=== PATIENT | female | born 1940 | race Caucasian/White ===

== ENCOUNTER 2020-04-08 14:20 | Emergency (ER) | payer MEDICARE, SELFPAY ==
--- NOTE | ~2020-04-08 | US_ITS ---
EXAMINATION: US venous doppler LE RT DATE: 04/08/2020 16:35 INDICATION: Right lower limb swelling TECHNIQUE: Giron scale images without and with compression and Doppler images of the right lower extre mity veins were obtained. COMPARISON: None FINDINGS: The right common femoral vein, profunda femoral vein, femoral vein, popliteal vein, peronea l trunk, posterior tibial veins, and greater saphenous vein are patent. IMPRESSION: 1. Patent right lower extremity veins. No evidence of deep venous thrombosis. Reviewed, dictated and finalized at location A.
--- NOTE | ~2020-04-08 | XR_ITS ---
XR chest 1V portable DATE: 04/08/2020 16:39 INDICATION: Wheezing. Left leg swelling. TECHNIQUE: Portable AP chest on 04/08/2020 at 1636 hours COMPARISON: 07/30/2006 AP and lateral views FINDINGS: Heart size appears normal. No pulmonary infiltrate or consolidation, pleural effusion or pu lmonary vascular congestion or pneumothorax. Surgical clips, right upper quadrant, consistent with prior cholecystectomy. Bilateral glenohumeral osteoarthritis. Osteopenia. IMPRESSION: No active cardiopulmonary disease Reviewed, dictated and finalized at location A.
--- NOTE | ~2020-04-08 | CT_ITS ---
EXAMINATION: CTA chest PE protocol DATE: 04/08/2020 19:25 INDICATION: Shortness of breath TECHNIQUE: Computed tomography angiography (CTA) of the chest was performed with 100 mL Omnipaque-350 intravenous contrast timed to evaluate the pulmonary arteries. Coronal maximum intensity projection 3D-reconstructions were created by the technologist. The dose-length product (DLP) was 306.70 mGy-cm. Automated exposure control and iterative reconstruction technique were employed. COMPARISON: None. FINDINGS: The pulmonary arteries are well-opacified. No pulmonary embolism is identified. There is a 5 mm nodule in the left lower lobe. Patchy airspace opacities are present in the lingula and upper lo bes. There is no pleural effusion or pneumothorax. Right paratracheal lymph nodes measure up to 10 mm in short axis. The heart size is normal. Calcified pulmonary nodules are consistent with old granulo matous disease. There is mild thoracic spondylosis. IMPRESSION: 1. No pulmonary embolism. 2. Minimal opacities of the lingula and upper lobes, likely infectious or inflammatory. 3. 5 mm nodule in the left lower lobe. If the patient has no risk factors for malignancy, no further follow up is required. If there are risk factors for malignancy (i.e., history of smoking, asbestos or radiation exposure), consider followup CT in 12 months. Reviewed, dictated and finalized at location A. IMPRESSION: 1. No pulmonary embolism. 2. Minimal opacities of the lingula and upper lobes, likely infectious or infla mmatory. 3. 5 mm nodule in the left lower lobe. If the patient has no risk factors for m alignancy, no further follow up is required. If there are risk factors for mal ignancy (i.e., history of smoking, asbestos or radiation exposure), consider fo llowup CT in 12 months.
[2020-04-08 14:26] VITALS: BP 182/115; PULSE 82; RESP 18; TEMP 37.3; O2SAT 100
--- NOTE | 2020-04-08 14:31 | ECG_ITS ---
Measurements Intervals [place] Rate: 70 P: 40 SC: 124 QRS: -32 QRSD: 111 T: 18 QT: 320 QTc: 347 Interpretive Statements SINUS RHYTHM LEFT AXIS DEVIATION VOLTAGE CRITERIA FOR LVH CANNOT RULE OUT SEPTAL INFARCT, AGE INDETERMINATE BORDERLINE ST ABNORMALITY- HIGH LATERAL LEADS BASELINE ARTIFACT- I, II, III, AVR, AVL, AVF ABNORMAL ECG Electronically Signed On 04-08-2020 14:52:42 CDT by Gigi Fairbanks D.O.
--- NOTE | 2020-04-08 14:45 | PC.NURSE ---
pt offered w/c to sit in wr, pt refusing states that she will walk.
[2020-04-08 14:50] LABS: Basophils Absolute Auto 0.1 K/mm3 (0.0-0.1); Basophils Percent Auto 0.5 % (0.2-1.2); Eosinophils Absolute Auto 0.2 K/mm3 (0-0.3); Eosinophils Percent Auto 1.9 % (0-4.4); Hematocrit 44.9 % (37.0-47.0); Hemoglobin 14.4 g/dL (12.0-15.0); Immature Granulocyte Absolute 0.05 K/mm3 (0.00-0.031); Immature Granulocyte Percent A 0.4 % (0-0.5); Lymphocytes Absolute Auto 4.02 K/mm3 (0.9-3.2); Mean Corpuscular HGB Conc 32.1 g/dl (32-36); Mean Corpuscular Volume 87.4 fl (80-100); Mean Platelet Volume 10.1 fl (7.4-10.4); Monocytes Percent Auto 8.7 % (2.6-8.5); Neutrophils Absolute Auto 6.4 K/mm3 (1.3-6.7); Neutrophils Percent Auto 54.5 % (45.5-73.1); Platelet Count Result 359 k/mm3 (150-375); Red Blood Count 5.14 M/mm3 (4.2-5.4); Red Cell Distribution Width 14.6 % (11.5-14.5); White Blood Count 11.8 K/mm3 (4.5-10.0)
[2020-04-08 15:02] LABS: Blood Urea Nitrogen 16 mg/dL (7-17); Calcium 10.3 mg/dL (8.4-10.2); Carbon Dioxide 25 mmol/L (22-30); Chloride 105 mmol/L (98-107); Estimated CRCL calculation 49 ml/min; Estimated Glomerular Filt Rate > 60; Glucose 91 mg/dL (65-105); Potassium 3.8 mmol/L (3.4-5.0); Sodium 140 mmol/L (137-145)
[2020-04-08 15:19] LABS: Add Urine Microscopic? NO; Appearance Urine Clear (Clear); Bilirubin Urine Negative (Negative); Blood Urine Negative (Negative); Color Urine Straw (Yellow); Glucose Urine UA Negative (Negative); Ketones Urine Negative (Negative); Leukocyte Esterase Ur Negative LEU/UL (Negative); Nitrate Urine Negative (Negative); Protein Urine Negative (Negative); Specific Grav Ur 1.009 (1.001-1.035); Urobilinogen Urine Negative mg/dL (<2.0)
--- NOTE | 2020-04-08 16:17 | ED.GENADULT ---
HPI - General Adult General Chief complaint: Weakness Stated complaint: Swelling of the legs, Pain bilateral arms Time Seen by Provider: 04/08/20 15:56 Source: patient Mode of arrival: ambulatory Limitations: no limitations History of Present Illness HPI narrative: This patient is a 79 year old woman with history of asthma who presents with c/o fatigue, wheezing and shortness of breath. Patient states for the past 6 weeks she has been wheezing. She has taken 2 rounds of antibiotics and steroids without relief of her symptoms. She denies hemoptysis or fever with her cough. She reports intermittent sharp chest pain but denies having pain currently. She is also concerned that she has been having worsening swelling to right lower extremity. She denies any trauma. She states she has been hospitalized for pneumonia twice in May 2019 and August 2019. Onset (ago): week(s) (6) Related Data Allergies Allergy/AdvReac Type Severity Reaction Status Date / Time codeine AdvReac Unknown NAUSEA Verified 01/16/18 12:37 hydromorphone AdvReac Unknown NAUSEA Verified 01/16/18 12:37 morphine AdvReac Unknown NAUSEA Verified 01/16/18 12:37 Review of Systems Review of Systems: All systems reviewed & are unremarkable except as noted in HPI and below Constitutional: Constitutional: Denies chills, Reports fatigue and Denies fever(s) ENT: Denies nasal congestion and Denies sore throat Cardiovascular: Cardiovascular: Reports chest pain, Denies rapid heart rate and Denies radiating jaw, neck or arm pain Respiratory: Respiratory: Reports cough, Reports dyspnea and Reports wheezing Gastrointestinal: Gastrointestinal: Denies abdominal pain, Denies diarrhea, Denies nausea and Denies vomiting Musculoskeletal: Musculoskeletal: Reports back pain (chronic) and Reports myalgias (chronic) Integumentary/Breasts: Skin/Breast: Reports system reviewed and no additional complaints, except as docu Neurologic: Reports numbness (to feet) PMFSH Past Medical History Medical History (Updated 04/08/20 @ 20:29 by Obdulia Toussaint MD) Chronic pain Hypertension Surgical History Surgical History (Updated 04/08/20 @ 16:19 by Obdulia Toussaint MD) Hx of cholecystectomy Social History Social History (Updated 04/08/20 @ 16:19 by Obdulia Toussaint MD) Smoking packs per day: 0.5 Smoking cigarettes per day: 10.0 Exam Const: General: alert Orientation/consciousness: patient oriented x3 HENMT: Head: normocephalic and atraumatic General nose exam: Normal external nose present Face and sinus: sinuses nontender and face symmetric Mouth: Yes Normal oral and palatal mucosa present, Yes lip normal and Yes oropharynx normal Throat: posterior oropharynx normal, tonsils normal and uvula midline Eyes: Conjunctivae: conjunctivae normal Pupils: Equal, round and reactive pupils present EOM: EOMs intact bilaterally Neck: Neck: normal visual inspection Chest: Chest palpation & inspection: normal inspection of the chest Resp: Effort & Inspection: normal respiratory effort, not labored and no retractions Auscultation: wheezes expiratory wheezes and throughout Cardio: Rate: regular rate Rhythm: regular rhythm Heart sounds: no murmurs GI: GI Palp: Yes Soft to palpation, No Tenderness to palpation present (GI), No Guarding due to palpation present (GI) and No Rigid due to palpation : General: Yes no CVA tenderness Back/Spine/Pelvis: Back: no CVA tenderness Skin: General skin exam: normal color Rashes: no rashes Neuro: General: patient oriented x3 and moves all extremities Extrem: Other: right leg swelling, nonpitting Psych: Mental Status: mental status grossly normal Course Reevaluation(s) Reevaluation #1: Patient states she feels better. She has 97% oxygenation with no fever. She will treated for acute bronchitis. She is no longer wheezing. Date: 04/08/20 Time: 20:14 Vital Signs Vital signs: Vital Signs Temperature 99.2 F 04/08/20 1
[2020-04-08 16:33] LABS: INR 0.9; Prothrombin Time 12.3 Seconds (11.1-14.7)
[2020-04-08 16:34] LABS: Partial Thromboplastin Time 34.3 SECONDS (22.3-36.8)
[2020-04-08 16:36] LABS: Alanine Aminotransferase 16 U/L (4-35); Albumin Level 4.8 g/dL (3.5-5.1); Alkaline Phosphatase 91 U/L (38-126); Aspartate Amino Transferase 28 U/L (14-36); Bilirubin,Total 0.2 mg/dL (0.2-1.3); Magnesium 1.8 mg/dL (1.6-2.3)
[2020-04-08 16:48] LABS: NT Pro B Type Natriuretic Pept 117 PG/ML (5-100); Troponin I < 0.012 ng/mL (0.000-0.034)
[2020-04-08] MEDS: predniSONE 20 MG TABLET 60 MG PO (17:14)
[2020-04-08 17:15] VITALS: BP 138/79; PULSE 70; RESP 25; TEMP 36.9; O2SAT 99
[2020-04-08] MEDS: ALBUTEROL SULFATE (*SP) AEROSOL 1 PUFF 2 PUFF INHALATION (17:28)
[2020-04-08] MEDS: ALBUTEROL SULFATE (*SP) INHALER 1 PUFF (17:28)
[2020-04-08 19:01] VITALS: BP 135/70; PULSE 69; RESP 22; O2SAT 100
[2020-04-08 20:49] VITALS: BP 159/91; PULSE 95; RESP 16; TEMP 36.7; O2SAT 98
[2020-04-09 10:22] LABS: SARS-CoV-2 RNA PCR Negative
== END 2020-04-08 21:07 | disposition home or self-care (01) ==
PROVIDERS: Emergency Medicine; Emergency Provider General Practice; PCP Nurse Practitioner Adult Health
DX: Z03.818 Encounter for observation for suspected exposure to other biological agents ruled out (principal); J20.9 Acute bronchitis, unspecified; R91.1 Solitary pulmonary nodule; I10 Essential (primary) hypertension; R06.02 Shortness of breath; F17.210 Nicotine dependence, cigarettes, uncomplicated; R94.31 Abnormal electrocardiogram [ECG] [EKG]
CPT/HCPCS: 36415; 71045; 71275; 80048; 80076; 81003; 83735; 83880; 84484; 85025; 85610; 85730; 87635; 93005; 93971; 99284; A9270; C9803; J7512; Q9967; U0003

== ENCOUNTER 2022-03-10 16:37 | Observation (INO) | payer MEDICARE, SELFPAY ==
[2022-03-10] VITALS (22 sets, daily range): BP systolic 127–171; BP diastolic 61–95; PULSE 59–114; RESP 10–25; TEMP 36.9; O2SAT 68–100
--- NOTE | ~2022-03-10 | CT_ITS ---
EXAMINATION: CTA chest PE protocol DATE: 03/10/2022 21:18 INDICATION: right sided CP, SOB TECHNIQUE: Computed tomography angiography (CTA) of the chest was performed with 100 mL Omnipaque-350 intravenous contrast timed to evaluate the pulmonary arteries. Coronal maximum intensity projection 3D-reconstructions were created by the technologist. The dose-length product (DLP) was 175.67 mGy-cm. Automated exposure control and iterative reconstruction technique were employed. COMPARISON: 04/08/2020. FINDINGS: Study quality: Adequate. Pulmonary arteries: No pulmonary emboli detected. Thoracic aorta: Mild ectasia, atherosclerotic calcification, and aortic wall thickening. Lung parenchyma and airways: Subsegmental areas of consolidation and surrounding tree-in-bud opacitie s in the lingula, peripheral right lower lobe, and anterior portions of the right upper lobe and late ral portions of the right middle lobe with bronchiectasis. Stable 5 mm left lower lobe nodule, requir es no additional follow-up. Thoracic inlet, axillae and chest wall: Unremarkable. Mediastinum: Borderline mediastinal lymphadenopathy. Heart and pericardium: Normal. Coronary artery calcifications: Absent. Pleura: Unremarkable. Upper abdomen: No significant finding. Bones: No acute osseous finding. IMPRESSION: No CT evidence of acute pulmonary embolus. Pulmonary findings suggestive of chronic inflammation/atyp ical infection. Reviewed, dictated and finalized at location K. IMPRESSION: No CT evidence of acute pulmonary embolus. Pulmonary findings suggestive of chr onic inflammation/atypical infection.
--- NOTE | ~2022-03-10 | XR_ITS ---
EXAMINATION: XR chest 2V Exam Date/Time: 03/10/2022 17:05 CDT CLINICAL HISTORY: chest pain X 5 DAYS, HX [facility] 2019 W/ STENTS, HX COPD/ASTHMA Comparison: X-ray chest 04/08/2020, 07/30/2006. CTPA 04/08/2020. RESULT: Lines, tubes, and devices: Cholecystectomy clips. Lungs and pleura: Hyperinflation can be seen with emphysema. Senescent changes. Calcified left lower lobe granuloma. Cardiomediastinal silhouette: Stable cardiomediastinal silhouette. Other: No acute osseous or upper abdominal finding. IMPRESSION: No acute cardiopulmonary process Reviewed, dictated and finalized at location K.
--- NOTE | 2022-03-10 16:44 | ECG_ITS ---
Measurements Intervals [place] Rate: 98 P: 52 MN: 146 QRS: -50 QRSD: 111 T: 89 QT: 346 QTc: 444 Interpretive Statements SINUS ARRHYTHMIA LEFT ANTERIOR SUPERIOR HEMIBLOCK ABNORMAL ECG COMPARED TO ECG 04/08/2020 14:43:43 NO SIGNIFICANT CHANGES Electronically Signed On 03-11-2022 11:40:57 CDT by Robi Garcia M.D.
--- NOTE | 2022-03-10 19:33 | ED.CHESTPAIN ---
HPI - Chest Pain General Chief Complaint: Chest Pain Stated Complaint: chest discomfort - abnormal EKG Time Seen by Provider: 03/10/22 19:31 Source: patient, family and RN notes reviewed Limitations: no limitations History of Present Illness HPI narrative: 81-year-old female presented to the emergency department for evaluation of right-sided chest pain that has been persistent for the last 5 days. Patient describes a sharp pain that has been constant and nonradiating. Patient states that the pain is worsened with cough and deep inspiration. Patient also describes associated nausea and fatigue. Patient denies any fevers. Patient had follow-up with her primary care physician and had an EKG. Patient was told due to the EKG she needed to present to the emergency department. EKG on arrival appears very similar to her EKG on 04/08/2020 Patient is not vaccinated against COVID or influenza. Patient does report a prior history of bladder and bowel surgery. History of kidney stones history of cholecystectomy. Patient had a previous IA that was associated with left-sided chest pain Related Data Home Medications Medication Instructions Recorded Confirmed aspirin 81 mg PO HS 03/11/22 03/11/22 clopidogrel 75 mg PO HS 03/11/22 03/11/22 losartan 50 mg PO HS 03/11/22 03/11/22 oxycodone-acetaminophen 1 tablet PO TID 03/11/22 03/11/22 pravastatin 40 mg PO HS 03/11/22 03/11/22 Allergies Allergy/AdvReac Type Severity Reaction Status Date / Time codeine AdvReac Unknown NAUSEA Verified 01/16/18 12:37 hydromorphone AdvReac Unknown NAUSEA Verified 01/16/18 12:37 morphine AdvReac Unknown NAUSEA Verified 01/16/18 12:37 Review of Systems Review of Systems: CONSTITUTIONAL: Chills and fatigue EYES: Denies visual changes, redness, or discharge. ENT: Denies rhinorrhea, congestion, sore throat, or otalgia. CARDIOVASCULAR: See HPI RESPIRATORY: See HPI GASTROINTESTINAL: Denies abdominal pain but does have associated nausea without vomiting GENITOURINARY: Denies dysuria or hematuria. SKIN: Denies rash or itching. MUSCULOSKELETAL: Denies back pain, joint pain, or myalgia. NEUROLOGIC: Denies headache, numbness, or weakness. [facility] Past Medical History Medical History (Updated 03/10/22 @ 22:00 by Avel Menendez MD) Chronic pain Hypertension Surgical History Surgical History (Updated 04/08/20 @ 16:19 by Obdulia Toussaint MD) Hx of cholecystectomy Family History Family History (Updated 03/11/22 @ 01:20 by Citlaly Jordan RN) Father Diabetes mellitus Social History Social History (Updated 04/08/20 @ 16:19 by Obdulia Toussaint MD) Smoking packs per day: 1 Smoking cigarettes per day: 20.0 Years smoked: 45 Smoking pack-years: 45.00 Smoking status: Current every day smoker Tobacco type: cigarettes Alcohol intake: never Substance use: never Substance use type: does not use Spiritual care concerns: No Exam Narrative: APPEARANCE: Well appearing, no pain, no distress, well-nourished. HEAD: normocephalic, atraumatic. EYES: PERRLA/EOMI, conjunctivae clear. NOSE: Normal no drainage NECK: Supple. No adenopathy, no masses. RESPIRATORY: Airway patent, respirations nonlabored. Clear to auscultation bilaterally, no rales, rhonchi, wheezing. CARDIOVASCULAR: Regular rate and rhythm without murmurs rubs or gallops. ABDOMINAL: Soft, nontender, nondistended, normal bowel sounds MUSCULOSKELETAL: Moves all extremities. Strength/ROM intact, No edema, No calf tenderness. NEURO: Alert. Cranial nerves II through XII intact. Grossly intact SKIN: Warm, dry. Normal Color PSYCHIATRIC: Normal affect/mood. Course Course Emergency Course: Patient arrived to the emergency department she was having cardiac rhythm changes where she was remained in a sinus rhythm but would alternate between sinus and sinus tach. Patient's heart rate was changed from 68-114 and then back to 68. Patient does have a history of prior IA. No prior diagnosis of
[2022-03-10 20:16] LABS: Alanine Aminotransferase 10 U/L (4-35); Albumin Level 4.1 g/dL (3.5-5.1); Alkaline Phosphatase 95 U/L (38-126); Anion Gap 9 mmol/L (8-16); Aspartate Amino Transferase 21 U/L (14-36); Bilirubin,Total 0.4 mg/dL (0.2-1.3); Blood Urea Nitrogen 12 mg/dL (7-17); Calcium 8.8 mg/dL (8.4-10.2); Carbon Dioxide 19 mmol/L (22-30); Chloride 112 mmol/L (98-107); Estimated Glomerular Filt Rate > 60; Glucose 129 mg/dL (65-110); Lipase 45 U/L (23-300); Potassium 3.7 mmol/L (3.4-5.0); Sodium 140 mmol/L (137-145)
[2022-03-10 20:27] LABS: Troponin I < 0.012 ng/mL (0.000-0.034)
[2022-03-10 21:05] LABS: Basophils Absolute Auto 0.1 K/mm3 (0.0-0.1); Basophils Percent Auto 0.3 % (0.2-1.2); Eosinophils Absolute Auto 0.6 K/mm3 (0-0.3); Eosinophils Percent Auto 4.1 % (0-4.4); Hemoglobin 11.7 g/dL (12.0-15.0); Immature Granulocyte Absolute 0.07 K/mm3 (0.00-0.031); Immature Granulocyte Percent A 0.5 % (0-0.5); Lymphocytes Absolute Auto 3.33 K/mm3 (0.9-3.2); Lymphocytes Percent Auto 22.2 % (18.3-44.2); Mean Corpuscular HGB Conc 31.6 g/dl (32-36); Mean Corpuscular Hemoglobin 27.9 pg (26-34); Mean Corpuscular Volume 88.3 fl (80-100); Mean Platelet Volume 9.9 fl (7.4-10.4); Monocytes Absolute Auto 0.9 K/mm3 (0.1-0.6); Monocytes Percent Auto 6.3 % (2.6-8.5); Neutrophils Percent Auto 66.6 % (45.5-73.1); Platelet Count Result 365 k/mm3 (150-375); Red Blood Count 4.19 M/mm3 (4.2-5.4); Red Cell Distribution Width 14.9 % (11.5-14.5)
[2022-03-10 21:15] LABS: INR 1.1; Prothrombin Time 13.9 Seconds (11.1-14.7)
[2022-03-10 21:27] LABS: NT Pro B Type Natriuretic Pept 312 pg/mL (5-100); Troponin I < 0.012 ng/mL (0.000-0.034)
[2022-03-10] MEDS: ASPIRIN 81 MG CHEWABLE TABLET 324 MG PO (22:54)
[2022-03-10] MEDS: SODIUM CHLORIDE 0.9% IV 500 ML 999 ML IV CONT (22:55)
[2022-03-10] MEDS: ONDANSETRON INJ 4 MG/2 ML VIAL IV PUSH (22:55)
[2022-03-10] MEDS: KETOROLAC 15 MG/ML VIAL (*BKC) IV PUSH (23:07)
[2022-03-10 23:55] LABS: Influenza A QL RT-PCR Negative (Negative); Influenza B QL RT-PCR Negative (Negative); SARS-CoV-2 RNA PCR Negative
[2022-03-11] VITALS (12 sets, daily range): BP systolic 103–141; BP diastolic 49–69; PULSE 52–65; RESP 14–20; TEMP 35.8–37; O2SAT 98–100; BMI 23.9
[2022-03-11 00:11] LABS: Troponin I < 0.012 ng/mL (0.000-0.034)
--- NOTE | 2022-03-11 01:02 | ADMGEN ---
This patient, Ni Neri, was admitted to Medical Room 251-01. Patient/family oriented to hospital policies and general routines including ID bracelet, bed and alarms, visiting hours, pain management, procedures, bathroom and other care routines, personal items, smoking policy, room service/diet, and visiting hours. Information on how to activate the Rapid Response Team has been discussed. Patient/Family are encouraged to report perceived risks to care and to ask questions if they do not understand what they are told or what they should do.
[2022-03-11] MEDS: SODIUM CHLORIDE 0.9% IV 1,000 ML 75 ML IV CONT (01:06)
--- NOTE | 2022-03-11 11:13 | PCCCNOTE ---
On 03/11/22, the student, [Margaret Hidalgo ], provided care and completed [facility] documentation on this patient. I have reviewed the student's documentation and agree with the findings.
[2022-03-11 11:32] LABS: Basophils Absolute Auto 0.1 K/mm3 (0.0-0.1); Basophils Percent Auto 0.5 % (0.2-1.2); Eosinophils Absolute Auto 0.5 K/mm3 (0-0.3); Eosinophils Percent Auto 4.8 % (0-4.4); Hematocrit 31.8 % (37.0-47.0); Hemoglobin 9.8 g/dL (12.0-15.0); Immature Granulocyte Absolute 0.03 K/mm3 (0.00-0.031); Immature Granulocyte Percent A 0.3 % (0-0.5); Lymphocytes Absolute Auto 2.64 K/mm3 (0.9-3.2); Lymphocytes Percent Auto 25.8 % (18.3-44.2); Mean Corpuscular HGB Conc 30.8 g/dl (32-36); Mean Corpuscular Hemoglobin 27.8 pg (26-34); Mean Corpuscular Volume 90.3 fl (80-100); Mean Platelet Volume 9.8 fl (7.4-10.4); Monocytes Absolute Auto 0.7 K/mm3 (0.1-0.6); Monocytes Percent Auto 7.1 % (2.6-8.5); Neutrophils Absolute Auto 6.3 K/mm3 (1.3-6.7); Neutrophils Percent Auto 61.5 % (45.5-73.1); Platelet Count Result 311 k/mm3 (150-375); Red Blood Count 3.52 M/mm3 (4.2-5.4); Red Cell Distribution Width 15.1 % (11.5-14.5); White Blood Count 10.2 K/mm3 (4.5-10.0)
[2022-03-11 11:43] LABS: Anion Gap 6 mmol/L (8-16); Blood Urea Nitrogen 13 mg/dL (7-17); Calcium 8.2 mg/dL (8.4-10.2); Carbon Dioxide 22 mmol/L (22-30); Chloride 112 mmol/L (98-107); Estimated Glomerular Filt Rate > 60; Glucose 90 mg/dL (65-110); Potassium 3.6 mmol/L (3.4-5.0); Sodium 140 mmol/L (137-145)
[2022-03-11 11:44] LABS: CRP 7.1 mg/dL (<1.0)
[2022-03-11 12:21] LABS: Erythrocyte Sedimentation Rate 87 mm/hr (0-20)
[2022-03-11 12:48] LABS: Folic Acid 9.6 ng/mL (2.76->20)
[2022-03-11 15:18] LABS: Hematocrit 30.7 % (37.0-47.0); Hemoglobin 9.8 g/dL (12.0-15.0)
[2022-03-11 16:58] LABS: Iron 39 ug/dL (37-170)
--- NOTE | 2022-03-11 17:00 | PM.SD2 ---
Same Day Admit/Disch: HPI History of Present Illness Chief complaint: pneumonia Narrative: Ni Neri is a 81 year old female with CAD, tobacco abuse and HTN who presents to the ED with complaints of chest pain. Patient lost her son about four weeks ago from lung cancer. She has had depressed mood with crying spells. She denies suicidal or homicidal ideation. She has been having decreased energy and feeling more fatigued over the past week. More recently, she has been having chest pain that is right-sided over the past 5 days. She denies any fever or chills. Pain is constant but worse at times with coughing and deep breathing. She describes it as a stabbing pain. She has occasional cough productive of yellow-white sputum but states this is no significant change control analyst the past 1-2 weeks. She denies shortness of breath. No sick contacts. She has seasonal allergies, asthma and COPD. She continues to smoke 1 pack a day. She has 2 parakeets at home and has had them for about a year. She has not been vaccinated against COVID or influenza. Patient has chronic back pain but this has not changed significantly recently. She complains of numbness in the bilateral lower extremities and is unsteady on her feet at times related to neuropathy. She tried Lyrica but was unable to tolerate this. She also complains of hands being cold and purple at times at rest and indoors that improved with massage. He denies any urinary symptoms. No GI symptoms. No odynophagia or dysphagia. No headaches. The remainder of the review of systems was negative. She presented to the emergency room for evaluation. [facility] Past Medical History Medical History (Updated 03/11/22 @ 17:13 by Anthony Fountain MD) CAD (coronary artery disease) March 2021 with stents placed Chronic pain COPD (chronic obstructive pulmonary disease) History of nephrolithiasis Hyperlipidemia Hypertension Surgical History Surgical History (Updated 03/11/22 @ 17:13 by Anthony Fountain MD) History of prolapse of bladder Hx of cholecystectomy Hx of lumbosacral spine surgery Hx of total knee replacement bilaterally S/P KERI-BSO over 2 surgeries Family History Family History (Updated 03/11/22 @ 01:20 by Citlaly Jordan RN) Father Diabetes mellitus Social History Social History (Updated 03/11/22 @ 17:14 by Anthony Fountain MD) Social History: Patient lives alone. She is . Chest drug or alcohol use. She is a full code. She nominated her daughter, Lubna Bonilla, to be the individual would make medical decisions for her if she is unable. She smokes 1 pack a day for the past 42 years. Smoking packs per day: 1 Smoking cigarettes per day: 20.0 Years smoked: 45 Smoking pack-years: 45.00 Smoking status: Current every day smoker Tobacco type: cigarettes Alcohol intake: never Substance use: never Substance use type: does not use Spiritual care concerns: No Same Day Admit/Disch: Med Pre-admit Medications Home Medications Medication Instructions Recorded Confirmed Type albuterol sulfate 2 puff INHALATION QID PRN #8 gm 04/08/20 03/11/22 Rx aspirin 81 mg PO HS 03/11/22 03/11/22 History clopidogrel 75 mg PO HS 03/11/22 03/11/22 History losartan 50 mg PO HS 03/11/22 03/11/22 History oxycodone-acetaminophen 1 tablet PO TID 03/11/22 03/11/22 History pravastatin 40 mg PO HS 03/11/22 03/11/22 History Exam Narrative: AF 98.6 117/58 57 20 99% Gen - well-nourished, well-developed female in no acute respiratory distress who is nontoxic-appearing lying semi recumbent in bed HEENT - normocephalic. Atraumatic. Pupils equal round and reactive. Extraocular motions intact. Sclera clear and anicteric. Nares patent. Oropharynx was clear. No oral lesions. Moist mucous membranes. Tongue was midline. Palate sofia symmetrically. No facial asymmetry. Neck - neck was supple. No dominant adenopathy, thyromegaly or masses. 2+ carotid upstrokes witho
[2022-03-11 17:07] LABS: Percent Iron Saturation 17 % (20-50)
[2022-03-13 18:14] LABS: Legionella pneumophila Ag Ur Not Detected (Not Detected)
--- NOTE | 2022-03-17 08:51 | PC.NURSE ---
JÚNIOR is negative. Bcx are negative. Urine legionella is negative. Dr. Fountain aware of the above. Results faxed to Roxana Graham APRN.
== END 2022-03-11 18:30 | disposition home or self-care (01) ==
LOC: ANHED 20:52 → ANH2MED 03-11 01:35
PROVIDERS: Emergency Medicine; Admitting Provider Internal Medicine; Emergency Provider Emergency Medicine; PCP Nurse Practitioner Adult Health; Visit Provider Internal Medicine
DX: J18.9 Pneumonia, unspecified organism (principal); R07.89 Other chest pain; I10 Essential (primary) hypertension; F17.210 Nicotine dependence, cigarettes, uncomplicated; I25.10 Atherosclerotic heart disease of native coronary artery without angina pectoris; R05.9 Cough, unspecified; Z20.822 Contact with and (suspected) exposure to COVID-19; J44.9 Chronic obstructive pulmonary disease, unspecified; D64.9 Anemia, unspecified
CPT/HCPCS: 36415; 71046; 71275; 80048; 80053; 82607; 82728; 82746; 83540; 83550; 83690; 83880; 84443; 84484; 85014; 85018; 85025; 85610; 85652; 85730; 86038; 86140; 87040; 87449; 87502; 93005; 96361; 96374; 96375; 99285; A9270; C9803; G0378; J0456; J0696; J1885; J2405; J7030; J7040; Q9967; U0003; U0005

== ENCOUNTER → 2022-05-01 10:41 | Outpatient (CLI) | payer MEDICARE, SELFPAY ==
--- NOTE | ~2022-05-01 | MR_ITS ---
EXAMINATION: MR lumbar spine wo con DATE: 05/01/2022 11:31 INDICATION: Low back pain. Bilateral leg pain. TECHNIQUE: Magnetic resonance imaging (MRI) of the lumbar spine was performed without intravenous con trast. Sequences included sagittal T2-weighted FSE, sagittal T2-weighted FS FSE, sagittal T1-weighted FSE, and axial T2-weighted FSE. COMPARISON: Lumbar spine MRI 12/13/2019 FINDINGS: There is 8 degrees levocurvature of lumbar spine. There is 3 mm retrolisthesis of L1 on L2, 5 mm retrolisthesis of L2 on L3 and L3 on L4, and 7 mm anterolisthesis of L4 on L5. Vertebral body h eights are normal. There is a chronic left L4 pars defect. There is moderately decreased disc height at T12-L1 and severely decreased disc height from L1-L2 through L5-S1 with endplate remodeling. There is ligamentum flavum flavum hypertrophy at all of the lumbar disc levels. The distal spinal cord sig nal intensity is normal. The conus medullaris is at L1-L2. The following disc levels are specifically discussed: L1-L2: The disc is bulging. There is moderate bilateral facet joint osteoarthritis. There is moderate bilateral neural foraminal stenosis. There is mild central canal stenosis. L2-L3: The disc is bulging. There is severe bilateral facet joint osteoarthritis. There is severe rig ht and moderate left neural foraminal stenosis. There is moderate central canal stenosis. L3-L4: The disc is bulging. There is severe bilateral facet joint osteoarthritis. There is moderate b ilateral neural foraminal stenosis. There is mild central canal stenosis. L4-L5: The disc is bulging. There is severe right facet joint osteoarthritis. There is ankylosis of l eft facet joint with severe hypertrophy. There is moderate bilateral neural foraminal stenosis. There is moderate central canal stenosis. L5-S1: The disc is bulging. There is severe bilateral facet joint osteoarthritis. There is moderate b ilateral neural foraminal stenosis. There is mild central canal stenosis. IMPRESSION: 1. Severe lumbar spondylosis, stable from 12/13/2019. Reviewed, dictated and finalized at location A.
== END ==
PROVIDERS: PCP Nurse Practitioner Adult Health; Visit Provider Nurse Practitioner Family
DX: M54.16 Radiculopathy, lumbar region (principal); M43.16 Spondylolisthesis, lumbar region
CPT/HCPCS: 72148

== ENCOUNTER 2023-11-29 12:14 | Outpatient (CLI) | payer MEDICARE, SELFPAY ==
[2023-11-29 18:56] LABS: Basophils Absolute Auto 0.1 K/mm3 (0.0-0.1); Basophils Percent Auto 0.4 % (0.2-1.2); Eosinophils Absolute Auto 0.2 K/mm3 (0-0.3); Hematocrit 40.1 % (37.0-47.0); Hemoglobin 11.8 g/dL (12.0-15.0); Immature Granulocyte Absolute 0.04 K/mm3 (0.00-0.031); Immature Granulocyte Percent A 0.3 % (0-0.5); Lymphocytes Absolute Auto 3.55 K/mm3 (0.9-3.2); Lymphocytes Percent Auto 29.3 % (18.3-44.2); Mean Corpuscular HGB Conc 29.4 g/dl (32-36); Mean Corpuscular Hemoglobin 27.7 pg (26-34); Mean Corpuscular Volume 94.1 fl (80-100); Mean Platelet Volume 10.4 fl (7.4-10.4); Monocytes Absolute Auto 0.6 K/mm3 (0.1-0.6); Monocytes Percent Auto 5.1 % (2.6-8.5); Neutrophils Absolute Auto 7.6 K/mm3 (1.3-6.7); Neutrophils Percent Auto 62.9 % (45.5-73.1); Platelet Count Result 392 k/mm3 (150-375); Red Blood Count 4.26 M/mm3 (4.2-5.4); Red Cell Distribution Width 14.4 % (11.5-14.5); White Blood Count 12.1 K/mm3 (4.5-10.0)
[2023-11-29 20:49] LABS: Anion Gap 11 mmol/L (8-16); Blood Urea Nitrogen 8 mg/dL (7-17); Calcium 9.5 mg/dL (8.4-10.2); Carbon Dioxide 22 mmol/L (22-30); Chloride 109 mmol/L (98-107); Cholesterol 139 mg/dL (0-200); Estimated Glomerular Filt Rate > 60; Glucose 72 mg/dL (65-110); HDL Direct 47 mg/dL; Potassium 3.9 mmol/L (3.4-5.0); Sodium 142 mmol/L (137-145); Triglycerides 90 mg/dL (<150)
[2023-11-29 20:59] LABS: Vitamin D 25 Hydroxy 19.4 ng/mL
[2023-11-29 21:01] LABS: LDL Cholesterol Direct 59 mg/dL
[2023-11-29 21:56] LABS: Folic Acid 11.5 ng/mL (2.76->20)
== END 2023-11-29 12:15 | disposition home or self-care (01) ==
PROVIDERS: PCP Nurse Practitioner Adult Health; Visit Provider Nurse Practitioner Adult Health
DX: R53.83 Other fatigue (principal); I10 Essential (primary) hypertension; D64.9 Anemia, unspecified; Z79.899 Other long term (current) drug therapy
CPT/HCPCS: 36415; 80048; 80061; 82306; 82607; 82746; 83735; 85025

== ENCOUNTER 2024-01-19 00:33 | Day surgery (SDC) | payer MEDICARE, SELFPAY ==
[2024-01-18 10:20] VITALS: BMI 23.1
[2024-01-19 10:05] VITALS: BP 131/76; PULSE 91; RESP 22; TEMP 36.4; O2SAT 99; BMI 23.9
--- NOTE | 2024-01-19 10:50 | WPDHPUPDATE1 ---
History and Physical Update Update Date/Time: 01/19/24 10:50 Ni Neri is an 83 y.o. WF w/recurrent syncope with little to no prodrome. A 30 day monitor did not show any significant findings. H/O atrial fibrillation, PSVT, CAD and h/o DC. Pt has held her Xarelto, last dose 01/16/24. History and Physical has been reviewed, including an updated exam of the patient. There are NO changes in the patient's condition. Risks, benefits, and alternatives have been discussed and questions answered. Patient agrees to proceed with procedure.
--- NOTE | 2024-01-19 10:56 | WPDMODSED ---
Moderate Sedation Note-Pt Data Patient Data Diagnosis: REcurrent syncope, here for an implantable loop recorder Present Complaint: Ni Neri is an 83 y.o. WF w/recurrent syncope with little to no prodrome.? A 30 day monitor did not show any significant findings.? H/O atrial fibrillation, PSVT, CAD and h/o CO.? Pt has held her Xarelto, last dose 12/2523. Procedure to be performed/Plan: Loop recorder implant under local anesthesia, poss conscious sedation. Allergies Allergy/AdvReac Type Severity Reaction Status Date / Time baclofen AdvReac Severe Other Verified 01/19/24 10:03 codeine AdvReac Intermediate NAUSEA Verified 01/19/24 10:03 hydromorphone AdvReac Intermediate NAUSEA Verified 01/19/24 10:03 morphine AdvReac Intermediate NAUSEA Verified 01/19/24 10:03 Home Medications Medication Instructions Recorded Confirmed Type albuterol sulfate 90 mcg/actuation 2 puff inhalation QID PRN 04/08/20 01/18/24 Rx aerosol inhaler shortness of breath or wheezing #8 grams losartan 50 mg tablet 50 mg PO DAILY 03/11/22 01/18/24 History oxycodone-acetaminophen 10 mg-325 1 tablet PO TID 03/11/22 01/18/24 History mg tablet pravastatin 40 mg tablet 40 mg PO HS 03/11/22 01/18/24 History Tylenol 500 mg BYMOUTH BID PRN Pain (Scale 11/29/23 01/18/24 History Score 4-6) rivaroxaban 20 mg tablet (Xarelto) 20 mg PO DAILY 11/29/23 01/18/24 History cholecalciferol (vitamin D3) 1,250 1,250 mcg PO WEEKLY #12 caps 11/30/23 01/18/24 Rx mcg (50,000 unit) capsule diltiazem HCl 120 mg 120 mg PO DAILY 01/18/24 History capsule,extended release 24 hr, controlled dorzolamide 22.3 mg-timolol 6.8 1 drp ophthalmic (eye) BID 01/18/24 01/18/24 History mg/mL eye drops Sedation/Anesthesia: No previous sedation/anesthesia problems (including family history). COUNT INCLUDES THE [facility] Past Medical History Medical History CAD (coronary artery disease) March 2021 with stents placed Chronic pain COPD (chronic obstructive pulmonary disease) History of nephrolithiasis Hyperlipidemia Hypertension Surgical History Surgical History History of prolapse of bladder Hx of cholecystectomy Hx of lumbosacral spine surgery Hx of total knee replacement bilaterally S/P KERI-BSO over 2 surgeries Family History Family History Father Diabetes mellitus Social History Social History Social History: Patient lives alone. She is . Chest drug or alcohol use. She is a full code. She nominated her daughter, Lubna Bonilla, to be the individual would make medical decisions for her if she is unable. She smokes 1 pack a day for the past 42 years. Smoking packs per day: 0.5 Smoking cigarettes per day: 10.0 Years smoked: 40 Smoking pack-years: 20.00 Smoking status: Light tobacco smoker Tobacco type: cigarettes Second hand tobacco smoke exposure: Yes Alcohol intake: never Substance use: never Substance use type: does not use Lack of Transportation: No Lack of Food: Never True Current Housing: I Have Housing Concerned About Future Housing: No Difficulty Paying Gas/Electric Bills: No Difficulty Paying for Meds: No Currently Unemployed: No Education: High School Diploma/GED Difficulty w/ Childcare or Family Care: No Living arrangements: alone Occupation/Education: retired Gender identity (if verbalized by the patient): Female Spiritual care concerns: No Agree to blood products: Yes Mod Sed Physical Exam Physical Exam Pre Procedural Exam: Normal: Appearance, Eyes, Ears, Nose, Neck, Throat, Airway, Lungs, Heart Size, Heart Rate, Heart Rhythm, Neuro Exam, Abdomen, Extremities and Skin (skin left prepectoral area is free of lesions.) Hours since solid foods: 12 (hr) Hours since liquid intake: 12
[2024-01-19 11:00] VITALS: BP 144/97; PULSE 80; RESP 18; O2SAT 97
[2024-01-19 11:05] VITALS: BP 159/77; PULSE 85; RESP 24; O2SAT 100
[2024-01-19 11:10] VITALS: BP 148/58; PULSE 65; RESP 24; O2SAT 100
[2024-01-19 11:15] VITALS: BP 141/60; PULSE 70; RESP 18; O2SAT 97
--- NOTE | 2024-01-19 11:29 | PM.OP ---
Procedure Note - Brief Procedure Note - Brief Date of procedure: 01/19/24 Recurrent Syncope Post-op diagnosis: Other (S/P MEDTRONIC LOOP RECORDER IMPLANTATION) Surgeon: Jillian Menendez MD Description of procedure: Uneventful implatnation Complications: No immediate complications Condition: Stable Disposition: Observation
[2024-01-19 11:30] VITALS: BP 140/58; PULSE 53; RESP 17; O2SAT 97
--- NOTE | 2024-01-19 11:30 | P.OP_ITS ---
Procedure Note - Detailed Date of Procedure 01/19/24 Pre-op Diagnosis Recurrent Syncope Post-op Diagnosis Other (s/p loop recorder implantation) Procedure Performed Implantation of a Medtronic loop recorder under local anesthesia Surgeon Jillian Menendez MD Anesthesia Local Indications Ni Neri is an 83 y.o. WF w/ recurrent syncope with little to no prodrome.? A 30 day monitor did not show any significant findings.? H/O atrial fibrillation, PSVT, CAD and h/o ID.? Pt has held her Xarelto, last dose 12/2523. Description of Procedure After informed consent, the patient's left parasternal area was prepped and draped in usual fashion. She received 1% lidocaine over the 3rd-4th intercostal space and a Medtronic LINQ loop recorder was inserted in the standard fashion. Hemostasis was obtained with local pressure. The incision was closed with skin adhesive, and dressed with a clean large Band-Aid. She tolerated the procedure well with no complications. The device was interrogated and R-wave sensing was found to be good, with R-wave of 0.29 mV. Follow-up: The patient is given information about remote monitoring, will follow-up in our office in 1 week for an incision check Implants Medtronic LINQ II, serial [id number] Estimated Blood Loss 1 (cc) Complications No immediate complications Condition Stable Disposition Observation
== END 2024-01-19 11:55 | disposition home or self-care (01) ==
PROVIDERS: PCP Nurse Practitioner Adult Health; Visit Provider Internal Medicine Cardiovascular Disease
PROC: (CPT 33285; principal; 2024-01-19 11:00)
DX: R55 Syncope and collapse (principal); I48.91 Unspecified atrial fibrillation; I25.10 Atherosclerotic heart disease of native coronary artery without angina pectoris; I25.2 Old myocardial infarction; Z79.01 Long term (current) use of anticoagulants; J45.909 Unspecified asthma, uncomplicated; I10 Essential (primary) hypertension; E78.2 Mixed hyperlipidemia
CPT/HCPCS: 33285; C1764

== ENCOUNTER 2024-02-28 11:56 | Outpatient (CLI) | payer MEDICARE, SELFPAY ==
[2024-02-28 20:05] LABS: Hematocrit 40.5 % (37.0-47.0); Hemoglobin 12.1 g/dL (12.0-15.0); Mean Corpuscular HGB Conc 29.9 g/dl (32-36); Mean Corpuscular Hemoglobin 27.3 pg (26-34); Mean Corpuscular Volume 91.4 fl (80-100); Mean Platelet Volume 10.6 fl (7.4-10.4); Platelet Count Result 339 k/mm3 (150-375); Red Blood Count 4.43 M/mm3 (4.2-5.4); Red Cell Distribution Width 15.9 % (11.5-14.5); White Blood Count 9.9 K/mm3 (4.5-10.0)
[2024-02-28 20:44] LABS: Vitamin D 25 Hydroxy 81.9 ng/mL
[2024-02-28 21:00] LABS: Appearance Urine Cloudy (Clear); Bacteria Urine None Seen /hpf; Bilirubin Urine Negative (Negative); Blood Urine Negative (Negative); Color Urine Yellow (Yellow); Glucose Urine UA Negative (Negative); Ketones Urine Negative (Negative); Leukocyte Esterase Ur Negative LEU/UL (Negative); Need Manual Microscopic Reviewed; Nitrate Urine Negative (Negative); Non Pathogenic Casts 0-2; Protein Urine Negative (Negative); Specific Grav Ur 1.012 (1.001-1.035); Squamous Epithelial Cell Urine Occasional /hpf (Few); Urobilinogen Urine 0.2 mg/dL (<2.0); WBC Urine 0-5 /hpf (0-3)
[2024-02-28 21:07] LABS: Add Urine Microscopic? YES
[2024-02-28 21:36] LABS: Alanine Aminotransferase 12 U/L (6-35); Albumin Level 4.4 g/dL (3.5-5.1); Alkaline Phosphatase 78 U/L (38-126); Anion Gap 8 mmol/L (4-12); Aspartate Amino Transferase 59 U/L (14-36); Bilirubin,Total 0.4 mg/dL (0.2-1.3); Blood Urea Nitrogen 17 mg/dL (7-17); Calcium 9.6 mg/dL (8.4-10.2); Carbon Dioxide 22 mmol/L (22-30); Chloride 111 mmol/L (98-107); Cholesterol 133 mg/dL (0-200); Estimated Glomerular Filt Rate > 60; Glucose 84 mg/dL (65-110); HDL Direct 63 mg/dL; Potassium 3.8 mmol/L (3.4-5.0); Sodium 141 mmol/L (137-145); Triglycerides 54 mg/dL (<150)
[2024-02-28 21:47] LABS: LDL Cholesterol Direct 58 mg/dL
== END 2024-02-28 11:57 | disposition home or self-care (01) ==
PROVIDERS: PCP Nurse Practitioner Adult Health; Visit Provider Nurse Practitioner Adult Health
DX: E55.9 Vitamin D deficiency, unspecified (principal); R53.83 Other fatigue; I10 Essential (primary) hypertension
CPT/HCPCS: 36415; 80053; 80061; 81001; 82306; 85027

== ENCOUNTER 2024-09-19 12:06 | Outpatient (CLI) | payer MEDICARE, SELFPAY ==
[2024-09-19 20:01] LABS: Add Urine Microscopic? NO; Appearance Urine Clear (Clear); Bilirubin Urine Negative (Negative); Blood Urine Negative (Negative); Color Urine Yellow (Yellow); Glucose Urine UA Negative (Negative); Ketones Urine Negative (Negative); Leukocyte Esterase Ur Negative LEU/UL (Negative); Nitrate Urine Negative (Negative); Protein Urine Negative (Negative); Specific Grav Ur 1.008 (1.001-1.035); Urobilinogen Urine 0.2 mg/dL (<2.0)
[2024-09-19 20:10] LABS: Basophils Absolute Auto 0.1 K/mm3 (0.0-0.1); Basophils Percent Auto 0.4 % (0.2-1.2); Eosinophils Absolute Auto 0.2 K/mm3 (0-0.3); Hematocrit 41.7 % (37.0-47.0); Hemoglobin 13.2 g/dL (12.0-15.0); Immature Granulocyte Absolute 0.07 K/mm3 (0.00-0.031); Immature Granulocyte Percent A 0.5 % (0-0.5); Lymphocytes Absolute Auto 6.39 K/mm3 (0.9-3.2); Lymphocytes Percent Auto 42.1 % (18.3-44.2); Mean Corpuscular HGB Conc 31.7 g/dl (32-36); Mean Corpuscular Hemoglobin 29.5 pg (26-34); Mean Corpuscular Volume 93.1 fl (80-100); Mean Platelet Volume 10.5 fl (7.4-10.4); Monocytes Absolute Auto 1.2 K/mm3 (0.1-0.6); Monocytes Percent Auto 7.7 % (2.6-8.5); Neutrophils Absolute Auto 7.4 K/mm3 (1.3-6.7); Neutrophils Percent Auto 48.3 % (45.5-73.1); Platelet Count Result 351 k/mm3 (150-375); Red Blood Count 4.48 M/mm3 (4.2-5.4); Red Cell Distribution Width 15.2 % (11.5-14.5); White Blood Count 15.2 K/mm3 (4.5-10.0)
[2024-09-19 20:41] LABS: Alanine Aminotransferase 13 U/L (6-35); Albumin Level 4.7 g/dL (3.5-5.1); Alkaline Phosphatase 73 U/L (38-126); Anion Gap 10 mmol/L (4-12); Aspartate Amino Transferase 45 U/L (14-36); Bilirubin,Total 0.4 mg/dL (0.2-1.3); Blood Urea Nitrogen 18 mg/dL (7-17); Calcium 10.2 mg/dL (8.4-10.2); Carbon Dioxide 24 mmol/L (22-30); Chloride 106 mmol/L (98-107); Cholesterol 176 mg/dL (0-200); Estimated Glomerular Filt Rate > 60; Glucose 72 mg/dL (65-110); HDL Direct 92 mg/dL; Potassium 3.4 mmol/L (3.4-5.0); Sodium 140 mmol/L (137-145); Triglycerides 92 mg/dL (<150)
[2024-09-19 20:52] LABS: LDL Cholesterol Direct 54 mg/dL
[2024-09-19 23:00] LABS: Iron 70 ug/dL (37-170)
[2024-09-19 23:10] LABS: Percent Iron Saturation 20 % (20-50)
[2024-09-19 23:12] LABS: Vitamin D 25 Hydroxy 99.1 ng/mL
== END 2024-09-19 12:07 | disposition home or self-care (01) ==
LOC: ANHBWCLAB 12:08
PROVIDERS: PCP Nurse Practitioner Adult Health; Visit Provider Nurse Practitioner Adult Health
DX: R39.9 Unspecified symptoms and signs involving the genitourinary system (principal); R53.83 Other fatigue; E78.5 Hyperlipidemia, unspecified; D64.9 Anemia, unspecified; E55.9 Vitamin D deficiency, unspecified
CPT/HCPCS: 36415; 80053; 80061; 81003; 82306; 82728; 83540; 83550; 84443; 85025; 87077; 87086; 87186

== ENCOUNTER 2024-11-30 19:23 | Observation (INO) | payer MEDICARE, SELFPAY ==
--- NOTE | ~2024-11-30 | XR_ITS ---
EXAMINATION: XR chest 2V Exam Date/Time: 11/30/2024 20:10 FILAMENT CUTTER HISTORY: shortness of breath, COUGH, CHILLS Comparison: X-ray chest and CTPA 03/10/2022. RESULT: Lines, tubes, and devices: Cholecystectomy clips. Loop recorder.. Lungs and pleura: Calcified left lower lobe granuloma. Scattered reticulonodular opacities, most pro nounced in the right middle lobe with bronchial wall thickening. Cardiomediastinal silhouette: Stable. Other: No acute osseous or upper abdominal finding. IMPRESSION: Pulmonary opacities likely represent chronic respiratory bronchiolitis and/or atypical infection. Ove rlying acute infection not excluded. Reviewed, dictated and finalized at location K. MENT CUTTER IMPRESSION: Pulmonary opacities likely represent chronic respiratory bronchiolitis and/or a typical infection. Overlying acute infection not excluded.
[2024-11-30 19:49] VITALS: BP 191/82; PULSE 65; RESP 22; TEMP 37; O2SAT 98
--- NOTE | 2024-11-30 19:51 | ECG_ITS ---
Test Date: 2024-11-30 20:36:53 Measurements Intervals [place] Rate: 75 P: 0 DC: 0 QRS: -19 QRSD: 112 T: -5 QT: 351 QTc: 393 Interpretive Statements SINUS ARRHYTHMIA MODERATE INTRAVENTRICULAR CONDUCTION DELAY [110+ ms QRS DURATION] VOLTAGE CRITERIA FOR LVH [MEETS CRITERIA IN ONE OF: R(aVL), S(V1), R(V5), R(V5/V6)+S(V1)] NONSPECIFIC ST & T-WAVE ABNORMALITY No previous ECG available for comparison Electronically Signed On 12-01-2024 16:49:21 INSPECTION ENGINEER by Daljit Herzog M.D.
[2024-11-30 20:51] LABS: Basophils Absolute Auto 0.1 K/mm3 (0.0-0.1); Basophils Percent Auto 0.3 % (0.2-1.2); Eosinophils Absolute Auto 0.1 K/mm3 (0-0.3); Eosinophils Percent Auto 0.8 % (0-4.4); Hematocrit 37.7 % (37.0-47.0); Hemoglobin 12.2 g/dL (12.0-15.0); Immature Granulocyte Absolute 0.09 K/mm3 (0.00-0.031); Immature Granulocyte Percent A 0.5 % (0-0.5); Lymphocytes Absolute Auto 3.03 K/mm3 (0.9-3.2); Lymphocytes Percent Auto 16.7 % (18.3-44.2); Mean Corpuscular HGB Conc 32.4 g/dl (32-36); Mean Corpuscular Volume 86.7 fl (80-100); Mean Platelet Volume 9.1 fl (7.4-10.4); Monocytes Absolute Auto 1.3 K/mm3 (0.1-0.6); Monocytes Percent Auto 7.2 % (2.6-8.5); Neutrophils Absolute Auto 13.6 K/mm3 (1.3-6.7); Neutrophils Percent Auto 74.5 % (45.5-73.1); Platelet Count Result 470 k/mm3 (150-375); Red Blood Count 4.35 M/mm3 (4.2-5.4); Red Cell Distribution Width 13.6 % (11.5-14.5); White Blood Count 18.2 K/mm3 (4.5-10.0)
[2024-11-30 21:01] LABS: Alanine Aminotransferase 14 U/L (6-35); Albumin Level 4.2 g/dL (3.5-5.1); Alkaline Phosphatase 93 U/L (38-126); Anion Gap 11 mmol/L (4-12); Aspartate Amino Transferase 22 U/L (14-36); Bilirubin,Total 0.6 mg/dL (0.2-1.3); Blood Urea Nitrogen 10 mg/dL (7-17); Calcium 9.9 mg/dL (8.4-10.2); Carbon Dioxide 23 mmol/L (22-30); Chloride 108 mmol/L (98-107); Estimated Glomerular Filt Rate > 60; Glucose 104 mg/dL (65-110); Potassium 3.1 mmol/L (3.4-5.0); Sodium 142 mmol/L (137-145)
[2024-12-01] VITALS (12 sets, daily range): BP systolic 123–156; BP diastolic 65–76; PULSE 61–86; RESP 17–20; TEMP 36.8–37.4; O2SAT 92–99; BMI 22.8
--- NOTE | 2024-12-01 01:20 | ED_ITS ---
HPI - General Adult General Chief complaint: Shortness of Breath/Dyspnea Stated complaint: sent by PCP for sob, generalized bone pain, htn Time Seen by Provider: 12/01/24 00:52 History of Present Illness HPI narrative: Patient a 84 year old female who presents emergency department with chief complaint of shortness of breath cough generalized body aches and elevated blood sugar. Patient states that around [place] she started feeling weak and was seen in her primary doctor's office today and there was concern for pneumonia. The patient was sent to the emergency department for evaluation Related Data Home Medications ?Medication ?Instructions ?Recorded ?Confirmed ?Last Taken ?Type losartan 50 mg tablet 50 mg PO DAILY 03/11/22 09/19/24 01/18/24 History oxycodone-acetaminophen 10 mg-325 1 tablet PO TID 03/11/22 09/19/24 01/18/24 History mg tablet pravastatin 40 mg tablet 40 mg PO HS 03/11/22 09/19/24 01/17/24 History Tylenol 500 mg BYMOUTH BID PRN Pain (Scale 11/29/23 09/19/24 01/19/24 History Score 4-6) rivaroxaban 20 mg tablet (Xarelto) 20 mg PO DAILY 11/29/23 09/19/24 01/16/24 History dorzolamide 22.3 mg-timolol 6.8 1 drp ophthalmic (eye) BID 01/18/24 09/19/24 01/18/24 History mg/mL eye drops Allergies Allergy/AdvReac Type Severity Reaction Status Date / Time baclofen AdvReac Severe Other Verified 11/30/24 19:29 codeine AdvReac Intermediate NAUSEA Verified 11/30/24 19:29 hydromorphone AdvReac Intermediate NAUSEA Verified 11/30/24 19:29 morphine AdvReac Intermediate NAUSEA Verified 11/30/24 19:29 Review of Systems 2 Review of Systems: A 10 system review of systems was completed on the patient and is negative except for what is stated in the HPI. Nursing and ancillary documentation was reviewed. [facility] Past Medical History Medical History COPD (chronic obstructive pulmonary disease) Hyperlipidemia CAD (coronary artery disease) March 2021 with stents placed History of nephrolithiasis Chronic pain Hypertension Surgical History Surgical History History of prolapse of bladder S/P KERI-BSO over 2 surgeries Hx of total knee replacement bilaterally Hx of lumbosacral spine surgery Hx of cholecystectomy Family History Family History Father Diabetes mellitus Social History Social History Social History: Patient lives alone. She is . Chest drug or alcohol use. She is a full code. She nominated her daughter, Lubna Bonilla, to be the individual would make medical decisions for her if she is unable. She smokes 1 pack a day for the past 42 years. Smoking packs per day: 0.5 Smoking cigarettes per day: 10.0 Years smoked: 40 Smoking pack-years: 20.00 Smoking status: Current every day smoker Tobacco type: cigarettes Second hand tobacco smoke exposure: Yes Alcohol intake: never Substance use: never Substance use type: does not use Lack of Transportation: No Lack of Food: Never True Current Housing: I Have Housing Concerned About Future Housing: No Difficulty Paying Gas/Electric Bills: No Difficulty Paying for Meds: No Currently Unemployed: No Education: High School Diploma/GED Difficulty w/ Childcare or Family Care: No Living arrangements: alone Occupation/Education: retired Gender identity (if verbalized by the patient): Female Spiritual care concerns: No Agree to blood products: Yes Exam 2 Narrative: GENERAL: Well-appearing, well-nourished, and in no acute distress. HEAD: Normocephalic, atraumatic. EYES: PERRLA and EOMI. ENT: Nares clear, no rhinorrhea or epistaxis. Mucous membranes moist. NECK: Supple. CHEST: Clear to auscultation. No respiratory distress. HEART: Regular rate and rhythm. No murmur heard. Normal peripheral pulses. ABDOMEN: Soft, nontender, nondistended, normal active bowel sounds. EXTREMITIES: Normal range of motion. No edema. SKIN: Warm, dry, no rash. NEURO: No focal deficits. Alert and oriented x3. PSYCH: Normal mood and affect. Course Vital Signs Vital signs: Vital Signs Temperature 37.0 C 11/30/24 19:49 Pulse Rate 65 01/09/25 19:49 Respiratory Rate 22 H 11/30/24 19:49 Blood Pressure 191/82 H 11/30/24 19:49 Pulse Oximetry 98 11/30/24 19:49 Temperature 37.0 C 11/30/24 19:49 Pulse Rate 69 12/01/24 00:51 Respiratory Rate 19 12/01/24 00:51 Blood Pressure 146/69 H 12/01/24 00:51 Pulse Oximetry 98 12/01/24 00:51 Oxygen Delivery Autopap 12/01/24 00:48 Medical Decision Making MDM Narrative Medical decision making narrative: Differential diagnosis includes pneumonia, influenza, COVID, RSV, UTI Laboratory studies were obtained [place] [id number] chest x-ray showed interstitial infiltrates concerning for possible infectious process patient was also positive for influenza Patient was started on Tamiflu The patient was started on Rocephin and Zithromax The case was discussed with the hospitalist and the patient will be admitted for further care Vital Signs Vital Signs: Vital Signs Temperature 37.0 C 11/30/24 19:49 Pulse Rate 65 11/30/24 19:49 Respiratory Rate 22 H 11/30/24 19:49 Blood Pressure 191/82 H 11/30/24 19:49 Pulse Oximetry 98 11/30/24 19:49 Temperature 37.0 C 11/30/24 19:49 Pulse Rate 69 12/01/24 00:51 Respiratory Rate 19 12/01/24 00:51 Blood Pressure 146/69 H 12/01/24 00:51 Pulse Oximetry 98 12/01/24 00:51 Oxygen Delivery Autopap 12/01/24 00:48 Lab Data 11/30/24 20:44 11/30/24 20:44 Labs: Lab Results 11/30/24 12/01/24 12/01/24 Range/Units 20:44 02:59 03:12 WBC 18.2 H (4.5-10.0) K/mm3 RBC 4.35 (4.2-5.4) M/mm3 Hgb 12.2 (12.0-15.0) g/dL Hct 37.7 (37.0-47.0) % MCV 86.7 (80-100) fl MCH 28.0 (26-34) pg MCHC 32.4 (32-36) g/dl RDW 13.6 (11.5-14.5) % Plt Count 470 H (150-375) k/mm3 MPV 9.1 (7.4-10.4) fl Immature Gran % (Auto) 0.5 (0-0.5) % Neut % (Auto) 74.5 H (45.5-73.1) % Lymph % (Auto) 16.7 L (18.3-44.2) % [place] % (Auto) 7.2 (2.6-8.5) % Eos % (Auto) 0.8 (0-4.4) % Baso % (Auto) 0.3 (0.2-1.2) % Lymph # (Auto) 3.03 (0.9-3.2) K/mm3 [place] # (Auto) 1.3 H (0.1-0.6) K/mm3 Eos # (Auto) 0.1 (0-0.3) K/mm3 Baso # (Auto) 0.1 (0.0-0.1) K/mm3 Abs Immat Gran (auto) 0.09 H (0.00-0.031) K/mm3 Absolute Neuts (auto) 13.6 H (1.3-6.7) K/mm3 Absolute Nucleated RBC 0.000 (0.0-0.012) K/mm3 Nucleated RBC % 0.0 (0.0-0.2) % Sodium 142 (137-145) mmol/L Potassium 3.1 L (3.4-5.0) mmol/L Chloride 108 H (98-107) mmol/L Carbon Dioxide 23 (22-30) mmol/L Anion Gap 11 (4-12) mmol/L BUN 10 D (7-17) mg/dL Creatinine 0.49 L (0.7-1.0) mg/dL Estim Creat Clear Calc Not Reportable Estimated GFR > 60 (59 - ) Glucose 104 (65-110) mg/dL Lactic Acid 1.0 (0.7-2.0) mmol/L Calcium 9.9 (8.4-10.2) mg/dL Total Bilirubin 0.6 (0.2-1.3) mg/dL AST 22 (14-36) U/L ALT 14 (6-35) U/L Alkaline Phosphatase 93 (38-126) U/L Troponin I < 0.012 (0.000-0.034) ng/mL Total Protein 8.0 (6.3-8.2) g/dL Albumin 4.2 (3.5-5.1) g/dL Procalcitonin 0.1 ng/mL Urine Color Yellow (Yellow) Urine Appearance Clear (Clear) Urine pH 6.5 (5.0-9.0) Ur Specific [place] 1.018 (1.001-1.035) Urine Protein Trace (Negative) mg/dL Urine Glucose (UA) Negative (Negative) mg/dL Urine Ketones Negative (Negative) mg/dL Ur Blood (Man) Negative (Negative) Urine Nitrate Negative (Negative) Urine Bilirubin Negative (Negative) Urine Urobilinogen 0.2 (<2.0) mg/dL Leukocyte Esterase Rfl Negative (Negative) MAXIMILIANO/UL Urine RBC 3-5 H (0-2) /hpf Urine WBC 0-5 (0-3) /hpf Ur Squamous Epith Cells None seen (Few) /hpf Urine Bacteria None seen /hpf Urine Casts 0-2 Influenza A (RT-PCR) Positive A (Negative) Influenza B (RT-PCR) Negative (Negative) RSV (RT-PCR) Negative (Negative) SARS-CoV-2 RNA (RT-PCR) Negative (Negative) Discharge Plan Discharge Clinical Impression: Influenza A, Leukocytosis Pneumonia Qualifiers: Pneumonia type: due to unspecified organism Laterality: right Lung location: u nspecified part of lung Qualified Code(s): J18.9 - Pneumonia, unspecified organism Patient Disposition: Still a Patient Condition: Stable Patient Language: Dutch Prescriptions: No Action Xarelto 20 mg tablet 20 mg PO DAILY Rx Instructions: must administer with evening meal Tylenol 500 mg BYMOUTH BID PRN (Reason: Pain (Scale Score 4-6)) Rx Instructions: 500mg PRN albuterol sulfate 90 mcg/actuation HFA aerosol inhaler 2 puff INHALATION QID PRN (Reason: shortness of breath or wheezing) Qty: 8 0RF losartan 50 mg tablet 50 mg PO DAILY pravastatin 40 mg tablet 40 mg PO HS oxycodone-acetaminophen 10-325 mg tablet 1 tablet PO TID dorzolamide-timolol 22.3-6.8 mg/mL drops 1 drp ophthalmic (eye) BID Rx Instructions: 1 drop both eyes twice/daily trazodone 50 mg tablet 50 mg PO QHS PRN (Reason: insomnia) Qty: 90 1RF cholecalciferol (vitamin D3) 1,250 mcg (50,000 unit) capsule See Rx Instructions .ROUTE .COMPLEX Qty: 12 1RF Dose Instruction: TAKE 1 CAPSULE BY MOUTH ONCE WEEKLY ON MONDAYS Rx Instructions: TAKE 1 CAPSULE BY MOUTH ONCE WEEKLY ON MONDAYS Follow-up/Referrals: Roxana Graham APRN [Primary Care Provider] - Time of Disposition: 04:22
[2024-12-01 03:28] LABS: Add Urine Microscopic? YES; Appearance Urine Clear (Clear); Bacteria Urine None Seen /hpf; Bilirubin Urine Negative (Negative); Blood Urine Negative (Negative); Color Urine Yellow (Yellow); Glucose Urine UA Negative (Negative); Ketones Urine Negative (Negative); Leukocyte Esterase Ur Negative LEU/UL (Negative); Nitrate Urine Negative (Negative); Non Pathogenic Casts 0-2; Protein Urine Trace mg/dL (Negative); Specific Grav Ur 1.018 (1.001-1.035); Squamous Epithelial Cell Urine None Seen /hpf (Few); Urobilinogen Urine 0.2 mg/dL (<2.0); WBC Urine 0-5 /hpf (0-3); pH Urine 6.5 (5.0-9.0)
[2024-12-01 03:31] LABS: Troponin I < 0.012 ng/mL (0.000-0.034)
[2024-12-01 03:49] LABS: Influenza A QL RT-PCR Positive (Negative); Influenza B QL RT-PCR Negative (Negative); RSV RNA, RT-PCR Negative (Negative); SARS-CoV-2 RNA PCR Negative (Negative)
[2024-12-01 03:50] LABS: Procalcitonin 0.1 ng/mL
[2024-12-01] MEDS: AZITHROMYCIN 500 MG/NS 250 ML 500 MG/250 ML BAG 250 MG IVPB (04:27)
--- NOTE | 2024-12-01 05:55 | ADMGEN ---
This patient, Ni Neri, was admitted to 3 [facility] Surg Room 327-01. Patient/family oriented to hospital policies and general routines including ID bracelet, bed and alarms, visiting hours, pain management, procedures, bathroom and other care routines, personal items, smoking policy, room service/diet, and visiting hours. Information on how to activate the Rapid Response Team has been discussed. Patient/Family are encouraged to report perceived risks to care and to ask questions if they do not understand what they are told or what they should do.
[2024-12-01] MEDS: IPRATROPIUM 0.5 MG/ALBUTEROL SULFATE 2.5 MG AMPUL.NEB 3 ML INHALATION ×3 (07:19→20:45)
[2024-12-01 08:38] LABS: Basophils Absolute Auto 0.1 K/mm3 (0.0-0.1); Basophils Percent Auto 0.5 % (0.2-1.2); Eosinophils Absolute Auto 0.1 K/mm3 (0-0.3); Eosinophils Percent Auto 0.8 % (0-4.4); Hematocrit 32.6 % (37.0-47.0); Hemoglobin 10.4 g/dL (12.0-15.0); Immature Granulocyte Absolute 0.05 K/mm3 (0.00-0.031); Immature Granulocyte Percent A 0.4 % (0-0.5); Lymphocytes Percent Auto 21.2 % (18.3-44.2); Mean Corpuscular HGB Conc 31.9 g/dl (32-36); Mean Corpuscular Hemoglobin 27.7 pg (26-34); Mean Corpuscular Volume 86.9 fl (80-100); Mean Platelet Volume 9.3 fl (7.4-10.4); Monocytes Absolute Auto 1.2 K/mm3 (0.1-0.6); Monocytes Percent Auto 8.2 % (2.6-8.5); Neutrophils Absolute Auto 9.8 K/mm3 (1.3-6.7); Neutrophils Percent Auto 68.9 % (45.5-73.1); Platelet Count Result 387 k/mm3 (150-375); Red Blood Count 3.75 M/mm3 (4.2-5.4); Red Cell Distribution Width 13.7 % (11.5-14.5); White Blood Count 14.2 K/mm3 (4.5-10.0)
[2024-12-01 09:09] LABS: Alanine Aminotransferase 10 U/L (6-35); Albumin Level 3.3 g/dL (3.5-5.1); Alkaline Phosphatase 67 U/L (38-126); Anion Gap 6 mmol/L (4-12); Aspartate Amino Transferase 16 U/L (14-36); Bilirubin,Total 0.5 mg/dL (0.2-1.3); Blood Urea Nitrogen 9 mg/dL (7-17); Calcium 8.8 mg/dL (8.4-10.2); Carbon Dioxide 26 mmol/L (22-30); Chloride 109 mmol/L (98-107); Estimated Glomerular Filt Rate > 60; Glucose 98 mg/dL (65-110); Sodium 141 mmol/L (137-145)
[2024-12-01] MEDS: OSELTAMIVIR PHOSPHATE 30 MG CAPSULE PO ×2 (09:32→20:34)
[2024-12-01] MEDS: ACETAMINOPHEN 325 MG TABLET 650 MG PO (09:34)
--- NOTE | 2024-12-01 14:43 | P.HP_ITS ---
H&P: HPI History of Present Illness Date/Time: 12/01/24 14:43 Chief Complaint: Shortness of breath Narrative: Patient a 84 year old female who presents emergency department with chief complaint of shortness of breath cough generalized body aches and elevated blood sugar. Patient states that around [place] she started feeling weak and was seen in her primary doctor's office today and there was concern for pneumonia. The patient was sent to the emergency department for evaluation. She was hypertensive on arrival to the ED. Laboratory studies showed elevated white cell count 18,000. Chest x-ray interst itial infiltrates concerning for possible infectious process. Influenza RSV say COVID swab was done and was positive for influenza A. Patient was started on Tamiflu and Rocephin azithromycin. Admitted for further treatment. Review of Systems Review of Systems: - CONSTITUTIONAL: Denies weight loss, fe reina and chills. - HEENT: Denies changes in vision and he aring - RESPIRATORY: Reports SOB and cough. - CV: Denies palpitations and CP. - GI: Denies abdominal pain, nausea, vom iting and diarrhea. - : Denies dysuria and urinary frequen cy. - MSK: Denies myalgia and joint pain. - SKIN: Denies rash and pruritus. - NEUROLOGICAL: Denies headache and sync ope. - PSYCHIATRIC: Denies recent changes in mood. Denies anxiety and depression. [facility] Past Medical History Medical History COPD (chronic obstructive pulmonary disease) Hyperlipidemia CAD (coronary artery disease) March 2021 with stents placed History of nephrolithiasis Chronic pain Hypertension Surgical History Surgical History History of prolapse of bladder S/P KERI-BSO over 2 surgeries Hx of total knee replacement bilaterally Hx of lumbosacral spine surgery Hx of cholecystectomy Family History Family History Father Diabetes mellitus Social History Social History Social History: Patient lives alone. She is . Chest drug or alcohol use. She is a full code. She nominated her daughter, Lubna Bonilla, to be the individual would make medical decisions for her if she is unable. She smokes 1 pack a day for the past 42 years. Smoking packs per day: 0.5 Smoking cigarettes per day: 10.0 Years smoked: 40 Smoking pack-years: 20.00 Smoking status: Current every day smoker Tobacco type: cigarettes Second hand tobacco smoke exposure: Yes Alcohol intake: never Substance use: never Substance use type: does not use Do You Feel Safe in your Home?: Yes Lack of Transportation: No Lack of Food: Never True Current Housing: I Have Housing Concerned About Future Housing: No Difficulty Paying Gas/Electric Bills: No Difficulty Paying for Meds: No Currently Unemployed: No Education: High School Diploma/GED Difficulty w/ Childcare or Family Care: No Living arrangements: alone Occupation/Education: retired Gender identity (if verbalized by the patient): Female Spiritual care concerns: No Agree to blood products: Yes Meds Home Medications and Allergies Home Medications ?Medication ?Instructions ?Recorded ?Confirmed ?Type albuterol sulfate 90 mcg/actuation 2 puff inhalation QID PRN 04/08/20 12/01/24 Rx aerosol inhaler shortness of breath or wheezing #8 grams losartan 50 mg tablet 50 mg PO DAILY 03/11/22 12/01/24 History oxycodone-acetaminophen 10 mg-325 1 tablet PO TID 03/11/22 12/01/24 History mg tablet pravastatin 40 mg tablet 40 mg PO HS 03/11/22 12/01/24 History Tylenol 500 mg BYMOUTH BID PRN Pain (Scale 11/29/23 12/01/24 History Score 4-6) rivaroxaban 20 mg tablet (Xarelto) 20 mg PO DAILY 11/29/23 12/01/24 History dorzolamide 22.3 mg-timolol 6.8 1 drp ophthalmic (eye) BID 01/18/24 12/01/24 History mg/mL eye drops trazodone 50 mg tablet 50 mg PO QHS PRN insomnia #90 tabs 10/16/24 12/01/24 Rx cholecalciferol (vitamin D3) 1,250 See Rx Instructions .Route 10/23/24 12/01/24 Rx mcg (50,000 unit) capsule .COMPLEX #12 caps latanoprost 0.005 % eye drops 1 drp EACH EYE QPM 12/01/24 12/01/24 History Allergies Allergy/AdvReac Type Severity Reaction Status Date / Time baclofen AdvReac Severe Other Verified 11/30/24 19:29 codeine AdvReac Intermediate NAUSEA Verified 11/30/24 19:29 hydromorphone AdvReac Intermediate NAUSEA Verified 11/30/24 19:29 morphine AdvReac Intermediate NAUSEA Verified 11/30/24 19:29 Vital Signs Vital Signs - 24 hr 11/30/24 19:49 12/01/24 00:48 12/01/24 00:51 Temperature 98.6 F Pulse Rate 65 69 Respiratory Rate 22 H 19 Blood Pressure 191/82 H 146/69 H Pulse Oximetry 98 98 98 Oxygen Delivery Autopap Fraction of Inspired Oxygen 12/01/24 05:21 12/01/24 05:56 12/01/24 07:19 Temperature 98.2 F Pulse Rate 86 61 Respiratory Rate 20 18 Blood Pressure 152/71 H 156/76 H Pulse Oximetry 99 98 95 Oxygen Delivery Room Air Fraction of Inspired Oxygen 21 12/01/24 07:19 12/01/24 07:31 12/01/24 13:13 Temperature Pulse Rate 67 62 85 Respiratory Rate 20 20 20 Blood Pressure Pulse Oximetry Oxygen Delivery Fraction of Inspired Oxygen 12/01/24 13:23 Temperature Pulse Rate 81 Respiratory Rate 20 Blood Pressure Pulse Oximetry Oxygen Delivery Fraction of Inspired Oxygen Exam Narrative: GENERAL: Well-appearing, well-nourished, and in no acute distress. HEAD: Normocephalic, atraumatic. EYES: PERRLA and EOMI. ENT: Nares clear, no rhinorrhea or epistaxis. Mucous membranes moist. NECK: Supple. CHEST: Coarse breath sound with bilateral rhonchi, No respiratory distress. HEART: Regular rate and rhythm. No murmur heard. Normal peripheral pulses. ABDOMEN: Soft, nontender, nondistended, normal active bowel sounds. EXTREMITIES: Normal range of motion. No edema. SKIN: Warm, dry, no rash. NEURO: No focal deficits. Alert and oriented x3. PSYCH: Normal mood and affect. H&P: Results Labs Labs: Short CBC 11/30/24 12/01/24 Range/Units 20:44 08:22 WBC 18.2 H 14.2 H (4.5-10.0) K/mm3 Hgb 12.2 10.4 L (12.0-15.0) g/dL Hct 37.7 32.6 L (37.0-47.0) % Plt Count 470 H 387 H (150-375) k/mm3 BMP 11/30/24 12/01/24 20:44 08:22 Sodium 142 141 Potassium 3.1 L 3.0 L Chloride 108 H 109 H Carbon Dioxide 23 26 BUN 10 D 9 Creatinine 0.49 L 0.43 L Glucose 104 98 Calcium 9.9 8.8 Cardiac Enzymes 12/01/24 Range/Units 02:59 Troponin I < 0.012 (0.000-0.034) ng/mL Liver Function 11/30/24 12/01/24 Range/Units 20:44 08:22 Total Bilirubin 0.6 0.5 (0.2-1.3) mg/dL AST 22 16 (14-36) U/L ALT 14 10 (6-35) U/L Alkaline Phosphatase 93 67 (38-126) U/L Albumin 4.2 3.3 L (3.5-5.1) g/dL Urine 12/01/24 Range/Units 03:12 Urine Color Yellow (Yellow) Urine Appearance Clear (Clear) Urine pH 6.5 (5.0-9.0) Ur Specific [place] 1.018 (1.001-1.035) Urine Protein Trace (Negative) mg/dL Urine Glucose (UA) Negative (Negative) mg/dL Assessment and Plan Assessment and plan (1) Hypertension: Code(s): I10 - Essential (primary) hypertension Status: Acute (2) CAD (coronary artery disease): Code(s): I25.10 - Atherosclerotic heart disease of [place] coronary artery without angina pectoris Status: Acute (3) Hyperlipidemia: Code(s): E78.5 - Hyperlipidemia, unspecified Status: Acute (4) Influenza A: Code(s): J10.1 - Influenza due to other identified influenza virus with other respiratory manifestations Status: Acute (5) Pneumonia: Qualifiers: Laterality: right Lung location: unspecified part of lung Pneumonia type: due to unspecified organism Qualified Code(s): J18.9 - Pneumonia, unspecified organism Code(s): J18.9 - Pneumonia, unspecified organism Status: Acute (6) COPD (chronic obstructive pulmonary disease): Code(s): J44.9 - Chronic obstructive pulmonary disease, unspecified Status: Acute Plan Patient a 84 year old female who presents emergency department with chief complaint of shortness of breath cough generalized body aches and elevated blood sugar. Patient states that around [place] she started feeling weak and was seen in her primary doctor's office today and there was concern for pneumonia. The patient was sent to the emergency department for evaluation. She was hypertensive on arrival to the ED. Laboratory studies showed elevated white cell count 18,000. Lactate normal troponin negative procalcitonin 0.1 urinalysis was negative for infection. Chest x-ray interstitial infiltrates concerning for possible infectious process. Influenza RSV say COVID swab was done and was positive for influenza A. Patient was started on Tamiflu and Rocephin azithromycin. Admitted for further treatment. Hypokalemia replace and monitor DVT prophylaxis Xarelto Hypertension Hyperlipidemia Coronary artery disease status post stents Proximal atrial fibrillation History of syncope Chronic back pain with spinal stenosis Code status full code Hospitalist [facility] Advance Care Plan I have confirmed that the patient's Advanced Care Plan is present, code status is documented, or surrogate decision maker is listed in patient medical record.: Yes Medication Reconciliation I have utilized all available resources to obtain, update and review the patients current medications (includes all prescriptions, OTC, herbals, cannabis, and nutritional supplements).: Yes
[2024-12-01] MEDS: oxyCODONE/ACETAMINOPHEN (*CRX) 10-325 MG TABLET 1 TAB PO (17:27)
[2024-12-01] MEDS: DORZOLAMIDE/TIMOLOL OPHTH SOL 10 ML BOTTLE 1 DROP EACH EYE (17:27)
[2024-12-01] MEDS: RIVAROXABAN 20 MG TABLET PO (17:27)
[2024-12-01] MEDS: LATANOPROST 0.005% OP SOLN 2.5 ML BTL 1 DROP EACH EYE (17:27)
[2024-12-01] MEDS: ONDANSETRON INJ 4 MG/2 ML VIAL IV PUSH (18:14)
[2024-12-01] MEDS: PRAVASTATIN SODIUM 20 MG TABLET 40 MG PO (20:33)
[2024-12-02] VITALS (12 sets, daily range): BP systolic 112–129; BP diastolic 47–65; PULSE 63–90; RESP 16–18; TEMP 36.7–37.4; O2SAT 90–99
[2024-12-02] MEDS: IPRATROPIUM 0.5 MG/ALBUTEROL SULFATE 2.5 MG AMPUL.NEB 3 ML INHALATION ×4 (01:58→20:37)
[2024-12-02] MEDS: AZITHROMYCIN 500 MG/NS 250 ML 500 MG/250 ML BAG 250 MG IVPB (05:16)
[2024-12-02 06:55] LABS: Basophils Absolute Auto 0.1 K/mm3 (0.0-0.1); Basophils Percent Auto 0.3 % (0.2-1.2); Eosinophils Absolute Auto 0.1 K/mm3 (0-0.3); Eosinophils Percent Auto 0.6 % (0-4.4); Hematocrit 30.1 % (37.0-47.0); Hemoglobin 9.4 g/dL (12.0-15.0); Immature Granulocyte Absolute 0.06 K/mm3 (0.00-0.031); Immature Granulocyte Percent A 0.4 % (0-0.5); Lymphocytes Absolute Auto 2.69 K/mm3 (0.9-3.2); Lymphocytes Percent Auto 16.5 % (18.3-44.2); Mean Corpuscular HGB Conc 31.2 g/dl (32-36); Mean Corpuscular Hemoglobin 27.6 pg (26-34); Mean Corpuscular Volume 88.3 fl (80-100); Mean Platelet Volume 9.2 fl (7.4-10.4); Monocytes Absolute Auto 1.5 K/mm3 (0.1-0.6); Neutrophils Percent Auto 73.2 % (45.5-73.1); Platelet Count Result 362 k/mm3 (150-375); Red Blood Count 3.41 M/mm3 (4.2-5.4); Red Cell Distribution Width 13.9 % (11.5-14.5); White Blood Count 16.3 K/mm3 (4.5-10.0)
[2024-12-02 07:09] LABS: Alanine Aminotransferase 9 U/L (6-35); Alkaline Phosphatase 60 U/L (38-126); Anion Gap 6 mmol/L (4-12); Aspartate Amino Transferase 15 U/L (14-36); Bilirubin,Total 0.4 mg/dL (0.2-1.3); Blood Urea Nitrogen 13 mg/dL (7-17); Calcium 8.5 mg/dL (8.4-10.2); Carbon Dioxide 24 mmol/L (22-30); Chloride 110 mmol/L (98-107); Estimated Glomerular Filt Rate > 60; Glucose 101 mg/dL (65-110); Magnesium 1.8 mg/dL (1.6-2.3); Potassium 3.1 mmol/L (3.4-5.0); Sodium 140 mmol/L (137-145)
[2024-12-02] MEDS: LOSARTAN POTASSIUM 50 MG TABLET PO (09:12)
[2024-12-02] MEDS: OSELTAMIVIR PHOSPHATE 30 MG CAPSULE PO ×2 (09:12→20:28)
[2024-12-02] MEDS: DORZOLAMIDE/TIMOLOL OPHTH SOL 10 ML BOTTLE 1 DROP EACH EYE ×2 (09:13→18:28)
--- NOTE | 2024-12-02 14:30 | P.PNIM_ITS ---
Progress Note: A&P Assessment and Plan (1) Hypertension: Code(s): I10 - Essential (primary) hypertension Status: Acute (2) CAD (coronary artery disease): Code(s): I25.10 - Atherosclerotic heart disease of [place] coronary artery without angina pectoris Status: Acute (3) Hyperlipidemia: Code(s): E78.5 - Hyperlipidemia, unspecified Status: Acute (4) Influenza A: Code(s): J10.1 - Influenza due to other identified influenza virus with other respiratory manifestations Status: Acute (5) Pneumonia: Qualifiers: Laterality: right Lung location: unspecified part of lung Pneumonia type: due to unspecified organism Qualified Code(s): J18.9 - Pneumonia, unspecified organism Code(s): J18.9 - Pneumonia, unspecified organism Status: Acute (6) COPD (chronic obstructive pulmonary disease): Code(s): J44.9 - Chronic obstructive pulmonary disease, unspecified Status: Acute Plan Patient a 84 year old female who presents emergency department with chief complaint of shortness of breath cough generalized body aches and elevated blood sugar. Patient states that around [place] she started feeling weak and was seen in her primary doctor's office today and there was concern for pneumonia. The patient was sent to the emergency department for evaluation. She was hypertensive on arrival to the ED. Laboratory studies showed elevated white cell count 18,000. Lactate normal troponin negative procalcitonin 0.1 urinalysis was negative for infection. Chest x-ray interstitial infiltrates concerning for possible infectious process. Influenza RSV say COVID swab was done and was positive for influenza A. Patient was started on Tamiflu and Rocephin azithromycin. Admitted for further treatment. Slowly improving. Continue current treatment Anemia: No signs of bleeding. Continue to monitor. Hypokalemia replace and monitor DVT prophylaxis Xarelto Hypertension Hyperlipidemia Coronary artery disease status post stents Proximal atrial fibrillation History of syncope Chronic back pain with spinal stenosis Code status full code Subjective Date/time seen: 12/02/24 14:30 Interval history: No overnight events. Feeling stronger. Still has cough Review of Systems Review of Systems: All systems reviewed & are unremarkable except as noted in HPI and below Exam Narrative: GENERAL: Well-appearing, well-nourished, and in no acute distress. HEAD: Normocephalic, atraumatic. EYES: PERRLA and EOMI. ENT: Nares clear, no rhinorrhea or epistaxis. Mucous membranes moist. NECK: Supple. CHEST: Coarse breath sound with bilateral rhonchi, No respiratory distress. HEART: Regular rate and rhythm. No murmur heard. Normal peripheral pulses. ABDOMEN: Soft, nontender, nondistended, normal active bowel sounds. EXTREMITIES: Normal range of motion. No edema. SKIN: Warm, dry, no rash. NEURO: No focal deficits. Alert and oriented x3. PSYCH: Normal mood and affect. Objective Data Vital Signs Vital Signs: Vital Signs - 24 hr 12/01/24 16:42 12/01/24 20:00 12/01/24 20:45 Temperature Pulse Rate Respiratory Rate Blood Pressure Pulse Oximetry 92 Oxygen Delivery Room Air Room Air Room Air 12/01/24 20:45 12/01/24 20:56 12/01/24 21:32 Temperature 99.0 F Pulse Rate 64 66 62 Respiratory Rate 20 20 17 Blood Pressure 123/65 Pulse Oximetry 95 Oxygen Delivery 12/02/24 01:58 12/02/24 01:58 12/02/24 02:07 Temperature Pulse Rate 73 71 Respiratory Rate 18 18 Blood Pressure Pulse Oximetry 92 Oxygen Delivery Room Air 12/02/24 05:46 12/02/24 08:09 12/02/24 08:09 Temperature 98.1 F Pulse Rate 80 68 Respiratory Rate 16 18 Blood Pressure 123/47 L Pulse Oximetry 93 90 Oxygen Delivery Room Air 12/02/24 08:18 12/02/24 09:15 12/02/24 13:45 Temperature Pulse Rate 71 67 Respiratory Rate 18 18 Blood Pressure Pulse Oximetry Oxygen Delivery Room Air 12/02/24 13:52 Temperature Pulse Rate 68 Respiratory Rate 18 Blood Pressure Pulse Oximetry Oxygen Delivery Intake/Output Intake/Output: Intake & Output 11/29/24 11/30/24 12/01/24 12/02/24 23:59 23:59 23:59 23:59 Intake Total 410 740 Balance 410 740 Meds/Results Medications: Active Medications Generic Name Dose Route Start Last Admin Trade Name Freq PRN Reason Stop Dose Admin Acetaminophen 650 mg 12/01/24 04:20 12/01/24 09:34 Acetaminophen 325 Mg Tablet PO 650 mg Q4H PRN Administration Mild Pain (1-3) or Fever Acetaminophen 500 mg 12/01/24 15:05 Acetaminophen 500 Mg Tablet PO BID PRN Pain (Scale Score 4-6) Albuterol 2 puff 12/01/24 14:47 Albuterol Sulfate (*Sp) Aerosol 1 Puff INHALATION QID PRN shortness of breath or wheezing Albuterol/Ipratropium 3 ml 12/01/24 08:00 12/02/24 13:43 Ipratropium 0.5 Mg/Albuterol Sulfate 2.5 Mg Ampul.Neb 3 Ml INHALATION 3 ml Q6HRT TANYA Administration Dorzolamide/Timolol 1 drop 12/01/24 17:00 12/02/24 09:13 Dorzolamide/Timolol Ophth [place] 10 Ml Bottle EACH EYE 1 drop BID TANYA Administration Ergocalciferol 50,000 units 12/04/24 09:00 Ergocalciferol 50,000 Units Capsule BY MOUTH Mo@0900 TANYA Ceftriaxone Sodium 1 gm in 50 mls @ 100 mls/hr 12/02/24 05:00 12/02/24 05:46 Rocephin 1 Gm/Ns 50 Ml IVPB Infused Q24H TANYA Infusion Azithromycin 500 mg in 250 mls @ 250 mls/hr 12/02/24 06:00 12/02/24 06:10 Zithromax IVPB Infused Q24H TANYA Infusion Latanoprost 1 drop 12/01/24 18:00 12/01/24 17:27 Latanoprost 0.005% Op Soln 2.5 Ml Btl EACH EYE 1 drop QPM TANYA Administration Losartan Potassium 50 mg 12/02/24 09:00 12/02/24 09:12 Losartan Potassium 50 Mg Tablet PO 50 mg DAILY TANYA Administration Miscellaneous Information 1 each 12/02/24 00:01 Percocet Ordered As Tid Scheduled. Ok To Leave Scheduled Or Make The Order Tid Prn Pain R XX 01/01/25 00:00 CLARIFY TANYA Ondansetron HCl 4 mg 12/01/24 17:43 12/01/24 18:14 Ondansetron Inj 4 Mg/2 Ml Vial IV PUSH 4 mg Q6H PRN Administration Nausea And Vomiting Oseltamivir Phosphate 30 mg 12/01/24 09:00 12/02/24 09:12 Oseltamivir Phosphate 30 Mg Capsule PO 12/06/24 08:59 30 mg Q12HR TANYA Administration Oxycodone/Acetaminophen 1 tab 12/01/24 17:00 12/02/24 14:00 Oxycodone/Acetaminophen (*Crx) 10-325 Mg Tablet PO Not Given TID [facility] Pravastatin Sodium 40 mg 12/01/24 21:00 12/01/24 20:33 Pravastatin Sodium 20 Mg Tablet PO 40 mg HS TANYA Administration Rivaroxaban 20 mg 12/01/24 17:00 12/01/24 17:27 Rivaroxaban 20 Mg Tablet PO 20 mg DAILY@1700 [facility] Administration Trazodone HCl 50 mg 12/01/24 14:47 Trazodone Hcl 50 Mg Tablet PO QHS PRN insomnia Radiology Results: ITS Impressions Chest X-Ray 11/30/24 20:24 IMPRESSION: Pulmonary opacities likely represent chronic respiratory bronchiolitis and/or atypical infection. Overlying acute infection not excluded. Labs Labs: Laboratory Results - last 24 hr 12/02/24 06:41 WBC 16.3 H RBC 3.41 L Hgb 9.4 L Hct 30.1 L MCV 88.3 MCH 27.6 MCHC 31.2 L RDW 13.9 Plt Count 362 MPV 9.2 Immature Gran % (Auto) 0.4 Neut % (Auto) 73.2 H Lymph % (Auto) 16.5 L [place] % (Auto) 9.0 H Eos % (Auto) 0.6 Baso % (Auto) 0.3 Lymph # (Auto) 2.69 [place] # (Auto) 1.5 H Eos # (Auto) 0.1 Baso # (Auto) 0.1 Abs Immat Gran (auto) 0.06 H Absolute Neuts (auto) 12.0 H Absolute Nucleated RBC 0.000 Nucleated RBC % 0.0 Sodium 140 Potassium 3.1 L Chloride 110 H Carbon Dioxide 24 Anion Gap 6 BUN 13 Creatinine 0.56 L Estim Creat Clear Calc Not Reportable Estimated GFR > 60 Glucose 101 Calcium 8.5 Magnesium 1.8 Total Bilirubin 0.4 AST 15 ALT 9 Alkaline Phosphatase 60 Total Protein 6.0 L Albumin 3.0 L
--- NOTE | 2024-12-02 17:18 | PC.NURSE ---
On 12/03/24, the PUMP SERVICE SUPERVISOR, [Cami Duff ], provided care and completed [facility] documentation on this patient. I have reviewed the PUMP SERVICE SUPERVISOR's documentation and agree with the findings.
[2024-12-02] MEDS: RIVAROXABAN 20 MG TABLET PO (18:26)
[2024-12-02] MEDS: POTASSIUM CHLORIDE 20 MEQ ER TABLET 40 MEQ PO (18:28)
[2024-12-02] MEDS: LATANOPROST 0.005% OP SOLN 2.5 ML BTL 1 DROP EACH EYE (18:29)
[2024-12-02] MEDS: ONDANSETRON INJ 4 MG/2 ML VIAL IV PUSH (18:44)
[2024-12-02] MEDS: PRAVASTATIN SODIUM 20 MG TABLET 40 MG PO (20:28)
[2024-12-03] VITALS (9 sets, daily range): BP systolic 101–127; BP diastolic 68–87; PULSE 59–103; RESP 14–20; TEMP 36.7–37.1; O2SAT 95–97
[2024-12-03] MEDS: AZITHROMYCIN 500 MG/NS 250 ML 500 MG/250 ML BAG 125 MG IVPB (05:49)
--- NOTE | 2024-12-03 05:56 | PCRCNOTE ---
Window of time for administration has passed. See next scheduled administration.
[2024-12-03 06:39] LABS: Basophils Absolute Auto 0.1 K/mm3 (0.0-0.1); Basophils Percent Auto 0.5 % (0.2-1.2); Eosinophils Absolute Auto 0.2 K/mm3 (0-0.3); Eosinophils Percent Auto 1.1 % (0-4.4); Hematocrit 30.2 % (37.0-47.0); Hemoglobin 9.6 g/dL (12.0-15.0); Immature Granulocyte Absolute 0.06 K/mm3 (0.00-0.031); Immature Granulocyte Percent A 0.4 % (0-0.5); Lymphocytes Absolute Auto 2.77 K/mm3 (0.9-3.2); Lymphocytes Percent Auto 20.3 % (18.3-44.2); Mean Corpuscular HGB Conc 31.8 g/dl (32-36); Mean Corpuscular Hemoglobin 28.5 pg (26-34); Mean Corpuscular Volume 89.6 fl (80-100); Mean Platelet Volume 9.6 fl (7.4-10.4); Monocytes Absolute Auto 1.4 K/mm3 (0.1-0.6); Monocytes Percent Auto 10.3 % (2.6-8.5); Neutrophils Absolute Auto 9.2 K/mm3 (1.3-6.7); Neutrophils Percent Auto 67.4 % (45.5-73.1); Platelet Count Result 393 k/mm3 (150-375); Red Blood Count 3.37 M/mm3 (4.2-5.4); Red Cell Distribution Width 13.6 % (11.5-14.5); White Blood Count 13.7 K/mm3 (4.5-10.0)
[2024-12-03 06:42] LABS: Alanine Aminotransferase 10 U/L (6-35); Albumin Level 3.2 g/dL (3.5-5.1); Alkaline Phosphatase 63 U/L (38-126); Anion Gap 4 mmol/L (4-12); Aspartate Amino Transferase 18 U/L (14-36); Bilirubin,Total 0.4 mg/dL (0.2-1.3); Blood Urea Nitrogen 14 mg/dL (7-17); Calcium 8.8 mg/dL (8.4-10.2); Carbon Dioxide 26 mmol/L (22-30); Chloride 108 mmol/L (98-107); Estimated Glomerular Filt Rate > 60; Glucose 97 mg/dL (65-110); Magnesium 1.8 mg/dL (1.6-2.3); Potassium 4.1 mmol/L (3.4-5.0); Sodium 138 mmol/L (137-145)
[2024-12-03] MEDS: IPRATROPIUM 0.5 MG/ALBUTEROL SULFATE 2.5 MG AMPUL.NEB 3 ML INHALATION ×3 (07:25→19:59)
[2024-12-03] MEDS: LOSARTAN POTASSIUM 50 MG TABLET PO (10:14)
[2024-12-03] MEDS: OSELTAMIVIR PHOSPHATE 30 MG CAPSULE PO ×2 (10:14→20:31)
[2024-12-03] MEDS: DORZOLAMIDE/TIMOLOL OPHTH SOL 10 ML BOTTLE 1 DROP EACH EYE ×2 (10:14→18:24)
--- NOTE | 2024-12-03 12:12 | P.PNIM_ITS ---
Progress Note: A&P Assessment and Plan (1) Hypertension: Code(s): I10 - Essential (primary) hypertension Status: Acute (2) CAD (coronary artery disease): Code(s): I25.10 - Atherosclerotic heart disease of [place] coronary artery without angina pectoris Status: Acute (3) Hyperlipidemia: Code(s): E78.5 - Hyperlipidemia, unspecified Status: Acute (4) Influenza A: Code(s): J10.1 - Influenza due to other identified influenza virus with other respiratory manifestations Status: Acute (5) Pneumonia: Qualifiers: Laterality: right Lung location: unspecified part of lung Pneumonia type: due to unspecified organism Qualified Code(s): J18.9 - Pneumonia, unspecified organism Code(s): J18.9 - Pneumonia, unspecified organism Status: Acute (6) COPD (chronic obstructive pulmonary disease): Code(s): J44.9 - Chronic obstructive pulmonary disease, unspecified Status: Acute Plan Patient a 84 year old female who presents emergency department with chief complaint of shortness of breath cough generalized body aches and elevated blood sugar. Patient states that around [place] she started feeling weak and was seen in her primary doctor's office today and there was concern for pneumonia. The patient was sent to the emergency department for evaluation. She was hypertensive on arrival to the ED. Laboratory studies showed elevated white cell count 18,000. Lactate normal troponin negative procalcitonin 0.1 urinalysis was negative for infection. Chest x-ray interstitial infiltrates concerning for possible infectious process. Influenza RSV say COVID swab was done and was positive for influenza A. Patient was started on Tamiflu and Rocephin azithromycin. Admitted for further treatment. Slowly improving. Continue current treatment with IV antibiotics. Leukocytosis improving. Anemia: No signs of bleeding. Continue to monitor and remains stable. Generalized weakness will order PT OT Hypokalemia replace and monitor DVT prophylaxis Xarelto Hypertension Hyperlipidemia Coronary artery disease status post stents Proximal atrial fibrillation History of syncope Chronic back pain with spinal stenosis Code status full code Subjective Date/time seen: 12/03/24 12:12 Interval history: No overnight events. Weakness persist. Improving. Still has cough with expectoration. Review of Systems Review of Systems: All systems reviewed & are unremarkable except as noted in HPI and below Exam Narrative: GENERAL: thin built frail looking, and in no acute distress. HEAD: Normocephalic, atraumatic. EYES: PERRLA and EOMI. ENT: Nares clear, no rhinorrhea or epistaxis. Mucous membranes moist. NECK: Supple. CHEST: Coarse breath sound with bilateral rhonchi, No respiratory distress. HEART: Regular rate and rhythm. No murmur heard. Normal peripheral pulses. ABDOMEN: Soft, nontender, nondistended, normal active bowel sounds. EXTREMITIES: Normal range of motion. No edema. SKIN: Warm, dry, no rash. NEURO: No focal deficits. Alert and oriented x3. PSYCH: Normal mood and affect. Objective Data Vital Signs Vital Signs: Vital Signs - 24 hr 12/02/24 13:45 12/02/24 13:52 12/02/24 15:04 Temperature 98.3 F Pulse Rate 67 68 63 Respiratory Rate 18 18 16 Blood Pressure 129/64 Pulse Oximetry 97 Oxygen Delivery Fraction of Inspired Oxygen 12/02/24 20:00 12/02/24 20:37 12/02/24 20:40 Temperature Pulse Rate 74 Respiratory Rate 18 Blood Pressure Pulse Oximetry 93 Oxygen Delivery Room Air Room Air Fraction of Inspired Oxygen 21 12/02/24 20:45 12/02/24 20:47 12/03/24 04:59 Temperature 99.3 F 98.1 F Pulse Rate 71 90 103 H Respiratory Rate 18 18 20 Blood Pressure 112/65 116/87 Pulse Oximetry 99 96 Oxygen Delivery Fraction of Inspired Oxygen 12/03/24 07:23 12/03/24 07:23 12/03/24 07:33 Temperature Pulse Rate 90 90 84 Respiratory Rate 18 18 18 Blood Pressure Pulse Oximetry 96 Oxygen Delivery Room Air Fraction of Inspired Oxygen Intake/Output Intake/Output: Intake & Output 11/30/24 12/01/24 12/02/24 12/03/24 23:59 23:59 23:59 23:59 Intake Total 410 740 840 Balance 410 740 840 Meds/Results Medications: Active Medications Generic Name Dose Route Start Last Admin Trade Name Freq PRN Reason Stop Dose Admin Acetaminophen 650 mg 12/01/24 04:20 12/01/24 09:34 Acetaminophen 325 Mg Tablet PO 650 mg Q4H PRN Administration Mild Pain (1-3) or Fever Acetaminophen 500 mg 12/01/24 15:05 Acetaminophen 500 Mg Tablet PO BID PRN Pain (Scale Score 4-6) Albuterol 2 puff 12/01/24 14:47 Albuterol Sulfate (*Sp) Aerosol 1 Puff INHALATION QID PRN shortness of breath or wheezing Albuterol/Ipratropium 3 ml 12/01/24 08:00 12/03/24 07:25 Ipratropium 0.5 Mg/Albuterol Sulfate 2.5 Mg Ampul.Neb 3 Ml INHALATION 3 ml Q6HRT TANYA Administration Dorzolamide/Timolol 1 drop 12/01/24 17:00 12/03/24 10:14 Dorzolamide/Timolol Ophth Sherrell 10 Ml Bottle EACH EYE 1 drop BID TANYA Administration Ergocalciferol 50,000 units 12/04/24 09:00 Ergocalciferol 50,000 Units Capsule BY MOUTH Mo@0900 TANYA Ceftriaxone Sodium 1 gm in 50 mls @ 100 mls/hr 12/02/24 05:00 12/03/24 05:19 Rocephin 1 Gm/Ns 50 Ml IVPB 100 mls/hr Q24H TANYA Administration Azithromycin 500 mg in 250 mls @ 250 mls/hr 12/02/24 06:00 12/03/24 05:49 Zithromax IVPB 125 mls/hr Q24H TANYA Administration Latanoprost 1 drop 12/01/24 18:00 12/02/24 18:29 Latanoprost 0.005% Op Soln 2.5 Ml Btl EACH EYE 1 drop QPM TANYA Administration Losartan Potassium 50 mg 12/02/24 09:00 12/03/24 10:14 Losartan Potassium 50 Mg Tablet PO 50 mg DAILY TANYA Administration Miscellaneous Information 1 each 12/02/24 00:01 Percocet Ordered As Tid Scheduled. Ok To Leave Scheduled Or Make The Order Tid Prn Pain R XX 01/01/25 00:00 CLARIFY TANYA Ondansetron HCl 4 mg 12/01/24 17:43 12/02/24 18:44 Ondansetron Inj 4 Mg/2 Ml Vial IV PUSH 4 mg Q6H PRN Administration Nausea And Vomiting Oseltamivir Phosphate 30 mg 12/01/24 09:00 12/03/24 10:14 Oseltamivir Phosphate 30 Mg Capsule PO 12/06/24 08:59 30 mg Q12HR TANYA Administration Oxycodone/Acetaminophen 1 tab 12/01/24 17:00 12/03/24 10:18 Oxycodone/Acetaminophen (*Crx) 10-325 Mg Tablet PO Not Given TID [facility] Pravastatin Sodium 40 mg 12/01/24 21:00 12/02/24 20:28 Pravastatin Sodium 20 Mg Tablet PO 40 mg HS TANYA Administration Rivaroxaban 20 mg 12/01/24 17:00 12/02/24 18:26 Rivaroxaban 20 Mg Tablet PO 20 mg DAILY@1700 [facility] Administration Trazodone HCl 50 mg 12/01/24 14:47 Trazodone Hcl 50 Mg Tablet PO QHS PRN insomnia Radiology Results: ITS Impressions Chest X-Ray 11/30/24 20:24 IMPRESSION: Pulmonary opacities likely represent chronic respiratory bronchiolitis and/or atypical infection. Overlying acute infection not excluded. Labs Labs: Laboratory Results - last 24 hr 12/03/24 06:19 WBC 13.7 H RBC 3.37 L Hgb 9.6 L Hct 30.2 L MCV 89.6 MCH 28.5 MCHC 31.8 L RDW 13.6 Plt Count 393 H MPV 9.6 Immature Gran % (Auto) 0.4 Neut % (Auto) 67.4 Lymph % (Auto) 20.3 [place] % (Auto) 10.3 H Eos % (Auto) 1.1 Baso % (Auto) 0.5 Lymph # (Auto) 2.77 [place] # (Auto) 1.4 H Eos # (Auto) 0.2 Baso # (Auto) 0.1 Abs Immat Gran (auto) 0.06 H Absolute Neuts (auto) 9.2 H Absolute Nucleated RBC 0.000 Nucleated RBC % 0.0 Sodium 138 Potassium 4.1 Chloride 108 H Carbon Dioxide 26 Anion Gap 4 BUN 14 Creatinine 0.53 L Estim Creat Clear Calc Not Reportable Estimated GFR > 60 Glucose 97 Calcium 8.8 Magnesium 1.8 Total Bilirubin 0.4 AST 18 ALT 10 Alkaline Phosphatase 63 Total Protein 6.0 L Albumin 3.2 L
[2024-12-03] MEDS: guaiFENesin 12 HR 600 MG TABCR PO ×2 (12:51→20:31)
[2024-12-03] MEDS: oxyCODONE/ACETAMINOPHEN (*CRX) 10-325 MG TABLET 1 TAB PO (12:51)
[2024-12-03] MEDS: RIVAROXABAN 20 MG TABLET PO (18:24)
--- NOTE | 2024-12-03 18:27 | PC.NURSE ---
RN attempted to administer oxycodone and pt refused and states that she didn't want it right now that she might get it later.
[2024-12-03] MEDS: LATANOPROST 0.005% OP SOLN 2.5 ML BTL 1 DROP EACH EYE (18:29)
[2024-12-03] MEDS: PRAVASTATIN SODIUM 20 MG TABLET 40 MG PO (20:31)
[2024-12-04] MEDS: AZITHROMYCIN 500 MG/NS 250 ML 500 MG/250 ML BAG 125 MG IVPB (04:43)
[2024-12-04 05:08] VITALS: BP 118/63; PULSE 81; RESP 14; TEMP 37.2; O2SAT 93
[2024-12-04 08:51] LABS: Hematocrit 31.9 % (37.0-47.0); Hemoglobin 9.8 g/dL (12.0-15.0); Mean Corpuscular HGB Conc 30.7 g/dl (32-36); Mean Corpuscular Hemoglobin 27.5 pg (26-34); Mean Corpuscular Volume 89.4 fl (80-100); Mean Platelet Volume 9.2 fl (7.4-10.4); Platelet Count Result 412 k/mm3 (150-375); Red Blood Count 3.57 M/mm3 (4.2-5.4); Red Cell Distribution Width 13.6 % (11.5-14.5); White Blood Count 12.8 K/mm3 (4.5-10.0)
[2024-12-04 09:03] LABS: Alanine Aminotransferase 13 U/L (6-35); Albumin Level 3.4 g/dL (3.5-5.1); Alkaline Phosphatase 65 U/L (38-126); Anion Gap 3 mmol/L (4-12); Aspartate Amino Transferase 20 U/L (14-36); Bilirubin,Total 0.5 mg/dL (0.2-1.3); Blood Urea Nitrogen 16 mg/dL (7-17); Calcium 8.9 mg/dL (8.4-10.2); Carbon Dioxide 27 mmol/L (22-30); Chloride 107 mmol/L (98-107); Estimated Glomerular Filt Rate > 60; Glucose 91 mg/dL (65-110); Potassium 4.3 mmol/L (3.4-5.0); Sodium 137 mmol/L (137-145)
[2024-12-04 09:18] VITALS: PULSE 70; RESP 24; O2SAT 91
[2024-12-04] MEDS: IPRATROPIUM 0.5 MG/ALBUTEROL SULFATE 2.5 MG AMPUL.NEB 3 ML INHALATION (09:18)
[2024-12-04 09:24] VITALS: PULSE 75; RESP 24
[2024-12-04] MEDS: LOSARTAN POTASSIUM 50 MG TABLET PO (09:34)
[2024-12-04] MEDS: ERGOCALCIFEROL 50,000 UNITS CAPSULE 50000 UNITS BY MOUTH (09:34)
[2024-12-04] MEDS: OSELTAMIVIR PHOSPHATE 30 MG CAPSULE PO (09:34)
[2024-12-04] MEDS: oxyCODONE/ACETAMINOPHEN (*CRX) 10-325 MG TABLET 1 TAB PO ×2 (09:34→12:14)
[2024-12-04] MEDS: guaiFENesin 12 HR 600 MG TABCR PO (09:34)
[2024-12-04] MEDS: DORZOLAMIDE/TIMOLOL OPHTH SOL 10 ML BOTTLE 1 DROP EACH EYE ×2 (09:35→17:06)
--- NOTE | 2024-12-04 11:17 | P.PNIM_ITS ---
Progress Note: A&P Assessment and Plan (1) Hypertension: Code(s): I10 - Essential (primary) hypertension Status: Acute (2) CAD (coronary artery disease): Code(s): I25.10 - Atherosclerotic heart disease of [place] coronary artery without angina pectoris Status: Acute (3) Hyperlipidemia: Code(s): E78.5 - Hyperlipidemia, unspecified Status: Acute (4) Influenza A: Code(s): J10.1 - Influenza due to other identified influenza virus with other respiratory manifestations Status: Acute (5) Pneumonia: Qualifiers: Laterality: right Lung location: unspecified part of lung Pneumonia type: due to unspecified organism Qualified Code(s): J18.9 - Pneumonia, unspecified organism Code(s): J18.9 - Pneumonia, unspecified organism Status: Acute (6) COPD (chronic obstructive pulmonary disease): Code(s): J44.9 - Chronic obstructive pulmonary disease, unspecified Status: Acute Plan Patient a 84 year old female who presents emergency department with chief complaint of shortness of breath cough generalized body aches and elevated blood sugar. Patient states that around [place] she started feeling weak and was seen in her primary doctor's office today and there was concern for pneumonia. The patient was sent to the emergency department for evaluation. urinalysis was negative for infection. Influenza a is positive patient leukocytosis 18,000, chest suggest pneumonia Community-acquired pneumonia, superimposed with influenza a infection Laboratory studies showed elevated white cell count 18,000. Lactate normal troponin negative procalcitonin 0.1 Chest x-ray interstitial infiltrates concerning for possible infectious process. Influenza RSV say COVID swab was done and was positive for influenza A. Patient was started on Tamiflu and Rocephin azithromycin. Admitted for further treatment. Slowly improving. Continue current treatment with IV antibiotics. Leukocytosis improving. Anemia: No signs of bleeding. Continue to monitor and remains stable. Generalized weakness, ordered PT OT Changed to Augmentin p.o., continue Tamiflu Hypokalemia replace and monitor Corrected DVT prophylaxis Xarelto Hypertension Hyperlipidemia Coronary artery disease status post stents Denies chest pain stable Proximal atrial fibrillation History of syncope Chronic back pain with spinal stenosis Code status full code Subjective Date/time seen: 12/04/24 11:17 Interval history: Patient is afebrile, blood pressure stable, pulse ox 91-20 93 on room air, lab showed leukocytosis 12,800, continue to improve Patient denies cough or shortness breath. Patient also denies chest pain abdomen pain nausea vomiting diarrhea Exam Narrative: GENERAL: Pleasant, in no acute distress. Well-nourished. - EYES: EOMI. Anicteric. - HENT: Moist mucous membranes. - LUNGS: Clear to auscultation bilateral ly, no wheezing, rhonchi, or rales. - CARDIOVASCULAR: Regular rate and rhyth m. No murmur. No JVD. - ABDOMEN: Soft, non-tender and non-dist ended. No palpable masses. - EXTREMITIES: No edema. Peripheral puls es 2+. Non-tender. - NEUROLOGIC: No focal neurological defi cits. CN II-XII grossly intact. - PSYCHIATRIC: Awake, Alert and oriented x 3. Appropriate mood and affect. - SKIN: No rashes or lesions. Warm. - LYMPH: No cervical lymphadenopathy. Objective Data Vital Signs Vital Signs: Vital Signs - 24 hr 12/03/24 13:00 12/03/24 13:10 12/03/24 14:20 Temperature 98.7 F Pulse Rate 87 86 96 Respiratory Rate 18 18 16 Blood Pressure 127/81 Pulse Oximetry 95 Oxygen Delivery Fraction of Inspired Oxygen 12/03/24 19:59 12/03/24 19:59 12/03/24 20:00 Temperature Pulse Rate 59 L Respiratory Rate 18 Blood Pressure Pulse Oximetry 97 Oxygen Delivery Room Air Room Air Fraction of Inspired Oxygen 12/03/24 20:09 12/03/24 20:51 12/04/24 05:08 Temperature 98.6 F 98.9 F Pulse Rate 62 80 81 Respiratory Rate 18 14 14 Blood Pressure 101/68 118/63 Pulse Oximetry 95 93 Oxygen Delivery Fraction of Inspired Oxygen 12/04/24 09:18 12/04/24 09:18 12/04/24 09:24 Temperature Pulse Rate 70 75 Respiratory Rate 24 H 24 H Blood Pressure Pulse Oximetry 91 Oxygen Delivery Room Air Fraction of Inspired Oxygen 21 12/04/24 09:35 Temperature Pulse Rate Respiratory Rate Blood Pressure Pulse Oximetry Oxygen Delivery Room Air Fraction of Inspired Oxygen Intake/Output Intake/Output: Intake & Output 12/01/24 12/02/24 12/03/24 12/04/24 23:59 23:59 23:59 23:59 Intake Total 028 385 3448 175 Balance 482 948 9378 175 Meds/Results Medications: Active Medications Generic Name Dose Route Start Last Admin Trade Name Freq PRN Reason Stop Dose Admin Acetaminophen 650 mg 12/01/24 04:20 12/01/24 09:34 Acetaminophen 325 Mg Tablet PO 650 mg Q4H PRN Administration Mild Pain (1-3) or Fever Acetaminophen 500 mg 12/01/24 15:05 Acetaminophen 500 Mg Tablet PO BID PRN Pain (Scale Score 4-6) Albuterol 2 puff 12/01/24 14:47 Albuterol Sulfate (*Sp) Aerosol 1 Puff INHALATION QID PRN shortness of breath or wheezing Albuterol/Ipratropium 3 ml 12/01/24 08:00 12/04/24 09:18 Ipratropium 0.5 Mg/Albuterol Sulfate 2.5 Mg Ampul.Neb 3 Ml INHALATION 3 ml Q6HRT TANYA Administration Dorzolamide/Timolol 1 drop 12/01/24 17:00 12/04/24 09:35 Dorzolamide/Timolol Ophth Sherrell 10 Ml Bottle EACH EYE 1 drop BID TANYA Administration Ergocalciferol 50,000 units 12/04/24 09:00 12/04/24 09:34 Ergocalciferol 50,000 Units Capsule BY MOUTH 50,000 units Mo@0900 TANYA Administration Guaifenesin 600 mg 12/03/24 12:30 12/04/24 09:34 Guaifenesin 12 Hr 600 Mg Tabcr PO 600 mg Q12HR TANYA Administration Ceftriaxone Sodium 1 gm in 50 mls @ 100 mls/hr 12/02/24 05:00 12/04/24 04:02 Rocephin 1 Gm/Ns 50 Ml IVPB 100 mls/hr Q24H TANYA Administration Azithromycin 500 mg in 250 mls @ 250 mls/hr 12/02/24 06:00 12/04/24 04:43 Zithromax IVPB 125 mls/hr Q24H TANYA Administration Latanoprost 1 drop 12/01/24 18:00 12/03/24 18:29 Latanoprost 0.005% Op Soln 2.5 Ml Btl EACH EYE 1 drop QPM TAYNA Administration Losartan Potassium 50 mg 12/02/24 09:00 12/04/24 09:34 Losartan Potassium 50 Mg Tablet PO 50 mg DAILY TANYA Administration Miscellaneous Information 1 each 12/02/24 00:01 Percocet Ordered As Tid Scheduled. Ok To Leave Scheduled Or Make The Order Tid Prn Pain R XX 01/01/25 00:00 [facility] Ondansetron HCl 4 mg 12/01/24 17:43 12/02/24 18:44 Ondansetron Inj 4 Mg/2 Ml Vial IV PUSH 4 mg Q6H PRN Administration Nausea And Vomiting Oseltamivir Phosphate 30 mg 12/01/24 09:00 12/04/24 09:34 Oseltamivir Phosphate 30 Mg Capsule PO 12/06/24 08:59 30 mg Q12HR TANYA Administration Oxycodone/Acetaminophen 1 tab 12/01/24 17:00 12/04/24 09:34 Oxycodone/Acetaminophen (*Crx) 10-325 Mg Tablet PO 1 tab TID TANYA Administration Pravastatin Sodium 40 mg 12/01/24 21:00 12/03/24 20:31 Pravastatin Sodium 20 Mg Tablet PO 40 mg HS [facility] Administration Rivaroxaban 20 mg 12/01/24 17:00 12/03/24 18:24 Rivaroxaban 20 Mg Tablet PO 20 mg DAILY@1700 [facility] Administration Trazodone HCl 50 mg 12/01/24 14:47 Trazodone Hcl 50 Mg Tablet PO QHS PRN insomnia Radiology Results: ITS Impressions Chest X-Ray 11/30/24 20:24 IMPRESSION: Pulmonary opacities likely represent chronic respiratory bronchiolitis and/or atypical infection. Overlying acute infection not excluded. Labs Labs: Laboratory Results - last 24 hr 12/04/24 08:37 WBC 12.8 H RBC 3.57 L Hgb 9.8 L Hct 31.9 L MCV 89.4 MCH 27.5 MCHC 30.7 L RDW 13.6 Plt Count 412 H MPV 9.2 Sodium 137 Potassium 4.3 Chloride 107 Carbon Dioxide 27 Anion Gap 3 L BUN 16 Creatinine 0.60 L Estim Creat Clear Calc Not Reportable Estimated GFR > 60 Glucose 91 Calcium 8.9 Total Bilirubin 0.5 AST 20 ALT 13 Alkaline Phosphatase 65 Total Protein 7.0 Albumin 3.4 L
[2024-12-04] MEDS: ONDANSETRON INJ 4 MG/2 ML VIAL IV PUSH (13:55)
--- NOTE | 2024-12-04 14:23 | P.DS_ITS ---
DS: Admitting Diagnosis Discharge Date 12/04/24 Admitting Diagnosis (1) Hypertension: Code(s): I10 - Essential (primary) hypertension Status: Acute (2) CAD (coronary artery disease): Code(s): I25.10 - Atherosclerotic heart disease of [place] coronary artery without angina pectoris Status: Acute (3) Hyperlipidemia: Code(s): E78.5 - Hyperlipidemia, unspecified Status: Acute (4) Influenza A: Code(s): J10.1 - Influenza due to other identified influenza virus with other respiratory manifestations Status: Acute (5) Pneumonia: Qualifiers: Laterality: right Lung location: unspecified part of lung Pneumonia type: due to unspecified organism Qualified Code(s): J18.9 - Pneumonia, unspecified organism Code(s): J18.9 - Pneumonia, unspecified organism Status: Acute (6) COPD (chronic obstructive pulmonary disease): Code(s): J44.9 - Chronic obstructive pulmonary disease, unspecified Status: Acute DS: Discharge Diagnosis Discharge Diagnosis (1) Hypertension: Code(s): I10 - Essential (primary) hypertension Status: Acute (2) CAD (coronary artery disease): Code(s): I25.10 - Atherosclerotic heart disease of [place] coronary artery without angina pectoris Status: Acute (3) Hyperlipidemia: Code(s): E78.5 - Hyperlipidemia, unspecified Status: Acute (4) Influenza A: Code(s): J10.1 - Influenza due to other identified influenza virus with other respiratory manifestations Status: Acute (5) Pneumonia: Qualifiers: Laterality: right Lung location: unspecified part of lung Pneumonia type: due to unspecified organism Qualified Code(s): J18.9 - Pneumonia, unspecified organism Code(s): J18.9 - Pneumonia, unspecified organism Status: Acute (6) COPD (chronic obstructive pulmonary disease): Code(s): J44.9 - Chronic obstructive pulmonary disease, unspecified Status: Acute DS: Summary Hospital Course Hospital Course: Patient a 84 year old female who presents emergency department with chief complaint of shortness of breath cough generalized body aches and elevated blood sugar. Patient states that around [place] she started feeling weak and was seen in her primary doctor's office and there was concern for pneumonia. The patient was sent to the emergency department for evaluation. urinalysis was negative for infection. Influenza a is positive patient leukocytosis 18,000, chest suggest pneumonia The following med issues have been addressed during hospitalization Community-acquired pneumonia, superimposed with influenza a infection Laboratory studies showed elevated white cell count 18,000. Lactate normal troponin negative procalcitonin 0.1 Chest x-ray interstitial infiltrates concerning for possible infectious process. Influenza RSV say COVID swab was done and was positive for influenza A. Patient was started on Tamiflu and Bj ephin azithromycin. Admitted for further treatment. Slowly improving. Continue current treatment with IV antibiotics. Leukocytosis improving. Anemia: No signs of bleeding. Continue to monitor and remains stable. Generalized weakness, ordered PT OT Changed to Augmentin p.o., continue Tamiflu Hypokalemia replace and monitor Corrected DVT prophylaxis Xarelto Hypertension Hyperlipidemia Coronary artery disease status post stents Denies chest pain stable Proximal atrial fibrillation History of syncope No syncope during hospitalization new Chronic back pain with spinal stenosis No focal deficit or urinary fecal incontinence Patient discharged home today Time Spent with Patient Time attestation: Total time spent providing and/or coordinating discharge services: Exam Narrative: GENERAL: Pleasant, in no acute distress. Well-nourished. - EYES: EOMI. Anicteric. - HENT: Moist mucous membranes. - LUNGS: Clear to auscultation bilateral ly, no wheezing, rhonchi, or rales. - CARDIOVASCULAR: Regular rate and rhyth m. No murmur. No JVD. - ABDOMEN: Soft, non-tender and non-dist ended. No palpable masses. - EXTREMITIES: No edema. Peripheral puls es 2+. Non-tender. - NEUROLOGIC: No focal neurological defi cits. CN II-XII grossly intact. - PSYCHIATRIC: Awake, Alert and oriented x 3. Appropriate mood and affect. - SKIN: No rashes or lesions. Warm. - LYMPH: No cervical lymphadenopathy. DS: Data Data Completed and Pending Labs on day of discharge: Labs from last 24 hours 12/04/24 08:37 WBC 12.8 H RBC 3.57 L Hgb 9.8 L Hct 31.9 L MCV 89.4 MCH 27.5 MCHC 30.7 L RDW 13.6 Plt Count 412 H MPV 9.2 Sodium 137 Potassium 4.3 Chloride 107 Carbon Dioxide 27 Anion Gap 3 L BUN 16 Creatinine 0.60 L Estim Creat Clear Calc Not Reportable Estimated GFR > 60 Glucose 91 Calcium 8.9 Total Bilirubin 0.5 AST 20 ALT 13 Alkaline Phosphatase 65 Total Protein 7.0 Albumin 3.4 L Preliminary micro results at discharge 12/01/24 02:59 Blood Culture - Preliminary Blood 12/01/24 02:59 Blood Culture - Preliminary Blood Discharge Plan Discharge Attending physician on discharge: Randy Hamm Discharging Clinician: Randy Hamm Anticipated Discharge Date/Time: 12/04/24 14:25 Patient Disposition: Home, Self-Care Activity: as tolerated Diet: as tolerated and regular Patient Instructions: Antibiotic Form Patient Language: Swedish Stand Alone Forms: General Discharge Information Follow-up/Referrals: Roxana Graham APRN [Primary Care Provider] - (see PCP in one week ) Discharge Medications: New oseltamivir [Tamiflu] 30 mg Capsule 30 mg PO Q12HR Qty: 4 0RF amoxicillin-pot clavulanate [Augmentin] 500-125 mg tablet 1 tablet PO Q12H Qty: 6 0RF Continued Xarelto 20 mg tablet 20 mg PO DAILY Rx Instructions: must administer with evening meal Tylenol 500 mg BYMOUTH BID PRN (Reason: Pain (Scale Score 4-6)) Rx Instructions: 500mg PRN albuterol sulfate 90 mcg/actuation HFA aerosol inhaler 2 puff INHALATION QID PRN (Reason: shortness of breath or wheezing) Qty: 8 0RF losartan 50 mg tablet 50 mg PO DAILY pravastatin 40 mg tablet 40 mg PO HS oxycodone-acetaminophen 10-325 mg tablet 1 tablet PO TID dorzolamide-timolol 22.3-6.8 mg/mL drops 1 drp ophthalmic (eye) BID Rx Instructions: 1 drop both eyes twice/daily latanoprost 0.005 % drops 1 drp EACH EYE QPM trazodone 50 mg tablet 50 mg PO QHS PRN (Reason: insomnia) Qty: 90 1RF cholecalciferol (vitamin D3) 1,250 mcg (50,000 unit) capsule See Rx Instructions .ROUTE .COMPLEX Qty: 12 1RF Dose Instruction: TAKE 1 CAPSULE BY MOUTH ONCE WEEKLY ON MONDAYS Rx Instructions: TAKE 1 CAPSULE BY MOUTH ONCE WEEKLY ON MONDAYS Date of admission: 12/01/24 04:20 Primary Care Provider: Roxana Graham Admitting Provider: Darryl Dee V. Attending physician on admission: Darryl Dee V. Condition: Stable
[2024-12-04 14:50] VITALS: PULSE 77; RESP 20; O2SAT 94
[2024-12-04] MEDS: LATANOPROST 0.005% OP SOLN 2.5 ML BTL 1 DROP EACH EYE (17:06)
[2024-12-04] MEDS: RIVAROXABAN 20 MG TABLET PO (17:06)
--- OUTSIDE RECORDS SUMMARY | 2024-12-08 03:46 | XMS_ITS | Encounter Summary ---
Author Organization [facility] Address [address] [place] [address] Care Team Providers Care Computer Programmer Chief Name Role Phone Unavailable Primary Care Provider Unavailabl e Source Comments Please be aware that You and/or your organization are solely responsible for the use, security, privacy, and any decisions made with any information you receive from [employer] ([place] Encounter Details Date Type Department Care Team (Late st Contact Info) Description 06/08/2019 2:02 AM EDT - 06/11/2019 3:09 PM EDT Hospital Encounter CONVERSION DEP (Mapping) [id number] [phone] Social History Tobacco Use Types Packs/Day Years Used Date Smoking Tobacco: Never Assessed Sex and Gender Information Value Date Recorded Sex Assigned at Not on file Gender Identity Not on file Sexual Orientation Not on file documented as of this encounter Plan of Treatment Not on file documented as of this encounter Visit Diagnoses Not on filedocumented in this encounter
--- OUTSIDE RECORDS SUMMARY | 2024-12-08 03:46 | XMS_ITS | Encounter Summary ---
Author Organization [facility] Address [address] [place] [address] Care Team Providers Care Career Law Clerk Name Role Phone Merlin Nunez MD Unavailable [phone] Roxana Graham NP Primary Care Provider [phone] Reason for Visit * Reason Onset Date Comments Loss of Consciousness 10/09/2024 loop recorder 10/09/2024 Encounter Details Date Type Department Care Team (Late st Contact Info) Description 10/09/2024 Telephone [facility] Cardiology [address] [place] [address] Robi Garcia MD [address] [place] [address] Loss of Consciousness; loop recorder Social History Tobacco Use Types Packs/Day Years Used Date Smoking Tobacco: Every Day Cigarettes 0.1 44 Started: 11/22/1980 Smokeless Tobacco: Never Comments Unknown Sex and Gender Information Value Date Recorded Sex Assigned at Not on file Legal Sex Female 7:12 PM DIGITAL ARCHIVIST Gender Identity Not on file Sexual Orientation Not on file documented as of this encounter Miscellaneous Notes * Telephone Encounter - Jemima Cosme RN - 10/20/2024 8:27 AM DIGITAL ARCHIVIST Spoke with pt, reviewed response below from CT. Pt verbalizes understanding. TAL ARCHIVIST * Telephone Encounter - Jemima Cosme RN - 10/18/2024 1:55 PM DIGITAL ARCHIVIST Will forward to CT. TAL ARCHIVIST * Telephone Encounter - Radha Soto - 10/18/2024 1:13 PM CST Pt calling to report BP readings - (Taken a couple of hours after meds) 10/10 - 119/60 HR 58 10/11 - 123/61 HR 83 10/12 - 120/73 HR 93 10/13 - 137/84 HR 92 10/14 - 132/74 HR 72 10/15 - 132/77 HR 82 Contact: TAL ARCHIVIST * Telephone Encounter - Jemima Cosme RN - 10/09/2024 1:09 PM DIGITAL ARCHIVIST Spoke with pt, reviewed response below from CT. Pt verbalizes understanding. Pt states she did hit her head when she fell, pt was not evaluated in the ER. Pt denies any complaints at this time, advised pt to go to ER for evaluation with any changes in mentation, dizziness, headache, blurred vision.Pt verbalizes understanding. Advised pt that if she has a fall and hits her head she should be evaluated in the ER because she is on a blood thinner and could be at risk for brain bleeding if she hits her head. Pt verbalizes understanding and appreciative of return call. Advised pt to call Wednesday with updated bp readings or sooner with any questions or concerns. TAL ARCHIVIST * Telephone Encounter - Marianela Mullen NP - 10/09/2024 1:00 PM DIGITAL ARCHIVIST Please let patient know that her loop recorder did not detect an abnormal heart rhythm, so she probably passed out because her blood pressure dropped from stimulation of the vagus nerve from straining on the toilet, or because her blood pressure didn't adjust quickly enough when she stood up. Tell her to cut her losartan in half, and start checking a daily blood pressure at least an hour after taking it, and report he blood pressure readings to me in a week. Thank you. TAL ARCHIVIST * Telephone Encounter - Li Nguyen, RN - 10/09/2024 12:30 PM CST [employer] [id number] Loop Recorder. Dx; PAF, PSVT, Syncope. DOI 01/19/2024-[facility]. [facility] remote f/u. As of 05/15/24-remote monitoring for alerts. Pt unable to afford the monthly copays from her Insurance. Co. Unscheduled remote d/t patient telephone message regarding syncope episode on 10/08/24. Presenting rhythm-VS, regular 60 bpm. No arrhythmia episodes noted. Pause episode noted on 09/06/24, egm-false d/t undersensed r-waves. [employer] remote f/u 11/27/2024. I contacted and spoke with patient. She stated Wednesday I wasn't feeling very good. I felt like I might pass out. That's the best way I can explain it. I woke up yesterday morning 10/08 between 05:00-05:30 because I had to go to the bathroom. I was sick to my stomach, I went to get off the toilet,and when I stood up I fainted. I was finally able to get myself back to bed. I called my daughter about 06:30 and she came over. She took my BP and it was 109/64 I think that's what she said. That islower than what I normally run. I didn't take my BP medicine yesterday. And today I have to go to the doctor and get injection in my eye. So I can't take my BP medicine until I get home. I had cataract surgery a couple weeks ago. Should I continue taking my same medications? I was just wondering cory showed up on my monitor from yesterday. I informed her I would send this message to office nurse and Marianela Alberts. If anything changes the office will call her to let her know. She verbalized understanding. TAL ARCHIVIST * Telephone Encounter - Awa Gaines MA - 10/09/2024 11:06 AM DIGITAL ARCHIVIST Report scheduled and uploaded to pt's chart for Li to review. TAL ARCHIVIST * Telephone Encounter - Jemima Cosme RN - 10/09/2024 9:19 AM DIGITAL ARCHIVIST Will forward to Lizandro. TAL ARCHIVIST * Telephone Encounter - Ruthann Thakkar - 10/09/2024 9:12 AM CST Patient states that yesterday 10/08 she loss consciousness in the restroom. Requesting a call back from the device RN to see if her monitor picked up anything during that time. Please advise. Thank you. Contact [phone] TAL ARCHIVIST documented in this encounter Plan of Treatment Not on file documented as of this encounter Visit Diagnoses Not on filedocumented in this encounter Care Teams Career Law Clerk Relationship Specialty Start Date End Date Roxana Graham NP [address] [place] [id number] PCP - General Nurse Practitioner 11/30/23 Merlin Nunez MD Consulting Physician Cardiovascular Disease 04/17/20 documented as of this encounter
--- OUTSIDE RECORDS SUMMARY | 2024-12-08 03:46 | XMS_ITS | CONTINUITY OF CARE DOCUMENT ---
Author Name ruchi, ruchi Address Unknown Organization [facility] Address [address] [place] [address] Phone [phone] Care Team Providers Care Para Machine Operator Name Role Phone Richard Brown MD Unavailable [phone] SHADI ZIMMER Unavailable [phone] SHADI ZIMMER Unavailable [phone] PROBLEMS Condition Status Date Provider Notes PVD active Richard Brown MD Myocardial infarction active Richard Aparicio Shortness of breath active Merlin Nunez MD CAD s/p stents to RCA patent on cath 05/11 , Jailed [address], incr LVEDP active Richard Brown MD Chest pain active Steven Duval MD Arm pain, left active Steven Duval MD HTN essential active Steven Duval MD Hyperlipidemia active Steven Duval MD COPD active Steven Duval MD Fatigue active Richard Brown MD Family History of Hypertension: completed - Richard Brown MD Syncope active Gunnar Stanford Dizziness active Gunnar Stanford ENCOUNTERS Date Type Provider Location Encounter Diag nosis - In-person encounter Office Visit Richard Brown MD [facility] - In-person encounter Office Visit Richard Brown MD [facility] Family History of Hypertension: - In-person encounter Office Visit Richard Brown MD [facility] SyncopeDizziness - In-person encounter Office Visit Richard Brown MD [facility] Fatigue - In-person encounter Office Visit Merlin Nunez MD [place] - In-person encounter Office Visit Steven Duval MD [facility] Office CAD s/p stents to RCA patent on cath 05/11 , [address], incr LVEDPChest painArm pain, leftHTN essentialHyperlipidemiaCOPD - In-person encounter Office Visit Richard Brown MD [facility] VITAL SIGNS Date Observation Value Provider Body Mass Index (Ratio) 25.78 kg/m2 Patel Brown MD blood pressure, diastolic 82 mm[Hg] Cy [facility] blood pressure, systolic 144 mm[Hg] Lizzeth [facility] pulse rate 75 /min [facility] oxygen saturation, oximetry 96 % [facility] respiratory rate E&M 16 /min [facility] blood pressure, cuff size regular Cy [facility] weight E&M 132 [lb_av] [facility] height E&M 60 [in_i] [facility] Body Mass Index (Ratio) 29.96 kg/m2 Patel Brown MD blood pressure, diastolic 82 mm[Hg] Ishan Wiggins blood pressure, systolic 136 mm[Hg] Piper Wiggins respiratory rate E&M 18 /min Kali Wiggins weight E&M 153.4 [lb_av] Sherri chandler height E&M 60 [in_i] Sherri newby Body Mass Index (Ratio) 30.85 kg/m2 Patel Brown MD blood pressure, diastolic 80 mm[Hg] To yanni Woods blood pressure, systolic 153 mm[Hg] Ton sha Woods oxygen saturation, oximetry 98 % Tonsha Woods respiratory rate E&M 16 /min Tonsha Woods pulse rate 86 /min Tonsha Woods weight E&M 158 [lb_av] Tonsha Woods height E&M 60 [in_i] Tonsha Woods Body Mass Index (Ratio) 30.85 kg/m2 Patel Brown MD blood pressure, diastolic 81 mm[Hg] Cy rizwan Joseph blood pressure, systolic 134 mm[Hg] Lizzeth dylan Joseph blood pressure, cuff size regular Cy ntlinnea Joseph weight E&M 158 [lb_av] Carmenzadylan Hookbel l height E&M 60 [in_i] Carmenza Campbel l pulse rate 69 /min Carmenza Campbel l respiratory rate E&M 18 /min Carmenzadylan Joseph oxygen saturation, oximetry 97 % Carmenza Joseph Body Mass Index (Ratio) 31.24 kg/m2 Prabhakar Nunez MD blood pressure, diastolic 72 mm[Hg] To ha Woods blood pressure, systolic 134 mm[Hg] Ton sha Woods pulse rate 55 /min Tonsha Woods oxygen saturation, oximetry 97 % Tonsha Woods respiratory rate E&M 16 /min Tonsha Woods weight E&M 160 [lb_av] Tonsha Woods height E&M 60 [in_i] Tonsha Woods temperature site temporal María Elena Tank sley temperature E&M 97.5 [degF] María Elena Tanks billy Body Mass Index (Ratio) 31.83 kg/m2 Hunter Duval MD blood pressure, cuff size regular Kr isjae Harris blood pressure, diastolic 70 mm[Hg] Kr isty Steven blood pressure, systolic 150 mm[Hg] Jb Harris blood pressure, resting Yes Cristian Harris oxygen saturation, oximetry 99 % Kristie Harris pulse rate 63 /min Kristie Harris respiratory rate E&M 18 /min Kristie Harris height E&M 60 [in_i] Kristie Harris weight E&M 163 [lb_av] Kristie Downsby ALLERGIES Allergy Name Onset Date Reaction Criticality Status SULFA Low Criticality active HYDROMORPHONE Low Criticality active MORPHINE Low Criticality active CODEINE Low Criticality active HISTORY OF MEDICATION USE Medication Status Instructions Dates Provider Indications Com ments losartan 50 mg tablet active TAKE 1 TABLET BY MOUTH EVERY DAY Sherri Wiggins clopidogrel 75 mg tablet active Take 1 tablet by mouth once a day Elvira Boyle oxycodone-acetam inophen 10-325 mg tablet active tablet by mouth Marcus White #90, 30 days supply, Prescribed by EDNA SANTANA, Filled 06/05/2020 ISOSORBIDE MONONITRATE ER 30 MG ORAL TABLET EXTENDED RELEASE 24 HOUR completed one tab. daily - Gunnar Stanfrod Nitrostat 0.4 mg tablet, sublingual active 1 tablet under tongue every two hours as needed Merlin Nunez MD LASIX 20 MG ORAL TABLET completed ONE TABLET DAILY - Gunnar Stanford Plavix 75 mg tablet active 1 tablet by mouth once a day Merlin Nunez MD BRILINTA 90 MG ORAL TABLET completed take one tablet by mouth twice daily - Merlin Nunez MD losartan 50 mg tablet completed Take one tablet daily - Tia Michael gabapentin 600 mg tablet active 1 tablet by mouth three times a day Sherri Wiggins pravastatin 40 mg tablet active 1 tablet by mouth once a day Marcus White Adult Aspirin Regimen 81 mg tablet,delayed release (DR/EC) active Take 1 tablet by mouth once a day Kristie Harris acetaminophen 325 mg tablet active Take 2 tablet by mouth every four hours as needed Kristie Harris buspirone 10 mg tablet active Take 1 tablet by mouth twice a day Kristie Harris #60, 30 days supply, Prescribed by SHADI ZAMUDIO, Filled 02/06/2020 albuterol sulfate 90 mcg/actuation HFA aerosol inhaler active Inhale 2 puff four times a day Kristie Harris #25.5, 90 days supply, Prescribed by SHADI ZAMUDIO, Filled 02/15/2020 SOCIAL HISTORY Date Observation Value Provider social history E&M S moking History: Carrie manuel is a former smoker. Richard Brown MD social history reviewed E&M revi ewed - no changes required Richard Brown MD smoking status Former smoker Carmenza myrick social history E&M S moking History: Carrie manuel is a former smoker. Marcus White social history reviewed E&M revi ewed - no changes required Marcus White smoking status Former smoker Sherri Parkinson suze smoking status Former smoker Gunnar Ray ahmadi social history E&M S moking History: Carrie manuel is a former smoker. Gunnar Stanford social history reviewed E&M revi ewed - no changes required Gunnar Stanford number of grandchildren Richard Stanford social history E&M S moking History: Carrie manuel is a former smoker. Marcus White social history reviewed E&M revi ewed - no changes required Marcus White smoking status Former smoker Carmenza Monster myrick number of grandchildren Merlin Nunez MD social history E&M S moking History: Carrie manuel is a former smoker. Merlin Nunez MD social history reviewed E&M revi ewed - no changes required Merlin Nunez MD smoking status Former smoker Clarissa Woods social history E&M S moking History: Carrie manuel is a former smoker. Steven Duval MD social history reviewed E&M revi ewed - no changes required Steven Duval MD smoking status Former smoker Steven Duval MD number of grandchildren Steven Duval MD U katerine Duval MD FUNCTIONAL STATUS Date Observation Value Provider HRA, CV Assess/Plan, Angina (inactive) Management Plan continue current therapy Marcus White HRA, CV Assess/Plan, Angina (inactive) Management Plan continue current therapy Gunnar Stanford HRA, CV Assess/Plan, Angina (inactive) Management Plan continue current therapy Marcus White HRA, CV Assess/Plan, Angina (inactive) Management Plan continue current therapy, antianginal therapy Merlin Nunez MD FAMILY HISTORY Family Member Condition Mother Family History of Hy pertension: Father Family History of Di abetes: INSURANCE PROVIDERS Payer name Policy type / Coverage type [place] red democrat ID UHC MEDICARE COMPLETE HMO Other [id number] ADVANCE DIRECTIVES Name Date DISCUSSED - NO DECISION MADE TREATMENT PLAN Date Name Performer Cardiology follow up Richard mitchell MD Cardiology follow up Richard mitchell MD Cardiology follow up Richard mitchell MD Cardiology follow up Richard mitchell MD Cardiology follow up Richard mitchell MD Cardiology Marcus White Cardiology Marcus White Cardiology Marcus White Cardiology Marcus White Cardiology Marcus White Cardiology:Had myalg ias on Atorvastatin. Feels better since stopping Atorvastatin. Will try Pravastatin 40 mg once daily. Her updated medication list for this problem includes: Pravastatin Sodium 40 Mg Oral Tablet (Pravastatin sodium) ..... One tab. daily Gunnar Stanford Cardiology:BP is jody vated in the office today, has been withholding doses of BP meds on her own if she feels it is too low. Has not taken BP meds today. S he is to check blood pressures at home morning, afternoon, and night on a daily basis for 2 weeks. BP today: 153/80 P rior BP: 134/81 (06/11/2020) The following medications were removed from the medication list: Lasix 20 Mg Oral Tablet (Furosemide) ..... One tablet daily Her updated medication list for this problem includes: Losartan Potassium 50 Mg Oral Tablet (Losartan potassium) ..... Take one tablet daily Adult Aspirin Regimen 81 Mg Oral Tablet Delayed Release (Aspirin) ..... Take one tablet by mouth once daily Gunnar Stanford Cardiology Gunnar Stanford Cardiology Gunnar Stanford Cardiology Gunnar Stanford Cardiology Gunnar Stanford Cardiology:Check carotid US and housing coordinator. Gunnar Stanford Cardiology follow up Marcus White Cardiology follow up Marcus White Cardiology follow up Marcus White Cardiology follow up Marcus White Cardiology follow up Marcus White Cardiology follow up Marcus White Cardiology follow up Marcus White Cardiology:SODIUM RESTRICTION DI SCUSSED. Merlin Nunez MD Cardiology:STOPPED SMOKING Blessing Nunez MD Cardiology:ORTHOPEDIC WORKUP Jeronimo Nunez MD Cardiology: s /p RCA stenting on 04/15/20 in the setting of an RI. She is currently having symptoms of L arm pain. Also had symptoms of chest pain and diaphoresis last night. Discussed with pt and her daughter the options of doing a stress test or a repeat heart catheterization. Will arrange for repeat cardiac cath with Dr. uNnez. . PTCA stenting of high-grade 100% occlusion JARETT 0 flow PDA reduced to 0% residual with implantation w ith 3 mm x 18 mm Xience drug-eluting stent PTCA stenting of high-grade 100% occluded proximal RCA JARETT 0 flow reduced to 0% residual with i mplantation with 3.5 mm x 38 mm Xience drug-eluting stent HAD REPEAT CATH DONE SHORTLY THEREAFTER WITH RECURRENT SHOULDER PAIN DEMONSTRATING 1. Widely patent stents in the RCA. 2. Jailed posterior lateral branch, which is amenable only for medical therapy, would not jeopardize the r esults of the stent result into the posterior descending artery to attempt any revascularization on the p osterior lateral branch. She is a candidate for medical therapy with nitrates and beta blockade if n ecessay for that location or even considering Ranexa. 3 . Mild systolic hypertension. 4 . Elevated left ventricular end-diastolic pressure. 5 . Preserved LV function. 6 . 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 The patient should have workup done for left arm discomfort. T here may be arthritic issues or nerve compression or cervical spine issues, which may be causing her l eft arm discomfort. Merlin Nunez MD Cardiology:s/p RCA s tenting on 04/15/[address] Nunez in the setting of an RI. She is currently having symptoms of L arm pain. Also had symptoms of chest pain and diaphoresis last night. Discussed with pt and her daughter the options of doing a stress test or a repeat heart catheterization. Will arrange for repeat cardiac cath with Dr. Nunez. Steven Duval MD Cardiology: B P today: 150/70 Her updated medication list for this problem includes: Losartan Potassium-hctz 50-12.5 Mg Oral Tablet (Losartan potassium-hctz) ..... Take one tablet by mouth twice daily Adult Aspirin Regimen 81 Mg Oral Tablet Delayed Release (Aspirin) ..... Take one tablet by mouth once daily Steven Duval MD Cardiology: H er updated medication list for this problem includes: Atorvastatin Calcium 40 Mg Oral Tablet (Atorvastatin calcium) ..... Take one tablet by mouth once daily Steven Duval MD Cardiology:As above. Steven wesley MD Cardiology:As above. Steven wesley MD Date Name Holter Monitor 48 hr Carotid Duplex Bilat eral Complete Echo CT Upper Extremity w ithout contrast CT Cervical Spine wi thout contrast Venous Doppler Bilat eral LE - Reflux B TYPE NATRIURETIC P EPTIDE (BNP) CBC (INCLUDES DIFF/P LT) COMPREHENSIVE METABO LIC PANEL, W/EGFR Cardiac Cath - Left - GC HISTORY OF PROCEDURES Procedure Date Procedure Name Provider Procedure Notes S tatus EKG Steven Duval MD completed
--- OUTSIDE RECORDS SUMMARY | 2024-12-08 03:46 | XMS_ITS | Clinical Summary ---
Author Organization [facility] Address [address] [place] [address] Care Team Providers Care Motorboat Mechanic Inboard Name Role Phone Unavailable Primary Care Provider Unavailabl e Social History Tobacco Use Types Packs/Day Years Used Date Smoking Tobacco: Never Assessed Sex and Gender Information Value Date Recorded Sex Assigned at Not on file Gender Identity Not on file Sexual Orientation Not on file Plan of Treatment Not on file
--- OUTSIDE RECORDS SUMMARY | 2024-12-08 03:46 | XMS_ITS | Clinical Summary ---
Author Organization [facility] Address [address] [place] [address] Care Team Providers Care Carpentry Professional Name Role Phone Merlin Nunez MD Unavailable [phone] Roxana Graham NP Primary Care Provider [phone] Allergies Active Allergy Reactions Criticality Noted Date Comments Codeine Itching Low 07/05/2019 Hydromorphone Stomach upset Low 07/05/2019 Morphine Stomach upset Low 07/05/2019 Sulfa (Sulfonamide Antibiotics) Stomach upset Low 0 02/04/2018 Medications albuterol HFA (PROVENTIL HFA,VENTOLIN HFA,PROAIR HFA) 90 mcg/actuation inhaler Take 2 puffs by mouth 4 (four) times a day Active acetaminophen (TYLENOL) 325 mg tabletIndications :Fever,Pain Take 2 tablets (650 mg total) by mouth every 4 (four) hours as needed for pain 30 tablet 0 Active escitalopram (LEXAPRO) 20 mg tablet TAKE 1 TABLET EVERY DAY BY ORAL ROUTE FOR 30 DAYS. 1 Active naloxone HCl (NARCAN NASL) Administer into affected nostril(s) Active omeprazole (PriLOSEC) 40 mg capsule Take 1 capsule (40 mg total) by mouth daily Active oxyCODONE-acetami nophen (PERCOCET) 10-325 mg per tabletIndications :Pain Take 1 tablet by mouth every 4 (four) hours as needed Active ergocalciferol (VITAMIN D) 50,000 unit capsule TAKE 1 CAPSULE BY MOUTH ONCE WEEKLY X12 WEEKS THEN RECHECK BLOOD LEVELS 3 Active dorzolamide-timol oL (COSOPT) 22.3-6.8 mg/mL ophthalmic solution Administer 1 drop into both eyes 2 (two) times a day 3 Active ipratropium (ATROVENT) 21 mcg (0.03 %) nasal spray Administer 2 sprays into each nostril 2 (two) times a day 3 Active nitroglycerin (NITROSTAT) 0.4 mg SL tabletIndications :Coronary artery disease of [place] artery of [place] heart with stable angina pectoris (HCC) Place 1 tablet (0.4 mg total) under the tongue every 5 (five) minutes as needed for chest pain 25 tablet 3 4 Active losartan (COZAAR) 50 mg tablet TAKE 1 TABLET BY MOUTH EVERY DAY 90 tablet 2 4 Active latanoprost (XALATAN) 0.005 % ophthalmic solution 4 Active pravastatin (PRAVACHOL) 40 mg tabletIndications :Coronary artery disease involving [place] coronary artery of [place] heart without angina pectoris TAKE 1 TABLET BY MOUTH EVERY DAY 90 tablet 2 4 Active rivaroxaban (Xarelto) 20 mg tabletIndications :atrial fibrillation Take 1 tablet (20 mg total) by mouth daily 30 tablet 6 4 Active Active Problems Problem Noted Date Diagnosed Date Status post placement of implantable loop record er 01/20/2024 Overview (01/20/2024): Medtronic LNQ22 Loop Recorder. Dx; PAF, PSVT, Syncope. DOI 01/19/2024-[facility] remote f/u. Subacute cough 01/11/2024 PAD (peripheral artery disease) 05/13/2022 Paroxysmal atrial fibrillation (CMS/HCC) 022 PSVT (paroxysmal supraventricular tachycardia) 0 05/13/2022 Iron deficiency anemia 05/13/2022 Coronary artery disease invo lving [place] coronary artery of [place] heart without angina pectoris 07/01/2021 H/O acute myocardial infarction of inferior wall 07/01/2021 Chronic fatigue 07/01/2021 Decreased ambulation status 07/01/2021 Mixed hyperlipidemia 07/01/2021 Elevated troponin 09/14/2019 Assessment & Plan (09/14/2019 7:19 PM CDT): Resolved Trop 0.07 on admission -> 0.06. No ST changes on EKG. Likely demand in setting of PNA. Hypotension 09/12/2019 Chest wall pain 09/11/2019 COPD (chronic obstructive pulmonary disease) Assessment & Plan (09/15/2019 11:38 AM CDT): Chart history of COPD. No PFTs in our system. On albuterol PRN at home. Recently treated by her PCP for a COPD exacerbation with prednisone and azithromycin about two weeks prior to admission. She has approximately one hospitalization per year for COPD exacerbation. She has never been intubated. She had a prior hospitalization for pneumonia in 2013. She follows with PCP in [place] who manages her COPD medications (on multiple inhalers but patient not sure which). - haresh q4hrs - s/p azithro (09/11-09/13) - has appt with pulmonology in 11/2019 for PFTs Depressive disorder 09/11/2019 Ecchymosis 09/11/2019 Impacted cerumen 09/11/2019 Osteoarthritis 09/11/2019 Syncope and collapse 09/11/2019 History of gastric ulcer 08/10/2019 History of pneumonia 08/10/2019 Exacerbation of asthma 09/13/2018 Essential hypertension 01/11/2018 Rhinitis 09/14/2017 Chronic back pain 06/15/2017 Spinal stenosis of lumbar re gion without neurogenic claudication 04/23/2016 Spondylolisthesis, lumbar region 04/23/2016 Resolved Problems Problem Noted Date Diagnosed Date Resolved Date Hospital-acquired pneumonia 09/12/2019 05/13/2022 Assessment & Plan (09/15/2019 11:39 AM CDT): On presentation, febrile, WBC 42, RUL infiltrate on CXR. Has not required supplemental oxygen throughout admission. Empirically started on vanc/cefe/azithro (09/11-). Became hypotensive to 70s systolic and required transfer to ICU and 4L fluid resuscitation. BP remained stable in ICU and transferred back to the floor on 09/14. Vanc d/c'd 09/14 as low concern for MRSA and troughs persistently subtherapeutic. Remains HDS and satting well on RA. - s/p cefe (09/11-09/15), azithro (09/11-09/13), vanc (09/11-09/14) - transition to PO levofloxacin 750 q48hrs to complete 7-day course total (end 09/17) - PT/OT rec SNF but patient refuses so rec HH with PT/OT (ordered) Chest injury 09/11/2019 05/13/2022 Encounters Date Type Department Care Team Description 10/09/2024 10:30 AM SLOT OPERATIONS DIRECTOR Ancillary Procedure [facility] Cardiology [facility] [address] [place] [phone] Paroxysmal atrial fibrillation (CMS/HCC) (HCC); PSVT (paroxysmal supraventricular tachycardia) (HCC); Status post placement of implantable loop recorder; Syncope and collapse 10/09/2024 Telephone [facility] Cardiology [address] [place] [phone] Robi Garcia MD Loss of Consciousness; loop recorder 09/11/2024 Telephone [facility] Cardiology [address] [place] [phone] Robi Garcia MD from Last 3 Months Surgical History Surgery Date Site/Laterality Comments TOTAL KNEE ARTHROPLASTY Bilateral CHOLECYSTECTOMY BACK SURGERY BLADDER REPAIR Medical History Medical History Date Comments Head and neck cancer (HCC) Lung nodule HTN (hypertension) COPD (chronic obstructive pu lmonary disease) (HCC) Coronary artery disease Arthritis Asthma Myocardial infarction (HCC) 03/2020 Occl uded proximal RCA, stent proximal RCA, stent PDA, Dr. Li, [facility] Depression Mixed hyperlipidemia Chronic back pain Kidney stones Family History Medical History Relation Name Comments Cancer Father Diabetes Father Pneumonia Mother Relation Name Status Comments Father (Age 80) Mother (Age 86) Social History Tobacco Use Types Packs/Day Years Used Date Smoking Tobacco: Every Day Cigarettes 0.1 44 Started: 11/22/1980 Smokeless Tobacco: Never Tobacco Cessation:Ready to Q uit: Not Asked; Counseling Given: Not Answered Comments Unknown Sex and Gender Information Value Date Recorded Sex Assigned at Not on file Legal Sex Female 7:12 PM SLOT OPERATIONS DIRECTOR Gender Identity Not on file Sexual Orientation Not on file Obstetrics History Last Filed Vital Signs Vital Sign Reading Time Taken Comments Blood Pressure 140/82 07/11/2024 10:22 AM CDT Pulse 57 07/11/2024 10:22 AM CDT Temperature 36.6 ??C (97.8 ??F) 04/17/2020 12:00 PM C DT Respiratory Rate 18 07/22/2021 12:05 PM CDT Oxygen Saturation 99% 07/11/2024 10:22 AM CDT Inhaled Oxygen Concentration - - Weight 50.3 kg (111 lb) 07/11/2024 10:22 AM CDT Height 149.9 cm (4' 11 ) 07/11/2024 10:22 AM CDT Body Mass Index 22.42 07/11/2024 10:22 AM CDT Plan of Treatment Health Maintenance Due Date Last Done Comments Depression Screening 1941 Osteoporosis Screening-Bone Density Scan 1941 Pneumococcal vaccine 65+ (1 of 2 - PCV) 1947 DTaP/Tdap/Td Vaccine (1 - Tdap) 1952 Hepatitis B Screening 1959 Zoster Vaccine (1 of 2) 1991 Well Visit 65+ 2006 Fall Risk Assessment 04/17/2021 04/17/2020 Influenza Vaccine (#1) 2024 10/19/2016 Medical Devices Implanted Type Area Military Source Operations Specialist Device Identifier Shelf Expiration Date Model / Serial / Lot [employer] [id number] System Coronary Stent Xience Rivka Everolimus L18 Mm Od3 Mm Rapid Exchange - [id number] Implanted:Qty: 1 on 04/15/2020 by Merlin Nunez MD at [facility] [employer] [id number] / / [employer] [id number] System Coronary Stent Xience Rivka Everolimus L38 Mm Od3.5 Mm Rapid Exchange - [id number] Implanted:Qty: 1 on 04/15/2020 by Mrelin Nunez MD at [facility] [employer] [id number] / / Procedures Procedure Name Priority Date/Time Associated Diagnosis Comments DEVICE CHECK - REMOTE Routine 10/09/2024 11:07 AM SLOT OPERATIONS DIRECTOR Paroxysmal atrial fibrillation (CMS/HCC) (HCC) PSVT (paroxysmal supraventricular tachycardia) (HCC) Status post placement of implantable loop recorder Syncope and collapse from Last 3 Months Results * DEVICE CHECK - REMOTE (10/09/2024 11:07 AM SLOT OPERATIONS DIRECTOR) Anatomical Region Laterality Modality Other Narrative 10/17/2024 9:01 AM SLOT OPERATIONS DIRECTOR Medtronic LNQ22 Loop Recorder. Dx; PAF, PSVT, Syncope. DOI 01/19/2024-[facility] remote f/u. As of 05/15/24-remote monitoring for alerts. Pt unable to afford the monthly copays from her Insurance. Co. Unscheduled remote d/t patient telephone message regarding syncope episode on 10/08/24. Presenting rhythm-VS, regular 60 bpm. No episodes noted since 09/06/2024. Pause episode noted on 09/06/24, egm-false d/t undersensed r-waves. [facility] remote f/u 11/27/2024. Li Nguyen, ROD Jillian Menendez MD [facility] PROCEDU RES Final Result from Last 3 Months Insurance MEDICARE SOLUTIONS MEDICARE SOLUTIONS Advance Directives For more information, please contact: [phone] * Full Code (Latest Code Status on File) Date Activated Date Inactivated Comments 04/15/2020 5:41 AM 04/17/2020 6:04 PM * Full Code Date Activated Date Inactivated Comments 09/11/2019 7:58 PM 09/15/2019 6:52 PM Care Teams Carpentry Professional Relationship Specialty Start Date End Date Roxana Graham NP [address] [place] [address] PCP - General Nurse Practitioner 11/30/23 Merlin Nunez MD Consulting Physician Cardiovascular Disease 04/17/20
--- OUTSIDE RECORDS SUMMARY | 2024-12-08 03:46 | XMS_ITS | Encounter Summary ---
Author Organization [facility] Healthcare Address [address] [place] [address] Care Team Providers Care Commercial Account Officer Name Role Phone Merlin Nunez MD Unavailable [phone] Roxana Graham NP Primary Care Provider [phone] Encounter Details Date Type Department Care Team (Late st Contact Info) Description 05/16/2024 Telephone [facility] Medical Group Cardiology [address] [facility] [address] [place] [address] Marianela Mullen NP [address] [place] [address] Social History Tobacco Use Types Packs/Day Years Used Date Smoking Tobacco: Every Day Cigarettes 0.1 44 Started: 11/22/1980 Smokeless Tobacco: Never Comments Unknown Sex and Gender Information Value Date Recorded Sex Assigned at Not on file Legal Sex Female 7:12 PM MILITARY PILOT Gender Identity Not on file Sexual Orientation Not on file documented as of this encounter Miscellaneous Notes * Telephone Encounter - Jemima Escobedo MA - 06/19/2024 11:26 AM CDT Called and informed patient that samples are ready for pickup. Patient stated that will come by office either today or tomorrow to pickup samples. * Telephone Encounter - Chantelle Lamb - 06/19/2024 10:59 AM CDT Pt requesting samples of rivaroxaban (Xarelto) 20 mg tablet. Contact:[phone] * Telephone Encounter - Analy Ac MA - 05/29/2024 10:45 AM CDT Samples at the front end loader driver for patient picker. Patient notified. * Telephone Encounter - Chantelle Lamb - 05/29/2024 10:38 AM CDT Pt requesting samples of rivaroxaban (Xarelto) 20 mg tablet. Contact:[phone] * Telephone Encounter - Analy Ac MA - 05/16/2024 10:06 AM CDT Samples at the front end loader driver for patient picker. Patient notified. * Telephone Encounter - Radha Soto - 05/16/2024 9:50 AM CDT Pt requesting samples of rivaroxaban (Xarelto) 20 mg tablet. Contact:[phone] documented in this encounter Plan of Treatment Not on file documented as of this encounter Visit Diagnoses Not on filedocumented in this encounter Care Teams Commercial Account Officer Relationship Specialty Start Date End Date Roxana Graham NP [address] [place] [address] PCP - General Nurse Practitioner 11/30/23 Merlin Nunez MD Consulting Physician Cardiovascular Disease 04/17/20 documented as of this encounter
--- OUTSIDE RECORDS SUMMARY | 2024-12-08 03:46 | XMS_ITS | Encounter Summary ---
Author Organization [facility] Healthcare Address [address] [place] [address] Care Team Providers Care Store Product Demonstrator Name Role Phone Merlin Nunez MD Unavailable [phone] Roxana Graham NP Primary Care Provider [phone] Encounter Details Date Type Department Care Team (Late st Contact Info) Description 09/11/2024 Telephone [facility] Medical Group Cardiology [address] [facility] [address] [facility] [address] [place] [phone] Robi Garcia MD [address] [facility] [address] [place] [address] Social History Tobacco Use Types Packs/Day Years Used Date Smoking Tobacco: Every Day Cigarettes 0.1 44 Started: 11/22/1980 Smokeless Tobacco: Never Comments Unknown Sex and Gender Information Value Date Recorded Sex Assigned at Not on file Legal Sex Female 7:12 PM PELLETISING EXTRUDER OPERATOR Gender Identity Not on file Sexual Orientation Not on file documented as of this encounter Miscellaneous Notes * Telephone Encounter - Yary Hoffmann RN - 10/24/2024 12:17 PM PELLETISING EXTRUDER OPERATOR Spoke with pt again, told her I was misinformed and we are getting samples of xarelto but only on luis limited basis. Providing her with a few weeks worth of samples. Pt was very appreciative! ETISING EXTRUDER OPERATOR * Telephone Encounter - Yary Hoffmann RN - 10/24/2024 10:53 AM PELLETISING EXTRUDER OPERATOR Spoke with pt, informed her we do not have samples for xarelto anymore but did provide her with thenumber for xarelto and mailed her a donuthole pamphlet to call and see if they can provide her withany assistance with cost. Pt appreciated the assistance. Pt said the cost is too expensive and it is hard to live each month. Advised pt to callback if they are of no help and we can explore other options for anticoagulation. ETISING EXTRUDER OPERATOR * Telephone Encounter - Radha Soto - 10/24/2024 10:12 AM CST Pt requesting samples of rivaroxaban (Xarelto) 20 mg tablet. Contact:[phone] ETISING EXTRUDER OPERATOR * Telephone Encounter - Jemima Rodriguez MA - 09/26/2024 11:34 AM PELLETISING EXTRUDER OPERATOR Pt notified we are currently out of samples and she can call back in a couple weeks. She mentioned the cost of Xarelto and I mailed her the number for their assistance program ETISING EXTRUDER OPERATOR ETISING EXTRUDER OPERATOR * Telephone Encounter - Chantelle Lamb - 09/26/2024 11:30 AM CST Patient requesting samples of rivaroxaban (Xarelto) 20 mg. Contact [phone] ETISING EXTRUDER OPERATOR * Telephone Encounter - Analy Ac MA - 09/11/2024 10:22 AM CDT Samples of Xarelto 10 mg tablets at the front desk supervisor for patient grape picker. Patient notified she will need to take TWO tablets once daily to equal her normal dose of Xarelto 20 mg. Patient voiced understanding an repeated back correctly. Reminder note with instructions placed in bag with samples. * Telephone Encounter - Chantelle Lamb - 09/11/2024 8:33 AM CDT Patient requesting samples of rivaroxaban (Xarelto) 20 mg. Contact [phone] documented in this encounter Plan of Treatment Not on file documented as of this encounter Visit Diagnoses Not on filedocumented in this encounter Care Teams Store Product Demonstrator Relationship Specialty Start Date End Date Roxana Graham NP [address] [place] [address] PCP - General Nurse Practitioner 11/30/23 Merlin Nunez MD Consulting Physician Cardiovascular Disease 04/17/20 documented as of this encounter
--- OUTSIDE RECORDS SUMMARY | 2024-12-08 03:46 | XMS_ITS | Encounter Summary ---
Author Organization [facility] Healthcare Address [address] [place] [address] Care Team Providers Care Custom Furrier Name Role Phone Merlin Nunez MD Unavailable [phone] Roxana Graham NP Primary Care Provider [phone] Reason for Visit * Reason Comments Follow-up 6 mo Encounter Details Date Type Department Care Team (Late st Contact Info) Description 07/11/2024 10:30 AM CDT Office Visit [facility] Medical Group Cardiology [address] [address] Marianela Mullen NP [address] [place] [address] Coronary artery disease involving 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 (Primary Dx); Paroxysmal atrial fibrillation (CMS/HCC) (HCC); Chronic anticoagulation; Essential hypertension; Syncope and collapse; Status post placement of implantable loop recorder Social History Tobacco Use Types Packs/Day Years Used Date Smoking Tobacco: Every Day Cigarettes 0.1 44 Started: 11/22/1980 Smokeless Tobacco: Never Tobacco Cessation:Ready to Q uit: Not Asked; Counseling Given: Not Answered Comments Unknown Sex and Gender Information Value Date Recorded Sex Assigned at Not on file Legal Sex Female 7:12 PM SECURITY DOOR INSTALLER Gender Identity Not on file Sexual Orientation Not on file documented as of this encounter Last Filed Vital Signs Vital Sign Reading Time Taken Comments Blood Pressure 140/82 07/11/2024 10:22 AM CDT Pulse 57 07/11/2024 10:22 AM CDT Temperature - - Respiratory Rate - - Oxygen Saturation 99% 07/11/2024 10:22 AM CDT Inhaled Oxygen Concentration - - Weight 50.3 kg (111 lb) 07/11/2024 10:22 AM CDT Height 149.9 cm (4' 11 ) 07/11/2024 10:22 AM CDT Body Mass Index 22.42 07/11/2024 10:22 AM CDT documented in this encounter Progress Notes * Marianela Mullen NP - 07/11/2024 10:30 AM CDT Images from the original note were not included. [facility] Medical Group Cardiology [address] [place] [address] Date of Visit: 07/11/2024 Patient ID: Ni Neri 1940 Chief Complaint: Ni Neri is a 83 y.o. female who is an established patient of Dr. Menendez with a history ofCAD, PAF and syncope returning to the office for routine follow-up. History of Present Illness: Ni Neri is a 83 y.o. female with a history of inferior OR and stent to the RCA and PDA in 03/2020. Also history of paroxysmal Afib (incidentally noted on monitor 2021) , brief PSVT, syncope, hypertension, hyperlipidemia, COPD, asymptomatic PAD (70% stenosis of the right common iliac), recurrent syncope, chronic back pain with spinal stenosis. Has been hospitalized for sepsis and also respproblems in last couple of years. Referred to Dr. Menendez in 2020. Syncopal episodes continue to occur throughout 8089-2115. Patient agreed to implantation of a loop recorder in December 2023. Collins Rothman, relies on samples. Continues to smoke. 07/11/2024 office visit with GARMENT PRESSER: She is here for routine follow-up. She has not had any further syncopal episodes since the loop recorder was implanted. Her concerns today are always feeling tired, not being able to be as physically active as she used to be, her legs from the knees down always feelnumb. Social: [place] in 12/2018. 4 children but oldest son fr cancer 2021 age 62. Review of Systems Constitutional: Positive for malaise/fatigue. Negative for weight gain and weight loss. Cardiovascular: Positive for dyspnea on exertion (chronic). Negative for chest pain, claudication, leg swelling, near-syncope, orthopnea, palpitations, paroxysmal nocturnal dyspnea and syncope. Respiratory: Negative for cough, shortness of breath and sleep disturbances due to breathing. Hematologic/Lymphatic: Negative for bleeding problem. Does not bruise/bleed easily. Musculoskeletal: Positive for back pain. Neurological: Positive for paresthesias (chronic neuropathy bilat lower extremities). Negative for dizziness and light-headedness. Vital Signs: BP 140/82 (BP Location: Left arm, Patient Position: Sitting) Pulse 57 Ht 149.9 cm (4' 11 ) Wt50.3 kg (111 lb) SpO2 99% BMI 22.42 kg/m?? Physical Exam Constitutional: General: She is not in acute distress. Appearance: She is well-developed. HENT: Head: Normocephalic and atraumatic. Eyes: General: No scleral icterus. Conjunctiva/sclera: Conjunctivae normal. Pupils: Pupils are equal, round, and reactive to light. Neck: Vascular: No JVD. Trachea: No tracheal deviation. Cardiovascular: Rate and Rhythm: Regular rhythm. Bradycardia present. Heart sounds: No murmur heard. Pulmonary: Effort: No respiratory distress. Comments: Expiratory wheezes cleared after pt was instructed to cough Musculoskeletal: Right lower leg: No edema. Left lower leg: No edema. Comments: No appreciable edema in lower extremities Skin: General: Skin is warm and dry. Neurological: Mental Status: She is alert and oriented to person, place, and time. Psychiatric: Mood and Affect: Mood normal. Behavior: Behavior normal. Allergies Allergen Reactions Codeine Itching Hydromorphone Stomach upset Morphine Stomach upset Sulfa (Sulfonamide Antibiotics) Stomach upset Current Outpatient Medications: acetaminophen (TYLENOL) 325 mg tablet, Take 2 tablets (650 mg total) by mouth every 4 (four) hours as needed for pain, Disp: 30 tablet, Rfl: albuterol HFA (PROVENTIL HFA,VENTOLIN HFA,PROAIR HFA) 90 mcg/actuation inhaler, Take 2 puffs by mouth 4 (four) times a day, Disp: , Rfl: dorzolamide-timoloL (COSOPT) 22.3-6.8 mg/mL ophthalmic solution, Administer 1 drop into both eyes 2(two) times a day, Disp: , Rfl: ergocalciferol (VITAMIN D) 50,000 unit capsule, TAKE 1 CAPSULE BY MOUTH ONCE WEEKLY X12 WEEKS THEN RECHECK BLOOD LEVELS, Disp: , Rfl: latanoprost (XALATAN) 0.005 % ophthalmic solution, , Disp: , Rfl: losartan (COZAAR) 50 mg tablet, TAKE 1 TABLET BY MOUTH EVERY DAY, Disp: 90 tablet, Rfl: 2 nitroglycerin (NITROSTAT) 0.4 mg SL tablet, Place 1 tablet (0.4 mg total) under the tongue every 5 (five) minutes as needed for chest pain, Disp: 25 tablet, Rfl: 3 omeprazole (PriLOSEC) 40 mg capsule, Take 1 capsule (40 mg total) by mouth daily, Disp: , Rfl: oxyCODONE-acetaminophen (PERCOCET) 10-325 mg per tablet, Take 1 tablet by mouth every 4 (four) hours as needed, Disp: , Rfl: pravastatin (PRAVACHOL) 40 mg tablet, TAKE 1 TABLET BY MOUTH EVERY DAY, Disp: 90 tablet, Rfl: 3 rivaroxaban (Xarelto) 20 mg tablet, Take 1 tablet (20 mg total) by mouth daily, Disp: 14 tablet, Rfl: 0 escitalopram (LEXAPRO) 20 mg tablet, TAKE 1 TABLET EVERY DAY BY ORAL ROUTE FOR 30 DAYS. 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 LV function was normal on echo in July 2021. LDL is at goal. Aspirin has been stopped because of Xarelto to reduce bleeding risk particularly with her history of anemia. She has not had any angina recently. Continue pravastatin. She has a history of paroxysmal atrial fibrillation. She is maintaining sinus rhythm. She is not onrate controlling medication because she has not had any AFib with RVR. Continue Xarelto. She relieson samples, samples given today in the office. Blood pressure is at goal. Continue losartan. She has a history of syncopal episodes for which she agreed to have a loop recorder implanted this past December. She has not had further syncope since it was implanted. We are not doing remote downloads on a scheduled basis due to the cost she encouraged for this. Therefore I advised her if she has syncope in the future, notify the office so we can pull a download from the loop recorder. We will transition her ongoing care from Dr. Menendez to Dr. Garcia with routine follow-up in 6 months. Call sooner with questions or concerns. SHARRI Palomares- Nurse Practitioner with [facility] Cardiology This note is dictated and transcribed using Farm[employer] Direct Software. Mixing Supervisor variancesmay occur. Despite proofreading, typographical errors may occur. 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 Medication Sig Dispense Quantity Refills Last Filled Start D ate End Date latanoprost (XALATAN) 0.005 % ophthalmic solution 07/10/2024 added in this encounter Care Teams Custom Furrier Relationship Specialty Start Date End Date Roxana Graham NP [address] [place] [address] PCP - General Nurse Practitioner 11/30/23 Merlin Nunez MD Consulting Physician Cardiovascular Disease 04/17/20 documented as of this encounter
--- OUTSIDE RECORDS SUMMARY | 2024-12-08 03:46 | XMS_ITS | Encounter Summary ---
Author Organization [facility] Healthcare Address [address] [place] [address] Care Team Providers Care Straw Hat Brusher Name Role Phone Merlin Nunez MD Unavailable [phone] Roxana Graham NP Primary Care Provider [phone] Encounter Details Date Type Department Care Team (Late st Contact Info) Description 08/03/2024 Telephone [facility] Medical Group Cardiology [address] [facility] 162 [facility] [address] [place] [address] Robi Garcia MD [address] [facility] [address] [place] [address] Social History Tobacco Use Types Packs/Day Years Used Date Smoking Tobacco: Every Day Cigarettes 0.1 44 Started: 11/22/1980 Smokeless Tobacco: Never Comments Unknown Sex and Gender Information Value Date Recorded Sex Assigned at Not on file Legal Sex Female 7:12 PM NUTRITION SERVICES ASSISTANT Gender Identity Not on file Sexual Orientation Not on file documented as of this encounter Miscellaneous Notes * Telephone Encounter - Jemima Rodriguez MA - 08/03/2024 11:06 AM CDT Pt aware we have samples ready for berry picker machine operator * Telephone Encounter - Chantelle Lamb - 08/03/2024 9:36 AM CDT Pt requesting samples of rivaroxaban (Xarelto) 20 mg tablet. Contact:[phone] documented in this encounter Plan of Treatment Not on file documented as of this encounter Visit Diagnoses Not on filedocumented in this encounter Care Teams Straw Hat Brusher Relationship Specialty Start Date End Date Roxana Graham NP [address] [place] [address] PCP - General Nurse Practitioner 11/30/23 Merlin Nunez MD Consulting Physician Cardiovascular Disease 04/17/20 documented as of this encounter
--- OUTSIDE RECORDS SUMMARY | 2024-12-08 03:46 | XMS_ITS | Encounter Summary ---
Author Organization [facility] Healthcare Address [address] [place] [address] Care Team Providers Care Precision Machining Instructor Name Role Phone Merlin Nunez MD Unavailable [phone] Roxana Graham NP Primary Care Provider [phone] Reason for Visit * Cardiology (Routine) - Closed Specialty Diagnoses / Procedures Referred By Jong t Referred To Contact Cardiology Diagnoses Paroxysmal atrial fibrillation (CMS/HCC) (HCC) PSVT (paroxysmal supraventricular tachycardia) (HCC) Status post placement of implantable loop recorder Syncope and collapse Procedures DEVICE CHECK - REMOTE Jillian Menendez MD Phone: tel: fax: [facility] Medical Group Referral ID Status Reason Start Date Expiration Date Visits Re quested Visits Authorized [id number] Closed 01/20/2024 07/20/2025 1 1 Encounter Details Date Type Department Care Team (Latest Contact Info) Description 08/28/2024 11:45 AM CDT Ancillary Procedure [facility] Medical Group Cardiology [address] [place] [address] [place] [phone] Paroxysmal atrial fibrillation (CMS/HCC) (HCC); PSVT (paroxysmal supraventricular tachycardia) (HCC); Status post placement of implantable loop recorder; Syncope and collapse Social History Tobacco Use Types Packs/Day Years Used Date Smoking Tobacco: Every Day Cigarettes 0.1 44 Started: 11/22/1980 Smokeless Tobacco: Never Comments Unknown Sex and Gender Information Value Date Recorded Sex Assigned at Not on file Legal Sex Female 7:12 PM SOCIAL SERVICES AIDE Gender Identity Not on file Sexual Orientation Not on file documented as of this encounter Plan of Treatment Not on file documented as of this encounter Procedures Procedure Name Priority Date/Time Associated Diagnosis Comments DEVICE CHECK - REMOTE Routine 09/05/2024 2:28 PM CDT Paroxysmal atrial fibrillation (CMS/HCC) (HCC) PSVT (paroxysmal supraventricular tachycardia) (HCC) Status post placement of implantable loop recorder Syncope and collapse documented in this encounter Results * DEVICE CHECK - REMOTE (09/05/2024 2:28 PM CDT) Anatomical Region Laterality Modality Other Narrative 11/24/2024 1:56 PM SOCIAL SERVICES AIDE Medtronic LNQ22 Loop Recorder. Dx; PAF, PSVT, Syncope. DOI 01/19/2024-[facility]. [facility] remote f/u. As of 05/15/24-remote monitoring for alerts. Pt unable to afford the monthly copays from her Insurance. Co. ILR remote f/u. Battery function-Good. Presenting rhythm-VS, regular 50 bpm. Pause episode noted on 08/01/2024, egm-false d/t undersensed r-waves. [facility] remote f/u 11/27/2024. Li Nguyen RN us Jillian Menendez MD CV CARDIAC SERVICES PROCEDU RES Final Result documented in this encounter Visit Diagnoses Diagnosis Paroxysmal atrial fibrillation (CMS/HCC) (HCC) Atrial fibrillation PSVT (paroxysmal supraventricular tachycardia) (HCC) Paroxysmal supraventricular tachycardia Status post placement of implantable loop recorder Syncope and collapse documented in this encounter Care Teams Precision Machining Instructor Relationship Specialty Start Date End Date Roxana Graham NP [address] [place] [address] PCP - General Nurse Practitioner 11/30/23 Merlin Nunez MD Consulting Physician Cardiovascular Disease 04/17/20 documented as of this encounter
--- OUTSIDE RECORDS SUMMARY | 2024-12-08 03:46 | XMS_ITS | Referral Summary ---
Author Organization [facility] Address [address] [place] [address] Care Team Providers Care Outboard Motors Experimental Mechanic Name Role Phone Merlin Nunez MD Unavailable [phone] Roxana Graham NP Primary Care Provider [phone] Encounters Date Type Department Care Team Description 10/09/2024 Telephone [facility] Medical [facility] Cardiology [address] [facility] [address] [place] [phone] Robi Garcia MD Loss of Consciousness; loop recorder 10/09/2024 10:30 AM RETAIL LEASING AGENT Ancillary Procedure [facility] Cardiology [facility] [address], [place] [address] Paroxysmal atrial fibrillation (CMS/HCC) (HCC); PSVT (paroxysmal supraventricular tachycardia) (HCC); Status post placement of implantable loop recorder; Syncope and collapse 09/11/2024 Telephone [facility] Cardiology [address] [facility] [address] [place] [phone] Robi Garcia MD from Last 3 Months Allergies Active Allergy Reactions Criticality Noted Date [...] mg SL tabletIndications :Coronary artery disease of [place] artery of [place] heart with stable angina pectoris (HCC) Place 1 tablet (0.4 mg total) under the tongue every 5 (five) minutes as needed for chest pain 25 tablet 3 4 Active losartan (COZAAR) 50 mg tablet TAKE 1 TABLET BY MOUTH EVERY DAY 90 tablet 2 4 Active latanoprost (XALATAN) 0.005 % ophthalmic solution 4 Active pravastatin (PRAVACHOL) 40 mg tabletIndications :Coronary artery disease involving [place] coronary artery of [place] heart without angina pectoris TAKE 1 TABLET [...] Loop Recorder. Dx; PAF, PSVT, Syncope. DOI 01/19/2024-[facility]. [facility] remote f/u. Subacute cough 01/11/2024 PAD (peripheral artery disease) 05/13/2022 Paroxysmal atrial fibrillation (CMS/HCC) 022 PSVT (paroxysmal supraventricular tachycardia) 0 05/13/2022 Iron deficiency anemia 05/13/2022 Coronary artery disease invo lving cold [place] coronary artery of [place] heart without angina pectoris 07/01/2021 H/O acute [...] in 2013. She follows with PCP in [place] who manages her COPD medications (on multiple inhalers but patient not sure which). - haresh q4hrs - s/p aviva (09/11-09/13) - has appt with pulmonology in [...] with PT/OT (ordered) Chest injury 09/11/2019 05/13/2022 Social History Tobacco Use Types Packs/Day Years Used Date Smoking Tobacco: Every Day Cigarettes 0.1 44 Started: 11/22/1980 Smokeless Tobacco: Never Tobacco Cessation:Ready to Q uit: Not Asked; Counseling Given: Not Answered Comments Unknown Sex and Gender Information Value Date Recorded Sex Assigned at Not on file Legal Sex Female 7:12 PM RETAIL LEASING AGENT Gender Identity Not on file Sexual Orientation Not on file Last Filed Vital Signs Vital Sign Reading [...] 07/11/2024 10:22 AM CDT Plan of Treatment Not on file Medical Devices Implanted Type Area Printed Circuit Layout Taper Device Identifier Shelf Expiration Date Model / Serial / Lot [employer] Vascular [id number] System Coronary Stent Xience Rivka Everolimus L18 Mm Od3 Mm Rapid Exchange - [id number] Implanted:Qty: 1 on 04/15/2020 by Merlin Nunez MD at [facility] Vascular [id number] / / [employer] Vascular [id number] System Coronary Stent Xience Rivka Everolimus L38 Mm Od3.5 Mm Rapid Exchange - [id number] Implanted:Qty: 1 on 04/15/2020 by Merlin Nunez MD at [facility] Vascular [id number] / / Procedures Procedure Name Priority Date/Time Associated Diagnosis Comments DEVICE CHECK - REMOTE Routine 10/09/2024 11:07 AM RETAIL LEASING AGENT Paroxysmal atrial fibrillation (CMS/HCC) (HCC) PSVT (paroxysmal supraventricular tachycardia) (HCC) Status post placement of implantable loop recorder Syncope and collapse from Last 3 Months Results * DEVICE CHECK - REMOTE (10/09/2024 11:07 AM RETAIL LEASING AGENT) Anatomical Region Laterality Modality Other Narrative 10/17/2024 9:01 AM RETAIL LEASING AGENT Medtronic [id number] Loop Recorder. Dx; PAF, PSVT, Syncope. DOI 01/19/2024-[facility]. [employer] remote f/u. As of 05/15/24-remote monitoring for alerts. Pt unable to afford the monthly copays from her Insurance. Co. Unscheduled remote d/t patient telephone message regarding syncope episode on 10/08/24. Presenting rhythm-VS, regular 60 bpm. No episodes noted since 09/06/2024. Pause episode noted on 09/06/24, egm-false d/t undersensed r-waves. [facility]link remote f/u 11/27/2024. Li Nguyen, ROD us Jillian Menendez MD CV CARDIAC SERVICES PROCEDU RES Final Result from Last 3 Months Insurance MEDICARE [employer]IONS MEDICARE SOLUTIONS Advance Directives For more information, please contact: [phone] * Full Code (Latest Code Status on File) Date Activated Date Inactivated Comments 04/15/2020 5:41 AM 04/17/2020 6:04 PM * Full Code Date Activated Date Inactivated Comments 09/11/2019 7:58 PM 09/15/2019 6:52 PM Care Teams Outboard Motors Experimental Mechanic Relationship Specialty Start Date End Date Roxana Graham NP [address] [place] [address] PCP - General Nurse Practitioner 11/30/23 Merlin Nunez MD Consulting Physician Cardiovascular Disease 04/17/20
--- OUTSIDE RECORDS SUMMARY | 2024-12-08 03:46 | XMS_ITS | Encounter Summary ---
Author Organization [facility] Healthcare Address [address] [place] [address] Care Team Providers Care Information Assurance Officer Name Role Phone Merlin Nunez MD Unavailable [phone] Roxana Graham NP Primary Care Provider [phone] Reason for Visit * Reason Onset Date Comments samples 08/21/2024 Encounter Details Date Type Department Care Team (Late st Contact Info) Description 08/21/[address] [facility] Medical Group Cardiology [address] [facility] [address] [phone] Robi Garcia MD [address] [facility] [address] [place] [address] samples Social History Tobacco Use Types Packs/Day Years Used Date Smoking Tobacco: Every Day Cigarettes 0.1 44 Started: 11/22/1980 Smokeless Tobacco: Never Comments Unknown Sex and Gender Information Value Date Recorded Sex Assigned at Not on file Legal Sex Female 7:12 PM RODENT EXTERMINATOR Gender Identity Not on file Sexual Orientation Not on file documented as of this encounter Miscellaneous Notes * Telephone Encounter - Analy Ac MA - 08/21/2024 8:41 AM CDT 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 Patient notified. * Telephone Encounter - Ruthann Thakkar - 08/21/2024 8:28 AM CDT Patient requesting samples of rivaroxaban (Xarelto) 20 mg. Contact [phone] documented in this encounter Plan of Treatment Not on file documented as of this encounter Visit Diagnoses Not on filedocumented in this encounter Care Teams Information Assurance Officer Relationship Specialty Start Date End Date Roxana Graham NP [address] [place] [address] PCP - General Nurse Practitioner 11/30/23 Merlin Nunez MD Consulting Physician Cardiovascular Disease 04/17/20 documented as of this encounter
--- OUTSIDE RECORDS SUMMARY | 2024-12-08 03:46 | XMS_ITS | Encounter Summary ---
Author Organization [facility] Healthcare Address [address] [place] [address] Care Team Providers Care Delivery Representative Name Role Phone Merlin Nunez MD Unavailable [phone] Roxana Graham NP Primary Care Provider [phone] Reason for Referral * Cardiology (Routine) - Authorized Specialty Diagnoses / Procedures Referred By Contac t Referred To Contact Cardiology Diagnoses Paroxysmal atrial fibrillation (CMS/HCC) (HCC) PSVT (paroxysmal supraventricular tachycardia) (HCC) Procedures DEVICE CHECK - REMOTE Robi Garcia MD [address] [place] [address] Phone: tel: fax: [facility] Referral ID Status Reason Start Date Expiration Date V isits Requested Visits Authorized [id number] Authorized 09/05/2024 03/06/2026 1 1 * Cardiology (Routine) - Authorized Specialty Diagnoses / Procedures Referred By Contac t Referred To Contact Diagnoses Paroxysmal atrial fibrillation (CMS/HCC) (HCC) PSVT (paroxysmal supraventricular tachycardia) (HCC) Procedures DEVICE CHECK - IN OFFICE Robi Garcia MD [address] [place] [address] Phone: tel: fax: [facility] Referral ID Status Reason Start Date Expiration Date V isits Requested Visits Authorized [id number] Authorized 09/05/2024 10/05/2025 1 1 * Cardiology (Routine) - Authorized Specialty Diagnoses / Procedures Referred By Contac t Referred To Contact Cardiology Diagnoses Paroxysmal atrial fibrillation (CMS/HCC) (HCC) PSVT (paroxysmal supraventricular tachycardia) (HCC) Procedures DEVICE CHECK - REMOTE Robi Garcia MD [address] [facility] [address] [place] [address] Phone: tel: fax: [facility] Referral ID Status Reason Start Date Expiration Date V isits Requested Visits Authorized [id number] Authorized 09/05/2024 03/06/2026 1 1 * Cardiology (Routine) - Authorized Specialty Diagnoses / Procedures Referred By Contac t Referred To Contact Cardiology Diagnoses Paroxysmal atrial fibrillation (CMS/HCC) (HCC) PSVT (paroxysmal supraventricular tachycardia) (HCC) Procedures DEVICE CHECK - REMOTE Robi Garcia MD [address] [facility] [address] [place] [address] Phone: tel: fax: [facility] Referral ID Status Reason Start Date Expiration Date V isits Requested Visits Authorized [id number] Authorized 09/05/2024 03/06/2026 1 1 * Cardiology (Routine) - Authorized Specialty Diagnoses / Procedures Referred By Contac t Referred To Contact Cardiology Diagnoses Paroxysmal atrial fibrillation (CMS/HCC) (HCC) PSVT (paroxysmal supraventricular tachycardia) (HCC) Procedures DEVICE CHECK - REMOTE Robi Garcia MD [address] [facility] [address] [place] [address] Phone: tel: fax: [facility] Referral ID Status Reason Start Date Expiration Date V isits Requested Visits Authorized [id number] Authorized 09/05/2024 03/06/2026 1 1 * Cardiology (Routine) - Authorized Specialty Diagnoses / Procedures Referred By Contac t Referred To Contact Cardiology Diagnoses Paroxysmal atrial fibrillation (CMS/HCC) (HCC) PSVT (paroxysmal supraventricular tachycardia) (HCC) Procedures DEVICE CHECK - REMOTE Robi Garcia MD [address] [place] [address] Phone: tel: fax: [facility] Referral ID Status Reason Start Date Expiration Date V isits Requested Visits Authorized [id number] Authorized 09/05/2024 03/06/2026 1 1 Encounter Details Date Type Department Care Team (Late st Contact Info) Description 09/05/2024 Orders Only [facility] Cardiology [address] [place] [phone] Robi Garcia MD [address] [place] [phone] Paroxysmal atrial fibrillation (CMS/HCC) (HCC) (Primary Dx); PSVT (paroxysmal supraventricular tachycardia) (HCC) Social History Tobacco Use Types Packs/Day Years Used Date Smoking Tobacco: Every Day Cigarettes 0.1 44 Started: 11/22/1980 Smokeless Tobacco: Never Comments Unknown Sex and Gender Information Value Date Recorded Sex Assigned at Not on file Legal 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 Gender Identity Not on file Sexual Orientation Not on file documented as of this encounter Plan of Treatment Scheduled Orders Name Type Priority Associated Diagnoses Orde r Schedule DEVICE CHECK - REMOTE Cardiac Services Routine Paroxysmal atrial fibrillation (CMS/HCC) (HCC) PSVT (paroxysmal supraventricular tachycardia) (HCC) Expected: 12/25/2024, Expires: 12/22/2029 DEVICE CHECK - REMOTE Cardiac Services Routine Paroxysmal atrial fibrillation (CMS/HCC) (HCC) PSVT (paroxysmal supraventricular tachycardia) (HCC) Expected: 11/28/2024, Expires: 11/21/2030 DEVICE CHECK - REMOTE Cardiac Services Routine Paroxysmal atrial fibrillation (CMS/HCC) (HCC) PSVT (paroxysmal supraventricular tachycardia) (HCC) Expected: 09/05/2024, Expires: 11/21/2030 DEVICE CHECK - REMOTE Cardiac Services Routine Paroxysmal atrial fibrillation (CMS/HCC) (HCC) PSVT (paroxysmal supraventricular tachycardia) (HCC) Expected: 09/05/2024, Expires: 11/21/2030 DEVICE CHECK - IN OFFICE Cardiac Services Routine Paroxysmal atrial fibrillation (CMS/HCC) (HCC) PSVT (paroxysmal supraventricular tachycardia) (HCC) Expected: 09/05/2024, Expires: 11/21/2030 DEVICE CHECK - REMOTE Cardiac Services Routine Paroxysmal atrial fibrillation (CMS/HCC) (HCC) PSVT (paroxysmal supraventricular tachycardia) (HCC) Expected: 09/05/2024, Expires: 11/21/2030 documented as of this encounter Visit Diagnoses Diagnosis Paroxysmal atrial fibrillation (CMS/HCC) (HCC)- Primary Atrial fibrillation PSVT (paroxysmal supraventricular tachycardia) (HCC) Paroxysmal supraventricular tachycardia documented in this encounter Care Teams Delivery Representative Relationship Specialty Start Date End Date Roxana Graham NP [address] [place] [phone] PCP - General Nurse Practitioner 11/30/23 Merlin Nunez MD Consulting Physician Cardiovascular Disease 04/17/20 documented as of this encounter
--- OUTSIDE RECORDS SUMMARY | 2024-12-08 03:46 | XMS_ITS | Encounter Summary ---
Author Organization [facility] Healthcare Address [address] [place] [address] Care Team Providers Care Proofer Apprentice Name Role Phone Merlin Nunez MD Unavailable [phone] Roxana Graham NP Primary Care Provider [phone] Reason for Visit * Cardiology (Routine) - Closed Specialty Diagnoses / Procedures Referred By Jong t Referred To Contact Cardiology Diagnoses Paroxysmal atrial fibrillation (CMS/HCC) (HCC) PSVT (paroxysmal supraventricular tachycardia) (HCC) Status post placement of implantable loop recorder Syncope and collapse Procedures DEVICE CHECK - REMOTE Jillian Menendez MD Phone: tel: fax: [facility] Referral ID Status Reason Start Date Expiration Date Visits Re quested Visits Authorized [id number] Closed 01/20/2024 07/20/2025 1 1 Encounter Details Date Type Department Care Team (Latest Contact Info) Description 10/09/2024 10:30 AM ELECTRONIC BENCH TECHNICIAN Ancillary Procedure [facility] Cardiology [address] [place] [address] [place] [phone] Paroxysmal atrial fibrillation (CMS/HCC) (HCC); PSVT (paroxysmal supraventricular tachycardia) (HCC); Status post placement of implantable loop recorder; Syncope and collapse Social History Tobacco Use Types Packs/Day Years Used Date Smoking Tobacco: Every Day Cigarettes 0.1 44 Started: 11/22/1980 Smokeless Tobacco: Never Comments Unknown Sex and Gender Information Value Date Recorded Sex Assigned at Not on file Legal Sex Female 7:12 PM ELECTRONIC BENCH TECHNICIAN Gender Identity Not on file Sexual Orientation Not on file documented as of this encounter Plan of Treatment Not on file documented as of this encounter Procedures Procedure Name Priority Date/Time Associated Diagnosis Comments DEVICE CHECK - REMOTE Routine 10/09/2024 11:07 AM ELECTRONIC BENCH TECHNICIAN Paroxysmal atrial fibrillation (CMS/HCC) (HCC) PSVT (paroxysmal supraventricular tachycardia) (HCC) Status post placement of implantable loop recorder Syncope and collapse documented in this encounter Results * DEVICE CHECK - REMOTE (10/09/2024 11:07 AM ELECTRONIC BENCH TECHNICIAN) Anatomical Region Laterality Modality Other Narrative 10/17/2024 9:01 AM ELECTRONIC BENCH TECHNICIAN [employer] [id number] Loop Recorder. Dx; PAF, PSVT, Syncope. [...] r-waves. [facility] remote f/u 11/27/2024. Li Nguyen, RN Jillian Menendez MD CV CARDIAC SERVICES PROCEDU RES Final Result documented in this encounter Visit Diagnoses Diagnosis Paroxysmal atrial fibrillation (CMS/HCC) (HCC) Atrial fibrillation PSVT (paroxysmal supraventricular tachycardia) (HCC) Paroxysmal supraventricular tachycardia Status post placement of implantable loop recorder Syncope and collapse documented in this encounter Care Teams Proofer Apprentice Relationship Specialty Start Date End Date Roxana Graham NP [address] [place] [id number] PCP - General Nurse Practitioner 11/30/23 Merlin Nunez MD Consulting Physician Cardiovascular Disease 04/17/20 documented as of this encounter
--- OUTSIDE RECORDS SUMMARY | 2024-12-08 03:47 | XMS_ITS | Encounter Summary ---
Author Organization [facility] Healthcare Address [address] [place] [address] Care Team Providers Care Maxillofacial Prosthodontist Name Role Phone Merlin Nunez MD Unavailable [phone] Roxana Graham NP Primary Care Provider [phone] Encounter Details Date Type Department Care Team (Late st Contact Info) Description 03/15/2024 Telephone [facility] Cardiology [address] [facility] [address] [place] [phone] Marianela Mullen NP [address] [place] [address] Social History Tobacco Use Types Packs/Day Years Used Date Smoking Tobacco: Every Day Cigarettes 0.1 44 Started: 11/22/1980 Smokeless Tobacco: Never Comments Unknown Sex and Gender Information Value Date Recorded Sex Assigned at Not on file Legal Sex Female 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 Patient notified. * Telephone Encounter - Elif Melton - 03/15/2024 2:13 PM CDT Pt asking for xerelto 20 mg samples. Please call back [phone] documented in this encounter Plan of Treatment Not on file documented as of this encounter Visit Diagnoses Not on filedocumented in this encounter Care Teams Maxillofacial Prosthodontist Relationship Specialty Start Date End Date Roxana Graham NP [address] [place] [address] PCP - General Nurse Practitioner 11/30/23 Merlin Nunez MD Consulting Physician Cardiovascular Disease 04/17/20 documented as of this encounter
--- OUTSIDE RECORDS SUMMARY | 2024-12-08 03:47 | XMS_ITS | Encounter Summary ---
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 Procedures MCT Mobile Cardiac Telemetry Event Monitor Jillian Carolina MD Phone: tel: fax: Referral ID Status Reason Start Date Expiration Date Visits Re quested Visits Authorized [id number] Closed 07/01/2021 07/31/2022 1 1 * Cardiology (Routine) - Closed Specialty Diagnoses / Procedures Referred By Jong sanots Referred To Contact Diagnoses Syncope and collapse 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 Procedures Transthoracic Echo Complete W Doppler/CF Jillian Carolina MD Phone: tel: fax: [facility] Referral ID Status Reason Start Date Expiration Date Visits Re quested Visits Authorized [id number] Closed 07/01/2021 07/31/2022 1 1 Reason for Visit * Reason Comments New Patient fainted twice and parekh d a heart attack 03/2020 * Consultation (Routine) - Closed Specialty Diagnoses / Procedures Referred By Jong santos Referred To Contact Cardiology Diagnoses Syncope and collapse Nuno Lozano MD [address] [place] [address] Phone: tel: fax: [facility] Cardiology [address] [place] [id number] Phone: tel: fax: Referral ID Status Reason Start Date Expiration Date V isits Requested Visits Authorized [id number] Closed Specialty Services Required 06/30/2021 12/27/2021 8 8 Encounter Details Date Type Department Care Team (Late st Contact Info) Description 07/01/2021 9:45 AM CDT Office Visit [facility] Cardiology [address] [phone] Jillian Carolina MD [address] [address] Syncope and collapse (Primary Dx); 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; H/O acute myocardial infarction of inferior wall; Weakness; Other emphysema (CMS/HCC) (HCC); Essential hypertension; Mixed hyperlipidemia; Depressive disorder Social History Tobacco Use Types Packs/Day Years Used Date Smoking Tobacco: Every Day Cigarettes 0.1 44 Started: 11/22/1980 Smokeless Tobacco: Never Comments Unknown Sex and Gender Information Value Date Recorded Sex Assigned at Not on file Legal 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 Gender Identity Not on file Sexual Orientation Not on file documented as of this encounter Last Filed Vital Signs Vital Sign Reading Time Taken Comments Blood Pressure 150/82 07/01/2021 10:15 AM CDT Pulse 62 07/01/2021 10:15 AM CDT Temperature - - Respiratory Rate - - Oxygen Saturation 98% 07/01/2021 10:15 AM CDT Inhaled Oxygen Concentration - - Weight 59 kg (130 lb) 07/01/2021 10:15 AM CDT Height 151.1 cm (4' 11.5 ) 07/01/2021 10:15 AM C DT Body Mass Index 25.82 07/01/2021 10:15 AM CDT documented in this encounter Progress Notes * Jillian Carolina MD - 07/01/2021 9:45 AM CDT [facility] Cardiology [facility] DATE OF VISIT: 07/01/2021 DATE: 1940 CHIEF COMPLAINT Chief Complaint Patient presents with ??? New Patient fainted twice and had a heart attack 03/2020 HPI Ni Neri is a 80 y.o. female whom I was asked to see at the request of Roxana Graham NP, for my advice and opinion regarding her syncope. History of MO. also hypertension, COPD, chronic backpain with spinal stenosis. Has been hospitalized for sepsis and also resp problems in last couple of years. 07/01/2021 Initial Office Consultation with Gemma: Here w/ son Andres. I'm not doing well. Doesn't feel good, tired all the time since heart attack, feels like she wants to go to sleep all the time. Used to be a workaholic. Weak, not walking well, afraid she will fall, staggers. She switch from so he did Dr. Yvette Brown and and has told Dr. Brown about her fatigue who recommended physica l therapy. Patient did not pursue this. She is not getting any better. She is also upset about the easy bruising of her arms. She related how surprise she was when she had her heart attack as she hadalways been told that she had a good heart but ???they lied.?? In addition, she has passed out twice. First one was five months ago, was sitting in kitchen then stood up, found self on floor, crawled to living room where she called her daughter, had a black eye.Second one about 2 weeks ago, went to get up, passed out, found self on floor. No prodrome for either. About 1 or 2 months ago while working in the [employer] ???it hit me.?? She suddenly felt like her legswere weak, she was lightheaded, and she needed to sat down or else she thought she might pass out. After sitting for while she felt better. No history of low blood pressure or slow heartbeats. No recurrent CP or neck and jaw pain. One month ago had pain in left arm w a little in chest and neck, went on for 3-4 days then went away. No history of racing heartbeats. Occasional skipped beats. No seizures or tongue biting, no urinary incontinence. Bruises easily. No known diagnosis of sleep apnea but she does have insomnia, being up and down allnight. She has had some depression and is she misses her , whom she mentioned several times during this visit. She was prescribed Lexapro by Roxana Graham but has not taken it as she does notwant to get ???hooked?? on it. Recently she was able to work in the [employer] for 6 hours a day for 2 days, with occasional wheezing but no chest pain. 04/15/2020 Note from [facility] vascular physician Dr. Merlin Nunez reviewed. She suffered an inferior MO (presenting primarily with neck and jaw pain) and was transferred to [facility]. She underwent so PCI with a Xience drug-eluting stent to the occluded proximal RCA, and also a stent in the PDA. 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 Office note from Quinn Graham 02/18/2021 reviewed, patient apparently was seen at [facility] for chest pain, rule out MO, discharged home. Unsteady on her feet. EKG today: NSR rate 63, left axis deviation, short PA interval without delta wave, nonspecific T-wave flattening common doubt any old MO by EKG. Social: Sienna in 12/2018. 4 children. MEDICAL HISTORY Past Medical History: Diagnosis Date ??? Arthritis ??? Asthma ??? COPD (chronic obstructive pulmonary disease) (CMS/HCC) (HCC) ??? Coronary artery disease ??? Depression ??? Head and neck cancer (CMS/HCC) (HCC) ??? HTN (hypertension) ??? Lung nodule ??? Myocardial infarction (CMS/HCC) (HCC) Social History Tobacco Use ??? Smoking status: Current Every Day Smoker Packs/day: 0.05 Years: 38.00 Pack years: 1.90 Types: Cigarettes Start date: 11/22/1980 ??? Smokeless tobacco: Never Used Vaping Use ??? Vaping Use: Never used Substance Use Topics ??? Alcohol use: Not on file ??? Drug use: Not Currently Family History Problem Relation Age of Onset ??? Pneumonia Mother ??? Cancer Father ??? Diabetes Father MEDICATIONS Current Outpatient Medications: ??? acetaminophen (TYLENOL) 325 mg tablet, Take 2 tablets (650 mg total) by mouth every 4 (four) hours as needed for pain, Disp: 30 tablet, Rfl: ??? albuterol HFA (PROAIR HFA) 90 mcg/actuation inhaler, Take 2 puffs by mouth 4 (four) times a day, Disp: , Rfl: ??? aspirin 81 mg enteric coated tablet, Take 1 tablet (81 mg total) by mouth daily, Disp: 30 tablet, Rfl: 11 ??? atorvastatin (LIPITOR) 40 mg tablet, Take 1 tablet (40 mg total) by mouth daily after dinner, Disp: 30 tablet, Rfl: 11 ??? busPIRone (BUSPAR) 10 mg tablet, Take 10 mg by mouth 2 (two) times a day , Disp: , Rfl: ??? cyclobenzaprine (FLEXERIL) 10 mg tablet, Take 10 mg by mouth 3 (three) times a day as needed for muscle spasms, Disp: , Rfl: ??? escitalopram (LEXAPRO) 20 mg tablet, TAKE 1 TABLET EVERY DAY BY ORAL ROUTE FOR 30 DAYS., Disp: , Rfl: ??? fluticasone propion-salmeteroL (ADVAIR DISKUS) 500-50 mcg/dose diskus inhaler, Inhale 1 puff 2 (two) times a day Rinse mouth with water after use. Do not swallow., Disp: , Rfl: ??? fluticasone propionate (FLONASE) 50 mcg/actuation nasal spray, Administer 1 spray into each nostril daily, Disp: , Rfl: ??? gabapentin ER (GRALISE) 600 mg tablet extended release 24 hr, Take 600 mg by mouth 3 (three) times a day , Disp: , Rfl: ??? ipratropium-albuteroL (DUO-NEB) 0.5-2.5 mg/3 mL nebulizer solution, 3 mL daily, Disp: , Rfl: ??? isosorbide mononitrate ER (IMDUR) 30 mg 24 hr tablet, Take 30 mg by mouth daily, Disp: , Rfl: ??? losartan (COZAAR) 50 mg tablet, Take 50 mg by mouth daily, Disp: , Rfl: ??? montelukast (SINGULAIR) 10 mg tablet, Take 10 mg by mouth nightly, Disp: , Rfl: ??? naloxone HCl (NARCAN NASL), Administer into affected nostril(s), Disp: , Rfl: ??? nitroglycerin (NITROSTAT) 0.4 mg SL tablet, Place 0.4 mg under the tongue every 5 (five) minutes as needed for chest pain, Disp: , Rfl: ??? omeprazole (PriLOSEC) 40 mg capsule, Take 40 mg by mouth daily, Disp: , Rfl: ??? oxyCODONE-acetaminophen (PERCOCET) 10-325 mg per tablet, Take 1 tablet by mouth every 4 (four) hours as needed, Disp: , Rfl: ??? pravastatin (PRAVACHOL) 40 mg tablet, Take 40 mg by mouth daily, Disp: , Rfl: ??? ranolazine ER (RANEXA) 500 mg 12 hr tablet, Take 500 mg by mouth 2 (two) times a day, Disp: , Rfl: ??? tiotropium (SPIRIVA) 18 mcg per inhalation capsule, Place 1 capsule into inhaler and inhale daily, Disp: , Rfl: ALLERGIES Allergies Allergen Reactions ??? Codeine Itching ??? Hydromorphone Stomach upset ??? Morphine Stomach upset ??? Sulfa (Sulfonamide Antibiotics) Stomach upset REVIEW OF SYSTEMS Review of Systems Constitutional: Positive for malaise/fatigue. HENT: Negative for congestion. Eyes: Negative for visual disturbance. Cardiovascular: Positive for palpitations and syncope. Negative for chest pain, dyspnea on exertionand leg swelling. Respiratory: Negative for shortness of breath and snoring. Hematologic/Lymphatic: Negative for bleeding problem. Gastrointestinal: Negative for abdominal pain. Genitourinary: Negative for hematuria. Neurological: Positive for weakness. Negative for dizziness. Psychiatric/Behavioral: Negative for depression. The patient has insomnia. PHYSICAL EXAM Blood pressure 150/82, pulse 62, height 151.1 cm (4' 11.5 ), weight 59 kg (130 lb), SpO2 98 %. Body mass index is 25.82 kg/m??. Physical Exam Constitutional: Appearance: She is well-developed. Comments: Patient wheelchair, accompanied by son, no distress Sitting BP 162/78 Standing 156/84 later 156/80 HENT: Head: Normocephalic and atraumatic. Mouth/Throat: Mouth: Mucous membranes are moist. Eyes: Extraocular Movements: Extraocular movements intact. Neck: Thyroid: No thyromegaly. Vascular: No carotid bruit. Cardiovascular: Rate and Rhythm: Normal rate and regular rhythm. Pulses: Carotid pulses are 2+ on the right side and 2+ on the left side. Heart sounds: Normal heart sounds. No murmur heard. Pulmonary: Effort: Pulmonary effort is normal. No respiratory distress. Breath sounds: Normal breath sounds. Abdominal: General: There is no distension. Palpations: Abdomen is soft. Musculoskeletal: General: No swelling. Skin: General: Skin is warm and dry. Neurological: Mental Status: She is alert and oriented to person, place, and time. Psychiatric: Mood and Affect: Mood is anxious and depressed. LABS AND OTHER DIAGNOSTIC TESTS Lab Results Component Value Date WBC 16.2 (H) 04/17/2020 HGB 11.4 (L) 04/17/2020 HCT 36.0 04/17/2020 MCV 89.8 04/17/2020 Chemistry Component Value Date/Time SODIUM 141 04/17/2020 0555 POTASSIUM 4.3 04/17/2020 0555 CHLORIDE 109 04/17/2020 0555 CO2 21 (L) 04/17/2020 0555 BUNSER 13 04/17/2020 0555 CREATININE 0.54 (L) 04/17/2020 0555 GLUCOSE 111 04/17/2020 0555 GLUCOSE 98 04/17/2020 0457 Component Value Date/Time CALCIUM 8.7 04/17/2020 0555 ALKPHOS 87 04/15/2020 0643 AST 47 (H) 04/15/2020 0643 ALT 16 04/15/2020 0643 BILITOT 0.2 04/15/2020 0643 Lab Results Component Value Date CHOL 135 04/15/2020 Lab Results Component Value Date GLUCOSE 111 04/17/2020 CALCIUM 8.7 04/17/2020 SODIUM 141 04/17/2020 POTASSIUM 4.3 04/17/2020 CO2 21 (L) 04/17/2020 CHLORIDE 109 04/17/2020 BUNSER 13 04/17/2020 CREATININE 0.54 (L) 04/17/2020 Lab Results Component Value Date HDL 49 04/15/2020 No results found for: LDL] Lab Results Component Value Date LDLCALC 57 04/15/2020 Lab Results Component Value Date TRIG 144 04/15/2020 Lab Results Component Value Date CHOLHDL 3 04/15/2020 Lab Results Component Value Date INR 1.54 (H) 09/12/2019 04/15/2020 total cholesterol 135, HDL 49, TG 144, LDL 57 06/05/2021 BUN 16, creatinine 0.56, potassium 4.6, glucose 82, hematocrit 39 02/20/2021 CT of the chest: CAD, left lower lobe nodule, stable interstitial changes of the lungs 02/18/2021 chest x-ray: Unremarkable. 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 With her history of MO, it is possible that these may be related to ventricular arrhythmias. She does mention 1 episode of near syncope which sounds vagal it so vagal, with a prodrome, and I see that vasovagal syncope is listed in her problem list so she may have had other episodes that I am not aware of. Not orthostatic today. Elliott arrhythmias possible but not likely. CAD, history of MO, right coronary stents: MO in March 2020 as above. Patient is not have any anginalsymptoms or SALGUERO so I suspect this problem is stable. Had mild LV dysfunction at the time. The patient is on nitrates and ranolazine for uncertain reasons as she has not expressed any problems with ongoing angina. EKG looks good, no old inferior MO by EKG. Weakness, fatigue, trouble walking: Use of the patient's main complaints which she relates to occurring since the MO. I doubt the related to her heart directly. To sounds like she can do yd work without any trouble so some of this may be related to depression and lack of motivation. Some may be dueto debilitation. Not sleeping well at night, she could have sleep apnea. She denied any neuropathy to me but she is taking gabapentin perhaps for some chronic back pain. Perhaps some of the fatigue is related to her polypharmacy as well. Hypertension: Not at goal today. Mixed hyperlipidemia: Taking pravastatin 40 mg daily. Lipids as above, at goal COPD Depression PLAN/RECOMMENDATIONS Discussed the various etiologies of his syncope with the patient. Reviewed the possibility of severe and even lethal heart rhythm problems with the patient, possible need for EP study, possible need for LifeVest etcetera. She does not want to proceed with a LifeVest at this time but will proceed with some evaluation. Thirty day monitor Echo to reassess LV function If any significant left ventricular dysfunction, consider EP referral to see if she has inducible ventricular tachycardia Requesting cardiac studies from Dr. Brown's office Okay to discontinue Plavix since it has been more than 1 year since the MO Perhaps we can discontinue ranolazine and isosorbide (and omepazole?) over the next few weeks/months Follow-up in 3 weeks to see nurse practitioner Marianela Mullen and reassess, then follow-up with meat a later time. Encouraged patient to follow-up with RECRUITING SCHEDULER Roxana Graham to pursue physical therapy and encouraged patient to try the Lexapro. Consider sleep study for excessive daytime sleepiness. Jillian Carolina MD, [facility] Cardiology Office: [phone] or [phone] Portions of the record may have been created with voice recognition MModal Fluency Direct Software.Cargo Inspector variances may occur. Despite proofreading, typographical errors may occur. Occasionalwrong-word or '[id number]' substitutions may have occurred due to the inherent limitations of voice recognition software. Read the chart carefully and recognize, using context, where substitutions have occurred. 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 07/01/2021 1:13 PM CDT Scheduled Orders Name Type Priority Associated Diagnoses Orde r Schedule MCT Mobile Cardiac Telemetry Event Monitor Cardiac Services Routine Syncope and collapse 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 H/O acute myocardial infarction of inferior wall Expected: 07/01/2021, Expires: 07/01/2022 documented as of this encounter Procedures Procedure Name Priority Date/Time Associated Diagnosis Comments ECG 12-LEAD Routine 07/01/2021 Syncope and collapse documented in this encounter Results * TRANSTHORACIC ECHO (TTE) COMPLETE W DOPPLER/CF WO CONTRAST (08/08/2021 1:56 PM CDT) Anatomical Region Laterality Modality Ultrasound 08/08/2021 12:4 8 PM CDT Narrative 08/08/2021 6:13 PM CDT [facility] Cardiology [address], [place] [address] [address], [place] [address] P:[phone] P:[phone] Echocardiographic Report Patient Name: NI NERI : 1940 Study Date: 08/08/2021 12:48:23 PM Gender: F Tech: Location: [place] Ref.Provider: JILLIAN CAROLINA Height(Cm): 150 BSA: 1.52 Weight(Kg): 57.61 Heart Rate: 58 BP: 140/63 Quality: Good Order Provider: JILLIAN CAROLINA Procedures: Echocardiographic Report: Transthoracic echocardiogram with complete 2D, M-Mode, and color Doppler examination. Indications: Coronary Artery Disease, and Syncope. Measurements: 2D/M Mode ?Doppler ? Measurement ?Value ?Normal Range ? Measurement ?Value ?Normal Range ? EF Mod ? 73 ?JESSIE ?2.36 ? [ 2.00 - 4.00 ] cm2 ? EF MM ?63 ? [ 55 - 70 ] % ?AV Mean PG ? 4 ?mmHg ? LVIDd MM ? 4.53 ? [ 3.90 - 5.30 ] cm ? AV Peak Herbert ?1.47 ? m/s ? LVIDs MM ? 3.00 ? [ 2.30 - 3.90 ] cm ? AV Peak PG ? 9 ?mmHg ? LVPWd MM ? 1.13 ? [ 0.60 - 1.00 ] cm ? AV VTI ? 0.31 ? cm ? IVSd MM ?1.13 ? [ 0.60 - 0.90 ] cm ? LVOT Diam ?2.02 ? [ 1.70 - 2.10 ] cm ? LA Dimension MM ?3.07 ? [ 2.70 - 3.80 ] cm ? LVOT Peak Herbert ?1.08 ? [ 0.70 - 1.10 ] m/s ? AoR Diam MM ?3.13 ? [ 2.60 - 3.70 ] cm ? LVOT VTI ? 0.23 ? cm ? LA Volume Index ?21.00 ?[ 16.00 - 28.00 ] cc/m2 ?MV E Peak Herbert ?0.59 ? [ 0.60 - 1.30 ] m/s ? ACS MM ? 1.20 ? cm ? MV A Peak Herbert ?0.87 ? [ 0.40 - 0.80 ] m/s ? MV Decel Time ?258 ?[ 150 - 200 ] msec ? PV Peak Herbert ?0.73 ? [ 0.40 - 0.80 ] m/s ? TR Peak Herbert ?3.12 ? [ 0.40 - 0.80 ] m/s ? TR Peak PG ? 39 ? mmHg ? RVSP ? 47.00 ?mmHg ? E' ? 0.10 ? E/E' ? 6 ? Findings: Interpretation Site: Exam was interpreted at [facility]. Left Ventricle: Normal left ventricular systolic function. No focal wall motion abnormalities. Normal left ventricular size. Mild concentric left ventricular hypertrophy. Impaired diastolic relaxation Grade I. Ejection fraction is measured at 73 %. Right Ventricle: Normal right ventricular size. Normal right ventricular systolic function. Left Atrium: The left atrium is normal in size. Right Atrium: The right atrium is normal in size. Atrial Septum: Normal atrial septum. Mitral Valve: Mitral valve leaflets appear mildly thickened. Mild mitral annular calcification. Mild mitral valve regurgitation. Aortic Valve: Aortic valve not well visualized. No evidence of hemodynamically significant aortic stenosis by Doppler. Peak gradient of 9.0 mmHg. Mean gradient of 4.0 mmHg. Valve area of 2.36 cm2. Aortic cusps appear mildly sclerotic. No aortic regurgitation. Tricuspid Valve: Normal appearance of the tricuspid valve. Moderate pulmonary hypertension based on right ventricular systolic pressure. Estimated peak RVSP is 47 mmHg. Mild to moderate tricuspid regurgitation. Pulmonic Valve: Pulmonic valve not well visualized. Pericardium: Pericardium not well visualized. Aorta: Normal aortic root. No aortic root dilation. Mild aortic root calcification. IVC: The IVC is not well visualized. Conclusions: Normal left ventricular systolic function. No focal wall motion abnormalities. Normal left ventricular size. Mild concentric left ventricular hypertrophy. Impaired diastolic relaxation Grade I. Ejection fraction is measured at 73 %. Aortic valve not well visualized. No evidence of hemodynamically significant aortic stenosis by Doppler. Peak gradient of 9.0 mmHg. Mean gradient of 4.0 mmHg. Valve area of 2.36 cm2. Aortic cusps appear mildly sclerotic. No aortic regurgitation. Normal appearance of the tricuspid valve. Moderate pulmonary hypertension based on right ventricular systolic pressure. Estimated peak RVSP is 47 mmHg. Mild to moderate tricuspid regurgitation. Normal sinus rhythm. Electronically Signed By: Nazia Isaacs MD 2021-08-08 18:13:21 CDT Procedure Note Tristen Isaacs MD - 08/08/2021 [facility] Cardiology [address], [place] [address] [address] [place] [address] P:[phone] P:[phone] Echocardiographic Report Patient Name: NI NERIPatient ID: [id number] : [id number] Date: 08/08/2021 12:48:23 PM Gender: FAccession #: [id number] Tech: GMLocation: [place] Ref.Provider: JILLIAN CAROLINAHeight(Cm): 150 BSA: 1.52Weight(Kg): 57.61 Heart Rate: 58BP: 140/63 Quality: GoodOrder Provider: JILLIAN CAROLINA Procedures: Echocardiographic Report: Transthoracic echocardiogram with complete 2D, M-Mode, and color Dopplerexamination. Indications: Coronary Artery Disease, and Syncope. Measurements: 2D/M Mode Doppler Measurement Value Normal Range MeasurementValue Normal Range EF Mod 73 AVA2.36 [ 2.00 - 4.00 ] cm2 EF MM 63 [ 55 - 70 ] % AV Mean PG 4mmHg LVIDd MM 4.53 [ 3.90 - 5.30 ] cm AV Peak Vel1.47 m/s LVIDs MM 3.00 [ 2.30 - 3.90 ] cm AV Peak PG 9mmHg LVPWd MM 1.13 [ 0.60 - 1.00 ] cm AV VTI0.31 cm IVSd MM 1.13 [ 0.60 - 0.90 ] cm LVOT Diam2.02 [ 1.70 - 2.10 ] cm LA Dimension MM 3.07 [ 2.70 - 3.80 ] cm LVOT Peak Vel1.08 [ 0.70 - 1.10 ] m/s AoR Diam MM 3.13 [ 2.60 - 3.70 ] cm LVOT VTI0.23 cm LA Volume Index 21.00 [ 16.00 - 28.00 ] cc/m2 MV E Peak Vel0.59 [ 0.60 - 1.30 ] m/s ACS MM 1.20 cm MV A Peak Vel0.87 [ 0.40 - 0.80 ] m/s MV Decel Akpk597 [ 150 - 200 ] msec PV Peak Vel0.73 [ 0.40 - 0.80 ] m/s TR Peak Vel3.12 [ 0.40 - 0.80 ] m/s TR Peak PG 39mmHg RVSP47.00 mmHg E'0.10 E/E' 6 Findings: Interpretation Site: Exam was interpreted at [facility]. Left Ventricle: Normal left ventricular systolic function. No focal wall motionabnormalities. Normal left ventricular size. Mild concentric left ventricular hypertrophy.Impaired diastolic relaxation Grade I. Ejection fraction is measured at 73 %. Right Ventricle: Normal right ventricular size. Normal right ventricular systolicfunction. Left Atrium: The left atrium is normal in size. Right Atrium: The right atrium is normal in size. Atrial Septum: Normal atrial septum. Mitral Valve: Mitral valve leaflets appear mildly thickened. Mild mitral annularcalcification. Mild mitral valve regurgitation. Aortic Valve: Aortic valve not well visualized. No evidence of hemodynamicallysignificant aortic stenosis by Doppler. Peak gradient of 9.0 mmHg. Mean gradient of 4.0 mmHg.Valve area of 2.36 cm2. Aortic cusps appear mildly sclerotic. No aortic regurgitation. Tricuspid Valve: Normal appearance of the tricuspid valve. Moderate pulmonary hypertensionbased on right ventricular systolic pressure. Estimated peak RVSP is 47 mmHg. Mild tomoderate tricuspid regurgitation. Pulmonic Valve: Pulmonic valve not well visualized. Pericardium: Pericardium not well visualized. Aorta: Normal aortic root. No aortic root dilation. Mild aortic rootcalcification. IVC: The IVC is not well visualized. Conclusions: Normal left ventricular systolic function. No focal wall motionabnormalities. Normal left ventricular size. Mild concentric left ventricular hypertrophy.Impaired diastolic relaxation Grade I. Ejection fraction is measured at 73 %. Aortic valve not well visualized. No evidence of hemodynamicallysignificant aortic stenosis by Doppler. Peak gradient of 9.0 mmHg. Mean gradient of 4.0 mmHg.Valve area of 2.36 cm2. Aortic cusps appear mildly sclerotic. No aortic regurgitation. Normal appearance of the tricuspid valve. Moderate pulmonary hypertensionbased on right ventricular systolic pressure. Estimated peak RVSP is 47 mmHg. Mild tomoderate tricuspid regurgitation. Normal sinus rhythm. 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 Weakness Other malaise and fatigue Other emphysema (HCC) Other emphysema Essential hypertension Unspecified essential hypertension Mixed hyperlipidemia Depressive disorder Depressive disorder, not elsewhere classified Syncope and collapse 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 documented in this encounter Discontinued Medications Medication Sig Discontinue Reason Start Date End Da te busPIRone (BUSPAR) 10 mg tablet Take by mouth every 12 hours Duplicate order 02/06/2020 07/01/2021 ipratropium-albuteroL (COMBIVENT RESPIMAT) 20-100 mcg/actuation inhalerIndications:Chronic Obstructive Pulmonary Disease with Bronchospasms Inhale 1 puff 4 (four) times a day Alternate therapy 07/01/2021 losartan-hydroCHLOROthiazi de (HYZAAR) 50-12.5 mg per tablet Take 1 tablet by mouth daily Therapy completed 07/01/2021 ticagrelor (BRILINTA) 90 mg tablet Take 1 tablet (90 mg total) by mouth 2 (two) times a day Therapy completed 04/17/2020 07/01/2021 clopidogreL (PLAVIX) 75 mg tablet Take 75 mg by mouth daily 06/19/2021 07/01/2021 documented as of this encounter Historical Medications * This list may reflect changes made after this encounter. oxyCODONE-acetamino phen (PERCOCET) 10-325 mg per tabletIndications:P ain Take 1 tablet by mouth every 4 (four) hours as needed omeprazole (PriLOSEC) 40 mg capsule Take 1 capsule (40 mg total) by mouth daily naloxone HCl (NARCAN NASL) Administer into affected nostril(s) escitalopram (LEXAPRO) 20 mg tablet TAKE 1 TABLET EVERY DAY BY ORAL ROUTE FOR 30 DAYS. 06/05/2021 tiotropium (SPIRIVA) 18 mcg per inhalation capsule Place 1 capsule into inhaler and inhale daily 3 ranolazine ER (RANEXA) 500 mg 12 hr tablet Take 500 mg by mouth 2 (two) times a day pravastatin (PRAVACHOL) 40 mg tablet Take 40 mg by mouth daily 1 nitroglycerin (NITROSTAT) 0.[address] 0.4 mg under the tongue every 5 (five) minutes as needed for chest pain 2 montelukast (SINGULAIR) 10 mg tablet Take 10 mg by mouth nightly 3 losartan (COZAAR) 50 mg tablet Take 50 mg by mouth daily 2 isosorbide mononitrate ER (IMDUR) 30 mg 24 hr tablet Take 30 mg by mouth daily 1 ipratropium-albuter oL (DUO-NEB) 0.5-2.5 mg/3 mL nebulizer solution 3 mL daily 3 ipratropium-albuter oL (COMBIVENT RESPIMAT) 20-100 mcg/actuation inhalerIndications: Chronic Obstructive Pulmonary Disease with Bronchospasms Inhale 1 puff 4 (four) times a day 1 fluticasone propionate (FLONASE) 50 mcg/actuation nasal spray Administer 1 spray into each nostril daily 3 cyclobenzaprine (FLEXERIL) 10 mg tablet Take 10 mg by mouth 3 (three) times a day as needed for muscle spasms 3 clopidogreL (PLAVIX) 75 mg tablet Take 75 mg by mouth daily 06/19/2021 1 busPIRone (BUSPAR) 10 mg tablet Take by mouth every 12 hours 02/06/2020 1 fluticasone propion-salmeteroL (ADVAIR DISKUS) 500-50 mcg/dose diskus inhaler Inhale 1 puff 2 (two) times a day Rinse mouth with water after use. Do not swallow. 3 added in this encounter Orders Outpatient Referral Count Last Ordered Date Fir st Ordered Date AMB REFERRAL TO CARDIOLOGY 1 07/10/2021 documented in this encounter Care Teams Technical Artist Relationship Specialty Start Date End Date Roxana Graham NP [facility] [place] [address] PCP - General Nurse Practitioner 07/01/21 12/28/22 Merlin Nunez MD Consulting Physician Cardiovascular Disease 04/17/20 documented as of this encounter
--- OUTSIDE RECORDS SUMMARY | 2024-12-08 03:47 | XMS_ITS | Encounter Summary ---
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 Procedures MCT Mobile Cardiac Telemetry Event Monitor Jillian Menendez MD Phone: tel: fax: Referral ID Status Reason Start Date Expiration Date Visits Re quested Visits Authorized [id number] Closed 07/01/2021 07/31/2022 1 1 Encounter Details Date Type Department Care Team (Latest Contact Info) Description 07/01/2021 10:30 AM CDT Ancillary Procedure [facility] Cardiology [address] [place] [address] Syncope and collapse; Coronary artery disease involving [place] coronary artery of [place] heart without angina pectoris; H/O acute myocardial infarction of inferior wall Social History Tobacco Use Types Packs/Day Years Used Date Smoking Tobacco: Every Day Cigarettes 0.1 44 Started: 11/22/1980 Smokeless Tobacco: Never Comments Unknown Sex and Gender Information Value Date Recorded Sex Assigned at Not on file Legal Sex Female 7:12 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 Ordering Physician Dr. Jillian Menendez. Type of Monitor A 30-day event monitor. Findings The patient was monitored for 16 hours and 26 minutes. The average heart rate was 69 beats per minute with a minimum heart rate 50 beats per minute and maximum heart rate 118 beats per minute. No atrial fibrillation, supraventricular tachycardia, ventricular tachycardia, or significant heart pausesor blocks. The total burden of PVCs was less than 1% and the total burden of premature atrial contractions was 1%. The patient was asymptomatic during the monitoring. Conclusion Although a prescription for 30-day event monitor was given to the patient, only 16 hours of monitoring time was provided. No significant arrhythmias seen and no reported symptoms during this monitoring. 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
--- OUTSIDE RECORDS SUMMARY | 2024-12-08 03:47 | XMS_ITS | Encounter Summary ---
Author Organization [facility] Address [address] [place] [address] Care Team Providers Care Director Clinical Information Services Name Role Phone Merlin Nunez MD Unavailable [phone] Micaela Sabillon NP Primary Care Provider [phone] Reason for Visit * Reason Comments Follow-up 6 mo Encounter Details Date Type Department Care Team (Latest Contact Info) Description 12/29/2022 11:15 AM PULP PILER Office Visit [facility] Cardiology [address] [facility] [address] [place] [address] Jillian Menendez MD [address] [facility] [address] [place] [address] Paroxysmal atrial fibrillation (CMS/HCC) (HCC) (Primary Dx); PSVT (paroxysmal supraventricular tachycardia) (CMS/HCC) (HCC); Syncope and collapse; Coronary artery disease involving [place] coronary artery of [place] heart without angina pectoris; Mixed hyperlipidemia; Essential hypertension; PAD (peripheral artery disease) (CMS/HCC) (HCC) Social History Tobacco Use Types Packs/Day Years Used Date Smoking Tobacco: Every Day Cigarettes 0.1 44 Started: 11/22/1980 Smokeless Tobacco: Never Tobacco Cessation:Ready to Q uit: Not Asked; Counseling Given: Not Answered Comments Unknown Sex and Gender Information Value Date Recorded Sex Assigned at Not on file Legal Sex Female 7:12 PM PULP PILER Gender Identity Not on file Sexual Orientation Not on file documented as of this encounter Last Filed Vital Signs Vital Sign Reading Time Taken Comments Blood Pressure 126/74 12/29/2022 12:09 PM PULP PILER Pulse 54 12/29/2022 12:09 PM PULP PILER Temperature - - Respiratory Rate - - Oxygen Saturation 98% 12/29/2022 12:09 PM PULP PILER Inhaled Oxygen Concentration - - Weight 53.5 kg (118 lb) 12/29/2022 12:09 PM PULP PILER Height 149.9 cm (4' 11 ) 12/29/2022 12:09 PM PULP PILER Body Mass Index 23.83 12/29/2022 12:09 PM PULP PILER documented in this encounter Progress Notes * Jillian Menendez MD - 12/29/2022 11:15 AM CST [facility] Cardiology [facility] DATE OF VISIT: 12/29/2022 DATE: 1941 CHIEF COMPLAINT Chief Complaint Patient presents with ??? Follow-up 6 mo FU CAD, syncope HPI Ni Neri is a 82 y.o. female with a history of inferior NJ and stent to the RCA and PDA in 03/2020. Also history of paroxysmal AFib, brief PSVT, syncope, hypertension, hyperlipidemia, COPD, asymptomatic PAD (70% stenosis of the right common iliac), chronic back pain with spinal stenosis. Hasbeen hospitalized for sepsis and also resp problems in last couple of years. 04/15/2020 She suffered an inferior NJ (presenting primarily with neck and jaw pain) and was transferred to [facility]. She underwent so PCI by Dr. Merlin Nunez with a Xience drug-eluting stent to the occluded proximal RCA, and also a stent in the PDA. 70% stenosis of the right common iliac was noted and the patient had preserved LV systolic function with inferior wall hypokinesis. 07/01/2021 Initial Office Consultation with Gemma: Here w/ son Andres. I'm not doing well. Doesn't feel good, tired all the time since heart attack, feels like she wants to go to sleep all the time. Used to be a workaholic. Weak, not walking well, afraid she will fall, staggers. She is not getting any better. She is also upset about the easy bruising of her arms. She related how surprise she was when she had her heart attack as she had always been told that she had a good [...] 2 months ago while working in the [employer] ???it hit me.?? She suddenly felt like her legswere weak, she was lightheaded, and she needed to sat down or else she thought she might pass out. After sitting for while she felt better. I was concerned about the episodes of syncope which had no prodrome and recommended an echo and a thirty day monitor. 07/22/2021 office visit with CARRIE Mullen: She returns to the office today accompanied by her son. She states she was unable to wear the event monitor and she brought it back with her today. The best explanation I can understand she felt it was technically too complicated for her to figure out how towear it. Shortly after her last visit here she had a fall but it was not syncopal: She was walking up the basement stairs, grabbed on to the railing and the railing fell out of the wall and she fell backward. Main complaint continues to be that she is not steady on her feet and her legs have been weak ever since her heart attack. Her other major concern is fear being off the Plavix and she wants to restart it. 01/01/2022 office visit with CARRIE Mullen: She had another syncopal episode 2 weeks ago. She was seated at the toilet and felt lightheaded and flushed. She intended to get and get to her bed but then found herself down on the floor because she passed out after standing up from the toilet. She continues to feel unsteady on her feet and her pain management provider his told her it is related to her back but she said she did not have the problem prior to her NJ in March 2020. She bruises easily. She continues to smoke. She has a high level of personal stress right now because her son is actively dying from metastatic lung cancer. 01/27/2022 office visit with CARRIE Mullen: She returns to the office today accompanied by her youngerson. See telephone note dated 01/26/2022 for description of her recent chest pain that brought her to the office today. She has not really had the pain today. She again mentions being under emotional stress from her son dying of cancer. Her younger son who is with her today, notes that her chest pain began after seeing her ill son over the weekend. Patient also mentions that she has periods of time where her fingers and toes feel very cold and she has noticed color changes either very white or purple. She still has the event monitor patch in place and has not had any further episodes of syncope. 05/13/[address] Menendez: My heart's ok but I can hardly walk. Some CP on right side in February, didn't feel like old NJ, Roxana Graahm did an EKG and sent her to the ER, had pneumonia and was told she was anemic. Hospitalization reviewed , labs as below. Looses balance but no faining or near fainting. No SALGUERO, edema, palpitations but does bruise easily but no bleeding. LE weakness,numbness (no pain), MRI this month showed severe lumbar spondylosis. Needs to hold on to things to walk. Allergies, phlegm and rhinorrhea. Recent blood tests good. Hands get cold and fingers turn dark. Loosing weight; lost 40+ pounds over the past 2 years. Had COVID last August, still can't taste or smell. Tired a lot, used to be a workaholic, unhappy w/ her current poor level of fxn. Son 2 months ago of cancer, age 62. Patient is very sad about the loss of her son and inthe last few years. Event monitor 12/2021 showed episodes of a atrial fibrillation, controlled heart rate, and brief PSVT as below. Started on Xarelto. 06/18/2022 office visit with CARRIE Mullen: Xarelto was started at the last visit. She returns today with her son for follow-up. She continues to have problems with her back pain and weakness in the legs. Her pain management doctor repeated an MRI which showed that the spine is worse and wants her to see a neurosurgeon. She has questions about her surgical risk from a cardiac standpoint. 12/29/[address] Menendez: Here w/ son Andres. Can't afford Xarelto, relies on samples. Occ brief palps, no CP, swelling, bleeding. Has weak spells like last night, just didn't feel right, weak, felt weird, blurred vision--BP high last night 160's, HR 60's, , BS was a little high. Feels better today but wouldn't want to drive a car. Has spells where her body gets chilled, fingertips turn dark, hands cold. Legs are terrible , not much feeling below the knee. H/O back problems and neuropathy, wishes she could walk better. Has wrinkled skin, wonders if heart pills cause this. Every night she worries that she might have another heart attack. Social: [place] in 12/2018. 4 children but oldest son fr cancer 2021 age 62. MEDICAL HISTORY Past Medical History: Diagnosis Date ??? Arthritis ??? Asthma ??? Chronic back pain ??? COPD (chronic obstructive pulmonary disease) ([facility]) ([facility]) ??? Coronary artery disease ??? Depression ??? Head and neck cancer (CMS/[facility]) ([facility]) ??? HTN (hypertension) ??? Kidney stones ??? Lung nodule ??? Mixed hyperlipidemia ??? Myocardial infarction (CMS/HCC) ([facility]) 03/2020 Occluded proximal RCA, stent proximal RCA, stent PDA, Dr. Li, [facility] Social History Tobacco Use ??? Smoking status: Every Day Packs/day: 0.05 Years: 38.00 Pack years: 1.90 Types: Cigarettes Start date: 11/22/1980 ??? Smokeless tobacco: Never Substance and Sexual Activity ??? Drug use: Not Currently ??? Sexual activity: None Alcohol Use: Not on file Family History Problem Relation Age of Onset ??? Pneumonia Mother ??? Cancer Father ??? Diabetes Father MEDICATIONS Current Outpatient Medications: ??? acetaminophen (TYLENOL) 325 mg tablet, Take 2 tablets (650 mg total) by mouth every 4 (four) hours as needed for pain, Disp: 30 tablet, Rfl: ??? albuterol HFA (PROVENTIL HFA,VENTOLIN HFA,PROAIR HFA) 90 mcg/actuation inhaler, Take 2 puffs bymouth 4 (four) times a day, Disp: , Rfl: ??? ergocalciferol (VITAMIN D) 50,000 unit capsule, TAKE 1 CAPSULE BY MOUTH ONCE WEEKLY X12 WEEKS THEN RECHECK BLOOD LEVELS, Disp: , Rfl: ??? escitalopram (LEXAPRO) 20 [...] each nostril daily, Disp: , Rfl: ??? losartan (COZAAR) 50 mg tablet, TAKE 1 TABLET BY MOUTH EVERY DAY, Disp: 90 tablet, Rfl: 1 ??? montelukast (SINGULAIR) 10 mg tablet, Take 10 mg by mouth nightly, Disp: , Rfl: ??? nitroglycerin (NITROSTAT) 0.4 mg SL tablet, Place 1 tablet (0.4 mg total) under the tongue every 5 (five) minutes as needed for chest pain, Disp: 25 tablet, Rfl: 3 ??? omeprazole (PriLOSEC) 40 mg capsule, Take 40 mg by mouth daily, Disp: , Rfl: ??? oxyCODONE-acetaminophen (PERCOCET) 10-325 mg per tablet, Take 1 tablet by mouth every 4 (four) hours as needed, Disp: , Rfl: ??? pravastatin (PRAVACHOL) 40 mg tablet, TAKE 1 TABLET BY MOUTH EVERY DAY, Disp: 90 tablet, Rfl: 3 ??? rivaroxaban (Xarelto) 20 mg tablet, Take 1 tablet (20 mg total) by mouth daily, Disp: 14 tablet, Rfl: 0 ??? busPIRone (BUSPAR) 10 mg tablet, Take 10 mg by mouth 2 (two) times a day (Patient not taking: Reported on 05/13/2022), Disp: , Rfl: ??? cyclobenzaprine (FLEXERIL) 10 mg tablet, Take 10 mg by mouth 3 (three) times a day as needed for muscle spasms (Patient not taking: Reported on 05/13/2022), Disp: , Rfl: ??? gabapentin ER (GRALISE) 600 mg tablet extended release 24 hr, Take 600 mg by mouth 3 (three) times a day (Patient not taking: Reported on 05/13/2022), Disp: , Rfl: ??? ipratropium-albuteroL (DUO-NEB) 0.5-2.5 mg/3 mL nebulizer solution, 3 mL daily (Patient not taking: Reported on 05/13/2022), Disp: , Rfl: ??? naloxone HCl (NARCAN NASL), Administer into affected nostril(s) (Patient not taking: Reported on 05/13/2022), Disp: , Rfl: ??? tiotropium (SPIRIVA) 18 mcg per inhalation capsule, Place 1 capsule into inhaler and inhale daily (Patient not taking: Reported on 05/13/2022), Disp: , Rfl: ALLERGIES Allergies Allergen Reactions ??? Codeine Itching ??? Hydromorphone Stomach upset ??? Morphine Stomach upset ??? Sulfa (Sulfonamide Antibiotics) Stomach upset REVIEW OF SYSTEMS Review of Systems Constitutional: Positive for malaise/fatigue and weight loss. HENT: Negative for congestion. Eyes: Negative for visual disturbance. Cardiovascular: Positive for palpitations and syncope. Negative for chest pain, dyspnea on exertionand leg swelling. Respiratory: Negative for shortness of breath and snoring. Hematologic/Lymphatic: Negative for bleeding problem. Bruises/bleeds easily. Musculoskeletal: Positive for back pain. Gastrointestinal: Negative for abdominal pain and hematochezia. Genitourinary: Negative for hematuria. Neurological: Positive for light-headedness, paresthesias (legs and feet) and weakness. Negative for dizziness. Psychiatric/Behavioral: Negative for depression. The patient has insomnia and is nervous/anxious. PHYSICAL EXAM Blood pressure 126/74, pulse 54, height 149.9 cm (4' 11 ), weight 53.5 kg (118 lb), SpO2 98 %. Body mass index is 23.83 kg/m??. Physical Exam Constitutional: Appearance: Normal appearance. She is well-developed. Comments: Well-groomed older lady, NAD Feet and hands are warm, not discolored. HENT: Head: Normocephalic and atraumatic. Mouth/Throat: Mouth: Mucous membranes are moist. Eyes: Extraocular Movements: Extraocular movements intact. Neck: Thyroid: No thyromegaly. Vascular: No carotid bruit. Cardiovascular: Rate and Rhythm: Normal rate and regular rhythm. Heart sounds: Normal heart sounds. No murmur heard. Pulmonary: Effort: Pulmonary effort is normal. No respiratory distress. Abdominal: General: There is no distension. Palpations: Abdomen is soft. Musculoskeletal: General: No swelling. Skin: General: Skin is warm and dry. Neurological: Mental Status: She is alert and oriented to person, place, and time. Psychiatric: Mood and Affect: Mood is anxious and depressed. LABS AND OTHER DIAGNOSTIC TESTS Lab Results Component Value Date WBC 9.1 06/24/2022 HGB 12.6 06/24/2022 HCT 39.4 06/24/2022 MCV 86 06/24/2022 Chemistry Component Value Date/Time SODIUM 141 04/17/2020 [...] 0.56, potassium 4.6, glucose 82, hematocrit 39 03/11/2022 creatinine 0.6, GFR greater than 60, hematocrit 31, iron 37,% sat is 17%, proBNP 312, norecent lipids available. 05/2022 chol 124, HDL 55, TRG 128, LDL 44 Cardiac testin07/2021 Echo: EF 73%, mild LVH, diast dysfxn, mild to mod TR, RVSP 47 mmHg 12/2019: 30 day monitor: Paroxysmal AFib, 5% burden, average heart rate 62 (range 50-124), 12 runs of SVT the longest being for 40 seconds at 155 beats per minute. Symptoms correlated with sinus rhythm and tachycardia, APCs, atrial couplets and IVCD. Other testin02/20/2021 CT of the chest: CAD, left lower lobe nodule, stable interstitial changes of the lungs 02/18/2021 chest x-ray: Unremarkable. ASSESSMENT Diagnoses and all orders for this visit: Paroxysmal atrial fibrillation ([facility]) ([facility]) (Primary) PSVT (paroxysmal supraventricular tachycardia) ([facility]) ([facility]) Syncope and collapse Coronary artery disease involving [place] coronary artery of [place] heart without angina pectoris Mixed hyperlipidemia Essential hypertension PAD (peripheral artery disease) ([facility]) ([facility]) PLAN/RECOMMENDATIONS Paroxysmal atrial fibrillation: 5% burden on monitoring 2019. Has palpitations what her symptoms generally do not occur with her atrial fibrillation. Not on any rate-controlling med; HR in a fib was in 60's for the most part. --Discussed changing to warfarin since Xarelto is expensive --Pt prefers to continue Xarelto, on appropriate dose. PSVT: Brief episodes up to 40 seconds, asymptomatic but at RVR. Syncope: 4 episodes of syncope. Thirty day monitor did not show any Elliott arrhythmias, V-tach or pauses. No recent episodes. Usually PSVT does not cause syncope. She has normal LV fxn so ventricular arrhythmias are unlikely. May relate to her episodic weak spells. Wonder if she has low BP at times? However\ she notes high BP asso w/ these spells. No recent syncope.. --Loop recorder if recurrence? CAD, history of NJ: NJ in March 2020, status post RCA stent. Normal systolic function by echo. No angina. --Cont secondary prevention with Xarelto, statin Hypertension: At goal today. --Cont losartan Mixed hyperlipidemia: Lipids as above, at goal --Cont pravastatin Anemia: Mildly anemic in February, appears to have some mild iron deficiency. No overt GI bleeding. May complicate use of anticoagulants, but she has tolerated aspirin and clopidogrel in the past. Beingaddressed--pt reports taking a pill once a week for this (?). PAD: 70% right iliac stenosis noted at the time of cardiac catheterization. I do not think she has claudication. She does have diminished pulses on the left foot but her feet are warm. Sounds like she may have a neuropathy. She complains of her hands and feet getting cold and turning color but thismay simply be a reaction to cold temperatures or perhaps Raynaud's but I doubt is due to poor circulation. Weakness, fatigue, trouble walking: Probably from severe spinal spondylosis. COPD: Has inhalers regularly. Depression and Anxiety: --Reassurance. Requested labs fr PCP FU in 6 months with BELT NOTCHER Marianela Menendez MD, [facility] Cardiology Office: [phone] or [phone] Portions of the record may have been created with voice recognition threadsy Direct Software.[employer] variances may occur. Despite proofreading, typographical errors may occur. Occasionalwrong-word or '[id number]' substitutions may have occurred due to the inherent limitations of voice recognition software. Read the chart carefully and recognize, using context, where substitutions have occurred. PILER documented in this encounter Plan of Treatment Not on file documented as of this encounter Visit Diagnoses Diagnosis Paroxysmal atrial fibrillation (CMS/HCC) (HCC)- Primary Atrial fibrillation PSVT (paroxysmal supraventricular tachycardia) ([facility]) Paroxysmal supraventricular tachycardia Syncope and collapse Coronary artery disease involving [place] coronary artery of [place] heart without angina pectoris Mixed hyperlipidemia Essential hypertension Unspecified essential hypertension PAD (peripheral artery disease) ([facility]) Unspecified peripheral vascular disease documented in this encounter Historical Medications * This list may reflect changes made after this encounter. ergocalciferol (VITAMIN D) 50,000 unit capsule TAKE 1 CAPSULE BY MOUTH ONCE WEEKLY X12 WEEKS THEN RECHECK BLOOD LEVELS 12/04/2022 added in this encounter Care Teams Director Clinical Information Services Relationship Specialty Start Date End Date Micaela Sabillon NP PCP - General Nurse Practitioner 12/29/22 11/29/23 Merlin Nunez MD Consulting Physician Cardiovascular Disease 04/17/20 documented as of this encounter
--- OUTSIDE RECORDS SUMMARY | 2024-12-08 03:47 | XMS_ITS | Encounter Summary ---
Author Organization [facility] Address [address] [place] [address] Care Team Providers Care Emergency Department Clinician Name Role Phone Merlin Nunez MD Unavailable [phone] Roxana Graham NP Primary Care Provider [phone] Reason for Visit * Cardiology (Routine) - Closed Specialty Diagnoses / Procedures Referred By Jong santos Referred To Contact Diagnoses Syncope and collapse Procedures Event Monitor, 30 Day Event Marianela Mullen NP [address] [address] Phone: tel: fax: Referral ID Status Reason Start Date Expiration Date Visits Re quested Visits Authorized [id number] Closed 01/01/2022 01/31/2023 1 1 Encounter Details Date Type Department Care Team (Latest Contact Info) Description 01/05/2022 2:30 PM DIRECTOR UNDERWRITER SALES Ancillary Procedure [facility] Cardiology [address] [id number] Syncope and collapse Social History Tobacco Use Types Packs/Day Years Used Date Smoking Tobacco: Every Day Cigarettes 0.1 44 Started: 11/22/1980 Smokeless Tobacco: Never Comments Unknown Sex and Gender Information Value Date Recorded Sex Assigned at Not on file Legal Sex Female 7:12 PM DIRECTOR UNDERWRITER SALES Gender Identity Not on file Sexual Orientation Not on file documented as of this encounter Procedure Notes * Armando Fry MD - 01/05/2022 12:00 AM CST 30 DAY HYDROMETER CALIBRATOR INDICATIONS Syncope and collapse. ORDERING PHYSICIAN Dr. Mark. TIME MONITORED 17 days 8 hours and 17 minutes. PRESCRIPTION . BASELINE DATE 01/05/2022. END DATE 02/03/2020. Underlying normal sinus rhythm with intermittent episodes of atrial fibrillation. Heart rate variability between 50 and 155 beats per minute with an average heart rate of 66 beats per minute. A total of 56 events were transmitted with 5 patient-triggered events, 51 auto- triggered events. Atrial fibrillation occurred 127 times with heart rate variability between 50 and 124 beats per minutewhile in atrial fibrillation with an average heart rate of 62 beats per minute. Longest episode of atrial fibrillation being 1 hour 10 minutes. Total time in atrial fibrillation being 17 hours and 7 minutes with a total burden of 5%. Supraventricular tachycardia also occurred 12 times with the fastest run being at a rate of 155 beats per minute, the longest episode lasting for 40 seconds at a rate of 125 beats per minute. Occasional supraventricular ectopy totaling 10,313 beats which is 1% ectopic burden. Low frequency ventricular ectopy totaling 3158 beats which is 1% ectopic burden. No significant pauses, heart block or ventricular tachycardia. Five patient-triggered events were recorded. Patient-triggered event of symptom other than listed correlated to the baseline transmission revealing sinus rhythm heart rate 69 beats per minute. Another symptom other than listed correlated to sinus tachycardia with PAC at a rate of 123 beats per minute. Chest pain correlated to sinus rhythm, IVCD, atrial couplets and PACs at a heart rate of 94 beats per minute. Another episode of chest pain correlated to sinus rhythm only with a heart rate of 61 beats per minute and another episode of chest pain correlated to sinus rhythm, IVCD and a premature atrial contraction. CONCLUSION 1. Underlying normal sinus rhythm with intermittent episodes of atrial fibrillation. Heart rate variability as detailed above with an average heart rate overall of 66 beats per minute. 2. 5% atrial fibrillation burden. 127 episodes of atrial fibrillation with the longest episode being 1 hour and 10 minutes. Heart rate variability while in AFib between 50 and 124 beats per minute with average heart rate of 62 beats per minute. Total time in atrial fibrillation being 17 hours and 7minutes. 3. Low frequency ventricular and supraventricular ectopy otherwise. 4. Frequent episodes of supraventricular tachycardia. There were a total of 12 runs of SVT with thefastest run being at a rate of 155 beats per minute. Longest duration being for 40 seconds. 5. Symptom events as detailed above correlating to sinus rhythm or sinus tachycardia with PACs, atrial couplets and IVCD. Job ID/Internal Job ID: [id number] documented in this encounter Plan of Treatment Pending Results Name Type Priority Associated Diagnoses Date /Time Event Monitor, 30 Day Event Cardiac Services Routine Syncope and collapse 01/05/2022 1:31 PM DIRECTOR UNDERWRITER SALES documented as of this encounter Visit Diagnoses Diagnosis Syncope and collapse documented in this encounter Care Teams Emergency Department Clinician Relationship Specialty Start Date End Date Roxana Graham NP [address] [place] [address] [place] [address] PCP - General Nurse Practitioner 07/01/21 12/28/22 Merlin Nunez MD Consulting Physician Cardiovascular Disease 04/17/20 documented as of this encounter
--- OUTSIDE RECORDS SUMMARY | 2024-12-08 03:47 | XMS_ITS | Encounter Summary ---
Author Organization [facility] Address [address] [place] [address] Care Team Providers Care Senior C Software Engineer Name Role Phone Merlin Nunez MD Unavailable [phone] Roxana Graham NP Primary Care Provider [phone] Reason for Visit * Reason Comments Follow-up 3 mo Encounter Details Date Type Department Care Team (Latest Contact Info) Description 05/13/2022 2:30 PM CDT Office Visit [facility] Cardiology [address] [facility] [address] [place] [address] Jillian Menendez MD [address] [facility] [address] [place] [address] Paroxysmal atrial fibrillation (CMS/HCC) (HCC) (Primary Dx); PSVT (paroxysmal supraventricular tachycardia) (CMS/HCC) (HCC); Syncope and collapse; Coronary artery disease involving modoc coronary artery of modoc heart without angina pectoris; H/O acute myocardial infarction of inferior wall; Mixed hyperlipidemia; Essential hypertension; Other iron deficiency anemia; PAD (peripheral artery disease) (CMS/HCC) (HCC); Other emphysema (CMS/HCC) (HCC); Depressive disorder; Spinal stenosis of lumbar region without neurogenic claudication; Decreased ambulation status Social History Tobacco Use Types Packs/Day Years Used Date Smoking Tobacco: Every Day Cigarettes 0.1 44 Started: 11/22/1980 Smokeless Tobacco: Never Comments Unknown Sex and Gender Information Value Date Recorded Sex Assigned at Not on file Legal Sex Female 7:12 PM [employer] Gender Identity Not on file Sexual Orientation Not on file documented as of this encounter Last Filed Vital Signs Vital Sign Reading Time Taken Comments Blood Pressure 148/76 05/13/2022 4:08 PM CDT Pulse 61 05/13/2022 3:03 PM CDT Temperature - - Respiratory Rate - - Oxygen Saturation 99% 05/13/2022 3:03 PM CDT Inhaled Oxygen Concentration - - Weight 52.2 kg (115 lb) 05/13/2022 3:03 PM CDT Height 149.9 cm (4' 11 ) 05/13/2022 3:03 PM CDT Body Mass Index 23.23 05/13/2022 3:03 PM CDT documented in this encounter Patient Instructions * Patient Instructions* Jillian Menendez MD - 05/13/2022 3:58 PM CDT Your monitor did not show any thing that would cause passing out -- no slow heart beats or pauses. But if you have more spells of passing out, let me know. The monitor showed quick runs of fast heartbeats which would last for a few seconds called SVT (supraventricular tachycardia). These are not a big problem but can cause a sensation of palpitations. More importantly or monitor showed episodes of atrial fibrillation which is an irregular heartbeat.When people have atrial fibrillation they can get blood clots in the heart which can get loose and go to the brain leading to a stroke. To prevent this, we recommend using anticoagulant such as Xarelto, Eliquis, Pradaxa or warfarin. We will start Xarelto at 20 mg daily but if that is too expensive we may need to switch to warfarin, which is a brand name medicine and in expensive. However warfarinwould need to have blood test about once a month to monitor the dosing. Stop the aspirin and clopidogrel. Start Xarelto 20 mg daily with food, at suppertime. We will give you some samples if we have any, but also check with her pharmacy to see how much thiswill cost. * Attachments The following attachments cannot be sent through Care Everywhere. * A-fib (Atrial Fibrillation) (Data Center Consultant) (Ghanaian) documented in this encounter Ordered Prescriptions Prescription Sig Dispense Quantity Refills Last Filled Start Date End Date rivaroxaban (Xarelto) 20 mg tabletIndications: atrial fibrillation Take 1 tablet (20 mg total) by mouth daily 30 tablet 11 05/13/2022 09/01/2022 documented in this encounter Progress Notes * Jillian Menendez MD - 05/13/2022 2:30 PM CDT [facility] Cardiology [facility] DATE OF VISIT: 05/13/2022 DATE: 1940 CHIEF COMPLAINT Chief Complaint Patient presents with ??? Follow-up 3 mo FU CAD, syncope HPI Ni Neri is a 81 y.o. female with a history of inferior TX and stent to the RCA and PDA in 03/2020. Also history of paroxysmal AFib, brief PSVT, syncope, hypertension, hyperlipidemia, COPD, asymptomatic PAD (70% stenosis of the right common iliac), chronic back pain with spinal stenosis. Hasbeen hospitalized for sepsis and also resp problems in last couple of years. 04/15/2020 She suffered an inferior TX (presenting primarily with neck and jaw pain) and was transferred to [facility]. She underwent so PCI by Dr. Merlin [...] 2 months ago while working in the [employer] ???it hit me.?? She suddenly felt like [...] not have the problem prior to her TX in March 2020. She bruises easily. She [...] side in February, didn't feel like old TX, Roxana Graham did an EKG and sent her to [...] heart rate, and brief PSVT as below. Had blood tests drawn last week through Roxana Graham NP. Social: [place] in 12/2018. 4 children but oldest son fr cancer 2021 age 62. MEDICAL HISTORY Past Medical History: Diagnosis Date ??? Arthritis ??? Asthma ??? Chronic back pain ??? COPD (chronic obstructive pulmonary disease) (CMS/HCC) (HCC) ??? Coronary artery disease ??? Depression ??? Head and neck cancer (CMS/HCC) (HCC) ??? HTN (hypertension) ??? Kidney stones ??? Lung nodule ??? Mixed hyperlipidemia ??? Myocardial infarction (CMS/HCC) (HCC) 03/2020 Occluded proximal RCA, stent proximal RCA, stent PDA, Dr. Li, [facility] Social History Tobacco Use ??? Smoking status: Current Every Day Smoker Packs/day: 0.05 Years: 38.00 Pack years: 1.90 Types: Cigarettes Start date: 11/22/1980 ??? Smokeless tobacco: Never Used Vaping Use ??? Vaping Use: Never used Substance Use Topics ??? Drug use: Not Currently Family History [...] times a day, Disp: , Rfl: ??? fluticasone propion-salmeteroL (ADVAIR DISKUS) 500-50 mcg/dose diskus inhaler, Inhale 1 puff 2 (two) times a day Rinse mouth with water after use. Do not swallow., Disp: , Rfl: ??? fluticasone propionate (FLONASE) 50 mcg/actuation nasal spray, Administer 1 spray into each nostril daily, Disp: , Rfl: ??? losartan (COZAAR) 50 mg tablet, Take 1 tablet (50 mg total) by mouth daily, Disp: 90 tablet, Rfl: 1 ??? nitroglycerin (NITROSTAT) 0.4 mg SL tablet, [...] ??? pravastatin (PRAVACHOL) 40 mg tablet, Take 1 tablet (40 mg total) by mouth daily, Disp: 30 tablet, Rfl: 11 ??? busPIRone (BUSPAR) 10 mg tablet, Take 10 mg by mouth 2 (two) times a day (Patient not taking: Reported on 05/13/2022), Disp: , Rfl: ??? cyclobenzaprine (FLEXERIL) 10 mg tablet, Take 10 mg by mouth 3 (three) times a day as needed for muscle spasms (Patient not taking: Reported on 05/13/2022), Disp: , Rfl: ??? escitalopram (LEXAPRO) 20 mg tablet, TAKE 1 TABLET EVERY DAY BY ORAL ROUTE FOR 30 DAYS. (Patient not taking: Reported on 05/13/2022), Disp: , Rfl: ??? gabapentin ER (GRALISE) 600 mg tablet extended release 24 hr, Take 600 mg by mouth 3 (three) times a day (Patient not taking: Reported on 05/13/2022), Disp: , Rfl: ??? ipratropium-albuteroL (DUO-NEB) 0.5-2.5 mg/3 mL nebulizer solution, 3 mL daily (Patient not taking: Reported on 05/13/2022), Disp: , Rfl: ??? montelukast (SINGULAIR) 10 mg tablet, Take 10 mg by mouth nightly (Patient not taking: Reportedon 05/13/2022), Disp: , Rfl: ??? naloxone HCl (NARCAN NASL), Administer into affected nostril(s) (Patient not taking: Reported on 05/13/2022), Disp: , Rfl: ??? rivaroxaban (Xarelto) 20 mg tablet, Take 1 tablet (20 mg total) by mouth daily, Disp: 30 tablet, Rfl: 11 ??? tiotropium (SPIRIVA) 18 mcg per inhalation [...] Genitourinary: Negative for hematuria. Neurological: Positive for paresthesias (legs and feet) and weakness. Negative for dizziness. Psychiatric/Behavioral: Negative for depression. The patient has insomnia. PHYSICAL EXAM Blood pressure 148/76, pulse 61, height 149.9 cm (4' 11 ), weight 52.2 kg (115 lb), SpO2 99 %. Body mass index is 23.23 kg/m??. Physical Exam Constitutional: Appearance: Normal appearance. She is well-developed. Comments: Well-groomed older lady, appears younger than stated age, NAD Feet and hands are warm, not discolored. Initial BP 144/68, later 148/76 mmHg HENT: Head: Normocephalic and atraumatic. Mouth/Throat: Mouth: Mucous membranes are moist. Eyes: Extraocular Movements: Extraocular movements intact. Neck: Thyroid: No thyromegaly. Vascular: No carotid bruit. Cardiovascular: Rate and Rhythm: Normal rate and regular rhythm. Pulses: Dorsalis pedis pulses are 2+ on the right side and 0 on the left side. Posterior tibial pulses are 1+ on the right side and 1+ on the left side. Heart sounds: Normal heart sounds. No murmur heard. Pulmonary: Effort: Pulmonary effort is normal. No respiratory distress. Breath sounds: Wheezing (Scattered faint wheezes) present. Abdominal: General: There is no distension. Palpations: [...] is 17%, proBNP 312, norecent lipids available. Cardiac testin07/2021 Echo: ??EF 73%, mild LVH, diast dysfxn, mild to [...] orders for this visit: Paroxysmal atrial fibrillation ([facility] ([facility]) (Primary) - rivaroxaban (Xarelto) 20 mg tablet; Take 1 tablet (20 mg total) by mouth daily PSVT (paroxysmal supraventricular tachycardia) ([facility] ([facility]) Syncope and collapse Coronary artery disease involving modoc coronary artery of modoc heart without angina pectoris H/O acute myocardial infarction of inferior wall Mixed hyperlipidemia Essential hypertension Other iron deficiency anemia PAD (peripheral artery disease) ([facility]) ([facility]) Other emphysema ([facility]) ([facility]) Depressive disorder Spinal stenosis of lumbar region without neurogenic claudication Decreased ambulation status Paroxysmal atrial fibrillation: 5% burden on recent monitoring. Sounds asymptomatic but does put patient at risk of cardioembolic events. I recommended anticoagulation rather than the dual anti-platelet therapy she is currently taking. PSVT: Brief episodes up to 40 seconds, asymptomatic but at RVR. Syncope: 4 episodes of syncope. Thirty day monitor did not show any Elliott arrhythmias, V-tach or pauses. No recent episodes. Usually PSVT does not cause syncope. CAD, history of TX: TX in March 2020, status post RCA stent. Normal systolic function by echo. No angina. Hypertension: Not at goal today. Mixed hyperlipidemia: Taking pravastatin 40 mg daily. Lipids as above, at goal Anemia: Mildly anemic in February, appears to have some mild iron deficiency. No overt GI bleeding. May complicate use of anticoagulants, but she has tolerated aspirin and clopidogrel in the past. PAD: 70% right iliac stenosis noted at the time of cardiac catheterization. I do not think she has claudication. She does have diminished pulses on the left foot but her feet are warm. She complains of her hands and feet getting cold and turning color but this may simply be a reaction to cold temperatures or perhaps Raynaud's but I doubt is due to poor circulation. Weakness, fatigue, trouble walking: Probably from severe spinal spondylosis. COPD: Wheezing today. Does not use inhalers regularly. Depression PLAN/RECOMMENDATIONS Counseled patient about cardioembolic risks of atrial fibrillation, recommended medication changes. Stop aspirin Stop clopidogrel Start Xarelto 20 mg daily with supper time Written information provided; patient appeared overwhelmed with all this information. Follow-up in 3 weeks with nurse practitioner for further discussion and counseling. Consider the addition of Cardizem to help control PSVT and blood pressure May consider loop recorder at a later date as well. Obtain recent labs from Roxana Graham NP. May need to order lipids if they have not been done recently, as well as TSH and follow H&H closely. My total encounter time on 05/13/2022 was 54 minutes which was spent in the activities documented inthe note. This includes time spent prior to the visit and after the visit in direct care of the patient. This time does not include time spent in any separately reportable services. Jillian Menendez MD, [facility] Cardiology Office: [phone] or [phone] Portions of the record may have been created with voice recognition [employer] variances may occur. Despite proofreading, typographical errors may occur. Occasionalwrong-word or '[id number]' substitutions may have occurred due to the inherent limitations of voice recognition software. Read the chart carefully and recognize, using context, where substitutions have occurred. documented in this encounter Plan of Treatment Not on file documented as of this encounter Visit Diagnoses Diagnosis Paroxysmal atrial fibrillation (CMS/HCC) (HCC)- Primary Atrial fibrillation PSVT (paroxysmal supraventricular tachycardia) (HCC) Paroxysmal supraventricular tachycardia Syncope and collapse Coronary artery disease involving modoc coronary artery of modoc heart without angina pectoris H/O acute myocardial infarction of inferior wall Mixed hyperlipidemia Essential hypertension Unspecified essential hypertension Other iron deficiency anemia PAD (peripheral artery disease) (HCC) Unspecified peripheral vascular disease Other emphysema (HCC) Other emphysema Depressive disorder Depressive disorder, not elsewhere classified Spinal stenosis of lumbar region without neurogenic claudication Decreased ambulation status documented in this encounter Discontinued Medications Medication Sig Discontinue Reason Start Date End Da te clopidogreL (PLAVIX) 75 mg tabletIndications:Hammond ry artery disease involving modoc coronary artery of modoc heart without angina pectoris Take 1 tablet (75 mg total) by mouth daily 07/22/2021 05/13/2022 aspirin (Enteric Coated Aspirin) 81 mg enteric coated tabletIndications:Hammond ry artery disease of modoc artery of modoc heart with stable angina pectoris (HCC) Take 1 tablet (81 mg total) by mouth daily 01/27/2022 05/13/2022 documented as of this encounter Care Teams Senior C Software Engineer Relationship Specialty Start Date End Date Roxana Graham NP [facility] [place] [address] PCP - General Nurse Practitioner 07/01/21 12/28/22 Merlin Nunez MD Consulting Physician Cardiovascular Disease 04/17/20 documented as of this encounter
--- OUTSIDE RECORDS SUMMARY | 2024-12-08 03:47 | XMS_ITS | Encounter Summary ---
Author Organization [facility] Healthcare Address [address] [place] [address] Care Team Providers Care Wafer Line Worker Name Role Phone Merlin Nunez MD Unavailable [phone] Roxana Graham NP Primary Care Provider [phone] Reason for Visit * Reason Comments Follow-up 1 mo Encounter Details Date Type Department Care Team (Latest Contact Info) Description 01/11/2024 2:30 PM ASPHALT BLENDER Office Visit [facility] Cardiology [address] [place] [id number] Jillian Menendez MD [address] [place] [address] Syncope and collapse (Primary Dx); Paroxysmal atrial fibrillation (CMS/HCC) (HCC); PSVT (paroxysmal supraventricular tachycardia); Coronary artery disease involving creek coronary artery of creek heart without angina pectoris; Mixed hyperlipidemia; Essential hypertension; PAD (peripheral artery disease) (HCC); Subacute cough; Other emphysema (HCC) Social History Tobacco Use Types Packs/Day Years Used Date Smoking Tobacco: Every Day Cigarettes 0.1 44 Started: 11/22/1980 Smokeless Tobacco: Never Tobacco Cessation:Ready to Q uit: Not Asked; Counseling Given: Not Answered Comments Unknown Sex and Gender Information Value Date Recorded Sex Assigned at Not on file Legal Sex Female 7:12 PM ASPHALT BLENDER Gender Identity Not on file Sexual Orientation Not on file documented as of this encounter Last Filed Vital Signs Vital Sign Reading Time Taken Comments Blood Pressure 148/98 01/11/2024 2:40 PM ASPHALT BLENDER Pulse 88 01/11/2024 2:40 PM ASPHALT BLENDER Temperature - - Respiratory Rate - - Oxygen Saturation 97% 01/11/2024 2:40 PM ASPHALT BLENDER Inhaled Oxygen Concentration - - Weight 52.2 kg (115 lb) 01/11/2024 2:40 PM ASPHALT BLENDER Height 149.9 cm (4' 11 ) 01/11/2024 2:40 PM ASPHALT BLENDER Body Mass Index 23.23 01/11/2024 2:40 PM ASPHALT BLENDER documented in this encounter Patient Instructions * Patient Instructions* Jillian Menendez MD - 01/11/2024 2:30 PM ASPHALT BLENDER Your passing out is of concern, though not directly due to the atrial fibrillation and is not a heart attack. I am concerned that you are having slow heart beats or pauses of your heart beat at times. Consider letting me implant a loop recorder so we can hopefully catch an episode and see if it is due to slow heart beats or a pause of your heart rhythm. Call Roxana Graham about your cough and you might have a bronchitis. Get a chest xray done and let us (and her) know when and where it was done. You have Intermittent (Paroxysmal) atrial fibrillation since 2020. Your heart beat can become irregular at times, may can contribute to making you feel bad. Atrial fibrillation can cause blood clots and strokes and that is why you take the anticoagulant Xarelto. (I changed my mind about treating the atrial fib with anything new, so I did NOT send any new prescription in .) ALT BLENDER ALT BLENDER ALT BLENDER ALT BLENDER ALT BLENDER documented in this encounter Ordered Prescriptions Prescription Sig Dispense Quantity Refills Last Filled Start Date End Date dilTIAZem CD/XR/XT (CARDIZEM CD,DILACOR XR) 120 mg 24 hr capsuleIndications :Paroxysmal atrial fibrillation (CMS/HCC) (HCC) Take 1 capsule (120 mg total) by mouth daily 30 capsule 11 01/11/2024 4 documented in this encounter Progress Notes * Jillian Menendez MD - 01/11/2024 2:30 PM CST [facility]iology [facility] DATE OF VISIT: 01/11/2024 DATE: 1940 CHIEF COMPLAINT Chief Complaint Patient presents with Follow-up 1 mo FU CAD, recurrent syncope HPI Ni Neri is a 83 y.o. female with a history of inferior MD and stent to the RCA and PDA in 03/2020. Also history of paroxysmal Afib (incidentally noted on monitor 2021) , brief PSVT, syncope, hypertension, hyperlipidemia, COPD, asymptomatic PAD (70% stenosis of the right common iliac), recurrent syncope, chronic back pain with spinal stenosis. Has been hospitalized for sepsis and also respproblems in last couple of years. 04/15/2020 admitted for an inferior MD (presenting primarily with neck and jaw pain) and was transferred to [facility]. She underwent so PCI by Dr. [...] 2 months ago while working in the [employer] ???it hit me.?? She suddenly felt like [...] not have the problem prior to her MD in March 2020. She bruises easily. She [...] side in February, didn't feel like old MD, Roxana Graham did an EKG and sent [...] about the loss of her son and in the last few years. Event monitor 12/2021 showed [...] that she might have another heart attack. 06/28/2023 office visit with CARRIE Mullen: Her complaint today is feeling so tired, not sleeping well. She is frequently clearing phlegm which is a clear to cloudy color. Has recently been to an ENT for wax impaction. She has also been to an weigh machine operator and is being treated for both glaucoma and macular degeneration. Occasionally has high blood pressure readings but has not noticed if it correlates with flares in her chronic back pain. Her legs are weak as well but she states it would be degrading to her to use a cane or walker. She denies any chest pain or bleeding problems. She is had no further episodes of syncope. 11/30/2023 office visit with CARRIE Mullen: appt was made today due to an episode of chest pain that occurred some time around [place] (see telephone note 11/19/2023). She has had no recurrence since then. Feet aren't as swollen as they were before. No noticeable worsening of SOB, denies orthopnea or PND. She states she feels tired all the time and is sensitive to the cold. She went to PCP yesterday and had labs drawn. She was given atb (sinus infection?) and vitamin D. EKG shows sinus rhythm. Stable, continue same. 01/11/[address] Menendez: I guess I'm alive, that's saying something. Passed out2 Saturdays ago. Doesn't sleep swell. Was sitting at the table at 5 a.m., got very nauseated, felt funny and sick, presyncopal then awoke on the floor. Daughter came over and got her up off the floor. Bruised left arm and sore leg and back. [place] fine. No palps, CP, [place]. Pre-DM. So tired al the time, which is not like her. Developed a cough productive of brownish sputum x 1.5 months. Wheezing and rattling. Using albuterol inhaler. Cont to smoke. No TNG use. Pt surprised to learn that she has PAF. No Fevers. EKG today shows sinus rhythm with APCs and a brief run of PSVT. Social: [place] in 12/2018. 4 children but oldest son fr cancer 2021 age 62. MEDICAL HISTORY Past Medical History: Diagnosis Date Arthritis Asthma Chronic back pain COPD (chronic obstructive pulmonary disease) (HCC) Coronary artery disease Depression Head and neck cancer (HCC) HTN (hypertension) Kidney stones Lung nodule Mixed hyperlipidemia Myocardial infarction (HCC) 03/2020 Occluded proximal RCA, stent proximal RCA, stent PDA, Dr. Li, [facility] Social History Tobacco Use Smoking status: Every Day Current packs/day: 0.05 Average packs/day: 0.1 packs/day for 43.1 years (2.2 ttl pk-yrs) Types: Cigarettes Start date: 11/22/1980 Smokeless tobacco: Never Substance and Sexual Activity Drug use: Not Currently Sexual activity: None Alcohol Use: Not on file Family History Problem Relation Age of Onset Pneumonia Mother Cancer Father Diabetes Father MEDICATIONS Current Outpatient Medications: acetaminophen (TYLENOL) 325 mg [...] THEN RECHECK BLOOD LEVELS, Disp: , Rfl: escitalopram (LEXAPRO) 20 mg tablet, TAKE 1 TABLET EVERY DAY BY ORAL ROUTE FOR 30 DAYS., Disp: , Rfl: ipratropium (ATROVENT) 21 mcg (0.03 %) nasal spray, Administer 2 sprays into each nostril 2 (two) times a day, Disp: , Rfl: losartan (COZAAR) 50 mg tablet, Take 1 tablet (50 mg total) by mouth daily, Disp: 90 tablet, Rfl: 2 nitroglycerin (NITROSTAT) [...] mouth daily, Disp: 14 tablet, Rfl: 0 naloxone HCl (NARCAN NASL), Administer into affected nostril(s) (Patient not taking: Reported on 05/13/2022), Disp: , Rfl: ALLERGIES Allergies Allergen Reactions Codeine Itching Hydromorphone Stomach upset Morphine Stomach upset Sulfa (Sulfonamide Antibiotics) Stomach upset REVIEW OF SYSTEMS Review of Systems Constitutional: Positive for malaise/fatigue (so tired all the time) and weight loss. HENT: Negative for congestion. Eyes: Negative for blurred vision (Has macular degeneration, had injection last week, cataract.) and visual disturbance. Cardiovascular: Positive for palpitations and [...] and is nervous/anxious. PHYSICAL EXAM Blood pressure 148/98, pulse 88, height 149.9 cm (4' 11 ), weight 52.2 kg (115 lb), SpO2 97%. Body mass index is 23.23 kg/m??. Physical Exam Constitutional: Appearance: Normal appearance. She is well-developed. Comments: Well-groomed older lady, NAD Feet and hands are warm, not discolored. Pulse Readings from Last 3 Encounters: 01/11/24 : 88 11/30/23 : 68 06/28/23 : 54 HENT: Head: Normocephalic and atraumatic. Mouth/Throat: Mouth: Mucous membranes are moist. Eyes: Extraocular Movements: Extraocular movements intact. Neck: Thyroid: No thyromegaly. Vascular: No carotid bruit. Cardiovascular: Rate and Rhythm: Normal rate. Rhythm irregular. Heart sounds: Normal heart sounds. No murmur [...] HDL 49 04/15/2020 No results found for: LDL ] Lab Results Component Value Date LDLCALC 57 [...] and tachycardia, APCs, atrial couplets and IVCD. 01/2022 30 day monitor: Paroxysmal atrial fibrillation, 5% burden, PSVT, no pauses. No VT. Other testin02/20/2021 CT of the chest: CAD, left lower lobe nodule, stable interstitial changes of the lungs 02/18/2021 chest x-ray: Unremarkable. ASSESSMENT Diagnoses and all orders for this visit: Syncope and collapse (Primary) Paroxysmal atrial fibrillation (CMS/HCC) ([facility]) - ECG 12 lead PSVT (paroxysmal supraventricular tachycardia) Coronary artery disease involving creek coronary artery of creek heart without angina pectoris Mixed hyperlipidemia Essential hypertension PAD (peripheral artery disease) ([facility]) Subacute cough - XR Chest Pa Lateral 2 Views; Future Other emphysema ([facility]) PLAN/RECOMMENDATIONS Syncope: 4 prior episodes of syncope, now a 5th with minimal prodrome. Thirty day monitor did not show any Elliott arrhythmias, V-tach or pauses. She has normal LV fxn so ventricular arrhythmias are unlikely, but still possible. More likely patient was having some Elliott arrhythmias or pauses. --counseled patient, recommended loop recorder implant which will be performed next week. --Hold Xarelto for 2 days prior Paroxysmal atrial fibrillation: Noted by monitor in 2021. Not on any rate- controlling med; HR in a fib was in 60's for the most part. --Continue Xarelto. PSVT: Brief episodes up to 40 seconds, asymptomatic but at RVR. Heart rate appeared irregular on today's exam but not AFib, just a brief run of PSVT. No specific therapy indicated. CAD, history of MD: MD in March 2020, status post RCA stent. Normal systolic function by echo. No angina. --Cont secondary prevention with Xarelto, statin Hypertension: Not At goal today, though generally better.. --Cont losartan Mixed hyperlipidemia: LDL cholesterol was 44. --Cont pravastatin PAD: 70% right iliac stenosis noted at [...] I doubt is due to poor circulation. COPD: Has inhalers regularly. Cough: Cough productive of brown sputum, some wheezing. May have bronchitis. --chest x-ray today --instructed patient to call her PCP, Quinn TOMLINSON in 6 months with DIESEL INSPECTOR Marianela Mullen Loop recorder implant next week Jillian Menendez MD, [facility] Cardiology Office: [phone] or [phone] My total encounter time on 01/11/2024 was 46 minutes which was spent in the activities documented inthe note. This includes time spent prior to the visit and after the visit in direct care of the patient. This time does not include time spent in any separately reportable services. Portions of the record may have been created with voice recognition [employer] Software.Internet Architect variances may occur. Despite proofreading, typographical errors may occur. Occasionalwrong-word or '[id number]' substitutions may have occurred due to the inherent limitations of voice recognition software. Read the chart carefully and recognize, using context, where substitutions have occurred. ALT BLENDER documented in this encounter Plan of Treatment Not on file documented as of this encounter Procedures Procedure Name Priority Date/Time Associated Diagnosis Comments ECG 12-LEAD Routine 01/11/2024 Paroxysmal atrial fibrillation (CMS/HCC) (HCC) documented in this encounter Results * XR Chest Pa Lateral 2 Views (01/14/2024 11:45 AM ASPHALT BLENDER) Anatomical Region Laterality Modality Body, Chest N/A Radiographic Vivian ging us Jillian Menendez MD IMG XR PROCEDURES Final Res ult * ECG 12 lead (01/11/2024) Jillian Menendez MD ECG ORDERABLES Edited Resu lt - Final documented in this encounter Visit Diagnoses Diagnosis Syncope and collapse- Primary Paroxysmal atrial fibrillation (CMS/HCC) (HCC) Atrial fibrillation PSVT (paroxysmal supraventricular tachycardia) (HCC) Paroxysmal supraventricular tachycardia Coronary artery disease involving creek coronary artery of creek heart without angina pectoris Mixed hyperlipidemia Essential hypertension Unspecified essential hypertension PAD (peripheral artery disease) (HCC) Unspecified peripheral vascular disease Subacute cough Other emphysema (HCC) Other emphysema documented in this encounter Discontinued Medications Medication Sig Discontinue Reason Start Date End Da te dilTIAZem CD/XR/XT (CARDIZEM CD,DILACOR XR) 120 mg 24 hr capsuleIndications:Paroxy smal atrial fibrillation (CMS/HCC) (HCC) Take 1 capsule (120 mg total) by mouth daily Error 01/11/2024 01/11/2024 documented as of this encounter Care Teams Wafer Line Worker Relationship Specialty Start Date End Date Roxana Graham NP [address] [place] [id number] PCP - General Nurse Practitioner 11/30/23 Merlin Nunez MD Consulting Physician Cardiovascular Disease 04/17/20 documented as of this encounter
--- OUTSIDE RECORDS SUMMARY | 2024-12-08 03:47 | XMS_ITS | Encounter Summary ---
Author Organization [facility] Address [address] [place] [address] Care Team Providers Care Manager Forensic Name Role Phone Merlin Nunez MD Unavailable [phone] Roxana Graham NP Primary Care Provider [phone] Encounter Details Date Type Department Care Team (Late st Contact Info) Description 06/03/2022 Telephone [facility] Cardiology [address] [facility] [address] [place] [address] Jillian Menendez MD [address] [facility] [address] [place] [address] Social History Tobacco Use Types Packs/Day Years Used Date Smoking Tobacco: Every Day Cigarettes 0.1 44 Started: 11/22/1980 Smokeless Tobacco: Never Comments Unknown Sex and Gender Information Value Date Recorded Sex Assigned at Not on file Legal Sex Female 7:12 PM SYNTHETIC CHEMIST Gender Identity Not on file Sexual Orientation Not on file documented as of this encounter Miscellaneous Notes * Telephone Encounter - Francisca Deal MA - 10/20/2022 10:50 AM SYNTHETIC CHEMIST Patient informed samples are ready for pick pack worker HETIC CHEMIST * Telephone Encounter - Chantelle Ramos - 10/20/2022 10:29 AM CST Pt requesting Xarelto 20 mg samples. Contact:[phone] HETIC CHEMIST * Telephone Encounter - Francisca Deal MA - 09/04/2022 3:49 PM CDT Lm for patient that samples are ready for pick pack worker * Telephone Encounter - Venu Galvez - 09/04/2022 11:46 AM CDT Pt requesting Xarelto samples.Thank you Contact:[phone] * Telephone Encounter - Jemima Rodriguez MA - 09/01/2022 11:58 AM CDT Spoke with pt and notified her we do not have samples at this time. Pt aware to keep calling to seewhen we get samples in. One week supply sent to [facility] in [place]. Provided pt telephone number for [facility] ([phone]) they work with pt's who are in the donut hole or can not afford Xarelto. * Telephone Encounter - Venu Galvez - 09/01/2022 11:38 AM CDT Pt asking if we have Xarelto samples,if not if a 1 week supply can be called in states she can not afford the month supply.Please advise.Thank you Contact:[phone] Leave a detailed message * Telephone Encounter - Francisca Deal MA - 08/31/2022 10:42 AM CDT LM for patient that we do not have any samples in at this time. Try again later this week * Telephone Encounter - Chantelle Ramos - 08/31/2022 9:28 AM CDT Pt requesting xarelto 20 mg samples. States her daughter Khadijah could pick them up tomorrow after work. Contact: * Telephone Encounter - Jemima Rodriguez MA - 08/03/2022 12:11 PM CDT Pt notified we have samples ready for pick pack worker * Telephone Encounter - Chantelle Ramos - 08/03/2022 9:33 AM CDT Pt requesting samples of xarelto 20 mg. Contact: * Telephone Encounter - Jemima Rodriguez MA - 06/03/2022 11:15 AM CDT Pt informed we have samples ready for pick pack worker. Aware to double up bc we only have Xarelto 10 mg currently. * Telephone Encounter - Chantelle Ramos - 06/03/2022 10:05 AM CDT Pt called to cancel appt tomorrow with CT because she was exposed to someone who tested positive for COVID on 06/01. States she has some samples of xarelto that will probably last her til 06/08 but nottil her next appt on 06/18. Pt requesting samples of xarelto to pick pack worker next week or an alternative since she cannot afford xarelto. Contact: documented in this encounter Plan of Treatment Not on file documented as of this encounter Visit Diagnoses Not on filedocumented in this encounter Care Teams Manager Forensic Relationship Specialty Start Date End Date Roxana Graham NP [facility] [place] [address] PCP - General Nurse Practitioner 07/01/21 12/28/22 Merlin Nunez MD Consulting Physician Cardiovascular Disease 04/17/20 documented as of this encounter
--- OUTSIDE RECORDS SUMMARY | 2024-12-08 03:47 | XMS_ITS | Encounter Summary ---
Author Organization [facility] Healthcare Address [address] [place] [address] Care Team Providers Care Steam Shovel Operator Name Role Phone Merlin Nunez MD Unavailable [phone] Roxana Graham NP Primary Care Provider [phone] Reason for Visit * Reason Onset Date Comments Test Results 01/19/2024 Encounter Details Date Type Department Care Team (Late st Contact Info) Description 01/19/2024 Telephone [facility] Cardiology [address] [address] Jillian Menendez MD [address] [place] [address] Test Results Social History Tobacco Use Types Packs/Day Years Used Date Smoking Tobacco: Every Day Cigarettes 0.1 44 Started: 11/22/1980 Smokeless Tobacco: Never Comments Unknown Sex and Gender Information Value Date Recorded Sex Assigned at Not on file Legal Sex Female 7:12 PM CAN LABELER Gender Identity Not on file Sexual Orientation Not on file documented as of this encounter Miscellaneous Notes * Telephone Encounter - Luz Mccracken MA - 01/20/2024 11:51 AM CST Request has been sent to [facility]. Once CXR is received I'll scan into chart and rout to ELU LABELER * Telephone Encounter - Jillian Menendez MD - 01/19/2024 8:50 PM CAN LABELER I ordered a CXR, pt says she had it done last Wednesday at [facility], but I can't find the results in Epic. Please search for them, thanks! LABELER documented in this encounter Plan of Treatment Not on file documented as of this encounter Visit Diagnoses Not on filedocumented in this encounter Care Teams Steam Shovel Operator Relationship Specialty Start Date End Date Roxana Graham NP [address] [place] [address] PCP - General Nurse Practitioner 11/30/23 Merlin Nunez MD Consulting Physician Cardiovascular Disease 04/17/20 documented as of this encounter
--- OUTSIDE RECORDS SUMMARY | 2024-12-08 03:47 | XMS_ITS | Encounter Summary ---
Author Organization [facility] Address [address] [place] [address] Care Team Providers Care Spring Maker Name Role Phone Merlin Nunez MD Unavailable [phone] Roxana Graham NP Primary Care Provider [phone] Reason for Visit * Reason Onset Date Comments Find labs 05/13/2022 Encounter Details Date Type Department Care Team (Late st Contact Info) Description 05/13/2022 Telephone [facility] Cardiology [address] [place] [address] Jillian Menendez MD [address] [facility] [address] [place] [address] Find labs Social History Tobacco Use Types Packs/Day Years Used Date Smoking Tobacco: Every Day Cigarettes 0.1 44 Started: 11/22/1980 Smokeless Tobacco: Never Comments Unknown Sex and Gender Information Value Date Recorded Sex Assigned at Not on file Legal Sex Female 7:12 PM GOVERNMENT CLERK Gender Identity Not on file Sexual Orientation Not on file documented as of this encounter Miscellaneous Notes * Telephone Encounter - Analy Ac MA - 05/14/2022 10:43 AM CDT Request for labs faxed to PCP. * Telephone Encounter - Jillian Menendez MD - 05/13/2022 5:16 PM CDT Pt says she had labs drawn last week by HAND ORNAMENT MAKER Roxana Graham; please find them. documented in this encounter Plan of Treatment Not on file documented as of this encounter Visit Diagnoses Not on filedocumented in this encounter Care Teams Spring Maker Relationship Specialty Start Date End Date Roxana Graham NP [facility] [place] [address] PCP - General Nurse Practitioner 07/01/21 12/28/22 Merlin Nunez MD Consulting Physician Cardiovascular Disease 04/17/20 documented as of this encounter
--- OUTSIDE RECORDS SUMMARY | 2024-12-08 03:47 | XMS_ITS | Encounter Summary ---
Author Organization [facility] Healthcare Address [address] [place] [address] Care Team Providers Care Star Route Mail Driver Name Role Phone Merlin Nunez MD Unavailable [phone] Roxana Graham NP Primary Care Provider [phone] Reason for Visit * Cardiology (Routine) - Closed Specialty Diagnoses / Procedures Referred By Jong t Referred To Contact Diagnoses Paroxysmal atrial fibrillation (CMS/HCC) (HCC) PSVT (paroxysmal supraventricular tachycardia) (HCC) Status post placement of implantable loop recorder Syncope and collapse Procedures DEVICE CHECK - REMOTE Jillian Menendez MD Phone: tel: fax: Referral ID Status Reason Start Date Expiration Date Visits Re quested Visits Authorized [id number] Closed 01/20/2024 07/20/2025 1 1 Encounter Details Date Type Department Care Team (Latest Contact Info) Description 04/18/2024 10:00 AM CDT Ancillary Procedure 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 Gender Identity Not on file Sexual Orientation Not on file documented as of this encounter Plan of Treatment Not on file documented as of this encounter Procedures Procedure Name Priority Date/Time Associated Diagnosis Comments DEVICE CHECK - REMOTE Routine 04/20/2024 2:12 PM CDT Paroxysmal atrial fibrillation (CMS/HCC) (HCC) PSVT (paroxysmal supraventricular tachycardia) (HCC) Status post placement of implantable loop recorder Syncope and collapse documented in this encounter Results * DEVICE CHECK - REMOTE (04/20/2024 2:12 PM CDT) Anatomical Region Laterality Modality Other Narrative 04/21/2024 10:52 AM CDT Medtronic Loop Recorder implanted on 01.19.2024 for PAF. Routine ILR remote. DOS: 04.18.2024 Normal device function. Battery function: OK Medications: Xarelto Presenting rhythm: VS at 50 bpm Events: ?? 1 Tachy: ECG shows AT on 02.28.2024 (longest 6 seconds, max V rate 162 bpm). Plan: ??Continue remote monitoring ELKIN Lewis Device Specialist us Jillian Menendez MD CV CARDIAC SERVICES PROCEDU RES Final Result documented in this encounter Visit Diagnoses Diagnosis Paroxysmal atrial fibrillation (CMS/HCC) (HCC) Atrial fibrillation PSVT (paroxysmal supraventricular tachycardia) (HCC) Paroxysmal supraventricular tachycardia Status post placement of implantable loop recorder Syncope and collapse documented in this encounter Care Teams Star Route Mail Driver Relationship Specialty Start Date End Date Roxana Graham NP [address] [place] [id number] PCP - General Nurse Practitioner 11/30/23 Merlin Nunez MD Consulting Physician Cardiovascular Disease 04/17/20 documented as of this encounter
--- OUTSIDE RECORDS SUMMARY | 2024-12-08 03:47 | XMS_ITS | Encounter Summary ---
Author Organization [facility] Healthcare Address [address] [place] [address] Care Team Providers Care Metal Products Fabricator Assembler Name Role Phone Merlin Nunez MD Unavailable [phone] Micaela Sabillon NEGATIVE CHECKER Primary Care Provider [phone] Roxana Graham NP Primary Care Provider [phone] Encounter Details Date Type Department Care Team (Late st Contact Info) Description 11/19/2023 Telephone [facility] Medical Group Cardiology [address] [place] [phone] Jillian Menendez MD [address] [place] [address] Social History Tobacco Use Types Packs/Day Years Used Date Smoking Tobacco: Every Day Cigarettes 0.1 44 Started: 11/22/1980 Smokeless Tobacco: Never Comments Unknown Sex and Gender Information Value Date Recorded Sex Assigned at Not on file Legal Sex Female 7:12 PM HOST/HOSTESS Gender Identity Not on file Sexual Orientation Not on file documented as of this encounter Miscellaneous Notes * Telephone Encounter - Marianela Mullen NP - 11/23/2023 6:59 AM HOST/HOSTESS Noted, thank you. /HOSTESS * Telephone Encounter - Adelina Chang RN - 11/19/2023 2:29 PM CST Spoke with pt. Her feet started to swell about 3 days ago. At first she denied any CP or SOB but then she told me she had CP/ pressure that lasted for hours last week at night and she was really scared. She doesn't want to be a bother. It was on her right side and it radiated down her arm she couldnot rate the pain but said she was really scarred. She had to sit at the kitchen table overnight for hours. No SOB or other associated symptoms. She does not think she is in afib, no palpitations. Advised pt to elevate feet over the weekend above the level of the heart several times and decreaseNa intake. Pt also c/o yesterday having blue/ numb fingertips. They are better this am. She states she is always cold. Advised pt to discuss with PCP. Her Dr is no longer going to be in practice soon so advisedher to call to get in with a new provider. Appt made to see CT due to recent CP episode and new edema /HOSTESS * Telephone Encounter - Radha Soto - 11/19/2023 12:44 PM CST Pt reports she has been experiencing edema in both feet. Also reports tips of fingers feeling numb and blue/purple in color. Pt requesting a call back to discuss. Contact:[phone] /HOSTESS documented in this encounter Plan of Treatment Not on file documented as of this encounter Visit Diagnoses Not on filedocumented in this encounter Care Teams Metal Products Fabricator Assembler Relationship Specialty Start Date End Date Micaela Sabillon NP PCP - General Nurse Practitioner 12/29/22 11/29/23 Roxana Graham NP [address] [place] [id number] PCP - General Nurse Practitioner 11/30/23 Merlin Nunez MD Consulting Physician Cardiovascular Disease 04/17/20 documented as of this encounter
--- OUTSIDE RECORDS SUMMARY | 2024-12-08 03:47 | XMS_ITS | Encounter Summary ---
Author Organization [facility] Medical Group Address [address] [place] [address] Care Team Providers Care Screw Machine Hand Name Role Phone Merlin Nunez MD Unavailable [phone] Roxana Graham NP Primary Care Provider [phone] Reason for Visit * Consultation (Routine) - Closed Specialty Diagnoses / Procedures Referred By Jong santos Referred To Contact Cardiology Diagnoses Syncope and collapse Nuno Lozano MD [address] [place] [address] Phone: tel: fax: [facility] Medical [facility] Cardiology [address] [place] [phone] Phone: tel: fax: Referral ID Status Reason Start Date Expiration Date V isits Requested Visits Authorized [id number] Closed Specialty Services Required 06/30/2021 12/27/2021 8 8 Encounter Details Date Type Department Care Team (Late st Contact Info) Description 07/22/2021 11:30 AM CDT Office Visit [facility] Medical [facility] Cardiology [address] [place] [phone] Marianela Mullen NP [address] [place] [id number] Coronary artery disease involving [place] coronary artery of [place] heart without angina pectoris (Primary Dx); Syncope and collapse; Bilateral leg weakness; Spinal stenosis of lumbar region, unspecified whether neurogenic claudication present Social History Tobacco Use Types Packs/Day Years Used Date Smoking Tobacco: Every Day Cigarettes 0.1 44 Started: 11/22/1980 Smokeless Tobacco: Never Comments Unknown Sex and Gender Information Value Date Recorded Sex Assigned at Not on file Legal Sex Female 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 Gender Identity Not on file Sexual Orientation Not on file documented as of this encounter Last Filed Vital Signs Vital Sign Reading Time Taken Comments Blood Pressure 128/72 07/22/2021 12:05 PM CDT Pulse 82 07/22/2021 12:05 PM CDT Temperature - - Respiratory Rate 18 07/22/2021 12:05 PM CDT Oxygen Saturation - - Inhaled Oxygen Concentration - - Weight 57.6 kg (127 lb) 07/22/2021 12:05 PM CDT Height 149.9 cm (4' 11 ) 07/22/2021 12:05 PM CDT Body Mass Index 25.65 07/22/2021 12:05 PM CDT documented in this encounter Ordered Prescriptions Prescription Sig Dispense Quantity Refills Last Filled Start Date End Date pravastatin (PRAVACHOL) 40 mg tabletIndications: Coronary artery disease involving [place] coronary artery of [place] heart without angina pectoris Take 1 tablet (40 mg total) by mouth daily 30 tablet 11 07/22/2021 08/13/2022 clopidogreL (PLAVIX) 75 mg tabletIndications: Coronary artery disease involving [place] coronary artery of [place] heart without angina pectoris Take 1 tablet (75 mg total) by mouth daily 30 tablet 11 07/22/2021 05/13/2022 documented in this encounter Progress Notes * Marianela Mullen NP - 07/22/2021 11:30 AM CDT Images from the original note were not included. [facility] Medical Group Cardiology [address] [place] [address] Date of Visit: 07/22/2021 Patient ID: Ni Neri 1940 Chief Complaint: Ni Neri is a 80 y.o. female who is a newly established patient of Dr. Menendez with a history of CAD and syncope returning to the office for 3 week follow-up. History of Present Illness: Ni Neri is a 80 y.o. female whom I was asked to see at the request of Roxana Graham, CARRIE, for my advice and opinion regarding her syncope. History of CA. also hypertension, COPD, chronic backpain with spinal [...] she called her daughter, had a black eye. Second one about 2 weeks ago, went to get up, passed out, found self on floor. No prodrome for either. About 1 or 2 months ago while working in the [employer] ???it hit me.?? She suddenly felt like her legs were weak, she was lightheaded, and she needed to sat down or else she thought she might pass out.After sitting for while she felt better. No [...] visit. She was prescribed Lexapro by Roxana Vincent but has not taken it as she does notwant to get ???hooked?? on it. Recently she was able to work in the y[place] for 6 hours a day for 2 days, with occasional wheezing but no chest pain. 04/15/2020 Note from [facility] vascular physician Dr. Merlin Nunez reviewed. She suffered an inferior CA (presenting primarily with neck and jaw pain) and was transferred to [facility]. She underwent so PCI with a Xience drug-eluting stent to the occluded proximal RCA, and also a stent in the PDA. 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 Office note from Quinn Villarrealsánchez 02/18/2021 reviewed, patient apparently was seen at [facility] for chest pain, rule out CA, discharged home. Unsteady on her feet. EKG today: NSR rate 63, left axis deviation, short NC interval without delta wave, nonspecific T-wave flattening common doubt any old CA by EKG. 07/22/2021 office visit with CARRIE Mullen: She had initial office consultation with Dr. Menendez 3 weeks ago at which time a 30 day event monitor was placed. She is scheduled for an echo in 2 weeks. She returns to the office today accompanied by her son. She states she was unable to wear the event monitor and she brought it back with her today. The best explanation I can understand she felt it was technically too complicated for her to figure out how to wear it. Shortly after her last visit here [...] Plavix and she wants to restart it. Social: [place] in 12/2018. 4 children. Records that I personally reviewed on the day of this visit include: (the interpretation is outlined in the HPI above) 07/01/[address] Menendez, 04/15/2020 cardiac catheterization report I have also reviewed: allergies, current medications, past family history, past medical history, past social history, past surgical history and problem list Review of Systems Constitutional: Negative for diaphoresis, fever, malaise/fatigue, weight gain and weight loss. HENT: Negative for hearing loss. Eyes: Negative for visual disturbance. Cardiovascular: Negative for chest pain, claudication, dyspnea on exertion, leg swelling, orthopnea, palpitations, paroxysmal nocturnal dyspnea and syncope. Respiratory: Positive for wheezing. Negative for cough, hemoptysis, shortness of breath and snoring. Hematologic/Lymphatic: Bruises/bleeds easily. Skin: Negative for poor wound healing and rash. Musculoskeletal: Positive for joint pain and myalgias. Gastrointestinal: Negative for heartburn, nausea and vomiting. Genitourinary: Negative for hematuria. Neurological: Positive for headaches. Negative for dizziness and light-headedness. Psychiatric/Behavioral: Negative for depression. The patient is not nervous/anxious. Vital Signs: BP 128/72 (BP Location: Right arm, Patient Position: Sitting) Pulse 82 Resp 18 Ht 149.9 cm (4' 11 ) Wt 57.6 kg (127 lb) BMI 25.65 kg/m?? Physical Exam Constitutional: General: She is not in acute distress. Appearance: She is well-developed. HENT: Head: Normocephalic and atraumatic. Nose: Comments: Wearing a mask Eyes: General: No scleral icterus. Conjunctiva/sclera: Conjunctivae normal. Pupils: Pupils are equal, round, and reactive to light. Neck: Vascular: No JVD. Trachea: No tracheal deviation. Pulmonary: Effort: No respiratory distress. Skin: General: Skin is warm and dry. Neurological: Mental Status: She is alert and oriented to person, place, and time. Psychiatric: Mood and Affect: Mood normal. Behavior: Behavior normal. Allergies Allergen Reactions ??? Codeine Itching ??? Hydromorphone Stomach upset ??? Morphine Stomach upset ??? Sulfa (Sulfonamide Antibiotics) Stomach upset Current Outpatient Medications: ??? acetaminophen (TYLENOL) 325 [...] 3 mL daily, Disp: , Rfl: ??? losartan (COZAAR) [...] daily, Disp: 30 tablet, Rfl: 11 ??? clopidogreL (PLAVIX) 75 mg tablet, Take 1 tablet (75 mg total) by mouth daily, Disp: 30 tablet,Rfl: 11 ??? tiotropium (SPIRIVA) 18 mcg per inhalation capsule, Place 1 capsule into inhaler and inhale daily (Patient not taking: Reported on 07/22/2021), Disp: , Rfl: Lab Results Component Value Date POTASSIUM 4.3 04/17/2020 BUNSER 13 04/17/2020 CREATININE 0.54 (L) 04/17/2020 CHOL 135 04/15/2020 TRIG 144 04/15/2020 LDLCALC 57 04/15/2020 HDL 49 04/15/2020 Assessment: Diagnoses and all orders for this visit: Coronary artery disease involving [place] coronary artery of [place] heart without angina pectoris (Primary) - clopidogreL (PLAVIX) 75 mg tablet; Take 1 tablet (75 mg total) by mouth daily - pravastatin (PRAVACHOL) 40 mg tablet; Take 1 tablet (40 mg total) by mouth daily Syncope and collapse Bilateral leg weakness Spinal stenosis of lumbar region, unspecified whether neurogenic claudication present Plan/Recommendations: She has a history of coronary artery disease s/p CA and PCI in March of 2020. I explained how Plavix works after PCI and how it can safely be stopped after a year when a patient does not have any othersignificant coronary lesions that could be a problem in the future. I reviewed her cardiac catheterization report and she did not have any other areas of significant disease and therefore would be very reasonable for her to stop Plavix at this point in time. There is a small chance if she has another episode of syncope and hits her head she could have bleeding in the brain which could be more pronounced if she is taking Plavix. This was discussed at length with the patient and her son and ultimately the patient still wishes to remain on Plavix so I sent refills to her pharmacy. She also has for refills of her pravastatin to be sent. She continues to deny angina. I discussed taking her off Imdur and or Ranexa but she feels confident that she has not been taking either one recently and therefore I removed them from her med list. I recommend she continue aspirin, pravastatinand losartan. She has had 2 episodes of syncope which could be arrhythmogenic. Unfortunately she is unwilling or unable to wear a 30 day event monitor. She is scheduled for a repeat echo in a few weeks to reassessher LV function. If there is any significant LV dysfunction, we will consider EP referral to see ifterell has an inducible ventricular tachycardia. I also explained to the patient that it is highly unlikely her leg weakness is in any way related to her CA or her heart disease. This is much more likely to be related to her spinal stenosis. I encouraged her to have an ongoing discussion with either her PCP or her pain management team about evaluating this further, and strongly consider a course of physical therapy. We will follow-up with her over the phone about the results of her echocardiogram. Keep the previously scheduled follow-up visit with Dr. Menendez in September. Call us sooner with questions or concerns. The patient and her son agreed to this plan. SHARRI Palomares- Nurse Practitioner with [facility] Cardiology This note is dictated and transcribed using [employer] Direct Software. Rn Telehealth variancesmay occur. Despite proofreading, typographical errors may occur. Cosigned by Jillian Menendez MD at 07/24/2021 5:10 PM CDT Associated attestation - Jillian Menendez MD - 07/24/2021 5:10 PM CDT Pt w/ IMI 03/2020; preserved LV fxn at that time. Agree w/ C. Paz's A&P. If LV fxn has deteriorated then we will evaluate for arrhythmic cause of syncope. documented in this encounter Plan of Treatment Not on file documented as of this encounter Visit Diagnoses Diagnosis Coronary artery disease involving [place] coronary artery of [place] heart without angina pectoris- Primary Syncope and collapse Bilateral leg weakness Muscle weakness (generalized) Spinal stenosis of lumbar region, unspecified whether neurogenic claudication present documented in this encounter Discontinued Medications Medication Sig Discontinue Reason Start Date End Da te atorvastatin (LIPITOR) 40 mg tablet Take 1 tablet (40 mg total) by mouth daily after dinner Therapy completed 04/17/2020 07/22/2021 isosorbide mononitrate ER (IMDUR) 30 mg 24 hr tablet Take 30 mg by mouth daily Discontinued by another clinician 07/22/2021 ranolazine ER (RANEXA) 500 mg 12 hr tablet Take 500 mg by mouth 2 (two) times a day Discontinued by another clinician 07/22/2021 pravastatin (PRAVACHOL) 40 mg tablet Take 40 mg by mouth daily Reorder 07/22/2021 documented as of this encounter Care Teams Screw Machine Hand Relationship Specialty Start Date End Date Roxana Graham NP [facility] [place] [address] PCP - General Nurse Practitioner 07/01/21 12/28/22 Merlin Nunez MD Consulting Physician Cardiovascular Disease 04/17/20 documented as of this encounter
--- OUTSIDE RECORDS SUMMARY | 2024-12-08 03:47 | XMS_ITS | Encounter Summary ---
Author Organization [facility] Medical Group Address [address] [place] [address] Care Team Providers Care Table Games Supervisor Name Role Phone Merlin Nunez MD Unavailable [phone] Roxana Graham NP Primary Care Provider [phone] Encounter Details Date Type Department Care Team (Late st Contact Info) Description 01/26/2022 Telephone [facility] Medical Group Cardiology [address] [facility] [address] [place] [address] Jillian Menendez MD [address] [facility] [address] [place] [address] Social History Tobacco Use Types Packs/Day Years Used Date Smoking Tobacco: Every Day Cigarettes 0.1 44 Started: 11/22/1980 Smokeless Tobacco: Never Comments Unknown Sex and Gender Information Value Date Recorded Sex Assigned at Not on file Legal Sex Female 7:12 PM DRY HOUSE TENDER Gender Identity Not on file Sexual Orientation Not on file documented as of this encounter Ordered Prescriptions Prescription Sig Dispense Quantity Refills Last Filled Start Date End Date nitroglycerin (NITROSTAT) 0.[address] 1 tablet (0.4 mg total) under the tongue every 5 (five) minutes as needed for chest pain 25 tablet 3 01/26/2022 4 documented in this encounter Miscellaneous Notes * Telephone Encounter - Marianela Mullen NP - 01/26/2022 12:25 PM DRY HOUSE TENDER Thank you for letting me know. HOUSE TENDER * Telephone Encounter - Yary Hoffmann RN - 01/26/2022 9:48 AM DRY HOUSE TENDER Pt dgt called to report pt having some left sided chest pain this weekend on and off that traveled to her shoulder blades and her back. Pt took some tylenol and maybe got a little relief. Pt statedthe pain isnt like when she had her big heart attack but dgt is concerned about her mom. Pt still this morning is having some CP-she rates it 03/01. Pt has some old-she thinks nitroglycerin at home but hasnt taken any yet. Dgt said pt has been under a lot of stress lately with son having stage 4 lung cancer. Advised pt go to the ED with CP that is unrelieved but pt does not want to go to the ED at this point. Sending in new Rx for nitroglycerin-pt states that medication is expensive. Dgtis going to see if the nitro they have is indeed and will check on the cost of the nitro. Pt is still currently wearing heart monitor but dgt said it is almost complete- reviewed pt chart-no urgent reports have been added to chart. Dgt requested an appt this week if possible-scheduled pt to see CT tomorrow. Discussed instructions for nitroglycerin and again advised pt to report to ED with CP that is unrelieved. Will forward to CT as FYI. HOUSE TENDER * Telephone Encounter - Chantelle Ramos - 01/26/2022 8:15 AM CST Khadijah called to report that around 1 pt was having chest pain on the left side of her chest. Statespt is wearing a holter monitor because pt has episodes usually where she passes out. Also states ptfingers and feet have been turning purple. Requesting call back to discuss. Contact: HOUSE TENDER documented in this encounter Plan of Treatment Not on file documented as of this encounter Visit Diagnoses Not on filedocumented in this encounter Discontinued Medications Medication Sig Discontinue Reason Start Date End Da te nitroglycerin (NITROSTAT) 0.[address] 0.4 mg under the tongue every 5 (five) minutes as needed for chest pain Reorder 01/26/2022 documented as of this encounter Care Teams Table Games Supervisor Relationship Specialty Start Date End Date Roxana Graham NP [facility] [place] [address] PCP - General Nurse Practitioner 07/01/21 12/28/22 Merlin Nunez MD Consulting Physician Cardiovascular Disease 04/17/20 documented as of this encounter
--- OUTSIDE RECORDS SUMMARY | 2024-12-08 03:47 | XMS_ITS | Encounter Summary ---
Author Organization [facility] Address [address] [place] [address] Care Team Providers Care Anthropology And Archeology Instructor Name Role Phone Merlin Nunez MD Unavailable [phone] Micaela Sabillon NP Primary Care Provider [phone] Encounter Details Date Type Department Care Team (Late st Contact Info) Description 03/18/2023 Telephone [facility] Cardiology [address] [facility] [address] [place] [address] Jillian Menendez MD [address] [facility] [address] [place] [address] Social History Tobacco Use Types Packs/Day Years Used Date Smoking Tobacco: Every Day Cigarettes 0.1 44 Started: 11/22/1980 Smokeless Tobacco: Never Comments Unknown Sex and Gender Information Value Date Recorded Sex Assigned at Not on file Legal Sex Female 7:12 PM MANAGER BABY Gender Identity Not on file Sexual Orientation Not on file documented as of this encounter Miscellaneous Notes * Telephone Encounter - Yary Hoffmann RN - 03/19/2023 10:51 AM CDT Pt picked up samples yesterday. * Telephone Encounter - Ese Williamson - 03/18/2023 9:25 AM CDT Pt requesting samples of Xarelto 20 mg Contact [phone] documented in this encounter Plan of Treatment Not on file documented as of this encounter Visit Diagnoses Not on filedocumented in this encounter Care Teams Anthropology And Archeology Instructor Relationship Specialty Start Date End Date Micaela Sabillon NP PCP - General Nurse Practitioner 12/29/22 11/29/23 Merlin Nunez MD Consulting Physician Cardiovascular Disease 04/17/20 documented as of this encounter
--- OUTSIDE RECORDS SUMMARY | 2024-12-08 03:47 | XMS_ITS | Encounter Summary ---
Author Organization [facility] Address [address] [place] [address] Care Team Providers Care Parachute Rigger Name Role Phone Merlin Nunez MD Unavailable [phone] Roxana Graham NP Primary Care Provider [phone] Reason for Visit * Cardiology (Routine) - [...] Expiration Date Visits Re quested Visits Authorized [id number] Closed 01/20/2024 07/20/2025 1 1 Encounter Details Date Type Department Care Team (Latest Contact Info) Description 02/28/2024 10:00 AM CDT Ancillary Procedure [facility] Cardiology [address] [place] [id number] Paroxysmal atrial fibrillation (CMS/HCC) (HCC); PSVT (paroxysmal supraventricular tachycardia) (HCC); Status post placement of implantable loop recorder; Syncope and collapse Social History Tobacco Use Types Packs/Day Years Used Date Smoking Tobacco: Every Day Cigarettes 0.1 44 Started: 11/22/1980 Smokeless Tobacco: Never Comments Unknown Sex and Gender Information Value Date Recorded Sex Assigned at Not on file Legal Sex Female 7:12 PM TELESALES CONSULTANT Gender Identity Not on file Sexual Orientation Not on file documented as of this encounter Plan of Treatment Not on file documented as of this encounter Procedures Procedure Name Priority Date/Time Associated Diagnosis Comments DEVICE CHECK - REMOTE Routine 02/29/2024 1:55 PM CDT Paroxysmal atrial fibrillation (CMS/HCC) (HCC) PSVT (paroxysmal supraventricular tachycardia) (HCC) Status post placement of implantable loop recorder Syncope and collapse documented in this encounter Results * DEVICE CHECK - REMOTE (02/29/2024 1:55 PM CDT) Anatomical Region Laterality Modality Other Narrative 03/12/2024 12:15 PM CDT [employer] [id number] Loop Recorder. Dx; PAF, PSVT, Syncope. DOI 01/19/2024-Gemma. [facility] remote f/u. Routine ILR remote. Normal device function. Battery function-Ok. Presenting rhythm: Vsensed, regular 50 bpm. Medications: Xarelto, Cozaar. Counters since implant. --1 Tachy (total: 1) egm Afib with RVR, 6 second duration @ 162 bpm. --0 Elliott (total: ) --1 Pause (total: 1 ) egm-false d/t undersensing. --0 Symptom (total: ) --0 AF (total: ) See scanned report. [facility] remote f/u 04/18/2024. Li Nguyen RN Jillian Menendez MD [facility] CARDIAC SERVICES PROCEDU RES Final Result documented in this encounter Visit Diagnoses Diagnosis Paroxysmal atrial fibrillation (CMS/HCC) (HCC) Atrial fibrillation PSVT (paroxysmal supraventricular tachycardia) (HCC) Paroxysmal supraventricular tachycardia Status post placement of implantable loop recorder Syncope and collapse documented in this encounter Care Teams Parachute Rigger Relationship Specialty Start Date End Date Roxana Graham NP [address] [place] [id number] PCP - General Nurse Practitioner 11/30/23 Merlin Nunez MD Consulting Physician Cardiovascular Disease 04/17/20 documented as of this encounter
--- OUTSIDE RECORDS SUMMARY | 2024-12-08 03:47 | XMS_ITS | Encounter Summary ---
Author Organization [facility] Address [address] [place] [address] Care Team Providers Care Noise Abatement Engineer Name Role Phone Merlin Nunez MD Unavailable [phone] Roxana Graham NP Primary Care Provider [phone] Reason for Visit * Reason Comments Chest Pain For two days Encounter Details Date Type Department Care Team (Late st Contact Info) Description 01/27/2022 1:00 PM COMPENSATION/BENEFITS SPECIALIST Office Visit [facility] Cardiology [address] [facility] [address] [place] [address] Marianela Mullen NP [address] [facility] [address] [place] [address] 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) (Primary Dx); Syncope and collapse; Change of skin color Social History Tobacco Use Types Packs/Day Years Used Date Smoking Tobacco: Every Day Cigarettes 0.1 44 Started: 11/22/1980 Smokeless Tobacco: Never Comments Unknown Sex and Gender Information Value Date Recorded Sex Assigned at Not on file Legal Sex Female 7:12 PM COMPENSATION/BENEFITS SPECIALIST Gender Identity Not on file Sexual Orientation Not on file documented as of this encounter Last Filed Vital Signs Vital Sign Reading Time Taken Comments Blood Pressure 130/74 01/27/2022 12:58 PM COMPENSATION/BENEFITS SPECIALIST Pulse 70 01/27/2022 12:58 PM COMPENSATION/BENEFITS SPECIALIST Temperature - - Respiratory Rate - - Oxygen Saturation 96% 01/27/2022 12:58 PM COMPENSATION/BENEFITS SPECIALIST Inhaled Oxygen Concentration - - Weight 53.8 kg (118 lb 8 oz) 01/27/2022 12:58 PM COMPENSATION/BENEFITS SPECIALIST Height 149.9 cm (4' 11 ) 01/27/2022 12:58 PM COMPENSATION/BENEFITS SPECIALIST Body Mass Index 23.93 01/27/2022 12:58 PM COMPENSATION/BENEFITS SPECIALIST documented in this encounter Patient Instructions * Patient Instructions* Marianela Mullen NP - 01/27/2022 1:00 PM COMPENSATION/BENEFITS SPECIALIST Color change in fingers and toes sounds like it may be Raynaud's phenomenon and is not a heart-related problem, but a nervous system problem. 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 [facility] Cardiology [address] [place] [address] Date of Visit: 01/27/2022 Patient ID: Ni Neri 1940 Chief Complaint: Ni Neri is a 81 y.o. female who is a newly established patient of Dr. Menendez with a history of CAD and syncope returning to the office for recent chest pain that has traveled to shoulder blades and back. History of Present Illness: Ni Neri is a 81 y.o. female whom I was asked to see at the request of Roxana Graham NP, for my advice and opinion regarding her syncope. History of NY. also hypertension, COPD, chronic backpain with spinal [...] 2 months ago while working in the [employer] ???it hit me.?? She suddenly felt like [...] she was able to work in the [employer] for 6 hours a day for 2 days, with occasional wheezing but no chest pain. 04/15/2020 Note from [facility] vascular physician Dr. Merlin Nunez reviewed. She suffered an inferior NY (presenting primarily with neck and jaw pain) and was transferred to [facility]. She underwent so PCI with a Xience drug-eluting stent to the occluded proximal RCA, and also a stent in the PDA. 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 Office note from Quinn Graham 02/18/2021 reviewed, patient apparently was seen at [facility] for chest pain, rule out NY, discharged home. Unsteady on her feet. EKG today: NSR rate 63, left axis deviation, short GA interval without delta wave, nonspecific T-wave flattening common doubt any old NY by EKG. 07/22/2021 office visit with CARRIE [...] not have the problem prior to her [place] in March 2020. She bruises easily. She [...] not had any further episodes of syncope. 12-lead ECG performed in the office today was independently interpreted by me and showed sinus arrhythmia, LAD, LAFB, cannot rule out septal infarct, rate 81 beats per minute. Social: [place] in 12/2018. 4 children. Records that I personally reviewed on the day of this visit include: (the interpretation is outlined in the HPI above) 07/01/[address] Menendez, 08/08/2021 echocardiogram report, 01/01/2022 office note from myself, 01/26/2022 telephone note in [facility], today's ECG and ECG dated 07/01/2021. I have also reviewed: allergies, current medications, past family history, past medical history, past social history, past surgical history and problem list Review of Systems Constitutional: Positive for malaise/fatigue and weight loss. Negative for diaphoresis, fever and weight gain. HENT: Negative for hearing loss. Eyes: Negative for visual disturbance. Cardiovascular: Positive for syncope. Negative for chest pain, claudication, dyspnea on exertion, leg swelling, orthopnea, palpitations and paroxysmal nocturnal dyspnea. Respiratory: Negative for cough, hemoptysis, shortness of breath, snoring and wheezing. Hematologic/Lymphatic: Bruises/bleeds easily. Skin: Negative for poor wound healing and rash. Musculoskeletal: Negative for joint pain and myalgias. Gastrointestinal: Negative for heartburn, nausea and vomiting. Genitourinary: Negative for hematuria. Neurological: Negative for dizziness, headaches and light-headedness. Psychiatric/Behavioral: Negative for depression. The patient is not nervous/anxious. Vital Signs: BP 130/74 (BP Location: Left arm, Patient Position: Sitting) Pulse 70 Ht 149.9 cm (4' 11 ) Wt53.8 kg (118 lb 8 oz) SpO2 96% BMI 23.93 kg/m?? Physical Exam Constitutional: General: She is not in acute distress. Appearance: She is well-developed. HENT: Head: Normocephalic and atraumatic. Nose: Comments: Wearing a mask Eyes: General: No scleral icterus. Conjunctiva/sclera: Conjunctivae normal. Pupils: Pupils are equal, round, and reactive to light. Neck: Vascular: No JVD. Trachea: No tracheal deviation. Cardiovascular: Rate and Rhythm: Normal rate. Rhythm irregular. Heart sounds: No murmur heard. Pulmonary: Effort: No respiratory distress. Breath sounds: Normal breath sounds. Skin: General: Skin is warm and dry. [...] times a day, Disp: , Rfl: ??? busPIRone (BUSPAR) 10 mg tablet, Take 10 mg by mouth 2 (two) times a day , Disp: , Rfl: ??? clopidogreL (PLAVIX) 75 mg tablet, Take 1 tablet (75 mg total) by mouth daily, Disp: 30 tablet,Rfl: 11 ??? cyclobenzaprine (FLEXERIL) 10 mg tablet, Take [...] daily, Disp: 90 tablet, Rfl: 1 ??? montelukast [...] inhaler and inhale daily, Disp: , Rfl: ??? 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 LV function was normal on echo in July 2021. Today's ECG shows no ischemic changes. I suspect her recent chest pain isemotional distress from her son's illness with terminal cancer. At the visit I have with her last month, we discussed the aspirin and clopidogrel and she did not want to stop clopidogrel so I advisedher to stop aspirin. However, with this recurrence of chest pain that could possibly be angina, I advised her to restart the aspirin 81 mg daily and notify me of any severe bruising and or unusual bleeding. She agreed. Otherwise continue clopidogrel, pravastatin and losartan. She also has a prescription for sublingual nitroglycerin if needed. She has now had a total of 4 episodes of syncope which could be arrhythmogenic in nature. She is currently in the process of wearing a 30 day event monitor. So far we have not received any alerts of abnormality. Her ECG today shows sinus arrhythmia. I briefly told her about an implanted loop recorder and gave her a pamphlet about it. We may recommend this if the event monitor does not reveal anyarrhythmia that could explain the syncope. She describes intermittent sensation of cold in the fingers and toes with color changes that sound consistent with Raynaud's phenomena. I advised her to take a picture of the digits the next time this happens and discuss with PCP. Keep the previously scheduled follow-up visit with Dr. Menendez in April, but call us sooner with any other questions or concerns. And we will follow-up with her over the phone about the results of the event monitor once received. SHARRI Palomares- Nurse Practitioner with [facility] This note is dictated and transcribed using [employer] Software. Tobacco Cutter variancesmay occur. Despite proofreading, typographical errors may occur. 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) Syncope and collapse documented in this encounter Results * ECG 12 lead (01/27/2022) Marianela Mullen NP ECG ORDERABLES Final Res ult documented in this encounter Visit Diagnoses Diagnosis 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
--- OUTSIDE RECORDS SUMMARY | 2024-12-08 03:47 | XMS_ITS | Encounter Summary ---
Author Organization [facility] Address [address] [place] [address] Care Team Providers Care Test Engineering Technician Name Role Phone Merlin Nunez MD Unavailable [phone] Roxana Graham NP Primary Care Provider [phone] Reason for Referral * Cardiology (Routine) - Authorized Specialty Diagnoses / Procedures [facility] Card[facility] Diagnoses Paroxysmal atrial fibrillation (CMS/HCC) (HCC) PSVT (paroxysmal supraventricular tachycardia) (HCC) Syncope and collapse Procedures DEVICE CHECK - REMOTE Daljit Herzog MD [address] [address] Phone: tel: fax: [facility] Referral ID Status Reason Start Date Expiration Date V isits Requested Visits Authorized [id number] Authorized 04/20/2024 10/21/2025 1 1 * Cardiology (Routine) - Authorized Specialty Diagnoses / Procedures Referred By Contac t Referred To Contact Cardiology Diagnoses Paroxysmal atrial fibrillation (CMS/HCC) (HCC) PSVT (paroxysmal supraventricular tachycardia) (HCC) Syncope and collapse Procedures DEVICE CHECK - IN OFFICE Daljit Herzog MD [address] [place] [address] Phone: tel: fax: [facility] Referral ID Status Reason Start Date Expiration Date V isits Requested Visits Authorized [id number] Authorized 04/20/2024 05/20/2025 1 1 * Cardiology (Routine) - Authorized Specialty Diagnoses / Procedures Referred By Contac t Referred To Contact Cardiology Diagnoses Paroxysmal atrial fibrillation (CMS/HCC) (HCC) PSVT (paroxysmal supraventricular tachycardia) (HCC) Syncope and collapse Procedures DEVICE CHECK - REMOTE Daljit Herzog MD [address] [address] Phone: tel: fax: [facility] Referral ID Status Reason Start Date Expiration Date V isits Requested Visits Authorized [id number] Authorized 04/20/2024 10/21/2025 1 1 * Cardiology (Routine) - Authorized Specialty Diagnoses / Procedures Referred By Contac t Referred To Contact Cardiology Diagnoses Paroxysmal atrial fibrillation (CMS/HCC) (HCC) PSVT (paroxysmal supraventricular tachycardia) (HCC) Syncope and collapse Procedures DEVICE CHECK - REMOTE Daljit Herzog MD [address] [address] Phone: tel: fax: [facility] Referral ID Status Reason Start Date Expiration Date V isits Requested Visits Authorized [id number] Authorized 04/20/2024 10/21/2025 1 1 * Cardiology (Routine) - Authorized Specialty Diagnoses / Procedures Referred By Contac t Referred To Contact Cardiology Diagnoses Paroxysmal atrial fibrillation (CMS/HCC) (HCC) PSVT (paroxysmal supraventricular tachycardia) (HCC) Syncope and collapse Procedures DEVICE CHECK - REMOTE Daljit Herzog MD [address] [address] Phone: tel: fax: [facility] Referral ID Status Reason Start Date Expiration Date V isits Requested Visits Authorized [id number] Authorized 04/20/2024 10/21/2025 1 1 * Cardiology (Routine) - Authorized Specialty Diagnoses / Procedures Referred By Contac t Referred To Contact Cardiology Diagnoses Paroxysmal atrial fibrillation (CMS/HCC) (HCC) PSVT (paroxysmal supraventricular tachycardia) (HCC) Syncope and collapse Procedures DEVICE CHECK - REMOTE Daljit Herzog MD [address] [place] [address] Phone: tel: fax: [facility] Referral ID Status Reason Start Date Expiration Date V isits Requested Visits Authorized [id number] Authorized 04/20/2024 10/21/2025 1 1 Encounter Details Date Type Department Care Team (Late st Contact Info) Description 04/20/2024 Orders Only [facility] Cardiology [address] [place] [phone] Daljit Herzog MD [address] [place] [id number] Paroxysmal atrial fibrillation (CMS/HCC) (HCC) (Primary Dx); PSVT (paroxysmal supraventricular tachycardia) (HCC); Syncope and collapse Social History Tobacco Use Types Packs/Day Years Used Date Smoking Tobacco: Every Day Cigarettes 0.1 44 Started: 11/22/1980 Smokeless Tobacco: Never Comments Unknown Sex and Gender Information Value Date Recorded Sex Assigned at Not on file Legal Sex Female 7:12 PM ROUTE PROCESS ADMINISTRATOR Gender Identity Not on file Sexual Orientation Not on file documented as of this encounter Plan of Treatment Scheduled Orders Name Type Priority Associated Diagnoses Orde r Schedule DEVICE CHECK - REMOTE Cardiac Services Routine Paroxysmal atrial fibrillation (CMS/HCC) (HCC) PSVT (paroxysmal supraventricular tachycardia) (HCC) Syncope and collapse Expected: 06/01/2024, Expires: 11/21/2030 DEVICE CHECK - REMOTE Cardiac Services Routine Paroxysmal atrial fibrillation (CMS/HCC) (HCC) PSVT (paroxysmal supraventricular tachycardia) (HCC) Syncope and collapse Expected: 07/13/2024, Expires: 11/21/2030 DEVICE CHECK - REMOTE Cardiac Services Routine Paroxysmal atrial fibrillation (CMS/HCC) (HCC) PSVT (paroxysmal supraventricular tachycardia) (HCC) Syncope and collapse Expected: 04/20/2024, Expires: 11/21/2030 DEVICE CHECK - REMOTE Cardiac Services Routine Paroxysmal atrial fibrillation (CMS/HCC) (HCC) PSVT (paroxysmal supraventricular tachycardia) (HCC) Syncope and collapse Expected: 04/20/2024, Expires: 11/21/2030 DEVICE CHECK - IN OFFICE Cardiac Services Routine Paroxysmal atrial fibrillation (CMS/HCC) (HCC) PSVT (paroxysmal supraventricular tachycardia) (HCC) Syncope and collapse Expected: 04/20/2024, Expires: 11/21/2030 DEVICE CHECK - REMOTE Cardiac Services Routine Paroxysmal atrial fibrillation (CMS/HCC) (HCC) PSVT (paroxysmal supraventricular tachycardia) (HCC) Syncope and collapse Expected: 04/20/2024, Expires: 11/21/2030 documented as of this encounter Visit Diagnoses Diagnosis Paroxysmal atrial fibrillation (CMS/HCC) (HCC)- Primary Atrial fibrillation PSVT (paroxysmal supraventricular tachycardia) (HCC) Paroxysmal supraventricular tachycardia Syncope and collapse documented in this encounter Care Teams Test Engineering Technician Relationship Specialty Start Date End Date Roxana Graham NP [address] [place] [address] PCP - General Nurse Practitioner 11/30/23 Merlin Nunez MD Consulting Physician Cardiovascular Disease 04/17/20 documented as of this encounter
--- OUTSIDE RECORDS SUMMARY | 2024-12-08 03:47 | XMS_ITS | Encounter Summary ---
Author Organization [facility] Healthcare Address [address] [place] [address] Care Team Providers Care Digester Capper Name Role Phone Merlin Nunez MD Unavailable [phone] Roxana Graham NP Primary Care Provider [phone] Reason for Visit * Cardiology (Routine) - Closed Specialty Diagnoses / Procedures Referred By Jong santos Referred To Contact Diagnoses Syncope and collapse Procedures DEVICE CHECK - IN OFFICE Jillian Menendez MD Phone: tel: fax: [facility] Referral ID Status Reason Start Date Expiration Date Visits Re quested Visits Authorized [id number] Closed 01/19/2024 02/17/2025 1 1 Encounter Details Date Type Department Care Team (Latest Contact Info) Description 01/26/2024 3:00 PM ANIMAL PARK CODE ENFORCEMENT OFFICER Ancillary Procedure [facility] Cardiology [address] [place] [address] Status post placement of implantable loop recorder (Primary Dx); Syncope and collapse; Paroxysmal atrial fibrillation (CMS/HCC) (HCC); PSVT (paroxysmal supraventricular tachycardia) Social History Tobacco Use Types Packs/Day Years Used Date Smoking Tobacco: Every Day Cigarettes 0.1 44 Started: 11/22/1980 Smokeless Tobacco: Never Comments Unknown Sex and Gender Information Value Date Recorded Sex Assigned at Not on file Legal Sex Female 7:12 PM ANIMAL PARK CODE ENFORCEMENT OFFICER Gender Identity Not on file Sexual Orientation Not on file documented as of this encounter Plan of Treatment Not on file documented as of this encounter Procedures Procedure Name Priority Date/Time Associated Diagnosis Comments DEVICE CHECK - IN OFFICE Routine 01/26/2024 2:41 PM ANIMAL PARK CODE ENFORCEMENT OFFICER Syncope and collapse documented in this encounter Results * DEVICE CHECK - IN OFFICE (01/26/2024 2:41 PM ANIMAL PARK CODE ENFORCEMENT OFFICER) Anatomical Region Laterality Modality Other Narrative 01/27/2024 5:38 AM ANIMAL PARK CODE ENFORCEMENT OFFICER Medtronic [id number] Loop Recorder. Dx; PAF, PSVT, Syncope. DOI 01/19/2024-Bindu. Overwolf remote f/u. Supervising MD: Dr Bella. Patient seen in device clinic for 1 week post loop recorder implant. Bandage removed from chest. Incision well approximated and scabbed over. No redness, drainage, or edema noted. Reiterated wound care instructions. Answered all patient questions. Factery web site accessed and reviewed. No auto recorded episodes noted. Medications; Xarelto. See scanned report. [employer] remote f/u 02/28/2024. Li Nguyen, ROD us Jillian Menendez MD CV CARDIAC SERVICES PROCEDU RES Final Result documented in this encounter Visit Diagnoses Diagnosis Status post placement of implantable loop recorder- Primary Syncope and collapse Paroxysmal atrial fibrillation (CMS/HCC) (HCC) Atrial fibrillation PSVT (paroxysmal supraventricular tachycardia) (HCC) Paroxysmal supraventricular tachycardia documented in this encounter Care Teams Digester Capper Relationship Specialty Start Date End Date Roxana Graham NP [address] [place] [address] PCP - General Nurse Practitioner 11/30/23 Merlin Nunez MD Consulting Physician Cardiovascular Disease 04/17/20 documented as of this encounter
--- OUTSIDE RECORDS SUMMARY | 2024-12-08 03:47 | XMS_ITS | Encounter Summary ---
Author Organization [facility] Address [address] [place] [address] Care Team Providers Care Bulb Brander Name Role Phone Merlin Nunez MD Unavailable [phone] Micaela Sabillon NP Primary Care Provider [phone] Encounter Details Date Type Department Care Team (Late st Contact Info) Description 04/15/2023 Telephone [facility] Cardiology [address] [facility] [address] [place] [address] Jillian Menendez MD [address] [facility] [address] [place] [address] Social History Tobacco Use Types Packs/Day Years Used Date Smoking Tobacco: Every Day Cigarettes 0.1 44 Started: 11/22/1980 Smokeless Tobacco: Never Comments Unknown Sex and Gender Information Value Date Recorded Sex Assigned at Not on file Legal Sex Female 7:12 PM BILINGUAL RECRUITER Gender Identity Not on file Sexual Orientation Not on file documented as of this encounter Miscellaneous Notes * Telephone Encounter - Chantelle Ramos - 06/01/2023 11:20 AM CDT Pt states her son Tree Arvizu will be picking up her samples today. Contact: * Telephone Encounter - Jemima Rodriguez MA - 05/31/2023 2:07 PM CDT Samples ready for pickling operator. Left msg * Telephone Encounter - Chantelle Ramos - 05/31/2023 12:07 PM CDT Pt requesting samples of xarelto 20 mg. Contact: * Telephone Encounter - Analy Ac MA - 05/10/2023 3:06 PM CDT Samples at the front clerk for patient pickling operator. Patient notified. * Telephone Encounter - Chantelle Ramos - 05/10/2023 1:59 PM CDT Pt requesting samples of xarelto 20 mg. Contact: * Telephone Encounter - Analy Ac MA - 04/15/2023 1:29 PM CDT Samples at the front clerk for patient pickling operator. Patient notified. * Telephone Encounter - Chantelle Ramos - 04/15/2023 1:18 PM CDT Pt requesting samples of xarelto 20 mg. Contact: documented in this encounter Plan of Treatment Not on file documented as of this encounter Visit Diagnoses Not on filedocumented in this encounter Care Teams Bulb Brander Relationship Specialty Start Date End Date Micaela Sabillon NP PCP - General Nurse Practitioner 12/29/22 11/29/23 Merlin Nunez MD Consulting Physician Cardiovascular Disease 04/17/20 documented as of this encounter
--- OUTSIDE RECORDS SUMMARY | 2024-12-08 03:47 | XMS_ITS | Encounter Summary ---
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 Procedures Transthoracic Echo Complete W Doppler/CF Svetlana Carolina MD Phone: tel: fax: [facility] Referral ID Status Reason Start Date Expiration Date Visits Re quested Visits Authorized [id number] Closed 07/01/2021 07/31/2022 1 1 Encounter Details Date Type Department Care Team (Latest Contact Info) Description 08/08/2021 1:00 PM CDT Ancillary Procedure [facility] Medical [facility] Cardiology [address] [place] [address] Syncope and collapse; 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 Social History Tobacco Use Types Packs/Day Years Used Date Smoking Tobacco: Every Day Cigarettes 0.1 44 Started: 11/22/1980 Smokeless Tobacco: Never Comments Unknown Sex and Gender Information Value Date Recorded Sex Assigned at Not on file Legal Sex Female 7:12 PM WHITTLING ROOM OPERATOR Gender Identity Not on file Sexual Orientation Not on file documented as of this encounter Plan of Treatment Not on file documented as of this encounter Procedures Procedure Name Priority Date/Time Associated Diagnosis Comments TRANSTHORACIC ECHO (TTE) COMPLETE W DOPPLER/CF WO CONTRAST Routine 08/08/2021 1:56 PM CDT Syncope and collapse 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 documented in this encounter Results * TRANSTHORACIC ECHO (TTE) COMPLETE W DOPPLER/CF WO CONTRAST (08/08/2021 1:56 PM CDT) Anatomical Region Laterality Modality Ultrasound 08/08/2021 12:4 8 PM CDT Narrative 08/08/2021 6:13 PM CDT [facility] Cardiology [address], [place] [address] [address], [place] [address] P:[phone] P:[phone] Echocardiographic Report Patient Name: NI NERI : 1940 Study Date: 08/08/2021 12:48:23 PM Gender: F Tech: Location: [place] Ref.Provider: SVETLANA CAROLINA Height(Cm): 150 BSA: 1.52 Weight(Kg): 57.61 Heart Rate: 58 BP: 140/63 Quality: Good Order Provider: SVETLANA CAROLINA Procedures: Echocardiographic Report: Transthoracic echocardiogram with [...] Findings: Interpretation Site: Exam was interpreted at [facility]. Left Ventricle: Normal left ventricular systolic [...] Procedure Note Tristen Isaacs MD - 08/08/2021 [facility] Cardiology [address] [facility] [facility] [address], [place] [address] [address] [facility] [address] [address] [facility] [address] [address] P:[phone] P:[phone] Echocardiographic Report Patient Name: NI NERIPatient ID: [id number] : [id number] Date: 08/08/2021 12:48:23 PM Gender: FAccession #: [id number] Tech: Location: [place] Ref.Provider: SVETLANA CAROLINAHeight(Cm): 150 BSA: 1.52Weight(Kg): 57.61 Heart Rate: 58BP: 140/63 Quality: GoodOrder Provider: SVETLANA CAROLINA Procedures: Echocardiographic Report: Transthoracic echocardiogram with [...] 0.40 - 0.80 ] m/s MV Decel [id number] [ 150 - 200 ] msec PV Peak Vel0.73 [ 0.40 - 0.80 ] m/s TR Peak Vel3.12 [ 0.40 - 0.80 ] m/s TR Peak PG 39mmHg RVSP47.00 mmHg E'0.10 E/E' 6 Findings: Interpretation Site: Exam was interpreted at [facility]. 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
--- OUTSIDE RECORDS SUMMARY | 2024-12-08 03:47 | XMS_ITS | Encounter Summary ---
Author Organization [facility] Healthcare Address [address] [place] [address] Care Team Providers Care Systems Applications Programming Lead Name Role Phone Merlin Nunez MD Unavailable [phone] Roxana Graham NP Primary Care Provider [phone] Encounter Details Date Type Department Care Team (Late st Contact Info) Description 01/24/2024 Telephone [facility] Medical Group Cardiology [address] [facility] [address] [place] [address] Jillian Menendez MD [address] [place] [address] Social History Tobacco Use Types Packs/Day Years Used Date Smoking Tobacco: Every Day Cigarettes 0.1 44 Started: 11/22/1980 Smokeless Tobacco: Never Comments Unknown Sex and Gender Information Value Date Recorded Sex Assigned at Not on file Legal Sex Female 7:12 PM AWS SOFTWARE DEVELOPMENT ENGINEER Gender Identity Not on file Sexual Orientation Not on file documented as of this encounter Miscellaneous Notes * Telephone Encounter - Adelina Chang RN - 01/24/2024 7:43 AM CST Spoke with pt. Reviewed note and pt will call PCP SOFTWARE DEVELOPMENT ENGINEER * Telephone Encounter - Adelina Chang RN - 01/24/2024 7:43 AM CST ----- Message from Jillian Menendez MD sent at 01/23/2024 1:29 PM AWS SOFTWARE DEVELOPMENT ENGINEER ----- Pt w/ cough, please tell her we got the CXR results, looked fine, no pneumonia. FU w/ GRIEVANCE MANAGER Roxana Graham. ----- Message ----- From: Luz Mccracken MA Sent: 01/20/2024 1:13 PM AWS SOFTWARE DEVELOPMENT ENGINEER To: Jillian Menendez MD SOFTWARE DEVELOPMENT ENGINEER documented in this encounter Plan of Treatment Not on file documented as of this encounter Visit Diagnoses Not on filedocumented in this encounter Care Teams Systems Applications Programming Lead Relationship Specialty Start Date End Date Roxana Graham NP [address] [place] [address] PCP - General Nurse Practitioner 11/30/23 Merlin Nunez MD Consulting Physician Cardiovascular Disease 04/17/20 documented as of this encounter
--- OUTSIDE RECORDS SUMMARY | 2024-12-08 03:47 | XMS_ITS | Encounter Summary ---
Author Organization [facility] Medical Group Address [address] [place] [address] Care Team Providers Care Set Rider Name Role Phone Merlin Nunez MD Unavailable [phone] Micaela Sabillon NP Primary Care Provider [phone] Encounter Details Date Type Department Care Team (Late st Contact Info) Description 02/01/[address] [facility] Medical [facility] Cardiology [address] [facility] [address] [place] [address] Jillian Menendez MD [address] [facility] [address] [place] [address] Social History Tobacco Use Types Packs/Day Years Used Date Smoking Tobacco: Every Day Cigarettes 0.1 44 Started: 11/22/1980 Smokeless Tobacco: Never Comments Unknown Sex and Gender Information Value Date Recorded Sex Assigned at Not on file Legal Sex Female 7:12 PM APPLICATION CHEMIST Gender Identity Not on file Sexual Orientation Not on file documented as of this encounter Miscellaneous Notes * Telephone Encounter - Analy Ac MA - 02/22/2023 3:29 PM CDT Noted. * Telephone Encounter - Ese Williamson - 02/22/2023 2:34 PM CDT Pt called to state that she will be able to moss picker her samples on Wednesday. Contact [phone] * Telephone Encounter - Luz Mccracken MA - 02/22/2023 11:07 AM CDT LM for pt informing her that her samples are ready for moss picker * Telephone Encounter - Chantelle Ramos - 02/22/2023 10:49 AM CDT Pt requesting samples of Xarelto 20 mg Contact [phone] * Telephone Encounter - Analy Ac MA - 02/01/2023 3:28 PM CDT Samples at the vest front presser for patient moss picker. Patient notified. * Telephone Encounter - Ese Williamson - 02/01/2023 1:46 PM CDT Pt requesting samples of Xarelto 20 mg Contact [phone] documented in this encounter Plan of Treatment Not on file documented as of this encounter Visit Diagnoses Not on filedocumented in this encounter Care Teams Set Rider Relationship Specialty Start Date End Date Micaela Sabillon NP PCP - General Nurse Practitioner 12/29/22 11/29/23 Merlin Nunez MD Consulting Physician Cardiovascular Disease 04/17/20 documented as of this encounter
--- OUTSIDE RECORDS SUMMARY | 2024-12-08 03:47 | XMS_ITS | Encounter Summary ---
Author Organization [facility] Medical Group Address [address] [place] [address] Care Team Providers Care Project Buyer Name Role Phone Merlin Nunez MD Unavailable [phone] Roxana Graham NP Primary Care Provider [phone] Encounter Details Date Type Department Care Team (Late st Contact Info) Description 05/15/2022 Telephone [facility] Cardiology [address] [place] [address] Jillian Menendez MD [address] [facility] [address] [place] [address] Social History Tobacco Use Types Packs/Day Years Used Date Smoking Tobacco: Every Day Cigarettes 0.1 44 Started: 11/22/1980 Smokeless Tobacco: Never Comments Unknown Sex and Gender Information Value Date Recorded Sex Assigned at Not on file Legal Sex Female 7:12 PM SEWER LINE REPAIRER Gender Identity Not on file Sexual Orientation Not on file documented as of this encounter Miscellaneous Notes * Telephone Encounter - Yary Hoffmann RN - 05/18/2022 9:01 AM CDT Spoke with pt, reviewed Afib and discussed her medications-she says she is on a very fixed income and if it is not affordable she may need to see about switching to something else-pt has samples for now but is going to check with her pharmacy and let us know if she needs further assistance. Discussed AFIB at length-pt said she is feeling fine just a little tired from time to time-denies any CP, SOB or palpitations-pt aware of when to contact office with any concerns. She appreciated the call. * Telephone Encounter - Jillian Menendez MD - 05/15/2022 4:03 PM CDT Pt seen on Wed, had a lot to talk about and I discovered that she had new onset PAF noted on monitor 12/2021 (I had never seen the results), so started pt on AC etc. She didn't seem to grasp everything, understandably. Please see my note and call pt today or Wednesday, see if she understands a fib, and if she has any questions. Thanks- elu documented in this encounter Plan of Treatment Not on file documented as of this encounter Visit Diagnoses Not on filedocumented in this encounter Care Teams Project Buyer Relationship Specialty Start Date End Date Roxana Graham NP [facility] [place] [address] PCP - General Nurse Practitioner 07/01/21 12/28/22 Merlin Nunez MD Consulting Physician Cardiovascular Disease 04/17/20 documented as of this encounter
--- OUTSIDE RECORDS SUMMARY | 2024-12-08 03:47 | XMS_ITS | Encounter Summary ---
Author Organization [facility] Medical Group Address [address] [place] [address] Care Team Providers Care Flame Hardening Machine Setter Name Role Phone Merlin Nunez MD Unavailable [phone] Roxana Graham NP Primary Care Provider [phone] Encounter Details Date Type Department Care Team (Late st Contact Info) Description 08/12/2021 Telephone [facility] Cardiology [address] [facility] [address] [place] [address] Jillian Menendez MD [address] [facility] [address] [place] [address] Social History Tobacco Use Types Packs/Day Years Used Date Smoking Tobacco: Every Day Cigarettes 0.1 44 Started: 11/22/1980 Smokeless Tobacco: Never Comments Unknown Sex and Gender Information Value Date Recorded Sex Assigned at Not on file Legal Sex Female 7:12 PM DISTANCE EDUCATION COORDINATOR Gender Identity Not on file Sexual Orientation Not on file documented as of this encounter Miscellaneous Notes * Telephone Encounter - Adelina Chang RN - 08/12/2021 11:27 AM CDT Result reviewed with pt. Verbalized understanding. * Telephone Encounter - Venu Lopez - 08/12/2021 10:42 AM CDT Pt requesting echo results from 08/08.Thank you Contact:[phone] documented in this encounter Plan of Treatment Not on file documented as of this encounter Visit Diagnoses Not on filedocumented in this encounter Care Teams Flame Hardening Machine Setter Relationship Specialty Start Date End Date Roxana Graham NP [facility] [place] [address] PCP - General Nurse Practitioner 07/01/21 12/28/22 Merlin Nunez MD Consulting Physician Cardiovascular Disease 04/17/20 documented as of this encounter
--- OUTSIDE RECORDS SUMMARY | 2024-12-08 03:47 | XMS_ITS | Encounter Summary ---
Author Organization [facility] Address [address] [place] [address] Care Team Providers Care French Comber Name Role Phone Merlin Nunez MD Unavailable [phone] Roxana Graham NP Primary Care Provider [phone] Reason for Referral * Procedure (Routine) - Closed Specialty Diagnoses / Procedures Referred By Jong santos Referred To Contact Cardiology Diagnoses Syncope and collapse Jillian Menendez MD Phone: tel: fax: [facility] Cardiology [address] [place] [address] Phone: tel: fax: Referral ID Status Reason Start Date Expiration Date V isits Requested Visits Authorized [id number] Closed Specialty Services Required 01/18/2024 04/17/2024 1 1 Scheduling Instructions PROCEDURE/TEST ORDERED: loop implant-medtronic LOCATION: DATE OF SERVICE: 01/19 INSURANCE: [facility] DIAGNOSIS: recurrent syncope ORDERING PROVIDER: HALEY ADDITIONAL DETAILS: Question Answer Please select the performing region: [facility] [[id number]] Please select the performing department: [facility] MRYVL [[id number]] # of visits: 1 ENT RECRUITER Encounter Details Date Type Department Care Team (Late st Contact Info) Description 01/11/2024 Telephone [facility] Cardiology [address] [place] [address] Jillian Menendez MD [address] [facility] [facility] [address] [facility] [address] [place] [address] Social History Tobacco Use Types Packs/Day Years Used Date Smoking Tobacco: Every Day Cigarettes 0.1 44 Started: 11/22/1980 Smokeless Tobacco: Never Comments Unknown Sex and Gender Information Value Date Recorded Sex Assigned at Not on file Legal Sex Female 7:12 PM STUDENT RECRUITER Gender Identity Not on file Sexual Orientation Not on file documented as of this encounter Miscellaneous Notes * Telephone Encounter - Jemima Cosme RN - 01/11/2024 4:06 PM STUDENT RECRUITER Pt scheduled for medtronic loop implant on 01/19 at 1100 with ELU at . Instructions reviewed with pt, written instructions provided. Pt verbalizes understanding. Advised pt to call with any questions or concerns. Pt will hold xarelto 2 days prior, Medtronic rep emailed. ENT RECRUITER documented in this encounter Plan of Treatment Scheduled Referrals Name Type Priority Associated Diagnoses Order Schedule Ambulatory referral to Cardiology Outpatient Referral Routine Syncope and collapse Expected: 01/25/2024 (Approximate), Expires: 01/11/2025 documented as of this encounter Visit Diagnoses Diagnosis Syncope and collapse- Primary documented in this encounter Care Teams French Comber Relationship Specialty Start Date End Date Roxana Graham NP [address] [place] [address] PCP - General Nurse Practitioner 11/30/23 Merlin Nunez MD Consulting Physician Cardiovascular Disease 04/17/20 documented as of this encounter
--- OUTSIDE RECORDS SUMMARY | 2024-12-08 03:47 | XMS_ITS | Encounter Summary ---
Author Organization [facility] Healthcare Address [address] [place] [address] Care Team Providers Care Automobile Accessories Installer Name Role Phone Merlin Nunez MD Unavailable [phone] Roxana Graham NP Primary Care Provider [phone] Encounter Details Date Type Department Care Team (Late st Contact Info) Description 04/06/2024 Telephone [facility] Cardiology [address] [facility] [address] [place] [phone] Marianela Mullen NP [address] [place] [address] Social History Tobacco Use Types Packs/Day Years Used Date Smoking Tobacco: Every Day Cigarettes 0.1 44 Started: 11/22/1980 Smokeless Tobacco: Never Comments Unknown Sex and Gender Information Value Date Recorded Sex Assigned at Not on file Legal Sex Female 7:12 PM UPPER INSPECTOR Gender Identity Not on file Sexual Orientation Not on file documented as of this encounter Miscellaneous Notes * Telephone Encounter - Jemima Escobedo MA - 05/01/2024 9:53 AM CDT Spoke with patient and is aware that samples are ready for pickup. Patient stated that son Tree will be to meat pickler samples. * Telephone Encounter - Chantelle Lamb - 05/01/2024 8:38 AM CDT Pt requesting samples of xarelto 20 mg. Contact: * Telephone Encounter - Analy Ac MA - 04/06/2024 9:20 AM CDT Samples at the front attendant for patient meat pickler. LM for patient. * Telephone Encounter - Chantelle Lamb - 04/06/2024 8:32 AM CDT Pt requesting samples of xarelto 20 mg. Contact: documented in this encounter Plan of Treatment Not on file documented as of this encounter Visit Diagnoses Not on filedocumented in this encounter Care Teams Automobile Accessories Installer Relationship Specialty Start Date End Date Roxana Graham NP [address] [place] [address] PCP - General Nurse Practitioner 11/30/23 Merlin Nunez MD Consulting Physician Cardiovascular Disease 04/17/20 documented as of this encounter
--- OUTSIDE RECORDS SUMMARY | 2024-12-08 03:47 | XMS_ITS | Encounter Summary ---
Author Organization [facility] Address [address] [facility] [address] [place] [address] Care Team Providers Care Pan Washer Name Role Phone Merlin Nunez MD Unavailable [phone] Micaela Sabillon NP Primary Care Provider [phone] Reason for Visit * Reason Comments Follow-up 6 mo Encounter Details Date Type Department Care Team (Late st Contact Info) Description 06/28/2023 1:30 PM CDT Office Visit [facility] Cardiology [address] [facility] [address] [place] [address] Marianela Mullen NP [address] [facility] [address] [place] [address] Paroxysmal atrial fibrillation (CMS/HCC) (HCC) (Primary Dx); Chronic anticoagulation; Coronary artery disease involving un[place]et coronary artery of unalakleet heart without angina pectoris; Essential hypertension Social History Tobacco Use Types Packs/Day Years Used Date Smoking Tobacco: Every Day Cigarettes 0.1 44 Started: 11/22/1980 Smokeless Tobacco: Never Tobacco Cessation:Ready to Q uit: Not Asked; Counseling Given: Not Answered Comments Unknown Sex and Gender Information Value Date Recorded Sex Assigned at Not on file Legal Sex 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 Gender Identity Not on file Sexual Orientation Not on file documented as of this encounter Last Filed Vital Signs Vital Sign Reading Time Taken Comments Blood Pressure 128/70 06/28/2023 1:34 PM CDT Pulse 54 06/28/2023 1:34 PM CDT Temperature - - Respiratory Rate - - Oxygen Saturation 99% 06/28/2023 1:34 PM CDT Inhaled Oxygen Concentration - - Weight 53.5 kg (118 lb) 06/28/2023 1:34 PM CDT Height 149.9 cm (4' 11 ) 06/28/2023 1:34 PM CDT Body Mass Index 23.83 06/28/2023 1:34 PM CDT documented in this encounter Progress Notes * Marianela Mullen NP - 06/28/2023 1:30 PM CDT Images from the original note were not included. [facility] Cardiology [address] [place] [address] Date of Visit: 06/28/2023 Patient ID: Ni Neri 1940 Chief Complaint: Ni Neri is a 82 y.o. female who is an established patient of Dr. Menendez with a history ofCAD, PAF and syncope returning to the office for Routine follow-up. History of Present Illness: Ni Neri is a 82 y.o. female whom I was asked to see at the request of Roxana Graham NP, for my advice and opinion regarding her syncope. History of UT. also hypertension, COPD, chronic backpain with spinal [...] she will fall, staggers. She switch from Dr. richard he did Dr. Yvette Brown and and [...] 2 months ago while working in the [employer] ???it hit me.?? She suddenly felt like [...] she was able to work in the [employer] for 6 hours a day for 2 days, with occasional wheezing but no chest pain. 04/15/2020 Note from [facility] vascular physician Dr. Merlin Nunez reviewed. She suffered an inferior UT (presenting primarily with neck and jaw pain) [...] 02/18/2021 reviewed, patient apparently was seen at [facility] for chest pain, rule out UT, discharged home. Unsteady on her feet. EKG today: NSR rate 63, left axis deviation, short IN interval without delta wave, nonspecific T-wave flattening common doubt any old UT by EKG. 07/22/2021 office visit with CARRIE [...] not have the problem prior to her UT in March 2020. She bruises easily. She [...] not had any further episodes of syncope. ECG showed sinus arrhythmia, LAD, LAFB, cannot rule out septal infarct, rate 81 beats per minute. 05/13/[address] Menendez: My heart's ok but I can hardly walk. Some CP on right side in February, didn't feel like old UT, Roxana Graham did an EKG and sent [...] drawn last week through Roxana Graham NP. 06/18/2022 office visit with CARRIE Mullen: Xarelto was started at the last visit. She returns today with her son for follow-up. She continues to have problems with her back pain and weakness in the legs. Her pain management doctor repeated an MRI which showed that the spine is worse and wants her tosee a neurosurgeon. She has questions about her [...] impaction. She has also been to an business coordinator and is being treated for both glaucoma [...] is had no further episodes of syncope. Social: [place] in 12/2018. 4 children but oldest son fr cancer 2021 age 62. Records that I personally reviewed on the day of this visit include: (the interpretation is outlined in the HPI above) 12/29/[address] Menendez I have also reviewed: allergies, current medications, past family history, past medical history, past social history, past surgical history and problem list Review of Systems Constitutional: Positive for malaise/fatigue. Negative for weight gain and weight loss. Eyes: Positive for visual disturbance. Cardiovascular: Negative for chest pain, claudication, dyspnea on exertion, leg swelling, near-syncope, orthopnea, palpitations, paroxysmal nocturnal dyspnea and syncope. Respiratory: Negative for cough, shortness of breath and sleep disturbances due to breathing. Hematologic/Lymphatic: Negative for bleeding problem. Does not bruise/bleed easily. Musculoskeletal: Positive for back pain. Neurological: Positive for focal weakness (both legs). Negative for dizziness and light-headedness. Vital Signs: BP 128/70 (BP Location: Left arm, Patient Position: Sitting) Pulse 54 Ht 149.9 cm (4' 11 ) Wt53.5 kg (118 lb) SpO2 99% BMI 23.83 kg/m?? Physical Exam Constitutional: General: She is [...] mouth daily, Disp: 90 tablet, Rfl: 2 omeprazole (PriLOSEC) 40 mg capsule, Take 1 [...] taking: Reported on 05/13/2022), Disp: , Rfl: nitroglycerin (NITROSTAT) 0.4 mg SL tablet, Place 1 tablet (0.4 mg total) under the tongue every 5 (five) minutes as needed for chest pain (Patient not taking: Reported on 06/28/2023), Disp: 25 tablet,Rfl: 3 Lab Results Component Value Date POTASSIUM 4.3 04/17/2020 BUNSER 13 04/17/2020 CREATININE 0.54 (L) 04/17/2020 CHOL 135 04/15/2020 TRIG 144 04/15/2020 LDLCALC 57 04/15/2020 HDL 49 04/15/2020 Assessment: Diagnoses and all orders for this visit: Paroxysmal atrial fibrillation (CMS/HCC) (HCC) (Primary) Chronic anticoagulation Coronary artery disease involving unalakleet coronary artery of unalakleet heart without angina pectoris Essential hypertension Plan/Recommendations: She has a history of paroxysmal atrial fibrillation. On exam today she sounds like she is maintaining sinus rhythm. She is not on rate controlling medication because she has not had any AFib with RVR. I reviewed bleeding precautions she needs to be aware of while on systemic oral anticoagulation. Continue Xarelto. She has a history of coronary artery disease s/p UT and PCI in March of 2020. LV function was normal on echo in July 2021. LDL is at goal. Aspirin has been stopped because of Xarelto to reduce bleeding risk particularly with her history of anemia. Continue pravastatin. Blood pressure is at goal. Continue losartan. Return to the office for routine follow-up with Dr. Menendez in 6 months. Call sooner with questions or concerns. SHARRI Palomares- Nurse Practitioner with [facility] Cardiology This note is dictated and transcribed using [employer] Software. Outside Event Sales Specialist variancesmay occur. Despite proofreading, typographical errors may occur. documented in this encounter Plan of Treatment Not on file documented as of this encounter Visit Diagnoses Diagnosis Paroxysmal atrial fibrillation (CMS/HCC) (HCC)- Primary Atrial fibrillation Chronic anticoagulation Encounter for long-term (current) use of anticoagulants Coronary artery disease involving unal[place] coronary artery of unalakleet heart without angina pectoris Essential hypertension Unspecified essential hypertension documented in this encounter Discontinued Medications Medication Sig Discontinue Reason Start Date End Da te busPIRone (BUSPAR) 10 mg tabletIndications:Gen eralized Anxiety Disorder Take 10 mg by mouth 2 (two) times a day Discontinued by another clinician 06/28/2023 cyclobenzaprine (FLEXERIL) 10 mg tablet Take 10 mg by mouth 3 (three) times a day as needed for muscle spasms Therapy completed 06/28/2023 ipratropium-albuteroL (DUO-NEB) 0.5-2.5 mg/3 mL nebulizer solution 3 mL daily Therapy completed 06/28/2023 gabapentin ER (GRALISE) 600 mg tablet extended release 24 hr Take 600 mg by mouth 3 (three) times a day Therapy completed 06/28/2023 fluticasone propionate (FLONASE) 50 mcg/actuation nasal spray Administer 1 spray into each nostril daily Alternate therapy 06/28/2023 fluticasone propion-salmeteroL (ADVAIR DISKUS) 500-50 mcg/dose diskus inhaler Inhale 1 puff 2 (two) times a day Rinse mouth with water after use. Do not swallow. Therapy completed 06/28/2023 montelukast (SINGULAIR) 10 mg tablet Take 10 mg by mouth nightly Therapy completed 06/28/2023 tiotropium (SPIRIVA) 18 mcg per inhalation capsule Place 1 capsule into inhaler and inhale daily Therapy completed 06/28/2023 documented as of this encounter Historical Medications * This list may reflect changes made after this encounter. ipratropium (ATROVENT) 21 mcg (0.03 %) nasal spray Administer 2 sprays into each nostril 2 (two) times a day 05/05/2023 dorzolamide-ruel loL (COSOPT) 22.3-6.8 mg/mL ophthalmic solution Administer 1 drop into both eyes 2 (two) times a day 06/22/2023 added in this encounter Care Teams Pan Washer Relationship Specialty Start Date End Date Micaela Sabillon NP PCP - General Nurse Practitioner 12/29/22 11/29/23 Merlin Nunez MD Consulting Physician Cardiovascular Disease 04/17/20 documented as of this encounter
--- OUTSIDE RECORDS SUMMARY | 2024-12-08 03:47 | XMS_ITS | Encounter Summary ---
Author Organization [facility] Healthcare Address [address] [place] [address] Care Team Providers Care Remanufacturing Technician Name Role Phone Merlin Nunez MD Unavailable [phone] Roxnaa Graham NP Primary Care Provider [phone] Encounter Details Date Type Department Care Team (Late st Contact Info) Description 12/29/[address] 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 States her daughter, Khadijah, will pick them up tomorrow.Confirmed upcoming appt on 01/11/24 with EU ICATION SOFTWARE DEVELOPER * Telephone Encounter - Chantelle Lamb - 12/29/2023 12:05 PM CST Pt requesting samples of xarelto 20 mg. Contact: ICATION SOFTWARE DEVELOPER documented in this encounter Plan of Treatment Not on file documented as of this encounter Visit Diagnoses Not on filedocumented in this encounter Care Teams Remanufacturing Technician Relationship Specialty Start Date End Date Roxana Graham NP [address] [place] [address] PCP - General Nurse Practitioner 11/30/23 Merlin Nunez MD Consulting Physician Cardiovascular Disease 04/17/20 documented as of this encounter
--- OUTSIDE RECORDS SUMMARY | 2024-12-08 03:47 | XMS_ITS | Encounter Summary ---
Author Organization [facility] Address [address] [place] [address] Care Team Providers Care Recycling Sorter Name Role Phone Merlin Nunez MD Unavailable [phone] Roxana Graham NP Primary Care Provider [phone] Reason for Referral * Cardiology (Routine) - Closed Specialty Diagnoses / Procedures Referred By Contac t Referred To Contact Cardiology Diagnoses Paroxysmal atrial fibrillation (CMS/HCC) (HCC) PSVT (paroxysmal supraventricular tachycardia) (HCC) Status post placement of implantable loop recorder Syncope and collapse Procedures DEVICE CHECK - REMOTE Jillina Menendez MD Phone: tel: fax: [facility] Referral ID Status Reason Start Date Expiration Date Visits Re quested Visits Authorized [id number] Closed 01/20/2024 07/20/[address]NALLING ENGINEER * Cardiology (Routine) - Closed Specialty Diagnoses / Procedures Referred By Contmerna t Referred To Contact Cardiology Diagnoses Paroxysmal atrial fibrillation (CMS/HCC) (HCC) PSVT (paroxysmal supraventricular tachycardia) (HCC) Status post placement of implantable loop recorder Syncope and collapse Procedures DEVICE CHECK - REMOTE Jillian Menendez MD Phone: tel: fax: [facility] Referral ID Status Reason Start Date Expiration Date Visits Re quested Visits Authorized [id number] Closed 01/20/202407/2007/20/[address]NALLING ENGINEER * Cardiology (Routine) - Closed Specialty Diagnoses / Procedures Referred By Contac t Referred To Contact Diagnoses Paroxysmal atrial fibrillation (CMS/HCC) (HCC) PSVT (paroxysmal supraventricular tachycardia) (HCC) Status post placement of implantable loop recorder Syncope and collapse Procedures DEVICE CHECK - REMOTE Jillian Menendez MD Phone: tel: fax: Referral ID Status Reason Start Date Expiration Date Visits Re quested Visits Authorized [id number] Closed 01/20/2024 07/20/[address]NALLING ENGINEER * Cardiology (Routine) - Closed Specialty Diagnoses / Procedures Referred By Jong santos Referred To Contact Diagnoses Paroxysmal atrial fibrillation (CMS/HCC) (HCC) PSVT (paroxysmal supraventricular tachycardia) (HCC) Status post placement of implantable loop recorder Syncope and collapse Procedures DEVICE CHECK - REMOTE Jillian Menendez MD Phone: tel: fax: Referral ID Status Reason Start Date Expiration Date Visits Re quested Visits Authorized [id number] Closed 01/20/2024 07/20/[address]NALLING ENGINEER Encounter Details Date Type Department Care Team (Late st Contact Info) Description 01/20/2024 Orders Only [facility] Cardiology [address] [place] [phone] Jillian Menendez MD [address] [facility] [address] [place] [phone] Paroxysmal atrial fibrillation (CMS/HCC) (HCC) (Primary Dx); PSVT (paroxysmal supraventricular tachycardia); Status post placement of implantable loop recorder; Syncope and collapse Social History Tobacco Use Types Packs/Day Years Used Date Smoking Tobacco: Every Day Cigarettes 0.1 44 Started: 11/22/1980 Smokeless Tobacco: Never Comments Unknown Sex and Gender Information Value Date Recorded Sex Assigned at Not on file Legal Sex Female 7:12 PM RAILWAY 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 Dx; PAF, PSVT, Syncope. [facility] remote f/u. As of 05/15/24-remote monitoring for alerts. Pt unable to afford the monthly copays from her Insurance. Co. Unscheduled remote d/t patient telephone message regarding syncope episode on 10/08/24. Presenting rhythm-VS, regular 60 bpm. No episodes noted since 09/06/2024. Pause episode noted on 09/06/24, egm-false d/t undersensed r-waves. [facility]link remote f/u 11/27/2024. Li Nguyen RN Jillian Menendez MD [facility] PROCEDU RES Final Result * DEVICE CHECK - REMOTE (09/05/2024 2:28 PM CDT) Anatomical Region Laterality Modality Other Narrative 11/24/2024 1:56 PM RAILWAY SIGNALLING ENGINEER [employer] LNQ22 Loop Recorder. Dx; PAF, PSVT, Syncope. [facility]. As of 05/15/24-remote monitoring for alerts. Pt unable to afford the monthly copays from her Insurance. Co. ILR remote f/u. Battery function-Good. Presenting rhythm-VS, regular 50 bpm. Pause episode noted on 08/01/2024, egm-false d/t undersensed r-waves. [facility]link remote f/u 11/27/2024. Li Nguyen RN Jillian Menendez MD CV CARDIAC SERVICES PROCEDU RES Final Result * DEVICE CHECK - REMOTE (04/20/2024 2:12 [...] ??Continue remote monitoring ELKIN Lewis Device Specialist Jillian Menendez MD [facility] CARDIAC SERVICES PROCEDU RES Final Result * DEVICE CHECK - REMOTE (02/29/2024 1:55 PM CDT) Anatomical Region Laterality Modality Other Narrative 03/12/2024 12:15 PM CDT Med[employer]onic [id number] Loop Recorder. Dx; PAF, PSVT, Syncope. DOI 01/19/2024-[facility]. Carelink remote f/u. Routine ILR remote. Normal [...] Visit Diagnoses Diagnosis Paroxysmal atrial fibrillation (CMS/HCC) ([facility])- Primary Atrial fibrillation PSVT (paroxysmal supraventricular tachycardia) ([facility]) Paroxysmal supraventricular tachycardia Status post placement of implantable loop recorder Syncope and collapse Paroxysmal atrial fibrillation (CMS/HCC) (HCC) Atrial fibrillation PSVT (paroxysmal supraventricular tachycardia) (HCC) Paroxysmal supraventricular tachycardia Status post placement of implantable loop recorder Syncope and collapse Paroxysmal atrial fibrillation (CMS/HCC) (HCC) Atrial fibrillation PSVT (paroxysmal supraventricular tachycardia) (HCC) Paroxysmal supraventricular tachycardia Status post placement of implantable loop recorder Syncope and collapse Paroxysmal atrial fibrillation (CMS/HCC) (HCC) Atrial fibrillation PSVT (paroxysmal supraventricular tachycardia) (HCC) Paroxysmal supraventricular tachycardia Status post placement of implantable loop recorder Syncope and collapse Paroxysmal atrial fibrillation (CMS/HCC) (HCC) Atrial fibrillation PSVT (paroxysmal supraventricular tachycardia) (HCC) Paroxysmal supraventricular tachycardia Status post placement of implantable loop recorder Syncope and collapse documented in this encounter Care Teams Recycling Sorter Relationship Specialty Start Date End Date Roxana Graham NP [address] [place] [id number] PCP - General Nurse Practitioner 11/30/23 Merlin Nunez MD Consulting Physician Cardiovascular Disease 04/17/20 documented as of this encounter
--- OUTSIDE RECORDS SUMMARY | 2024-12-08 03:47 | XMS_ITS | Encounter Summary ---
Author Organization [facility] Address [address] [facility] [address] [place] [address] Care Team Providers Care Arabic Linguist Name Role Phone Merlin Nunez MD Unavailable [phone] Roxana Graham NP Primary Care Provider [phone] Encounter Details Date Type Department Care Team (Late st Contact Info) Description 02/03/2022 Telephone [facility] Cardiology [address] [facility] [address] [place] [address] Jillian Menendez MD [address] [facility] [address] [place] [address] Social History Tobacco Use Types Packs/Day Years Used Date Smoking Tobacco: Every Day Cigarettes 0.1 44 Started: 11/22/1980 Smokeless Tobacco: Never Comments Unknown Sex and Gender Information Value Date Recorded Sex Assigned at Not on file Legal Sex Female 7:12 PM PIN PUSHER Gender Identity Not on file Sexual Orientation Not on file documented as of this encounter Miscellaneous Notes * Telephone Encounter - Yary Hoffmann RN - 02/03/2022 12:24 PM CDT Called pt-she didn't know what to do with monitor now that it is done. Told her she just need to package up everything and take it to [employer] and drop it off and that it is already paid for. Pt verbalized understanding and appreciated the assistance. * Telephone Encounter - Chantelle Ramos - 02/03/2022 11:51 AM CDT Pt requesting call in regard to her monitor. Contact: documented in this encounter Plan of Treatment Not on file documented as of this encounter Visit Diagnoses Not on filedocumented in this encounter Care Teams Arabic Linguist Relationship Specialty Start Date End Date Roxana Graham NP [facility] [place] [address] PCP - General Nurse Practitioner 07/01/21 12/28/22 Merlin Nunez MD Consulting Physician Cardiovascular Disease 04/17/20 documented as of this encounter
--- OUTSIDE RECORDS SUMMARY | 2024-12-08 03:47 | XMS_ITS | Encounter Summary ---
Author Organization [facility] Healthcare Address [address] [place] [address] Care Team Providers Care Buffet Server Name Role Phone Merlin Nunez MD Unavailable [phone] Roxana Graham NP Primary Care Provider [phone] Encounter Details Date Type Department Care Team (Late st Contact Info) Description 01/25/2024 Orders Only [facility] Medical Group Cardiology [address] [facility] [address] [facility] 102 [place] [address] Jillian Menendez MD [address] [facility] 102 [place] [address] Social History Tobacco Use Types Packs/Day Years Used Date Smoking Tobacco: Every Day Cigarettes 0.1 44 Started: 11/22/1980 Smokeless Tobacco: Never Comments Unknown Sex and Gender Information Value Date Recorded Sex Assigned at Not on file Legal Sex Female 7:12 PM METAL SPINNER Gender Identity Not on file Sexual Orientation Not on file documented as of this encounter Plan of Treatment Not on file documented as of this encounter Procedures Procedure Name Priority Date/Time Associated Diagnosis Comments CARDIOLOGY DOCUMENT SCAN Routine 01/19/2024 1:56 PM METAL SPINNER documented in this encounter Results * Cardiology Document Scan (01/19/2024 1:56 PM METAL SPINNER) Anatomical Region Laterality Modality Other Jillian Menendez MD CV CARDIAC SERVICES PROCEDU RES Final Result documented in this encounter Visit Diagnoses Not on filedocumented in this encounter Care Teams Buffet Server Relationship Specialty Start Date End Date Roxana Graham NP [address] [place] [address] PCP - General Nurse Practitioner 11/30/23 Merlin Nunez MD Consulting Physician Cardiovascular Disease 04/17/20 documented as of this encounter
--- OUTSIDE RECORDS SUMMARY | 2024-12-08 03:47 | XMS_ITS | Encounter Summary ---
Author Organization [facility] Medical [facility] Address [address] [place] [address] Care Team Providers Care Fitting Room Attendant Name Role Phone Merlin Nunez MD Unavailable [phone] Roxana Graham NP Primary Care Provider [phone] Reason for Visit * Reason Comments Follow-up 3 wk * Consultation (Routine) - Closed Specialty Diagnoses / Procedures Referred By Contac t Referred To Contact Cardiology Diagnoses Atherosclerosis of [place] coronary artery with other form of angina pectoris, unspecified whether [place] or transplanted heart (HCC) Nuno Lozano MD [address] [place] [address] [place] [address] Phone: tel: fax: [facility] Medical [facility] Cardiology [address] [place] [address] [place] [address] Phone: tel: fax: Referral ID Status Reason Start Date Expiration Date V isits Requested Visits Authorized [id number] Closed Specialty Services Required 12/25/2021 06/23/2022 8 8 Encounter Details Date Type Department Care Team (Late st Contact Info) Description 06/18/2022 1:30 PM CDT Office Visit [facility] Medical [facility] Cardiology [address] [facility] 162 [facility] [address] [place] [address] Marianela Mullen NP [address] [place] [id number] Paroxysmal atrial fibrillation (CMS/HCC) (HCC) (Primary Dx); Chronic anticoagulation; Coronary artery disease involving [place] coronary artery of [place] heart without angina pectoris Social History Tobacco Use Types Packs/Day Years Used Date Smoking Tobacco: Every Day Cigarettes 0.1 44 Started: 11/22/1980 Smokeless Tobacco: Never Comments Unknown Sex and Gender Information Value Date Recorded Sex Assigned at Not on file 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 Gender Identity Not on file Sexual Orientation Not on file documented as of this encounter Last Filed Vital Signs Vital Sign Reading Time Taken Comments Blood Pressure 118/62 06/18/2022 1:34 PM CDT Pulse 57 06/18/2022 1:34 PM CDT Temperature - - Respiratory Rate - - Oxygen Saturation 99% 06/18/2022 1:34 PM CDT Inhaled Oxygen Concentration - - Weight 52.2 kg (115 lb) 06/18/2022 1:34 PM CDT Height 149.9 cm (4' 11 ) 06/18/2022 1:34 PM CDT Body Mass Index 23.23 06/18/2022 1:34 PM CDT documented in this encounter Progress Notes * Marianela Mullen NP - 06/18/2022 1:30 PM CDT Images from the original note were not included. [facility] Cardiology [address] [place] [address] Date of Visit: 06/18/2022 Patient ID: Ni Neri 1940 Chief Complaint: Ni Neri is a 81 y.o. female who is an established patient of Dr. Menendez with a history ofCAD, PAF and syncope returning to the office for follow-up after anticoagulation was started. History of Present Illness: Ni Neri is a 81 y.o. female whom I was asked to see at the request of Roxana Graham NP, for my advice and opinion regarding her syncope. History of NV. also hypertension, COPD, chronic backpain with spinal [...] she will fall, staggers. She switch from Dr[place]iz[facility] so he did Dr. Yvette Brown and [...] 2 months ago while working in the [employer] ???it hit me.?? She suddenly felt like [...] she was able to work in the [employer] for 6 hours a day for 2 days, with occasional wheezing but no chest pain. 04/15/2020 Note from [facility] vascular physician Dr. Merlin Nunez reviewed. She suffered an inferior NV (presenting primarily with neck and jaw pain) and was transferred to [facility]. She underwent so PCI with a Xience drug-eluting stent to the occluded proximal RCA, and also a stent in the PDA. 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 Office note from Quinn Villarrealsánchez 02/18/2021 reviewed, patient apparently was seen at [facility] for chest pain, rule out NV, discharged home. Unsteady on her feet. EKG today: NSR rate 63, left axis deviation, short NC interval without delta wave, nonspecific T-wave flattening common doubt any old NV by EKG. 07/22/2021 office visit with CARRIE [...] not have the problem prior to her NV in March 2020. She bruises easily. She [...] side in February, didn't feel like old NV, Roxana Graham did an EKG and sent [...] her surgical risk from a cardiac standpoint. Social: [place] in 12/2018. 4 children but oldest son fr cancer 2021 age 62. Records that I personally reviewed on the day of this visit include: (the interpretation is outlined in the HPI above) 05/13/[address] Menendez, 03/11/2020 labs and today's POC lipid panel result I have also reviewed: allergies, current medications, [...] patient is not nervous/anxious. Vital Signs: BP 118/62 (BP Location: Left arm, Patient Position: Sitting) Pulse 57 Ht 149.9 cm (4' 11 ) Wt52.2 kg (115 lb) SpO2 99% BMI 23.23 kg/m?? Physical Exam Constitutional: General: She is [...] DAY, Disp: 90 tablet, Rfl: 1 ??? nitroglycerin [...] daily, Disp: 30 tablet, Rfl: 11 ??? rivaroxaban (Xarelto) 20 mg tablet, Take 1 tablet (20 mg total) by mouth daily, Disp: 30 tablet, Rfl: 11 ??? busPIRone (BUSPAR) 10 mg tablet, Take 10 mg by mouth 2 (two) times a day (Patient not taking: No sig reported), Disp: , Rfl: ??? cyclobenzaprine (FLEXERIL) 10 mg tablet, Take 10 mg by mouth 3 (three) times a day as needed for muscle spasms (Patient not taking: No sig reported), Disp: , Rfl: ??? escitalopram (LEXAPRO) 20 mg tablet, TAKE 1 TABLET EVERY DAY BY ORAL ROUTE FOR 30 DAYS. (Patient not taking: No sig reported), Disp: , Rfl: ??? gabapentin ER (GRALISE) 600 mg tablet extended release 24 hr, Take 600 mg by mouth 3 (three) times a day (Patient not taking: No sig reported), Disp: , Rfl: ??? ipratropium-albuteroL (DUO-NEB) 0.5-2.5 mg/3 mL nebulizer solution, 3 mL daily (Patient not taking: No sig reported), Disp: , Rfl: ??? montelukast (SINGULAIR) 10 mg tablet, Take 10 mg by mouth nightly (Patient not taking: No sig reported), Disp: , Rfl: ??? naloxone HCl (NARCAN NASL), Administer into affected nostril(s) (Patient not taking: No sig reported), Disp: , Rfl: ??? tiotropium (SPIRIVA) 18 mcg per inhalation capsule, Place 1 capsule into inhaler and inhale daily (Patient not taking: No sig reported), Disp: , Rfl: Lab Results Component Value Date POTASSIUM 4.3 04/17/2020 BUNSER 13 04/17/2020 CREATININE 0.54 (L) 04/17/2020 CHOL 135 04/15/2020 TRIG 144 04/15/2020 LDLCALC 57 04/15/2020 HDL 49 04/15/2020 Assessment: Diagnoses and all orders for this visit: Paroxysmal atrial fibrillation (CMS/HCC) (HCC) (Primary) - TSH reflex to free T4; Future Chronic anticoagulation - CBC without differential; Future Coronary artery disease involving [place] coronary artery of [place] heart without angina pectoris - POCT lipid panel Plan/Recommendations: Xarelto has been started for paroxysmal atrial fibrillation. I reviewed bleeding precautions with the patient and her son. I reviewed the pros and cons of Xarelto versus warfarin. The patient decidedterell will remain on Xarelto and we will provide samples for her when possible. She understands that she cannot solely rely on samples from us. Check a CBC to reassess H&H now that she has been on Xarelto for few weeks. Also check a TSH reflex T4 to rule out hyperthyroidism (she had unexplained weight loss and development of PAF). Dr. Menendez's last note mentioned consider starting Cardizem because her heart rate is low and blood pressure is not as high as last visit, I will defer starting th is. She has a history of coronary artery disease s/p NV and PCI in March of 2020. LV function was normal on echo in July 2021. LDL is at goal. She would be an acceptable risk for spine surgery if she decides to pursue this. Aspirin has been stopped because of Xarelto to reduce bleeding risk particularly with her history of anemia. Continue pravastatin. Return to the office for routine follow-up with Dr. Menendez in 6 months. Call sooner with questions or concerns. SHARRI Palomares- Nurse Practitioner with [facility] This note is dictated and transcribed using [employer] Software. Material Handling Equipment [employer]ore variancesmay occur. Despite proofreading, typographical errors may occur. documented in this encounter Plan of Treatment Not on file documented as of this encounter Procedures Procedure Name Priority Date/Time Associated Diagnosis Comments THYROID FUNCTION CASCADE Routine 06/24/2022 2:10 PM CDT Paroxysmal atrial fibrillation (CMS/HCC) (HCC) CBC WITHOUT DIFFERENTIAL Routine 06/24/2022 2:10 PM CDT Chronic anticoagulation POCT LIPID PANEL Routine 06/18/2022 2:22 PM CDT Coronary artery disease involving [place] coronary artery of [place] heart without angina pectoris documented in this encounter Results * TSH reflex to free T4 (06/24/2022 2:10 PM CDT) TSH 1.840 0.450 - 4.500 uIU/mL [facility] - 01 Comment: No apparent thyroid disorder. Additional testing not indicated. In rare instances, Secondary Hypothyroidism as well as Subclinical Hypothyroidism have been reported in some patients with normal TSH values. Blood specimen (specimen) 06/24/2022 2:10 PM CDT 06/24/2022 Narrative [facility] - 06/25/2022 9:10 AM CDT Performed at: ?? - [facility] ??[id number] Process Improvement Consultant: Santos Gutiérrez PhD, Phone: ??[phone] Marianela Mullen FLUOROSCOPE OPERATOR LAB BLOOD ORDERABLES Lindsay l Result Performing Organization Address City/[facility]/ZIP Co de Phone Number [facility] - * CBC without differential (06/24/2022 2:10 PM CDT) WBC 9.1 3.4 - 10.8 x10E3/uL [facility] - 01 RBC 4.60 3.77 - 5.28 x10E6/uL [facility] - 01 Hgb 12.6 11.1 - 15.9 g/dL [facility] - 01 Hct 39.4 34.0 - 46.6 % [facility] - 01 MCV 86 79 - 97 fL [facility] - 01 MCH 27.4 26.6 - 33.0 pg [facility] - 01 MCHC 32.0 31.5 - 35.7 g/dL [facility] - 01 Rdw 14.0 11.7 - 15.4 % [facility] - 01 Platelets 322 150 - 450 x10E3/uL [facility] - 01 Blood specimen (specimen) 06/24/2022 2:10 PM CDT 06/24/2022 Narrative [facility] - 06/25/2022 7:10 AM CDT Performed at: ??01 - [facility] [address] ??[id number] Process Improvement Consultant: Santos Gutiérrez PhD, Phone: ??[phone] Marianela Mullen FLUOROSCOPE OPERATOR LAB BLOOD ORDERABLES Lindsay l Result Performing Organization Address [facility]/ZIP Co de Phone Number [facility] - * POCT lipid panel (06/18/2022 2:22 PM CDT) Cholesterol, POC 124 mg/dL HDL, POC 55 mg/dL Triglycerides, POC 128 mg/dL LDL Cholesterol POC 44 mg/dL Chol/HDL Ratio, POC 2.3 Non-HDL Cholesterol, POC 69 mg/dL Cholesterol Total, POC 124 mg/dL Capillary blood 06/18/2022 2 :22 PM CDT Marianela Mullen FLUOROSCOPE OPERATOR POINT OF CARE TEST ORDERA BLES Final Result documented in this encounter Visit Diagnoses Diagnosis Paroxysmal atrial fibrillation (CMS/HCC) (HCC)- Primary Atrial fibrillation Chronic anticoagulation Encounter for long-term (current) use of anticoagulants Coronary artery disease involving [place] coronary artery of [place] heart without angina pectoris documented in this encounter Care Teams Fitting Room Attendant Relationship Specialty Start Date End Date Roxana Graham NP [facility] [place] [address] PCP - General Nurse Practitioner 07/01/21 12/28/22 Merlin Nunez MD Consulting Physician Cardiovascular Disease 04/17/20 documented as of this encounter
--- OUTSIDE RECORDS SUMMARY | 2024-12-08 03:47 | XMS_ITS | Encounter Summary ---
Author Organization [facility] Healthcare Address [address] [place] [address] Care Team Providers Care Sales Representative Jewelry Name Role Phone Merlin Nunez MD Unavailable [phone] Micaela Sabillon NP Primary Care Provider [phone] Encounter Details Date Type Department Care Team (Late st Contact Info) Description 08/24/2023 Telephone [facility] Medical Group Cardiology [address] [facility] [address] [place] [address] Jillian Menendez MD [address] [facility] [address] [place] [address] Social History Tobacco Use Types Packs/Day Years Used Date Smoking Tobacco: Every Day Cigarettes 0.1 44 Started: 11/22/1980 Smokeless Tobacco: Never Comments Unknown Sex and Gender Information Value Date Recorded Sex Assigned at Not on file 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 LM for patient. * Telephone Encounter - Chantelle Ramos - 08/24/2023 2:50 PM CDT Pt requesting samples of xarelto 20 mg. States her daughter can steel pickler morning. Contact: documented in this encounter Plan of Treatment Not on file documented as of this encounter Visit Diagnoses Not on filedocumented in this encounter Care Teams Sales Representative Jewelry Relationship Specialty Start Date End Date Micaela Sabillon NP PCP - General Nurse Practitioner 12/29/22 11/29/23 Merlin Nunez MD Consulting Physician Cardiovascular Disease 04/17/20 documented as of this encounter
--- OUTSIDE RECORDS SUMMARY | 2024-12-08 03:47 | XMS_ITS | Encounter Summary ---
Author Organization [facility] Healthcare Address [address] [place] [address] Care Team Providers Care Machine Iii Coremaker Name Role Phone Merlin Nunez MD Unavailable [phone] Micaela Sabillon NP Primary Care Provider [phone] Encounter Details Date Type Department Care Team (Late st Contact Info) Description 10/08/2023 Telephone [facility] Medical Group Cardiology [address] 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 ING METER ATTENDANT * Telephone Encounter - Chantelle Lamb - 11/02/2023 8:44 AM CST Pt requesting samples of xarelto 20 mg. Contact: ING METER ATTENDANT * Telephone Encounter - Jemima Rodriguez MA - 10/08/2023 3:00 PM CST Pt informed we have samples ready for picking table worker ING METER ATTENDANT * Telephone Encounter - Radha Soto - 10/08/2023 2:06 PM CST Pt requesting samples of rivaroxaban (Xarelto) 20 mg tablet. Contact:[phone] ING METER ATTENDANT documented in this encounter Plan of Treatment Not on file documented as of this encounter Visit Diagnoses Not on filedocumented in this encounter Care Teams Machine Iii Coremaker Relationship Specialty Start Date End Date Micaela Sabillon NP PCP - General Nurse Practitioner 12/29/22 11/29/23 Merlin Nunez MD Consulting Physician Cardiovascular Disease 04/17/20 documented as of this encounter
--- OUTSIDE RECORDS SUMMARY | 2024-12-08 03:47 | XMS_ITS | Encounter Summary ---
Author Organization [facility] Medical Group Address [address] [place] [address] Care Team Providers Care Speech Lang Path Therapist Name Role Phone Merlin Nunez MD Unavailable [phone] Roxana Graham NP Primary Care Provider [phone] Reason for Visit * Reason Onset Date Comments New Pt Records 07/01/2021 Encounter Details Date Type Department Care Team (Late st Contact Info) Description 07/01/2021 Telephone [facility] Medical Group Cardiology [address] [place] [address] Jemima Rodriguez MA New Pt Records Social History Tobacco Use Types Packs/Day Years Used Date Smoking Tobacco: Every Day Cigarettes 0.1 44 Started: 11/22/1980 Smokeless Tobacco: Never Comments Unknown Sex and Gender Information Value Date Recorded Sex Assigned at Not on file 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 Gender Identity Not on file Sexual Orientation Not on file documented as of this encounter Miscellaneous Notes * Telephone Encounter - Jemima Rodriguez MA - 07/01/2021 9:03 AM CDT Spoke with Reina following up on fax from yesterday requesting records for appt at this morning documented in this encounter Plan of Treatment Not on file documented as of this encounter Visit Diagnoses Not on filedocumented in this encounter Care Teams Speech Lang Path Therapist Relationship Specialty Start Date End Date Roxana Graham NP [address] [place] [address] PCP - General Nurse Practitioner 07/01/21 12/28/22 Merlin Nunez MD Consulting Physician Cardiovascular Disease 04/17/20 documented as of this encounter
--- OUTSIDE RECORDS SUMMARY | 2024-12-08 03:47 | XMS_ITS | Encounter Summary ---
Author Organization [facility] Healthcare Address [address] [place] [address] Care Team Providers Care Nonprofit Manager Name Role Phone Merlin Nunez MD Unavailable [phone] Roxana Graham NP Primary Care Provider [phone] Encounter Details Date Type Department Care Team (Late st Contact Info) Description 05/11/[address] 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 She contacted her insurance company and was told the $50 is her copay for the remote monitoring. She will be charged a copay with every remote transmission which are scheduledand process monthly (Q 31-42 days). Ni stated I cannot afford these copays. I guess I will have to turn the monitor in. I have worked so hard and I live on a fixed income. I still have a house payment and my water bill went up from normally $50 per month to $110 for this last month. I have always been very independent and I am trying to take care of everything but it is just so hard now. I just want to give up. I guess I should be glad I woke up this morning. I have to make payments on my medical bills and I cannot take on another bill. I instructed her to leave here monitor plugged in and we will continue to monitor for alerts. If anabnormal event comes in we will be able to advise her and her doctor. For now I will cancel her scheduled remote appointment. We discussed options such as we could do reports quarterly. She could come into the office for looprecorder visits quarterly if that would be more cost effective for her. She said she didn't know ifher insurance would cover an office interrogation. Patient knows that we can make adjustments to her remote f/u in the future. She will let us know ifsomething changes with her finances. Royer and Awa please make yourselves a note of monitoring this patient's remotes for alert notifications at this time. * Telephone Encounter - Li Nguyen RN - 05/11/2024 12:10 PM CDT Returned phone call and spoke with patient. She stated I got this bill for the monitoring of my loop recorder I guess. So I called the [facility] department where this bill came from and the lady I spoke to said that I will be getting charged $50 every month. I am on a fixed income and I can't afford this. Social Security income doesn't go very far. I am trying to keep everything paid but it's getting harder. Is this fee for renting the equipment or what is it for? I didn't know having this loop recorder was going to cost this much. I was never told any of this. I explained the fee is for the reading, processing, and physician review of her loop recorder report that comes in monthly. I am not sure what her insurance coverage is as I do not handle insurance. I encouraged her to call her insurance company, give them the code, explain she is monitored for abnormal heart rhythms d/t recent stroke, and ask what her insurance will pay. I told her to give me call back so we can discuss a plan for her depending on her insurance coverage. She verbalized understanding. * Telephone Encounter - Jemima Cosme RN - 05/11/2024 10:35 AM CDT Will forward to Ranjan. * Telephone Encounter - Chantelle Lamb - 05/11/2024 10:30 AM CDT Pt states she was told she was going to be charged $50 every month for her device checks. Pt wants to know if it can be checked every 6 months instead because she cannot afford to pay $50 every month. States she has not been having any issues either. Contact: documented in this encounter Plan of Treatment Not on file documented as of this encounter Visit Diagnoses Not on filedocumented in this encounter Care Teams Nonprofit Manager Relationship Specialty Start Date End Date Roxana Graham NP [address] [place] [address] PCP - General Nurse Practitioner 11/30/23 Merlin Nunez MD Consulting Physician Cardiovascular Disease 04/17/20 documented as of this encounter
--- OUTSIDE RECORDS SUMMARY | 2024-12-08 03:47 | XMS_ITS | Encounter Summary ---
Author Organization [facility] Address [address] [place] [address] Care Team Providers Care Marine Design Engineer Name Role Phone Merlin Nunez MD Unavailable [phone] Roxana Graham NP Primary Care Provider [phone] Reason for Referral * Cardiology (Routine) - Closed Specialty Diagnoses / Procedures Referred By Contac t Referred To Contact Diagnoses Syncope and collapse Procedures Event Monitor, 30 Day Event Marianela Mullen NP [address] [address] Phone: tel: fax: Referral ID Status Reason Start Date Expiration Date Visits Re quested Visits Authorized [id number] Closed 01/01/2022 01/31/2023 1 1 SPRINKLER FITTER Reason for Visit * Reason Comments Coronary Artery Disease Syncope 3 mo f/u * Consultation (Routine) - Closed Specialty Diagnoses / Procedures Referred By Contac t Referred To Contact Cardiology Diagnoses [place] [address] [place] [address] [place] [address] Phone: tel: fax: [facility] Cardiology [address] [facility] [address] [place] [address] Phone: tel: fax: Referral ID Status Reason Start Date Expiration Date V isits Requested Visits Authorized [id number] Closed Specialty Services Required 06/30/2021 12/27/2021 8 8 Encounter Details Date Type Department Care Team (Late st Contact Info) Description 01/01/2022 2:30 PM FIRE SPRINKLER FITTER Office Visit [facility] Cardiology [address] [place] [address] Marianela Mullen NP [address] [place] [address] Syncope and collapse (Primary Dx); 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; Bilateral leg weakness Social History Tobacco Use Types Packs/Day Years Used Date Smoking Tobacco: Every Day Cigarettes 0.1 44 Started: 11/22/1980 Smokeless Tobacco: Never Comments Unknown Sex and Gender Information Value Date Recorded Sex Assigned at Not on file Legal Sex Female 7:12 PM FIRE SPRINKLER FITTER Gender Identity Not on file Sexual Orientation Not on file documented as of this encounter Last Filed Vital Signs Vital Sign Reading Time Taken Comments Blood Pressure 130/70 01/01/2022 2:46 PM FIRE SPRINKLER FITTER Pulse 66 01/01/2022 2:46 PM FIRE SPRINKLER FITTER Temperature - - Respiratory Rate - - Oxygen Saturation 97% 01/01/2022 2:46 PM FIRE SPRINKLER FITTER Inhaled Oxygen Concentration - - Weight 54.4 kg (120 lb) 01/01/2022 2:46 PM FIRE SPRINKLER FITTER Height 149.9 cm (4' 11 ) 01/01/2022 2:46 PM FIRE SPRINKLER FITTER Body Mass Index 24.24 01/01/2022 2:46 PM FIRE SPRINKLER FITTER documented in this encounter Patient Instructions * Patient Instructions* Marianela Mullen NP - 01/01/2022 2:30 PM FIRE SPRINKLER FITTER The passing out could be from a dangerous heart rhythm called ventricular tachycardia (too fast heart beat) or heart block (too slow heart beat). Either of these can be life threatening. The only wayto detect this is to continuously monitor your heart rhythm. We will try a 30-day heart monitor to see if you pass out again while wearing the monitor, we can see what your heart rhythm does when youpass out. If you don't pass out during the 30 days you are wearing the monitor, we would next recommend an implanted loop recorder. SPRINKLER FITTER documented in this encounter Progress Notes * Marianela Mullen NP - 01/01/2022 2:30 PM CST Images from the original note were not included. [facility] Cardiology [address] [place] [address] Date of Visit: 01/01/2022 Patient ID: Ni Neri 1940 Chief Complaint: Ni Neri is a 81 y.o. female who is a newly established patient of Dr. Menendez with a history of CAD and syncope returning to the office over due for follow up. History of Present Illness: Ni Neri is a 81 y.o. female whom I was asked to see at the request of Roxana Graham NP, for my advice and opinion regarding her syncope. History of SD. also hypertension, COPD, chronic backpain with spinal [...] 2 months ago while working in the [employer] ???it hit me.?? She suddenly felt like [...] she was able to work in the [employer] for 6 hours a day for 2 days, with occasional wheezing but no chest pain. 04/15/2020 Note from [facility] vascular physician Dr. Merlin Nunez reviewed. She suffered an inferior SD (presenting primarily with neck and jaw pain) and was transferred to [facility]. She underwent so PCI with a Xience drug-eluting stent to the occluded proximal RCA, and also a stent in the PDA. 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 Office note from Quinn Graham 02/18/2021 reviewed, patient apparently was seen at [place] for chest pain, rule out SD, discharged home. Unsteady on her feet. EKG today: NSR rate 63, left axis deviation, short [place] interval without delta wave, nonspecific T-wave flattening common doubt any old SD by EKG. 07/22/2021 office visit with CARRIE [...] not have the problem prior to her SD in March 2020. She bruises easily. She continues to smoke. She has a high level of personal stress right now because her son is actively dying from metastatic lung cancer. Social: [place] in 12/2018. 4 children. Records that I personally reviewed on the day of this visit include: (the interpretation is outlined in the HPI above) 07/01/[address] Menendez, 07/22/2021 office note from myself, 08/08/2021 echocardiogram report I have also reviewed: allergies, current [...] patient is not nervous/anxious. Vital Signs: BP 130/70 (BP Location: Left arm, Patient Position: Sitting) Pulse 66 Ht 149.9 cm (4' 11 ) Wt54.4 kg (120 lb) SpO2 97% BMI 24.24 kg/m?? 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 We tried a 30 day event monitor last June but she had some confusion about it and terminated the test afteronly a day or 2. I explained to her the concern about a lethal heart rhythm problem and asked her if she would try a 30 day event monitor again. She agreed. She does not have syncope during those 30 days, implanted loop recorder should be considered. She has a history of coronary artery disease s/p SD and PCI in March of 2020. LV function was normal on echo in July 2021. When I saw her last year I explained that it would be appropriate to stopPlavix and continue her on aspirin because she did not have any other areas of significant disease aside from the lesion that was stented. After this discussion she decided she still wanted to remainon Plavix. Today she is reporting a lot of bruising and therefore I recommended she continue her Plavix but stop the aspirin 81 mg daily and she agreed. Otherwise for her coronary artery disease, in addition to continuing clopidogrel, continue pravastatin and losartan. I again told her that it is unlikely her leg weakness is in any way related to her SD or her heart disease. This is much more likely to be related to her spinal stenosis. Continue care with pain management team. We will follow-up with her over the phone after we have the results of the event monitor. Would like her to return to the office for follow-up with Dr. Menendez in 4-5 months, but call us sooner withany other questions or concerns. SHARRI Palomares- Nurse Practitioner with [facility] This note is dictated and transcribed using Smartdate Direct Software. Truck Bracer variancesmay occur. Despite proofreading, typographical errors may occur. 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 Bilateral leg weakness Muscle weakness (generalized) documented in this encounter Discontinued Medications Medication Sig Discontinue Reason Start Date End Da te aspirin 81 mg enteric coated tablet Take 1 tablet (81 mg total) by mouth daily Therapy completed 04/18/2020 01/01/2022 documented as of this encounter Orders Outpatient Referral Count Last Ordered Date Fir st Ordered Date AMB REFERRAL TO CARDIOLOGY 1 01/01/2022 documented in this encounter Care Teams Marine Design Engineer Relationship Specialty Start Date End Date Roxana Graham NP [facility] [place] [address] PCP - General Nurse Practitioner 07/01/21 12/28/22 Merlin Nunez MD Consulting Physician Cardiovascular Disease 04/17/20 documented as of this encounter
--- OUTSIDE RECORDS SUMMARY | 2024-12-08 03:47 | XMS_ITS | Encounter Summary ---
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 (HCC) (Primary Dx); Paroxysmal atrial fibrillation (CMS/HCC) (HCC); Chronic anticoagulation; Essential hypertension Social History Tobacco Use Types Packs/Day Years Used Date Smoking Tobacco: Every Day Cigarettes 0.1 44 Started: 11/22/1980 Smokeless Tobacco: Never Tobacco Cessation:Ready to Q uit: Not Asked; Counseling Given: Not Answered Comments Unknown Sex and Gender Information Value Date Recorded Sex Assigned at Not on file Legal Sex Female 7:12 PM ANALYTICAL SCIENCES DIRECTOR Gender Identity Not on file Sexual Orientation Not on file documented as of this encounter Last Filed Vital Signs Vital Sign Reading Time Taken Comments Blood Pressure 122/72 11/30/2023 3:45 PM ANALYTICAL SCIENCES DIRECTOR Pulse 68 11/30/2023 3:45 PM ANALYTICAL SCIENCES DIRECTOR Temperature - - Respiratory Rate - - Oxygen Saturation 98% 11/30/2023 3:45 PM ANALYTICAL SCIENCES DIRECTOR Inhaled Oxygen Concentration - - Weight 54.9 kg (121 lb) 11/30/2023 3:45 PM ANALYTICAL SCIENCES DIRECTOR Height 149.9 cm (4' 11 ) 11/30/2023 3:45 PM ANALYTICAL SCIENCES DIRECTOR Body Mass Index 24.44 11/30/2023 3:45 PM ANALYTICAL SCIENCES DIRECTOR documented in this encounter Ordered Prescriptions Prescription Sig Dispense Quantity Refills Last Filled Start Date End Date nitroglycerin (NITROSTAT) 0.4 mg SL tabletIndications: 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 [facility] Cardiology [address] [place] [address] Date of Visit: 11/30/2023 Patient ID: Ni Neri 1940 Chief Complaint: Ni Neri is a 83 y.o. female who is an established patient of Dr. Menendez with a history ofCAD, PAF and syncope returning to the office for complaint of chest pain. History of Present Illness: Ni Neri is a 83 y.o. female whom I was asked to see at the request of Roxana Graham NP, for my advice and opinion regarding her syncope. History of IL. also hypertension, COPD, chronic backpain with spinal [...] 2 months ago while working in the [employer] ???it hit me.?? She suddenly felt like [...] she was able to work in the [employer] for 6 hours a day for 2 days, with occasional wheezing but no chest pain. 04/15/2020 Note from [facility] physician Dr. Merlin Nunez reviewed. She suffered an inferior IL (presenting primarily with neck and jaw pain) and was transferred to [facility]. She underwent so PCI with a Xience drug-eluting stent to the occluded proximal RCA, and also a stent in the PDA. 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 Office note from Quinn Graham 02/18/2021 reviewed, patient apparently was seen at [facility] for chest pain, rule out IL, discharged home. Unsteady on her feet. EKG today: NSR rate 63, left axis deviation, short [place] interval without delta wave, nonspecific T-wave flattening common doubt any old IL by EKG. 07/22/2021 office visit with CARRIE [...] not have the problem prior to her IL in March 2020. She bruises easily. She [...] side in February, didn't feel like old IL, Roxana Santos did an EKG and sent her to [...] impaction. She has also been to an epic [facility] specialist and is being treated for both glaucoma [...] chest pain that occurred some time around [place] (see telephone note 11/19/2023). She has had no recurrence since then. Feet aren't as swollen as they were before. No noticeable worsening of SOB, denies orthopnea or PND. She states she feels tired all the time and is sensitive to the cold. She went to PCP yesterday and had labs drawn. She was given atb (sinus infection?) and vitamin D. 12-lead ECG performed in the office today was independently interpreted by me and showed sinus rhythm, LAD, normal intervals, cannot rule out septal infarct, rate 56 bpm; compared to ECG 01/27/2022 no change other than slower heart rate. Social: [place] in 12/2018. 4 children but oldest son fr cancer 2021 age 62. Records that I personally reviewed on the day of this visit include: (the interpretation is outlined in the HPI above) 06/28/2023 office note from myself, today's ecg and ecg dated 01/27/22. I have also reviewed: allergies, current medications, past family history, past medical history, past social history, past surgical history and problem list Review of Systems Constitutional: Positive for malaise/fatigue. Negative for weight gain and weight loss. Cardiovascular: Positive for chest pain, dyspnea on exertion (chronic) and leg swelling. Negative for claudication, near-syncope, orthopnea, palpitations, paroxysmal nocturnal dyspnea and syncope. Respiratory: Negative for cough, shortness of breath and sleep disturbances due to breathing. Endocrine: Positive for cold intolerance. Hematologic/Lymphatic: Negative for bleeding problem. Does not bruise/bleed easily. Musculoskeletal: Positive for back pain. Neurological: Positive for paresthesias (chronic neuropathy bilat lower extremities). Negative for dizziness and light-headedness. Vital Signs: BP 122/72 (BP Location: Right arm, Patient Position: Sitting) Pulse 68 Ht 149.9 cm (4' 11 ) Wt 54.9 kg (121 lb) SpO2 98% BMI 24.44 kg/m?? Physical Exam Constitutional: General: She is [...] respiratory distress. Breath sounds: Normal breath sounds. Musculoskeletal: Right lower leg: No edema. 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 LV function was normal on echo in July 2021. LDL is at goal. Aspirin has been stopped because of Xarelto to reduce bleeding risk particularly with her history of anemia. She had a recent episode of severe chest pain which could have been angina. No recurrence. ECG today shows no new infarct. I recommend keeping SL NTG on hand and I taught her how to use it appropriately. Continue pravastatin. She agrees. She has a history of paroxysmal atrial fibrillation. She is maintaining sinus rhythm. She is not onrate controlling medication because she has not had any AFib with RVR. Continue Xarelto. Blood pressure is at goal. Continue losartan. Follow up with PCP regarding labs to make sure anemia is ruled out. Keep the previously scheduled follow-up with Dr. Menendez next month. Call sooner with questions or concerns. SHARRI Palomares- Nurse Practitioner with [facility] This note is dictated and transcribed using Stronghold Technology Direct Software. Radon Inspector variancesmay occur. Despite proofreading, typographical errors may occur. 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 (HCC) documented in this encounter Results * ECG 12 lead (11/30/2023) 11/30/2023 Marianela Mullen NP ECG ORDERABLES Final Res ult documented in this encounter Visit Diagnoses Diagnosis 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 (HCC)- Primary Paroxysmal atrial fibrillation (CMS/HCC) (HCC) Atrial fibrillation Chronic anticoagulation Encounter for long-term (current) use of anticoagulants Essential hypertension Unspecified essential hypertension documented in this encounter Discontinued Medications Medication Sig Discontinue Reason Start Date End Da te nitroglycerin (NITROSTAT) 0.[address] 1 tablet (0.4 mg total) under the tongue every 5 (five) minutes as needed for chest pain Reorder 01/26/2022 11/30/2023 documented as of this encounter Care Teams Stencil Cutter Machine Relationship Specialty Start Date End Date Roxana Graham NP [address] [place] [id number] PCP - General Nurse Practitioner 11/30/23 Merlin Nunez MD Consulting Physician Cardiovascular Disease 04/17/20 documented as of this encounter
--- OUTSIDE RECORDS SUMMARY | 2024-12-08 03:47 | XMS_ITS | Encounter Summary ---
Author Organization [facility] Address [address] [place] [address] Care Team Providers Care Investment Broker Name Role Phone Merlin Nunez MD Unavailable [phone] Micaela Sabillon NP Primary Care Provider [phone] Encounter Details Date Type Department Care Team (Late st Contact Info) Description 07/27/2023 Telephone [facility] Cardiology [address] [facility] [address] [place] [address] iJllian Menendez MD [address] [facility] [address] [place] [address] Social History Tobacco Use Types Packs/Day Years Used Date Smoking Tobacco: Every Day Cigarettes 0.1 44 Started: 11/22/1980 Smokeless Tobacco: Never Comments Unknown Sex and Gender Information Value Date Recorded Sex Assigned at Not on file Legal Sex Female 7:12 PM PORK CUTLET MAKER Gender Identity Not on file Sexual Orientation Not on file documented as of this encounter Miscellaneous Notes * Telephone Encounter - Jemima Escobedo MA - 07/27/2023 11:54 AM CDT Samples are ready for pickup. M to inform patient. * Telephone Encounter - Chantelle Ramos - 07/27/2023 10:37 AM CDT Pt requesting samples of xarelto 20 mg. Contact: documented in this encounter Plan of Treatment Not on file documented as of this encounter Visit Diagnoses Not on filedocumented in this encounter Care Teams Investment Broker Relationship Specialty Start Date End Date Micaela Sabillon NP PCP - General Nurse Practitioner 12/29/22 11/29/23 Merlin Nunez MD Consulting Physician Cardiovascular Disease 04/17/20 documented as of this encounter
--- OUTSIDE RECORDS SUMMARY | 2024-12-08 03:47 | XMS_ITS | Encounter Summary ---
Author Organization [facility] Address [address] [place] [address] Care Team Providers Care Leather Cutter Name Role Phone Merlin Nunez MD Unavailable [phone] Roxana Graham NP Primary Care Provider [phone] Encounter Details Date Type Department Care Team (Late st Contact Info) Description 01/20/2024 Orders Only [facility] Cardiology [address] [facility] [address] [place] [address] Jillian Menendez MD [address] [facility] [address] [place] [address] Subacute cough Social History Tobacco Use Types Packs/Day Years Used Date Smoking Tobacco: Every Day Cigarettes 0.1 44 Started: 11/22/1980 Smokeless Tobacco: Never Comments Unknown Sex and Gender Information Value Date Recorded Sex Assigned at Not on file Legal Sex Female 7:12 PM SOLID PROPELLANT PROCESSOR Gender Identity Not on file Sexual Orientation Not on file documented as of this encounter Plan of Treatment Not on file documented as of this encounter Procedures Procedure Name Priority Date/Time Associated Diagnosis Comments XR CHEST PA LATERAL 2 VIEWS Schedule Routine, Read Routine (OP Routine) 01/14/2024 11:45 AM SOLID PROPELLANT PROCESSOR Subacute cough documented in this encounter Results * XR Chest Pa Lateral 2 Views (01/14/2024 11:45 AM SOLID PROPELLANT PROCESSOR) Anatomical Region Laterality Modality Body, Chest N/A Radiographic Vivian ging us Jillian Menendez MD IMG XR PROCEDURES Final Res ult documented in this encounter Visit Diagnoses Diagnosis Subacute cough documented in this encounter Care Teams Leather Cutter Relationship Specialty Start Date End Date Roxana Graham NP [address] [place] [address] PCP - General Nurse Practitioner 11/30/23 Merlin Nunez MD Consulting Physician Cardiovascular Disease 04/17/20 documented as of this encounter
--- OUTSIDE RECORDS SUMMARY | 2024-12-08 03:47 | XMS_ITS | Encounter Summary ---
Author Organization [facility] Address [address] [place] [address] Care Team Providers Care Circular Saw Edge Fuser Name Role Phone Merlin Nunez MD Unavailable [phone] Roxana Graham NP Primary Care Provider [phone] Encounter Details Date Type Department Care Team (Late st Contact Info) Description 12/29/2021 Telephone [facility] Cardiology [address] [facility] [address] [place] [address] Jillian Menendez MD [address] [facility] [address] [place] [address] Social History Tobacco Use Types Packs/Day Years Used Date Smoking Tobacco: Every Day Cigarettes 0.1 44 Started: 11/22/1980 Smokeless Tobacco: Never Comments Unknown Sex and Gender Information Value Date Recorded Sex Assigned at Not on file Legal Sex Female 7:12 PM 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 AUDITOR Gender Identity Not on file Sexual Orientation Not on file documented as of this encounter Ordered Prescriptions Prescription Sig Dispense Quantity Refills Last Filled Start Date End Date losartan (COZAAR) 50 mg tablet Take 1 tablet (50 mg total) by mouth daily 90 tablet 1 12/29/2021 06/05/2022 documented in this encounter Miscellaneous Notes * Telephone Encounter - Francisca Deal MA - 12/29/2021 3:16 PM COUNTY AUDITOR Refills sent to [facility] TY AUDITOR * Telephone Encounter - Chantelle Ramos - 12/29/2021 1:52 PM CST Pt requesting refill for Losartan 50 mg, one tablet daily. Contact: TY AUDITOR documented in this encounter Plan of Treatment Not on file documented as of this encounter Visit Diagnoses Not on filedocumented in this encounter Discontinued Medications Medication Sig Discontinue Reason Start Date End Da te losartan (COZAAR) 50 mg tablet Take 50 mg by mouth daily Reorder 12/29/2021 documented as of this encounter Care Teams Circular Saw Edge Fuser Relationship Specialty Start Date End Date Roxana Graham NP [facility] [place] [address] PCP - General Nurse Practitioner 07/01/21 12/28/22 Merlin Nunez MD Consulting Physician Cardiovascular Disease 04/17/20 documented as of this encounter
--- OUTSIDE RECORDS SUMMARY | 2024-12-08 03:48 | XMS_ITS | Encounter Summary ---
Author Organization [facility] Address [address] [place] [address] Care Team Providers Care Sales Engineer Account Manager Name Role Phone Ginny Cordero Primary Care Pr ovider Reason for Visit * Reason Comments Chart Review Encounter Details Date Type Department Care Team (Late st Contact Info) Description 09/13/2019 SHOP/CHAP Initial Eligibility Review [facility] OP CASE MANAGEMENT [address] [place] [address] Yang Pinedo LCSW [address] [address] Social History Tobacco Use Types Packs/Day Years Used Date Smoking Tobacco: Never Assessed Comments Unknown Sex and Gender Information Value Date Recorded Sex Assigned at Not on file Legal Sex Female 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 Does not qualify for SHOP. documented in this encounter Plan of Treatment Not on file documented as of this encounter Visit Diagnoses Not on filedocumented in this encounter Care Teams Sales Engineer Account Manager Relationship Specialty Start Date End Date Ginny Cordero PA PCP - General 09/13/19 06/30/21 documented as of this encounter
--- OUTSIDE RECORDS SUMMARY | 2024-12-08 03:48 | XMS_ITS | Encounter Summary ---
Author Organization [facility] Healthcare Address [address] [place] [address] Care Team Providers Care Profiler Operator Name Role Phone Ginny Corderofrancia MATTHEW Primary Care Pr ovider Encounter Details Date Type Department Care Team (Latest Contact Info) Description 04/15/2020 3:00 AM CDT - 04/15/2020 4:00 AM CDT Surgery [facility] Cardiac Catheterization Lab [address] [place] [address] Arturo Nunez MD [address] [place] [address] PCI AMI REVASCULARIZATION SINGLE VESSEL (W ADAM) [id number] - [id number] Surgery Details Date/Time Status Location OR Service Patient Class Case Class Case Type Trauma Case? 04/15/2020 3:00 AM Posted CARDIAC UNDERWRITING INTERNSHIP CCL 01 Cardiovascular Emergency Emergent Panel 1 Procedure LRB Anes Op Region Wound Class Comments PCI AMI REVASCULARIZATION SI NGLE VESSEL (W ADAM) [id number] - [id number] N/A INSERT TEMPORARY PACEMAKER ( PPM) SINGLE LEAD 23706 N/A LEFT HEART CATHETERIZATION W ITH CORONARY ANGIOGRAPHY AND WITH OR WITHOUT LEFT VENTRICULOGRAM 31327 N/A Surgeon Surgeon Role Service Panel Arturo Nunez MD Primary Cardiovascula r 1 documented in this encounter Social History Tobacco Use Types Packs/Day Years Used Date Smoking Tobacco: Every Day Cigarettes 0.1 44 Started: 11/22/1980 Smokeless Tobacco: Never Tobacco Cessation:Ready to Q uit: Yes; Counseling Given: Yes Comments Unknown Sex and Gender Information Value Date Recorded Sex Assigned at Not on file 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 Please update the Problem List and refresh. Resolved Problems: No resolved hospital problems. DETAILS OF HOSPITAL STAY Presenting Problem/History of Present Illness: Patient is a 79 year old female who presented to [facility] ED in [place], [place] for chest pain and found to have an inferior wall ST- elevation PR. Patient was transferred to [facility] for emergent cardiac cath. Hospital Course: Patient underwent emergent cardiac cath with 2 ADAM placed to proximal to mid RCA AV groove and the PDA. Her EF was 55%.She tolerated the procedure well. No complications noted. Please see Dr Nunez'sprocedure report for full details. Patient was monitored closely in the ICU. No arrhythmias noted on telemetry. No complications in the 48 hours post cath. Patient has ambulated in room without difficulty. Heart rate is bradycardic and patient is unable to tolerate beta- massimo at this time. Operative Procedures Performed: Procedure(s): PCI AMI REVASCULARIZATION SINGLE VESSEL (W ADAM) C9606 [id number] INSERT TEMPORARY PACEMAKER (PPM) SINGLE LEAD [id number] LEFT HEART CATHETERIZATION WITH CORONARY ANGIOGRAPHY AND WITH OR WITHOUT LEFT VENTRICULOGRAM 55542 Discharge Details Physical Exam at Discharge: Discharge Condition: stable Pulse: 70 Resp: 16 BP: 116/66 Temp: 36.6 ??C (97.8 ??F) Weight: 73.5 kg (162 lb 0.6 oz) Pertinent Exam Findings at Discharge: right groin soft no hematoma Discharge Disposition: Discharge to home or self care Code Status at Discharge: Full Discharge Instructions: Activity Instructions Discharge Activity: Driving restrictions -Do not drive for 1 weeks or while taking pain medications. Discharge Activity: Lifting restrictions -Do NOT lift greater than 10 pounds for 2 weeks. Discharge Activity: Walking -You may walk as tolerated. Discharge activity: Shower -You may shower. No tub baths swimming or hot tubs for 2 weeks. Diet Instructions Adult Discharge Diet Diet Type: Low fat intake Discharge Medications: Current Medications TAKE these medications acetaminophen 325 mg tablet Take 2 tablets (650 mg total) by mouth every 4 (four) hours as needed for pain For: fever, pain Commonly known as: TYLENOL aspirin 81 mg enteric coated tablet Take 1 tablet (81 mg total) by mouth daily Start taking on: April 18, 2020 atorvastatin 40 mg tablet Take 1 tablet (40 mg total) by mouth daily after dinner Commonly known as: LIPITOR busPIRone 10 mg tablet Take 10 mg by mouth 2 (two) times a day For: repeated episodes of anxiety Commonly known as: BUSPAR gabapentin 300 mg capsule Take 300 mg by mouth 3 (three) times a day Commonly known as: NEURONTIN losartan-hydroCHLOROthiazide 50-12.5 mg per tablet Take 1 tablet by mouth daily Commonly known as: HYZAAR ProAir HFA 90 mcg/actuation inhaler Take 2 puffs by mouth 4 (four) times a day Generic drug: albuterol HFA ticagrelor 90 mg tablet Take 1 tablet (90 mg total) by mouth 2 (two) times a day Commonly known as: BRILINTA Outpatient Follow-Up: Contact Information for Follow-ups Arturo Nunez MD Specialty: Cardiovascular Disease, Internal Medicine, Interventional Cardiology Relationship: Consulting Physician [facility] KATHERINE [address] [place], [place] [address] [id number] Next Steps: Follow up Instructions: Follow up in 2 weeks. [phone] Questions: To provider: ARTURO NUNEZ Instructions for follow-up (appointment date and time): Follow up in 2 weeks. [phone] Cosigned by Arturo Nunez MD at 04/27/2020 8:33 AM CDT documented in this encounter Medications at Time of Discharge acetaminophen (TYLENOL) 325 mg tabletIndications :Fever,Pain Take 2 tablets (650 mg total) by mouth every 4 (four) hours as needed for pain 30 tablet 04/17/2020 albuterol HFA (PROVENTIL HFA,VENTOLIN HFA,PROAIR HFA) 90 mcg/actuation inhaler Take 2 puffs by mouth 4 (four) times a day aspirin 81 mg enteric coated tablet Take 1 tablet (81 mg total) by mouth daily 30 tablet 04/18/2020 01/01/2022 atorvastatin (LIPITOR) 40 mg tablet Take 1 tablet (40 mg total) by mouth daily after dinner 30 tablet 04/17/2020 07/22/2021 busPIRone (BUSPAR) 10 mg tabletIndications :Generalized Anxiety Disorder Take 10 mg by mouth 2 (two) times a day 06/28/2023 busPIRone (BUSPAR) 10 mg tablet Take by mouth every 12 hours 02/06/2020 07/01/2021 gabapentin ER (GRALISE) 600 mg tablet extended release 24 hr Take 600 mg by mouth 3 (three) times a day 06/28/2023 losartan-hydroCHL OROthiazide (HYZAAR) 50-12.5 mg per tablet Take 1 tablet by mouth daily 07/01/2021 ticagrelor (BRILINTA) 90 mg tablet Take 1 tablet (90 mg total) by mouth 2 (two) times a day 30 tablet 04/17/2020 07/01/2021 documented as of this encounter Ordered Prescriptions Prescription Sig Dispense Quantity Refills Last Filled Start Date End Date acetaminophen (TYLENOL) 325 mg tabletIndications: Fever,Pain Take 2 tablets (650 mg total) by mouth every 4 (four) hours as needed for pain 30 tablet 04/17/2020 ticagrelor (BRILINTA) 90 mg tablet Take 1 tablet (90 mg total) by mouth 2 (two) times a day 30 tablet 04/17/2020 1 atorvastatin (LIPITOR) 40 mg tablet Take 1 tablet (40 mg total) by mouth daily after dinner 30 tablet 04/17/2020 1 aspirin 81 mg enteric coated tablet Take 1 tablet (81 mg total) by mouth daily 30 tablet 11 04/18/2020 2 documented in this encounter Discharge Disposition Disposition Code Departure Means Destination Discharge to home or self care documented in this encounter Progress Notes * Arturo Nunez MD - 04/16/2020 9:52 AM CDT [facility]- Cardiology Daily Progress - Arturo Nunez MD, [facility] SUBJECTIVE: Ms. Neri sustained an inferior wall PR with ST elevation over the weekend she had 2 xience drug-eluting stents placed 1 was placed into the posterior descending artery and another 1 was placed in the proximal to mid segment of the right coronary artery AV groove. Her left ventricular ejection fraction is estimated roughly 55% with inferior basal wall motion abnormality. She was placed on aspirin and Brilinta for dual anti-platelet therapy. Her temporary pacemaker while be removed today she isokay for transfer to a telemetry bed out of the ICU OBJECTIVE: Vitals: 04/16/20 0430 04/16/20 0445 04/16/20 0500 04/16/20 0515 BP: 101/50 Pulse: 66 66 61 63 Resp: 19 18 19 17 Temp: TempSrc: SpO2: Weight: I/O last 2 completed shifts: In: 557 [I.V.:557] Out: 1590 [Urine:1590] No intake/output data recorded. Scheduled Medications Medication Dose Route Frequency ??? aspirin enteric coated tablet 81 mg 81 mg oral Daily ??? enoxaparin (LOVENOX) syringe 40 mg 40 mg subcutaneous Daily-2099 ??? famotidine (PEPCID) injection 20 mg 20 mg intravenous Daily ??? fluticasone propionate (FLONASE) 50 mcg/actuation nasal spray 2 spray 2 spray each nostril Daily ??? insulin lispro (HumaLOG) injection 1-2 Units 1-2 Units subcutaneous TID with meals ??? metoclopramide (REGLAN) injection 5 mg 5 mg intravenous Q8H TANYA ??? ticagrelor (BRILINTA) tablet 90 mg 90 mg oral BID General: No acute distress Neuro: Alert and oriented x3, moves all extremities well HEENT: NCAT Neck: No JVD, no bruits Chest: Diminished breath sounds bilaterally. No rales, rhonchi, or wheezes noted Cardiac: Regular S1, S2, Normal rate. No murmurs, rubs, or gallops noted. Extremities: No LE edema. Psych: appropriate mood and normal affect LABS: Recent Labs Lab Units 04/16/20 0814 04/15/20 0643 WBC K/cumm 14.7* 16.1* HEMOGLOBIN g/dL 11.5* 12.1 HEMATOCRIT % 35.9 37.4 PLATELETS K/cumm 273 329 Recent Labs Lab Units 04/16/20 0820 04/16/20 0814 04/15/20203604/15/20 0643 SODIUM mmol/L -- 140 -- -- 138 POTASSIUM PLASMA mmol/L -- 3.7 -- -- 4.0 CHLORIDE mmol/L -- 107 -- -- 106 CO2 mmol/L -- 24 -- -- 20* ANIONGAP mmol/L -- 9 -- -- 12 GLUCOSE mg/dL -- 112 -- -- 169 POC GLUCOSE MONITOR mg/dL 110 -- 105 < > -- BUN SERUM mg/dL -- 12 -- -- 21 CREATININE mg/dL -- 0.68 -- -- 0.62 CALCIUM mg/dL -- 8.3* -- -- 8.5 ALBUMIN g/dL -- -- -- -- 3.8 ALK PHOS Units/L -- -- -- -- 87 ALT Units/L -- -- -- -- 16 AST Units/L -- -- -- -- 47* BILIRUBIN TOTAL mg/dL -- -- -- -- 0.2 < > = values in this interval not displayed. Recent Labs Lab Units 04/15/20 1453 APTT sec 26 Recent Labs Lab Units 04/15/20 0938 CHOLESTEROL mg/dL 135 TRIGLYCERIDES mg/dL 144 HDL mg/dL 49 RADIOLOGY: Reviewed. EKG: Results for orders placed during the hospital encounter of 04/15/20 ECG 12 lead Narrative Vent Rate: 55 bpm RR Interval: 1073 msec HI Interval: 148 msec QRS Duration: 127 msec QT Interval: 457 msec QTC Interval: 447 msec P-R-T Granville: 58 - -34 - -36 degrees SINUS BRADYCARDIA WITH OCCASIONAL VENTRICULAR PREMATURE COMPLEXES MARKED LEFT AXIS DEVIATION [QRS AXIS < -30] MODERATE INTRAVENTRICULAR CONDUCTION DELAY [110+ ms QRS DURATION] T WAVE ABN CONSIDER INFERIOR ISCHEMIA ABNORMAL ECG Electronically Signed By: Robi Garcia MD, [facility] Results for orders placed or performed during the hospital encounter of 09/11/19 ECG 12 lead Result Value Ref Range Ventricular Rate EKG/Min 84 BPM Atrial Rate 84 BPM HI-Interval (MSEC) 100 ms QRS-Interval (MSEC) 120 ms QT-Interval (MSEC) 396 ms QTc 467 ms P Granville 67 degrees R Granville -30 degrees T Granville 3 degrees Diagnosis Sinus rhythm with short HI Possible Left atrial enlargement Left axis deviation Incomplete left bundle branch block Abnormal ECG No previous ECGs available Confirmed by MONICA VIERA M.D ([id number]) on 09/12/2019 2:18:13 PM ASSESSMENT/PLAN: 1. Inferior wall ST-elevation PR-patient had stenting of the right coronary artery AV groove as well as the posterior descending artery has been maintained on aspirin and Brilinta denies any of her chest pain nausea vomiting or shortness of breath. Her temporary pacemaker wire will be removed todaysince she has not required 2. Hypertension-was on Cozaar home and resume afterload reduction Cozaar will need to have her on low-dose of beta-massimo as well as tolerated will need to watch her heart rate and the would be ableto handle beta-massimo 3. Hypercholesterolemia-should be on statin and be on Lipitor 40 or Crestor 20 4. Smoking cessation-was reviewed with the patient 5. Chronic back pain-she with planning on getting injections into her back. I reviewed with her prior to the procedure that if I elected to use drug-eluting stents would need to be on aspirin and Plavix for 12 months. Due to the extent of her coronary disease involving the RCA and the 2 stents thatwere placed were both drug-eluting recommend that she be treated for her back pain with oral medications. Arturo Nunez MD, [facility] [employer] [phone] [facility] 04/16/2020 9:52 AM * Kyung Ac RN - 04/16/2020 9:34 AM CDT NEIL RN weekly evaluation Impression: High risk for PRU due to rabia <18 Plan: Keep pt clean and dry. Turn Q2H and keep heels elevated off the bed. Encourage nourishment as able to. Pt on waffle mattress and pt can move all extremities. Will follow up weekly with pt while in the unit. Goal: No PRU this admission. Pressure relief precautions in place at all times. Kyung Ac RN documented in this encounter H&P Notes * Arturo Nunez MD - 04/15/2020 3:00 AM CDT Cardiology H&P - [facility] - Arturo Nunez MD [facility] Name: Ni Omega Neri Patient's Primary Care Physician: TIFF Flores Referring Physician: No ref. provider found Age: 79 y.o. Race: White Sex: female Chief Complaint/History of Present Illness Patient was admitted to [facility] on 04/15/2020 with No chief complaint on file. Patient is 79-year-old female the here to the hospital with a transfer from [facility] where she was diagnosed with an inferior wall ST- elevation PR. Patient has a history of smokinghas and history of prior lung nodule for which she has been followed for prior PCP. She recently has been discharged from [facility] with a pneumonia. In review of the records that are noted in epic patient has a history of COPD denies a history of diabetes or prior myocardial infarction andhas a history of hypertension. He had recently been admitted to the hospital in [place] back in May of 2019 with sepsis. Discussion the patient she describes the chest pain occurred suddenly roughlyabout the 8/10 severity associated with shortness of breath. She was treated with aspirin and heparin and nitro at the [facility] and then transferred by ground to the [facility] captain room service. Arrival Vitals Temp Pulse Resp BP SpO2 Temp src Heart Rate Source Patient Position BP Location FiO2 (%) Past Medical History: Diagnosis Date ??? COPD (chronic obstructive pulmonary disease) (CMS/HCC) ??? Head and neck cancer (CMS/HCC) ??? HTN (hypertension) ??? Lung nodule Past Surgical History: Procedure Laterality Date ??? CHOLECYSTECTOMY ??? TOTAL KNEE ARTHROPLASTY Bilateral No family history on file. Social History Socioeconomic History ??? Marital status: Legally Spouse name: Not on file ??? Number of children: Not on file ??? Years of education: Not on file ??? Highest education level: Not on file Occupational History ??? Not on file Social Needs ??? Financial resource strain: Not on file ??? Food insecurity Worry: Not on file Inability: Not on file ??? Transportation needs Medical: Not on file Non-medical: Not on file Tobacco Use ??? Smoking status: Not on file Substance and Sexual Activity ??? Alcohol use: Not on file ??? Drug use: Not on file ??? Sexual activity: Not on file Lifestyle ??? Physical activity Days per week: Not on file Minutes per session: Not on file ??? Stress: Not on file Relationships ??? Social connections Talks on phone: Not on file Gets together: Not on file Attends zoroastrianism service: Not on file Active member of club or organization: Not on file Attends meetings of clubs or organizations: Not on file Relationship status: Not on file ??? Intimate partner violence Fear of current or ex partner: Not on file Emotionally abused: Not on file Physically abused: Not on file Forced sexual activity: Not on file Other Topics Concern ??? Not on file Social History Narrative ??? Not on file Medications Prior to Admission Medication Sig Dispense Refill Last Dose ??? albuterol HFA (PROAIR HFA) 90 mcg/actuation inhaler Take 2 puffs by mouth 4 (four) times a day Past Month at Unknown time ??? fluticasone propionate (FLONASE) 50 mcg/actuation nasal spray Administer 1 spray into each nostril daily 1 Inhaler 0 ??? losartan (COZAAR) 50 mg tablet Take 1 tablet (50 mg total) by mouth daily 30 tablet 0 ??? sodium chloride (OCEAN) 0.65 % nasal spray Administer 1 spray into each nostril every 2 (two) hours as needed for congestion or rhinitis (irritation) 15 mL 0 Allergies Allergen Reactions ??? Codeine Itching ??? Hydromorphone Stomach upset ??? Morphine Stomach upset ??? Sulfa (Sulfonamide Antibiotics) Stomach upset MEDICATIONS FOR CURRENT ENCOUNTER: SCHEDULED MEDICATIONS: No current Epic-ordered facility-administered medications on file. ?? CONTINUOUS MEDICATIONS: No current Epic-ordered facility-administered medications on file. ?? PRN MEDICATIONS: No current Epic-ordered facility-administered medications on file. ?? Review of Systems 11 point system review was obtained all pertinent positives and negatives have been listed in the HPI. Exam There were no vitals filed for this visit. General: She is in mild distress having check active chest pain Neuro: Alert and oriented x3, moves all extremities well HEENT: NCAT, EOMI Neck: No JVD, no bruits Chest: Diminished breath sounds bilaterally. No rales, rhonchi, or wheezes noted Cardiac: Regular S1, S2, Normal rate. No murmurs, rubs, or gallops noted. Extremities: No LE edema. Neuro: No focal deficits Psych: appropriate mood and normal affect Results for orders placed during the hospital encounter of 09/11/19 ECG 12 lead Results for orders placed or performed during the hospital encounter of 09/11/19 ECG 12 lead Result Value Ref Range Ventricular Rate EKG/Min 84 BPM Atrial Rate 84 BPM HI-Interval (MSEC) 100 ms QRS-Interval (MSEC) 120 ms QT-Interval (MSEC) 396 ms QTc 467 ms P Granville 67 degrees R Granville -30 degrees T Granville 3 degrees Diagnosis Sinus rhythm with short HI Possible Left atrial enlargement Left axis deviation Incomplete left bundle branch block Abnormal ECG No previous ECGs available Confirmed by MONICA VIERA M.D ([id number]) on 09/12/2019 2:18:13 PM Assessment and Plan Pt is a 79 y.o. female who presents to the hospital with No chief complaint on file. At present my recommendations are as follows: Active Problems: No Active Problems: There are no active problems currently on the Problem List. Please update the Problem List and refresh. 1. Inferior wall ST-elevation PR-patient will undergo cardiac catheterization she apparently seems to get injections in her back neck per Spine for pain control she was tentatively planning on havingit done earlier this year however due to the COVID -19 infection she is now having to defer that and was planning on having injection done next week. I have reviewed with her the benefits of drug-eluting stents versus bare metal stents. It may be in the situation that she would benefit from a bare metal stent as she apparently does require injections into her back. However she is also able to theget pain control with oral medications such as Percocet which case drug-eluting stent may be an option for her. Risks benefits and alternatives of the procedure including option for medical management were discussed with the patient and the present family members. Risks discussed include but are not limited to stroke heart attack, , emergency bypass surgery, vascular injury, pain at site of sheath insertion, vascular surgery, embolic event with loss of limb and loss of digits, dye allergy,dye reaction, dialysis, at a rate of 11/999 for the angiographic portion of the procedure and 1/100for the interventional part of the procedure. All questions were answered to their satisfaction. 2. Hypertension-blood pressure management with home medications as needed 3. COPD-continue with med medical management recommended smoking cessation. Thank you for allowing us to participate in the care of this patient. We will continue to follow. If you have any questions, please don't hesitate to call. Arturo Nunez MD, [facility] [employer] [facility] ([facility]) [phone] 04/15/2020 3:00 AM CC: [facility] [phone] documented in this encounter Procedure Notes * Micaela Burns MD - 04/15/2020 10:15 PM CDTAssociated Order(s): Critical Care Post-Procedure Diagnose(s): ST elevation myocardial infarction involving right coronary artery (HCC) Critical Care Performed by: Micaela Burns MD Authorized by: Micaela Burns MD CRITICAL CARE: Team: [facility] Shift: PM Level of Billing: Critical Care My time spent with this patient was 35 minutes: Critical Provider Statement: I have seen and examined the patient on this day of service. I have reviewed and confirmed the history, physical exam, laboratory and radiologic data as documented in thesigned ICU note. I have reviewed and discussed my treatment plan with the ICU team and other medical/travel sales consultant staff, making frequent assessments and decisions regarding this patient's complex medical care. Critical Care time was exclusive of time spent performing separately billed procedures, treating other patients, and teaching. This time was in addition to and separate from critical care provided by other practitioners in my group on this day of service. Critical Care was necessary to treat or prevent imminent or life-threatening deterioration of the following conditions: Acute pain/acute postoperative pain ST-Elevation myocardial infarction (STEMI) and Tachy/jessica arrhythmic event This time was spent by me doing the following: Acute pain control Initiation/active titration of inotropic medications Active and frequent monitoring of intake/output and volumen status Initiation/management of anti-platelet agents * Enrique, Arturo Lima MD - 04/15/2020 4:34 AM CDTProcedure(s): CARDIAC CATHETERIZATION Pre-Procedure Diagnose(s): Acute PR, inferior wall (CMS/HCC) (HCC) Post-Procedure Diagnose(s): Acute PR, inferior wall (CMS/HCC) (HCC) CARDIAC CATHETERIZATION ARTURO NUNEZ MD, [facility] ([facility]) Ni Neri ENCOUNTER: [id number] Date of Procedure: 04/15/2020 BIRTHDATE: 1940 SAFETY PROFESSIONAL: Arturo Nunez MD REFERRING PHYSICIAN: [facility] CARDIOVASCULAR PROCEDURE: 1. Selective coronary angiography with left ventriculography 2. AIF above and below the renals 3. Temporary pacemaker wire 4. Pronto catheter thrombectomy 5. PTCA stenting of high-grade 100% occlusion JARETT 0 flow PDA reduced to 0% residual with implantation with 3 mm x 18 mm Xience drug-eluting stent 6. PTCA stenting of high-grade 100% occluded proximal RCA JARETT 0 flow reduced to 0% residual with implantation with 3.5 mm x 38 mm Xience drug-eluting stent 7. Intracoronary Integrilin 8. Sheaths sutured for manual compression PREPROCEDURE DIAGNOSES: 1. Patient presents from [facility] where she had demonstrated a ST-elevation inferior wall myocardial infarction. Patient started experiencing substernal chest discomfort earlier this evening and had presented the ER. He has a history of smoking COPD and prior lung mass. She was recently discharged from [facility] with a presentation for pneumonia. The patient is reportedly COVID -19 negative SPECIMENS REMOVED: None COMPLICATIONS: None ESTIMATED BLOOD LOSS: 50 mL The patient underwent direct physician monitored conscious sedation from the period lasting 77 minutes of conscious sedation time utilizing 2 mg of Versed IV. Conscious sedation was administered and monitored by train personnel during the maryan procedural setting of coronary angiogram and intervention PROCEDURAL NARRATIVE: After informed consent was obtained where risks benefits and alternatives of the procedure including option for medical management were discussed with the patient and the present family members. Risks discussed include but are not limited to stroke heart attack, , emergency bypass surgery, vascular injury, pain at site of sheath insertion, vascular surgery, embolic event with loss of limb and loss of digits, dye allergy, dye reaction, dialysis, at a rate of 11/999 for the angiographic portion of the procedure and 1/100 for the interventional part of the procedure. All questions were answered to their satisfaction and then the Patient underwent standard sterile prep and drape. The rightcommon femoral area was injected with lidocaine and access was obtained utilizing a micropuncture kit and access was obtained with a 6 Djiboutian sheath was inserted using modified seldinger technique. 5F Jl4 Jr4 and pigtail catheters were used for angiographic imaging which was performed in various angles to delineate vascular anatomy. Seven Djiboutian sheath was inserted as this was an inferior wall ST-elevation PR and the 100% occlusion of the RCA proximally was noted temporary pacemaker wire was advanced through the 7 Djiboutian venous sheath that had been placed after gaining access with a micropuncture kit. Findings include: LMT- Large caliber vessel which is widely patent and grossly normal LAD- Large caliber vessel which is widely patent and grossly normal. The first diagonal was Large there is a 20% napkin ring type lesion at the origin of the 1st diagonal vessel. The second diagonal was Small. There is a segment of myocardial bridging that is noted in the mid segment of the Left Anterior Descending Artery. Otherwise the remainder the Left Anterior Descending Artery appears to be widely patent in its course down to the apex LCX- Non-dominant Large caliber AV groove vessel which is widely patent there is a 10% lesion that is noted at the bifurcation of the OM2 and the distal AV groove circumflex. There is Om1 is Small which is widely patent. Om2 is Large which is widely patent. RCA- Dominant Large caliber AV groove vessel which is 100% occluded in the proximal segment there is JARETT 0 flow this is the culprit vessel. After the revascularization was performed it was noted that the PDA is Medium which is patent however the distal vasculature appears to be moderately diseasedand the PLB is Small which is patent. Left ventriculogram- was performed in the MALDONADO view the LVEF was estimated at 50% with normal LV chamber size and inferior basal hypokinetic wall motion. LV pressure-145/11/29 mmHG and AO pressure-157/87/120 mmHg Abdominal aortogram above and below the renals-I had difficulty advancing the guidewire this was performed at the end of the case evaluate the abdominal aorta. Aortogram was performed above and belowthe renals demonstrating normal caliber descending abdominal aorta the proximal aspect of the renalarteries are noted be widely patent. The catheter was retracted to the infrarenal location demonstrating that there is a right common iliac 70% stenosis noted. Additionally there was a retrograde dissection in the right external iliac artery which was non flow-limiting and antegrade flow was preserved SUMMARY 1. 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 Preserved LV systolic function with inferior wall motion abnormality 3. Elevated LVEDP and SBP 4. 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 A 6 khmer JR4 guidingcatheter was engaged into the ostium of the RCA. Angiomax was used for anticoagulation during the procedure. Temporary pacemaker wire was already inserted thresholds were checked and pacemaker was set at 50 beats per minute at 5 mA The lesion was wired with a 190cm crime specialist wire. I ran a Pronto catheter down hoping that that would give us the jainism of JARETT 3 flow the Pronto catheter was advanced however there was improvement of flow in the proximal AV groove however theposterior descending artery was noted still be occluded. Angioplasty was then performed using a 2.5 x15 balloon in the proximal RCA. This improved flow distally there was clot burden that was noted in the mid AV groove. There is 100% occlusion of the posterior descending artery. I was able to wire the posterior descending artery and then performed angioplasty in the distal segment of the AV groove into the PDA utilizing the 2.5 x 15 balloon. Intra arterial Integrilin was injected into the right coronary artery. Decision was made to proceed with stenting of the posterior descending artery which was performed using a 3 x 18 Xience ADAM. Decision was made to proceed with stenting of the proximal to mid RCA AV groove utilizing a 3.5 x 38 mm Xience ADAM. Guide wire was removed and final angiograms were performed demonstrating excellent runoff. There was no angiographic evidence of dissection, thrombosis, or perforation. The 100 % lesions were reduced to a 0 % residual with JARETT 3 runoff. This was deemed an acceptable result. Patient experienced hypotension during the procedure most likely related to RV involvement IV fluids and dopamine were initiated and she responded very well by maintaining a blood pressure over 120 with that. Hemostasis: 1. Sheaths were sutured into place. Would need to do arterial line pressure monitoring while requiring dopamine 2. Maintain temporary pacemaker wire vertex several hours to ensure that patient is not requiring temporary pacing CONCLUSIONS 1. Successful revascularization of the posterior descending artery and proximal to mid segment of the AV groove utilizing 2 Xience drug-eluting stents PLAN 1. Maintain right common femoral arterial sheath for transducing arterial blood pressure while requiring dopamine 2. Remove temporary pacemaker wire in few hours if there is no pacing required this was reviewed with the auto hiker on report 3. Aspirin and Brilinta load 4. Dual anti-platelet therapy for the next 12 months the setting of drug-eluting stents in the RCA vessel. 5. Wean dopamine follow blood pressure with arterial sheath transducer 6. Absolute smoking cessation was recommended 7. Revascularization of the right common iliac as an outpatient 8. Follow-up with [facility] 2-4 weeks Arturo Nunez MD, [facility] Glove Printer [phone] [facility] ([facility]) documented in this encounter Consult Notes * Micaela Burns MD - 04/15/2020 5:50 AM CDT Critical Care Consult Reason for Consult: Hemodynamic and arrhythmia after RCA stenting Requesting Provider: Dr. Lima Consults Subjective Patient is a 79 y.o. female with chief complaint of chest pain, shortness of breath, s/p CAD stenting. HPI Patient developed severe chest pain, difficulty breathing and went to outside hospital where she was found to be having an acute STEMI. She was transferred for cardiac catheterization. In the catheterization laboratory technician she was treated with two stents to pRCA and PDA. She presents to the ICU complaining of back pain and nausea. She did get morphine at the outside hospital and has an allergy to it which includesnausea. She received integrillin bolus and Brilinta as well as being on a dopamine gtt at 5. COVID negative Past Medical History: Diagnosis Date ??? COPD (chronic obstructive pulmonary disease) (CMS/HCC) ??? Head and neck cancer (CMS/HCC) ??? HTN (hypertension) ??? Lung nodule Past Surgical History: Procedure Laterality Date ??? CHOLECYSTECTOMY ??? TOTAL KNEE ARTHROPLASTY Bilateral Medications Prior to Admission Medication Sig Dispense Refill Last Dose ??? albuterol HFA (PROAIR HFA) 90 mcg/actuation inhaler Take 2 puffs by mouth 4 (four) times a day Past Month at Unknown time ??? fluticasone propionate (FLONASE) 50 mcg/actuation nasal spray Administer 1 spray into each nostril daily 1 Inhaler 0 ??? losartan (COZAAR) 50 mg tablet Take 1 tablet (50 mg total) by mouth daily 30 tablet 0 ??? sodium chloride (OCEAN) 0.65 % nasal spray Administer 1 spray into each nostril every 2 (two) hours as needed for congestion or rhinitis (irritation) 15 mL 0 Allergies Allergen Reactions ??? Codeine Itching ??? Hydromorphone Stomach upset ??? Morphine Stomach upset ??? Sulfa (Sulfonamide Antibiotics) Stomach upset SH - History of tobacco use, No family history on file. Review of Systems: See HPI, positive for back and chest pain, shortness of breath, nausea, inability to void. Objective Vitals: 24hr Min/Max HR 65, SBP 105 Physicial Exam: Alert and oriented Appears stated age Sclera anicteric RRR not paced Equal chest rise Abd soft, non-tender Right groin sheath intact and hemostatic Bilateral lower extremities warm, no edema Normal genitalia with urine through mckeon Lab/Radiology/Diagnostic Review: Laboratory review: Lab results in the last 12 hours: Recent Results (from the past 12 hour(s)) POCT glucose Collection Time: 04/15/20 5:14 AM Result Value Ref Range Glucose, POC 124 70 - 199 mg/dL Assessment/Plan 79 woman s/p RCA stenting for STEMI with concern for right heart infarct and risk for arrhythmia. Neuro - Control back pain with tylenol, if persists may need CT to eval for source though patient has a history of back pain. Resp - COPD well controlled, continue CV - Loaded with anti-platelets, heart rate tachycardic on dopamine gtt which is currently held, pacer in place as needed plan to remove if stable, repeat EKG, follow up cardiology recs. History of HTN, hold Losartan GI - Nausea likely related to morphine dosing, zofran given, will monitor - Urinary retention treated with mckeon, gentle IVF at 75 but likely will need diuresis soon, check lytes and keep k and mag up to avoid arrhythmia Heme - Antiplatelets as above, check HCT ID - No issues Endo - Keep euglycemic, does not have a history of DM Dispo - Full code, continue ICU care. documented in this encounter ED Notes * Phyllis Mccurdy RN - 04/15/2020 2:48 AM CDT Bed: [facility] Expected date: Expected time: Means of arrival: Comments: [id number] 79 y/o F [place] STEMI 112/76 70 NSR RR 22 324 ASA Nitro infusing Phyllis Mccurdy RN 04/15/20 0248 documented in this encounter Miscellaneous Notes * Plan of Care - Priti Hernandez RN - 04/17/2020 12:48 PM CDT Goals: Clinical Goals for the Shift: Stable vitals Summary: discharge instructions and perscriptions given to pt awaiting daughter to leaf size picker denies chest pain or new discomfort * Plan of Care - Eli Childers RN - 04/17/2020 5:57 AM CDT Goals: Clinical Goals for the Shift: STABLE VITALS, LABS,PAIN MANAGED AND CONTROLLED, REST,FREE OF FALLS Summary: Patient slept well, denies pain/SOB, no complaints of discomfort. Hemodynamically stable,Blood sugars WDL. Patient is pending discharge orders, labs drawn this morning. Eli Childers RN Problem: Activity: Goal: Mobility will improve Outcome: Progressing Problem: Lack of Knowledge: Goal: Understanding of ways to prevent future skin breakdown will improve Outcome: Progressing Goal: Ability to identify appropriate dietary choices will improve Outcome: Progressing Problem: Nutritional: Goal: Dietary intake will improve Outcome: Progressing Goal: Ability to maintain a balanced intake and output will improve Outcome: Progressing Problem: Skin Integrity: Goal: Risk for impaired skin integrity will decrease Outcome: Progressing Goal: Ability to demonstrate warm and dry skin will improve Outcome: Progressing Goal: Circulation will improve to fullest extent possible Outcome: Progressing Problem: Lack of Knowledge: Goal: Ability to state ways to decrease the risk of falls will improve Outcome: Progressing Problem: Safety: Goal: Will remain free from falls Outcome: Progressing Goal: Will remain free from injury from falls Outcome: Progressing Goal: Will remain free from falls and injury in home environment Outcome: Progressing Problem: Activity: Goal: Activity Intolerance will improve Outcome: Progressing Problem: Cardiac: Goal: Ability to achieve and maintain adequate cardiopulmonary perfusion will improve Outcome: Progressing Goal: Hemodynamic stability will improve Outcome: Progressing Goal: Will show no evidence of cardiac arrhythmias Outcome: Progressing Problem: Lack of Knowledge: Goal: Verbalization of understanding the information provided will improve Outcome: Progressing Problem: Coping: Goal: Ability to adjust to condition or change in health will improve Outcome: Progressing Goal: Ability to state activities that reduce stress will improve Outcome: Progressing Goal: Level of anxiety will decrease Outcome: Progressing Problem: Fluid Volume: Goal: Risk for excess fluid volume will decrease Outcome: Progressing Problem: Health Behavior: Goal: Identification of resources available to assist in meeting health care needs will improve Outcome: Progressing Goal: Compliance with treatment plan for underlying cause of condition will improve Outcome: Progressing Problem: Physical Regulation: Goal: Complications related to the disease process, condition or treatment will be avoided or minimized Outcome: Progressing Goal: Diagnostic test results will improve Outcome: Progressing Problem: Sensory: Goal: General experience of comfort will improve Outcome: Progressing Goal: Satisfaction with pain management regimen will improve Outcome: Progressing Problem: Health Behavior: Goal: Understanding of discharge needs will improve Outcome: Progressing * Nacho of [place] - Felicita Be RN - 04/16/2020 5:47 PM CDT CM called and spoke with patient's daughter, Khadijah Bonilla, , patient lives alone, and is independent, hard headed , per daughter, states went out and cut her own grass, mops her floors andcleans out her own cabinets, patient still drives, uses no device to ambulate, sees a TIE TAMPER, Roxana Graham, and she gets her medications from [facility] on [address] In [place], [place], Goal is to return home on discharge, has good family support, talked to daughter about life alert, and said she would talk to patient about this, CM to continue to follow for discharge plan. * Plan of Care - Khai Murphy RN - 04/16/2020 1:52 PM CDT Goals: Clinical Goals for the Shift: VSS, comfort, safety Summary: Removed venous sheath today. Patient doing well. C/O no chest pain or SOB. Waiting for telemetry bed. Patient has no IV access, is extremely hard stick and is not very tolerant of being stuck, and okd with Germania Cabrera TIE TAMPER to send to floor with no IV access and to leave IV out. * Plan of Care - Rachell Bolden - 04/16/2020 5:20 AM CDT Goals: Clinical Goals for the Shift: VSS, comfort, safety Summary: Kathleen VELASCO * Plan of Care - Ligia Carlin RN - 04/15/2020 5:47 PM CDT Goals: Clinical Goals for the Shift: maintain stable vital signs and heart rhythm, decrease nausea Summary: Patient maintains stable vital signs this shift. Several runs of ectopy this shift but improved after administration of magnesium. Nausea decreased after administration of Reglan. Patient now tolerating a diet. Arterial sheath successfully removed per order this shift with no complications. Patient denies chest pain or other discomfort. documented in this encounter Plan of Treatment Not on file documented as of this encounter Procedures Procedure Name Priority Date/Time Associated Diagnosis Comments EGFR STAT 04/17/2020 5:55 AM CDT DIFFERENTIAL AUTO Routine 04/17/2020 5:5 5 AM CDT CALCIUM, IONIZED STAT 04/17/2020 5:55 AM CDT CBC WITH AUTO DIFFERENTIAL Routine 04/17/2020 5:55 AM CDT BASIC METABOLIC PANEL STAT 04/17/2020 5:55 AM CDT POCT GLUCOSE DEVICE Routine 04/17/2020 4 :57 AM CDT POCT GLUCOSE DEVICE Routine 04/16/2020 7 :59 PM CDT POCT GLUCOSE DEVICE Routine 04/16/2020 8 :20 AM CDT EGFR STAT 04/16/2020 8:14 AM CDT CBC WITHOUT DIFFERENTIAL STAT 020 8:14 AM CDT MAGNESIUM STAT 04/16/2020 8:14 AM CDT BASIC METABOLIC PANEL STAT 04/16/2020 8:14 AM CDT CRITICAL CARE Routine 04/15/2020 10:[address] elevation myocardial infarction involving right coronary artery (CMS/HCC) POCT GLUCOSE DEVICE Routine 04/15/2020 8 :37 PM CDT POCT GLUCOSE DEVICE Routine 04/15/2020 5 :12 PM CDT APTT STAT 04/15/2020 2:53 PM CDT POCT GLUCOSE DEVICE Routine 04/15/2020 1 2:45 PM CDT TROPONIN T, 6 HOUR 5TH GEN Timed 04/15/2020 12:42 PM CDT TROPONIN T, 3 HOUR 5TH GEN Timed 04/15/2020 9:38 AM CDT LIPID PANEL Timed 04/15/2020 9:38 AM CDT XR CHEST 1 VIEW IP Routine 04/15/2020 9:23 AM CDT ECG 12-LEAD Routine 04/15/2020 9:07 AM CDT POCT GLUCOSE DEVICE Routine 04/15/2020 7 :30 AM CDT TROPONIN T 5TH GEN SERIES (BASELINE, 3HR, 6HR) Add-On 04/15/2020 6:43 AM CDT EGFR STAT 04/15/2020 6:43 AM CDT CBC WITHOUT DIFFERENTIAL STAT 020 6:43 AM CDT PHOSPHORUS STAT 04/15/2020 6:43 AM CDT MAGNESIUM STAT 04/15/2020 6:43 AM CDT COMPREHENSIVE METABOLIC PANEL STAT 04/15/2020 6:43 AM CDT POCT GLUCOSE DEVICE Routine 04/15/2020 5 :14 AM CDT LEFT HEART CATHETERIZATION WITH CORONARY ANGIOGRAPHY AND WITH AND WITHOUT LEFT VENTRICULOGRAM Routine 04/15/2020 5:01 AM CDT PCI AMI REVASCULARIZATION SINGLE VESSEL (W ADAM) [id number] Routine 04/15/2020 5:01 AM CDT TEMPOARY PACING INSERT/REPLACE LEAD Routine 04/15/2020 5:01 AM CDT documented in this encounter Results * eGFR (04/17/2020 5:55 AM CDT) eGFR 90 mL/min/1.7 3 m2 BILLY GABRIEL Comment: Interpretive Data Reference Interval Normal ?>/= 90 mL/min/1.73m2 Mildly decreased* ? 60 - 89 mL/min/1.73m2 Mildly to moderately decreased ?45 - 59 mL/min/1.73m2 Moderately to severely decreased ??30 - 44 mL/min/1.73m2 Severely decreased ?15 - 29 mL/min/1.73m2 Kidney Failure ?< 15 ??mL/min/1.73m2 *Relative to young adult level If -Syrian multiply value by 1.16. Estimated glomerular filtration rate is determined by the CKD-EPI equation recommended by the National Kidney Foundation (KDIGO 2012 Clinical Practice Guideline for the Evaluation and Management of Chronic Kidney Disease. Kidney Intnl Suppl Nov 2012;3:1). The CKD-EPI equation should not be used for patients with unstable renal function and has not been validated in children and those over 70. Current interpretive data was last reviewed 2016. Blood specimen (specimen) 04/17/2020 5:55 AM CDT 04/17/2020 6:02 AM CDT us Denisha Joe TIE TAMPER LAB BLOOD ORDERABLES Final Resu lt BILLY GABRIEL [id number] Department [place] [address] * (ABNORMAL) Differential, auto (04/17/2020 5:55 AM CDT) Neutrophil abs 9.5(H) 1.7 - 6.5 K/cumm [facility] Imm gran abs 0.1 0.0 - 0.1 K/cumm [facility] Lymphocyte abs 4.6(H) 0.8 - 3.3 K/cumm [facility] Monocyte abs 1.7(H) 0.2 - 0.8 K/cumm [facility] Eosinophil abs 0.3 0.0 - 0.5 K/cumm [facility] Basophil abs 0.1 0.0 - 0.1 K/cumm [facility] Neutrophil pct 58.5 % [facility] Comment: Interpretive Data Percent cell count reference ranges are not reported, since discordance with absolute values may lead to misinterpretation of CBC data. Current Interpretive Data was last revised on 2018. Imm gran pct 0.9 % [facility] Comment: Interpretive Data Percent cell count reference ranges are not reported, since discordance with absolute values may lead to misinterpretation of CBC data. Current Interpretive Data was last revised on 2018. Lymphocyte pct 28.1 % [facility] Comment: Interpretive Data Percent cell count reference ranges are not reported, since discordance with absolute values may lead to misinterpretation of CBC data. Current Interpretive Data was last revised on 2018. Monocyte pct 10.2 % [facility] Comment: Interpretive Data Percent cell count reference ranges are not reported, since discordance with absolute values may lead to misinterpretation of CBC data. Current Interpretive Data was last revised on 2018. Eosinophil pct 1.9 % [facility] Comment: Interpretive Data Percent cell count reference ranges are not reported, since discordance with absolute values may lead to misinterpretation of CBC data. Current Interpretive Data was last revised on 2018. Basophil pct 0.4 % [facility] Comment: Interpretive Data Percent cell count reference ranges are not reported, since discordance with absolute values may lead to misinterpretation of CBC data. Current Interpretive Data was last revised on 2018. Blood specimen (specimen) 04/17/2020 5:55 AM CDT 04/17/2020 6:13 AM CDT Denisha Joe TIE TAMPER LAB BLOOD ORDERABLES Final Resu lt Performing Organization Address [facility] Co de Phone Number BILLY GABRIEL [phone] Department [place] [address] * (ABNORMAL) Calcium, ionized (04/17/2020 5:55 AM CDT) Ca, ionized, bld 4.41(L) 4.60 - 5.20 mg/dL [facility] Ca, ionized, bld, calc 4.56(L) 4.60 - 5.20 mg/dL [facility] Blood specimen (specimen) 04/17/2020 5:55 AM CDT 04/17/2020 6:02 AM CDT Denisha Joe LAB BLOOD ORDERABLES Final Resu Performing Organization Address [facility] de Phone Number BILLY GABRIEL [phone] Department [place] [address] * (ABNORMAL) Basic metabolic panel (04/17/2020 5:55 AM CDT) Sodium 141 135 - 145 mmol/L [facility] Potassium, pl 4.3 3.3 - 4.9 mmol/L [facility] Chloride 109 97 - 110 mmol/L [facility] CO2 21(L) 22 - 32 mmol/L [facility] Anion gap 11 2 - 15 mmol/L [facility] BUN 13 8 - 25 mg/dL [facility] Creatinine 0.54(L) 0.60 - 1.10 mg/dL [facility] Glucose 111 70 - 199 mg/dL [facility] Comment: Interpretive Data Fasting glucose >/= 126 mg/dl is diagnostic for diabetes. ?? Fasting is defined as no caloric intake for at least 8 hours. Fasting glucose between 100 mg/dl to 125 mg/dl is diagnostic of prediabetes. In a patient with classic symptoms of hyperglycemia or hyperglycemic crisis, a random glucose >/= 200 mg/dl is diagnostic for diabetes. In the absence of unequivocal hyperglycemia, results should be confirmed by repeat testing. The classification and Diagnosis of Diabetes Diabetes Care 2017;40 (Suppl. 1):S11. Current interpretive data was last revised 2017. Calcium 8.7 8.5 - 10.3 mg/dL [facility] Blood specimen (specimen) 04/17/2020 5:55 AM CDT 04/17/2020 6:02 AM CDT Denisha Joe TIE TAMPER LAB BLOOD ORDERABLES Final Resu lt BILLY GABRIEL [id number] Department [place] [address] * (ABNORMAL) CBC with auto differential (04/17/2020 5:55 AM CDT) WBC 16.2(H) 3.8 - 9.9 K/cumm [facility] Hgb 11.4(L) 11.9 - 15.5 g/dL [facility] Hct 36.0 35.6 - 45.5 % [facility] Plt 267 150 - 400 K/cumm [facility] MPV 10.7 9.1 - 12.3 fL [facility] RBC 4.01 3.90 - 5.20 M/cumm [facility] MCV 89.8 81.3 - 96.4 fL [facility] MCH 28.4 27.1 - 33.3 pg [facility] MCHC 31.7(L) 32.3 - 35.7 g/dL [facility] RDW CV 14.0 11.1 - 14.9 % [facility] RDW SD 45.2 35.7 - 48.1 fL [facility] NRBC abs 0.00 0.00 - 0.01 K/cumm [facility] Blood specimen (specimen) 04/17/2020 5:55 AM CDT 04/17/2020 6:13 AM CDT Denisha Joe TIE TAMPER LAB BLOOD ORDERABLES Final Resu lt Performing Organization Address City/[facility]/ZIP Co de Phone Number BILLY GABRIEL [phone] [address] Department [employer] [place], [place] [id number] * POCT glucose (04/17/2020 4:57 AM CDT) Glucose, POC 98 70 - 199 mg/dL [facility] Blood specimen (specimen) 04/17/2020 4:57 AM CDT 04/17/2020 4:57 AM CDT Arturo Nunez MD LAB POCT ORDERABLES - DEVICE Final Result Performing Organization Address [facility] de Phone Number [facility] [address] [facility] [place] [address] * POCT glucose (04/16/2020 7:59 PM CDT) Glucose, POC 128 70 - 199 mg/dL [facility] Blood specimen (specimen) 04/16/2020 7:59 PM CDT 04/16/2020 7:59 PM CDT Arturo Nunez MD LAB POCT ORDERABLES - DEVICE Final Result Performing Organization Address [facility] de Phone Number [facility] [address] [address] [facility] [place] [address] * POCT glucose (04/16/2020 8:20 AM CDT) Glucose, POC 110 70 - 199 mg/dL [facility] Blood specimen (specimen) 04/16/2020 8:20 AM CDT 04/16/2020 8:20 AM CDT Arturo Nunez MD LAB POCT ORDERABLES - DEVICE Final Result Performing Organization Address [facility] de Phone Number [facility] [address] [address] [facility] [place] [address] * eGFR (04/16/2020 8:14 AM CDT) eGFR 84 mL/min/1.7 3 m2 [facility] Comment: Interpretive Data Reference Interval Normal ?>/= 90 mL/min/1.73m2 Mildly decreased* ? 60 - 89 mL/min/1.73m2 Mildly to moderately decreased ?45 - 59 mL/min/1.73m2 Moderately to severely decreased ??30 - 44 mL/min/1.73m2 Severely decreased ?15 - 29 mL/min/1.73m2 Kidney Failure ?< 15 ??mL/min/1.73m2 *Relative to young adult level If -Syrian multiply value by 1.16. Estimated glomerular filtration rate is determined by the CKD-EPI equation recommended by the National Kidney Foundation (KDIGO 2012 Clinical Practice Guideline for the Evaluation and Management of Chronic Kidney Disease. Kidney Intnl Suppl Nov 2012;3:1). The CKD-EPI equation should not be used for patients with unstable renal function and has not been validated in children and those over 70. Current interpretive data was last reviewed 2016. Blood specimen (specimen) 04/16/2020 8:14 AM CDT 04/16/2020 8:25 AM CDT Alyssa Amos DO LAB BLOOD ORDERABLES F inal Result Performing Organization Address [facility] de Phone Number [facility] [address] [place] [address] * Magnesium (04/16/2020 8:14 AM CDT) Pathologist [facility] Magnesium 2.1 1.4 - 2.5 mg/dL [facility] Blood specimen (specimen) 04/16/2020 8:14 AM CDT 04/16/2020 8:25 AM CDT Alyssa Amos DO LAB BLOOD ORDERABLES F inal Result Performing Organization Address [facility] de Phone Number [facility] [address] [address] [place] [address] * (ABNORMAL) CBC without differential (04/16/2020 8:14 AM CDT) WBC 14.7(H) 3.8 - 9.9 K/cumm [facility] Hgb 11.5(L) 11.9 - 15.5 g/dL [facility] CH Hct 35.9 35.6 - 45.5 % [facility] Plt 273 150 - 400 K/cumm [facility] MPV 10.6 9.1 - 12.3 fL [facility] RBC 4.04 3.90 - 5.20 M/cumm [facility] CH MCV 88.9 81.3 - 96.4 fL [facility] MCH 28.5 27.1 - 33.3 pg [facility] MCHC 32.0(L) 32.3 - 35.7 g/dL [facility] RDW CV 14.4 11.1 - 14.9 % [facility] CH RDW SD 46.7 35.7 - 48.1 fL [facility] NRBC abs 0.00 0.00 - 0.01 K/cumm [facility] Blood specimen (specimen) 04/16/2020 8:14 AM CDT 04/16/2020 8:25 AM CDT us Alyssa Amos DO LAB BLOOD ORDERABLES F inal Result [facility] [address] Department [place] [address] * (ABNORMAL) Basic metabolic panel (04/16/2020 8:14 AM CDT) Pathologist [facility] Sodium 140 135 - 145 mmol/L [facility] Potassium, pl 3.7 3.3 - 4.9 mmol/L [facility] Chloride 107 97 - 110 mmol/L [facility] CO2 24 22 - 32 mmol/L [facility] Anion gap 9 2 - 15 mmol/L [facility] BUN 12 8 - 25 mg/dL [facility] Creatinine 0.68 0.60 - 1.10 mg/dL [facility] Glucose 112 70 - 199 mg/dL [facility] Comment: Interpretive Data Fasting glucose >/= 126 mg/dl is diagnostic for diabetes. ?? Fasting is defined as no caloric intake for at least 8 hours. Fasting glucose between 100 mg/dl to 125 mg/dl is diagnostic of prediabetes. In a patient with classic symptoms of hyperglycemia or hyperglycemic crisis, a random glucose >/= 200 mg/dl is diagnostic for diabetes. In the absence of unequivocal hyperglycemia, results should be confirmed by repeat testing. The classification and Diagnosis of Diabetes Diabetes Care 2017;40 (Suppl. 1):S11. Current interpretive data was last revised 2017. Calcium 8.3(L) 8.5 - 10.3 mg/dL [facility] Blood specimen (specimen) 04/16/2020 8:14 AM CDT 04/16/2020 8:25 AM CDT us Alyssa Amos DO LAB BLOOD ORDERABLES F inal Result [facility] [id number] [facility] Department [place] [address] * Critical Care (04/15/2020 10:15 PM CDT) Narrative Micaela Burns MD - 04/15/2020 10:15 PM CDT Micaela Burns MD ? 04/17/2020 12:42 AM Critical Care Performed by: Micaela Burns MD Authorized by: Micalea Burns MD CRITICAL CARE: ??Team: ??CHNE ??Shift: ??PM ??Level of Billing: ??Critical Care ??My time spent with this patient was 35 minutes: Critical Provider Statement: I have seen and examined the patient on this day of service. I have reviewed and confirmed the history, physical exam, laboratory and radiologic data as documented in the signed ICU note. I have reviewed and discussed my treatment plan with the ICU team and other medical/travel sales consultant staff, making frequent assessments and decisions regarding this patient's complex medical care. Critical Care time was exclusive of time spent performing separately billed procedures, treating other patients, and teaching. This time was in addition to and separate from critical care provided by other practitioners in my group on this day of service. Critical Care was necessary to treat or prevent imminent or life-threatening deterioration of the following conditions: ? Acute pain/acute postoperative pain ?? ST-Elevation myocardial infarction (STEMI) and Tachy/jessica arrhythmic event ??This time was spent by me doing the following: ? Acute pain control ?? Initiation/active titration of inotropic medications ?? Active and frequent monitoring of intake/output and volumen status ?? Initiation/management of anti-platelet agents Micaela Burns MD IN CLINIC/BEDSIDE ORDERABLE S Final Result * POCT glucose (04/15/2020 8:37 PM CDT) Glucose, POC 105 70 - 199 mg/dL [facility] Blood specimen (specimen) 04/15/2020 8:37 PM CDT 04/15/2020 8:37 PM CDT Result [facility] Arturo Nunez MD LAB POCT ORDERABLES - DEVICE Final Result Performing Organization Address City/[facility]/ZIP Co de Phone Number [facility] [address] [place] [address] * POCT glucose (04/15/2020 5:12 PM CDT) Glucose, POC 101 70 - 199 mg/dL [facility] Blood specimen (specimen) 04/15/2020 5:12 PM CDT 04/15/2020 5:12 PM CDT Result [facility] Arturo Nunez MD LAB POCT ORDERABLES - DEVICE Final Result Performing Organization Address [facility] Co de Phone Number [facility] [address] [address] [place] [address] * aPTT (04/15/2020 2:53 PM CDT) aPTT 26 25 - 37 sec [facility] Comment: Interpretive data Heparin therapeutic range: 48-99 seconds Range based on correlation with therapeutic heparin activity range of 0.3-0.7 units/ml. Current interpretive data was last revised on 2019. Blood specimen (specimen) 04/15/2020 2:53 PM CDT 04/15/2020 2:55 PM CDT Alyssa Amos DO LAB BLOOD ORDERABLES F inal Result Performing Organization Address [facility] de Phone Number [facility] [address] [address] [facility] [place] [address] * POCT glucose (04/15/2020 12:45 PM CDT) Glucose, POC 126 70 - 199 mg/dL [facility] Blood specimen (specimen) 04/15/2020 12:45 PM CDT 04/15/2020 12:45 PM CDT Arturo Nunez MD LAB POCT ORDERABLES - DEVICE Final Result Performing Organization Address [facility] de Phone Number [facility] [address] [address] [facility] [place] [address] * (ABNORMAL) Troponin T, 6 Hour 5th Gen (04/15/2020 12:42 PM CDT) Pathologist [facility] Troponin T, 6 Hr 5th Gen 1,272(H) 6 - 14 ng/L [facility] Troponin T, 0-6 Hr Delta Percent 166(C) % [facility] Comment:Critical result call ed to and read back by Ligia Mancera (RN_) on _04/15/2020 13:16:26 CDT to Kimberly Ann _. Blood specimen (specimen) 04/15/2020 12:42 PM CDT 04/15/2020 12:49 PM CDT Alyssa Amos DO LAB BLOOD ORDERABLES F inal Result Performing Organization Address [facility] Co de Phone Number [facility] [address] [address] [facility] [place] [address] * Lipid panel (04/15/2020 9:38 AM CDT) Pathologist [facility] Cholesterol 135 30 - 199 mg/dL [facility] Comment: Interpretive Data Ages < or = 19 years ??Acceptable: ? <170 mg/dL ??Borderline high: ??170-199 mg/dL ??High: ? >or= 200 mg/dL Ages > or = 20 years ??Desirable: ?<200 mg/dL ??Borderline high: ??200-239 mg/dL ??High: ? >or= 240 mg/dL Literature References: 1. Expert Panel on Integrated Guidelines for Cardiovascular Health and Risk Reduction in Children and Adolescents. Pediatrics 2011;128:S213 2. NCEP Expert Panel. Circulation 2004;110:227 Current Interpretive Data was last revised on 2018. Triglycerides 144 <=149 mg/dL [facility] Comment: Interpretive Data Ages < or = 9 years ??Acceptable: ? <75 mg/dL ??Borderline high: ??75-99 mg/dL ??High: ? >or= 100 mg/dL Ages 10 to 20 years ??Acceptable: ? <90 mg/dL ??Borderline high: ??90-129 mg/dL ??High: ? >or= 130 mg/dL Ages > or = 20 years ??Desirable: ?<150 mg/dL ??Borderline high: ??150-199 mg/dL ??High: ? 200-499 mg/dL ?Very high: ?? >or= 499 mg/dL Literature References: 1. Expert Panel on Integrated Guidelines for Cardiovascular Health and Risk Reduction in Children and Adolescents. Pediatrics 2011;128:S213 2. NCEP Expert Panel. Circulation 2004;110:227 Current Interpretive Data was last revised on 2018. HDL 49 >=40 mg/dL [facility] Comment: Interpretive Data Ages < or = 19 years ??Acceptable: ? >45 mg/dL ??Borderline low: ?? 40-45 mg/dL ??Low: ? <40 mg/dL Ages > or = 20 years ??Desirable: ?>or= 60 mg/dL ??Low: ? <40 mg/dL Literature References: 1. Expert Panel on Integrated Guidelines for Cardiovascular Health and Risk Reduction in Children and Adolescents. Pediatrics 2011;128:S213 2. NCEP Expert Panel. Circulation 2004;110:227 Current Interpretive Data was last revised on 2018. LDL, calculated 57 <=129 mg/dL [facility] Comment: Interpretive Data Ages < or = 19 years ??Acceptable: ? <110 mg/dL ??Borderline high: ??110-129 mg/dL ??High: ?>or= 130 mg/dL Ages > or = 20 years ??Optimal: ? <100 mg/dL ??Near optimal: ?100-129 mg/dL ??Borderline high: ?? 130-159 mg/dL ??High: ?>160 mg/dL Literature References: 1. Expert Panel on Integrated Guidelines for Cardiovascular Health and Risk Reduction in Children and Adolescents. Pediatrics 2011;128:S213 2. NCEP Expert Panel. Circulation 2004;110:227 Current Interpretive Data was last revised on 2018. Non-HDL Cholesterol 86 mg/dL [facility] Comment: Interpretive Data Ages < or = 19 years ??Acceptable: ?<120 mg/dL ??Borderline high: ??120-144 mg/dL ??High: ?>145 mg/dL Ages > or = 20 years ??When triglycerides are >200 mg/dL, Non-HDL cholesterol is a secondary target of ? therapy with treatment goals that are 30 mg/dL greater than the LDL cholesterol target. ? Literature References: 1. Expert Panel on Integrated Guidelines for Cardiovascular Health and Risk Reduction in Children and Adolescents. Pediatrics 2011;128:S213 2. NCEP Expert Panel. Circulation 2004;110:227 Current Interpretive Data was last revised on 2018. Chol/HDL ratio 3 [facility] Blood specimen (specimen) 04/15/2020 9:38 AM CDT 04/15/2020 9:43 AM CDT Narrative BILLY GABRIEL - 04/15/2020 10:40 AM CDT This lipid panel was automatically ordered due to a critical delta for Troponin- T. ?? The dietary status of the patient at the collection time should be correlated with the lipid results. 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 Troponin T, 0-3 Hr Delta Percent 157(C) % [facility] Comment: Critical result called to and read back by Ligia Liu on 04/15/2020 10:23:11 CDT to Maryann Cummings 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 Electronically signed by: Amado Pal M.D. Narrative 04/15/2020 2:06 PM CDT EXAM: ?? XR CHEST 1 VIEW DATE: ?? 04/15/2020 8:30 AM CLINICAL HISTORY: ?? Status post cardiac procedure. COMPARISON: ?? 09/12/2019 FINDINGS: ?? Portable AP radiograph of the chest was obtained. ??The heart size is normal. ??The lungs are well-expanded. ??There are increased interstitial markings bilaterally. ??No evidence of a confluent pulmonary infiltrate or pleural effusion. Procedure Note Amado Pal MD - 04/15/2020 EXAM: XR CHEST 1 VIEW DATE: 04/15/2020 8:30 AM CLINICAL HISTORY: Status post cardiac procedure. COMPARISON: 09/12/2019 FINDINGS: Portable AP radiograph of the chest was obtained. The heart size is normal. The lungs are well-expanded. There are increased interstitial markings bilaterally. No evidence of a confluent pulmonary infiltrate or pleural effusion. IMPRESSION: Chronic interstitial changes in the left. Electronically signed by: Amado Pal M.D. Result [facility] Alyssa Amos DO IMG XR PROCEDURES Lindsay l Result * ECG 12 lead (04/15/2020 9:07 AM CDT) 04/15/2020 9:07 AM CDT Narrative [facility] - 04/15/2020 11:58 AM CDT Vent Rate: 55 bpm RR Interval: 1073 msec HI Interval: 148 msec QRS Duration: 127 msec QT Interval: 457 msec QTC Interval: 447 msec P-R-T [place]: 58 - -34 - -36 degrees SINUS BRADYCARDIA WITH OCCASIONAL VENTRICULAR PREMATURE COMPLEXES MARKED LEFT AXIS DEVIATION ??[QRS AXIS < -30] MODERATE INTRAVENTRICULAR CONDUCTION DELAY ??[110+ ms QRS DURATION] T WAVE ABN CONSIDER INFERIOR ISCHEMIA ABNORMAL ECG Electronically Signed By: Robi Garcia MD, [facility] Result [facility] Alyssa Amos DO ECG ORDERABLES Final Result [facility] * POCT glucose (04/15/2020 7:30 AM CDT) Glucose, POC 160 70 - 199 mg/dL [facility] Blood specimen (specimen) 04/15/2020 7:30 AM CDT 04/15/2020 7:30 AM CDT Arturo Nunez MD LAB POCT ORDERABLES - DEVICE Final Result Performing Organization Address [facility] Co de Phone Number [facility] [address] [address] Department [place] [address] * (ABNORMAL) Troponin T 5th Gen series (Baseline, 3hr, 6hr) (04/15/2020 6:43 AM CDT) Troponin T, Baseline 5th Gen 479(H) 6 - 14 ng/L [facility] Blood specimen (specimen) 04/15/2020 6:43 AM CDT 04/15/2020 8:27 AM CDT us Alyssa Amos DO LAB BLOOD ORDERABLES F inal Result Performing Organization Address [facility] Co de Phone Number [facility] [address] Department [place] [address] * eGFR (04/15/2020 6:43 AM CDT) eGFR 86 mL/min/1.7 3 m2 [facility] Comment: Interpretive Data Reference Interval Normal ?>/= 90 mL/min/1.73m2 Mildly decreased* ? 60 - 89 mL/min/1.73m2 Mildly to moderately decreased ?45 - 59 mL/min/1.73m2 Moderately to severely decreased ??30 - 44 mL/min/1.73m2 Severely decreased ?15 - 29 mL/min/1.73m2 Kidney Failure ?< 15 ??mL/min/1.73m2 *Relative to young adult level If -Syrian multiply value by 1.16. Estimated glomerular filtration rate is determined by the CKD-EPI equation recommended by the National Kidney Foundation (KDIGO 2012 Clinical Practice Guideline for the Evaluation and Management of Chronic Kidney Disease. Kidney Intnl Suppl Nov 2012;3:1). The CKD-EPI equation should not be used for patients with unstable renal function and has not been validated in children and those over 70. Current interpretive data was last reviewed 2016. Blood specimen (specimen) 04/15/2020 6:43 AM CDT 04/15/2020 6:48 AM CDT Najma MATTHEW LAB BLOOD ORDERABLE S Final Result Performing Organization Address City/[facility]/ZIP Co de Phone Number [facility] [address] [employer] [place], [place] [id number] * (ABNORMAL) CBC without differential (04/15/2020 6:43 AM CDT) WBC 16.1(H) 3.8 - 9.9 K/cumm [facility] Hgb 12.1 11.9 - 15.5 g/dL [facility] Hct 37.4 35.6 - 45.5 % [facility] Plt 329 150 - 400 K/cumm [facility] MPV 10.3 9.1 - 12.3 fL [facility] RBC 4.25 3.90 - 5.20 M/cumm [facility] MCV 88.0 81.3 - 96.4 fL [facility] MCH 28.5 27.1 - 33.3 pg [facility] MCHC 32.4 32.3 - 35.7 g/dL [facility] RDW CV 14.2 11.1 - 14.9 % [facility] RDW SD 45.4 35.7 - 48.1 fL [facility] NRBC abs 0.02(H) 0.00 - 0.01 K/cumm [facility] Blood specimen (specimen) 04/15/2020 6:43 AM CDT 04/15/2020 6:48 AM CDT Najma MATTHEW LAB BLOOD ORDERABLE S Final Result Performing Organization Address City/[facility]/ZIP Co de Phone Number [facility]ILL[facility] [address] Department of [employer] [place], [place] [id number] * Phosphorus (04/15/2020 6:43 AM CDT) Phosphorus, pl 3.2 2.3 - 4.5 mg/dL [facility] Blood specimen (specimen) 04/15/2020 6:43 AM CDT 04/15/2020 6:48 AM CDT Najma Cruz [place] LAB BLOOD ORDERABLE S Final Result Performing Organization Address [facility] de Phone Number [facility]EL [address] [address] [facility] [place] [address] * Magnesium (04/15/2020 6:43 AM CDT) Magnesium 1.8 1.4 - 2.5 mg/dL [facility] Blood specimen (specimen) 04/15/2020 6:43 AM CDT 04/15/2020 6:48 AM CDT Najma Cruz [place] LAB BLOOD ORDERABLE S Final Result Performing Organization Address [facility] de Phone Number [facility] GABRIEL [address] [address] [facility] [place] [address] * (ABNORMAL) Comprehensive metabolic panel (04/15/2020 6:43 AM CDT) Sodium 138 135 - 145 mmol/L [facility] Potassium, pl 4.0 3.3 - 4.9 mmol/L [facility] Chloride 106 97 - 110 mmol/L [facility] CO2 20(L) 22 - 32 mmol/L [facility] Anion gap 12 2 - 15 mmol/L [facility] BUN 21 8 - 25 mg/dL [facility] Creatinine 0.62 0.60 - 1.10 mg/dL [facility] Glucose 169 70 - 199 mg/dL [facility] Comment: Interpretive Data Fasting glucose >/= 126 mg/dl is diagnostic for diabetes. ?? Fasting is defined as no caloric intake for at least 8 hours. Fasting glucose between 100 mg/dl to 125 mg/dl is diagnostic of prediabetes. In a patient with classic symptoms of hyperglycemia or hyperglycemic crisis, a random glucose >/= 200 mg/dl is diagnostic for diabetes. In the absence of unequivocal hyperglycemia, results should be confirmed by repeat testing. The classification and Diagnosis of Diabetes Diabetes Care 2017;40 (Suppl. 1):S11. Current interpretive data was last revised 2017. Calcium 8.5 8.5 - 10.3 mg/dL [facility] Bilirubin, total 0.2 0.1 - 1.2 mg/dL [facility] CH Protein, pl 6.2(L) 6.5 - 8.5 g/dL [facility] CH Albumin 3.8 3.5 - 5.0 g/dL [facility] Alk phos 87 40 - 130 Units/L [facility] ALT 16 7 - 45 Units/L [facility] AST 47(H) 10 - 45 Units/L [facility] Blood specimen (specimen) 04/15/2020 6:43 AM CDT 04/15/2020 6:48 AM CDT Najma Cruz PA LAB BLOOD ORDERABLE S Final Result Performing Organization Address City/[facility]/ZIP Co de Phone Number [facility] GABRIEL [address] [address] Department [place] [address] * POCT glucose (04/15/2020 5:14 AM CDT) Glucose, POC 124 70 - 199 mg/dL [facility] Blood specimen (specimen) 04/15/2020 5:14 AM CDT 04/15/2020 5:14 AM CDT Notinfile Unknown LAB POCT ORDERABLES - DEVICE F inal Result Performing Organization Address [facility] Co de Phone Number ARNOLPALMER GABRIEL [address] [address] Department [place] [address] * TEMPOARY PACING INSERT/REPLACE LEAD, PCI AMI REVASCULARIZATION SINGLE VESSEL (W ADAM) [id number] - [id number],LEFT HEART CATHETERIZATION WITH CORONARY ANGIOGRAPHY AND WITH AND WITHOUT LEFT VENTRICULOGRAM (04/15/2020 5:01 AM CDT) Anatomical Region Laterality Modality X-Ray Angiograph y Narrative 04/24/2020 4:09 PM CDT CARDIAC CATHETERIZATION ?? ARTURO NUNEZ MD, [facility] ([facility]) ? Ni Neri ? IP ENCOUNTER: [id number] Date of Procedure: 04/15/2020 ?? BIRTHDATE: 1940 SAFETY PROFESSIONAL: Arturo Nunez MD REFERRING PHYSICIAN: ??[facility] ?? CARDIOVASCULAR PROCEDURE: 1. Selective coronary angiography with left ventriculography 2. ?? AIF above and below the renals 3. ?? Temporary pacemaker wire 4. ?? Pronto catheter thrombectomy 5. ?? PTCA stenting of high-grade 100% occlusion JARETT 0 flow PDA reduced to 0% residual with implantation with 3 mm x 18 mm Xience drug-eluting stent 6. ?? PTCA stenting of high-grade 100% occluded proximal RCA JARETT 0 flow reduced to 0% residual with implantation with 3.5 mm x 38 mm Xience drug-eluting stent 7. ?? Intracoronary Integrilin 8. ?? Sheaths sutured for manual compression ? PREPROCEDURE DIAGNOSES: 1. Patient presents from [facility] where she had demonstrated a ST-elevation inferior wall myocardial infarction. ??Patient started experiencing substernal chest discomfort earlier this evening and had presented the ER. ??He has a history of smoking COPD and prior lung mass. ??She was recently discharged from [facility] with a presentation for pneumonia. ??The patient is reportedly COVID -19 negative ? SPECIMENS REMOVED: None ?? COMPLICATIONS: None ?? ESTIMATED BLOOD LOSS: 50 mL ?? The patient underwent direct physician monitored conscious sedation from the period lasting 77 minutes of conscious sedation time utilizing 2 mg of Versed IV. ??Conscious sedation was administered and monitored by train personnel during the maryan procedural setting of coronary angiogram and intervention ?? PROCEDURAL NARRATIVE: After informed consent was obtained where risks benefits and alternatives of the procedure including option for medical management were discussed with the patient and the present family members. Risks discussed include but are not limited to stroke heart attack, , emergency bypass surgery, vascular injury, pain at site of sheath insertion, vascular surgery, embolic event with loss of limb and loss of digits, dye allergy, dye reaction, dialysis, at a rate of 11/999 for the angiographic portion of the procedure and 1/100 for the interventional part of the procedure. All questions were answered to their satisfaction and then the ??Patient underwent standard sterile prep and drape. The right common femoral area was injected with lidocaine and access was obtained utilizing a micropuncture kit and access was obtained with a 6 Djib[place]ian sheath was inserted using modified seldinger technique. 5F [id number] Jr4 and pigtail ?? catheters were used for angiographic imaging which was performed in various angles to delineate vascular anatomy. ??Seven Djib[place]ian sheath was inserted as this was an inferior wall ST-elevation PR and the 100% occlusion of the RCA proximally was noted temporary pacemaker wire was advanced through the 7 [place]ib[place]ian venous sheath that had been placed after gaining access with a micropuncture kit. ??Findings include: ?? LMT- Large caliber vessel which is widely patent and grossly normal ?? LAD- Large caliber vessel which is widely patent and grossly normal. The first diagonal was Large there is a 20% napkin ring type lesion at the origin of the 1st diagonal vessel. ??The second diagonal was Small. ??There is a segment of myocardial bridging that is noted in the mid segment of the Left Anterior Descending Artery. ??Otherwise the remainder the Left Anterior Descending Artery appears to be widely patent in its course down to the apex ?? LCX- Non-dominant Large caliber AV groove vessel which is widely patent there is a 10% lesion that is noted at the bifurcation of the OM2 and the distal AV groove circumflex. There is Om1 is Small which is widely patent. Om2 is Large which is widely patent. ?? RCA- Dominant Large caliber AV groove vessel which is 100% occluded in the proximal segment there is JARETT 0 flow this is the culprit vessel. ??After the revascularization was performed it was noted that the PDA is Medium which is patent however the distal vasculature appears to be moderately diseased and the PLB is Small which is ??patent. ?? Left ventriculogram- was performed in the MALDONADO view the LVEF was estimated at 50% with normal LV chamber size and inferior basal hypokinetic wall motion. LV pressure-145/11/29 mmHG and AO pressure-157/87/120 mmHg ?? Abdominal aortogram above and below the renals-I had difficulty advancing the guidewire this was performed at the end of the case evaluate the abdominal aorta. ??Aortogram was performed above and below the renals demonstrating normal caliber descending abdominal aorta the proximal aspect of the renal arteries are noted be widely patent. ??The catheter was retracted to the infrarenal location demonstrating that there is a right common iliac 70% stenosis noted. ??Additionally there was a retrograde dissection in the right external iliac artery which was non flow-limiting and antegrade flow was preserved ?? SUMMARY 1. 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 ??Preserved LV systolic function with inferior wall motion abnormality 3. ??Elevated LVEDP and SBP 4. 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 INTERVENTION: ?? Decision was made to proceed with intervention on the right coronary artery. A 6 khmer JR4 guiding catheter was engaged into the ostium of the RCA. Angiomax was used for anticoagulation during the procedure. ?? Temporary pacemaker wire was already ??inserted thresholds were checked and pacemaker was set at 50 beats per minute at 5 mA ?? The lesion was wired with a 190cm crime specialist wire. ? I ran a Pronto catheter down hoping that that would give us the jainism of JARETT 3 flow the Pronto catheter was advanced however there was improvement of flow in the proximal AV groove however the posterior descending artery was noted still be occluded. ?? Angioplasty was then performed using a 2.5 x15 balloon in the proximal RCA. ??This improved flow distally there was clot burden that was noted in the mid AV groove. ??There is 100% occlusion of the posterior descending artery. ??I was able to wire the posterior descending artery and then performed angioplasty in the distal segment of the AV groove into the PDA utilizing the 2.5 x 15 balloon. ?? Intra arterial Integrilin was injected into the right coronary artery. ?? Decision was made to proceed with stenting of the posterior descending artery which was performed using a 3 x 18 Xience ADAM. ?? Decision was made to proceed with stenting of the proximal to mid RCA AV groove utilizing a 3.5 x 38 mm Xience ADAM. ?? Guide wire was removed and final angiograms were performed demonstrating excellent runoff. There was no angiographic evidence of dissection, thrombosis, or perforation. ?? The 100 % lesions were reduced to a 0 % residual with ??JARETT 3 runoff. This was deemed an acceptable result. ?? Patient experienced hypotension during the procedure most likely related to RV involvement IV fluids and dopamine were initiated and she responded very well by maintaining a blood pressure over 120 with that. ?? Hemostasis: 1. Sheaths were sutured into place. ??Would need to do arterial line pressure monitoring while requiring dopamine 2. Maintain temporary pacemaker wire vertex several hours to ensure that patient is not requiring temporary pacing ?? CONCLUSIONS 1. Successful revascularization of the posterior descending artery and proximal to mid segment of the AV groove utilizing 2 Xience drug-eluting stents ?? PLAN 1. Maintain right common femoral arterial sheath for transducing arterial blood pressure while requiring dopamine 2. Remove temporary pacemaker wire in few hours if there is no pacing required this was reviewed with the auto hiker on report 3. Aspirin and Brilinta load 4. Dual anti-platelet therapy for the next 12 months the setting of drug-eluting stents in the RCA vessel. 5. Wean dopamine follow blood pressure with arterial sheath transducer 6. Absolute smoking cessation was recommended 7. Revascularization of the right common iliac as an outpatient 8. Follow-up with [facility] 2-4 weeks ?? Arturo Nunez MD, [facility] [employer]inter [phone] [facility]) Arturo Nunez MD CV CARDIAC CATH PROCED URES Final Result documented in this encounter Visit Diagnoses Not on filedocumented in this encounter Administered Medications Inactive Administered Medications - up to 3 most recent administrations Medication Order MAR Action Action Date Dose Rate Site acetaminophen (TYLENOL) 32 mg/mL oral solution 650 mg 650 mg, feeding tube, Every 4 hours PRN, 1st line for pain, fever, Starting on 04/15/20 at 0536, Administer if patient receiving meds per tube., Indications: Fever, PainIndications:Fever,Pain acetaminophen (TYLENOL) suppository 650 mg 650 mg, rectal, Every 4 hours PRN, 1st line for pain, fever, Starting on 04/15/20 at 0536, Administer if patient cannot tolerate enteral route., Indications: Fever, PainIndications:Fever,Pain acetaminophen (TYLENOL) tablet 650 mg 650 mg, oral, Every 4 hours PRN, 1st line for pain, fever, Starting on 04/15/20 at 0536, Administer if patient can swallow tablets., Indications: Fever, PainIndications:Fever,Pain Given 04/16/2020 11:27 PM CDT 650 mg Given 04/16/2020 9:59 AM CDT 650 mg albuterol 2.5 mg /3 mL (0.083 %) nebulizer solution 2.5 mg 2.5 mg, nebulization, Every 4 hours PRN (incident response engineer), wheezing, Starting on Wed04/15/20 at 0639 aspirin enteric coated tablet 81 mg 81 mg, oral, Daily, First dose on Wed04/16/20 at 0900, Do not crush, chew, cut, dissolve, open or otherwise manipulate tablet/capsule. Given 04/17/2020 8:02 AM CDT 81 mg Given 04/16/2020 9:00 AM CDT 81 mg atorvastatin (LIPITOR) tablet 40 mg 40 mg, oral, Daily after dinner, First dose on Wed04/16/20 at 1830 Given 04/16/2020 5:44 PM CDT 40 mg atropine injection Administer over 1 Minutes, As needed, Starting on Wed04/15/20 at 0354, Intra-Procedure (CV) Given 04/15/2020 3:54 AM CDT 0.5 mg bivalirudin (ANGIOMAX) 250 mg in sodium chloride 0.9% 50 mL infusion Continuous PRN, Starting on Wed04/15/20 at 0340, Intra-Procedure (CV) New Bag 04/15/2020 3:40 AM CDT 1.75 mg/kg/hr 25.6 mL/hr bivalirudin (ANGIOMAX) injection As needed, Starting on Wed04/15/20 at 0340, Intra-Procedure (CV) Given 04/15/2020 3:40 AM CDT 54.75 mg dextrose (D10W) 10% bolus 250 mL 250 mL, intravenous, at 1,000 mL/hr, Administer over 15 Minutes, Every 15 min PRN, blood glucose less than 70 mg/dL and UNABLE to swallow/take PO glucose/juice., Starting on Wed04/15/20 at 0537, After treatment for hypoglycemia, recheck BG followed by treatment every 15 minutes until the BG is greater than 100 mg/dL. Then check BG 1 hour post treatment. If BG is less than 100 mg/dL, repeat Q15 minute BG checks and treatment. Call MD for each episode of hypoglycemia., Indications: hypoglycemic disorderIndications:hyp oglycemic disorder dextrose oral liquid liquid 15 g 15 g, oral, Every 15 min PRN, low blood sugar, blood glucose less than 70 mg/dL, Starting on Wed04/15/20 at 0537, If patient is alert and able to eat/drink, give 15 gm glucose or one juice (4 fluid ounces) NOT ORANGE JUICE. After treatment for hypoglycemia, recheck BG followed by treatment every 15 minutes until the BG is greater than 100 mg/dL. Then check BG 1 hour post-treatment. If BG is less than 100 mg/dL, repeat Q15 minute BG checks and treatment. Call MD for each episode of hypoglycemia., Indications: hypoglycemic disorderIndications:hyp oglycemic disorder DOPamine in dextrose 5% 400 mg/250 mL (1,600 mcg/mL) infusion (premix) Continuous PRN, Starting on Wed04/15/20 at 0403, Intra-Procedure (CV) New Bag 04/15/2020 4:03 AM CDT 5 mcg/kg/min 13.69 mL/hr enoxaparin (LOVENOX) syringe 40 mg 40 mg, subcutaneous, Daily (for enoxaparin), First dose on Wed04/15/20 at 2100, Indications: Deep Vein Thrombosis PreventionIndications:D eep Vein Thrombosis Prevention Given 04/16/2020 8:00 PM CDT 40 mg Left Upper Abdomen Given 04/15/2020 8:30 PM CDT 40 mg Le ft Upper Abdomen eptifibatide (INTEGRILIN) bolus Administer over 1 Minutes, As needed, Starting on Wed04/15/20 at 0353, Intra-Procedure (CV) Given 04/15/2020 3:56 AM CDT 6.2 mL famotidine (PEPCID) tablet 20 mg 20 mg, oral, Daily, First dose on Wed04/17/20 at 0900 Given 04/17/2020 8:02 AM CDT 20 mg fluticasone propionate (FLONASE) 50 mcg/actuation nasal spray 2 spray 2 spray, each nostril, Daily, First dose on Wed04/15/20 at 0900 Given 04/17/2020 8:03 AM CDT 2 sprays glucagon injection 1 mg 1 mg, intramuscular, Administer over 1 Minutes, Every 30 min PRN, low blood sugar, blood glucose less than 70 mg/dL AND no IV access AND unable to take PO glucose/jiuce., Starting on Wed04/15/20 at 0537, After Glucagon is administered, position patient on side if possible to avoid aspiration. Obtain IV access. Follow glucagon treatment with glucose treatment or IV dextrose. After treatment for hypoglycemia, recheck BG followed by treatment every 15 minutes until the BG is greater than 100 mg/dL. Then check BG 1 hour post treatment. If BG is less than 100 mg/dL, repeat Q15 minute BG checks and treatment. Call MD for each episode of hypoglycemia., Indications: HypoglycemiaIndications:Hypoglycemia heparin in 0.9% sodium chloride 1,000 units/500 mL (2 unit/mL) infusion (premix) As needed, Starting on Wed04/15/20 at 0304, Intra-Procedure (CV) Given 04/15/2020 3:31 AM CDT 500 mL Given 04/15/2020 3:04 AM CDT 1,000 mL insulin lispro (HumaLOG) injection 1-2 Units 1-2 Units, subcutaneous, 3 times daily with meals, First dose on Wed04/15/20 at 0800, Blood Sugar Extra Low Dose meal time - PO patients 200 or less No Insulin 201 - 250 1 unit 251 - 299 2 units Greater than 299 Call MD for hyperglycemia management instructions Do NOT hold for NPO status., Indications: Diabetes MellitusIndications:Diabetes Mellitus ioversoL (OPTIRAY 350) injection As needed, Starting on Wed04/15/20 at 0500, Intra-Procedure (CV) Given 04/15/2020 5:00 AM CDT 225 mL lidocaine (XYLOCAINE) 10 mg/mL (1 %) injection As needed, Starting on Wed04/15/20 at 0309, Intra-Procedure (CV), Indications: Administration of Local AnesthesiaIndications:Administratio n of Local Anesthesia Given 04/15/2020 3:09 AM CDT 20 mL Right Groin metoclopramide (REGLAN) injection 5 mg 5 mg, intravenous, Administer over 1 Minutes, Every 8 hours scheduled, First dose on Wed04/15/20 at 0830 Given 04/16/2020 3:23 PM CDT 5 mg Given 04/15/2020 10:00 PM CDT 5 mg Given 04/15/2020 7:55 AM CDT 5 mg midazolam (VERSED) preservative free injection Administer over 2 Minutes, As needed, Starting on Wed04/15/20 at 0312, Intra-Procedure (CV) Given 04/15/2020 3:12 AM CDT 2 mg nitroglycerin in dextrose 5% 50 mg/250 mL (200 mcg/mL) infusion (premix) Continuous PRN, Starting on Wed04/15/20 at 0305, Intra-Procedure (CV) Restarted 04/15/2020 3:34 AM CDT 10 mcg/min 3 mL/hr Rate/Dose Change 04/15/2020 3:15 AM CDT 10 mcg/min 3 mL/hr New Bag 04/15/2020 3:05 AM CDT 20 mcg/min 6 mL/hr ondansetron (ZOFRAN) injection 4 mg 4 mg, intravenous, Administer over 2 Minutes, Every 6 hours PRN, nausea, vomiting, Starting on Wed04/15/20 at 0530, Indications: nausea and vomitingIndications:nausea and vomiting Given 04/15/2020 6:46 AM CDT 4 mg sodium chloride 0.9% bolus Continuous PRN, Starting on Wed04/15/20 at 0354, Intra-Procedure (CV) New Bag 04/15/2020 3:54 AM CDT 500 mL sodium chloride 0.9% infusion Continuous PRN, Starting on Wed04/15/20 at 0300, Intra-Procedure (CV) New Bag 04/15/2020 3:00 AM CDT 75 mL/hr 75 mL/hr ticagrelor (BRILINTA) tablet 90 mg 90 mg, oral, 2 times daily, First dose on Wed04/15/20 at 2100 Given 04/17/2020 8:02 AM CDT 90 mg Given 04/16/2020 8:00 PM CDT 90 mg Given 04/16/2020 9:00 AM CDT 90 mg ticagrelor (BRILINTA) tablet As needed, Starting on Wed04/15/20 at 0436, Intra-Procedure (CV) Given 04/15/2020 4:36 AM CDT 180 mg documented in this encounter Discontinued Medications Medication Sig Discontinue Reason Start Date End Da te fluticasone propionate (FLONASE) 50 mcg/actuation nasal spray Administer 1 spray into each nostril daily Therapy completed 09/15/2019 04/16/2020 losartan (COZAAR) 50 mg tablet Take 1 tablet (50 mg total) by mouth daily Therapy completed 09/16/2019 04/16/2020 sodium chloride (OCEAN) 0.65 % nasal spray Administer 1 spray into each nostril every 2 (two) hours as needed for congestion or rhinitis (irritation) Therapy completed 09/15/2019 04/16/2020 documented as of this encounter Historical Medications * This list may reflect changes made after this encounter. losartan-hydroCHL OROthiazide (HYZAAR) 50-12.5 mg per tablet Take 1 tablet by mouth daily 07/01/2021 gabapentin ER (GRALISE) 600 mg tablet extended release 24 hr Take 600 mg by mouth 3 (three) times a day 06/28/2023 busPIRone (BUSPAR) 10 mg tabletIndications :Generalized Anxiety Disorder Take 10 mg by mouth 2 (two) times a day 06/28/2023 added in this encounter Active and Recently Administered Medications Times are shown in CDT. Scheduled Medication Order 04/15/2020 04/16/2020 04/17/2020 aspirin enteric coated tablet 81 mg 81 mg, oral, Daily, First dose on Wed04/16/20 at 0900, Do not crush, chew, cut, dissolve, open or otherwise manipulate tablet/capsule. 0900 (Given - Provider: Khai Murphy, ROD) 08 (Given - Provider: Priti Hernandez, ROD) atorvastatin (LIPITOR) tablet 40 mg 40 mg, oral, Daily after dinner, First dose on Wed04/16/20 at 1830 1744 (Given - Provider: Khai Murphy, ROD) enoxaparin (LOVENOX) syringe 40 mg 40 mg, subcutaneous, Daily (for enoxaparin), First dose on Wed04/15/20 at 2100, Indications: Deep Vein Thrombosis Prevention 2029 (Given - Provider: Rachell Bolden) 1999 (Given - Provider: Eli Childers, ROD) famotidine (PEPCID) injection 20 mg (CANCELED) 20 mg, intravenous, Administer over 2 Minutes, Daily, First dose on Wed04/15/20 at 0900 0830 (Given - Provider: Ligia Carlin, ROD) 09 (Given - Provider: Khai Murphy, ROD) famotidine (PEPCID) tablet 20 mg 20 mg, oral, Daily, First dose on Wed04/17/20 at 0900 0802 (Given - Provider: Priti Hernandez RN) fluticasone propionate (FLONASE) 50 mcg/actuation nasal spray 2 spray 2 spray, each nostril, Daily, First dose on Wed04/15/20 at 0900 1049 (Not Given - Provider: Ligia Carlin RN - Reason: Other) 1235 (Not Given - Provider: Khai Murphy RN - Reason: Patient/family refused) 0803 (Given - Provider: Priti Hernandez RN) insulin lispro (HumaLOG) injection 1-2 Units 1-2 Units, subcutaneous, 3 times daily with meals, First dose on Wed04/15/20 at 0800, Blood Sugar Extra Low Dose meal time - PO patients 200 or less No Insulin 201 - 250 1 unit 251 - 299 2 units Greater than 299 Call MD for hyperglycemia management instructions Do NOT hold for NPO status., Indications: Diabetes Mellitus 0738 (Not Given - Provider: Ligia Carlin RN - Reason: Order parameters not met)1306 (Not Given - Provider: Ligia Carlin RN - Reason: Order parameters not met)1722 (Not Given - Provider: Ligia Carlin RN - Reason: Other) 0847 (Not Given - Provider: Khai Murphy RN - Reason: Order parameters not met)1255 (Not Given - Provider: Khai Murphy RN - Reason: Order parameters not met)1724 (Not Given - Provider: Khai Murphy RN - Reason: Patient/family refused) 0801 (Not Given - Provider: Priti Hernandez RN - Reason: Order parameters not met)1146 (Not Given - Provider: Priti Hernandez RN - Reason: Patient/family refused) Lactated Ringer's (LR) bolus 500 mL (COMPLETED) 500 mL, intravenous, Once, On Wed04/16/20 at 0845, For 1 dose 0900 (New Bag - Provider: Khai Murphy RN) magnesium sulfate 2 g/50 mL in water (premix) 2 g (COMPLETED) 2 g, intravenous, Administer over 60 Minutes, Once, On Wed04/15/20 at 0815, For 1 dose 0755 (New Bag - Provider: Ligia Carlin RN) metoclopramide (REGLAN) injection 5 mg 5 mg, intravenous, Administer over 1 Minutes, Every 8 hours scheduled, First dose on Wed04/15/20 at 0830 0755 (Given - Provider: Ligia Carlin RN)1556 (Not Given - Provider: Ligia Carlin RN - Reason: Other)2200 (Given - Provider: Rachell Bolden) 0627 (Not Given - Provider: Rachell Bolden - Reason: Patient/family refused)1523 (Given - Provider: Khai Murphy RN)2315 (Not Given - Provider: Eli Childers RN - Reason: Patient/family refused) 0559 (Not Given - Provider: Eli Childers RN - Reason: Loss of IV access) potassium chloride (KAYCIEL) 1.3 mEq/mL oral liquid 40 mEq (COMPLETED) 40 mEq, oral, Once, On Wed04/16/20 at 1500, For 1 dose, Recommend to dilute each 15 mL with at least 6 ounces of water or juice prior to administration. 1521 (Given - Provider: Khai Murphy, ROD) ticagrelor (BRILINTA) tablet 90 mg 90 mg, oral, 2 times daily, First dose on Wed04/15/20 at 2100 2030 (Given - Provider: Rachell Bolden) 0900 (Given - Provider: Khai Murphy, ROD)2000 (Given - Provider: Eli Childers, ROD) 0802 (Given - Provider: Priti Hernandez RN) PRN Medication Order 04/15/2020 04/16/2020 04/17/2020 acetaminophen (TYLENOL) 32 mg/mL oral solution 650 mg(Linked Group 1) 650 mg, feeding tube, Every 4 hours PRN, 1st line for pain, fever, Starting on Wed04/15/20 at 0536, Administer if patient receiving meds per tube., Indications: Fever, Pain 0959 (See Alternative - Provider: Khai Murphy RN)2327 (See Alternative - Provider: Eli Childers, ROD) acetaminophen (TYLENOL) suppository 650 mg(Linked Group 1) 650 mg, rectal, Every 4 hours PRN, 1st line for pain, fever, Starting on Wed04/15/20 at 0536, Administer if patient cannot tolerate enteral route., Indications: Fever, Pain 0959 (See Alternative - Provider: Khai Murphy RN)232 (See Alternative - Provider: Eli Childers, ROD) acetaminophen (TYLENOL) tablet 650 mg(Linked Group 1) 650 mg, oral, Every 4 hours PRN, 1st line for pain, fever, Starting on Wed04/15/20 at 0536, Administer if patient can swallow tablets., Indications: Fever, Pain 0959 (Given - Provider: Khai Murphy RN)2326 (Given - Provider: Eli Childers, ROD) albuterol 2.5 mg /3 mL (0.083 %) nebulizer solution 2.5 mg 2.5 mg, nebulization, Every 4 hours 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 (incident response 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), 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, Starting on Wed04/15/20 at 0639 atropine injection (CANCELED) Administer over 1 Minutes, As needed, Starting on Wed04/15/20 at 0354, Intra-Procedure (CV) 0354 (Given - Provider: Princess Brooks RN) bivalirudin (ANGIOMAX) 250 mg in sodium chloride 0.9% 50 mL infusion (COMPLETED) Continuous PRN, Starting on Wed04/15/20 at 0340, Intra-Procedure (CV) 0340 (New Bag - Provider: Princess Brooks RN) bivalirudin (ANGIOMAX) injection (CANCELED) As needed, Starting on Wed04/15/20 at 0340, Intra-Procedure (CV) 0340 (Given - Provider: Princess Brooks RN - Comment: 10.5ml) dextrose (D10W) 10% bolus 250 mL(Linked Group 2) 250 mL, intravenous, at 1,000 mL/hr, Administer over 15 Minutes, Every 15 min PRN, blood glucose less than 70 mg/dL and UNABLE to swallow/take PO glucose/juice., Starting on Wed04/15/20 at 0537, After treatment for hypoglycemia, recheck BG followed by treatment every 15 minutes until the BG is greater than 100 mg/dL. Then check BG 1 hour post treatment. If BG is less than 100 mg/dL, repeat Q15 minute BG checks and treatment. Call MD for each episode of hypoglycemia., Indications: hypoglycemic disorder dextrose oral liquid liquid 15 g(Linked Group 2) 15 g, oral, Every 15 min PRN, low blood sugar, blood glucose less than 70 mg/dL, Starting on Wed04/15/20 at 0537, If patient is alert and able to eat/drink, give 15 gm glucose or one juice (4 fluid ounces) NOT ORANGE JUICE. After treatment for hypoglycemia, recheck BG followed by treatment every 15 minutes until the BG is greater than 100 mg/dL. Then check BG 1 hour post-treatment. If BG is less than 100 mg/dL, repeat Q15 minute BG checks and treatment. Call MD for each episode of hypoglycemia., Indications: hypoglycemic disorder DOPamine in dextrose 5% 400 mg/250 mL (1,600 mcg/mL) infusion (premix) (COMPLETED) Continuous PRN, Starting on Wed04/15/20 at 0403, Intra-Procedure (CV) 0403 (New Bag - Provider: Princess Brooks, RN) eptifibatide (INTEGRILIN) bolus (CANCELED) Administer over 1 Minutes, As needed, Starting on Wed04/15/20 at 0353, Intra-Procedure (CV) 0356 (Given - Provider: Princess Brooks, ROD) glucagon injection 1 mg 1 mg, intramuscular, Administer over 1 Minutes, Every 30 min PRN, low blood sugar, blood glucose less than 70 mg/dL AND no IV access AND unable to take PO glucose/jiuce., Starting on Wed04/15/20 at 0537, After Glucagon is administered, position patient on side if possible to avoid aspiration. Obtain IV access. Follow glucagon treatment with glucose treatment or IV dextrose. After treatment for hypoglycemia, recheck BG followed by treatment every 15 minutes until the BG is greater than 100 mg/dL. Then check BG 1 hour post treatment. If BG is less than 100 mg/dL, repeat Q15 minute BG checks and treatment. Call MD for each episode of hypoglycemia., Indications: Hypoglycemia heparin in 0.9% sodium chloride 1,000 units/500 mL (2 unit/mL) infusion (premix) (CANCELED) As needed, Starting on Wed04/15/20 at 0304, Intra-Procedure (CV) 0304 (Given - Provider: Arturo Nunez MD)0331 (Given - Provider: Arturo Nunez MD) ioversoL (OPTIRAY 350) injection (CANCELED) As needed, Starting on Wed04/15/20 at 0500, Intra-Procedure (CV) 0500 (Given - Provider: Arturo Nunez MD) lidocaine (XYLOCAINE) 10 mg/mL (1 %) injection (CANCELED) As needed, Starting on Wed04/15/20 at 0309, Intra-Procedure (CV), Indications: Administration of Local Anesthesia 0309 (Given - Provider: Arturo Nunez MD) midazolam (VERSED) preservative free injection (CANCELED) Administer over 2 Minutes, As needed, Starting on Wed04/15/20 at 0312, Intra-Procedure (CV) 0312 (Given - Provider: Princess Brooks RN) nitroglycerin in dextrose 5% 50 mg/250 mL (200 mcg/mL) infusion (premix) (CANCELED) Continuous PRN, Starting on Wed04/15/20 at 0305, Intra-Procedure (CV) 0305 (New Bag - Provider: Princess Brooks RN - Comment: came from [facility])0315 (Rate/Dose Change - Provider: Princess Brooks RN)0322 (Stopped - Provider: Kimber Pedro RN)0334 (Restarted - Provider: Kimbre Pedro RN)0350 (Stopped - Provider: Kimber Pedro RN) ondansetron (ZOFRAN) injection 4 mg 4 mg, intravenous, Administer over 2 Minutes, Every 6 hours PRN, nausea, vomiting, Starting on Wed04/15/20 at 0530, Indications: nausea and vomiting 0646 (Given - Provider: Priti Martínez RN) sodium chloride 0.9% bolus (COMPLETED) Continuous PRN, Starting on Wed04/15/20 at 0354, Intra-Procedure (CV) 0354 (New Bag - Provider: Princess Brooks RN) sodium chloride 0.9% infusion (COMPLETED) Continuous PRN, Starting on Wed04/15/20 at 0300, Intra-Procedure (CV) 0300 (New Bag - Provider: Princess Brooks RN) ticagrelor (BRILINTA) tablet (CANCELED) As needed, Starting on Wed04/15/20 at 0436, Intra-Procedure (CV) 0436 (Given - Provider: Princess Brooks RN) Linked Groups Order Group 1: acetaminophen (TYLENOL) tablet 650 mgJump to med 650 mg, oral, Every 4 hours PRN, 1st line for pain, fever, Starting on Wed04/15/20 at 0536, Administer if patient can swallow tablets., Indications: Fever, Pain Or acetaminophen (TYLENOL) 32 mg/mL oral solution 650 mgJump to med 650 mg, feeding tube, Every 4 hours PRN, 1st line for pain, fever, Starting on Wed04/15/20 at 0536, Administer if patient receiving meds per tube., Indications: Fever, Pain Or acetaminophen (TYLENOL) suppository 650 mgJump to med 650 mg, rectal, Every 4 hours PRN, 1st line for pain, fever, Starting on Wed04/15/20 at 0536, Administer if patient cannot tolerate enteral route., Indications: Fever, Pain Group 2: dextrose oral liquid liquid 15 gJump to med 15 g, oral, Every 15 min PRN, low blood sugar, blood glucose less than 70 mg/dL, Starting on Wed04/15/20 at 0537, If patient is alert and able to eat/drink, give 15 gm glucose or one juice (4 fluid ounces) NOT ORANGE JUICE. After treatment for hypoglycemia, recheck BG followed by treatment every 15 minutes until the BG is greater than 100 mg/dL. Then check BG 1 hour post-treatment. If BG is less than 100 mg/dL, repeat Q15 minute BG checks and treatment. Call MD for each episode of hypoglycemia., Indications: hypoglycemic disorder Or dextrose (D10W) 10% bolus 250 mLJump to med 250 mL, intravenous, at 1,000 mL/hr, Administer over 15 Minutes, Every 15 min PRN, blood glucose less than 70 mg/dL and UNABLE to swallow/take PO glucose/juice., Starting on Wed04/15/20 at 0537, After treatment for hypoglycemia, recheck BG followed by treatment every 15 minutes until the BG is greater than 100 mg/dL. Then check BG 1 hour post treatment. If BG is less than 100 mg/dL, repeat Q15 minute BG checks and treatment. Call MD for each episode of hypoglycemia., Indications: hypoglycemic disorder documented in this encounter Orders Medications Ordered That Prince ht Not Have Been Administered Count Last Ordered Date First Ordered Date atorvastatin (LIPITOR) tablet 40 mg 1 04/16 famotidine (PEPCID) tablet 20 mg 1 04/16/20 20 Lactated Ringer's (LR) bolus 500 mL 1 04/16 potassium chloride (KAYCIEL) 1.3 mEq/mL oral liquid 40 mEq 1 04/16/2020 acetaminophen (TYLENOL) 32 m g/mL oral solution 650 mg 1 04/15/2020 acetaminophen (TYLENOL) suppository 650 mg 1 04/15/2020 acetaminophen (TYLENOL) tablet 650 mg 1 albuterol 2.5 mg /3 mL (0.08 3 %) nebulizer solution 2.5 mg 1 04/15/2020 aspirin enteric coated tablet 81 mg 1 04/15 dextrose (D10W) 10% bolus 250 mL 04/15/20 dextrose oral liquid liquid 15 g 1 04/15/20 20 enoxaparin (LOVENOX) syringe 40 mg 1 2019 famotidine (PEPCID) injection 20 mg 1 04/15 fluticasone propionate (FLON ASE) 50 mcg/actuation nasal spray 2 spray 1 04/15/2020 glucagon injection 1 mg 1 04/15/2020 insulin lispro (HumaLOG) inj ection 1-2 Units 1 04/15/2020 magnesium sulfate 2 g/50 mL in water (premix) 2 g 1 04/15/2020 metoclopramide (REGLAN) injection 5 mg 1 ondansetron (ZOFRAN) injection 4 mg 1 04/15 ticagrelor (BRILINTA) tablet 90 mg 1 2019 Lab Orders Without Results Count Last Ordered D ate First Ordered Date POCT GLUCOSE DEVICE 8 04/17/2020 04/15/20 20 Diet Count Last Ordered Date First Orde red Date ADULT DISCHARGE DIET 1 04/17/2020 Nursing Count Last Ordered Date First Orde red Date DISCHARGE ACTIVITY 4 04/17/2020 FOLLOW UP WITH ESTABLISHED PROVIDER 1 04/17 documented in this encounter Care Teams Profiler Operator Relationship Specialty Start Date End Date Ginny Cordero PA PCP - General 09/13/19 06/30/21 documented as of this encounter
--- OUTSIDE RECORDS SUMMARY | 2024-12-08 03:48 | XMS_ITS | Encounter Summary ---
Author Organization [facility] Address [address] [place] [address] Phone Care Team Providers Care Rotor Assembler Name Role Phone Ginny Cordero Primary Care Pr ovider Encounter Details Date Type Department Care Team (Late st Contact Info) Description 08/25/2019 Orders Only [facility] Pulmonary [address] Advanced [facility] [address]th [place] [address] [place] [address] Albert Baker MD [address] [place], [place] [id number] Chronic obstructive pulmonary disease, unspecified COPD type (CMS/HCC) (Primary Dx) Social History Tobacco Use Types Packs/Day Years Used Date Smoking Tobacco: Never Assessed Comments Unknown Sex and Gender Information Value Date Recorded Sex Assigned at Not on file 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
--- OUTSIDE RECORDS SUMMARY | 2024-12-08 03:48 | XMS_ITS | Encounter Summary ---
Author Organization [facility] Address [address] [place] [address] Care Team Providers Care Moving Picture Producer Name Role Phone Tonia Corderoalia MATTHEW Primary Care Pr ovider Encounter Details Date Type Department Care Team (Latest Contact Info) Description 04/15/2020 8:28 AM CDT - 04/15/2020 11:59 PM CDT Hospital Encounter 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 Gender Identity Not on file Sexual Orientation Not on file documented as of this encounter Medications at Time of Discharge acetaminophen (TYLENOL) 325 mg tabletIndication s:Fever,Pain Take 2 tablets (650 mg total) by mouth every 4 (four) hours as needed for pain 30 tablet 04/17/2020 albuterol HFA (PROVENTIL HFA,VENTOLIN HFA,PROAIR HFA) 90 mcg/actuation inhaler Take 2 puffs by mouth 4 (four) times a day aspirin 81 mg enteric coated tablet Take 1 tablet (81 mg total) by mouth daily 30 tablet 04/18/2020 2 atorvastatin (LIPITOR) 40 mg tablet Take 1 tablet (40 mg total) by mouth daily after dinner 30 tablet 04/17/2020 1 busPIRone (BUSPAR) 10 mg tabletIndication s:Generalized Anxiety Disorder Take 10 mg by mouth 2 (two) times a day 3 busPIRone (BUSPAR) 10 mg tablet Take by mouth every 12 hours 02/06/2020 1 fluticasone propionate (FLONASE) 50 mcg/actuation nasal spray Administer 1 spray into each nostril daily 1 Inhaler 09/15/2019 0 gabapentin ER (GRALISE) 600 mg tablet extended release 24 hr Take 600 mg by mouth 3 (three) times a day 3 losartan (COZAAR) 50 mg tablet Take 1 tablet (50 mg total) by mouth daily 30 tablet 09/16/2019 0 losartan-hydroCH LOROthiazide (HYZAAR) 50-12.5 mg per tablet Take 1 tablet by mouth daily 1 sodium chloride (OCEAN) 0.65 % nasal spray Administer 1 spray into each nostril every 2 (two) hours as needed for congestion or rhinitis (irritation) 15 mL 09/15/2019 0 ticagrelor (BRILINTA) 90 mg tablet Take 1 tablet (90 mg total) by mouth 2 (two) times a day 30 tablet 11 04/17/2020 1 documented as of this encounter Discharge Disposition Disposition Code Departure Means Destination Discharge to home or self care documented in this encounter Plan of Treatment Not on file documented as of this encounter Procedures Procedure Name Priority Date/Time Associated Diagnosis Comments XR CHEST 1 VIEW IP Routine 04/15/2020 9:23 AM CDT documented in this encounter Results * XR Chest 1 Vw Portable (04/15/2020 9:23 AM CDT) Anatomical Region Laterality Modality Body, Chest N/A Computed Radiogr aphy 04/15/2020 2:05 PM CDT Impressions 04/15/2020 2:06 PM CDT Chronic interstitial changes in the left. Electronically signed by: Mahogany Steiner 04/15/2020 2:06 PM CDT EXAM: ?? XR [...] left. Electronically signed by: Amado Pal M.D. Alyssa Amos DO IMG XR PROCEDURES Lindsay l Result documented in this encounter Visit Diagnoses Not on filedocumented in this encounter Care Teams Moving Picture Producer Relationship Specialty Start Date End Date Ginny Cordero PA PCP - General 09/13/19 06/30/21 documented as of this encounter
--- OUTSIDE RECORDS SUMMARY | 2024-12-08 03:48 | XMS_ITS | Encounter Summary ---
Author Organization [facility] Healthcare Address [address] [place] [address] Care Team Providers Care Chef'S Assistant Name Role Phone Unavailable Primary Care Provider Unavailabl e Encounter Details Date Type Department Care Team (Late st Contact Info) Description 03/29/2013 10:32 AM CDT Hospital Encounter [facility] Garth Snyder MD [address] [address] Backache; Pain in soft tissues of limb; Displacement of lumbar intervertebral disc without myelopathy; Spinal stenosis of lumbar region without neurogenic claudication; Acquired spondylolisthesis; Other postprocedural states Social History Tobacco Use Types Packs/Day Years Used Date Smoking Tobacco: Never Assessed Comments Unknown Sex and Gender Information Value Date Recorded Sex Assigned at Not on file 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 1. ??Status post lumbar decompression at L3-4 and L4-5 with marked improvement in spinal canal stenosis. 2. ??Annular bulging and facet arthropathy resulting in multilevel foraminal stenosis, not appreciably changed compared with MRI from 12/01/2011. 3. ??Mild spinal canal stenosis at L1-2, L2-3 and L5-S1. 4. ??Stable Grade I spondylolisthesis at L4-5. THIS IS AN ELECTRONICALLY VERIFIED REPORT 03/29/2013 1:54 PM: ??Scott Juarez D.O. Scott Juarez D.O. :bb 12:14 PM 12:57 PM [EOD] Narrative 03/29/2013 2:01 PM CDT EXAMINATION: ??MRI of the lumbar spine without contrast HISTORY: ??Low back pain radiating to both lower extremities. ??History of lumbar decompression 07/13/2012. TECHNIQUE: ??Sagittal and axial T1 and T2-weighted sequences were performed without contrast. COMPARISON: ??Lumbar MRI from [facility] dated 12/01/2011. ??Lumbar radiographs 07/13/2012. FINDINGS: ??For purposes of this dictation, the lowest fully developed disc space is denoted as L5-S1. There is persistent Grade I spondylolisthesis at L4-5 currently measuring 5.5 mm. ??Minor retrolisthesis is also observed at L1-2, L2-3 and to a lesser extent L3-4. ??There is no interval compression fracture or suspicious marrow replacement process. ??The degree of disc desiccation and loss of disc height is similar to the prior MRI and remains moderate to severe in nature. ??The conus terminates at L1 and is appropriate in signal and morphology. ??A discrete cord tethering lesion is not identified. ??There have been interval postsurgical changes of bilateral laminectomies at L3-4 and L4-5. At the T12-L1 level there is a persistent circumferential disc bulge with facet hypertrophic changes and thickening of the ligamentum flavum. ??There is no significant spinal canal stenosis. ??The lateral recesses are maintained. ?? Mild right and moderate left foraminal stenosis is observed. ??This is grossly unchanged. At the L1-2 level there is a circumferential disc bulge with facet hypertrophic changes and thickening of the ligamentum flavum, stable. ??There is perhaps mild spinal canal stenosis but there is no focal lateral recess narrowing. ??Disc material and facet hypertrophy result in severe right and moderate left foraminal stenosis, stable. At the L2-3 level there is a circumferential disc bulge with facet hypertrophic changes and thickening of the ligamentum flavum resulting in mild spinal canal stenosis. ??There is no lateral recess narrowing. ??Disc material and superior facet hypertrophy results in moderate right and severe left foraminal stenosis, stable. At the L3-4 level there is a circumferential disc bulge with residual facet hypertrophic changes. ??No significant residual spinal canal stenosis is observed. ??There is no focal lateral recess narrowing. ??Disc and superior facet hypertrophy contribute to moderate right and mild left foraminal narrowing, stable. At the L4-5 level there is unroofed disc material and facet hypertrophic changes but the degree of spinal canal stenosis has improved without significant residual. ??There is mild narrowing of the lateral recesses. ??Mild bilateral foraminal stenosis is unchanged. At the L5-S1 level there is a circumferential disc bulge with facet hypertrophic changes and thickening of the ligamentum flavum resulting in mild spinal canal stenosis, stable. ??There is no lateral recess narrowing. ?? Moderate right and severe left foraminal stenosis is unchanged. Procedure Note Provider, MD Dustin - 04/08/2021 EXAMINATION: MRI of the lumbar spine without contrast HISTORY: Low back pain radiating to both lower extremities. History of lumbar decompression 07/13/2012. TECHNIQUE: Sagittal and axial T1 and T2-weighted sequences were performed without contrast. COMPARISON: Lumbar MRI from [facility] dated 12/01/2011. Lumbar radiographs 07/13/2012. FINDINGS: For purposes of this dictation, the lowest fully developed disc space is denoted as L5-S1. There is persistent Grade I spondylolisthesis at L4-5 currently measuring5.5 mm. Minor retrolisthesis is also observed at L1-2, L2-3 and to a lesser extent L3-4. There is no interval compression fracture or suspiciousmarrow replacement process. The degree of disc desiccation and loss of discheight is similar to the prior MRI and remains moderate to severe in nature. The conus terminates at L1 and is appropriate in signal and morphology. A discrete cord tethering lesion is not identified. There have beeninterval postsurgical changes of bilateral laminectomies at L3-4 and L4-5. At the T12-L1 level there is a persistent circumferential disc bulge with facet hypertrophic changes and thickening of the ligamentum flavum. Thereis no significant spinal canal stenosis. The lateral recesses aremaintained. Mild right and moderate left foraminal stenosis is observed. This isgrossly unchanged. At the L1-2 level there is a circumferential disc bulge with facet hypertrophic changes and thickening of the ligamentum flavum, stable.There is perhaps mild spinal canal stenosis but there is no focal lateral recess narrowing. Disc material and facet hypertrophy result in severe right and moderate left foraminal stenosis, stable. At the L2-3 level there is a circumferential disc bulge with facet hypertrophic changes and thickening of the ligamentum flavum resulting inmild spinal canal stenosis. There is no lateral recess narrowing. Discmaterial and superior facet hypertrophy results in moderate right and severe left foraminal stenosis, stable. At the L3-4 level there is a circumferential disc bulge with residualfacet hypertrophic changes. No significant residual spinal canal stenosis is observed. There is no focal lateral recess narrowing. Disc and superior facet hypertrophy contribute to moderate right and mild left foraminal narrowing, stable. At the L4-5 level there is unroofed disc material and facet hypertrophic changes but the degree of spinal canal stenosis has improved without significant residual. There is mild narrowing of the lateral recesses.Mild bilateral foraminal stenosis is unchanged. At the L5-S1 level there is a circumferential disc bulge with facet hypertrophic changes and thickening of the ligamentum flavum resulting inmild spinal canal stenosis, stable. There is no lateral recess narrowing. Moderate right and severe left foraminal stenosis is unchanged. IMPRESSION: 1. Status post lumbar decompression at L3-4 and L4-5 with markedimprovement in spinal canal stenosis. 2. Annular bulging and facet arthropathy resulting in multilevelforaminal stenosis, not appreciably changed compared with MRI from 12/01/2011. 3. Mild spinal canal stenosis at L1-2, L2-3 and L5-S1. 4. Stable Grade I spondylolisthesis at L4-5. THIS IS AN ELECTRONICALLY VERIFIED REPORT 03/29/2013 1:54 PM: Scott Juarez D.O. Scott Juarez D.O. :bb 12:14 PM 12:57 PM [EOD] Garth Bustillo MD IMG MRI PROCEDURES Fin al Result documented in this encounter Visit Diagnoses Diagnosis Backache Unspecified backache Pain in soft tissues of limb Displacement of lumbar intervertebral disc without myelopathy Spinal stenosis of lumbar region without neurogenic claudication Acquired spondylolisthesis Other postprocedural states documented in this encounter
--- OUTSIDE RECORDS SUMMARY | 2024-12-08 03:48 | XMS_ITS | Encounter Summary ---
Author Organization 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
--- OUTSIDE RECORDS SUMMARY | 2024-12-08 03:48 | XMS_ITS | Encounter Summary ---
Author Organization [facility] Healthcare Address [address] [place] [address] Care Team Providers Care Executive Staff Assistant Name Role Phone Ginny Cordero Primary Care Pr ovider Roxana Graham NP Primary Care Provider [phone] Ginny Cordero Primary Care Pr ovider Reason for Visit * Reason Comments Chest Pain Encounter Details Date Type Department Care Team (Late st Contact Info) Description 09/11/2019 12:43 PM CDT - 09/15/2019 2:45 PM CDT Hospital Encounter [facility] [address] [place] [id number] Africa Parada MD [address] [place] [address] Chris Dickerson Jr., MD [address] [place] [address] Christie Olmstead MD [address] [place] [id number] Ann Antony MD [address] [place] [address] HCAP ([facility] pneumonia) (Primary Dx); Pneumonia due to infectious organism, unspecified laterality, unspecified part of lung; Chronic obstructive pulmonary disease, unspecified COPD type (CMS/HCC); Hospital-acquired pneumonia Discharge Disposition: Discharge to home or self care Social History Tobacco Use Types Packs/Day Years Used Date Smoking Tobacco: Never Assessed Comments Unknown Sex and Gender Information Value Date Recorded Sex Assigned at Not on file 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 Gender Identity Not on file Sexual Orientation Not on file documented as of this encounter Last Filed Vital Signs Vital Sign Reading Time Taken Comments Blood Pressure 121/66 09/15/2019 11:20 AM CDT Pulse 63 09/15/2019 11:20 AM CDT Temperature 36.6 ??C (97.9 ??F) 09/15/2019 11:20 AM C DT Respiratory Rate 19 09/15/2019 11:20 AM CDT Oxygen Saturation 99% 09/15/2019 11:20 AM CDT Inhaled Oxygen Concentration - - Weight 73 kg (160 lb 14.4 oz) 09/13/2019 1:00 PM CDT Height 152.4 cm (5') 09/11/2019 11:53 AM CDT Body Mass Index 31.42 09/11/2019 11:53 AM CDT documented in this encounter Discharge Diagnoses Diagnosis Chronic obstructive pulmonary disease with (acute) lower respiratory infection (HCC) - CHRONIC OBSTRUCTIVE PULMONARY DISEASE WITH (ACUTE) LOWER RESPIRATORY INFECTION Pneumonia, unspecified organism - PNEUMONIA, UNSPECIFIED ORGANISM Sepsis, unspecified organism (HCC) - SEPSIS, UNSPECIFIED ORGANISM Acidosis - ACIDOSIS Chronic obstructive pulmonary disease with (acute) exacerbation (HCC) - CHRONIC OBSTRUCTIVE PULMONARY DISEASE WITH (ACUTE) EXACERBATION Nicotine dependence, cigarettes, uncomplicated - NICOTINE DEPENDENCE, CIGARETTES, UNCOMPLICATED Unspecified inflammatory spondylopathy, site unspecified (HCC) - UNSPECIFIED INFLAMMATORY SPONDYLOPATHY, SITE UNSPECIFIED Hypotension, unspecified - HYPOTENSION, UNSPECIFIED Essential (primary) hypertension - ESSENTIAL (PRIMARY) HYPERTENSION Unspecified essential hypertension Nosocomial condition - NOSOCOMIAL CONDITION Spinal stenosis, lumbar region without neurogenic claudication - SPINAL STENOSIS, LUMBAR REGION WITHOUT NEUROGENIC CLAUDICATION Anemia, unspecified - ANEMIA, UNSPECIFIED Presence of artificial knee joint, bilateral - PRESENCE OF ARTIFICIAL KNEE JOINT, BILATERAL Major depressive disorder, single episode, unspecified - MAJOR DEPRESSIVE DISORDER, SINGLE EPISODE, UNSPECIFIED Solitary pulmonary nodule - SOLITARY PULMONARY NODULE Tachycardia, unspecified - TACHYCARDIA, UNSPECIFIED Tachypnea, not elsewhere classified - TACHYPNEA, NOT ELSEWHERE CLASSIFIED Personal history of peptic ulcer disease - PERSONAL HISTORY OF PEPTIC ULCER DISEASE Other senior care (current) drug therapy - OTHER [facility] (CURRENT) DRUG 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 - [facility] (CURRENT) USE OF INHALED STEROIDS Personal history of pneumonia (recurrent) - PERSONAL HISTORY OF PNEUMONIA (RECURRENT) Personal history of malignant neoplasm of other organs and systems - PERSONAL HISTORY OF MALIGNANT NEOPLASM OF OTHER ORGANS AND SYSTEMS documented in this encounter Discharge Summaries * Priti Gross MD - 09/15/2019 1:36 PM CDT Inpatient Discharge Summary BRIEF OVERVIEW Admitting Provider: Ann Antony MD Discharge Provider: Ann Antony MD Primary Care Physician at Discharge: TIFF Flores [phone] Admission Date: 09/11/2019 Discharge Date: 09/15/2019 Admission Location: [facility] Primary Discharge Diagnosis: Hospital-acquired pneumonia Secondary Discharge Diagnosis: COPD (chronic obstructive pulmonary disease) ([facility]) Hospital-acquired pneumonia Hypotension Elevated troponin DETAILS OF HOSPITAL STAY Presenting Problem/History of Present Illness: Ni Neri??is a 78-year-old female with h/o COPD and HTN who presented with SOB x 1-2 days. ?? 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 About 1 day before admission on 09/11, she had f/c, productive cough of yellow/green sputum. Endorsed pleuritic chest pain, diaphoresis, and increased forgetfulness. ?? She was recently hospitalized for PNA w/ sepsis at an OSH in [place] (05/2019). She was also treated by her PCP for a COPD exacerbation with prednisone and azithromycin about two weeks prior to admission.? On initial presentation to the ED, she was febrile (101.5) and tachycardiac (114) with cxr with RMLinfiltrate c/f pneumonia. WBC 42 with lactate 2.4. She was admitted to medicine for HCAP and started on vanc/cefe/azithro. On the floor, she became hypotensive overnight with BP 73/63->70/47->81/37. Lactate at 2.2. She received 4L fluids with minimal response on BP. She was transferred to ICUfor close monitoring of BP, stabilization and further management. She has not needed supplemental oxygen throughout admission and saturates well on room air. Her BP remained stable while in the ICU and she was transferred back to the floor on 09/14. Vancomycin was d/c'd 09/14 as low concern for MRSA and troughs were persistently subtherapeutic. ?? On arrival to the floor, patient is asymptomatic, afebrile and HDS. WBC continues to downtrend (25->14.7). Continued on cefe/azithro. Patient says she would like to be referred to a oncologist to follow-up her COPD and a lung nodule found on imaging when she was hospitalized in [place] in 05/2019. She followed up with her PCP about this her ordered a repeat CT in 06/2019 which showed scattered pulmonary nodules measuring 5mm or less, rec optional chest CT for follow-up given underlying COPD. She already has an appointment with Pulmonology on 12/08/19 for PFTs but says she is worried that this is too far away. Her son has lung cancer that was not detected till late and her family doesn't want the same for her. She is a current smoker, 44pack-year history but has cut down since her hospitalization in May. ?? She has chronic back pain 2/2 arthritis that she receives injections for in [place]. She had back surgery in the past and was talking with her neurosurgeon about additional surgery but deferred for now. She hasn't had an injection since before her in May. 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 She endorses being chronically more fatigued since then and will get more winded with stairs. Denies orthopnea or PND. Per PCP notes in [place], recent TTE with significantly reduced EF but still ok. ?? Hospital Course: Elevated troponin Trop was 0.07 on admission and downtrended. No ST changes on EKG. Likely demand in setting of PNA. ?? Hospital-acquired pneumonia On presentation, febrile, WBC 42, RUL infiltrate on CXR, satting well on RA. Empirically started onvanc/cefe/azithro for HCAP given recent hospitalization for PNA/sepsis in 05/2019 (within 90 days). Was admitted to general medicine floor but became hypotensive overnight to 70s systolic and requiredtransfer to ICU. Received 4L fluid resuscitation. BP remained stable in ICU and she transferred back to the floor on 09/14. She did not require any supplemental oxygen throughout admission. Vancomycin was d/c'd 09/14 as low concern for MRSA and troughs were persistently subtherapeutic. On arrival to the floor she remained HDS and satting well on RA. S/p cefe (09/11-09/15), azithro (09/11- 09/13), vanc (09/11-09/14). On the floor she was transitioned to PO levofloxacin 750 q48hrs to complete 7-day course total (end 09/17). PT/OT recommended SNF at discharge but patient refused so orders placed for home health with PT/OT. Patient remained asymptomatic and clinically stable. Discharged on 09/15to complete one additional dose of levofloxacin on 09/17. She will need a repeat CXR in 6 weeks to assess resolution of her pneumonia. ?? COPD (chronic obstructive pulmonary disease) ([facility]) Chart history of COPD. No PFTs in our system. On albuterol PRN at home. Recently treated by her PCPfor a COPD exacerbation with prednisone and azithromycin about two weeks prior to admission.??She has approximately one hospitalization per year for COPD exacerbation. She has never been intubated. She had a prior hospitalization for pneumonia in 2013. She follows with PCP in [place] who manages her COPD medications (on multiple inhalers but patient not sure which). She was treated empirically for COPD exacerbation this admission with duonebs q4hrs and azithromycin (09/11-09/13). She remained on RA throughout admission. She has an appointment with pulmonology in 11/2019 for PFTs. Discharged to resume her home inhalers. Active Issues Requiring Follow-up: Pneumonia - needs repeat CXR in 6 weeks Hypertension - hypotensive during admission, restarted losartan 50 and tolerated well, can restart hctz per PCP COPD Test Results Pending at Discharge: Order Current Status MRSA culture Nasal In process Blood culture Blood Preliminary result Blood culture Blood Preliminary result Operative Procedures Performed: none Other Procedures: None Pertinent Test Results: none Discharge Details Physical Exam at Discharge: Discharge Condition: good Pulse: 63 Resp: 19 BP: 121/66 Temp: 36.6 ??C (97.9 ??F) Weight: 73 kg (160 lb 14.4 oz) Pertinent Exam Findings at Discharge: General:??pleasant elderly female sitting in bed in NAD CV: RRR. Nml S1, S2. No m/r/g. No peripheral edema. Intact distal pulses. Resp: CTAB. No wheezes/rhonchi/rales. NLB on RA. GI: Soft, NTND. No rebound or guarding. +BS. Discharge Disposition: Discharge to home or self care Code Status at Discharge: Full Code Discharge Instructions: Activity Instructions Discharge activity: Resume normal activity Diet Instructions Adult Discharge Diet Diet Type: Restrict salt intake to less than 2000 mg per day Other Instructions Ambulatory referral to Home Health Service Line: Home Health Primary disciplines requested: Physical Therapy Secondary disciplines requested: Occupational Therapy Home Health Services: Strengenthing/ Balance Strengthening Exercises Therapy to Eval/ Treat Physician to follow patient's care (the person listed here will be responsible for signing ongoing orders): PCP Requested Start of Care Date: Within 2 - 3 Days I attest that I or another qualified licensed provider saw the patient 90 days prior to or 30 days post admission and this face to face encounter meets the necessary Home Health requirements. The face to face encounter occurred on (date): 09/15/2019 The encounter with the patient was in whole, or in part, for the following medical condition, whichis the primary reason for home health care. (List medical condition): hospital acquired pneumonia I certify that, based on my findings, the following services are medically necessary skilled home health services: Strengthening Exercises Strengenthing/ Balance Therapy to Eval/ Treat Clinical findings that support the need for home care: Other Frequent falls requiring safety eval/therapy Medical condition requiring skilled assessment/education Comment: Inpatient PT/OT recommend home health with PT/OT I certify that my clinical findings support patient's homebound status. Homebound criteria met because: Poor endurance Abnormal gait/unsteady balance resulting in fall risk Discharge Medications: Current Medications TAKE these medications fluticasone propionate 50 mcg/actuation nasal spray Commonly known as: FLONASE Administer 1 spray into each nostril daily levoFLOXacin 750 mg tablet Commonly known as: LEVAQUIN Take 1 tablet (750 mg total) by mouth every other day for 1 dose Take last dose on 09/17. losartan 50 mg tablet Commonly known as: COZAAR Take 1 tablet (50 mg total) by mouth daily Start taking on: September 16, 2019 PROAIR HFA 90 mcg/actuation inhaler Generic drug: albuterol HFA Take 2 puffs by mouth 4 (four) times a day sodium chloride 0.65 % nasal spray Commonly known as: OCEAN Administer 1 spray into each nostril every 2 (two) hours as needed for congestion or rhinitis (irritation) Outpatient Follow-Up: Future Appointments Date Time Provider Department Center 12/08/2019 11:00 AM PFT 4 [facility] 8[facility] PFT [facility] 12/08/2019 1:00 PM Albert Reynolds MD PUL [facility] Cosigned by Ann Antony MD at 09/18/2019 2:54 PM CDT documented in this encounter Discharge Instructions * Discharge Instructions* Priti Gross MD - 09/15/2019 1:36 PM CDT Images from the original note were not included. Medications to START taking: -levofloxacin 750 mg (antibiotic for pneumonia): take last dose on 09/17 -losartan 50mg (for blood pressure): Your blood pressure became very low during your hospitalization. At home, you take a combination pill with losartan and hydrocholorothiazide. You were restarted on your home losartan and tolerated this well. You should talk with your primary care doctor about restarting the hydroclorothiazide. In the meantime, take the losartan 50mg daily. -flonase nasal spray (for congestion/runny nose): Take 1 spray into each nostril every day -ocean nasal spray (for congestion/irritation): Take 1 spray into each nostril every few hours as needed Important to remember: You should follow-up with your primary care doctor to adjust your blood pressure medications and get a repeat chest xray to assess resolution of your pneumonia. You have follow-up scheduled with Pulmonology in November. It is important to attend this appointment to follow-up your COPD and for lung function testing. We discussed the pulmonary nodules seen on imaging in [place]. The mass they identified was due to your pneumonia. However, given your smoking history, it was difficult to tell if there was anything underlying that might be concerning for cancer. They recommended a repeat CT scan which was ordered by your PCP. That scan showed several scattered, very small pulmonary nodules. Many people have nodules similar to this that are related to scar tissue from previous infections. However, given your smoking history, you should have a repeat CT sca n in a year to continue to monitor them. There is no need for any urgent additional imaging or biopsy of these nodules. Pneumonia WHAT YOU NEED TO KNOW: Pneumonia is an infection in your lungs caused by bacteria, viruses, fungi, or parasites. You can become infected if you come in contact with someone who is sick. You can get pneumonia if you recently had surgery or needed a ventilator to help you breathe. Pneumonia can also be caused by accidentally inhaling saliva or small pieces of food. Pneumonia may cause mild symptoms, or it can be severe and life-threatening. ?? DISCHARGE INSTRUCTIONS: Seek care immediately if: ?? You cough up blood. ? Your heart beats more than 100 beats in 1 minute. ? You are very tired, confused, and cannot think clearly. ? You have chest pain or trouble breathing. ? Your lips or fingernails turn romo or blue. Contact your healthcare provider if: ?? Your symptoms are the same or get worse 48 hours after you start antibiotics. ? Your fever is not below 99??F (37.2??C) 48 hours after you start antibiotics. ? You have a fever higher than 101??F (38.3??C). ? You cannot eat, or you have loss of appetite, nausea, or are vomiting. ? You have questions or concerns about your condition or care. Medicines: ?? Antibiotics treat pneumonia caused by bacteria. ? Acetaminophen decreases pain and fever. It is available without a doctor's order. Ask how much to take and how often to take it. Follow directions. Read the labels of all other medicines you are using to see if they also contain acetaminophen, or ask your doctor or pharmacist. Acetaminophen can cause liver damage if not taken correctly. Do not use more than 4 grams (4,000 milligrams) total of acetaminophen in one day. ? NSAIDs , such as ibuprofen, help decrease swelling, pain, and fever. This medicine is available with or without a doctor's order. NSAIDs can cause stomach bleeding or kidney problems in certain people. If you take blood thinner medicine, always ask your healthcare provider if NSAIDs are safe foryou. Always read the medicine label and follow directions. ? Take your medicine as directed. Contact your healthcare provider if you think your medicine is not helping or if you have side effects. Tell him or her if you are allergic to any medicine. Keep a list of the medicines, vitamins, and herbs you take. Include the amounts, and when and why you take them. Bring the list or the pill bottles to follow-up visits. Carry your medicine list with you in case of an emergency. Follow up with your healthcare provider as directed: You will need to return for more tests. Write down your questions so you remember to ask them during your visits. Manage your symptoms: ?? Rest as needed. Rest often throughout the day. Alternate times of activity with times of rest. ? Drink liquids as directed. Ask how much liquid to drink each day and which liquids are best for you. Liquids help thin your mucus, which may make it easier for you to cough it up. ? Do not smoke. Avoid secondhand smoke. Smoking increases your risk for pneumonia. Smoking also makes it harder for you to get better after you have had pneumonia. Ask your healthcare provider for information if you need help to quit smoking. ? Use a cool mist humidifier. A humidifier will help increase air moisture in your home. This may make it easier for you to breathe and help decrease your cough. ? Keep your head elevated. You may be able to breathe better if you lie down with the head of yourbed up. Prevent pneumonia: ?? Prevent the spread of germs. Wash your hands often with soap and water. Use gel hand cleanser when there is no soap and water available. Do not touch your eyes, nose, or mouth unless you have washed your hands first. Cover your mouth when you cough. Cough into a tissue or your shirtsleeve so youdo not spread germs from your hands. If you are sick, stay away from others as much as possible. ? Limit alcohol. Women should limit alcohol to 1 drink a day. Men should limit alcohol to 2 drinksa day. A drink of alcohol is 12 ounces of beer, 5 ounces of wine, or 1?? ounces of liquor. ? Ask about vaccines. You may need a vaccine to help prevent pneumonia. Get an influenza (flu) vaccine every year as soon as it becomes available. ?? 2017 [employer] Information is for End User's use only and may not be sold, redistributed or otherwise used for commercial purposes. All illustrations and images included in CareNotes?? are the copyrighted property of [employer]. or [employer]. The above information is an shopper's aide only. It is not intended as medical advice for individual conditions or treatments. Talk to your doctor, nurse or pharmacist before following any medical regimen to see if it is safe and effective for you. COPD (Chronic Obstructive Pulmonary Disease) WHAT YOU NEED TO KNOW: What is chronic obstructive pulmonary disease (COPD)? COPD is a lung disease that makes it hard foryou to breathe. It is usually a result of lung damage caused by years of irritation and inflammation in your lungs. This limits air flow in your lungs. Smoking, pollution, genetics, or a history of lung infections can increase your risk for COPD. What are the signs and symptoms of COPD? ?? Shortness of breath ?? A dry cough ?? Coughing fits that bring up mucus from your lungs ?? Wheezing and chest tightness How is COPD diagnosed? Your healthcare provider will ask about your symptoms and examine you. He orshe will ask if a family member has COPD or breathing problems. He or she will ask if you are a current or former smoker. Tell your provider if you have other medical conditions, such as heart disease or asthma. Tell him or her how long you have had symptoms, what makes them worse, and how they affect your life. You may need the following: ?? Lung function tests measure the airflow in your lungs and show how well you can breathe. ?? Blood tests check for infection and measure oxygen levels in your blood. ?? A chest x-ray is done to check for other lung problems. ?? CT scan pictures may be taken of your lungs. You may be given contrast liquid to help your lungsshow up better in the pictures. Tell the healthcare provider if you have ever had an allergic reaction to contrast liquid. How is COPD treated? ?? Medicines may be used to open your airways, decrease swelling and inflammation in your lungs, ortreat an infection. You may need 2 or more medicines. A short-acting medicine relieves symptoms quickly. Long-acting medicines will control or prevent symptoms. Ask your healthcare provider for more information about the medicines you are given and how to use them safely. ?? Pulmonary rehabilitation is a program to help you manage your symptoms and improve your quality of life. It may include nutritional counseling and exercise to strengthen your lungs. ?? Oxygen may help you breathe easier and feel more alert if you have severe COPD. ?? Surgery is sometimes done if all other treatments have failed. A lung reduction is surgery to remove part of your damaged lung. A lung transplant is the replacement of your lung with a donor lung.Ask your healthcare provider for more information about surgery for COPD. What are the risks of COPD? COPD raises your risk for diabetes, high blood pressure, and heart disease. Without treatment, COPD can become life-threatening. What can I do to help make breathing easier? ?? Use pursed-lip breathing any time you feel short of breath. Take a deep breath in through your nose. Slowly breathe out through your mouth with your lips pursed for twice as long as you inhaled. You can also practice this breathing pattern while you bend, lift, climb stairs, or exercise. It slows down your breathing and helps move more air in and out of your lungs. ?? Do not smoke, and avoid others who smoke. Nicotine and other substances can cause lung irritation or damage and make it harder for you to breathe. Do not use e-cigarettes or smokeless tobacco. They still contain nicotine. Ask your healthcareprovider for information if you currently smoke and need help to quit. For support and more information: ?? Smokefree.gov Phone: Web Address: www.[employer]Qu[employer].gov ?? Be aware of and avoid anything that makes your symptoms worse. Stay out of high altitudes and places with high humidity. Stay inside, or cover your mouth and nose with a scarf when you are outsideduring cold weather. Stay inside on days when air pollution or pollen counts are high. Do not use aerosol sprays such as deodorant, bug spray, and hair spray. How can I manage COPD and help prevent exacerbations? COPD is a serious condition that gets worse over time. A COPD exacerbation means your symptoms suddenly get worse. It is important to prevent exacerbations. An exacerbation can cause more lung damage. COPD cannot be cured, but you can take action to feel better and prevent COPD exacerbations: ?? Protect yourself from germs. Germs can get into your lungs and cause an infection. An infection in your lungs can create more mucus and make it harder to breathe. An infection can also create swelling in your airways and prevent air from getting in. You can decrease your risk for infection by doing the following: ?? Wash your hands often with soap and water. Carry germ-killing gel with you. You can use the gel to clean your hands when soap and water are not available. ?? Do not touch your eyes, nose, or mouth unless you have washed your hands first. ?? Always cover your mouth when you cough. Cough into a tissue or your shirtsleeve so you do not spread germs from your hands. ?? Try to avoid people who have a cold or the flu. If you are sick, stay away from others as much as possible. ?? Drink more liquids. This will help to keep your air passages moist and help you cough up mucus. Ask how much liquid to drink each day and which liquids are best for you. ?? Exercise daily. Exercise for at least 20 minutes each day to help increase your energy and decrease shortness of breath. Talk to your healthcare provider about the best exercise plan for you. ?? Ask about vaccines. Your healthcare provider may recommend that you get regular flu and pneumonia vaccines. Pneumonia can become life-threatening for a person who has COPD. Ask about other vaccines you may need.Ask your healthcare provider about the flu and pneumonia vaccines. All adults should get the flu (influenza) vaccine every year as soon as it becomes available. The pneumonia vaccine isgiven to adults aged 65 or older to prevent pneumococcal disease, such as pneumonia. Adults aged 19to 64 years who are at high risk for pneumococcal disease also should get the pneumococcal vaccine.It may need to be repeated 1 or 5 years later. Call 911 if: ?? You feel lightheaded, short of breath, and have chest pain. When should I seek immediate care? ?? You are confused, dizzy, or feel faint. ?? Your arm or leg feels warm, tender, and painful. It may look swollen and red. ?? You cough up blood. When should I contact my healthcare provider? ?? You have more shortness of breath than usual. ?? You need more medicine than usual to control your symptoms. ?? You are coughing or wheezing more than usual. ?? You are coughing up more mucus, or it is a different color or has a different odor. ?? You gain more than 3 pounds in a week. ?? You have a fever, a runny or stuffy nose, and a sore throat, or other cold or flu symptoms. ?? Your skin, lips, or nails start to turn blue. ?? You have swelling in your legs or ankles. ?? You are very tired or weak for more than a day. ?? You notice changes in your mood, or changes in your ability to think or concentrate. ?? You have questions or concerns about your condition or care. CARE AGREEMENT: You have the right to help plan your care. Learn about your health condition and how it may be treated. Discuss treatment options with your caregivers to decide what care you want to receive. You always have the right to refuse treatment. The above information is an shopper's aide only. It is not intended as medical advice for individual conditions or treatments. Talk to your doctor, nurse or pharmacist before following any medical regimen to see if it is safe and effective for you. ?? 2017 [employer] Information is for End User's use only and may not be sold, redistributed or otherwise used for commercial purposes. All illustrations and images included in CareNotes?? are the copyrighted property of [employer] or [employer]. documented in this encounter Medications at Time of Discharge albuterol HFA (PROVENTIL HFA,VENTOLIN HFA,PROAIR HFA) 90 mcg/actuation inhaler Take 2 puffs by mouth 4 (four) times a day levoFLOXacin (LEVAQUIN) 750 mg tabletIndication s:Pneumonia, Hospital Acquired Take 1 tablet (750 mg total) by mouth every other day for 1 dose Take last dose on 09/17. 1 tablet 09/15/2019 9 fluticasone propionate (FLONASE) 50 mcg/actuation nasal spray Administer 1 spray into each nostril daily 1 Inhaler 09/15/2019 0 losartan (COZAAR) 50 mg tablet Take 1 tablet (50 mg total) by mouth daily 30 tablet 09/16/2019 0 sodium chloride (OCEAN) 0.65 % nasal spray Administer 1 spray into each nostril every 2 (two) hours as needed for congestion or rhinitis (irritation) 15 mL 09/15/2019 0 documented as of this encounter Ordered Prescriptions Prescription Sig Dispense Quantity Refills Last Filled Start Date End Date sodium chloride (OCEAN) 0.65 % nasal spray Administer 1 spray into each nostril every 2 (two) hours as needed for congestion or rhinitis (irritation) 15 mL 09/15/2019 0 losartan (COZAAR) 50 mg tablet Take 1 tablet (50 mg total) by mouth daily 30 tablet 09/16/2019 0 levoFLOXacin (LEVAQUIN) 750 mg tabletIndications: Pneumonia, Hospital Acquired Take 1 tablet (750 mg total) by mouth every other day for 1 dose Take last dose on 09/17. 1 tablet 09/15/2019 9 fluticasone propionate (FLONASE) 50 mcg/actuation nasal spray Administer 1 spray into each nostril daily 1 Inhaler 09/15/2019 0 documented in this encounter Discharge Disposition Disposition Code Departure Means Destination Discharge to home or self care documented in this encounter Progress Notes * Audrey Le RN - 09/15/2019 2:01 PM CDT 09/15/19 1400 Discharge Summary Chart reviewed For Medical Necessity Does patient have a planned readmission to hospital planned? No Discharge Disposition Home Equipment/Provider Needs Patient Refused Home Health Services Discharge Additional Assistance Does the patient need discharge transport arranged? No Post Discharge Care Provider Post Discharge Care Plan DC Summary has been faxed to next level of care provider (see Follow Up Providers) Patient is medically stable for discharge to home today. PT/OT recs for SNF. Patient declines SNF placement and declines HH SN/PT/OT. MD Gross notified. Patient states she has scheduled her own follow up for 09/18. Family will provide transportation home. Patient agrees to plan for discharge. Strategic Intelligence Officer will continue to follow discharge plan of care until the patient is discharged. If needed, please contact me at [phone] * Priti Gross MD - 09/15/2019 7:04 AM CDT General Medicine Daily Progress Name: Ni Neri Today: September 15, 2019 : 1940 Age: 78 y.o. female [id number] Subjective Ni Neri is a 78 y.o. female with chief complaint of HCAP. Interval History: -NAEO. -On cefe/azithro (09/11-): remains afebrile, WBC downtrending, satting well on RA -Patient feels well this AM. No CP, SOB. -PT/OT rec SNF but patient refuses (in this case rec HH with PT/OT) -patient concerned about pulmonary nodules seen on CT scan, assured her that these do not need urgent follow-up and it is recommended that she get a repeat scan in a year Objective Vitals: 24hr Min/Max: Temp Min: 36.6 ??C (97.9 ??F) Max: 36.9 ??C (98.4 ??F) Pulse Min: 61 Max: 80 BP Min: 108/57 Max: 158/84 Resp Min: 15 Max: 24 SpO2 Min: 94 % Max: 100 % Most Recent : Vitals: 09/15/19 1120 BP: 121/66 Pulse: 63 Resp: 19 Temp: 36.6 ??C (97.9 ??F) SpO2: 99% I/O last 2 completed shifts: In: 1370 [P.O.:1370] Out: 1200 [Urine:1200] I/O this shift: In: 120 [P.O.:120] Out: - Physical Exam: General: pleasant elderly female sitting in bed in NAD HENT: NCAT. MMM. Sclera nonicteric Neck: Supple, no LAD. CV: RRR. Nml S1, S2. No m/r/g. No peripheral edema. Intact distal pulses. Resp: CTAB. No wheezes/rhonchi/rales. NLB on RA. GI: Soft, NTND. No rebound or guarding. +BS. MSK: No joint deformities, swelling. Heme: No bruising or petechiae. Neuro: A&Ox3. No gross focal deficits. Psych: Appropriate mood/affect. Ext: WWP. Multiple age spots but no rash or cyanosis. Lab/Diagnostic Review: Recent Results (from the past 24 hour(s)) Basic metabolic panel Collection Time: 09/14/19 9:22 PM Result Value Ref Range Sodium 142 135 - 145 mmol/L Potassium, pl 3.8 3.3 - 4.9 mmol/L Chloride 108 97 - 110 mmol/L CO2 22 22 - 32 mmol/L Anion gap 12 2 - 15 mmol/L BUN 10 8 - 25 mg/dL Creatinine 0.71 0.60 - 1.10 mg/dL Glucose 123 70 - 199 mg/dL Calcium 9.1 8.5 - 10.3 mg/dL CBC with auto differential Collection Time: 09/14/19 9:22 PM Result Value Ref Range WBC 11.1 (H) 3.8 - 9.9 K/cumm Hgb 12.1 11.9 - 15.5 g/dL Hct 38.0 35.6 - 45.5 % Plt 291 150 - 400 K/cumm MPV 10.3 9.1 - 12.3 fL RBC 4.44 3.90 - 5.20 M/cumm MCV 85.6 81.3 - 96.4 fL MCH 27.3 27.1 - 33.3 pg MCHC 31.8 (L) 32.3 - 35.7 g/dL RDW CV 14.2 11.1 - 14.9 % RDW SD 44.3 35.7 - 48.1 fL NRBC abs 0.00 0.00 - 0.01 K/cumm Differential, auto Collection Time: 09/14/19 9:22 PM Result Value Ref Range Neutrophil abs 7.6 (H) 1.7 - 6.5 K/cumm Imm gran abs 0.0 0.0 - 0.1 K/cumm Lymphocyte abs 2.3 0.8 - 3.3 K/cumm Monocyte abs 0.8 0.2 - 0.8 K/cumm Eosinophil abs 0.3 0.0 - 0.5 K/cumm Basophil abs 0.0 0.0 - 0.1 K/cumm Neutrophil pct 68.2 % Imm gran pct 0.5 % Lymphocyte pct 21.0 % Monocyte pct 6.9 % Eosinophil pct 2.9 % Basophil pct 0.5 % I have reviewed the laboratory results. Imaging Results: XR Chest 1 View Narrative: EXAMINATION: 1 view chest radiograph Impression: Comparison is made to chest radiograph dated 09/11/2019 at 12:08 PM. Cardiomediastinal silhouette is normal. The left lung is clear. There is no pleural effusion or pneumothorax. There is thickening along the right horizontal fissure as well an unchanged focal consolidation in the right upper lobe consistent with pneumonia. Follow-up chest radiograph to ensure clearance is recommended. Dictated by: Calvin Meza M.D. The radiology attending physician has personally reviewed this study, and had reviewed and/or edited this written report and agrees with it. Electronically signed by: Navid Morgan M.D. I have reviewed above imaging. ASSESSMENT AND PLAN: Ni Neri is a 78 y.o. with h/o HTN, COPD who presents as transfer from the SICU after admission for HCAP. Elevated troponin Assessment & Plan Resolved Trop 0.07 on admission -> 0.06. No ST changes on EKG. Likely demand in setting of PNA. Hospital-acquired pneumonia Assessment & Plan On presentation, febrile, WBC 42, RUL infiltrate [...] refuses so rec HH with PT/OT (ordered) COPD (chronic obstructive pulmonary disease) ([facility]) Assessment & Plan Chart history of COPD. No PFTs in our system. On albuterol PRN at home. Recently treated by her PCPfor a COPD exacerbation with prednisone and azithromycin about two weeks prior to admission. She has approximately one hospitalization per year for COPD exacerbation. She has never been intubated. She had a prior hospitalization for pneumonia in 2013. She follows with PCP in [place] who manages her COPD medications (on multiple inhalers but patient not sure which). - duonebs q4hrs - s/p azithro (09/11-09/13) - has appt with pulmonology in 11/2019 for PFTs FENGI: Adult Diet Regular #PPX: lovenox #code status: Full Code #dispo: home today on PO abx Priti Gross MD 09/15/2019 11:39 AM [id number] Cosigned by Ann Antony MD at 09/15/2019 2:05 PM CDT Associated attestation - Ann Antony MD - 09/15/2019 2:05 PM CDT I have seen and examined the patient on 09/15/19. I agree with the findings and plan of care as documented in the resident's/fellow's note. S: patient feeling well and ready for discharge. No shortness of breath. Some mild weakness after ICU stay. Refusing SNF O: able to ambulate independently. Heart RRR, lungs clear A/P Discharge home with levaquin to complete 7 day course Send home with home health (patient refusing SNF) Restart home inhalers at Discharge (pt unclear what she is on but it sounds like a combination maintenance inhaler and this issue can be followed up by her PCP) Repeat CXR in 6 weeks to ensure resolution of pneumonia Follow up with pulmonary Md appointment Follow up with PCP Encouraged smoking cessation * Scott Chavez MD - 09/14/2019 2:45 PM CDT Surgical ICU Daily Progress Team: RED AM Subjective Patient is a 78 y.o. female admitted on 09/11/2019 12:43 PM with chief complaint of PNA and hypotension minimally responsive to fluid resuscitation. Interval History: No acute overnight event. Continues to be HDS during the day. Restart home med Losartan, continues to hold ACTZ. 5 day antibiotics will end tomorrow. Objective Physical Exam: Gen: AAOx3, no acute distress, not diaphoretic, appears stated age HEENT: NC/AT, PERRL, neck supple, no tracheal deviation CV: RRR, no m/r/g Pulm: tachypneic, diminished breath sounds bilaterally, wheezing in b/l lung murphy Abd: BS+, soft, non-tender, non-distended Ext: b/l LE no edema, rash, or lesions Lines: L PIV x1 Vital signs for last 24 hours: Temp: [36.6 ??C -36.8 ??C] 36.8 ??C Pulse: [58-80] 67 BP: (134-160)/(68-114) 138/68 Resp: [15-22] 17 SpO2: [94 %-100 %] 99 % Pulmonary Support: O2 Therapy: None (Room air) Intake/Output: No intake or output data in the 24 hours ending 09/18/19 1836 Lab/Radiology/Diagnostic Review: Laboratory review: Lab results in the last 24 hours: No results found for this or any previous visit (from the past 24 hour(s)). Imaging review: CXR (09/12/19): - thickening along R horizontal fissure and unchanged focal consolidation in RUL consistent with pneumonia. Assessment/Plan Active Problems: COPD (chronic obstructive pulmonary disease) ([facility]) Hospital-acquired pneumonia Hypotension Elevated troponin ICU SYSTEMS ASSESSMENT: NEURO: #Acute Pain: - APAP 650mg q4h PRN ?? CV: #Shock Resolved. HDS, no pressors required since admission to ICU. ?? #Elevated Lactate Level lacate 2.4 -> 1.1 -> 2.2. Stopped trending. ?? #Elevated Troponin C/o constant pleuritic CP localized to R midupper chest since yesterday. Initial trop negative, nowtrending up 0.03 -> 0.07->0.06 ?? PULM: Has home duobens but does not use regularly. Saturates well on RA. Wheezing on PE. - CXR 09/11: patchy infiltrate adjacent to the fissure suggesting developing PNA - Continue Duonebs q6h scheduled, q4h PRN - Continue abx as below ?? GI: Diet: Adult regular Bowel regimen: no PUD PPx: Home famotidine 20mg daily ?? RENAL: Fluid balance goal: Auto-diuresis Maintenance IV fluids: no Electrolyte repletion orders: PRN ?? HEME: #Anemia - H/H stable - No s/s bleeding, no indication for transfusion, continue to monitor closely ENDO: - ICU SSI ?? ID: #Leukocytosis - WBC dowtrending - Continue antibiotics: vanc (), cefepime (), azithromycin () - Cultures: UA neg, Bcx x2 09/11 NGTD, RVP neg ?? MSK: - No known issue - PT/OT Intensive Care Unit Standards of Care: Restraints: None PUD prophylaxis: Home famotidine 20 mg daily DVT prophylaxis: SCDs, lovenox 40mg daily Vascular access: L PIV x1 Code status: Full Dispo: ICU w/ TTF tomorrow pending ongoing clinical stability Scott Chavez MD 6:36 PM 09/18/19 Cosigned by Taras Morrell MD at 10/02/2019 9:33 AM BUSINESS EXECUTIVE NESS EXECUTIVE * Faby Morrissey RP - 09/14/2019 10:10 AM CDT Patient profile has been reviewed by a clinical pharmacy coordinator on 09/14/2019. Case reviewed onrounds with multidisciplinary team or outside of rounds with prescribers as necessary. Additional significant interventions or issues related to ongoing monitoring are listed below as appropriate. Discontinue vancomycin. Add 5 day stop date to cefepime. Discontinue nicotine gum. Initiate home losartan. Faby Morrissey RPh, Pharm.D. * Melinda Means MD - 09/14/2019 1:59 AM CDT Surgical ICU Daily Progress Team: RED PM Subjective Patient is a 78 y.o. female admitted on 09/11/2019 12:43 PM with chief complaint of PNA and hypotension minimally responsive to fluid resuscitation. Interval History: - HDS off pressors today - ultrasound-guided IV overnight - repleted K Objective Physical Exam: Gen: AAOx3, no acute distress, not diaphoretic, appears stated age HEENT: NC/AT, PERRL, neck supple, no tracheal deviation CV: RRR, no m/r/g Pulm: tachypneic, diminished breath sounds bilaterally, wheezing in b/l lung murphy Abd: BS+, soft, non-tender, non-distended Ext: b/l LE no edema, rash, or lesions Lines: L PIV x1 Vital signs for last 24 hours: Temp: [36.5 ??C (97.7 ??F)-37 ??C (98.6 ??F)] 36.8 ??C (98.2 ??F) Pulse: [66-92] 80 BP: (98-162)/(55-89) 136/69 Resp: [13-25] 15 SpO2: [98 %-100 %] 99 % Hemodynamics: MAP (mmHg): [61-110] 87 Pulmonary Support: O2 Therapy: None (Room air) Intake/Output: Intake/Output Summary (Last 24 hours) at 09/14/2019 0201 Last data filed at 09/14/2019 0150 Gross per 24 hour Intake 1630 ml Output 2275 ml Net -645 ml Lab/Radiology/Diagnostic Review: Laboratory review: Lab results in the last 24 hours: Recent Results (from the past 24 hour(s)) Troponin I Collection Time: 09/13/19 3:09 AM Result Value Ref Range Troponin I 0.06 (H) 0.00 - 0.03 ng/mL POCT glucose Collection Time: 09/13/19 7:15 AM Result Value Ref Range Glucose, POC 93 70 - 199 mg/dL Vancomycin, trough Collection Time: 09/13/19 2:05 PM Result Value Ref Range Vancomycin, trough 4.5 (L) 10.0 - 20.9 mcg/mL POCT glucose Collection Time: 09/13/19 3:19 PM Result Value Ref Range Glucose, POC 110 70 - 199 mg/dL CBC with auto differential Collection Time: 09/13/19 10:12 PM Result Value Ref Range WBC 14.7 (H) 3.8 - 9.9 K/cumm Hgb 10.9 (L) 11.9 - 15.5 g/dL Hct 34.5 (L) 35.6 - 45.5 % Plt 246 150 - 400 K/cumm MPV 11.0 9.1 - 12.3 fL RBC 4.10 3.90 - 5.20 M/cumm MCV 84.1 81.3 - 96.4 fL MCH 26.6 (L) 27.1 - 33.3 pg MCHC 31.6 (L) 32.3 - 35.7 g/dL RDW CV 14.3 11.1 - 14.9 % RDW SD 44.0 35.7 - 48.1 fL NRBC abs 0.00 0.00 - 0.01 K/cumm Magnesium Collection Time: 09/13/19 10:12 PM Result Value Ref Range Magnesium 2.2 1.4 - 2.5 mg/dL Phosphorus Collection Time: 09/13/19 10:12 PM Result Value Ref Range Phosphorus, pl 2.6 2.3 - 4.5 mg/dL Differential, auto Collection Time: 09/13/19 10:12 PM Result Value Ref Range Neutrophil abs 9.8 (H) 1.7 - 6.5 K/cumm Imm gran abs 0.1 0.0 - 0.1 K/cumm Lymphocyte abs 3.5 (H) 0.8 - 3.3 K/cumm Monocyte abs 1.0 (H) 0.2 - 0.8 K/cumm Eosinophil abs 0.3 0.0 - 0.5 K/cumm Basophil abs 0.0 0.0 - 0.1 K/cumm Neutrophil pct 66.7 % Imm gran pct 0.4 % Lymphocyte pct 23.9 % Monocyte pct 6.5 % Eosinophil pct 2.2 % Basophil pct 0.3 % Basic metabolic panel Collection Time: 09/13/19 10:12 PM Result Value Ref Range Sodium 142 135 - 145 mmol/L Potassium, pl 3.4 3.3 - 4.9 mmol/L Chloride 109 97 - 110 mmol/L CO2 23 22 - 32 mmol/L Anion gap 10 2 - 15 mmol/L BUN 10 8 - 25 mg/dL Creatinine 0.90 0.60 - 1.10 mg/dL Glucose 120 70 - 199 mg/dL Calcium 8.7 8.5 - 10.3 mg/dL POCT glucose Collection Time: 09/13/19 11:15 PM Result Value Ref Range Glucose, POC 122 70 - 199 mg/dL Imaging review: CXR (09/12/19): - thickening along R horizontal fissure and unchanged focal consolidation in RUL consistent with pneumonia. Assessment/Plan Active Problems: Pneumonia Hypotension ICU SYSTEMS ASSESSMENT: NEURO: #Acute Pain: - APAP 650mg q4h PRN ?? CV: #Shock - BP dropped overnight on the floor 70-85s/35-55s. S/p 4L fluids with BPs minimally responsive to fluid resuscitation. Upon arrival at ICU, SBP has been around 100s/60s. MAP 74. - HDS, no pressors. ?? #Elevated Lactate Level lacate 2.4 -> 1.1 -> 2.2. Stopped trending. ?? #Elevated Troponin C/o constant pleuritic CP localized to R midupper chest since yesterday. Initial trop negative, nowtrending up 0.03 -> 0.07->0.06 ?? PULM: Has home duobens but does not use regularly. Saturates well on RA. Wheezing on PE. - CXR 09/11: patchy infiltrate adjacent to the fissure suggesting developing PNA - Continue Duonebs q6h scheduled, q4h PRN - Continue abx as below ?? GI: Diet: Adult regular Bowel regimen: no PUD PPx: Home famotidine 20mg daily ?? RENAL: Fluid balance goal: Auto-diuresis Maintenance IV fluids: no Electrolyte repletion orders: PRN UOP: 1.7L ?? HEME: #Anemia - H/H stable - No s/s bleeding, no indication for transfusion, continue to monitor closely ENDO: - ICU SSI ?? ID: #Leukocytosis - WBC dowtrending - Continue antibiotics: vanc (09/11-), cefepime (09/11-), azithromycin (09/11-) - Cultures: UA neg, Bcx x2 09/11 NGTD, RVP neg - Vanc q24h -> q12h ?? MSK: - No known issue - PT/OT Intensive Care Unit Standards of Care: Restraints: None PUD prophylaxis: Home famotidine 20 mg daily DVT prophylaxis: SCDs, lovenox 40mg daily Vascular access: L PIV x1 Code status: Full Dispo: ICU w/ TTF tomorrow pending ongoing clinical stability Melinda Means MD Neurosurgery, PGY-1 2:01 AM 09/14/19 Cosigned by Temitope Rios MD at 09/14/2019 8:38 PM CDT * Scott Chavez MD - 09/13/2019 7:10 PM CDT Surgical ICU Daily Progress Team: RED AM Subjective Patient is a 78 y.o. female admitted on 09/11/2019 12:43 PM with chief complaint of PNA and hypotension minimally responsive to fluid resuscitation. Interval History: - Patient admitted to ICU in s/o hypotension w/ minimal response to 4L IVF for close BP monitoring,stabilization, and further management. No supplemental O2 requirement, saturating well on RA. - troponin-I rising <0.03 -> 0.03 -> 0.07-> 0.06. EKG tomorrow - Vanc trough subtherapeutic. Q24h -> Q12h Objective Physical Exam: Gen: AAOx3, no acute distress, not diaphoretic, appears stated age HEENT: NC/AT, PERRL, neck supple, no tracheal deviation CV: RRR, no m/r/g Pulm: tachypneic, diminished breath sounds bilaterally, wheezing in b/l lung murphy Abd: BS+, soft, non-tender, non-distended Ext: b/l LE no edema, rash, or lesions Lines: L PIV x1 Vital signs for last 24 hours: Temp: [36.5 ??C (97.7 ??F)-37 ??C (98.6 ??F)] 37 ??C (98.6 ??F) Pulse: [66-92] 78 BP: (98-162)/(55-89) 159/89 Resp: [13-30] 25 SpO2: [98 %-100 %] 100 % Hemodynamics: MAP (mmHg): [61-110] 110 Pulmonary Support: O2 Therapy: None (Room air) Intake/Output: Intake/Output Summary (Last 24 hours) at 09/13/20191909 Last data filed at 09/13/2019 1805 Gross per 24 hour Intake 1130 ml Output 2075 ml Net -945 ml Lab/Radiology/Diagnostic Review: Laboratory review: Lab results in the last 24 hours: Recent Results (from the past 24 hour(s)) CBC with auto differential Collection Time: 09/12/19 9:11 PM Result Value Ref Range WBC 25.7 (H) 3.8 - 9.9 K/cumm Hgb 11.5 (L) 11.9 - 15.5 g/dL Hct 35.9 35.6 - 45.5 % Plt 218 150 - 400 K/cumm MPV 11.5 9.1 - 12.3 fL RBC 4.20 3.90 - 5.20 M/cumm MCV 85.5 81.3 - 96.4 fL MCH 27.4 27.1 - 33.3 pg MCHC 32.0 (L) 32.3 - 35.7 g/dL RDW CV 14.5 11.1 - 14.9 % RDW SD 45.1 35.7 - 48.1 fL NRBC abs 0.00 0.00 - 0.01 K/cumm Phosphorus Collection Time: 09/12/19 9:11 PM Result Value Ref Range Phosphorus, pl 2.4 2.3 - 4.5 mg/dL Magnesium Collection Time: 09/12/19 9:11 PM Result Value Ref Range Magnesium 1.6 1.4 - 2.5 mg/dL Basic metabolic panel Collection Time: 09/12/19 9:11 PM Result Value Ref Range Sodium 142 135 - 145 mmol/L Potassium, pl 3.9 3.3 - 4.9 mmol/L Chloride 110 97 - 110 mmol/L CO2 21 (L) 22 - 32 mmol/L Anion gap 11 2 - 15 mmol/L BUN 14 8 - 25 mg/dL Creatinine 0.82 0.60 - 1.10 mg/dL Glucose 96 70 - 199 mg/dL Calcium 8.7 8.5 - 10.3 mg/dL Manual Differential Collection Time: 09/12/19 9:11 PM Result Value Ref Range Differential Manual Cells Counted 113 Neutrophil abs 21.6 (H) 1.7 - 6.5 K/cumm Imm gran abs 0.0 0.0 - 0.1 K/cumm Lymphocyte abs 3.0 0.8 - 3.3 K/cumm Monocyte abs 0.7 0.2 - 0.8 K/cumm Eosinophil abs 0.5 0.0 - 0.5 K/cumm Neutrophil pct 84.0 % Lymphocyte pct 10.6 % Monocyte pct 2.7 % Eosinophil pct 1.8 % Variant lymphs 0.9 (H) 0.0 - 0.0 % Troponin I Collection Time: 09/12/19 9:11 PM Result Value Ref Range Troponin I 0.07 (H) 0.00 - 0.03 ng/mL POCT glucose Collection Time: 09/12/19 11:40 PM Result Value Ref Range Glucose, POC 101 70 - 199 mg/dL Troponin I Collection Time: 09/13/19 3:09 AM Result Value Ref Range Troponin I 0.06 (H) 0.00 - 0.03 ng/mL POCT glucose Collection Time: 09/13/19 7:15 AM Result Value Ref Range Glucose, POC 93 70 - 199 mg/dL Vancomycin, trough Collection Time: 09/13/19 2:05 PM Result Value Ref Range Vancomycin, trough 4.5 (L) 10.0 - 20.9 mcg/mL POCT glucose Collection Time: 09/13/19 3:19 PM Result Value Ref Range Glucose, POC 110 70 - 199 mg/dL Imaging review: CXR (09/12/19): - thickening along R horizontal fissure and unchanged focal consolidation in RUL consistent with pneumonia. Assessment/Plan Active Problems: Pneumonia Hypotension ICU SYSTEMS ASSESSMENT: NEURO: #Acute Pain: - APAP 650mg q4h PRN ? PULM: Has home duobens but does not use regularly. Saturates well on RA. Wheezing on PE. - CXR 09/11: patchy infiltrate adjacent to the fissure suggesting developing PNA - Continue Duonebs q6h scheduled, q4h PRN - Continue abx as below ?? GI: Diet: Adult regular Bowel regimen: no PUD PPx: Home famotidine 20mg daily ?? RENAL: Fluid balance goal: Auto-diuresis Maintenance IV fluids: no Electrolyte repletion orders: PRN UOP: 1.7L ?? Lab Results Component Value Date ?? CREATININE 0.83 09/11/2019 ?? HEME: #Anemia - Hgb 14->11.6 today - No s/s bleeding, no indication for transfusion, continue to monitor closely Lab Results Component Value Date ?? HGB 11.6 (L) 09/12/2019 ?? ENDO: - ICU SSI ?? ID: #Leukocytosis Lab Results Component Value Date ?? WBC 34.8 (H) 09/12/2019 - WBC 42.5 -> 34.8 -> 25.7 - Continue antibiotics: vanc (09/11-), cefepime (09/11-), azithromycin (09/11-) - Cultures: UA neg, Bcx x2 09/11 NGTD, RVP neg - Vanc q24h -> q12h ?? MSK: - No known issue - PT/OT Intensive Care Unit Standards of Care: Restraints: None PUD prophylaxis: Home famotidine 20 mg daily DVT prophylaxis: SCDs, lovenox 40mg daily Vascular access: L PIV x1 Code status: Full Dispo: ICU w/ TTF tomorrow pending ongoing clinical stability Scott Chavez MD Neurosurgery, PGY-1 7:10 PM 09/13/19 * Natalya Dumont DPT - 09/13/2019 3:10 PM CDT Physical Therapy As supervising physical therapist, I agree with and cosign all documentation provided in the care plan, handoff, and education on this date by physical therapy student, Ángel Mccain. Natalya Dumont DPT 3:10 PM 09/13/19 * Faby Morrissey [facility] - 09/13/2019 10:06 AM CDT Patient profile has been reviewed by a clinical pharmacy coordinator on 09/13/2019. Case reviewed onrounds with multidisciplinary team or outside of rounds with prescribers as necessary. Additional significant interventions or issues related to ongoing monitoring are listed below as appropriate. Initiate bowel regimen with senna/colace. Add 5 day antibiotic stop date. Faby Morrissey [facility], Pharm.D. * Ramez Lopez MD PhD - 09/12/2019 10:54 PM CDT Surgical ICU Daily Progress Team: RED PM Subjective Patient is a 78 y.o. female admitted on 09/11/2019 12:43 PM with chief complaint of PNA and hypotension minimally responsive to fluid resuscitation. Interval History: - Patient admitted to ICU in s/o hypotension w/ minimal response to 4L IVF for close BP monitoring,stabilization, and further management. No supplemental O2 requirement, saturating well on RA. - Stopped trending lactate - Discontinued mckeon - Started home famotidine 20mg daily - RVP negative - troponin-I rising <0.03 -> 0.03 -> 0.07, will continue to trend Objective Physical Exam: Gen: AAOx3, no acute distress, not diaphoretic, appears stated age HEENT: NC/AT, PERRL, neck supple, no tracheal deviation CV: RRR, no m/r/g Pulm: tachypneic, diminished breath sounds bilaterally, wheezing in b/l lung murphy Abd: BS+, soft, non-tender, non-distended Ext: b/l LE no edema, rash, or lesions Lines: L PIV x1 Vital signs for last 24 hours: Temp: [36.3 ??C (97.3 ??F)-36.8 ??C (98.2 ??F)] 36.5 ??C (97.7 ??F) Pulse: [68-101] 84 BP: (70-136)/(36-91) 122/62 Resp: [15-34] 23 SpO2: [96 %-100 %] 100 % Hemodynamics: MAP (mmHg): [43-97] 80 Pulmonary Support: O2 Therapy: None (Room air) Intake/Output: Intake/Output Summary (Last 24 hours) at 09/13/2019 0142 Last data filed at 09/13/2019 0000 Gross per 24 hour Intake 2400 ml Output 3460 ml Net -1060 ml Lab/Radiology/Diagnostic Review: Laboratory review: Lab results in the last 24 hours: Recent Results (from the past 24 hour(s)) Troponin I Collection Time: 09/12/19 5:40 AM Result Value Ref Range Troponin I 0.03 0.00 - 0.03 ng/mL Pro B-type natriuretic peptide Collection Time: 09/12/19 5:40 AM Result Value Ref Range NT-proBNP 1,003 (H) <=450 pg/mL POCT lactate Collection Time: 09/12/19 5:42 AM Result Value Ref Range Lactate POC i-STAT 2.2 0.7 - 2.2 mmol/L CBC with auto differential Collection Time: 09/12/19 5:44 AM Result Value Ref Range WBC 34.8 (H) 3.8 - 9.9 K/cumm Hgb 11.6 (L) 11.9 - 15.5 g/dL Hct 36.4 35.6 - 45.5 % Plt 221 150 - 400 K/cumm MPV 11.4 9.1 - 12.3 fL RBC 4.14 3.90 - 5.20 M/cumm MCV 87.9 81.3 - 96.4 fL MCH 28.0 27.1 - 33.3 pg MCHC 31.9 (L) 32.3 - 35.7 g/dL RDW CV 14.3 11.1 - 14.9 % RDW SD 46.2 35.7 - 48.1 fL NRBC abs 0.00 0.00 - 0.01 K/cumm Protime-INR Collection Time: 09/12/19 5:44 AM Result Value Ref Range PT 16.8 (H) 8.6 - 13.0 sec INR 1.54 (H) 0.80 - 1.20 Manual Differential Collection Time: 09/12/19 5:44 AM Result Value Ref Range Differential Manual Cells Counted 114 Neutrophil abs 25.9 (H) 1.7 - 6.5 K/cumm Imm gran abs 2.1 (H) 0.0 - 0.1 K/cumm Lymphocyte abs 4.0 (H) 0.8 - 3.3 K/cumm Monocyte abs 2.4 (H) 0.2 - 0.8 K/cumm Basophil abs 0.3 (H) 0.0 - 0.1 K/cumm Neutrophil pct 74.6 % Lymphocyte pct 11.4 % Monocyte pct 7.0 % Basophil pct 0.9 % Neutrophilic metamyelocytes 6.1 (H) 0.0 - 0.0 % ECG 12 lead Collection Time: 09/12/19 5:58 AM Result Value Ref Range Ventricular Rate EKG/Min 84 BPM Atrial Rate 84 BPM SC-Interval (MSEC) 100 ms QRS-Interval (MSEC) 120 ms QT-Interval (MSEC) 396 ms QTc 467 ms P [place] 67 degrees R [place] -30 degrees T [place] 3 degrees Diagnosis Sinus rhythm with short SC Possible Left atrial enlargement Left axis deviation Incomplete left bundle branch block Abnormal ECG No previous ECGs available Confirmed by MONICA VIERA M.D ([id number]) on 09/12/2019 2:18:13 PM POCT glucose Collection Time: 09/12/19 7:10 AM Result Value Ref Range Glucose, POC 108 70 - 199 mg/dL POCT glucose Collection Time: 09/12/19 11:27 AM Result Value Ref Range Glucose, POC 140 70 - 199 mg/dL POCT glucose Collection Time: 09/12/19 3:45 PM Result Value Ref Range Glucose, POC 102 70 - 199 mg/dL CBC with auto differential Collection Time: 09/12/19 9:11 PM Result Value Ref Range WBC 25.7 (H) 3.8 - 9.9 K/cumm Hgb 11.5 (L) 11.9 - 15.5 g/dL Hct 35.9 35.6 - 45.5 % Plt 218 150 - 400 K/cumm MPV 11.5 9.1 - 12.3 fL RBC 4.20 3.90 - 5.20 M/cumm MCV 85.5 81.3 - 96.4 fL MCH 27.4 27.1 - 33.3 pg MCHC 32.0 (L) 32.3 - 35.7 g/dL RDW CV 14.5 11.1 - 14.9 % RDW SD 45.1 35.7 - 48.1 fL NRBC abs 0.00 0.00 - 0.01 K/cumm Phosphorus Collection Time: 09/12/19 9:11 PM Result Value Ref Range Phosphorus, pl 2.4 2.3 - 4.5 mg/dL Magnesium Collection Time: 09/12/19 9:11 PM Result Value Ref Range Magnesium 1.6 1.4 - 2.5 mg/dL Basic metabolic panel Collection Time: 09/12/19 9:11 PM Result Value Ref Range Sodium 142 135 - 145 mmol/L Potassium, pl 3.9 3.3 - 4.9 mmol/L Chloride 110 97 - 110 mmol/L CO2 21 (L) 22 - 32 mmol/L Anion gap 11 2 - 15 mmol/L BUN 14 8 - 25 mg/dL Creatinine 0.82 0.60 - 1.10 mg/dL Glucose 96 70 - 199 mg/dL Calcium 8.7 8.5 - 10.3 mg/dL Manual Differential Collection Time: 09/12/19 9:11 PM Result Value Ref Range Differential Manual Cells Counted 113 Neutrophil abs 21.6 (H) 1.7 - 6.5 K/cumm Imm gran abs 0.0 0.0 - 0.1 K/cumm Lymphocyte abs 3.0 0.8 - 3.3 K/cumm Monocyte abs 0.7 0.2 - 0.8 K/cumm Eosinophil abs 0.5 0.0 - 0.5 K/cumm Neutrophil pct 84.0 % Lymphocyte pct 10.6 % Monocyte pct 2.7 % Eosinophil pct 1.8 % Variant lymphs 0.9 (H) 0.0 - 0.0 % Troponin I Collection Time: 09/12/19 9:11 PM Result Value Ref Range Troponin I 0.07 (H) 0.00 - 0.03 ng/mL POCT glucose Collection Time: 09/12/19 11:40 PM Result Value Ref Range Glucose, POC 101 70 - 199 mg/dL Imaging review: CXR (09/12/19): - thickening along R horizontal fissure and unchanged focal consolidation in RUL consistent with pneumonia. Assessment/Plan Active Problems: Pneumonia Hypotension ICU SYSTEMS ASSESSMENT: NEURO: #Acute Pain: - APAP 650mg q4h PRN ?? #Agitation requiring sedation protocol Not applicable ?? CV: #Shock BP dropped overnight on the floor 70-85s/35-55s. S/p 4L fluids with BPs minimally responsive to fluid resuscitation. Upon arrival at ICU, SBP has been around 100s/60s. MAP 74. No pressors indicated at this point. ?? #Elevated Lactate Level lacate 2.4 -> 1.1 -> 2.2. Stopped trending. ?? #Elevated Troponin C/o constant pleuritic CP localized to R midupper chest since yesterday. Initial trop negative, nowtrending up 0.03 -> 0.07. - Trend troponin until peak - EKG ?? PULM: Has home duobens but does not use regularly. Saturates well on RA. Wheezing on PE. - CXR 09/11: patchy infiltrate adjacent to the fissure suggesting developing PNA - Continue Duonebs q6h scheduled, q4h PRN - Continue abx as below ?? GI: Diet: Adult regular Bowel regimen: no PUD PPx: Home famotidine 20mg daily ?? RENAL: Fluid balance goal: Auto-diuresis Maintenance IV fluids: no Electrolyte repletion orders: PRN UOP: 1.67L ?? Lab Results Component Value Date ?? CREATININE 0.83 09/11/2019 ?? HEME: #Anemia - Hgb 14->11.6 today - No s/s bleeding, no indication for transfusion, continue to monitor closely Lab Results Component Value Date ?? HGB 11.6 (L) 09/12/2019 ?? ENDO: - ICU SSI ?? ID: #Leukocytosis Lab Results Component Value Date ?? WBC 34.8 (H) 09/12/2019 - WBC 42.5 -> 34.8 - s/p Ceftriaxone 2g 1 in the ED - Continue antibiotics: vanc (09/11-), cefepime (09/11-), azithromycin (09/11-) - Cultures: UA neg, Bcx x2 this AM NGTD, RVP neg - f/u with Vanc Trough at 3PM ?? MSK: - No known issue - PT/OT Intensive Care Unit Standards of Care: Restraints: None PUD prophylaxis: Home famotidine 20 mg daily DVT prophylaxis: SCDs, lovenox 40mg daily Vascular access: L PIV x1 Code status: Full Dispo: ICU w/ TTF tomorrow pending ongoing clinical stability Ramez Lopez MD PhD Neurosurgery, PGY-1 1:42 AM 09/13/19 Cosigned by Temitope Rios MD at 09/13/2019 9:19 PM CDT * Alexandrea Ugalde RN - 09/12/2019 2:37 PM CDT 09/12/19 1436 Information Information Obtained From Patient Referral Data Referral Reason Discharge Planning Prior to Admission Primary Caregiver Self Support System Family members;Children Support system contact info (name, phone, availablity) mother in law Stephanie Arvizu [phone], daughter Khadijah [phone] Durable Medical Equipment Other (Comment);Wheelchair (nebulizer ) Living Arrangements Alone Type of Residence Private residence Steps in home? Yes, Outside of home Number of steps outside: 3 steps Potential Discharge Needs Anticipated discharge level of care Private residence Patient expects to be discharged to: Private residence Impression: h/o COPD/asthma, HTN, pneumonia/sepsis presenting with cough and dyspnea Additional Information/Options Discussed: Explained role and purpose of CM. Demographics verified with face sheet. PCP verified as Roxana Graham. Plan Includes: Will await therapy evals for dispo recommendations. Patient was independent prior toadmission, denies any active home care prior to admission. Patient has family for support and discharge transportation. Case management will continue to follow for discharge planning and referrals asneeded. Insurance verified as: [facility] Medicare Admit Source: non health care facility point of origin Problem/Goal: Patient awaits further evaluation for medical discharge needs and home needs. CM willassist patient with home needs as indicated and identified for safe discharge planning * Faby Morrissey, [facility] - 09/12/2019 10:31 AM CDT Patient profile has been reviewed by a clinical pharmacy coordinator on 09/12/2019. Case reviewed onrounds with multidisciplinary team or outside of rounds with prescribers as necessary. Additional significant interventions or issues related to ongoing monitoring are listed below as appropriate. Initiate low dose sliding scale. Please check vancomycin trough on 09/13 at 1500 prior to the 3rd dose. Goal 15-20. Initiate famotidine 20 mg daily for stress ulcer prophylaxis for INR > 1.5. Faby Morrissey [facility], Pharm.D. documented in this encounter H&P Notes * Priti Gross MD - 09/14/2019 6:14 PM CDT GENERAL MEDICINE ADMISSION HISTORY AND PHYSICAL Date: 09/14/2019 CARE TEAM Patient: Ni Neri Primary Care Physician: TIFF Flores Room: [id number] Attending Physician: Ann Antony MD SUBJECTIVE CHIEF COMPLAINT: Chief Complaint Patient presents with ??? Chest Pain HISTORY OF PRESENT ILLNESS: Ni Neri is a 78-year-old female with h/o COPD and HTN who presented with SOB x 1-2 days. ?? 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 About 1 day before admission on 09/11, she had f/c, productive cough of yellow/green sputum. Endorsed pleuritic chest pain, diaphoresis, and increased forgetfulness. ?? She was recently hospitalized for PNA w/ sepsis at an OSH in [place] (05/2019). She was also treated by her PCP for a COPD exacerbation with prednisone and azithromycin about two weeks prior to admission.? On initial presentation to the ED, she was febrile (101.5) and tachycardiac (114) with cxr with RMLinfiltrate c/f pneumonia. WBC 42 with lactate 2.4. She was admitted to medicine for HCAP and started on vanc/cefe/azithro. On the floor, she became hypotensive overnight with BP 73/63->70/47->81/37. Lactate at 2.2. She received 4L fluids with minimal response on BP. She was transferred to ICUfor close monitoring of BP, stabilization and further management. She has not needed supplemental oxygen throughout admission and saturates well on room air. Her BP remained stable while in the ICU and she was transferred back to the floor on 09/14. Vancomycin was d/c'd 09/14 as low concern for MRSA and troughs were persistently subtherapeutic. On arrival to the floor, patient is asymptomatic, afebrile and HDS. WBC continues to downtrend (25->14.7). Continued on cefe/azithro. Patient says she would like to be referred to a oncologist to follow-up her COPD and a lung nodule found on imaging when she was hospitalized in [place] in 05/2019. She followed up with her PCP about this her ordered a repeat CT in 06/2019 which showed scattered pulmonary nodules measuring 5mm or less, rec optional chest CT for follow-up given underlying COPD. She already has an appointment with Pulmonology on 12/08/19 for PFTs but says she is worried that this is too far away. Her son has lung cancer that was not detected till late and her family doesn't want the same for her. She is a current smoker, 44pack-year history but has cut down since her hospitalization in May. She has chronic back pain 2/2 arthritis that she receives injections for in [place]. She had back surgery in the past and was talking with her neurosurgeon about additional surgery but deferred for now. She hasn't had an injection since before her in May. 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 She endorses being chronically more fatigued since then and will get more winded with stairs. Denies orthopnea or PND. Per PCP notes in [place], recent TTE with significantly reduced EF but still ok. Review of Systems As per HPI, otherwise negative. PAST MEDICAL HISTORY Past Medical History: Diagnosis Date ??? COPD (chronic obstructive pulmonary disease) (CMS/HCC) ??? Head and neck cancer (CMS/HCC) ??? HTN (hypertension) ??? Lung nodule PAST SURGICAL HISTORY Past Surgical History: Procedure Laterality Date ??? CHOLECYSTECTOMY ??? TOTAL KNEE ARTHROPLASTY Bilateral ALLERGIES AND DRUG REACTIONS Allergies Allergen Reactions ??? Codeine Itching ??? Hydromorphone Stomach upset ??? Morphine Stomach upset ??? Sulfa (Sulfonamide Antibiotics) Stomach upset HOME MEDICATIONS Prior to Admission medications Medication Sig Start Date End Date Taking? Authorizing Provider albuterol HFA (PROAIR HFA) 90 mcg/actuation inhaler Take 2 puffs by mouth 4 (four) times a day Yes Historical Provider, losartan-hydroCHLOROthiazide (HYZAAR) 50-12.5 mg per tablet Take 1 tablet by mouth daily Yes Historical Provider, CURRENT FACILITY-ADMINISTERED MEDICATIONS Scheduled meds: albuterol, 2.5 mg, nebulization, QID (RT) And ipratropium, 0.5 mg, nebulization, QID (RT) azithromycin, 250 mg, oral, Daily cefepime, 2,000 mg, intravenous, Q12H TANYA enoxaparin, 40 mg, subcutaneous, Daily-2100 famotidine, 20 mg, oral, Daily losartan, 50 mg, oral, Daily senna-docusate, 1 tablet, oral, BID sodium chloride 0.9%, 0.5-20 mL, intra-catheter, Q8H TANYA Continuous IV meds: [COMPLETED] acetaminophen acetaminophen [COMPLETED] acetaminophen albuterol And ipratropium albuterol And ipratropium azithromycin cefepime enoxaparin famotidine [COMPLETED] ibuprofen [COMPLETED] Lactated Ringer's [COMPLETED] Lactated Ringer's, Last Rate: 1,000 mL (09/12/19 0608) losartan [COMPLETED] magnesium sulfate [COMPLETED] potassium chloride, Last Rate: 40 mEq (09/14/19 0137) ramelteon senna-docusate [COMPLETED] sodium chloride 0.9%, Last Rate: Stopped (09/11/19 1652) [COMPLETED] sodium chloride 0.9%, Last Rate: 1,000 mL (09/11/19 1801) sodium chloride 0.9% sodium chloride 0.9% [COMPLETED] vancomycin, Last Rate: Stopped (09/11/19 1706) [DISCONTINUED] acetaminophen [DISCONTINUED] albuterol [DISCONTINUED] albuterol [DISCONTINUED] azithromycin, Last Rate: 500 mg (09/12/19 1012) [DISCONTINUED] cefepime, Last Rate: 2,000 mg (09/13/19 0807) [DISCONTINUED] cefepime, Last Rate: 2,000 mg (09/14/19 0818) [DISCONTINUED] cefTRIAXone, Last Rate: Stopped (09/11/19 1409) [DISCONTINUED] dextrose [DISCONTINUED] dextrose [DISCONTINUED] glucagon [DISCONTINUED] insulin lispro [DISCONTINUED] ipratropium [DISCONTINUED] ipratropium [DISCONTINUED] nicotine polacrilex [DISCONTINUED] vancomycin [DISCONTINUED] vancomycin [DISCONTINUED] vancomycin [DISCONTINUED] vancomycin PRN meds: ??? acetaminophen ??? albuterol AND ipratropium ??? ramelteon ??? sodium chloride 0.9% FAMILY HISTORY History reviewed. No pertinent family history. SOCIAL AND FUNCTIONAL HISTORY Social History Tobacco Use ??? Smoking status: Not on file Substance Use Topics ??? Alcohol use: Not on file ??? Drug use: Not on file OBJECTIVE VITALS Vitals: 09/14/19 1400 09/14/19 1440 09/14/19 1500 09/14/19 1720 BP: 130/77 138/68 150/77 BP Location: Left arm Left arm Patient Position: Sitting Sitting Pulse: 72 66 67 70 Resp: 18 16 17 18 Temp: 36.8 ??C (98.2 ??F) 36.6 ??C (97.9 ??F) TempSrc: Oral SpO2: 100% 99% 99% 100% Weight: Height: PHYSICAL EXAM Physical Exam General: pleasant elderly female sitting in bed in NAD HENT: NCAT. MMM. OP clear. Uvula midline. Wearing dentures. Eyes: PERRL. EOMI. Conjunctivae normal. Neck: Supple, no LAD. No thyromegaly. CV: RRR. Nml S1, S2. No m/r/g. No JVD. No peripheral edema. Intact distal pulses. Resp: CTAB. No wheezes/rhonchi/rales. NLB on RA. GI: Soft, NTND. No rebound or guarding. +BS. No HSM. MSK: No joint deformities, swelling. Heme: No bruising or petechiae. Neuro: A&Ox3. Deputy Editor In Chief II-XII grossly intact. No gross focal deficits. Psych: Appropriate mood/affect. Ext: WWP. Multiple age spots but no rash or cyanosis. LABS CBC: Recent Labs Lab Units 09/13/19 2212 WBC K/cumm 14.7* HEMOGLOBIN g/dL 10.9* HEMATOCRIT % 34.5* PLATELETS K/cumm 246 BMP / Mag / Phos: Recent Labs Lab Units 09/14/19 0730 09/13/19 2212 09/11/19 1332 SODIUM mmol/L -- -- 142 < > 137 POTASSIUM PLASMA mmol/L -- -- 3.4 < > 4.0 CHLORIDE mmol/L -- -- 109 < > 103 CO2 mmol/L -- -- 23 < > 22 ANIONGAP mmol/L -- -- 10 < > 12 GLUCOSE mg/dL -- -- 120 < > 135 POC GLUCOSE MONITOR mg/dL 104 < > -- < > -- BUN SERUM mg/dL -- -- 10 < > 15 CREATININE mg/dL -- -- 0.90 < > 0.83 CALCIUM mg/dL -- -- 8.7 < > 9.5 ALBUMIN g/dL -- -- -- -- 4.1 ALK PHOS Units/L -- -- -- -- 84 ALT Units/L -- -- -- -- 15 AST Units/L -- -- -- -- 19 BILIRUBIN TOTAL mg/dL -- -- -- -- 0.5 < > = values in this interval not displayed. Coags: Recent Labs Lab Units 09/12/19 0544 INR 1.54* PROTIME (PT) sec 16.8* Cardiac Biomarkers: Lab Results Component Value Date TROPONINI 0.06 (H) 09/13/2019 Urine Studies: Recent Labs Lab Units 09/11/19 1634 COLOR U Yellow CLARITY U Clear SPEC GRAV U 1.014 PH, URINE 6 PROTEIN UR QL Negative GLUCOSE URQL Negative KETONES UR Negative BLOOD UR Negative NITRITE UR Negative LEUKOCYTE ESTERASE UR Negative ASSESSMENT AND PLAN Ni Neri is a 78 y.o. with h/o HTN, COPD who presents as transfer from the SICU after admission for HCAP. Respiratory Hospital-acquired pneumonia On presentation, febrile, WBC 42, RUL infiltrate [...] HDS and satting well on RA. - cont cefe/azithro for now - transition to PO antibiotics tomorrow - PT/OT rec SNF but consider home with HH PT/OT if patient refuses SNF -> reassess prior to discharge COPD (chronic obstructive pulmonary disease) ([facility]) Chart history of COPD. No PFTs in our system. On albuterol PRN at home. Recently treated by her PCPfor a COPD exacerbation with prednisone and azithromycin about two weeks prior to admission. She has approximately one hospitalization per year for COPD exacerbation. She has never been intubated. She had a prior hospitalization for pneumonia in 2013. - duonebs q4hrs - azithro as elsewhere for PNA - has appt with pulmonology in 11/2019 for PFTs Other Elevated troponin Resolved Trop 0.07 on admission -> 0.06. No ST changes on EKG. Likely demand in setting of PNA. - Access: PIV - Diet: regular - VTE: Heparin SubQ 5000 units TID - CODE STATUS: Full Code - Dispo: MELINA 09/15, PT/OT rec SNF but patient will likely decline so consider HH with PT/OT -> will reassess prior to discharge Priti Gross MD PGY-1, Internal Medicine [phone] Cosigned by Ann Antony MD at 09/15/2019 2:06 PM CDT Associated attestation - Ann Antony MD - 09/15/2019 2:06 PM CDT I have seen and examined the patient on 09/15/19. I agree with the findings and plan of care as documented in the resident's/fellow's note. * Scott Chavez MD - 09/12/2019 6:49 AM CDT SICU History and Physical Team: Red AM Subjective Patient is a 78 y.o. female presented to the ICU for PNA and hypotension minimally responsive to fluid resuscitation. Chief Complaint Patient presents with ??? Chest Pain . HPI: Ni Neri is a 78-year-old female with h/o COPD and HTN who presents with SOB x 1-2 days. She had increased fatigue and malaise over the past few days. About 1 day before admission on 09/11, she began feeling febrile with chills and increased cough intermittently productive of yellow/greenish suptum. Also reports pleuritic chest pain, diapheorsis, and increased forgetfulness. Endorses rhinorrhea which has chronic and denies recent sick contacts, wheezing. She was recently hospitalized for PNA w/ sepsis at an OSH in [place] (05/2019). She was also treated by her PCP for a COPD exacerbation with prednisone and azithromycin about two weeks prior to admission. On initial presentation to the ED, she was febrile (101.5) and tachycardiac (114) with cxr with RMLinfiltrate c/f pneumonia. WBC 42 with lactate 2.4. s/p CTX/azith and 2L IVF. On the floor, she became hypotensive overnight with BP 73/63->70/47->81/37. Lactate at 2.2. She received 4L fluids with minimal response on BP. She is transferred to ICU for close monitoring ofBP, stabilization and further management. She has not needed supplemental oxygen and saturates wellon room air. Vitals on arriving ICU: HR 80's SR, BP 106/62. POC lactate 2.5. PMH: COPD, Depression, HTN, H/o gastric ulcer, osteoarthritis, spinal stenosis of lumbar region, vasovagal syncope No past surgical history on file. Medications Prior to Admission Medication Sig Dispense Refill Last Dose ??? albuterol HFA (PROAIR HFA) 90 mcg/actuation inhaler Take 2 puffs by mouth 4 (four) times a day Past Month at Unknown time ??? losartan-hydroCHLOROthiazide (HYZAAR) 50-12.5 mg per tablet Take 1 tablet by mouth daily Past Week at Unknown time Allergies Allergen Reactions ??? Codeine Itching ??? Hydromorphone Stomach upset ??? Morphine Stomach upset ??? Sulfa (Sulfonamide Antibiotics) Stomach upset Social History Tobacco Use ??? Smoking status: Not on file Substance Use Topics ??? Alcohol use: Not on file History reviewed. No pertinent family history. Review of Systems: All other systems were reviewed and are negative except as noted above in the HPI. Vitals: Most Recent : Vitals: 09/12/19 1200 BP: 98/69 Pulse: 96 Resp: 27 Temp: 36.8 ??C (98.2 ??F) SpO2: 97% Hemodynamics: MAP (mmHg): [43-107] 71 Pulmonary Support: O2 Therapy: None (Room air) Intake/Output: Intake/Output Summary (Last 24 hours) at 09/12/2019 1249 Last data filed at 09/12/2019 1215 Gross per 24 hour Intake 4330 ml Output 2525 ml Net 1805 ml Physical Exam Vitals signs and nursing note reviewed. Constitutional: Appearance: She is well-developed. She is obese. She is not diaphoretic. HENT: Head: Normocephalic and atraumatic. Eyes: Pupils: Pupils are equal, round, and reactive to light. Neck: Musculoskeletal: Neck supple. Trachea: No tracheal deviation. Cardiovascular: Rate and Rhythm: Normal rate and regular rhythm. Heart sounds: Normal heart sounds. Pulmonary: Effort: Tachypnea present. Breath sounds: Wheezing present. Comments: Coarse breath sounds b/l Chest: Chest wall: Tenderness present. Abdominal: General: Bowel sounds are normal. There is no abdominal bruit. Palpations: Abdomen is soft. Tenderness: There is no tenderness. Musculoskeletal: Right lower leg: No edema. Left lower leg: Edema present. Skin: Capillary Refill: Capillary refill takes less than 2 seconds. Coloration: Skin is not cyanotic. Comments: All extremities cold to touch Neurological: Mental Status: She is alert and oriented to person, place, and time. Psychiatric: Mood and Affect: Mood is anxious. Lab/Radiology/Diagnostic Review: Laboratory review: Lab results in the last 24 hours: Recent Results (from the past 24 hour(s)) CBC with auto differential Collection Time: 09/11/19 1:32 PM Result Value Ref Range WBC 42.5 (H) 3.8 - 9.9 K/cumm Hgb 14.0 11.9 - 15.5 g/dL Hct 44.0 35.6 - 45.5 % Plt 267 150 - 400 K/cumm MPV 10.7 9.1 - 12.3 fL RBC 5.17 3.90 - 5.20 M/cumm MCV 85.1 81.3 - 96.4 fL MCH 27.1 27.1 - 33.3 pg MCHC 31.8 (L) 32.3 - 35.7 g/dL RDW CV 14.1 11.1 - 14.9 % RDW SD 43.8 35.7 - 48.1 fL NRBC abs 0.00 0.00 - 0.01 K/cumm Comprehensive metabolic panel Collection Time: 09/11/19 1:32 PM Result Value Ref Range Sodium 137 135 - 145 mmol/L Potassium, pl 4.0 3.3 - 4.9 mmol/L Chloride 103 97 - 110 mmol/L CO2 22 22 - 32 mmol/L Anion gap 12 2 - 15 mmol/L BUN 15 8 - 25 mg/dL Creatinine 0.83 0.60 - 1.10 mg/dL Glucose 135 70 - 199 mg/dL Calcium 9.5 8.5 - 10.3 mg/dL Bilirubin, total 0.5 0.1 - 1.2 mg/dL Protein, pl 8.0 6.5 - 8.5 g/dL Albumin 4.1 3.5 - 5.0 g/dL Alk phos 84 40 - 130 Units/L ALT 15 7 - 45 Units/L AST 19 10 - 45 Units/L Troponin I Collection Time: 09/11/19 1:32 PM Result Value Ref Range Troponin I <0.03 0.00 - 0.03 ng/mL Influenza A/B and RSV PCR Nasopharyngeal Collection Time: 09/11/19 1:32 PM Result Value Ref Range Influenza A RNA Not Detected Not Detected Influenza B RNA Not Detected Not Detected RSV RNA Not Detected Not Detected Differential, auto Collection Time: 09/11/19 1:32 PM Result Value Ref Range Neutrophil abs 36.6 (H) 1.7 - 6.5 K/cumm Imm gran abs 1.2 (H) 0.0 - 0.1 K/cumm Lymphocyte abs 1.8 0.8 - 3.3 K/cumm Monocyte abs 2.7 (H) 0.2 - 0.8 K/cumm Eosinophil abs 0.0 0.0 - 0.5 K/cumm Basophil abs 0.1 0.0 - 0.1 K/cumm Neutrophil pct 86.3 % Imm gran pct 2.7 % Lymphocyte pct 4.3 % Monocyte pct 6.4 % Eosinophil pct 0.0 % Basophil pct 0.3 % Lactate dehydrogenase (LD) Collection Time: 09/11/19 1:32 PM Result Value Ref Range Lactate dehydrogenase (LDH) 413 (H) 100 - 250 Units/L Blood culture Blood Collection Time: 09/11/19 1:42 PM Result Value Ref Range Report Preliminary Report: No growth to date. Blood culture Blood Collection Time: 09/11/19 1:42 PM Result Value Ref Range Report Preliminary Report: No growth to date. POCT lactate Collection Time: 09/11/19 2:10 PM Result Value Ref Range Lactate POC i-STAT 2.4 (H) 0.7 - 2.2 mmol/L POCT lactate Collection Time: 09/11/19 3:27 PM Result Value Ref Range Lactate POC i-STAT 1.1 0.7 - 2.2 mmol/L Urinalysis reflex to microscopic and culture Urine Collection Time: 09/11/19 4:34 PM Result Value Ref Range Color, ur Yellow Yellow Clarity, ur Clear Clear Specific gravity, ur 1.014 1.010 - 1.025 pH, urine 6 Protein, ur ql Negative Negative Glucose, ur ql Negative Negative Ketones, ur Negative Negative Bilirubin, ur Negative Negative Blood, ur Negative Negative Urobilinogen, ur <2.0 <2.0 mg/dL Nitrite, ur Negative Negative Leukocyte esterase, ur Negative Negative POCT glucose Collection Time: 09/11/19 9:29 PM Result Value Ref Range Glucose, POC 115 70 - 199 mg/dL Troponin I Collection Time: 09/12/19 5:40 AM Result Value Ref Range Troponin I 0.03 0.00 - 0.03 ng/mL Pro B-type natriuretic peptide Collection Time: 09/12/19 5:40 AM Result Value Ref Range NT-proBNP 1,003 (H) <=450 pg/mL POCT lactate Collection Time: 09/12/19 5:42 AM Result Value Ref Range Lactate POC i-STAT 2.2 0.7 - 2.2 mmol/L CBC with auto differential Collection Time: 09/12/19 5:44 AM Result Value Ref Range WBC 34.8 (H) 3.8 - 9.9 K/cumm Hgb 11.6 (L) 11.9 - 15.5 g/dL Hct 36.4 35.6 - 45.5 % Plt 221 150 - 400 K/cumm MPV 11.4 9.1 - 12.3 fL RBC 4.14 3.90 - 5.20 M/cumm MCV 87.9 81.3 - 96.4 fL MCH 28.0 27.1 - 33.3 pg MCHC 31.9 (L) 32.3 - 35.7 g/dL RDW CV 14.3 11.1 - 14.9 % RDW SD 46.2 35.7 - 48.1 fL NRBC abs 0.00 0.00 - 0.01 K/cumm Protime-INR Collection Time: 09/12/19 5:44 AM Result Value Ref Range PT 16.8 (H) 8.6 - 13.0 sec INR 1.54 (H) 0.80 - 1.20 Manual Differential Collection Time: 09/12/19 5:44 AM Result Value Ref Range Differential Manual Cells Counted 114 Neutrophil abs 25.9 (H) 1.7 - 6.5 K/cumm Imm gran abs 2.1 (H) 0.0 - 0.1 K/cumm Lymphocyte abs 4.0 (H) 0.8 - 3.3 K/cumm Monocyte abs 2.4 (H) 0.2 - 0.8 K/cumm Basophil abs 0.3 (H) 0.0 - 0.1 K/cumm Neutrophil pct 74.6 % Lymphocyte pct 11.4 % Monocyte pct 7.0 % Basophil pct 0.9 % Neutrophilic metamyelocytes 6.1 (H) 0.0 - 0.0 % POCT glucose Collection Time: 09/12/19 7:10 AM Result Value Ref Range Glucose, POC 108 70 - 199 mg/dL POCT glucose Collection Time: 09/12/19 11:27 AM Result Value Ref Range Glucose, POC 140 70 - 199 mg/dL Assessment /Plan Active Problems: Pneumonia Hypotension Plan of Care: NEURO: #Acute Pain: - APAP 650mg q4h PRN #Agitation requiring sedation protocol Not applicable CV: #Shock BP dropped overnight on the floor 70-85s/35-55s. S/p 4L fluids with BPs minimally responsive to fluid resuscitation. Upon arrival at ICU, SBP has been around 100s/60s. MAP 74. No pressors indicated at this point. #Elevated Lactate Level lacate 2.4 -> 1.1 -> 2.2. Stopped trending. #Elevated Troponin C/o constant pleuritic CP localized to R midupper chest since yesterday. Initial trop negative, recheck at 0.03. - Recheck troponin - EKG PULM: Has home duobens but does not use regularly. Saturates well on RA. Wheezing on PE. - CXR 09/11: patchy infiltrate adjacent to the fissure suggesting developing PNA - Continue Duonebs q6h scheduled, q4h PRN - Continue abx as below GI: Diet: Adult regular Bowel regimen: no PUD PPx: Home famotidine 20mg daily RENAL: Fluid balance goal: Auto-diuresis Maintenance IV fluids: no Electrolyte repletion orders: PRN UOP: 1.67L Lab Results Component Value Date CREATININE 0.83 09/11/2019 HEME: #Anemia - Hgb 14->11.6 today - No s/s bleeding, no indication for transfusion, continue to monitor closely Lab Results Component Value Date HGB 11.6 (L) 09/12/2019 ENDO: ICU SSI ID: #[id number] Lab Results Component Value Date WBC 34.8 (H) 09/12/2019 - WBC 42.5 -> 34.8 - s/p Ceftriaxone 2g 1 in the ED - Continue antibiotics: vanc (09/11-), cefepime (09/11-), azithromycin (09/11-) - Cultures: UA neg, Bcx x2 this AM NGTD, RVP neg - f/u with [facility] at 3PM MSK: No known issue TDLA: ETT - none PIV - 1 L PIV Sally -none Mckeon - discontinued Intensive Care Unit Standards of Care: Restraints: none DVT prophylaxis: Lovenox 40mg Vascular access: 1 L PIV Scott Chavez MD 09/12/19 12:49 PM Cosigned by Taras Morrell MD at 09/12/2019 6:19 PM CDT * Mickey Hoyt MD - 09/11/2019 3:56 PM CDT History and Physical Internal Medicine Name: Ni Neri Today: September 11, 2019 : 1940 Age: 78 y.o. female Subjective Chief Complaint: Shortness of breath HPI: Patient is a 78-year-old female with PMH significant for COPD, HTN, and recent hospitalization for pneumonia (05/2019) who presents with 1-2 day history of shortness of breath. The patient was in her usual state of health until approximately 2-3 days ago when she noticed worsening fatigue and malaise. Approximately 1 day prior to admission, she began feeling febrile with chills, increased cough (intermittently productive with yellow/green sputum), pleuritic chest pain, salma phoresis, and mild confusion characterized by forgetfulness. Patient also endorses rhinorrhea but has this chronically at baseline. She denies wheezing or recent sick contacts. Patient has a duoneb inhaler but uses it infrequently (~1-2/week). Of note, the patient was recently hospitalized for approximately four days in late-May for pneumonia/sepsis. She was also recently treated by her PCP for a COPD exacerbation with prednisone and azithromycin about two weeks prior to admission. She has approximately one hospitalization per year for COPD exacerbation. She has never been intubated. She had a prior hospitalization for pneumonia in 2013. On presentation to the ED, the patient was febrile (101.5), tachycardic (114), and tachypneic (28) with soft blood pressures (90/60s); she was satting well on room air. Basic labs were notable for a significant leukocytosis (WBC 42.5) and mildly elevated lactate (2.4). CXR was notable for patchy infiltrate adjacent to the horizontal fissure corresponding to the anterior segment of the right upper lobe. She was started on IVF (2L), vancomycin, ceftriaxone, and azithromycin for presumed HCAP. PMH: Asthma, COPD PSH: Knee surgeries, back surgery, gallbladder removal, uterus removal FH: Dad had COPD/asthma SH: Actively smokes ~1 pack per day for the last 44 years (84-thpu-tjed history). No alcohol or illicit drug use. Medications: losartan-HCTZ, duonebs Allergies: NKDA (per patient) Allergies Allergen Reactions ??? Codeine Itching ??? Hydromorphone Stomach upset ??? Morphine Stomach upset ??? Sulfa (Sulfonamide Antibiotics) Stomach upset Review of Systems: All other systems were reviewed and are negative except as noted above in the HPI. Objective Scheduled Medications: azithromycin, 500 mg, intravenous, Q24H TANYA cefTRIAXone, 2,000 mg, intravenous, Q24H TANYA vancomycin, 1,000 mg, intravenous, Once Continuous Medications: PRN Medications: Vitals: Most Recent: Vitals: 09/11/19 1500 BP: 111/61 Pulse: 99 Resp: 26 Temp: SpO2: 93% Arrival Vitals Temp 09/11/19 1157 (!) 38.6 ??C (101.5 ??F) Pulse 09/11/19 1157 114 Resp 09/11/19 1157 28 BP 09/11/19 1159 124/71 SpO2 09/11/19 1157 96 % Temp src 09/11/19 1157 Oral Heart Rate Source -- Patient Position -- BP Location -- FiO2 (%) -- 24hr Min/Max: Temp Min: 38.6 ??C (101.5 ??F) Max: 38.6 ??C (101.5 ??F) Pulse Min: 98 Max: 114 BP Min: 109/42 Max: 134/77 Resp Min: 26 Max: 36 SpO2 Min: 93 % Max: 99 % I/O: No intake/output data recorded. I/O this shift: In: 20 [IV Piggyback:20] Out: - Physical Exam: General: chronically ill appearing female in no acute distress ENT: dry mucus membranes, oropharynx clear Eyes: sclera nonicteric, EOMI Neck: supple, no LAD CV: RRR, normal S1/S2, no m/r/g, no edema Pulm: Increased work of breathing. Diffuse inspiratory and expiratory wheezing. Abd: S, NT, ND, normal bowel sounds Ext: WWP, no clubbing or cyanosis Neuro: No focal deficits, alert and awake Skin: Warm, dry, no rashes Psych: Normal mood and affect Lab Results: Recent Results (from the past 24 hour(s)) CBC with auto differential Collection Time: 09/11/19 1:32 PM Result Value Ref Range WBC 42.5 (H) 3.8 - 9.9 K/cumm Hgb 14.0 11.9 - 15.5 g/dL Hct 44.0 35.6 - 45.5 % Plt 267 150 - 400 K/cumm MPV 10.7 9.1 - 12.3 fL RBC 5.17 3.90 - 5.20 M/cumm MCV 85.1 81.3 - 96.4 fL MCH 27.1 27.1 - 33.3 pg MCHC 31.8 (L) 32.3 - 35.7 g/dL RDW CV 14.1 11.1 - 14.9 % RDW SD 43.8 35.7 - 48.1 fL NRBC abs 0.00 0.00 - 0.01 K/cumm Comprehensive metabolic panel Collection Time: 09/11/19 1:32 PM Result Value Ref Range Sodium 137 135 - 145 mmol/L Potassium, pl 4.0 3.3 - 4.9 mmol/L Chloride 103 97 - 110 mmol/L CO2 22 22 - 32 mmol/L Anion gap 12 2 - 15 mmol/L BUN 15 8 - 25 mg/dL Creatinine 0.83 0.60 - 1.10 mg/dL Glucose 135 70 - 199 mg/dL Calcium 9.5 8.5 - 10.3 mg/dL Bilirubin, total 0.5 0.1 - 1.2 mg/dL Protein, pl 8.0 6.5 - 8.5 g/dL Albumin 4.1 3.5 - 5.0 g/dL Alk phos 84 40 - 130 Units/L ALT 15 7 - 45 Units/L AST 19 10 - 45 Units/L Troponin I Collection Time: 09/11/19 1:32 PM Result Value Ref Range Troponin I <0.03 0.00 - 0.03 ng/mL Influenza A/B and RSV PCR Nasopharyngeal Collection Time: 09/11/19 1:32 PM Result Value Ref Range Influenza A RNA Not Detected Not Detected Influenza B RNA Not Detected Not Detected RSV RNA Not Detected Not Detected Differential, auto Collection Time: 09/11/19 1:32 PM Result Value Ref Range Neutrophil abs 36.6 (H) 1.7 - 6.5 K/cumm Imm gran abs 1.2 (H) 0.0 - 0.1 K/cumm Lymphocyte abs 1.8 0.8 - 3.3 K/cumm Monocyte abs 2.7 (H) 0.2 - 0.8 K/cumm Eosinophil abs 0.0 0.0 - 0.5 K/cumm Basophil abs 0.1 0.0 - 0.1 K/cumm Neutrophil pct 86.3 % Imm gran pct 2.7 % Lymphocyte pct 4.3 % Monocyte pct 6.4 % Eosinophil pct 0.0 % Basophil pct 0.3 % POCT lactate Collection Time: 09/11/19 2:10 PM Result Value Ref Range Lactate POC i-STAT 2.4 (H) 0.7 - 2.2 mmol/L POCT lactate Collection Time: 09/11/19 3:27 PM Result Value Ref Range Lactate POC i-STAT 1.1 0.7 - 2.2 mmol/L I have reviewed the above laboratory results. Imaging Results: Xr Chest Pa Lateral 2 Vw Result Date: 09/11/2019 Comparison exam is a CT scan dated 07/05/2019. The left lung is well-expanded normal. There is somethickening along the right horizontal fissure with what appears to be patchy infiltrate adjacent tothe fissure corresponding to the anterior segment of the right upper lobe. This was not seen on therecent CT examination. Given the patient's symptoms, this could represent developing pneumonia. A follow-up two-view examination of the chest is recommended. Electronically signed by: Dagoberto Foster M.D. I have independently reviewed and interpreted the above imaging. Assessment/Plan #Hospital-associated pneumonia: Hospitalized for pneumonia less than 90 days ago (05/2019). - s/p CTX (09/11) - Vancomycin (09/11-) - Cefepime (09/12-) - Azithromycin (09/11-) #COPD Exacerbation: Likely due to pneumonia - Antibiotics as above - Prednisone 40 mg for 5 days - Duonebs q4h scheduled + q4h PRN #Hypertension: - Hold losartan-HCTZ in setting of PNA with soft blood pressures #Tobacco Use - Nicotine replacement therapy PRN Code Status: Full Code Diet: Regular Adult DVT Prophylaxis: Lovenox Access: MARGE Hoyt MD Neurology Resident PGY-1 [facility] in [place] [phone] documented in this encounter Procedure Notes * Taras Morrell MD - 09/14/2019 10:08 AM CDTAssociated Order(s): Critical Care Post-Procedure Diagnose(s): HCAP (healthcare-associated pneumonia) Critical Care Performed by: Taras Morrell MD Authorized by: Taras Morrell MD CRITICAL CARE: Team: SICU RED Shift: AM Level of Billing: Subsequent Hospital Visit Level 3 My time spent with this patient was 30 minutes: Critical Provider Statement: I have seen and examined the patient on this day of service. I have reviewed and confirmed the history, physical exam, laboratory, and radiographic data as documented in the ICU note. I have reviewed and discussed my treatment plan with the patient's team and other medical/ent consultant staff. This time was in addition to and separate from care provided by other practitioners on this day of service. Pneumonia I spent time reviewing and interpreting data from bedside monitors, laboratory results, and imaging, I spent time discussing the management of this critically ill patient with consultants and the medical staff and I spent time documenting in the medical record * Taras Morrell MD - 09/13/2019 5:02 PM CDTAssociated Order(s): Critical Care Post-Procedure Diagnose(s): Pneumonia due to infectious organism, unspecified laterality, unspecified part of lung Critical Care Performed by: Taras Morrell MD Authorized by: Taras Morrell MD CRITICAL CARE: Team: SICU RED Shift: AM Level of Billing: Subsequent Hospital Visit Level 3 My time spent with this patient was 30 minutes: Critical Provider Statement: I have seen and examined the patient on this day of service. I have reviewed and confirmed the history, physical exam, laboratory, and radiographic data as documented in the ICU note. I have reviewed and discussed my treatment plan with the patient's team and other medical/ent consultant staff. This time was in addition to and separate from care provided by other practitioners on this day of service. Pneumonia This time was spent by me doing the following: Empiric broad coverage antibiotics I spent time reviewing and interpreting data from bedside monitors, laboratory results, and imaging, I spent time discussing the management of this critically ill patient with consultants and the medical staff and I spent time documenting in the medical record * Taras Morrell MD - 09/12/2019 5:51 PM CDTAssociated Order(s): Critical Care Post-Procedure Diagnose(s): Pneumonia due to infectious organism, unspecified laterality, unspecified part of lung Critical Care Performed by: Taras Morrell MD Authorized by: Taras Morrell MD CRITICAL CARE: Team: SICU RED Shift: AM Level of Billing: Initial Hospital Visit Level 3 My time spent with this patient was 45 minutes: Critical Provider Statement: I have seen and examined the patient on this day of service. I have reviewed and confirmed the history, physical exam, laboratory, and radiographic data as documented in the ICU note. I have reviewed and discussed my treatment plan with the patient's team and other medical/ent consultant staff. This time was in addition to and separate from care provided by other practitioners on this day of service. Acute pain/acute postoperative pain Demand ischemia/elevated troponins Pneumonia and Leukocytosis This time was spent by me doing the following: Resuscitation with fluids Empiric broad coverage antibiotics I spent time reviewing and interpreting data from bedside monitors, laboratory results, and imaging, I spent time discussing the management of this critically ill patient with consultants and the medical staff and I spent time documenting in the medical record documented in this encounter Nursing Notes * Geovany Heath RN - 09/15/2019 2:30 PM CDT Discharged patient with her family. AVS, mobile pharmacy meds and belongings with the patient. Pt not in pain. * Geovany Heath RN - 09/15/2019 1:59 PM CDT AVS explained and given to the patient. Mobile pharmacy on their way for her home meds. Pt refusingto go down to the hospitality suite with only her hospital gown on. Awaiting for family to arrive with her clothes. All belongings kept in a bag at her bedside. * Geovany Heath RN - 09/14/2019 5:15 PM CDT Received patient by bed from [facility] in stable condition. No valuables with her. No significant changes from previous assessment. * Yary Jaffe RN - 09/14/2019 5:00 PM CDT Patient transferred to [facility] from 44 ICU bed 15 at 1700 Prior to transfer report called to [facility] [place] [id number], ICU fellow verified stability and appropriateness for transfer. MRSA swab sent, patient specific medications sent with patient. Patient oriented x4,pain wdl, vitals wdl. Sign out done by Red ICU provider, verified with Red Fellow that telemetry/pulse ox not needed. Patient transferred with belongings/transport, family bedside. * Margaret Dunn RN - 09/12/2019 8:12 AM CDT Pt transferred to ICU from 5500. BP stable upon transfer with 1L IVF infusing. Floor RN to notify son and daughter of transfer. Clothes and belongings at bedside. Will continue to monitor. * Judy Riley RN - 09/12/2019 6:41 AM CDT 0540 Floor called for ACT RN to bedside. Upon arrival MD's at bedside, nurse reports BP dropping over night, SBP 70's. Pt placed on ACT monitor HR 80's SR, BP 106/62, POC lactate 2.5. other labs sent. Pt to remain on division, 1L LR bolus ordered. 0615 pt accepted to 44ICU for closer monitoring. Pttransported on monitor w/ , GELACIO RN and primary nurse, critical hookups made upon arrival, BSSR given. documented in this encounter ED Notes * Lea Hartley MD - 09/11/2019 1:08 PM CDT HPI Chief Complaint Patient presents with ??? Chest Pain HPI Ni Neri is a 78 y.o. female with h/o COPD/asthma, HTN, pneumonia/sepsis presenting with cough and dyspnea. For the past 3-4 days she has had fatigue, malaise, generalized weakness, and decreased appetite. Yesterday she developed chills, cough, dyspnea, and mild confusion. She c/o chest painwith coughing. She was admitted to a [facility] in May while on vacation due to sepsis/pneumonia and family is concerned that she has again. She was recently treated with a course of steroids and antibiotics prescribed by her PCP for COPD exacerbation but did not take the antibiotics. She has been urinating frequently per family members but denies fever, congestion, rhinorrhea, sore throat, neck pain, nausea, vomiting, diarrhea, abdominal pain, dysuria, or other complaints. She lives alone but her family members have been staying with her for the past several days. Patient History Patient Active Problem List Diagnosis Date Noted ??? Chest injury 09/11/2019 ??? Chest wall pain 09/11/2019 ??? Chronic obstructive lung disease (CMS/HCC) 09/11/2019 ??? Depressive disorder 09/11/2019 ??? Ecchymosis 09/11/2019 ??? Impacted cerumen 09/11/2019 ??? Osteoarthritis 09/11/2019 ??? Vasovagal syncope 09/11/2019 ??? History of gastric ulcer 08/10/2019 ??? History of pneumonia 08/10/2019 ??? Exacerbation of asthma 09/13/2018 ??? Essential hypertension 01/11/2018 ??? Rhinitis 09/14/2017 ??? Chronic back pain 06/15/2017 ??? Spinal stenosis of lumbar region 04/23/2016 ??? Spondylolisthesis, lumbar region 04/23/2016 History reviewed. No pertinent past medical history. No past surgical history on file. History reviewed. No pertinent family history. Social History Tobacco Use ??? Smoking status: Not on file Substance Use Topics ??? Alcohol use: Not on file ??? Drug use: Not on file Social History Patient does not qualify to have social determinant information on file (likely too young). Social History Narrative ??? Not on file Review of Systems Review of Systems Constitutional: Positive for appetite change, chills and fatigue. Negative for fever. HENT: Negative for congestion. Respiratory: Positive for cough and shortness of breath. Cardiovascular: Positive for chest pain. Negative for leg swelling. Gastrointestinal: Negative for abdominal pain, diarrhea and vomiting. Genitourinary: Positive for frequency. Negative for dysuria. Musculoskeletal: Negative for back pain and neck pain. Skin: Negative for rash. Neurological: Positive for weakness. Negative for headaches. Psychiatric/Behavioral: Positive for confusion. Physical Exam ED Triage Vitals Temp Pulse Resp BP SpO2 09/11/19 1157 09/11/19 1157 09/11/19 1157 09/11/19 1159 09/11/19 1157 (!) 38.6 ??C (101.5 ??F) 114 28 124/71 96 % Temp src Heart Rate Source Patient Position BP Location FiO2 (%) 09/11/19 1157 -- -- -- -- Oral Physical Exam Vitals signs and nursing note reviewed. Constitutional: General: She is not in acute distress. Appearance: She is well-developed. She is ill-appearing. HENT: Head: Normocephalic. Mouth/Throat: Mouth: Mucous membranes are dry. Pharynx: No oropharyngeal exudate. Eyes: Extraocular Movements: Extraocular movements intact. Pupils: Pupils are equal, round, and reactive to light. Neck: Musculoskeletal: Normal range of motion and neck supple. Cardiovascular: Rate and Rhythm: Regular rhythm. Tachycardia present. Pulmonary: Effort: Pulmonary effort is normal. Tachypnea present. No accessory muscle usage or respiratory distress. Breath sounds: Examination of the right-lower field reveals rhonchi. Rhonchi present. No wheezing or rales. Abdominal: General: There is no distension. Palpations: Abdomen is soft. Tenderness: There is no tenderness. Musculoskeletal: General: No swelling. Skin: General: Skin is warm and dry. Neurological: General: No focal deficit present. Mental Status: She is alert and oriented to person, place, and time. Comments: Keeps eyes closed and frequently repeats oh I am so sick. When directly addressed, opens eyes and makes eye contact, answers questions appropriately and follows commands MDM MDM Ni Neri is a 78 y.o. with history of pneumonia and sepsis presenting with fever, cough, andmild confusion per family. Concern for pneumonia/sepsis, UTI, or other infection. She is febrile and tachycardic but normotensive. Per family members she takes Lasix as part of her home medication regimen. Will give initial fluid bolus now and reassess volume status. Will check labs, send blood cultures, give empiric antibiotics for HCAP coverage. Attending Summary of Care I have seen and examined the patient on 09/11/2019 . I agree with the findings and plan of care as documented in the resident's note. 78y/o F with PMH COPD/RAD, HTN, recent dx PNA/sepsis May 2019 in [place], here with family c/o 2 days cough, fever, SOB, possible confusion similar to prior presentation of PNA/sepsis On exam pt alert, somewhat slurred speech, EOMI, RRR, CTA, moving all extremities DDx inc. Sepsis, PNA, dehydration, less likely acute coronary syndrome, ARF. CXR c/w PNA. WBC significantly elevated. Pt getting IVF, IV abx, will need to be admitted, monitor closely, may need to broaden IV abx coverage ED Course as of Sep 11 1535 Time: 09/11 1322 Comment: CXR: The left lung is well-expanded normal. There is some thickening along the right horizontal fissure with what appears to be patchy infiltrate adjacent to the fissure corresponding to theanterior segment of the right upper lobe. This was not seen on the recent CT examination.?? Given the patient's symptoms, this could represent developing pneumonia. A follow-up two-view examination of the chest is recommended. By: Lea Hartley MD Time: 09/11 1426 Value: WBC(!): 42.5 Comment: (Reviewed) By: Lea Hartley MD Time: 09/11 1437 Value: Lactate POC GEM 3000(!): 2.4 Comment: (Reviewed) By: Lea Hartley MD Time: 09/11 6662 Comment: Signed out to medicine floor team By: Lea Hartley MD HCAP (healthcare-associated pneumonia) Lea Hartley MD Resident 09/11/19 0851 Cosigned by Africa Parada MD at 09/14/2019 12:48 PM CDT * Gunnar Smith RN - 09/11/2019 12:43 PM CDT Bed: ED1-14 Expected date: Expected time: Means of arrival: Car Comments: Gunnar Smith RN 09/11/19 1243 * Ligia Beckford RN - 09/11/2019 11:54 AM CDT Pt with hx of sepsis and pneumonia c/o chest pain and left arm pain with SOB that started today documented in this encounter Miscellaneous Notes * Plan of Care - Geovany Heath RN - 09/15/2019 1:59 PM CDT Problem: Fluid Volume: Goal: Maintenance of adequate hydration will improve 09/15/2019 1358 by Geovany Heath RN Outcome: Adequate for Discharge 09/15/2019 0808 by Geovany Heath RN Outcome: Progressing Problem: Respiratory: Goal: Ability to achieve and maintain a regular respiratory rate will improve 09/15/2019 1358 by Geovany Heath RN Outcome: Adequate for Discharge 09/15/2019 0808 by Geovany Heath RN Outcome: Progressing Goal: Ability to maintain a clear airway will improve 09/15/2019 1358 by Geovany Heath RN Outcome: Adequate for Discharge 09/15/2019 0808 by Geovany Heath RN Outcome: Progressing Goal: Ability to maintain normal pulse oximetry readings will improve 09/15/2019 1358 by Geovany Heath RN Outcome: Adequate for Discharge 09/15/2019 0808 by Geovany Heath RN Outcome: Progressing Goal: Verbalizations of increased ease of respirations will increase 09/15/2019 1358 by Geovany Heath RN Outcome: Adequate for Discharge 09/15/2019 0808 by Geovany Heath RN Outcome: Progressing Problem: Activity: Goal: Mobility will improve 09/15/2019 1358 by Geovany Heath RN Outcome: Adequate for Discharge 09/15/2019 0808 by Geovany Heath RN Outcome: Progressing Problem: Lack of Knowledge: Goal: Understanding of ways to prevent future skin breakdown will improve 09/15/2019 1358 by Geovany Heath RN Outcome: Adequate for Discharge 09/15/2019 0808 by Geovany Heath RN Outcome: Progressing Goal: Ability to identify appropriate dietary choices will improve 09/15/2019 1358 by Geovany Heath RN Outcome: Adequate for Discharge 09/15/2019 0808 by Geovany Heath RN Outcome: Progressing Problem: Nutritional: Goal: Dietary intake will improve 09/15/2019 1358 by Geovany Heath RN Outcome: Adequate for Discharge 09/15/2019 0808 by Geovany Heath RN Outcome: Progressing Goal: Ability to maintain a balanced intake and output will improve 09/15/2019 1358 by Geovany Heath RN Outcome: Adequate for Discharge 09/15/2019 0808 by Geovany Heath RN Outcome: Progressing Problem: Skin Integrity: Goal: Risk for impaired skin integrity will decrease 09/15/2019 1358 by Goevany Heath RN Outcome: Adequate for Discharge 09/15/2019 0808 by Geovany Heath RN Outcome: Progressing Goal: Ability to demonstrate warm and dry skin will improve 09/15/2019 1358 by Geovany Heath RN Outcome: Adequate for Discharge 09/15/2019 0808 by Geovany Heath RN Outcome: Progressing Goal: Circulation will improve to fullest extent possible 09/15/2019 1358 by Geovany Heath RN Outcome: Adequate for Discharge 09/15/2019 0808 by Geovany Heath RN Outcome: Progressing Problem: Health Behavior: Goal: Understanding of discharge needs will improve 09/15/2019 1358 by Geovany Heath RN Outcome: Adequate for Discharge 09/15/2019 0808 by Geovany Heath RN Outcome: Progressing Problem: Lack of Knowledge: Goal: Ability to state ways to decrease the risk of falls will improve 09/15/2019 1358 by Geovany Heath RN Outcome: Adequate for Discharge 09/15/2019 0808 by Geovany Heath RN Outcome: Progressing Problem: Safety: Goal: Will remain free from falls 09/15/2019 1358 by Geovany Heath RN Outcome: Adequate for Discharge 09/15/2019 0808 by Geovany Heath RN Outcome: Progressing Goal: Will remain free from injury from falls 09/15/2019 1358 by Geovany Heath RN Outcome: Adequate for Discharge 09/15/2019 0808 by Geovany Heath RN Outcome: Progressing Goal: Will remain free from falls and injury in home environment 09/15/2019 1358 by Geovany Heath RN Outcome: Adequate for Discharge 09/15/2019 0808 by Geovany Heath RN Outcome: Progressing Goals: Clinical Goals for the Shift: monitor vitals, prevent injuries.fall Summary: * Plan of Care - Lea Scherer MSW - 09/15/2019 1:36 PM CDT Per MD Gross, pt not amenable to SNF placement/discussion. feels discharge home is appropriate for pt. No further SW needs noted. Lea Scherer LMSW #[phone] * Hospital Course - Priti Gross MD - 09/15/2019 11:46 AM CDT Elevated troponin Trop was 0.07 on admission and downtrended. No ST changes on EKG. Likely demand in setting of PNA. ?? Hospital-acquired pneumonia On presentation, febrile, WBC 42, RUL infiltrate on CXR, satting well on RA. Empirically started onvanc/cefe/azithro for HCAP given recent hospitalization for PNA/sepsis in 05/2019 (within 90 days). Was admitted to general medicine floor but became hypotensive overnight to 70s systolic and requiredtransfer to ICU. Received 4L fluid resuscitation. BP remained stable in ICU and she transferred back to the floor on 09/14. She did not require any supplemental oxygen throughout admission. Vancomycin was d/c'd 09/14 as low concern for MRSA and troughs were persistently subtherapeutic. On arrival to the floor she remained HDS and satting well on RA. S/p cefe (09/11-09/15), azithro (09/11- 09/13), vanc (09/11-09/14). On the floor she was transitioned to PO levofloxacin 750 q48hrs to complete 7-day course total (end 09/17). PT/OT recommended SNF at discharge but patient refused so orders placed for home health with PT/OT. Patient remained asymptomatic and clinically stable. Discharged on 09/15to complete one additional dose of levofloxacin on 09/17. She will need a repeat CXR in 6 weeks to assess resolution of her pneumonia. ?? COPD (chronic obstructive pulmonary disease) ([facility]) Chart history of COPD. No PFTs in our system. On albuterol PRN at home. Recently treated by her PCPfor a COPD exacerbation with prednisone and azithromycin about two weeks prior to admission.??She has approximately one hospitalization per year for COPD exacerbation. She has never been intubated. She had a prior hospitalization for pneumonia in 2014. She follows with PCP in [place] who manages her COPD medications (on multiple inhalers but patient not sure which). - duonebs q4hrs - s/p azithro (09/11-09/13) - has appt with pulmonology in 11/2019 for PFTs * Plan of Care - Loy Garcia RRT - 09/15/2019 10:07 AM CDT Martinonedeandra qid, cont TX as ordered. * Plan of Care - Geovany Heath RN - 09/15/2019 8:08 AM CDT Problem: Fluid Volume: Goal: Maintenance of adequate hydration will improve Outcome: Progressing Problem: Respiratory: Goal: Ability to achieve and maintain a regular respiratory rate will improve Outcome: Progressing Goal: Ability to maintain a clear airway will improve Outcome: Progressing Goal: Ability to maintain normal pulse oximetry readings will improve Outcome: Progressing Goal: Verbalizations of increased ease of respirations will increase Outcome: Progressing Problem: Activity: Goal: Mobility will improve Outcome: [...] to fullest extent possible Outcome: Progressing Problem: Health Behavior: Goal: Understanding of discharge needs will improve Outcome: Progressing Problem: Lack of Knowledge: Goal: Ability to state ways to decrease the risk of falls will improve Outcome: Progressing Problem: Safety: Goal: Will remain free from falls Outcome: Progressing Goal: Will remain free from injury from falls Outcome: Progressing Goal: Will remain free from falls and injury in home environment Outcome: Progressing Goals: Clinical Goals for the Shift: monitor vitals. give meds and draw labs per order. keep pt free from falls and comfortable throughout the night Summary: * Plan of Walt - Sasha Anaya RN - 09/15/2019 6:30 AM CDT Goals: Clinical Goals for the Shift: monitor vitals. give meds and draw labs per order. keep pt free from falls and comfortable throughout the night Summary: vitals remained stable. Gave meds and soha labs per order. Pt remained free from injury and comfortable throughout the night Problem: Fluid Volume: Goal: Maintenance of adequate hydration will improve Outcome: Progressing Problem: Respiratory: Goal: Ability to achieve and maintain a regular respiratory rate will improve Outcome: Progressing Goal: Ability to maintain a clear airway will improve Outcome: Progressing Goal: Ability to maintain normal pulse oximetry readings will improve Outcome: Progressing Goal: Verbalizations of increased ease of respirations will increase Outcome: Progressing Problem: Activity: Goal: Mobility will improve Outcome: [...] to fullest extent possible Outcome: Progressing Problem: Health Behavior: Goal: Understanding of discharge needs will improve Outcome: Progressing Problem: Lack of Knowledge: Goal: Ability to state ways to decrease the risk of falls will improve Outcome: Progressing Problem: Safety: Goal: Will remain free from falls Outcome: Progressing Goal: Will remain free from injury from falls Outcome: Progressing Goal: Will remain free from falls and injury in home environment Outcome: Progressing * Assessment & Plan Note - Priti Gross MD - 09/14/2019 7:19 PM CDT Associated Problem(s): COPD (chronic obstructive pulmonary disease) (HCC) Chart history of COPD. No PFTs in our system. On albuterol PRN at home. Recently treated by her PCPfor a COPD exacerbation with prednisone and azithromycin about two weeks prior to admission. She has approximately one hospitalization per year for COPD exacerbation. She has never been intubated. She had a prior hospitalization for pneumonia in 2013. She follows with PCP in [place] who manages her COPD medications (on multiple inhalers but patient not sure which). - haresh q4hrs - s/p aviva (09/11-09/13) - has appt with pulmonology in 11/2019 for PFTs * Assessment & Plan Note - Priti Gross MD - 09/14/2019 7:18 PM CDT Associated Problem(s): Elevated troponin Resolved Trop 0.07 on admission -> 0.06. No ST changes on EKG. Likely demand in setting of PNA. * Assessment & Plan Note - Priti Gross MD - 09/14/2019 6:57 PM CDT Associated Problem(s): Hospital-acquired pneumonia (Resolved 05/13/2022) On presentation, febrile, WBC 42, RUL infiltrate [...] refuses so rec HH with PT/OT (ordered) * Significant Event - Soraida Neville MD - 09/14/2019 3:50 PM CDT CHUGG-OUT (SICU to OU/Floor Transfer) Admitting Dx: Pneumonia & hypotension Current Problems: pneumonia MD Consults: [] ACCS [] Cardiology [] Endo [] ENT [] GI [] Hand [] ID [] Neuro [] NSGY [] Ortho [] Pain [] PRS [] Renal [] Spine-NSGY [] Spine-Ortho [] Urology [] Other: Rehab/Ancillary Consults: [] BI (trauma patient with LOC) [] Chemical dependency [x] PT [] OT [] Speech [] PM&R [] SMART (stroke patient) [] Wound care CURRENT ANTICOAGULANT THERAPY [] VTE Prophylaxis [] Heparin [x] Lovenox [] SCDs [] IVC Filter [] Other: [] None - Reason: [] Therapeutic Anticoagulation Indication: [] Heparin [] Lovenox [] Other: Any previous issues with tolerating anticoagulants? [] Yes [x] No Describe: Venous duplex performed? [] Yes ---> Most recent findings: [x] No CURRENT ANTIMICROBIAL THERAPY Note - Planned duration may be a number of days or a criterion such as while drain in place or until blood cultures negative [] N/A - No current antimicrobial therapy ??? [Cefepime] Indication: pneumonia Start Date: 09/11/19 Planned Duration: unknown ??? [Azithromycin ] Indication: pneumonia Start Date: 09/11/19 Planned Duration: unknown ??? To insert additional antimicrobials, use the .SICUabx smart phrase. MEDICATIONS TO CONSIDER STOPPING PRIOR TO HOSPITAL DISCHARGE [] New antipsychotic (started for ICU delirium): [] Other: LINES/DRAINS/AIRWAYS PRESENT Peripheral IV 09/13/19 22 G Left Forearm (Active) Number of days: 1 Peripheral IV 09/14/19 18 G Left Forearm (Active) Number of days: 0 Weight Bearing Status: RUE: [x] WBAT [] NWB [] Other: LUE: [x] WBAT [] NWB [] Other: RLE: [x] WBAT [] TTWB [] NWB [] Other: LLE: [x] WBAT [] TTWB [] NWB [] Other: Disposition/Planning: Eval by LTAC/Rehab/SNF [] Yes [x] No [] N/A Facility: Medicaid paperwork completed: [] Yes [x] No [] N/A TO-DO LIST PRIOR TO TRANSFER Make sure the following monitors or precautions are ordered if indicated: Telemetry [] Yes [x] No Continuous pulse oximetry [x] Yes [] No VIVIENNE precautions [] Yes [] No Difficult airway [] Yes [] No Trach orders/signage [] Yes [x] No Size/Type: Date placed: Did patient require insulin while in SICU? [] Yes, scheduled insulin [x] Yes, sliding scale only ----> d/c SICU insulin and order floor sliding scale insulin [] No ----> d/c SICU insulin and blood glucose checks Is the patient receiving TPN? 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 Vaccines should be given 14 days after splenectomy or prior to hospital discharge, whichever occurs first. Central line necessary? [] Yes [] No [x] N/A Groin line necessary? [] Yes [] No [x] N/A [] Discontinue K/Mg/Phos repletion order (if applicable) [] Discontinue stress ulcer prophylaxis if no longer indicated [] Signed & Held orders reconciled (all orders either released or discontinued) [x] Sign-out was called to Dr. Priti Gross of the [facility]. QUESTIONS? Call [phone] * Plan of Care - Yary Jaffe RN - 09/14/2019 11:02 AM CDT Problem: Fluid Volume: Goal: Maintenance of adequate hydration will improve Outcome: Progressing Problem: Respiratory: Goal: Ability to achieve and maintain a regular respiratory rate will improve Outcome: Progressing Goal: Ability to maintain a clear airway will improve Outcome: Progressing Goal: Ability to maintain normal pulse oximetry readings will improve Outcome: Progressing Goal: Verbalizations of increased ease of respirations will increase Outcome: Progressing Problem: Activity: Goal: Mobility will improve Outcome: [...] to fullest extent possible Outcome: Progressing Problem: Health Behavior: Goal: Understanding of discharge needs will improve Outcome: Progressing Problem: Lack of Knowledge: Goal: Ability to state ways to decrease the risk of falls will improve Outcome: Progressing Problem: Safety: Goal: Will remain free from falls Outcome: Progressing Goal: Will remain free from injury from falls Outcome: Progressing Goal: Will remain free from falls and injury in home environment Outcome: Progressing Goals: Clinical Goals for the Shift: (hemodynamic stability, oobtc, abx, tx floor) Summary: Continuing to monitor hemodynamics/labs, oobtc, continuing abx, awaiting on floor transfer * Provider Query - Jill Adkins - 09/14/2019 7:12 AM CDT Please specify an appropriate diagnosis, if significant, that supports the lab findings and document in the medical record and on the form below. Indicate Present on Admission Status. __x_Lactic acidosis ___Abnormal laboratory findings, inconclusive diagnosis ___Other, specify below ___Clinically unable to determine Clinical Indicators/Treatments: Lab findings: Ref. Range 09/11/2019 14:10 09/11/2019 15:27 09/12/2019 05:40 09/12/2019 05:42 Lactate POC GEM 3000 Latest Ref Range: 0.7 - 2.2 mmol/L 2.4 (H) 1.1 2.2 Documented as and elevated lactate level (not a diagnosis) Monitoring/TX: Lab monitoring, 1 L LR 1 L NS x 2 Provider Response: Secondary to acute hypotension Use of terms such as likely, suspected, possible, or probable (associated with a specific diagnosisthat is being evaluated, monitored, or treated as if it exists) are acceptable and can be coded in the inpatient setting when documented at the time of discharge. This documentation will become part of the patient???s medical record. Respectfully, Jill Adkins RN BSN CCDS Clinical Document Restorer [id number] SICU * Plan of Care - Lisseth Rock RN - 09/14/2019 2:36 AM CDT Goals: Clinical Goals for the Shift: pain management, sleep hygiene, monitor labs, transfer to floor Summary: Patient complains of minimal chronic back pain. Labs drawn, potassium repleted. Awaiting floor bed.Will continue to monitor closely. Problem: Fluid Volume: Goal: Maintenance of adequate hydration will improve Outcome: Progressing Problem: Respiratory: Goal: Ability to achieve and maintain a regular respiratory rate will improve Outcome: Progressing Goal: Ability to maintain a clear airway will improve Outcome: Progressing Goal: Ability to maintain normal pulse oximetry readings will improve Outcome: Progressing Goal: Verbalizations of increased ease of respirations will increase Outcome: Progressing Problem: Activity: Goal: Mobility will improve Outcome: [...] to fullest extent possible Outcome: Progressing Problem: Health Behavior: Goal: Understanding of discharge needs will improve Outcome: Progressing * Plan of Care - Ángel Mccain - 09/13/2019 1:55 PM CDT Problem: Transfers Goal: STG - Patient will transfer sit to and from stand Description Mod indep 09/13/2019 1355 by Ángel Mccain Outcome: Completed 09/13/2019 1226 by Ángel Mccain Outcome: Progressing Flowsheets (Taken 09/13/2019 1226) Assist Level: mod I Cosigned by Natalya Dumont DPT at 09/13/2019 3:10 PM CDT * Plan of Care - Ángel Mccain - 09/13/2019 12:28 PM CDT Problem: Mobility Goal: STG - Patient will ambulate Description 200ft with AD as needed and Mod indep Outcome: Progressing Flowsheets (Taken 09/13/2019 1226) Assist Level: MIN Note: 1) 200 ft with WW and SUP 2) 30ft with MIN and no AD Problem: Transfers Goal: STG - Patient will transfer sit to and from stand Description Mod indep Outcome: Progressing Flowsheets (Taken 09/13/2019 1226) Assist Level: mod I Cosigned by Natalya Dumont DPT at 09/13/2019 1:38 PM CDT * Plan of Care - Alexandrea Ugalde RN - 09/13/2019 11:17 AM CDT Per progress notes, patient not medically ready for discharge. Trending troponin. Continue close BPmonitoring. Awaits therapy evals for dispo recommendations. Discharge needs undetermined at this time. Case management will continue to follow for discharge planning and referrals as needed. * Plan of Care - Yary Jaffe RN - 09/13/2019 9:41 AM CDT Problem: Fluid Volume: Goal: Maintenance of adequate hydration will improve Outcome: Progressing Problem: Respiratory: Goal: Ability to achieve and maintain a regular respiratory rate will improve Outcome: Progressing Goal: Ability to maintain a clear airway will improve Outcome: Progressing Goal: Ability to maintain normal pulse oximetry readings will improve Outcome: Progressing Goal: Verbalizations of increased ease of respirations will increase Outcome: Progressing Problem: Activity: Goal: Mobility will improve Outcome: [...] to fullest extent possible Outcome: Progressing Problem: Health Behavior: Goal: Understanding of discharge needs will improve Outcome: Progressing Goals: Clinical Goals for the Shift: OOBTC, Pain mgmt, Pulm Hygiene, Abx Tx, Tx floor Summary: Daily goals pain mgmt, oobtc, pulm hygiene,continue antibiotics, trend labs, hemodynamic monitoring, transfer to floor when bed available. * Provider Query - Jill Adkins - 09/13/2019 6:41 AM CDT Please clarify the most likely etiology of the patient???s symptoms. Present on hospital Admission status: ___Yes ___No _x__Unable to determine DIAGNOSIS: SIRS or Sepsis Syndrome does not equate to Sepsis. It is only a constellation of symptoms _x__ Sepsis (infection plus systemic manifestations) ___ Localized infection such as pneumonia, etc WITHOUT systemic manifestations ___ Other, specify below ___ Clinically unable to determine Clinical Indicators/Treatments: Patient's VS in ED - - BP 80/50s - 90/20s - 70/47s - MAP 40-60s - T 38.6 - WBC 42.5 - 34.8 - 25.7 - RR 28-30 - HR 100-110s - Lactate 2.4 - 1.1 - 2.2 Infection - developing pneumonia DX: HAP Monitoring/TX: Azithromycin, Cefepime, Vancomycin 4 L IVF, APAP fever 1 dose Ceftriaxone in ED Provider Response: Hypotension, leukocytosis Adult SIRS/Sepsis Screening Criteria SIRS Temp >38.3 C (100.9 F) or <36 (96.8 F) HR (pulse) >90 Respiratory rate >20 WBC > 12,000 or <4,000 or >10% bands Sepsis 2 of 4 SIRS criteria present AND suspected/confirmed source of infection Severe Sepsis Sepsis plus at least one sign of NEW hypoperfusion or organ dysfunction not limited to but may include: - Lactate >2 mmol/L - INR > 1.5 or aPTT >60 seconds - Platelet count <100,000 ??L?1 - Bilirubin >2 mg/dL - Creatinine >2 mg/dL (if no documentation of renal failure) - Urine output <0.5 mL/kg/hr x 2 hours - Acute respiratory failure with new need for mechanical ventilation or noninvasive ventilation - Altered mental status or Encephalopathy (new or acutely worsened due to infection) - One or more reading(s) of hypotension prior to 30ml/kg fluid bolus (SBP< 90 mmHG or MAP< 65, or SBP decrease of > 40 mmHG from baseline) Septic Shock Severe sepsis patients with: - Two or more readings of hypotension (SBP <90 or MAP< 65) after 30ml/kg fluid bolus, often requiring vasopressors or - Lactate >=4 Use of terms such as likely, suspected, possible, or probable (associated with a specific diagnosisthat is being evaluated, monitored, or treated as if it exists) are acceptable and can be coded in the inpatient setting when documented at the time of discharge. This documentation will become part of the patient???s medical record. Respectfully, Jill Adkins RN BSN CCDS Clinical Document Restorer [id number] SICU * Provider Query - Jill Adkins - 09/13/2019 6:30 AM CDT Please provide additional clinical indicators supportive of the documented diagnosis of Shock on 09/12 SICU H&P and PN. Indicate Present on Admission status. _x__ shock ruled out ___ hypovolemic shock was present on hospital admission and treated, and now resolved Hypotension documented from admission to ED @ 1430 on 09/11 to09/12 0535 BP and MAP stabilized in normal range after 4 L IVF boluses ___ Hypotension only no clinical indicators for shock ___ Other, specify below ___ Clinically unable to determine Clinical Indicators/Treatments: 09/11 1359 - 1 L NS 09/11 @ 1900 BP 84/53 91/28 MAP 44 84/47 MAP 56 85/43 MAP 52 87/55 MAP 63 09/11 1801 1 L NS 09/11 @ 2140 87/55 MAP 63 85/51 MAP 60 09/11 2225 - 1 L LR 09/11 @ 2315 82/50 85/56 85/56 85/52 85/52 87/51 84/50 70/47 73/36 70/47 81/37 Map 47, 09/12 0608 1 L LR 09/12 0535 BP 106/62 MAP 72 now stable SICU transfer 09/12 0632 - stable Provider Response: Patient was hypotensive, but likely not in shock Use of terms such as likely, suspected, possible, or probable (associated with a specific diagnosisthat is being evaluated, monitored, or treated as if it exists) are acceptable and can be coded in the inpatient setting when documented at the time of discharge. This documentation will become part of the patient's medical record. Respectfully, Jill Adkins RN BSN CCDS Clinical Document Restorer [id number] SICU * Plan of Care - Garth Rangel RN - 09/12/2019 7:54 PM CDT Problem: Fluid Volume: Goal: Maintenance of adequate hydration will improve Outcome: Progressing Problem: Respiratory: Goal: Ability to achieve and maintain a regular respiratory rate will improve Outcome: Progressing Goal: Ability to maintain a clear airway will improve Outcome: Progressing Goal: Ability to maintain normal pulse oximetry readings will improve Outcome: Progressing Goal: Verbalizations of increased ease of respirations will increase Outcome: Progressing Problem: Activity: Goal: Mobility will improve Outcome: [...] to fullest extent possible Outcome: Progressing Problem: Health Behavior: Goal: Understanding of discharge needs will improve Outcome: Progressing Goals: Clinical Goals for the Shift: abx therapy, VSS, monitor labs * Plan of Care - Margaret Dunn RN - 09/12/2019 4:32 PM CDT Problem: Fluid Volume: Goal: Maintenance of adequate hydration will improve Outcome: Progressing Problem: Respiratory: Goal: Ability to achieve and maintain a regular respiratory rate will improve Outcome: Progressing Goal: Ability to maintain a clear airway will improve Outcome: Progressing Goal: Ability to maintain normal pulse oximetry readings will improve Outcome: Progressing Goal: Verbalizations of increased ease of respirations will increase Outcome: Progressing Problem: Activity: Goal: Mobility will improve Outcome: [...] to fullest extent possible Outcome: Progressing Problem: Health Behavior: Goal: Understanding of discharge needs will improve Outcome: Progressing Goals: Clinical Goals for the Shift: Monitor BP. Antibiotics per MD order. Summary: [facility] out. Awaiting Med floor bed. Transfer out of ICU. * Provider Query - Jill Adkins - 09/12/2019 10:01 AM CDT Based on the clinical indicators and antibiotic choice, specify the most likely type of pneumonia(s) being treated by the antibiotics you have chosen. Document in the medical record and on the form below. Indicate Present on Admission status. NOTE: CAP, HAP and HCAP do not indicate the type of pneumonia being treated Select all conditions being treated: ____Aspiration pneumonia ____Gram negative pneumonia, specify organism below, if known ____Gram positive pneumonia, specify organism below, if known ____Staph pneumonia ____Strep pneumonia ____Other, specify below __x__Clinically unable to determine Clinical Indicators/Treatments: Patient admitted for a Hospital acquired pneumonia from a stay June 10, 2019. No cultures. CXR infiltrate RUL Monitoring/TX: Pateint given Ceftriaxone in ED. Change to Vancomycin, Cefepime and Azithromycin Provider Response: PNA diagnosed based on RUL infiltrate. No culture data available to specific etiology of PNA Use of terms such as likely, suspected, possible, or probable (associated with a specific diagnosisthat is being evaluated, monitored, or treated as if it exists) are acceptable and can be coded in the inpatient setting when documented at the time of discharge. This documentation will become part of the patient???s medical record. Respectfully, Jill Adkins RN BSN CCDS Clinical Document Restorer [id number] SICU * Plan of Care - Varsha Vivar RRT - 09/12/2019 3:45 AM CDT Pt is here for HCAP/ COPD exacerbation. BS bilateral wheeze/coarse. Plan of care : will cont Q4 duo neb overnight, wean as tolerated * Plan of Care - Lea Ribeiro RN - 09/12/2019 3:43 AM CDT Goals: Monitor vital signs, breathing patterns and pain management. Promote rest and calming environment. Summary: Problem: Fluid Volume: Goal: Maintenance of adequate hydration will improve Outcome: Progressing Problem: Respiratory: Goal: Ability to achieve and maintain a regular respiratory rate will improve Outcome: Progressing Goal: Ability to maintain a clear airway will improve Outcome: Progressing Goal: Ability to maintain normal pulse oximetry readings will improve Outcome: Progressing Goal: Verbalizations of increased ease of respirations will increase Outcome: Progressing * ED Re-evaluation Note - Christie Olmstead MD - 09/11/2019 3:16 PM CDT ED Re-evaluation COPD/HTN DC from [facility] in May after pneumonia/sepsis Cc cough, sob, confusion x 2 days S/p antibotics/steroids by PCP, but did not take ABX Now concerned she may have PNA again RML infiltrate on CXR, fever IVF Ceftriaxone, azithromycin WBC 40, lactic 2.4, should repeat On exam, respiratory distress, tachypneic, irritable May need reassessment, pt may need ICU if she does not improve Reassessed, at times appears in distress with tachycardia, but then resolves during conversation. Patient is appropriate for floor admission. She is speaking complete sentences, her oxygen sats arenormal on oxygen. Informed of dx, visualized chest xray together, elevated WBC and reassured. Christie Olmstead MD 09/14/19 1018 * ED Re-evaluation Note - Masoud Coughlin MD - 09/11/2019 2:40 PM CDT ED Re-evaluation TRANSITION OF CARE: I, Masoud Trujillo MD, am taking signout from Dr. Hartley (Resident) under supervision of Dr. Olmstead (Attending). I have reviewed all pertinent vital signs, allergies, and history available in the chart. Summary: 78 y.o. female COPD/asthma, HTN, pneumonia/sepsis presenting with cough and dyspnea and confusion onset yesterday. Recent admission to [facility] for PNA w/ sepsis in 05/2019. Recent course of steroids for COPD exacerbation prescribed by PMD. Family brought pt to ER today. Febrile andtachy today with cxr with RML infiltrate. WBC 42 with lactate 2.4. s/p CTX/azith IVF (drip score islow risk). Pending: reevaluate, potential for broadening abx Dispo: medicine admission, pending signout ED Course as of Sep 11 1949 Time: 09/11 1322 Comment: CXR: The left lung is well-expanded normal. There is some thickening along the right horizontal fissure with what appears to be patchy infiltrate adjacent to the fissure corresponding to theanterior segment of the right upper lobe. This was not seen on the recent CT examination.?? Given the patient's symptoms, this could represent developing pneumonia. A follow-up two-view examination of the chest is recommended. By: Lea Hartley MD Time: 09/11 1426 Value: WBC(!): 42.5 Comment: (Reviewed) By: Lea Hartley MD Time: 09/11 143 Value: Lactate POC GEM 3000(!): 2.4 Comment: (Reviewed) By: Lea Hartley MD Time: 09/11 9453 Comment: Signed out to medicine floor team By: Lea Hartley MD Time: 09/11 1877 Comment: Lactate 1.1 from 2.4 s/p IVF By: MD Masoud Jackson MD Resident 09/11/191948 * ED Procedure Note - Africa Parada MD - 09/11/2019 1:35 PM CDT Associated Order(s): Critical Care Procedure Critical Care Performed by: Africa Barker MD Authorized by: Africa Barker MD Critical care provider statement: As reflected in the history, physical exam, orders, notes, and/or MDM, I was personally present while the patient was critically ill and provided critical care services for approximately 35 minutes, excluding time involved in separately billable procedures. Critical care was necessary to treat or prevent imminent or life-threatening deterioration of the following condition(s): sepsis and pneumonia Critical care was time spent by me providing the following: continuous telemetry, continuous pulse oximetry, serial bedside patient exams and resuscitation with fluids obtain appropriate cultures and empiric broad coverage antibiotics I provided emergent necessary critical care medicine services to this patient. I ordered and reviewed test results and/or imaging studies. I spent time discussing the management of this critically ill patient with consultants and the medical staff. I spent time discussing the management and therapeutic options for this critically ill patient with the patient themselves or with the appropriate designated surrogate decision-maker. I spent time documenting in the medical record. I admitted this patient to a continuous cardiac monitored bed. Africa Barker MD 09/25/19 0804 NESS EXECUTIVE * ED Procedure Note - Marquis Barbosa MD - 09/11/2019 12:00 PM CDTAssociated Order(s): ECG 12 lead Procedure ECG 12 lead Date/Time: 09/11/2019 12:00 PM Performed by: Marquis Barbosa MD Authorized by: Marquis Barbosa MD Rate: ECG rate: 109 ECG rate assessment: tachycardic Rhythm: Rhythm: sinus tachycardia Ectopy: Ectopy: none QRS: QRS axis: Left QRS intervals: Normal Conduction: Conduction: normal ST segments: ST segments: Non-specific T waves: T waves: non-specific Q waves: Q waves: V1 Other findings: Other findings: LAE Previous ECG: Previous ECG: Unavailable Interpretation: Interpretation: abnormal Recommended Follow-up: Recommended follow up: further workup in the ED Comments: Low risk of ACS Marquis Barbosa MD 09/11/19 1201 * ED Triage Provider Note - Marquis Barbosa MD - 09/11/2019 11:58 AM CDT Triage Provider Summary: Was in hospital in May in [place] for pneumonia and sepsis. Complete Abx, had f/u CT chest in June at [facility] showing some ?scarring in lungs. Here now with right anterior CP similar to pain during pneumonia, SOB. VS noted. O2 sat 98% RA Fair symmetric air movement. ECG - non-specific, no old to compare. To next available room. documented in this encounter Plan of Treatment Scheduled Orders Name Type Priority Associated Diagnoses Orde r Schedule ECG 12 lead ECG STAT Once for 1 Oc currences starting 09/12/2019 until 09/12/2019 ECG 12 lead ECG Routine Once for 1 Oc currences starting 09/13/2019 until 09/13/2019 documented as of this encounter Procedures Procedure Name Priority Date/Time Associated Diagnosis Comments DIFFERENTIAL AUTO Routine 09/14/2019 9:2 2 PM CDT CBC WITH AUTO DIFFERENTIAL Routine 09/14/2019 9:22 PM CDT BASIC METABOLIC PANEL Routine 09/14/2019 9:22 PM CDT INFECTION PREVENTION MRSA ONLY (STAPHYLOCOCCUS AUREUS) CULTURE Routine 09/14/2019 3:00 PM CDT CRITICAL CARE Routine 09/14/2019 10:08 AM CDT HCAP ([facility] pneumonia) POCT GLUCOSE DEVICE Routine 09/14/2019 7 :30 AM CDT POCT GLUCOSE DEVICE Routine 09/13/2019 1 1:15 PM CDT DIFFERENTIAL AUTO Routine 09/13/2019 10: 12 PM CDT CBC WITH AUTO DIFFERENTIAL Routine 09/13/2019 10:12 PM CDT PHOSPHORUS Timed 09/13/2019 10:12 PM CDT MAGNESIUM Timed 09/13/2019 10:12 PM CDT BASIC METABOLIC PANEL Timed 09/13/2019 10:12 PM CDT CRITICAL CARE Routine 09/13/2019 5:02 PM CDT Pneumonia due to infectious organism, unspecified laterality, unspecified part of lung POCT GLUCOSE DEVICE Routine 09/13/2019 3 :19 PM CDT VANCOMYCIN LEVEL TROUGH Timed 09/13/2019 2:05 PM CDT POCT GLUCOSE DEVICE Routine 09/13/2019 7 :15 AM CDT TROPONIN I Timed 09/13/2019 3:09 AM CDT POCT GLUCOSE DEVICE Routine 09/12/2019 1 1:40 PM CDT CBC WITH AUTO DIFFERENTIAL Routine 09/12/2019 9:11 PM CDT TROPONIN I Timed 09/12/2019 9:11 PM CDT MANUAL DIFFERENTIAL Routine 09/12/2019 9 :11 PM CDT PHOSPHORUS Timed 09/12/2019 9:11 PM CDT MAGNESIUM Timed 09/12/2019 9:11 PM CDT BASIC METABOLIC PANEL Timed 09/12/2019 9:11 PM CDT CRITICAL CARE Routine 09/12/2019 5:51 PM CDT Pneumonia due to infectious organism, unspecified laterality, unspecified part of lung POCT GLUCOSE DEVICE Routine 09/12/2019 3 :45 PM CDT XR CHEST 1 VIEW IP Routine 09/12/2019 1:35 PM CDT POCT GLUCOSE DEVICE Routine 09/12/2019 1 1:27 AM CDT INFECTION PREVENTION MRSA ONLY (STAPHYLOCOCCUS AUREUS) CULTURE Routine 09/12/2019 8:56 AM CDT POCT GLUCOSE DEVICE Routine 09/12/2019 7 :10 AM CDT ECG 12-LEAD Routine 09/12/2019 5:58 AM CDT CBC WITH AUTO DIFFERENTIAL STAT 09/12/2019 5:44 AM CDT MANUAL DIFFERENTIAL STAT 09/12/2019 5 :44 AM CDT PROTIME-INR STAT 09/12/2019 5:44 AM CDT POCT LACTATE - DEVICE Routine 09/12/2019 5:42 AM CDT PRO B-TYPE NATRIURETIC PEPTIDE STAT 09/12/2019 5:40 AM CDT TROPONIN I STAT 09/12/2019 5:40 AM CDT POCT GLUCOSE DEVICE Routine 09/11/2019 9 :29 PM CDT URINALYSIS AND REFLEX TO MICROSCOPIC AND CULTURE Routine 09/11/2019 4:34 PM CDT POCT LACTATE - DEVICE Routine 09/11/2019 3:27 PM CDT POCT LACTATE - DEVICE Routine 09/11/2019 2:10 PM CDT BLOOD CULTURE Routine 09/11/2019 1:42 PM CDT BLOOD CULTURE Routine 09/11/2019 1:42 PM CDT SC CRITICAL CARE ILL/INJURED PATIENT INIT 30-74 MIN Routine 09/11/2019 1:35 PM CDT INFLUENZA A/B AND RSV PCR STAT 09/11/2019 1:32 PM CDT DIFFERENTIAL AUTO STAT 09/11/2019 1:3 2 PM CDT CBC WITH AUTO DIFFERENTIAL STAT 09/11/2019 1:32 PM CDT TROPONIN I STAT 09/11/2019 1:32 PM CDT LACTATE DEHYDROGENASE STAT 09/11/2019 1:32 PM CDT COMPREHENSIVE METABOLIC PANEL STAT 09/11/2019 1:32 PM CDT XR CHEST PA LATERAL 2 VIEWS ED 09/11/2019 12:12 PM CDT ECG 12-LEAD STAT 09/11/2019 12:00 PM CDT documented in this encounter Results * (ABNORMAL) Differential, auto (09/14/2019 9:22 PM CDT) Neutrophil abs 7.6(H) 1.7 - 6.5 K/cumm [facility] Imm gran abs 0.0 0.0 - 0.1 K/cumm [facility] Lymphocyte abs 2.3 0.8 - 3.3 K/cumm [facility] Monocyte abs 0.8 0.2 - 0.8 K/cumm [facility] Eosinophil abs 0.3 0.0 - 0.5 K/cumm [facility] Basophil abs 0.0 0.0 - 0.1 K/cumm [facility] Neutrophil pct 68.2 % [facility] Comment: Interpretive Data Percent cell count reference ranges are not reported, since discordance with absolute values may lead to misinterpretation of CBC data. Current Interpretive Data was last revised on 2018. Imm gran pct 0.5 % [facility] Comment: Interpretive Data Percent cell count reference ranges are not reported, since discordance with absolute values may lead to misinterpretation of CBC data. Current Interpretive Data was last revised on 2018. Lymphocyte pct 21.0 % [facility] Comment: Interpretive Data Percent cell count reference ranges are not reported, since discordance with absolute values may lead to misinterpretation of CBC data. Current Interpretive Data was last revised on 2018. Monocyte pct 6.9 % [facility] Comment: Interpretive Data Percent cell count reference ranges are not reported, since discordance with absolute values may lead to misinterpretation of CBC data. Current Interpretive Data was last revised on 2018. Eosinophil pct 2.9 % [facility] Comment: Interpretive Data Percent cell count reference ranges are not reported, since discordance with absolute values may lead to misinterpretation of CBC data. Current Interpretive Data was last revised on 2018. Basophil pct 0.5 % [facility] Comment: Interpretive Data Percent cell count reference ranges are not reported, since discordance with absolute values may lead to misinterpretation of CBC data. Current Interpretive Data was last revised on 2018. Blood specimen (specimen) 09/14/2019 9:22 PM CDT 09/14/2019 10:18 PM CDT us Christie Olmstead MD LAB BLOOD ORDERABLES Final Re sult [facility] Department [place] [address] * (ABNORMAL) CBC with auto differential (09/14/2019 9:22 PM CDT) WBC 11.1(H) 3.8 - 9.9 K/cumm [facility] Hgb 12.1 11.9 - 15.5 g/dL [facility] Hct 38.0 35.6 - 45.5 % [facility] Plt 291 150 - 400 K/cumm [facility] MPV 10.3 9.1 - 12.3 fL [facility] RBC 4.44 3.90 - 5.20 M/cumm [facility] MCV 85.6 81.3 - 96.4 fL [facility] MCH 27.3 27.1 - 33.3 pg [facility] MCHC 31.8(L) 32.3 - 35.7 g/dL [facility] RDW CV 14.2 11.1 - 14.9 % [facility] RDW SD 44.3 35.7 - 48.1 fL [facility] NRBC abs 0.00 0.00 - 0.01 K/cumm [facility] Blood specimen (specimen) 09/14/2019 9:22 PM CDT 09/14/2019 10:18 PM CDT us Christie Olmstead MD LAB BLOOD ORDERABLES Final Re sult [facility] Department [place] [address] * Basic metabolic panel (09/14/2019 9:22 PM CDT) Sodium 142 135 - 145 mmol/L [facility] Potassium, pl 3.8 3.3 - 4.9 mmol/L [facility] Chloride 108 97 - 110 mmol/L [facility] CO2 22 22 - 32 mmol/L [facility] Anion gap 12 2 - 15 mmol/L [facility] BUN 10 8 - 25 mg/dL [facility] Creatinine 0.71 0.60 - 1.10 mg/dL [facility] Glucose 123 70 - 199 mg/dL [facility] Comment: Interpretive Data Fasting [...] interpretive data was last revised 2017. Calcium 9.1 8.5 - 10.3 mg/dL [facility] Blood specimen (specimen) 09/14/2019 9:22 PM CDT 09/14/2019 10:18 PM CDT us Christie Olmstead MD LAB BLOOD ORDERABLES Final Re sult Performing Organization Address [facility] Co de Phone Number [facility] Department [place] [address] * MRSA culture Nasal (09/14/2019 3:00 PM CDT) Report Final Report: Negative [facility] Nasal 09/14/2019 3:00 PM CDT 09/14/2019 4:30 PM CDT Narrative [facility] - 09/15/2019 7:15 PM CDT Testing performed by [facility] ([phone]). us Scott Chavez MD LAB MICROBIOLOGY - GENERAL ORDER RAINE Final Result Performing Organization Address [facility] de Phone Number [facility] Department [place] [address] * Critical Care (09/14/2019 10:08 AM CDT) Narrative Taras Morrell MD - 09/14/2019 10:08 AM CDT Taras Morrell MD ? 09/14/2019 ??6:08 PM Critical Care Performed by: Taras Morrell MD Authorized by: Taras Morrell MD CRITICAL CARE: ??Team: ??SICU RED ??Shift: ??AM ??Level of Billing: ??Subsequent Hospital Visit Level 3 ??My time spent with this patient was 30 minutes: Critical Provider Statement: I have seen and examined the patient on this day of service. I have reviewed and confirmed the history, physical exam, laboratory, and radiographic data as documented in the ICU note. I have reviewed and discussed my treatment plan with the patient's team and other medical/ent consultant staff. This time was in addition to and separate from care provided by other practitioners on this day of service. ? Pneumonia ?? I spent time reviewing and interpreting data from bedside monitors, laboratory results, and imaging, I spent time discussing the management of this critically ill patient with consultants and the medical staff and I spent time documenting in the medical record us Taras Morrell MD IN CLINIC/BEDSIDE ORDER RAINE Final Result * POCT glucose (09/14/2019 7:30 AM CDT) Glucose, POC 104 70 - 199 mg/dL [facility] Blood specimen (specimen) 09/14/2019 7:30 AM CDT 09/14/2019 7:30 AM CDT Chris Dickerson Jr., MD LAB POCT ORDERABLES - DEVICE Final Result Performing Organization Address [facility] Co de Phone Number [facility] [place] [address] * POCT glucose (09/13/2019 11:15 PM CDT) Glucose, POC 122 70 - 199 mg/dL [facility] Blood specimen (specimen) 09/13/2019 11:15 PM CDT 09/13/2019 11:15 PM CDT Chris Dickerson Jr., MD LAB POCT ORDERABLES - DEVICE Final Result Performing Organization Address [facility] Co de Phone Number [address] [address] * Basic metabolic panel (09/13/2019 10:12 PM CDT) Sodium 142 135 - 145 mmol/L [facility] Potassium, pl 3.4 3.3 - 4.9 mmol/L [facility] Chloride 109 97 - 110 mmol/L [facility] CO2 23 22 - 32 mmol/L [facility] Anion gap 10 2 - 15 mmol/L [facility] BUN 10 8 - 25 mg/dL [facility] Creatinine 0.90 0.60 - 1.10 mg/dL [facility] Glucose 120 70 - 199 mg/dL [facility] Comment: Interpretive Data Fasting [...] 2017. Calcium 8.7 8.5 - 10.3 mg/dL [facility] Blood specimen (specimen) 09/13/2019 10:12 PM CDT 09/13/2019 10:27 PM CDT Chris Dickerson Jr., MD LAB BLOOD ORDERABLES Final Result Performing Organization Address City/State/[facility] Co de Phone Number [facility] [address] [place] [address] * (ABNORMAL) Differential, auto (09/13/2019 10:12 PM CDT) Neutrophil abs 9.8(H) 1.7 - 6.5 K/cumm [facility] Imm gran abs 0.1 0.0 - 0.1 K/cumm [facility] Lymphocyte abs 3.5(H) 0.8 - 3.3 K/cumm [facility] Monocyte abs 1.0(H) 0.2 - 0.8 K/cumm [facility] Eosinophil abs 0.3 0.0 - 0.5 K/cumm [facility] Basophil abs 0.0 0.0 - 0.1 K/cumm [facility] Neutrophil pct 66.7 % [facility] Comment: Interpretive Data Percent cell count reference ranges are not reported, since discordance with absolute values may lead to misinterpretation of CBC data. Current Interpretive Data was last revised on 2018. Imm gran pct 0.4 % [facility] Comment: Interpretive Data Percent cell count reference ranges are not reported, since discordance with absolute values may lead to misinterpretation of CBC data. Current Interpretive Data was last revised on 2018. Lymphocyte pct 23.9 % [facility] Comment: Interpretive Data Percent cell count reference ranges are not reported, since discordance with absolute values may lead to misinterpretation of CBC data. Current Interpretive Data was last revised on 2018. Monocyte pct 6.5 % [facility] Comment: Interpretive Data Percent cell count reference ranges are not reported, since discordance with absolute values may lead to misinterpretation of CBC data. Current Interpretive Data was last revised on 2018. Eosinophil pct 2.2 % [facility] Comment: Interpretive Data Percent cell count reference ranges are not reported, since discordance with absolute values may lead to misinterpretation of CBC data. Current Interpretive Data was last revised on 2018. Basophil pct 0.3 % [facility] Comment: Interpretive Data Percent cell count reference ranges are not reported, since discordance with absolute values may lead to misinterpretation of CBC data. Current Interpretive Data was last revised on 2018. Blood specimen (specimen) 09/13/2019 10:12 PM CDT 09/13/2019 10:29 PM CDT Christie Olmstead MD LAB BLOOD ORDERABLES Final Re sult Performing Organization Address [facility]/ZIP Co de Phone Number [address] [address] * Phosphorus (09/13/2019 10:12 PM CDT) Phosphorus, pl 2.6 2.3 - 4.5 mg/dL [facility] Blood specimen (specimen) 09/13/2019 10:12 PM CDT 09/13/2019 10:27 PM CDT Krissy MATTHEW LAB BLOOD ORDERABLE S Final Result Performing Organization Address [facility]/ZIP Co de Phone Number [address] [address] * Magnesium (09/13/2019 10:12 PM CDT) Pathologist [facility] Magnesium 2.2 1.4 - 2.5 mg/dL [facility] Blood specimen (specimen) 09/13/2019 10:12 PM CDT 09/13/2019 10:27 PM CDT Krissy MATTHEW LAB BLOOD ORDERABLE S Final Result Performing Organization Address City/[facility]/ZIP Co de Phone Number [address] [address] * (ABNORMAL) CBC with auto differential (09/13/2019 10:12 PM CDT) [facility] [facility] WBC 14.7(H) 3.8 - 9.9 K/cumm [facility] Hgb 10.9(L) 11.9 - 15.5 g/dL [facility] Hct 34.5(L) 35.6 - 45.5 % [facility] Plt 246 150 - 400 K/cumm [facility] MPV 11.0 9.1 - 12.3 fL [facility] RBC 4.10 3.90 - 5.20 M/cumm [facility] MCV 84.1 81.3 - 96.4 fL [facility] MCH 26.6(L) 27.1 - 33.3 pg [facility] MCHC 31.6(L) 32.3 - 35.7 g/dL [facility] RDW CV 14.3 11.1 - 14.9 % [facility] RDW SD 44.0 35.7 - 48.1 fL [facility] NRBC abs 0.00 0.00 - 0.01 K/cumm [facility] Blood specimen (specimen) 09/13/2019 10:12 PM CDT 09/13/2019 10:29 PM CDT Christie Olmstead MD LAB BLOOD ORDERABLES Final Re sult [address] [address] * Critical Care (09/13/2019 5:02 PM CDT) Narrative Porsche, Taras Jansen MD - 09/13/2019 5:02 PM CDT Taras Morrell MD ? 09/13/2019 ??5:03 PM Critical Care Performed by: Taras Morrell MD Authorized by: Taras Morrell MD CRITICAL CARE: ??Team: ??SICU RED ??Shift: ??AM ??Level of Billing: ??Subsequent Hospital Visit Level 3 ??My time spent with this patient was 30 minutes: Critical Provider Statement: I have seen and examined the patient on this day of service. I have reviewed and confirmed the history, physical exam, laboratory, and radiographic data as documented in the ICU note. I have reviewed and discussed my treatment plan with the patient's team and other medical/ent consultant staff. This time was in addition to and separate from care provided by other practitioners on this day of service. ? Pneumonia ??This time was spent by me doing the following: ? Empiric broad coverage antibiotics ?? I spent time reviewing and interpreting data from bedside monitors, laboratory results, and imaging, I spent time discussing the management of this critically ill patient with consultants and the medical staff and I spent time documenting in the medical record us Taras Morrell MD IN CLINIC/BEDSIDE ORDER RAINE Final Result * POCT glucose (09/13/2019 3:19 PM CDT) Glucose, POC 110 70 - 199 mg/dL [facility] Blood specimen (specimen) 09/13/2019 3:19 PM CDT 09/13/2019 3:19 PM CDT us Chris Dickerson Jr., MD LAB POCT ORDERABLES - DEVICE Final Result [facility] [address] [place] [address] * (ABNORMAL) Vancomycin, trough (09/13/2019 2:05 PM CDT) Pathologist [facility] Vancomycin trough 4.5(L) 10.0 - 20.9 mcg/mL [facility] Blood specimen (specimen) 09/13/2019 2:05 PM CDT 09/13/2019 2:16 PM CDT Krissy MATTHEW LAB BLOOD ORDERABLE S Final Result Performing Organization Address [facility] Co de Phone Number [address] [address] * POCT glucose (09/13/2019 7:15 AM CDT) [facility] Glucose, POC 93 70 - 199 mg/dL [facility] Blood specimen (specimen) 09/13/2019 7:15 AM CDT 09/13/2019 7:15 AM CDT Chris Dickerson Jr., MD LAB POCT ORDERABLES - DEVICE Final Result Performing Organization Address [facility] de Phone Number [address] [address] * (ABNORMAL) Troponin I (09/13/2019 3:09 AM CDT) [facility] Troponin I 0.06(H) 0.00 - 0.03 ng/mL [facility] Comment: Interpretive Data: Normal plasma Troponin I concentrations can reach 1 ng/mL in the first two weeks of life and slowly decrease to adult levels (<0.03 ng/mL) by the age of 3 months. > 3 months ??<0.03 ng/mL > or = 18 years Serial determinations are recommended for the diagnosis of myocardial infarction. ??Temporal rise and fall are consistent with myocardial infarction when at least one value is above the 99th percentile upper reference limit for Troponin assay. References: 1. Clin Chem 2013;59:9383-3068 2. Journal of the [place] [employer] 2012;60:1581-98 Current Interpretive Data Last Revised Date: 2018. Blood specimen (specimen) 09/13/2019 3:09 AM CDT 09/13/2019 3:18 AM CDT Narrative [facility] - 09/13/2019 3:55 AM CDT Please draw at 0300 on 09/13 Chris Dickerson Jr., MD LAB BLOOD ORDERABLES Final Result Performing Organization Address [facility] Co de Phone Number [address] [address] * POCT glucose (09/12/2019 11:40 PM CDT) Pathologist [facility] Glucose, POC 101 70 - 199 mg/dL [facility] Blood specimen (specimen) 09/12/2019 11:40 PM CDT 09/12/2019 11:40 PM CDT Chris Dickerson Jr., MD LAB POCT ORDERABLES - DEVICE Final Result Performing Organization Address [facility] de Phone Number [address] [address] * (ABNORMAL) Troponin I (09/12/2019 9:11 PM CDT) [facility] Troponin I 0.07(H) 0.00 - 0.03 ng/mL [facility] Comment: Interpretive Data: Normal plasma Troponin I concentrations can reach 1 ng/mL in the first two weeks of life and slowly decrease to adult levels (<0.03 ng/mL) by the age of 3 months. > 3 months ??<0.03 ng/mL > or = 18 years Serial determinations are recommended for the diagnosis of myocardial infarction. ??Temporal rise and fall are consistent with myocardial infarction when at least one value is above the 99th percentile upper reference limit for Troponin assay. References: 1. Clin Chem 2013;59:4782-2112 2. Journal of the [place] [employer] 2012;60:1581-98 Current Interpretive Data Last Revised Date: 2018. Blood specimen (specimen) 09/12/2019 9:11 PM CDT 09/12/2019 11:03 PM CDT Chris Dickerson Jr., MD LAB BLOOD ORDERABLES Final Result Performing Organization Address [facility] Co de Phone Number [facility] [address] [place] [address] * (ABNORMAL) Manual Differential (09/12/2019 9:11 PM CDT) Differential Manual [facility] Cells Counted 113 [facility] Neutrophil abs 21.6(H) 1.7 - 6.5 K/cumm [facility] Imm gran abs 0.0 0.0 - 0.1 K/cumm [facility] Lymphocyte abs 3.0 0.8 - 3.3 K/cumm [facility] Monocyte abs 0.7 0.2 - 0.8 K/cumm [facility] Eosinophil abs 0.5 0.0 - 0.5 K/cumm [facility] Neutrophil pct 84.0 % [facility] Comment: Interpretive Data Percent cell count reference ranges are not reported, since discordance with absolute values may lead to misinterpretation of CBC data. Current Interpretive Data was last revised on 2018. Lymphocyte pct 10.6 % [facility] Comment: Interpretive Data Percent cell count reference ranges are not reported, since discordance with absolute values may lead to misinterpretation of CBC data. Current Interpretive Data was last revised on 2018. Monocyte pct 2.7 % [facility] Comment: Interpretive Data Percent cell count reference ranges are not reported, since discordance with absolute values may lead to misinterpretation of CBC data. Current Interpretive Data was last revised on 2018. Eosinophil pct 1.8 % [facility] Comment: Interpretive Data Percent cell count reference ranges are not reported, since discordance with absolute values may lead to misinterpretation of CBC data. Current Interpretive Data was last revised on 2018. Variant lymph pct 0.9(H) 0.0 - 0.0 % [facility] Blood specimen (specimen) 09/12/2019 9:11 PM CDT 09/12/2019 11:05 PM CDT Christie Olmstead MD LAB BLOOD ORDERABLES Final Re sult [facility] [address] [place] [address] * (ABNORMAL) Basic metabolic panel (09/12/2019 9:11 PM CDT) Sodium 142 135 - 145 mmol/L [facility] Potassium, pl 3.9 3.3 - 4.9 mmol/L [facility] Chloride 110 97 - 110 mmol/L [facility] CO2 21(L) 22 - 32 mmol/L [facility] Anion gap 11 2 - 15 mmol/L [facility] BUN 14 8 - 25 mg/dL [facility] Creatinine 0.82 0.60 - 1.10 mg/dL [facility] Glucose 96 70 - 199 mg/dL [facility] Comment: Interpretive Data Fasting [...] 2017. Calcium 8.7 8.5 - 10.3 mg/dL [facility] Blood specimen (specimen) 09/12/2019 9:11 PM CDT 09/12/2019 10:51 PM CDT us Chris Dickerson Jr., MD LAB BLOOD ORDERABLES Final Result Performing Organization Address City/[facility]/ZIP Co de Phone Number [place] [address] * Magnesium (09/12/2019 9:11 PM CDT) Magnesium 1.6 1.4 - 2.5 mg/dL [facility] Blood specimen (specimen) 09/12/2019 9:11 PM CDT 09/12/2019 10:51 PM CDT Krissy MATTHEW LAB BLOOD ORDERABLE S Final Result Performing Organization Address City/[facility]/ZIP Co de Phone Number [address] [address] * Phosphorus (09/12/2019 9:11 PM CDT) [facility] Phosphorus, pl 2.4 2.3 - 4.5 mg/dL [facility] Blood specimen (specimen) 09/12/2019 9:11 PM CDT 09/12/2019 10:51 PM CDT Krissy MATTHEW LAB BLOOD ORDERABLE S Final Result Performing Organization Address [facility] de Phone Number [address] [address] * (ABNORMAL) CBC with auto differential (09/12/2019 9:11 PM CDT) [facility] WBC 25.7(H) 3.8 - 9.9 K/cumm [facility] Hgb 11.5(L) 11.9 - 15.5 g/dL [facility] Hct 35.9 35.6 - 45.5 % [facility] Plt 218 150 - 400 K/cumm [facility] MPV 11.5 9.1 - 12.3 fL [facility] RBC 4.20 3.90 - 5.20 M/cumm [facility] MCV 85.5 81.3 - 96.4 fL [facility] MCH 27.4 27.1 - 33.3 pg [facility] MCHC 32.0(L) 32.3 - 35.7 g/dL [facility] RDW CV 14.5 11.1 - 14.9 % [facility] RDW SD 45.1 35.7 - 48.1 fL [facility] NRBC abs 0.00 0.00 - 0.01 K/cumm [facility] Blood specimen (specimen) 09/12/2019 9:11 PM CDT 09/12/2019 11:02 PM CDT us Christie Olmstead MD LAB BLOOD ORDERABLES Final Re sult [facility] [address] [place] [address] * Critical Care (09/12/2019 5:51 PM CDT) Narrative Taras Morrell MD - 09/12/2019 5:51 PM CDT Taras Morrell MD ? 09/12/2019 ??5:54 PM Critical Care Performed by: Taras Morrell MD Authorized by: Taras Morrell MD CRITICAL CARE: ??Team: ??SICU RED ??Shift: ??AM ??Level of Billing: ??Initial Hospital Visit Level 3 ??My time spent with this patient was 45 minutes: Critical Provider Statement: I have seen and examined the patient on this day of service. I have reviewed and confirmed the history, physical exam, laboratory, and radiographic data as documented in the ICU note. I have reviewed and discussed my treatment plan with the patient's team and other medical/ent consultant staff. This time was in addition to and separate from care provided by other practitioners on this day of service. ? Acute pain/acute postoperative pain ?? Demand ischemia/elevated troponins ?? Pneumonia and Leukocytosis ??This time was spent by me doing the following: ? Resuscitation with fluids ?? Empiric broad coverage antibiotics ?? I spent time reviewing and interpreting data from bedside monitors, laboratory results, and imaging, I spent time discussing the management of this critically ill patient with consultants and the medical staff and I spent time documenting in the medical record us Taras Morrell MD IN CLINIC/BEDSIDE ORDER RAINE Final Result * POCT glucose (09/12/2019 3:45 PM CDT) Glucose, POC 102 70 - 199 mg/dL [facility] Blood specimen (specimen) 09/12/2019 3:45 PM CDT 09/12/2019 3:45 PM CDT us Chris Dickerson Jr., MD LAB POCT ORDERABLES - DEVICE Final Result [facility] [address] [place] [address] * XR Chest 1 View (09/12/2019 1:35 PM CDT) Anatomical Region Laterality Modality Body, Chest N/A Computed Radiogr aphy 09/12/2019 2:09 PM CDT Impressions 09/12/2019 2:10 PM CDT Comparison is made to chest radiograph dated 09/11/2019 at 12:08 PM. ??Cardiomediastinal silhouette is normal. The left lung is clear. ??There is no pleural effusion or pneumothorax. ??There is thickening along the right horizontal fissure as well an unchanged focal consolidation in the right upper lobe consistent with pneumonia. Follow-up chest radiograph to ensure clearance is recommended. Dictated by: Calvin Meza M.D. The radiology attending physician has personally reviewed this study, and had reviewed and/or edited this written report and agrees with it. Electronically signed by: Navid Morgan M.D. Narrative 09/12/2019 2:10 PM CDT EXAMINATION: 1 view chest radiograph Procedure Note Navid Morgan MD - 09/12/2019 EXAMINATION: 1 view chest radiograph IMPRESSION: Comparison is made to chest radiograph dated 09/11/2019 at 12:08 PM. Cardiomediastinal silhouette is normal. The left lung is clear. There is no pleural effusion or pneumothorax. There is thickening along the right horizontal fissure as well an unchanged focal consolidation in the right upper lobe consistent with pneumonia. Follow-up chest radiograph to ensure clearance is recommended. Dictated by: Calvin Meza M.D. The radiology attending physician has personally reviewed this study, and had reviewed and/or edited this written report and agrees with it. Electronically signed by: Navid Morgan M.D. us Chris Dickerson Jr., MD IMG XR PROCEDURES Fin al Result * POCT glucose (09/12/2019 11:27 AM CDT) Glucose, POC 140 70 - 199 mg/dL [facility] Blood specimen (specimen) 09/12/2019 11:27 AM CDT 09/12/2019 11:27 AM CDT us Chris Dickerson Jr., MD LAB POCT ORDERABLES - DEVICE Final Result Performing Organization Address [facility] Co de Phone Number [address] [address] * MRSA culture Nasal (09/12/2019 8:56 AM CDT) Report Final Report: Negative [facility] Nasal 09/12/2019 8:56 AM CDT 09/12/2019 9:40 AM CDT Narrative [facility] - 09/13/2019 11:25 AM CDT Testing performed by [facility]biology [facility] ([phone]). us Albertina Lorenzana NP LAB MICROBIOLOGY - GENE RAL ORDERABLES Final Result Performing Organization Address [facility] de Phone Number [address] [address] * POCT glucose (09/12/2019 7:10 AM CDT) Glucose, POC 108 70 - 199 mg/dL [facility] Blood specimen (specimen) 09/12/2019 7:10 AM CDT 09/12/2019 7:10 AM CDT us Chris Dickerson Jr., MD LAB POCT ORDERABLES - DEVICE Final Result Performing Organization Address [facility] de Phone Number [address] [address] * ECG 12 lead (09/12/2019 5:58 AM CDT) Ventricular Rate EKG/Min [address] [facility] Atrial Rate [address] [facility] SC-Interval (MSEC) [address] [facility] QRS-Interval (MSEC) [address] [facility] QT-Interval (MSEC) [address] [facility] QTc [address] [facility] P [place] [address] [facility] R [place] -[address] [facility] T [place] [address] [facility] Diagnosis Sinus rhythm with short SC Possible Left atrial enlargement Left axis deviation Incomplete left bundle branch block Abnormal ECG No previous ECGs available Confirmed by MONICA VIERA M.D ([id number]) on 09/12/2019 2:18:[address] [facility] 09/12/2019 5:58 AM CDT 09/12/2019 2:18 PM CDT us Chris Dickerson Jr., MD ECG ORDERABLES Final Result [facility] * (ABNORMAL) Manual Differential (09/12/2019 5:44 AM CDT) [facility] Differential Manual [facility] Cells Counted 114 [facility] Neutrophil abs 25.9(H) 1.7 - 6.5 K/cumm [facility] Imm gran abs 2.1(H) 0.0 - 0.1 K/cumm [facility] Lymphocyte abs 4.0(H) 0.8 - 3.3 K/cumm [facility] Monocyte abs 2.4(H) 0.2 - 0.8 K/cumm [facility] Basophil abs 0.3(H) 0.0 - 0.1 K/cumm [facility] Neutrophil pct 74.6 % [facility] Comment: Interpretive Data Percent cell count reference ranges are not reported, since discordance with absolute values may lead to misinterpretation of CBC data. Current Interpretive Data was last revised on 2018. Lymphocyte pct 11.4 % [facility] Comment: Interpretive Data Percent cell count reference ranges are not reported, since discordance with absolute values may lead to misinterpretation of CBC data. Current Interpretive Data was last revised on 2018. Monocyte pct 7.0 % [facility] Comment: Interpretive Data Percent cell count reference ranges are not reported, since discordance with absolute values may lead to misinterpretation of CBC data. Current Interpretive Data was last revised on 2018. Basophil pct 0.9 % [facility] Comment: Interpretive Data Percent cell count reference ranges are not reported, since discordance with absolute values may lead to misinterpretation of CBC data. Current Interpretive Data was last revised on 2018. Metamyelocyte pct 6.1(H) 0.0 - 0.0 % [facility] Blood specimen (specimen) 09/12/2019 5:44 AM CDT 09/12/2019 6:03 AM CDT Chris Dickerson Jr., MD LAB BLOOD ORDERABLES Final Result Performing Organization Address City/State/[facility] Co de Phone Number [facility] [address] [place] [address] * (ABNORMAL) Protime-INR (09/12/2019 5:44 AM CDT) PT 16.8(H) 8.6 - 13.0 sec [facility] INR 1.54(H) 0.80 - 1.20 [facility] Comment: Interpretive Data Inpatient therapeutic ranges* Atrial fibrillation ?2.0-3.0 INR Venous thrombo-embolism ?2.0-3.0 INR Bioprosthetic heart valve ?* Mechanical heart valve, bileaflet or tilting disk,aortic position ? 2.0-3.0 INR All other,or bileaflet or tilting disk, in mitral position ? 2.5-3.5 INR *See the pharmacy resource directory (PHRED) for an updated copy of the Tool Book at [email or web address] Current Interpretive Data was last revised 2012. Blood specimen (specimen) 09/12/2019 5:44 AM CDT 09/12/2019 5:57 AM CDT us Chris Dickerson Jr., MD LAB BLOOD ORDERABLES Final Result Performing Organization Address [facility]/ZIP Co de Phone Number [facility] [address] [address] * (ABNORMAL) CBC with auto differential (09/12/2019 5:44 AM CDT) [facility] WBC 34.8(H) 3.8 - 9.9 K/cumm [facility] Hgb 11.6(L) 11.9 - 15.5 g/dL [facility] Hct 36.4 35.6 - 45.5 % [facility] Plt 221 150 - 400 K/cumm [facility] MPV 11.4 9.1 - 12.3 fL [facility] RBC 4.14 3.90 - 5.20 M/cumm [facility] MCV 87.9 81.3 - 96.4 fL [facility] MCH 28.0 27.1 - 33.3 pg [facility] MCHC 31.9(L) 32.3 - 35.7 g/dL [facility] RDW CV 14.3 11.1 - 14.9 % [facility] RDW SD 46.2 35.7 - 48.1 fL [facility] NRBC abs 0.00 0.00 - 0.01 K/cumm [facility] Blood specimen (specimen) 09/12/2019 5:44 AM CDT 09/12/2019 6:00 AM CDT us Chris Dickerson Jr., MD LAB BLOOD ORDERABLES Final Result Performing Organization Address [facility] Co de Phone Number [facility] [address] * POCT lactate (09/12/2019 5:42 AM CDT) [facility] Lactate POC i-STAT 2.2 0.7 - 2.2 mmol/L [facility] Blood specimen (specimen) 09/12/2019 5:42 AM CDT 09/12/2019 5:42 AM CDT us Chris Dickerson Jr., MD LAB POCT ORDERABLES - DEVICE Final Result Performing Organization Address City/State/[facility] Co de Phone Number [facility] [address] [place] [address] * (ABNORMAL) Pro B-type natriuretic peptide (09/12/2019 5:40 AM CDT) [facility] NT-proBNP 1,003(H) <=450 pg/mL [facility] Comment: Interpretive Comments: A. Dyspnea in Acute Care Setting All Ages: ?< 300 pg/ml, acute heart failure unlikely. < 50 yrs: ?300 - 450 pg/ml, further investigation warranted. ? > 450 pg/ml, acute heart failure likely. 50 - 74 yrs: ? 300 - 900 pg/ml, further investigation warranted. ? > 900 pg/ml, acute heart failure likely . > or = 75 yrs: ? 450 - 1800 pg/ml, further investigation warranted. ? > 1800 pg/ml, acute heart failure likely. B. Non-acute Setting < 75 yrs ? < 125 pg/ml, rules out heart failure. ? > or = 125 pg/ml, further investigation warranted. > or = 75 yrs ?< 450 pg/ml, rules out heart failure. ? > or = 450 pg/ml, further investigation warranted. - Knowledge of each individual patient's NT-proBNP range may be more useful than using similar cut-points for every patient. Please note that marked elevations in NT-proBNP levels may be observed in state other than Left Ventricular Congestive Failure, including: acute coronary syndromes, right heart strain/failure (including pulmonary embolism and cor pulmonale), critical illness, renal failure, as well as advanced age. - References: 1. Logan DAVID et.al. Eur Heart J. 2006:27:330-337. 2. Ellen ESPINAL, Dee ROMERO. J. AM Sandoval Cardiol: Cardiovasc Imag. 2009;2: 216- 225. Interpretive Data Last Revised Date: 2018. Blood specimen (specimen) 09/12/2019 5:40 AM CDT 09/12/2019 6:00 AM CDT us Chris Dickerson Jr., MD LAB BLOOD ORDERABLES Final Result Performing Organization Address [facility] Co de Phone Number [facility] [address] [place] [address] * Troponin I (09/12/2019 5:40 AM CDT) Troponin I 0.03 0.00 - 0.03 ng/mL [facility] Comment: Interpretive Data: Normal plasma Troponin I concentrations can reach 1 ng/mL in the first two weeks of life and slowly decrease to adult levels (<0.03 ng/mL) by the age of 3 months. > 3 months ??<0.03 ng/mL > or = 18 years Serial determinations are recommended for the diagnosis of myocardial infarction. ??Temporal rise and fall are consistent with myocardial infarction when at least one value is above the 99th percentile upper reference limit for Troponin assay. References: 1. Clin Chem 2013;59:5000-8141 2. Journal of the [place] [employer] 2012;60:1581-98 Current Interpretive Data Last Revised Date: 2018. Blood specimen (specimen) 09/12/2019 5:40 AM CDT 09/12/2019 6:00 AM CDT us Chris Dickerson Jr., MD LAB BLOOD ORDERABLES Final Result Performing Organization Address City/[facility]/ZIP Co de Phone Number [facility] [address] [place] [address] * POCT glucose (09/11/2019 9:29 PM CDT) Glucose, POC 115 70 - 199 mg/dL [facility] Blood specimen (specimen) 09/11/2019 9:29 PM CDT 09/11/2019 9:29 PM CDT us Chris Dickerson Jr., MD LAB POCT ORDERABLES - DEVICE Final Result Performing Organization Address [facility] Co de Phone Number [facility] [address] [place] [address] * Urinalysis reflex to microscopic and culture Urine (09/11/2019 4:34 PM CDT) Color, ur Yellow Yellow [facility] Clarity, ur Clear Clear [facility] Specific gravity, ur 1.014 1.010 - 1.025 [facility] pH, urine 6 [facility] Protein, ur ql Negative Negative [facility] Glucose, ur ql Negative Negative [facility] Ketones, ur Negative Negative [facility] Bilirubin, ur Negative Negative [facility] Blood, ur Negative Negative [facility] Urobilinogen, ur <2.0 <2.0 mg/dL [facility] Nitrite, ur Negative Negative [facility] Leukocyte esterase, ur Negative Negative [facility] Urine 09/11/2019 4:34 PM CDT 09/11/2019 4:42 PM CDT Narrative [facility] - 09/11/2019 4:47 PM CDT THE BJ COLLECTION LOCATION IS [facility] ED1-14 Urine pH is affected by diet, medications, systemic acid-base disturbances, and renal tubular function. ??pH may affect urinary stone formation. ??For example, urine pH below 6.0 may help reduce the tendency for calcium phosphate stones and pH greater than 6.0 may reduce the tendency for uric acid stone formation. Source: [employer]. Last revised 12-02-2017 us Africa Barker MD LAB MICROBIOLOGY - GENER AL ORDERABLES Final Result Performing Organization Address [facility] Co de Phone Number [address] [address] * POCT lactate (09/11/2019 3:27 PM CDT) Lactate POC i-STAT 1.1 0.7 - 2.2 mmol/L [facility] Blood specimen (specimen) 09/11/2019 3:27 PM CDT 09/11/2019 3:27 PM CDT Chris Dickerson Jr., MD LAB POCT ORDERABLES - DEVICE Final Result Performing Organization Address [facility] Co de Phone Number [address] [address] * (ABNORMAL) POCT lactate (09/11/2019 2:10 PM CDT) [facility] Lactate POC i-STAT 2.4(H) 0.7 - 2.2 mmol/L [facility] Blood specimen (specimen) 09/11/2019 2:10 PM CDT 09/11/2019 2:10 PM CDT Notinfile Unknown LAB POCT ORDERABLES - DEVICE F inal Result Performing Organization Address [facility] Co de Phone Number [address] [address] * Blood culture Blood (09/11/2019 1:42 PM CDT) Report Final Report: No growth [facility] Blood specimen (specimen) 09/11/2019 1:42 PM CDT 09/11/2019 2:03 PM CDT Narrative [facility] - 09/16/2019 4:00 PM CDT From a different site than #1. THE COLLECTION LOCATION IS . Blood cultures are incubated for 5 days on a continuously monitored blood culture system. The first report of a negative culture is issued within 24 hours of receipt of the specimen in the laboratory. 2. Positive culture results are reported as soon as they are detected. 3. The most important factor for detection of microbes in the setting of bloodstream infection is the volume of blood submitted for culture. Failure to collect an optimal blood volume can result in false negative blood cultures. For pediatric patients, the recommended blood volume to collect is 1 mL of blood per year of patient age (up to 20 mL) per blood culture set. For adult patients, 20 mL of blood, divided equally between aerobic and anaerobic blood culture bottles, is recommended for each blood culture set. 4. For blood cultures with Gram-positive cocci, a rapid molecular test for organism identification may be performed using the [employer] Gram-Positive Blood Culture Assay. This assay detects microbial DNA in positive blood culture broth via hybridization of target DNA to capture oligonucleotides on a microarray. This assay has been cleared by the [place] Food and Drug Administration and its performance characteristics have been verified by the [facility]. 5. For questions about this culture, contact the Microbiology Laboratory at [phone]. Interpretive data was last revised on 2018. Africa Barker MD LAB MICROBIOLOGY - [facility] ORDERABLES Final Result [facility] One [facility] Department [place] [address] * Blood culture Blood (09/11/2019 1:42 PM CDT) Report Final Report: No growth [facility] Blood specimen (specimen) 09/11/2019 1:42 PM CDT 09/11/2019 2:03 PM CDT Narrative [facility] - 09/16/2019 4:00 PM CDT THE COLLECTION LOCATION IS 1. Blood cultures are incubated for 5 days on a continuously monitored blood culture system. The first report of a negative culture is issued within 24 hours of receipt of the specimen in the laboratory. 2. Positive culture results are reported as soon as they are detected. 3. The most important factor for detection of microbes in the setting of bloodstream infection is the volume of blood submitted for culture. Failure to collect an optimal blood volume can result in false negative blood cultures. For pediatric patients, the recommended blood volume to collect is 1 mL of blood per year of patient age (up to 20 mL) per blood culture set. For adult patients, 20 mL of blood, divided equally between aerobic and anaerobic blood culture bottles, is recommended for each blood culture set. 4. For blood cultures with Gram-positive cocci, a rapid molecular test for organism identification may be performed using the [employer] Gram-Positive Blood Culture Assay. This assay detects microbial DNA in positive blood culture broth via hybridization of target DNA to capture oligonucleotides on a microarray. This assay has been cleared by the [place] Food and Drug Administration and its performance characteristics have been verified by the [facility]. 5. For questions about this culture, contact the Microbiology Laboratory at [phone]. Interpretive data was last revised on 2018. us Africa Barker MD LAB MICROBIOLOGY - [facility] AL ORDERABLES Final Result Performing Organization Address City/State/ZIP Co ia Phone Number [facility] One [facility] Department [place] [address] * SC CRITICAL CARE ILL/INJURED PATIENT INIT 30-74 MIN (09/11/2019 1:35 PM CDT) Narrative Africa Parada MD - 09/11/2019 1:35 PM CDT Africa Barker MD ? 09/25/2019 ??8:04 AM Critical Care Performed by: Africa Barker MD Authorized by: Africa Barker MD Critical care provider statement: As reflected in the history, physical exam, orders, notes, and/or MDM, I was personally present while the patient was critically ill and provided critical care services for approximately 35 minutes, excluding time involved in separately billable procedures. ??Critical care was necessary to treat or prevent imminent or life-threatening deterioration of the following condition(s): ?? sepsis and pneumonia ??Critical care was time spent by me providing the following: ? continuous telemetry, continuous pulse oximetry, serial bedside patient exams and resuscitation with fluids ?? obtain appropriate cultures and empiric broad coverage antibiotics ?? I provided emergent necessary critical care medicine services to this patient. I ordered and reviewed test results and/or imaging studies. I spent time discussing the management of this critically ill patient with consultants and the medical staff. I spent time discussing the management and therapeutic options for this critically ill patient with the patient themselves or with the appropriate designated surrogate decision-maker. I spent time documenting in the medical record. I admitted this patient to a continuous cardiac monitored bed. us Africa Barker MD IN CLINIC/BEDSIDE ORDERA BLES Final Result * (ABNORMAL) Lactate dehydrogenase (LD) (09/11/2019 1:32 PM CDT) Pathologist [facility] Lactate dehydrogenase (LDH) 413(H) 100 - 250 Units/L [facility] Blood specimen (specimen) 09/11/2019 1:32 PM CDT 09/11/2019 2:10 PM CDT Chris Dickerson Jr., MD LAB BLOOD ORDERABLES Final Result Performing Organization Address City/[facility] Co de Phone Number [facility] [address] [place] [address] * (ABNORMAL) Differential, auto (09/11/2019 1:32 PM CDT) Pathologist [facility] Neutrophil abs 36.6(H) 1.7 - 6.5 K/cumm [facility] Imm gran abs 1.2(H) 0.0 - 0.1 K/cumm [facility] Lymphocyte abs 1.8 0.8 - 3.3 K/cumm [facility] Monocyte abs 2.7(H) 0.2 - 0.8 K/cumm [facility] Eosinophil abs 0.0 0.0 - 0.5 K/cumm [facility] Basophil abs 0.1 0.0 - 0.1 K/cumm [facility] Neutrophil pct 86.3 % [facility] Comment: Interpretive Data Percent cell count reference ranges are not reported, since discordance with absolute values may lead to misinterpretation of CBC data. Current Interpretive Data was last revised on 2018. Imm gran pct 2.7 % [facility] Comment: Interpretive Data Percent cell count reference ranges are not reported, since discordance with absolute values may lead to misinterpretation of CBC data. Current Interpretive Data was last revised on 2018. Lymphocyte pct 4.3 % [facility] Comment: Interpretive Data Percent cell count reference ranges are not reported, since discordance with absolute values may lead to misinterpretation of CBC data. Current Interpretive Data was last revised on 2018. Monocyte pct 6.4 % [facility] Comment: Interpretive Data Percent cell count reference ranges are not reported, since discordance with absolute values may lead to misinterpretation of CBC data. Current Interpretive Data was last revised on 2018. Eosinophil pct 0.0 % [facility] Comment: Interpretive Data Percent cell count reference ranges are not reported, since discordance with absolute values may lead to misinterpretation of CBC data. Current Interpretive Data was last revised on 2018. Basophil pct 0.3 % [facility] Comment: Interpretive Data Percent cell count reference ranges are not reported, since discordance with absolute values may lead to misinterpretation of CBC data. Current Interpretive Data was last revised on 2018. Blood specimen (specimen) 09/11/2019 1:32 PM CDT 09/11/2019 2:10 PM CDT us Marquis Barbosa MD LAB BLOOD ORDERABLES Final Res ult [facility] [address] [place] [address] * Influenza A/B and RSV PCR Nasopharyngeal (09/11/2019 1:32 PM CDT) Influenza A RNA Not Detected Not Detected [facility] Influenza B RNA Not Detected Not Detected [facility] RSV RNA Not Detected Not Detected [facility] Comment: Interpretive Data Testing performed by [facility] ([phone]). This test is performed using the [employer] Xpert Flu/RSV Assay. ??This is a multiplex, real-time reverse transcriptase PCR assay that detects influenza A, influenza B,and respiratory syncytial virus RNA. ??This assay has been cleared by the [place] Food and Drug Administration, and its performance characteristics have been verified by the [facility]. Interpretive Data last revised 2019 Nasopharyngeal 09/11/2019 1: 32 PM CDT 09/11/2019 1:53 PM CDT [facility]ative [facility] - 09/11/2019 2:31 PM CDT THE COLLECTION LOCATION IS [facility] ED1-14 Lea Hartley MD LAB MICROBIOLOGY - GENERAL ORDERABLES Final Result Performing Organization Address [facility] de Phone Number [address] [address] * Troponin I (09/11/2019 1:32 PM CDT) [facility] Troponin I <0.03 0.00 - 0.03 ng/mL [facility] Comment: Interpretive Data: Normal plasma Troponin I concentrations can reach 1 ng/mL in the first two weeks of life and slowly decrease to adult levels (<0.03 ng/mL) by the age of 3 months. > 3 months ??<0.03 ng/mL > or = 18 years Serial determinations are recommended for the diagnosis of myocardial infarction. ??Temporal rise and fall are consistent with myocardial infarction when at least one value is above the 99th percentile upper reference limit for Troponin assay. References: 1. Clin Chem 2013;59:[id number] 2. Journal of the [place] [employer] 2012;60:1581-98 Current Interpretive Data Last Revised Date: 2018. Blood specimen (specimen) 09/11/2019 1:32 PM CDT 09/11/2019 2:10 PM CDT Narrative [facility] - 09/11/2019 2:56 PM CDT THE COLLECTION LOCATION IS [facility] ED1-14 us Lea Hartley MD LAB BLOOD ORDERABL ES Final Result Performing Organization Address [facility] de Phone Number [address] [address] * Comprehensive metabolic panel (09/11/2019 1:32 PM CDT) [facility] Sodium 137 135 - 145 mmol/L [facility] Potassium, pl 4.0 3.3 - 4.9 mmol/L [facility] Chloride 103 97 - 110 mmol/L [facility] CO2 22 22 - 32 mmol/L [facility] Anion gap 12 2 - 15 mmol/L [facility] BUN 15 8 - 25 mg/dL [facility] Creatinine 0.83 0.60 - 1.10 mg/dL [facility] Glucose 135 70 - 199 mg/dL [facility] Comment: Interpretive Data Fasting [...] interpretive data was last revised 2017. Calcium 9.5 8.5 - 10.3 mg/dL [facility] Bilirubin, total 0.5 0.1 - 1.2 mg/dL [facility] Protein, pl 8.0 6.5 - 8.5 g/dL [facility] Albumin 4.1 3.5 - 5.0 g/dL [facility] Alk phos 84 40 - 130 Units/L [facility] ALT 15 7 - 45 Units/L [facility] AST 19 10 - 45 Units/L [facility] Blood specimen (specimen) 09/11/2019 1:32 PM CDT 09/11/2019 2:10 PM CDT Narrative [facility] - 09/11/2019 2:36 PM CDT THE COLLECTION LOCATION IS us Africa Barker MD LAB BLOOD ORDERABLES Fin al Result [facility] [address] [place] [address] * (ABNORMAL) CBC with auto differential (09/11/2019 1:32 PM CDT) WBC 42.5(H) 3.8 - 9.9 K/cumm [facility] Hgb 14.0 11.9 - 15.5 g/dL [facility] Hct 44.0 35.6 - 45.5 % [facility] Plt 267 150 - 400 K/cumm [facility] MPV 10.7 9.1 - 12.3 fL [facility] RBC 5.17 3.90 - 5.20 M/cumm [facility] MCV 85.1 81.3 - 96.4 fL [facility] MCH 27.1 27.1 - 33.3 pg [facility] MCHC 31.8(L) 32.3 - 35.7 g/dL [facility] RDW CV 14.1 11.1 - 14.9 % [facility] RDW SD 43.8 35.7 - 48.1 fL [facility] NRBC abs 0.00 0.00 - 0.01 K/cumm [facility] Blood specimen (specimen) 09/11/2019 1:32 PM CDT 09/11/2019 2:10 PM CDT Narrative [facility] - 09/11/2019 2:15 PM CDT THE COLLECTION LOCATION IS Africa Barker MD LAB BLOOD ORDERABLES Fin al Result Performing Organization Address City/State/[facility] Co de Phone Number [facility] [address] [place] [address] * XR Chest Pa Lateral 2 Vw (09/11/2019 12:12 PM CDT) Anatomical Region Laterality Modality Body, Chest N/A Computed Radiogr aphy 09/11/2019 12:3 4 PM CDT Impressions 09/11/2019 12:34 PM CDT Comparison exam is a CT scan dated 07/05/2019. The left lung is well-expanded normal. There is some thickening along the right horizontal fissure with what appears to be patchy infiltrate adjacent to the fissure corresponding to the anterior segment of the right upper lobe. ??This was not seen on the recent CT examination. Given the patient's symptoms, this could represent developing pneumonia. ??A follow-up two-view examination of the chest is recommended. Electronically signed by: Dagoberto Foster M.D. Narrative 09/11/2019 12:34 PM CDT EXAMINATION: 2 view chest radiograph Procedure Note Dagoberto Foster MD - 09/11/2019 EXAMINATION: 2 view chest radiograph IMPRESSION: Comparison exam is a CT scan dated 07/05/2019. The left lung is well-expanded normal. There is some thickening along the right horizontal fissure with what appears to be patchy infiltrate adjacent to the fissure corresponding to the anterior segment of the right upper lobe. This was not seen on the recent CT examination. Given the patient's symptoms, this could represent developing pneumonia. A follow-up two-view examination of the chest is recommended. Electronically signed by: Dagoberto Foster M.D. Africa Barker MD IMG XR PROCEDURES Final Result * (ABNORMAL) ECG 12-LEAD (09/11/2019 12:00 PM CDT) Narrative [facility] - 09/11/2019 12:00 PM CDT Marquis Barbosa MD ? 09/11/2019 12:01 PM ECG 12 lead Date/Time: 09/11/2019 12:00 PM Performed by: Marquis Barbosa MD Authorized by: Marquis Barbosa MD Rate: ??ECG rate: ??109 ??ECG rate assessment: tachycardic ?? Rhythm: ??Rhythm: sinus tachycardia ?? Ectopy: ??Ectopy: none ?? QRS: ??QRS axis: ??Left ??QRS intervals: ??Normal Conduction: ??Conduction: normal ?? ST segments: ??ST segments: ??Non-specific T waves: ??T waves: non-specific ?? Q waves: ??Q waves: ??V1 Other findings: ??Other findings: LAE ?? Previous ECG: ??Previous ECG: ??Unavailable Interpretation: ??Interpretation: abnormal ?? Recommended Follow-up: ??Recommended follow up: further workup in the ED ?? Comments: ?? Low risk of ACS Procedure Note Marquis Barbosa MD - 09/11/2019 12:00 PM CDT Procedure ECG 12 lead Date/Time: 09/11/2019 12:00 PM Performed by: Marquis Barbosa MD Authorized by: Marquis Barbosa MD Rate: ECG rate: 109 ECG rate assessment: tachycardic Rhythm: Rhythm: sinus tachycardia Ectopy: Ectopy: none QRS: QRS axis: Left QRS intervals: Normal Conduction: Conduction: normal ST segments: ST segments: Non-specific T waves: T waves: non-specific Q waves: Q waves: V1 Other findings: Other findings: LAE Previous ECG: Previous ECG: Unavailable Interpretation: Interpretation: abnormal Recommended Follow-up: Recommended follow up: further workup in the ED Comments: Low risk of ACS Marquis Barbosa MD 09/11/19 1201 us Marquis Barbosa MD ECG ORDERABLES Final Result Performing Organization Address City/State/[facility] Co ia Phone Number [facility] documented in this encounter Visit Diagnoses Diagnosis HCAP (healthcare-associated pneumonia)- Primary Pneumonia due to infectious organism, unspecified laterality, unspecified part of lung Chronic obstructive pulmonary disease, unspecified COPD type (HCC) Hospital-acquired pneumonia Pneumonia, organism unspecified Hospital-acquired pneumonia Pneumonia, organism unspecified Hypotension Unspecified hypotension Elevated troponin Other abnormal blood chemistry COPD (chronic obstructive pulmonary disease) (HCC) Chronic airway obstruction, not elsewhere classified documented in this encounter Administered Medications Inactive Administered Medications - up to 3 most recent administrations Medication Order MAR Action Action Date Dose Rate Site acetaminophen (TYLENOL) tablet 1,000 mg 1,000 mg, oral, Once, On Wed09/11/19 at 1302, For 1 dose Given 09/11/2019 1:53 PM CDT 1,000 mg acetaminophen (TYLENOL) tablet 1,000 mg 1,000 mg, oral, Every 6 hours PRN, 1st line for pain, fever, fever greater than 38.3 C, Starting on Wed09/13/19 at 0145, Indications: Fever, PainIndications:Fever,Pain Given 09/15/2019 9:48 AM CDT 1,000 mg Given 09/15/2019 2:05 AM CDT 1,000 mg Given 09/14/2019 8:53 PM CDT 1,000 mg acetaminophen (TYLENOL) tablet 325 mg 325 mg, oral, Once, On Wed09/13/19 at 0045, For 1 dose Given 09/13/2019 12:25 AM CDT 325 mg acetaminophen (TYLENOL) tablet 650 mg 650 mg, oral, Every 4 hours PRN, 1st line for pain, fever, fever greater than 38.3 C, Starting on Wed09/11/19 at 1957, Indications: Fever, PainIndications:Fever,Pain Given 09/12/2019 11:36 PM CDT 650 mg Given 09/12/2019 4:01 PM CDT 650 mg Given 09/11/2019 11:19 PM CDT 650 mg albuterol (PROVENTIL,VENTOLIN) 2.5 mg/0.5 mL nebulizer solution 2.5 mg 2.5 mg, nebulization, Every 4 hours PRN (respiratory therapist), wheezing, Starting on Wed09/11/19 at 1957 albuterol (PROVENTIL,VENTOLIN) 2.5 mg/0.5 mL nebulizer solution 2.5 mg 2.5 mg, nebulization, Every 4 hours (respiratory therapist), First dose on Wed09/11/19 at 2100 Given 09/12/2019 9:20 AM CDT 2. 5 mg Given 09/12/2019 4:23 AM CDT 2.5 mg Given 09/12/2019 12:10 AM CDT 2.5 mg albuterol (PROVENTIL,VENTOLIN) 2.5 mg/0.5 mL nebulizer solution 2.5 mg 2.5 mg, nebulization, 4 times daily (respiratory therapist), First dose (after last modification) on Wed09/12/19 at 1700 Given 09/14/2019 11:13 AM CDT 2.5 mg Given 09/13/2019 11:26 PM CDT 2.5 mg Given 09/13/2019 12:20 PM CDT 2.5 mg albuterol (PROVENTIL,VENTOLIN) 2.5 mg/0.5 mL nebulizer solution 2.5 mg 2.5 mg, nebulization, 4 times daily (respiratory therapist), First dose (after last modification) on Wed09/14/19 at 1900 Given 09/15/2019 9:47 AM CDT 2.5 mg albuterol (PROVENTIL,VENTOLIN) 2.5 mg/0.5 mL nebulizer solution 2.5 mg 2.5 mg, nebulization, 4 times daily (respiratory therapist), First dose (after last modification) on Wed09/15/19 at 1200 azithromycin (ZITHROMAX) 500 mg/255 mL in sodium chloride 0.9% (premix) 500 mg 500 mg, intravenous, at 255 mL/hr, Administer over 60 Minutes, Every 24 hours scheduled, First dose on Wed09/11/19 at 1307, Indications: Pneumonia, Community AcquiredIndications:Pneumonia, Community Acquired New Bag 09/12/2019 10:12 AM CDT 500 mg 255 mL/hr New 09/11/2019 1:53 PM CDT 500 mg 255 mL/hr azithromycin (ZITHROMAX) tablet 250 mg 250 mg, oral, Daily, First dose on Wed09/13/19 at 0900, For 3 doses, Indications: COPD ExacerbationIndications:COPD Exacerbation Given 09/15/2019 7:47 AM CDT 250 mg Given 09/14/2019 8:18 AM CDT 250 mg Given 09/13/2019 8:07 AM CDT 250 mg cefepime (MAXIPIME) 2,000 mg/20 mL in sterile water (premix) 2,000 mg 2,000 mg, intravenous, at 40 mL/hr, Administer over 30 Minutes, Every 12 hours scheduled, First dose on Wed09/11/19 at 2030, Indications: Pneumonia, Hospital AcquiredIndications:Pneumonia, Hospital Acquired New Bag 09/13/2019 8:07 AM CDT 2,000 mg 40 mL/hr New 09/12/2019 8:22 PM CDT 2,000 mg 40 mL/hr New 09/12/2019 9:23 AM CDT 2,000 mg 40 mL/hr cefepime (MAXIPIME) 2,000 mg/20 mL in sterile water (premix) 2,000 mg 2,000 mg, intravenous, at 40 mL/hr, Administer over 30 Minutes, Every 12 hours scheduled, First dose (after last modification) on Wed09/13/19 at 2100, For 5 doses, Indications: Pneumonia, Hospital AcquiredIndications:Pneumonia, Hospital Acquired New Bag 09/14/2019 8:18 AM CDT 2,000 mg 40 mL/hr New 09/13/2019 8:27 PM CDT 2,000 mg 40 mL/hr cefepime (MAXIPIME) 2,000 mg/20 mL in sterile water (premix) 2,000 mg 2,000 mg, intravenous, at 40 mL/hr, Administer over 30 Minutes, Every 12 hours scheduled, First dose (after last modification) on Ning 09/14/19 at 2100, For 3 doses, Indications: Pneumonia, Hospital AcquiredIndications:Pneumonia, Hospital Acquired New Bag 09/15/2019 8:00 AM CDT 2,000 mg 40 mL/hr New Bag 09/14/2019 8:53 PM CDT 2,000 mg 40 mL/hr cefTRIAXone (ROCEPHIN) 2,000 mg/20 mL in sterile water (premix) 2,000 mg 2,000 mg, intravenous, at 240 mL/hr, Administer over 5 Minutes, Every 24 hours scheduled, First dose on Wed09/11/19 at 1307, Indications: Pneumonia, Community AcquiredIndications:Pne umonia, Community Acquired New Bag 09/11/2019 1:53 PM CDT 2,000 mg 240 mL/hr enoxaparin (LOVENOX) syringe 40 mg 40 mg, subcutaneous, Daily (for enoxaparin), First dose on Wed09/11/19 at 2100, Indications: Deep Vein Thrombosis PreventionIndications:D eep Vein Thrombosis Prevention Given 09/14/2019 8:53 PM CDT 40 mg Left Upper Abdomen Given 09/13/2019 8:26 PM CDT 40 mg Le ft Lower Abdomen Given 09/12/2019 8:23 PM CDT 40 mg Le ft Upper Abdomen famotidine (PEPCID) tablet 20 mg 20 mg, oral, Daily, First dose on Wed09/12/19 at 1115 Given 09/15/2019 7:47 AM CDT 20 mg Given 09/14/2019 8:18 AM CDT 20 mg Given 09/13/2019 8:07 AM CDT 20 mg fluticasone propionate (FLONASE) 50 mcg/actuation nasal spray 1 spray 1 spray, each nostril, Daily, First dose on Wed09/15/19 at 1200 Given 09/15/2019 12:19 PM CDT 1 spray ibuprofen (ADVIL,MOTRIN) tablet 800 mg 800 mg, oral, Once, On Wed09/11/19 at 1603, For 1 dose, Indications: PainIndications:Pain Given 09/11/2019 4:06 PM CDT 800 mg ipratropium (ATROVENT) 0.02 % nebulizer solution 0.5 mg 0.5 mg, nebulization, Every 4 hours PRN (respiratory therapist), wheezing, shortness of breath, Starting on Wed09/11/19 at 1957 ipratropium (ATROVENT) 0.02 % nebulizer solution 0.5 mg 0.5 mg, nebulization, Every 4 hours while awake (respiratory therapist), First dose on Wed09/11/19 at 2100 Given 09/12/2019 9:20 AM CDT 0.5 mg Given 09/12/2019 4:23 AM CDT 0.5 mg Given 09/12/2019 12:09 AM CDT 0.5 mg ipratropium (ATROVENT) 0.02 % nebulizer solution 0.5 mg 0.5 mg, nebulization, 4 times daily (respiratory therapist), First dose (after last modification) on Wed09/12/19 at 1700 Given 09/14/2019 11:14 AM CDT 0.5 mg Given 09/13/2019 11:27 PM CDT 0.5 mg Given 09/13/2019 12:20 PM CDT 0.5 mg ipratropium (ATROVENT) 0.02 % nebulizer solution 0.5 mg 0.5 mg, nebulization, 4 times daily (respiratory therapist), First dose (after last modification) on Wed09/14/19 at 1900 Given 09/15/2019 9:47 AM CDT 0.5 mg ipratropium (ATROVENT) 0.02 % nebulizer solution 0.5 mg 0.5 mg, nebulization, 4 times daily (respiratory therapist), First dose (after last modification) on Wed09/15/19 at 1200 Lactated Ringer's (LR) bolus 1,000 mL 1,000 mL, intravenous, Once, On Wed09/11/19 at 2230, For 1 dose New Bag 09/11/2019 10:25 PM CDT 1,000 mL Lactated Ringer's (LR) bolus 1,000 mL 1,000 mL, intravenous, at 1,000 mL/hr, Administer over 1 Hours, Once, On Wed09/12/19 at 0630, For 1 dose New Bag 09/12/2019 6:08 AM CDT 1,000 mL 1000 mL/hr levoFLOXacin (LEVAQUIN) tablet 750 mg 750 mg, oral, Every 48 hours, First dose on Wed09/15/19 at 1200, For 2 doses, Give 2 hrs before or 2 hrs after MVI, antacids, or other products containing sucralfate, magnesium, aluminum, iron, or zinc. May be taken without regard to meals., Indications: Pneumonia, Hospital AcquiredIndications:Pneumonia, Hospital Acquired Given 09/15/2019 12:19 PM CDT 750 mg losartan (COZAAR) tablet 50 mg 50 mg, oral, Daily, First dose on Wed09/14/19 at 1045 Given 09/15/2019 7:47 AM CDT 50 mg Given 09/14/2019 12:24 PM CDT 50 mg magnesium sulfate 4 g/100 mL in water (premix) 4 g 4 g, intravenous, Administer over 90 Minutes, Once, On Wed09/13/19 at 0830, For 1 dose, Indications: hypomagnesemiaIndications:hypomag nesemia New Bag 09/13/2019 8:06 AM CDT 4 g potassium chloride 40 mEq/520 mL in sodium chloride 0.9% (premix) 40 mEq 40 mEq, intravenous, at 130 mL/hr, Administer over 4 Hours, Once, On Wed09/14/19 at 0015, For 1 dose, Indications: hypokalemiaIndications:hypokalemi a New Bag 09/14/2019 1:37 AM CDT 40 mEq 130 mL/hr ramelteon (ROZEREM) tablet 8 mg 8 mg, oral, Nightly PRN, sleep, Starting on Wed09/12/19 at 0135, Indications: Sleep-Onset InsomniaIndications:Sleep-Onset Insomnia senna-docusate (PERICOLACE) 8.6-50 mg per tablet 1 tablet 1 tablet, oral, 2 times daily, First dose on Wed09/13/19 at 1045 Given 09/15/2019 8:00 AM CDT 1 tablet Given 09/14/2019 8:53 PM CDT 1 tablet Given 09/14/2019 8:18 AM CDT 1 tablet sodium chloride (OCEAN) 0.65 % nasal spray 1 spray 1 spray, each nostril, Every 2 hours PRN, congestion, rhinitis, other, dryness, Starting on Wed09/15/19 at 1123 Given 09/15/2019 12:19 PM CDT 1 spray sodium chloride 0.9% bolus 1,000 mL 1,000 mL, intravenous, at 1,000 mL/hr, Administer over 1 Hours, Once, On Wed09/11/19 at 1302, For 1 dose New Bag 09/11/2019 1:59 PM CDT 1,000 mL 1000 mL/hr sodium chloride 0.9% bolus 1,000 mL 1,000 mL, intravenous, at 500 mL/hr, Administer over 2 Hours, Once, On Wed09/11/19 at 1755, For 1 dose New Bag 09/11/2019 6:01 PM CDT 1,000 mL 500 mL/hr sodium chloride 0.9% flush 0.5-20 mL 0.5-20 mL, intra-catheter, Every 8 hours scheduled, First dose on Wed09/11/19 at 2200, Flush volume based on line type and size. Given 09/15/2019 5:40 AM CDT 10 mL Given 09/14/2019 8:53 PM CDT 10 mL Given 09/14/2019 12:24 PM CDT 10 mL vancomycin 1,000 mg/200 mL in dextrose 5% (premix) 1,000 mg 1,000 mg, intravenous, Administer over 60 Minutes, Once, On Wed09/11/19 at 1531, For 1 dose, Indications: SepsisIndications:Sepsis New Bag 09/11/2019 4:06 PM CDT 1,000 mg vancomycin 1,000 mg/200 mL in dextrose 5% (premix) 1,000 mg 1,000 mg, intravenous, Administer over 60 Minutes, Every 24 hours, First dose (after last modification) on Wed09/12/19 at 1600, Indications: SepsisIndications:Sepsis New Bag 09/12/2019 3:57 PM CDT 1,000 mg vancomycin 1,000 mg/200 mL in dextrose 5% (premix) 1,000 mg 1,000 mg, intravenous, Administer over 60 Minutes, Every 12 hours, First dose (after last modification) on Wed09/13/19 at 1745, Indications: SepsisIndications:Sepsis New Bag 09/14/2019 5:45 AM CDT 1,000 mg New Bag 09/13/2019 5:52 PM CDT 1,000 mg documented in this encounter Discontinued Medications Medication Sig Discontinue Reason Start Date End Da te losartan-hydroCHLOROth iazide (HYZAAR) 50-12.5 mg per tablet Take 1 tablet by mouth daily Stop Taking at Discharge 09/15/2019 documented as of this encounter Historical Medications * This list may reflect changes made after this encounter. albuterol HFA (PROVENTIL HFA,VENTOLIN HFA,PROAIR HFA) 90 mcg/actuation inhaler Take 2 puffs by mouth 4 (four) times a day losartan-hydroCHL OROthiazide (HYZAAR) 50-12.5 mg per tablet Take 1 tablet by mouth daily 09/15/2019 added in this encounter Active and Recently Administered Medications Times are shown in CDT. Scheduled Medication Order 09/13/2019 09/14/2019 09/15/2019 acetaminophen (TYLENOL) tablet 325 mg (COMPLETED) 325 mg, oral, Once, On Wed09/13/19 at 0045, For 1 dose 0025 (Given - Provider: Garth Rangel, RN) albuterol (PROVENTIL,VENTOLIN) 2.5 mg/0.5 mL nebulizer solution 2.5 mg (CANCELED) 2.5 mg, nebulization, 4 times daily (respiratory therapist), First dose (after last modification) on Wed09/12/19 at 1700 0516 (Given - Provider: Johnny Jean-Baptiste, COMMUNITY DEVELOPMENT TECHNICIAN)1220 (Given - Provider: Robi Brady, SUSY)1749 (Not Given - Provider: Robi Brady, SUSY - Reason: Patient/family refused)2326 (Given - Provider: Sasha Hook, SUSY) 0500 (Due)1113 (Given - Provider: Ravin Mathew, COMMUNITY DEVELOPMENT TECHNICIAN)1700 (Not Given - Provider: Ravin Mathew, SUSY - Reason: Patient not available) albuterol (PROVENTIL,VENTOLIN) 2.5 mg/0.5 mL nebulizer solution 2.5 mg (CANCELED) 2.5 mg, nebulization, 4 times daily (respiratory therapist), First dose (after last modification) on Wed09/14/19 at 1900 2005 (Not Given - Provider: Robi Jasso, SUSY - Reason: Patient not available) 0947 (Given - Provider: Loy Garcia, SUSY) albuterol (PROVENTIL,VENTOLIN) 2.5 mg/0.5 mL nebulizer solution 2.5 mg(Linked Group 1) 2.5 mg, nebulization, 4 times daily (respiratory therapist), First dose (after last modification) on Wed09/15/19 at 1200 1239 (Not Given - Provider: Loy Garcia, SUSY - Reason: Patient/family refused) azithromycin (ZITHROMAX) tablet 250 mg (COMPLETED) 250 mg, oral, Daily, First dose on Wed09/13/19 at 0900, For 3 doses, Indications: COPD Exacerbation 0807 (Given - Provider: Yary Jaffe RN) 0818 (Given - Provider: Yary Jaffe RN) 0747 (Given - Provider: Geovany Heath RN) cefepime (MAXIPIME) 2,000 mg/20 mL in sterile water (premix) 2,000 mg (CANCELED) 2,000 mg, intravenous, at 40 mL/hr, Administer over 30 Minutes, Every 12 hours scheduled, First dose on Wed09/11/19 at 2030, Indications: Pneumonia, Hospital Acquired 08 (New Bag - Provider: Yary Jaffe RN) cefepime (MAXIPIME) 2,000 mg/20 mL in sterile water (premix) 2,000 mg (CANCELED) 2,000 mg, intravenous, at 40 mL/hr, Administer over 30 Minutes, Every 12 hours scheduled, First dose (after last modification) on Wed09/13/19 at 2100, For 5 doses, Indications: Pneumonia, Hospital Acquired 2026 (New Bag - Provider: Lisseth Rock RN) 08 (New Bag - Provider: Yary Jaffe RN) cefepime (MAXIPIME) 2,000 mg/20 mL in sterile water (premix) 2,000 mg (CANCELED) 2,000 mg, intravenous, at 40 mL/hr, Administer over 30 Minutes, Every 12 hours scheduled, First dose (after last modification) on Wed09/14/19 at 2100, For 3 doses, Indications: Pneumonia, Hospital Acquired 2052 (New Bag - Provider: Sasha Anaya RN) 0800 (New Bag - Provider: Geovany Heath RN) enoxaparin (LOVENOX) syringe 40 mg 40 mg, subcutaneous, Daily (for enoxaparin), First dose on Wed09/11/19 at 2100, Indications: Deep Vein Thrombosis Prevention 2025 (Given - Provider: Lisseth Rock, ROD) 2052 (Given - Provider: Sasha Anaya RN) famotidine (PEPCID) tablet 20 mg 20 mg, oral, Daily, First dose on Wed09/12/19 at 1115 0807 (Given - Provider: Yary Jaffe, ROD) 0818 (Given - Provider: Yary Jaffe RN) 0747 (Given - Provider: Geovany Heath RN) fluticasone propionate (FLONASE) 50 mcg/actuation nasal spray 1 spray 1 spray, each nostril, Daily, First dose on Wed09/15/19 at 1200 1219 (Given - Provider: Geovany Heath RN) ipratropium (ATROVENT) 0.02 % nebulizer solution 0.5 mg (CANCELED) 0.5 mg, nebulization, 4 times daily (respiratory therapist), First dose (after last modification) on Wed09/12/19 at 1700 0516 (Given - Provider: Johnny Jean-Baptiste, COMMUNITY DEVELOPMENT TECHNICIAN)1220 (Given - Provider: Robi Brady, SUSY)1749 (Not Given - Provider: Robi Brady, SUSY - Reason: Patient/family refused)2327 (Given - Provider: Sasha Hook, SUSY) 0500 (Due)1114 (Given - Provider: Ravin Mathew, SUSY)1700 (Not Given - Provider: Ravin Mathew, SUSY - Reason: Patient not available) ipratropium (ATROVENT) 0.02 % nebulizer solution 0.5 mg (CANCELED) 0.5 mg, nebulization, 4 times daily (respiratory therapist), First dose (after last modification) on Wed09/14/19 at 1900 2005 (Not Given - Provider: Robi Jasso, SUSY - Reason: Patient not available) 0947 (Given - Provider: Loy Garcia, SUSY) ipratropium (ATROVENT) 0.02 % nebulizer solution 0.5 mg(Linked Group 1) 0.5 mg, nebulization, 4 times daily (respiratory therapist), First dose (after last modification) on Wed09/15/19 at 1200 1240 (Not Given - Provider: Loy Garcia, COMMUNITY DEVELOPMENT TECHNICIAN - Reason: Patient/family refused) levoFLOXacin (LEVAQUIN) tablet 750 mg 750 mg, oral, Every 48 hours, First dose on Wed09/15/19 at 1200, For 2 doses, Give 2 hrs before or 2 hrs after MVI, antacids, or other products containing sucralfate, magnesium, aluminum, iron, or zinc. May be taken without regard to meals., Indications: Pneumonia, Hospital Acquired 1219 (Given - Provider: Geovany Heath RN) losartan (COZAAR) tablet 50 mg 50 mg, oral, Daily, First dose on Wed09/14/19 at 1045 1224 (Given - Provider: Yary Jaffe RN) 0747 (Given - Provider: Geovany Heath RN) magnesium sulfate 4 g/100 mL in water (premix) 4 g (COMPLETED) 4 g, intravenous, Administer over 90 Minutes, Once, On Wed09/13/19 at 0830, For 1 dose, Indications: hypomagnesemia 0806 (New Bag - Provider: Yary Jaffe RN) potassium chloride 40 mEq/520 mL in sodium chloride 0.9% (premix) 40 mEq (COMPLETED) 40 mEq, intravenous, at 130 mL/hr, Administer over 4 Hours, Once, On Wed09/14/19 at 0015, For 1 dose, Indications: hypokalemia 0137 (New Bag - Provider: Lisseth Rock, ROD) senna-docusate (PERICOLACE) 8.6-50 mg per tablet 1 tablet 1 tablet, oral, 2 times daily, First dose on Wed09/13/19 at 1045 1457 (Not Given - Provider: Yary Jaffe RN - Reason: Patient/family refused)2026 (Not Given - Provider: Lisseth Rock RN - Reason: Patient/family refused) 0818 (Given - Provider: Yary Jaffe RN)2052 (Given - Provider: Sasha Anaya RN) 0800 (Given - Provider: Geovany Heath RN) sodium chloride 0.9% flush 0.5-20 mL 0.5-20 mL, intra-catheter, Every 8 hours scheduled, First dose on Wed09/11/19 at 2200, Flush volume based on line type and size. 0524 (Given - Provider: Garth Rangel RN)1358 (Given - Provider: Yary Jaffe RN)2027 (Given - Provider: Lisseth Rock RN) 0545 (Given - Provider: Lisseth Rock RN)1224 (Given - Provider: Yary Jaffe RN)2052 (Given - Provider: Sasha Anaya RN) 0540 (Given - Provider: Sasha Anaya RN)1400 (Due) vancomycin 1,000 mg/200 mL in dextrose 5% (premix) 1,000 mg (CANCELED) 1,000 mg, intravenous, Administer over 60 Minutes, Every 12 hours, First dose (after last modification) on Wed09/13/19 at 1745, Indications: Sepsis 1752 (New Bag - Provider: Yary Jaffe RN) 0545 (New Bag - Provider: Lisseth Rock RN) PRN Medication Order 09/13/2019 09/14/2019 09/15/2019 acetaminophen (TYLENOL) tablet 1,000 mg 1,000 mg, oral, Every 6 hours PRN, 1st line for pain, fever, fever greater than 38.3 C, Starting on Wed09/13/19 at 0145, Indications: Fever, Pain 0807 (Given - Provider: Yary Jaffe RN)1719 (Given - Provider: Yary Jaffe RN)2319 (Given - Provider: Lisseth Rock RN) 0558 (Given - Provider: Lisseth Rock RN)1148 (Given - Provider: Yary Jaffe RN)2052 (Given - Provider: Sasha Anaay RN) 0205 (Given - Provider: Sasha Anaya RN)0948 (Given - Provider: Geovany Heath RN) albuterol (PROVENTIL,VENTOLIN) 2.5 mg/0.5 mL nebulizer solution 2.5 mg(Linked Group 2) 2.5 mg, nebulization, Every 4 hours PRN (respiratory therapist), wheezing, Starting on Wed09/11/19 at 1957 ipratropium (ATROVENT) 0.02 % nebulizer solution 0.5 mg(Linked Group 2) 0.5 mg, nebulization, Every 4 hours PRN (respiratory therapist), wheezing, shortness of breath, Starting on Wed09/11/19 at 1957 ramelteon (ROZEREM) tablet 8 mg 8 mg, oral, Nightly PRN, sleep, Starting on Wed09/12/19 at 0135, Indications: Sleep-Onset Insomnia sodium chloride (OCEAN) 0.65 % nasal spray 1 spray 1 spray, each nostril, Every 2 hours PRN, congestion, rhinitis, other, dryness, Starting on Wed09/15/19 at 1123 1219 (Given - Provider: Geovany Heath RN) sodium chloride 0.9% flush 0.5-20 mL 0.5-20 mL, intra-catheter, As needed, line care, Starting on Wed09/11/19 at 1957, Flush volume based on line type and size. Flush before and after each use. Linked Groups Order Group 1: albuterol (PROVENTIL,VENTOLIN) 2.5 mg/0.5 mL nebulizer solution 2.5 mgJump to med 2.5 mg, nebulization, 4 times daily (respiratory therapist), First dose (after last modification) on Wed09/15/19 at 1200 And ipratropium (ATROVENT) 0.02 % nebulizer solution 0.5 mgJump to med 0.5 mg, nebulization, 4 times daily (respiratory therapist), First dose (after last modification) on Wed09/15/19 at 1200 Group 2: albuterol (PROVENTIL,VENTOLIN) 2.5 mg/0.5 mL nebulizer solution 2.5 mgJump to med 2.5 mg, nebulization, Every 4 hours PRN (respiratory therapist), wheezing, Starting on 09/11/19 at 1957 And ipratropium (ATROVENT) 0.02 % nebulizer solution 0.5 mgJump to med 0.5 mg, nebulization, Every 4 hours PRN (respiratory therapist), wheezing, shortness of breath, Starting on 09/11/19 at 1957 documented in this encounter Orders Medications Ordered That Prince ht Not Have Been Administered Count Last Ordered Date First Ordered Date albuterol (PROVENTIL,VENTOLI N) 2.5 mg/0.5 mL nebulizer solution 2.5 mg 2 09/15/2019 09/11/2019 ipratropium (ATROVENT) 0.02 % nebulizer solution 0.5 mg 2 09/15/2019 09/11/2019 vancomycin 1,000 mg/200 mL i n dextrose 5% (premix) 1,000 mg 2 09/13/2019 09/11/2019 dextrose (D10W) 10% bolus 250 mL 1 09/12/20 19 dextrose (GLUTOSE) 40 % gel 15 g 1 09/12/20 19 glucagon injection 1 mg 1 09/12/2019 insulin lispro (HumaLOG) inj ection 1-3 Units 1 09/12/2019 ramelteon (ROZEREM) tablet 8 mg 1 9 nicotine polacrilex (NICORETTE) gum 4 mg 1 09/11/2019 sodium chloride 0.9% flush 0.5-20 mL 1 08/23 Lab Orders Without Results Count Last Ordered D ate First Ordered Date POCT GLUCOSE DEVICE 9 09/14/2019 09/13/20 19 TROPONIN I 1 09/13/2019 LACTATE DEHYDROGENASE 1 09/11/2019 POCT LACTATE - DEVICE 2 09/11/2019 EKG Orders Without Results Count Last Ordered D ate First Ordered Date ECG 12-LEAD 1 09/11/2019 Diet Count Last Ordered Date First Orde red Date ADULT DISCHARGE DIET 1 09/15/2019 Nursing Count Last Ordered Date First Orde red Date DISCHARGE ACTIVITY 1 09/15/2019 CARDIO RESPIRATORY MONITORING 1 09/11/2019 CONTINUOUS PULSE OXIMETRY 1 09/11/2019 NURSING COMMUNICATION 2 09/11/2019 IV Count Last Ordered Date First Orde red Date SALINE LOCK IV 1 09/11/2019 ADT Patient Update Count Last Ordered Date Firs t Ordered Date ED IP DECISION TO ADMIT 1 09/11/2019 documented in this encounter Care Teams Executive Staff Assistant Relationship Specialty Start Date End Date Ginny Cordero PA PCP - General 07/04/19 09/11/19 Roxana Graham NP PCP - General Nurse Practitioner 09/12/19 09/12/19 Ginny Cordero PA PCP - General 09/13/19 06/30/21 documented as of this encounter
--- OUTSIDE RECORDS SUMMARY | 2024-12-08 03:48 | XMS_ITS | Encounter Summary ---
Author Organization [facility] Healthcare Address [address] [place] [address] Care Team Providers Care Supervisor Inspecting Name Role Phone Ginny Corderofrancia MATTHEW Primary Care Pr ovider Encounter Details Date Type Department Care Team (Latest Contact Info) Description 09/11/2019 12:05 PM CDT - 09/11/2019 12:42 PM CDT Hospital Encounter [facility] Radiology [address] [place] [address] Marquis Barbosa MD [address] [facility] [address] [place] [address] Discharge Disposition: Discharge to home or self care Social History Tobacco Use Types Packs/Day Years Used Date Smoking Tobacco: Never Assessed Comments Unknown Sex and Gender Information Value Date Recorded Sex Assigned at Not on file 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 Gender Identity Not on file Sexual Orientation Not on file documented as of this encounter Medications at Time of Discharge levoFLOXacin (LEVAQUIN) 750 mg tabletIndication s:Pneumonia, Hospital [...] 09/15/2019 0 documented as of this encounter Discharge Disposition Disposition Code Departure Means Destination Discharge to home or self care documented in this encounter Plan of Treatment Not on file documented as of this encounter Procedures Procedure Name Priority Date/Time Associated Diagnosis Comments XR CHEST PA LATERAL 2 VIEWS ED 09/11/2019 12:12 PM CDT documented in this encounter Results * XR Chest Pa Lateral 2 Vw [...] recommended. Electronically signed by: Dagoberto Foster M.D. us [place] Barker MD IMG XR PROCEDURES Final Result documented in this encounter Visit Diagnoses Not on filedocumented in this encounter Care Teams Supervisor Inspecting Relationship Specialty Start Date End Date Ginny Cordero PA PCP - General 07/04/19 09/11/19 documented as of this encounter
--- OUTSIDE RECORDS SUMMARY | 2024-12-08 03:48 | XMS_ITS | Encounter Summary ---
Author Organization [facility] Healthcare Address [address] [place] [address] Care Team Providers Care Armored Transport Service Manager Name Role Phone Ginny Corderofrancia MATTHEW Primary Care Pr ovider Arturo Nunez MD Unavailable [phone] Encounter Details Date Type Department Care Team (Latest Contact Info) Description 04/15/2020 2:47 AM CDT - 04/17/2020 1:45 PM CDT Hospital Encounter [facility] [address] [place] [address] Warren Door Trimmer, [address] [place], [place] [id number] Arturo Nunez MD [address] [place] [address] ST elevation myocardial infarction involving right coronary artery (CMS/HCC) (Primary Dx) Discharge Disposition: Discharge to home or self care Social History Tobacco Use Types Packs/Day Years Used Date Smoking Tobacco: Every Day Cigarettes 0.1 44 Started: 11/22/1980 Smokeless Tobacco: Never Tobacco Cessation:Ready to Q uit: Yes; Counseling Given: Yes Comments Unknown Sex and Gender Information Value Date Recorded Sex Assigned at Not on file Legal Sex 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 Gender Identity Not on file Sexual Orientation Not on file documented as of this encounter Last Filed Vital Signs Vital Sign Reading Time Taken Comments Blood Pressure 116/66 04/17/2020 9:00 AM CDT Pulse 70 04/17/2020 9:00 AM CDT Temperature 36.6 ??C (97.8 ??F) 04/17/2020 12:00 PM C DT Respiratory Rate 16 04/17/2020 9:00 AM CDT Oxygen Saturation 100% 04/15/2020 5:15 AM CDT Inhaled Oxygen Concentration - - Weight 73.5 kg (162 lb 0.6 oz) 04/15/2020 5:15 A M CDT Height 152.4 cm (5') 04/16/2020 10:55 AM CDT Body Mass Index 31.65 04/15/2020 5:15 AM CDT documented in this encounter Discharge Diagnoses Diagnosis ST elevation (STEMI) myocardial infarction involving other coronary artery of inferior wall (HCC) - ST ELEVATION (STEMI) MYOCARDIAL INFARCTION INVOLVING OTHER CORONARY ARTERY OF INFERIOR WALL Other intraoperative complications of the circulatory system, not elsewhere classified - OTHER INTRAOPERATIVE COMPLICATIONS OF THE CIRCULATORY SYSTEM, NOT ELSEWHERE CLASSIFIED Atherosclerotic heart disease of douglas coronary artery without angina pectoris - ATHEROSCLEROTIC HEART DISEASE OF [place] CORONARY ARTERY WITHOUT ANGINA PECTORIS Atherosclerosis of other arteries - ATHEROSCLEROSIS OF OTHER ARTERIES Other hypotension - OTHER HYPOTENSION Chronic obstructive pulmonary disease, unspecified (HCC) - CHRONIC OBSTRUCTIVE PULMONARY DISEASE, UNSPECIFIED Personal history of malignant neoplasm of other organs and systems - PERSONAL HISTORY OF MALIGNANT NEOPLASM OF OTHER ORGANS AND SYSTEMS Presence of artificial knee joint, bilateral - PRESENCE OF ARTIFICIAL KNEE JOINT, BILATERAL Solitary pulmonary nodule - SOLITARY PULMONARY NODULE Other middle or intermediate school principal (current) drug therapy - OTHER OTR OWNER OPERATOR (CURRENT) DRUG THERAPY Dorsalgia, unspecified - DORSALGIA, UNSPECIFIED Bradycardia, unspecified - BRADYCARDIA, UNSPECIFIED Pure hypercholesterolemia, unspecified - PURE HYPERCHOLESTEROLEMIA, UNSPECIFIED Nicotine dependence, unspecified, uncomplicated - NICOTINE DEPENDENCE, UNSPECIFIED, UNCOMPLICATED Other chronic pain - OTHER CHRONIC PAIN Essential (primary) hypertension - ESSENTIAL (PRIMARY) HYPERTENSION Unspecified essential hypertension Nausea - NAUSEA Nausea alone documented in this encounter Discharge Summaries * Elaina Mitchell NP - 04/17/2020 11:14 AM CDT Inpatient Discharge Summary BRIEF OVERVIEW Admitting Provider: Arturo Nunez MD Discharge Provider: Arturo Nunez MD Primary Care Physician at Discharge: TIFF Flores [phone] Admission Date: 04/15/2020 Discharge Date: 04/17/2020 Admission Location: [facility] Problems/Diagnoses: Active Problems: No Active Problems: There are no active problems currently on the Problem List. Please update the Problem List and refresh. Resolved Problems: No resolved hospital problems. DETAILS OF HOSPITAL STAY Presenting Problem/History of Present Illness: Patient is a 79 year old female who presented to [facility] ED in [place], [place] for chest pain and found to have an inferior wall ST- elevation SD. Patient was transferred to [facility] for emergent cardiac cath. Hospital Course: Patient underwent emergent cardiac cath with 2 ADAM placed to proximal to mid RCA AV groove and the PDA. Her EF was 55%.She tolerated the procedure well. No complications noted. Please see Dr Nunez'[email or web address] report for full details. Patient was monitored closely in the ICU. No arrhythmias noted on telemetry. No complications in the 48 hours post cath. Patient has ambulated in room without difficulty. Heart rate is bradycardic and patient is unable to tolerate beta- massimo at this time. Operative Procedures Performed: Procedure(s): PCI AMI REVASCULARIZATION SINGLE VESSEL (W ADAM) C9606 - [id number] INSERT TEMPORARY PACEMAKER (PPM) SINGLE LEAD 23407 LEFT HEART CATHETERIZATION WITH CORONARY ANGIOGRAPHY AND WITH OR WITHOUT LEFT VENTRICULOGRAM 92956 Discharge Details Physical Exam at Discharge: Discharge [...] Internal Medicine, Interventional Cardiology Relationship: Consulting Physician José MURPHY [facility] KATHERINE [facility] [address] Next Steps: Follow up Instructions: Follow up in 2 weeks. [phone] Questions: To provider: ARTURO NUNEZ Instructions for follow-up (appointment date and time): Follow up in 2 weeks. [phone] Cosigned by Arturo Nunez MD at 04/27/2020 [...] by mouth daily 30 tablet 11 04/18/2020 01/01/2022 atorvastatin (LIPITOR) 40 mg tablet [...] by mouth daily 30 tablet 04/18/2020 2 documented in this encounter Discharge Disposition Disposition Code Departure Means Destination Discharge to home or self care documented in this encounter Progress Notes * Arturo Nunez MD - 04/16/2020 9:52 AM CDT [facility]- Cardiology Daily Progress - [facility] SUBJECTIVE: Ms. Neri sustained an inferior wall SD with ST elevation over the weekend she [...] (LOVENOX) syringe 40 mg 40 mg subcutaneous Daily-2100 ??? famotidine (PEPCID) injection 20 mg 20 [...] Rate: 55 bpm RR Interval: 1073 msec VT Interval: 148 msec QRS Duration: 127 msec QT Interval: 457 msec QTC Interval: 447 msec P-R-T Wheatland: 58 - -34 - -36 degrees SINUS BRADYCARDIA WITH OCCASIONAL VENTRICULAR PREMATURE COMPLEXES MARKED LEFT AXIS DEVIATION [QRS AXIS < -30] MODERATE INTRAVENTRICULAR CONDUCTION DELAY [110+ ms QRS DURATION] T WAVE ABN CONSIDER INFERIOR ISCHEMIA ABNORMAL ECG Electronically Signed By: Robi Garcia MD, [facility] Results for orders placed or performed during the hospital encounter of 09/11/19 ECG 12 lead Result Value Ref Range Ventricular Rate EKG/Min 84 BPM Atrial Rate 84 BPM VT-Interval (MSEC) 100 ms QRS-Interval (MSEC) 120 ms QT-Interval (MSEC) 396 ms QTc 467 ms P Wheatland 67 degrees R Wheatland -30 degrees T Wheat[place] 3 degrees Diagnosis Sinus rhythm with short VT Possible Left atrial enlargement Left axis deviation Incomplete left bundle branch block Abnormal ECG No previous ECGs available Confirmed by MONICA VIERA M.D ([id number]) on 09/12/2019 2:18:13 PM ASSESSMENT/PLAN: 1. Inferior wall ST-elevation SD-patient had stenting of the right coronary artery [...] pain with oral medications. Arturo Nunez MD, [facility] Batch Still Operator [phone] [facility] 04/16/2020 9:52 AM * [...] 04/15/2020 3:00 AM CDT Cardiology H&P - [facility] - Arturo Nunez MD [facility] Name: Ni Neri Patient's Primary Care Physician: TIFF Flores Referring Physician: No ref. provider found Age: 79 y.o. Race: White Sex: female Chief Complaint/History of Present Illness Patient was admitted to [facility] on 04/15/2020 with No chief complaint on file. Patient is 79-year-old female the here to the hospital with a transfer from [facility] where she was diagnosed with an inferior wall ST- elevation SD. Patient has a history of smokinghas and history of prior lung nodule for which she has been followed for prior PCP. She recently has been discharged from [facility] with a pneumonia. In review of the records that are noted in epic patient has a history of COPD denies a history of diabetes or prior myocardial infarction andhas a history of hypertension. He had recently been admitted to the hospital in [place] back in May of 2019 with sepsis. Discussion the patient she describes the chest pain occurred suddenly roughlyabout the 810 severity associated with shortness of breath. She was treated with aspirin and heparin and nitro at the [facility] Room and then transferred by ground to the [facility] product scientist. Arrival Vitals Temp Pulse Resp BP SpO2 [...] file Gets together: Not on file Attends samaritan service: Not on file Active member of [...] FOR CURRENT ENCOUNTER: SCHEDULED MEDICATIONS: No current [facility]-ordered facility-administered medications on file. ?? CONTINUOUS MEDICATIONS: No current [facility]-ordered facility-administered medications on file. ?? PRN MEDICATIONS: [...] EKG/Min 84 BPM Atrial Rate 84 BPM VT-Interval (MSEC) 100 ms QRS-Interval (MSEC) 120 ms QT-Interval (MSEC) 396 ms QTc 467 ms P Wheat[place] 67 degrees R Wheat[place] -30 degrees T Wheat[place] 3 degrees Diagnosis Sinus rhythm with short VT Possible Left atrial enlargement Left axis deviation [...] List and refresh. 1. Inferior wall ST-elevation SD-patient will undergo cardiac catheterization she apparently seems [...] don't hesitate to call. Arturo Nunez MD, [facility] Batch Still Operator [facility] ([facility]) [phone] 04/15/2020 3:00 AM CC: [facility] [phone] documented in this encounter Procedure Notes * Micaela Burns MD - 04/15/2020 10:15 PM CDTAssociated Order(s): Critical Care Post-Procedure Diagnose(s): ST elevation myocardial infarction involving right coronary artery (HCC) Critical Care Performed by: Micaela Burns MD Authorized by: Micaela Burns MD CRITICAL CARE: Team: [facility] Shift: PM Level of Billing: Critical [...] plan with the ICU team and other medical/art sales consultant staff, making frequent assessments and [...] volumen status Initiation/management of anti-platelet agents * Arturo Nunez MD - 04/15/2020 4:34 AM CDTProcedure(s): CARDIAC CATHETERIZATION Pre-Procedure Diagnose(s): Acute SD, inferior wall (CMS/HCC) (HCC) Post-Procedure Diagnose(s): Acute SD, inferior wall (CMS/HCC) (HCC) CARDIAC CATHETERIZATION ARTURO NUNEZ MD, [facility] ([facility]) Ni Neri IP ENCOUNTER: [id number] Date of Procedure: 04/15/2020 BIRTHDATE: 1940 ASPARAGUS BUNCHER: Arturo Nunez MD REFERRING PHYSICIAN: [facility] CARDIOVASCULAR PROCEDURE: 1. Selective coronary [...] compression PREPROCEDURE DIAGNOSES: 1. Patient presents from [facility] where she had demonstrated a ST-elevation inferior wall myocardial infarction. Patient started experiencing substernal chest discomfort earlier this evening and had presented the ER. He has a history of smoking COPD and prior lung mass. She was recently discharged from [facility] with a presentation for pneumonia. The patient [...] and access was obtained with a 6 Belgian sheath was inserted using modified seldinger technique. 5F Jl4 Jr4 and pigtail catheters were used for angiographic imaging which was performed in various angles to delineate vascular anatomy. Seven Belgian sheath was inserted as this was an inferior wall ST-elevation SD and the 100% occlusion of the RCA proximally was noted temporary pacemaker wire was advanced through the 7 Belgian venous sheath that had been placed after [...] on the right coronary artery. A 6 indonesian JR4 guidingcatheter was engaged into the ostium of the RCA. Angiomax was used for anticoagulation during the procedure. Temporary pacemaker wire was already inserted thresholds were checked and pacemaker was set at 50 beats per minute at 5 mA The lesion was wired with a 190cm instructor pilot wire. I ran a Pronto catheter down hoping that that would give us the anabaptism of JARETT 3 flow the Pronto catheter [...] pacing required this was reviewed with the agency sales representative on report 3. Aspirin and Brilinta load 4. Dual anti-platelet therapy for the next 12 months the setting of drug-eluting stents in the RCA vessel. 5. Wean dopamine follow blood pressure with arterial sheath transducer 6. Absolute smoking cessation was recommended 7. Revascularization of the right common iliac as an outpatient 8. Follow-up with [facility] 2-4 weeks Arturo Nunez MD, [facility] Batch Still Operator [phone] [facility] ([facility]) documented in this encounter Consult Notes * [...] was transferred for cardiac catheterization. In the roving tester laboratory she was treated with two stents to [...] RN - 04/15/2020 2:48 AM CDT Bed: CC-C Expected date: Expected time: Means of arrival: Comments: 4443 79 y/o F [place] STEMI 112/76 70 NSR RR 22 324 ASA Nitro infusing Phyllis Mccurdy RN 04/15/20 0248 documented in this encounter Miscellaneous Notes * Plan of Care - Priti Hernandez RN - 04/17/2020 12:48 PM CDT Goals: Clinical Goals for the Shift: Stable vitals Summary: discharge instructions and perscriptions given to pt awaiting daughter to peanut picker denies chest pain or new discomfort [...] Outcome: Progressing * Plan of Care - Felicita Be RN - 04/16/2020 5:47 PM CDT CM called and spoke with patient's daughter, Khadijah Bonilla, , patient lives alone, and is independent, hard headed , per daughter, states went out and cut her own grass, mops her floors andcleans out her own cabinets, patient still drives, uses no device to ambulate, sees a BARGE CAPTAIN, Roxana Graham, and she gets her medications from [facility] [address] In [place], [place], Goal is to return home on [...] being stuck, and okd with Germania Cabrera BARGE CAPTAIN to send to floor with no IV [...] REVASCULARIZATION SINGLE VESSEL (W ADAM) C9606 - [id number] Routine 04/15/2020 5:01 AM CDT TEMPOARY PACING INSERT/REPLACE LEAD Routine 04/15/2020 5:01 AM CDT documented in this encounter Results * eGFR (04/17/2020 5:55 AM CDT) [facility] eGFR 90 mL/min/1.7 3 m2 BILLY GABRIEL Comment: Interpretive Data Reference Interval Normal ?>/= 90 mL/min/1.73m2 Mildly decreased* ? 60 - 89 mL/min/1.73m2 Mildly to moderately decreased ?45 - 59 mL/min/1.73m2 Moderately to severely decreased ??30 - 44 mL/min/1.73m2 Severely decreased ?15 - 29 mL/min/1.73m2 Kidney Failure ?< 15 ??mL/min/1.73m2 *Relative to young adult level If -Montenegrin multiply value by 1.16. Estimated glomerular filtration [...] 04/17/2020 6:02 AM CDT us Denisha Joe BARGE CAPTAIN LAB BLOOD ORDERABLES Final Resu lt BILLY [address] [address] Department [place] [address] * (ABNORMAL) Differential, auto (04/17/2020 5:55 AM CDT) Neutrophil abs 9.5(H) 1.7 - 6.5 K/cumm [facility] Imm gran abs 0.1 0.0 - 0.1 K/cumm [facility] Lymphocyte abs 4.6(H) 0.8 - 3.3 K/cumm [facility] Monocyte abs 1.7(H) 0.2 - 0.8 K/cumm [facility] Eosinophil abs 0.3 0.0 - 0.5 K/cumm [facility] Basophil abs 0.1 0.0 - 0.1 K/cumm [facility] Neutrophil pct 58.5 % [facility] Comment: Interpretive Data Percent cell count reference ranges are not reported, since discordance with absolute values may lead to misinterpretation of CBC data. Current Interpretive Data was last revised on 2018. Imm gran pct 0.9 % [facility] Comment: Interpretive Data Percent cell count reference ranges are not reported, since discordance with absolute values may lead to misinterpretation of CBC data. Current Interpretive Data was last revised on 2018. Lymphocyte pct 28.1 % [facility] Comment: Interpretive Data Percent cell count reference ranges are not reported, since discordance with absolute values may lead to misinterpretation of CBC data. Current Interpretive Data was last revised on 2018. Monocyte pct 10.2 % [facility] Comment: Interpretive Data Percent cell count reference ranges are not reported, since discordance with absolute values may lead to misinterpretation of CBC data. Current Interpretive Data was last revised on 2018. Eosinophil pct 1.9 % [facility] Comment: Interpretive Data Percent cell count reference ranges are not reported, since discordance with absolute values may lead to misinterpretation of CBC data. Current Interpretive Data was last revised on 2018. Basophil pct 0.4 % [facility] Comment: Interpretive Data Percent cell count reference ranges are not reported, since discordance with absolute values may lead to misinterpretation of CBC data. Current Interpretive Data was last revised on 2018. Blood specimen (specimen) 04/17/2020 5:55 AM CDT 04/17/2020 6:13 AM CDT Denisha Joe BARGE CAPTAIN LAB BLOOD ORDERABLES Final Resu lt BILLY [address] [address] Department [place] [address] * (ABNORMAL) Calcium, ionized (04/17/2020 5:55 AM CDT) Ca, ionized, bld 4.41(L) 4.60 - 5.20 mg/dL [facility] Ca, ionized, bld, calc 4.56(L) 4.60 - 5.20 mg/dL [facility] Blood specimen (specimen) 04/17/2020 5:55 AM CDT 04/17/2020 6:02 AM CDT Denisha Joe BARGE CAPTAIN LAB BLOOD ORDERABLES Final Resu lt Performing Organization Address City/[facility]/ZIP Co de Phone Number BILLY GABRIEL [address] [address] Department [place] [address] * (ABNORMAL) Basic metabolic panel (04/17/2020 5:55 AM CDT) Sodium 141 135 - 145 mmol/L [facility] Potassium, pl 4.3 3.3 - 4.9 mmol/L [facility] Chloride 109 97 - 110 mmol/L [facility] CO2 21(L) 22 - 32 mmol/L [facility] Anion gap 11 2 - 15 mmol/L [facility] BUN 13 8 - 25 mg/dL [facility] Creatinine 0.54(L) 0.60 - 1.10 mg/dL [facility] Glucose 111 70 - 199 mg/dL [facility] Comment: Interpretive [...] 2017. Calcium 8.7 8.5 - 10.3 mg/dL [facility] Blood specimen (specimen) 04/17/2020 5:55 AM CDT 04/17/2020 6:02 AM CDT Denisha Joe BARGE CAPTAIN LAB BLOOD ORDERABLES Final Resu lt Performing Organization Address City/[facility]/ZIP Co de Phone Number BILLY GABRIEL [address] [address] Department [place] [address] * (ABNORMAL) CBC with auto differential (04/17/2020 5:55 AM CDT) WBC 16.2(H) 3.8 - 9.9 K/cumm [facility] Hgb 11.4(L) 11.9 - 15.5 g/dL [facility] Hct 36.0 35.6 - 45.5 % [facility] Plt 267 150 - 400 K/cumm [facility] CH MPV 10.7 9.1 - 12.3 fL [facility] RBC 4.01 3.90 - 5.20 M/cumm [facility] CH MCV 89.8 81.3 - 96.4 fL [facility] MCH 28.4 27.1 - 33.3 pg [facility] MCHC 31.7(L) 32.3 - 35.7 g/dL [facility] RDW CV 14.0 11.1 - 14.9 % [facility] CH RDW SD 45.2 35.7 - 48.1 fL [facility] NRBC abs 0.00 0.00 - 0.01 K/cumm [facility] Blood specimen (specimen) 04/17/2020 5:55 AM CDT 04/17/2020 6:13 AM CDT Denisha Joe BARGE CAPTAIN LAB BLOOD ORDERABLES Final Resu lt BILLY GABRIEL [address] [address] [employer] [place], [place] [id number] * POCT glucose (04/17/2020 4:57 AM CDT) Glucose, POC 98 70 - 199 mg/dL [facility] Blood specimen (specimen) 04/17/2020 4:57 AM CDT 04/17/2020 4:57 AM CDT Arturo Nunez MD LAB POCT ORDERABLES - DEVICE Final Result BILLY GABRIEL [address] [address] Department of [employer] [place], [place] [id number] * POCT glucose (04/16/2020 7:59 PM CDT) Glucose, POC 128 70 - 199 mg/dL [facility] Blood specimen (specimen) 04/16/2020 7:59 PM CDT 04/16/2020 7:59 PM CDT Arturo Nunez MD LAB POCT ORDERABLES - DEVICE Final Result Performing Organization Address [facility]/ZIP Co de Phone Number BILLY GABRIEL [address] [facility] [place] [address] * POCT glucose (04/16/2020 8:20 AM CDT) Glucose, POC 110 70 - 199 mg/dL [facility] Blood specimen (specimen) 04/16/2020 8:20 AM CDT 04/16/2020 8:20 AM CDT Arturo Nunez MD LAB POCT ORDERABLES - DEVICE Final Result Performing Organization Address [facility] de Phone Number BILLY GABRIEL [address] [address] Department [place] [address] * eGFR (04/16/2020 8:14 AM CDT) eGFR 84 mL/min/1.7 3 m2 BILLY Comment: Interpretive Data Reference Interval Normal ?>/= 90 mL/min/1.73m2 Mildly decreased* ? 60 - 89 mL/min/1.73m2 Mildly to moderately decreased ?45 - 59 mL/min/1.73m2 Moderately to severely decreased ??30 - 44 mL/min/1.73m2 Severely decreased ?15 - 29 mL/min/1.73m2 Kidney Failure ?< 15 ??mL/min/1.73m2 *Relative to young adult level If -Montenegrin multiply value by 1.16. Estimated glomerular filtration [...] AM CDT 04/16/2020 8:25 AM CDT Alyssa Sanford Dandre DO LAB BLOOD ORDERABLES F inal Result Performing Organization Address [facility]/ZIP Co de Phone Number [facility] [address] [address] Department [place] [address] * Magnesium (04/16/2020 8:14 AM CDT) Magnesium 2.1 1.4 - 2.5 mg/dL [facility] Blood specimen (specimen) 04/16/2020 8:14 AM CDT 04/16/2020 8:25 AM CDT Alyssa Gayleah Dandre DO LAB BLOOD ORDERABLES F inal Result Performing Organization Address [facility] de Phone Number [facility] [address] [address] [employer] [address] * (ABNORMAL) CBC without differential (04/16/2020 8:14 AM CDT) WBC 14.7(H) 3.8 - 9.9 K/cumm [facility] Hgb 11.5(L) 11.9 - 15.5 g/dL [facility] Hct 35.9 35.6 - 45.5 % [facility] Plt 273 150 - 400 K/cumm [facility] MPV 10.6 9.1 - 12.3 fL [facility] RBC 4.04 3.90 - 5.20 M/cumm [facility] MCV 88.9 81.3 - 96.4 fL [facility] MCH 28.5 27.1 - 33.3 pg [facility] MCHC 32.0(L) 32.3 - 35.7 g/dL [facility] CH RDW CV 14.4 11.1 - 14.9 % [facility] CH RDW SD 46.7 35.7 - 48.1 fL [facility] NRBC abs 0.00 0.00 - 0.01 K/cumm [facility] Blood specimen (specimen) 04/16/2020 8:14 AM CDT 04/16/2020 8:25 AM CDT Alyssa Amos DO LAB BLOOD ORDERABLES F inal Result [facility] [address] Department [place] [address] * (ABNORMAL) Basic metabolic panel (04/16/2020 8:14 AM CDT) Sodium 140 135 - 145 mmol/L [facility] Potassium, pl 3.7 3.3 - 4.9 mmol/L [facility] Chloride 107 97 - 110 mmol/L [facility] CO2 24 22 - 32 mmol/L [facility] Anion gap 9 2 - 15 mmol/L [facility] BUN 12 8 - 25 mg/dL [facility] Creatinine 0.68 0.60 - 1.10 mg/dL [facility] Glucose 112 70 - 199 mg/dL [facility] Comment: Interpretive Data Fasting glucose >/= [...] 2017. Calcium 8.3(L) 8.5 - 10.3 mg/dL [facility] Blood specimen (specimen) 04/16/2020 8:14 AM CDT 04/16/2020 8:25 AM CDT Alyssa Amos DO LAB BLOOD ORDERABLES F inal Result BILLY [address] [facility] Department [place] [address] * Critical Care (04/15/2020 10:15 PM CDT) Narrative Micaela Burns MD - 04/15/2020 10:15 PM CDT Micaela Burns MD ? 04/17/2020 12:42 AM Critical Care Performed by: Micaela Burns MD Authorized by: Micaela Burns MD CRITICAL CARE: ??Team: ??CHNE ??Shift: [...] plan with the ICU team and other medical/art sales consultant staff, making frequent assessments and [...] volumen status ?? Initiation/management of anti-platelet agents us Micaela Burns MD IN CLINIC/BEDSIDE ORDERABLE S Final Result * POCT glucose (04/15/2020 8:37 PM CDT) Glucose, POC 105 70 - 199 mg/dL [facility] GABRIEL Blood specimen (specimen) 04/15/2020 8:37 PM CDT 04/15/2020 8:37 PM CDT us Arturo Nunez MD LAB POCT ORDERABLES - DEVICE Final Result Performing Organization Address [facility]/ZIP Co de Phone Number [facility] [address] [facility] [place] [address] * POCT glucose (04/15/2020 5:12 PM CDT) Glucose, POC 101 70 - 199 mg/dL [facility] Blood specimen (specimen) 04/15/2020 5:12 PM CDT 04/15/2020 5:12 PM CDT Arturo Nunez MD LAB POCT ORDERABLES - DEVICE Final Result Performing Organization Address [facility] de Phone Number [facility] [address] [facility] [place] [address] * aPTT (04/15/2020 2:53 PM CDT) aPTT 26 25 - 37 sec [facility] Comment: Interpretive data Heparin therapeutic range: 48-99 seconds Range based on correlation with therapeutic heparin activity range of 0.3-0.7 units/ml. Current interpretive data was last revised on 2019. Blood specimen (specimen) 04/15/2020 2:53 PM CDT 04/15/2020 2:55 PM CDT Alyssa Amos DO LAB BLOOD ORDERABLES F inal Result Performing Organization Address [facility] Co de Phone Number [facility] [address] [facility] [place] [address] * POCT glucose (04/15/2020 12:45 PM CDT) Glucose, POC 126 70 - 199 mg/dL [facility] Blood specimen (specimen) 04/15/2020 12:45 PM CDT 04/15/2020 12:45 PM CDT Arturo Nunez MD LAB POCT ORDERABLES - DEVICE Final Result Performing Organization Address [facility] de Phone Number [facility]ILLY GABRIEL [address] [place] [address] * (ABNORMAL) Troponin T, 6 Hour 5th Gen (04/15/2020 12:42 PM CDT) Troponin T, 6 Hr 5th Gen 1,272(H) 6 - 14 ng/L [facility]ILL[facility] GABRIEL Troponin T, 0-6 Hr Delta Percent 166(C) % [facility] GABRIEL Comment:Critical result call ed to and read back by Ligia Mancera (RN_) on _04/15/2020 13:16:26 CDT to Kimberly Ann _. Blood specimen (specimen) 04/15/2020 12:42 PM CDT 04/15/2020 12:49 PM CDT Alyssa Amos DO LAB BLOOD ORDERABLES F inal Result Performing Organization Address [facility] de Phone Number [facility]ILL[facility] GABRIEL [address] [place] [address] * Lipid panel (04/15/2020 9:38 AM CDT) Cholesterol 135 30 - 199 mg/dL [facility] GABRIEL Comment: Interpretive Data Ages [...] on 2018. Triglycerides 144 <=149 mg/dL [facility] GABRIEL Comment: Interpretive Data Ages [...] on 2018. HDL 49 >=40 mg/dL [facility] Comment: Interpretive Data Ages [...] should be correlated with the lipid results. us Alyssa Amos DO LAB BLOOD ORDERABLES F inal Result [facility] GABRIEL [address] [facility] [place] [address] * (ABNORMAL) Troponin T, 3 Hour 5th Gen (04/15/2020 9:38 AM CDT) Troponin T, 3 Hr 5th Gen 1,232(H) 6 - 14 ng/L [facility]EL Comment: Critical result called to and read back by Ligia Liu on 04/15/2020 10:23:11 CDT to Maryann Zoila pt [facility] Troponin T, 0-3 Hr Delta Percent 157(C) % [facility] G[facility]RIEL Comment: Critical result called to and read back by Ligia Liu on 04/15/2020 10:23:11 CDT to Maryann Cummings pt [facility] Blood specimen (specimen) 04/15/2020 9:38 AM CDT 04/15/2020 9:43 AM CDT us Alyssa Sarah Dandre DO LAB BLOOD ORDERABLES F inal Result [facility] GABRIEL [address] [facility] [place] [address] * XR Chest 1 Vw Portable (04/15/2020 [...] AM CDT) 04/15/2020 9:07 AM CDT Narrative [facility] - 04/15/2020 11:58 AM CDT Vent Rate: 55 bpm RR Interval: 1073 msec VT Interval: 148 msec QRS Duration: 127 msec QT Interval: 457 msec QTC Interval: 447 msec P-R-T [place]: 58 - -34 - -36 degrees SINUS BRADYCARDIA WITH OCCASIONAL VENTRICULAR PREMATURE COMPLEXES MARKED LEFT AXIS DEVIATION ??[QRS AXIS < -30] MODERATE INTRAVENTRICULAR CONDUCTION DELAY ??[110+ ms QRS DURATION] T WAVE ABN CONSIDER INFERIOR ISCHEMIA ABNORMAL ECG Electronically Signed By: Robi Garcia MD, [facility] Alyssa Amos DO ECG ORDERABLES Final Result Performing Organization Address City/[facility] Co de Phone Number [facility] * POCT glucose (04/15/2020 7:30 AM CDT) Glucose, POC 160 70 - 199 mg/dL [facility] Blood specimen (specimen) 04/15/2020 7:30 AM CDT 04/15/2020 7:30 AM CDT Arturo Nunez MD LAB POCT ORDERABLES - DEVICE Final Result Performing Organization Address City/[facility]/ZIP Co de Phone Number [facility] [address] [facility] [place] [address] * (ABNORMAL) Troponin T 5th Gen series (Baseline, 3hr, 6hr) (04/15/2020 6:43 AM CDT) Troponin T, Baseline 5th Gen 479(H) 6 - 14 ng/L [facility] Blood specimen (specimen) 04/15/2020 6:43 AM CDT 04/15/2020 8:27 AM CDT Alyssa Amos DO LAB BLOOD ORDERABLES F inal Result BILLY GABRIEL [address] [place] [address] * eGFR (04/15/2020 6:43 AM CDT) [facility] eGFR 86 mL/min/1.7 3 m2 BILLY GABRIEL Comment: Interpretive Data Reference Interval Normal ?>/= 90 mL/min/1.73m2 Mildly decreased* ? 60 - 89 mL/min/1.73m2 Mildly to moderately decreased ?45 - 59 mL/min/1.73m2 Moderately to severely decreased ??30 - 44 mL/min/1.73m2 Severely decreased ?15 - 29 mL/min/1.73m2 Kidney Failure ?< 15 ??mL/min/1.73m2 *Relative to young adult level If -Montenegrin multiply value by 1.16. Estimated glomerular filtration [...] 6:43 AM CDT 04/15/2020 6:48 AM CDT us Najma Cruz PA LAB BLOOD ORDERABLE S Final Result [facility]ILLY GABRIEL [address] [facility] [place] [address] * (ABNORMAL) CBC without differential (04/15/2020 6:43 AM CDT) WBC 16.1(H) 3.8 - 9.9 K/cumm [facility] Hgb 12.1 11.9 - 15.5 g/dL [facility] Hct 37.4 35.6 - 45.5 % [facility] Plt 329 150 - 400 K/cumm [facility] MPV 10.3 9.1 - 12.3 fL [facility] RBC 4.25 3.90 - 5.20 M/cumm [facility] MCV 88.0 81.3 - 96.4 fL [facility] MCH 28.5 27.1 - 33.3 pg [facility] MCHC 32.4 32.3 - 35.7 g/dL [facility] RDW CV 14.2 11.1 - 14.9 % [facility] RDW SD 45.4 35.7 - 48.1 fL [facility] NRBC abs 0.02(H) 0.00 - 0.01 K/cumm [facility] Blood specimen (specimen) 04/15/2020 6:43 AM CDT 04/15/2020 6:48 AM CDT Najma MATTHEW LAB BLOOD ORDERABLE S Final Result Performing Organization Address City/[facility] Co de Phone Number BILLY [address] [place] [address] * Phosphorus (04/15/2020 6:43 AM CDT) Pathologist [facility] Phosphorus, pl 3.2 2.3 - 4.5 mg/dL [facility] Blood specimen (specimen) 04/15/2020 6:43 AM CDT 04/15/2020 6:48 AM CDT Najma MATTHEW LAB BLOOD ORDERABLE S Final Result BILLY [address] [facility] [place] [address] * Magnesium (04/15/2020 6:43 AM CDT) Pathologist [facility] Magnesium 1.8 1.4 - 2.5 mg/dL [facility] Blood specimen (specimen) 04/15/2020 6:43 AM CDT 04/15/2020 6:48 AM CDT Najma MATTHEW LAB BLOOD [place] [address] [place] [address] * (ABNORMAL) Comprehensive metabolic panel (04/15/2020 6:43 AM CDT) Sodium 138 135 - 145 mmol/L [facility] Potassium, pl 4.0 3.3 - 4.9 mmol/L [facility] Chloride 106 97 - 110 mmol/L [facility] CO2 20(L) 22 - 32 mmol/L [facility] Anion gap 12 2 - 15 mmol/L [facility] BUN 21 8 - 25 mg/dL [facility] Creatinine 0.62 0.60 - 1.10 mg/dL [facility] Glucose 169 70 - 199 mg/dL [facility] Comment: Interpretive Data Fasting glucose >/= 126 [...] PA LAB BLOOD ORDERABLE S Final Result BILLY [address] [place] [address] * POCT glucose (04/15/2020 5:14 AM CDT) Glucose, POC 124 70 - 199 mg/dL [facility] Blood specimen (specimen) 04/15/2020 5:14 AM CDT 04/15/2020 5:14 AM CDT Notinfile Unknown LAB POCT ORDERABLES - DEVICE F inal Result Performing Organization Address [facility] Co de Phone Number BILLY GABRIEL [address] [place] [address] * TEMPOARY PACING INSERT/REPLACE LEAD, PCI AMI REVASCULARIZATION SINGLE VESSEL (W ADAM) C9606 - [id number],LEFT HEART CATHETERIZATION WITH CORONARY ANGIOGRAPHY AND WITH AND WITHOUT LEFT VENTRICULOGRAM (04/15/2020 5:01 AM CDT) Anatomical Region Laterality Modality X-Ray Angiograph y Narrative 04/24/2020 4:09 PM CDT CARDIAC CATHETERIZATION ?? ARTURO NUNEZ MD, [facility] ([facility]) ? Ni Neri ? IP ENCOUNTER: [id number] Date of Procedure: 04/15/2020 ?? BIRTHDATE: 1940 ASPARAGUS BUNCHER: Arturo Nunez MD REFERRING PHYSICIAN: ??[facility] ?? CARDIOVASCULAR PROCEDURE: 1. Selective [...] ? PREPROCEDURE DIAGNOSES: 1. Patient presents from [facility] where she had demonstrated a ST-elevation inferior wall myocardial infarction. ??Patient started experiencing substernal chest discomfort earlier this evening and had presented the ER. ??He has a history of smoking COPD and prior lung mass. ??She was recently discharged from [facility] with a presentation for pneumonia. ??The patient [...] and access was obtained with a 6 Belgian sheath was inserted using modified seldinger technique. 5F Jl4 Jr4 and pigtail ?? catheters were used for angiographic imaging which was performed in various angles to delineate vascular anatomy. 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 A 6 indonesian JR4 guiding catheter was engaged into the ostium of the RCA. Angiomax was used for anticoagulation during the procedure. ?? Temporary pacemaker wire was already ??inserted thresholds were checked and pacemaker was set at 50 beats per minute at 5 mA ?? The lesion was wired with a 190cm instructor pilot wire. ? I ran a Pronto catheter down hoping that that would give us the anabaptism of JARETT 3 flow the Pronto catheter [...] pacing required this was reviewed with the agency sales representative on report 3. Aspirin and Brilinta load 4. Dual anti-platelet therapy for the next 12 months the setting of drug-eluting stents in the RCA vessel. 5. Wean dopamine follow blood pressure with arterial sheath transducer 6. Absolute smoking cessation was recommended 7. Revascularization of the right common iliac as an outpatient 8. Follow-up with [facility] 2-4 weeks ?? Arturo Nunez MD, [facility] Batch Still Operator [phone] [facility]) Arturo Nunez MD CV CARDIAC CATH PROCED URES Final Result documented in this encounter Visit Diagnoses Diagnosis ST elevation myocardial infarction involving right coronary artery (HCC)- Primary documented in this encounter Administered Medications Inactive [...] 2.5 mg, nebulization, Every 4 hours PRN (manager respiratory care), wheezing, Starting on Wed04/15/20 at 0639 aspirin [...] Given 04/16/2020 5:44 PM CDT 40 mg dextrose (D10W) 10% bolus 250 mL [...] for each episode of hypoglycemia., Indications: hypoglycemic disorderIndications:hypoglycemi c disorder dextrose oral liquid liquid 15 g [...] for each episode of hypoglycemia., Indications: hypoglycemic disorderIndications:hypoglycemi c disorder enoxaparin (LOVENOX) syringe 40 mg 40 mg, subcutaneous, Daily (for enoxaparin), First dose on Wed04/15/20 at 2100, Indications: Deep Vein Thrombosis PreventionIndications:Deep Vein Thrombosis Prevention Given 04/16/2020 8:00 PM CDT 40 mg Left Upper Abdomen Given 04/15/2020 8:30 PM CDT 40 mg Le ft Upper Abdomen famotidine (PEPCID) injection 20 mg 20 mg, intravenous, Administer over 2 Minutes, Daily, First dose on Wed04/15/20 at 0900 Given 04/16/2020 9:00 AM CDT 20 mg Given 04/15/2020 8:30 AM CDT 20 mg famotidine (PEPCID) tablet 20 mg 20 mg, oral, Daily, First dose on 5/27/20 at 0900 Given 04/17/2020 8:02 AM CDT [...] for each episode of hypoglycemia., Indications: HypoglycemiaIndications:Hypoglycemia insulin lispro (HumaLOG) injection 1-2 Units 1-2 [...] for NPO status., Indications: Diabetes MellitusIndications:Diabetes Mellitus Lactated Ringer's (LR) bolus 500 mL 500 mL, intravenous, Once, On Wed04/16/20 at 0845, For 1 dose New Bag 04/16/2020 9:00 AM CDT 500 mL magnesium sulfate 2 g/50 mL in water (premix) 2 g 2 g, intravenous, Administer over 60 Minutes, Once, On Wed04/15/20 at 0815, For 1 dose New Bag 04/15/2020 7:55 AM CDT 2 g metoclopramide (REGLAN) injection 5 mg 5 mg, intravenous, Administer over 1 Minutes, Every 8 hours scheduled, First dose on Wed04/15/20 at 0830 Given 04/16/2020 3:23 PM CDT 5 mg Given 04/15/2020 10:00 PM CDT 5 mg Given 04/15/2020 7:55 AM CDT 5 mg ondansetron (ZOFRAN) injection 4 mg 4 mg, intravenous, Administer over 2 Minutes, Every 6 hours PRN, nausea, vomiting, Starting on Wed04/15/20 at 0530, Indications: nausea and vomitingIndications:nausea and vomiting Given 04/15/2020 6:46 AM CDT 4 mg potassium chloride (KAYCIEL) 1.3 mEq/mL oral liquid 40 mEq 40 mEq, oral, Once, On Wed04/16/20 at 1500, For 1 dose, Recommend to dilute each 15 mL with at least 6 ounces of water or juice prior to administration. Given 04/16/2020 3:21 PM CDT 40 mEq ticagrelor (BRILINTA) tablet 90 mg 90 mg, oral, 2 times daily, First dose on Wed04/15/20 at 2100 Given 04/17/2020 8:02 AM CDT 90 mg Given 04/16/2020 8:00 PM CDT 90 mg Given 04/16/2020 9:00 AM CDT 90 mg documented in this encounter Discontinued Medications [...] 0900 (Given - Provider: Khai Murphy, ROD) 0802 (Given - Provider: Priti Hernandez, ROD) atorvastatin (LIPITOR) tablet 40 mg 40 mg, oral, Daily after dinner, First dose on Wed04/16/20 at 1830 1744 (Given - Provider: Khai Murphy, ROD) enoxaparin (LOVENOX) syringe 40 mg 40 mg, subcutaneous, Daily (for enoxaparin), First dose on Wed04/15/20 at 2100, Indications: Deep Vein Thrombosis Prevention 2029 (Given - Provider: Rachell Bolden) 1999 (Given - Provider: Eli Childers RN) famotidine (PEPCID) injection 20 mg (CANCELED) 20 mg, intravenous, Administer over 2 Minutes, Daily, First dose on Wed04/15/20 at 0900 0830 (Given - Provider: Ligia Carlin RN) 0900 (Given - Provider: Khai Murphy, ROD) famotidine (PEPCID) tablet 20 mg 20 mg, oral, Daily, First dose on Wed04/17/20 at 0900 0802 (Given - Provider: Priti Hernandez, ROD) fluticasone propionate (FLONASE) 50 mcg/actuation nasal spray 2 spray 2 spray, each nostril, Daily, First dose on Wed04/15/20 at 0900 1049 (Not Given - Provider: Ligia Carlin RN - Reason: Other) 1235 (Not Given - Provider: Khai Murphy, ROD - Reason: Patient/family refused) 0803 (Given - Provider: Priti Hernandez, ROD) insulin lispro (HumaLOG) injection 1-2 Units 1-2 [...] Bolden) 0900 (Given - Provider: Khai Murphy, RN)1999 (Given - Provider: Eli Childers, ROD) 0802 [...] 0959 (See Alternative - Provider: Khai Murphy RN)2326 (See Alternative - Provider: Eli Childers, ROD) acetaminophen (TYLENOL) suppository 650 mg(Linked Group 1) 650 mg, rectal, Every 4 hours PRN, 1st line for pain, fever, Starting on Wed04/15/20 at 0536, Administer if patient cannot tolerate enteral route., Indications: Fever, Pain 0959 (See Alternative - Provider: Khai Murphy RN)2326 (See Alternative - Provider: Eli Childers, ROD) acetaminophen (TYLENOL) tablet 650 mg(Linked Group 1) 650 mg, oral, Every 4 hours PRN, 1st line for pain, fever, Starting on Wed04/15/20 at 0536, Administer if patient can swallow tablets., Indications: Fever, Pain 0959 (Given - Provider: Khai Murphy, ROD)2326 (Given - Provider: Eli Childers, ROD) albuterol 2.5 mg /3 mL (0.083 %) nebulizer solution 2.5 mg 2.5 mg, nebulization, Every 4 hours PRN (manager respiratory care), wheezing, Starting on Wed04/15/20 at 0639 atropine [...] (CV) 0356 (Given - Provider: Princess Brooks, RN) glucagon injection 1 mg 1 mg, intramuscular, [...] Provider: Kimber Pedro RN)0334 (Restarted - Provider: Kimber Pedro RN)0350 (Stopped - Provider: Kimber Pedro [...] Count Last Ordered Date First Ordered Date acetaminophen (TYLENOL) 32 m g/mL oral solution 650 mg 1 04/15/2020 acetaminophen (TYLENOL) suppository 650 mg 1 04/15/2020 albuterol 2.5 mg /3 mL (0.08 3 %) nebulizer solution 2.5 mg 1 04/15/2020 atropine injection 04/15/2020 bivalirudin (ANGIOMAX) 250 m g in sodium chloride 0.9% 50 mL infusion 1 04/15/2020 bivalirudin (ANGIOMAX) injection 1 04/15/20 20 dextrose (D10W) 10% bolus 250 mL 1 04/15/20 20 dextrose oral liquid liquid 15 g 1 04/15/20 20 DOPamine in dextrose 5% 400 mg/250 mL (1,600 mcg/mL) infusion (premix) 1 04/15/2020 eptifibatide (INTEGRILIN) bolus 1 0 glucagon injection 1 mg 1 04/15/2020 heparin in 0.9% sodium chlor [place] 1,000 units/500 mL (2 unit/mL) infusion (premix) 1 04/15/2020 insulin lispro (HumaLOG) inj ection 1-2 Units 1 04/15/2020 ioversoL (OPTIRAY 350) injection 1 04/15/20 20 lidocaine (XYLOCAINE) 10 mg/ mL (1 %) injection 1 04/15/2020 midazolam (VERSED) preservat jeannine free injection 1 04/15/2020 nitroglycerin in dextrose 5% 50 mg/250 mL (200 mcg/mL) infusion (premix) 1 04/15/2020 sodium chloride 0.9% bolus 1 04/15/2020 sodium chloride 0.9% infusion 1 04/15/2020 ticagrelor (BRILINTA) tablet 1 04/15/2020 Lab Orders Without Results Count Last Ordered D ate First Ordered Date POCT GLUCOSE DEVICE 8 04/17/2020 04/15/20 20 Diet Count Last Ordered Date First Orde red Date ADULT DISCHARGE DIET 1 04/17/2020 Nursing Count Last Ordered Date First Orde red Date DISCHARGE ACTIVITY 4 04/17/2020 FOLLOW UP WITH ESTABLISHED PROVIDER 1 04/17 documented in this encounter Care Teams Armored Transport Service Manager Relationship Specialty Start Date End Date Ginny Cordero PA PCP - General 09/13/19 06/30/21 Arturo Nunez MD Consulting Physician Cardiovascular Disease 04/17/20 documented as of this encounter
--- OUTSIDE RECORDS SUMMARY | 2024-12-08 03:48 | XMS_ITS | Encounter Summary ---
Author Organization [facility] Healthcare Address [address] [place] [address] Care Team Providers Care Parker Name Role Phone Ginny Cordero Primary Care Pr ovider Reason for Referral * Diagnostic Imaging (Routine) - Closed Specialty Diagnoses / Procedures Referred By Jong santos Referred To Contact Radiology Diagnoses Other nonspecific abnormal finding of lung field Procedures CT Chest W Contrast Ginny Cordero PA Phone: tel: fax: [address] [phone] Referral ID Status Reason Start Date Expiration Date Visits Re quested Visits Authorized [id number] Closed 06/27/2019 01/05/2021 1 1 Reason for Visit * Diagnostic Imaging (Routine) - Closed Specialty Diagnoses / Procedures Referred By Jong santos Referred To Contact Radiology Diagnoses Other nonspecific abnormal finding of lung field Procedures CT Chest W Contrast Ginny Cordero PA Phone: tel: fax: [address] [phone] Referral ID Status Reason Start Date Expiration Date Visits Re quested Visits Authorized [id number] Closed 06/27/2019 01/05/2021 1 1 Encounter Details Date Type Department Care Team (Latest Contact Info) Description 07/05/2019 10:27 AM CDT - 07/05/2019 11:59 PM CDT Hospital Encounter [facility] [address] [place] [address] Robi Patel MD [address] [place] [address] Ginny Cordero PA [address] [place] [address] Other nonspecific abnormal finding of lung field Discharge Disposition: Discharge to home or self care Social History Tobacco Use Types Packs/Day Years Used Date Smoking Tobacco: Never Assessed Comments Unknown Sex and Gender Information Value Date Recorded Sex Assigned at Not on file Legal 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 Gender Identity Not on file Sexual Orientation Not on file documented as of this encounter Discharge Disposition Disposition Code Departure Means Destination Discharge to home or self care documented in this encounter Plan of Treatment Not on file documented as of this encounter Procedures Procedure Name Priority Date/Time Associated Diagnosis Comments CT CHEST W CONTRAST Schedule Routine, Read Routine (OP Routine) 07/05/2019 11:29 AM CDT Other nonspecific abnormal finding of lung field POCT CREATININE - DEVICE Routine 07/05/2019 10:59 AM CDT documented in this encounter Results * CT Chest W Contrast (07/05/2019 11:29 AM CDT) Anatomical Region Laterality Modality Body N/A Computed Tomogra phy 07/05/2019 12:1 1 PM CDT Impressions 07/05/2019 12:11 PM CDT 1. A few focal areas of post-infectious change in the bilateral upper lobes and right lower lobe may represent sequela of reported pneumonia seen on recent outside hospital. No recurrent pneumonic consolidations. 2. Scattered pulmonary nodules measuring 5 mm or less. An optional chest CT is recommended for follow-up given history of chronic obstructive pulmonary disease. Electronically signed by: Robi Jacques M.D. Narrative 07/05/2019 12:11 PM CDT Examination: CT chest with intravenous contrast DATE: 07/05/2019 11:22 AM COMPARISON: None available. INDICATION: 78-year-old female with chronic obstructive pulmonary disease presents for follow-up after pneumonia diagnosed in [place]. TECHNIQUE: Standard computed tomography of the chest obtained following uneventful intravenous menstruation of 100 mL Optiray 350. FINDINGS: Mild peripheral reticulation in the anterior right upper lobe and lingula as well as mild patchy groundglass opacities in the right lower lobe (slice position -180.5) may be post infectious in nature. No residual, confluent consolidations, pleural effusion or pneumothorax. A few scattered nodules are present, including a 3 mm lingular nodule on slice position -160.5, a 5 mm nodule in the left lower lobe on slice position -190.5, and a 2 mm right lower lobe nodule on slice position -158.5. ??A calcified granuloma in the left lower lobe and small mediastinal and left hilar lymph nodes containing punctate calcifications are compatible with sequela of old granulomatous disease. ??No intrathoracic, axillary or supraclavicular lymphadenopathy. Heart size is normal without pericardial effusion. The imaged upper abdomen demonstrate postcholecystectomy change. Review of images under bone window setting reveals no suspicious osseous lesions or acute fractures. Procedure Note Robi Jacques MD - 07/05/2019 Examination: CT chest with intravenous contrast DATE: 07/05/2019 11:22 AM COMPARISON: None available. INDICATION: 78-year-old female with chronic obstructive pulmonary disease presents for follow-up after pneumonia diagnosed in [place]. TECHNIQUE: Standard computed tomography of the chest obtained following uneventful intravenous menstruation of 100 mL Optiray 350. FINDINGS: Mild peripheral reticulation in the anterior right upper lobe and lingula as well as mild patchy groundglass opacities in the right lower lobe (slice position -180.5) may be post infectious in nature. No residual, confluent consolidations, pleural effusion or pneumothorax. A few scattered nodules are present, including a 3 mm lingular nodule on slice position -160.5, a 5 mm nodule in the left lower lobe on slice position -190.5, and a 2 mm right lower lobe nodule on slice position -158.5. A calcified granuloma in the left lower lobe and small mediastinal and left hilar lymph nodes containing punctate calcifications are compatible with sequela of old granulomatous disease. No intrathoracic, axillary or supraclavicular lymphadenopathy. Heart size is normal without pericardial effusion. The imaged upper abdomen demonstrate postcholecystectomy change. Review of images under bone window setting reveals no suspicious osseous lesions or acute fractures. IMPRESSION: 1. A few focal areas of post-infectious change in the bilateral upper lobes and right lower lobe may represent sequela of reported pneumonia seen on recent outside hospital. No recurrent pneumonic consolidations. 2. Scattered pulmonary nodules measuring 5 mm or less. An optional chest CT is recommended for follow-up given history of chronic obstructive pulmonary disease. Electronically signed by: Robi Jacques M.D. us Ginny MATTHEW IMG CT PROCEDURE S Final Result * POCT creatinine (07/05/2019 10:59 AM CDT) Creatinine POC 0.8 0.6 - 1.1 mg/dL [facility] Blood specimen (specimen) 07/05/2019 10:59 AM CDT 07/05/2019 10:59 AM CDT us Ginny MATTHEW LAB POCT ORDERAB LES - DEVICE Final Result [facility] Department [place] [address] documented in this encounter Visit Diagnoses Diagnosis Other nonspecific abnormal finding of lung field documented in this encounter Administered Medications Inactive Administered Medications - up to 3 most recent administrations Medication Order MAR Action Action Date Dose Rate Site ioversol (OPTIRAY 350) syringe syringe 100 mL 100 mL, intravenous, Once in imaging, contrast, Starting on Wed07/05/19 at 1117, For 1 dose Given 07/05/2019 11:29 AM CDT 100 mL documented in this encounter Orders Medications Ordered That Prince ht Not Have Been Administered Count Last Ordered Date First Ordered Date ioversol (OPTIRAY 350) syrin ge syringe 100 mL 1 07/05/2019 documented in this encounter Care Teams Parker Relationship Specialty Start Date End Date Ginny Cordero PA PCP - General 07/04/19 09/11/19 documented as of this encounter
== END 2024-12-04 17:00 | disposition home or self-care (01) ==
LOC: ANHED 12-01 04:23 → ANH3MEDSUR 12-01 15:09
PROVIDERS: Internal Medicine; Admitting Provider Internal Medicine; Emergency Provider Emergency Medicine; PCP Nurse Practitioner Adult Health; Visit Provider Hospitalist
DX: J10.00 Influenza due to other identified influenza virus with unspecified type of pneumonia (principal); J44.0 Chronic obstructive pulmonary disease with (acute) lower respiratory infection; I25.10 Atherosclerotic heart disease of native coronary artery without angina pectoris; D72.829 Elevated white blood cell count, unspecified; I10 Essential (primary) hypertension; E78.5 Hyperlipidemia, unspecified; E87.6 Hypokalemia; G89.29 Other chronic pain; M48.00 Spinal stenosis, site unspecified; I48.91 Unspecified atrial fibrillation; F17.210 Nicotine dependence, cigarettes, uncomplicated; Z20.822 Contact with and (suspected) exposure to COVID-19; Z79.01 Long term (current) use of anticoagulants; Z79.51 Long term (current) use of inhaled steroids; Z79.899 Other long term (current) drug therapy; Z95.5 Presence of coronary angioplasty implant and graft; Z96.653 Presence of artificial knee joint, bilateral; Z90.79 Acquired absence of other genital organ(s); Z90.722 Acquired absence of ovaries, bilateral; Z90.49 Acquired absence of other specified parts of digestive tract
CPT/HCPCS: 36415; 71046; 80053; 81001; 83605; 83735; 84145; 84484; 85025; 85027; 87040; 87637; 93005; 94640; 96365; 96366; 96375; 96376; 97165; 99285; A9270; G0378; J0456; J0696; J2405

== ENCOUNTER 2025-02-28 15:38 | Outpatient (CLI) | payer MEDICARE, SELFPAY ==
--- NOTE | ~2025-02-28 | XR_ITS ---
CHEST RADIOGRAPH, PA AND LATERAL CLINICAL HISTORY: Z87.01 - Personal history of pneumonia (recurrent) . COMPARISON: 11/30/2024 TECHNIQUE: PA and lateral views of the chest. FINDINGS Loop recorder projects to the left of midline. The remainder of the cardiomediastinal silhouette is otherwise unremarkable. Pectus excavatum is also noted, which renders the right middle lobe hazy at baseline. Blunting of the right costophrenic sulcus suggesting a small right-sided pleural effusion. Calcified granuloma within the left lower lobe, unchanged. The lungs are otherwise clear. IMPRESSION: Small right-sided pleural effusion without focal infiltrate. Reviewed, dictated and finalized at location A.
--- OUTSIDE RECORDS SUMMARY | 2025-02-28 16:53 | XMS_ITS | Referral Summary ---
Author Organization [facility] Address [address] [place] [address] Care Team Providers Care Residency Program Coordinator Name Role Phone Merlin Nunez MD Unavailable [phone] Roxana Graham NP Primary Care Provider [phone] Encounters Date Type Department Care Team Description 02/01/2025 Telephone [facility] Cardiology [address] [place] [address] Robi Garcia MD 01/18/2025 11:15 AM CUSTOMS AND IMMIGRATION OFFICER Office Visit [facility] Cardiology [address] [place] [address] Robi Garcia MD Coronary artery disease involving [place] coronary artery of [place] heart without angina pectoris (Primary Dx); PSVT (paroxysmal supraventricular tachycardia); Paroxysmal atrial fibrillation (HCC) from Last 3 Months Allergies Active Allergy [...] 0 Active escitalopram (LEXAPRO) 20 mg tablet 1 Active naloxone HCl (NARCAN NASL) Administer [...] mg SL tabletIndications :Coronary artery disease of [place] artery of [place] heart with stable angina pectoris Place 1 tablet (0.4 mg total) under the tongue every 5 (five) minutes as needed for chest pain 25 tablet 3 4 Active losartan (COZAAR) 50 mg tablet TAKE 1 TABLET BY MOUTH EVERY DAY 90 tablet 2 4 Active latanoprost (XALATAN) 0.005 % ophthalmic solution 4 Active pravastatin (PRAVACHOL) 40 mg tabletIndications :Coronary artery disease involving [place] coronary artery of [place] heart without angina pectoris TAKE 1 TABLET BY MOUTH EVERY DAY 90 tablet 2 4 Active rivaroxaban (Xarelto) 20 mg tabletIndications :atrial fibrillation Take 1 tablet (20 mg total) by mouth daily 30 tablet 6 4 Active Active Problems Problem Noted Date Diagnosed Date Status post placement of implantable loop record er 01/20/2024 Overview (01/20/2024): Tango [id number] Loop Recorder. Dx; PAF, PSVT, Syncope. DOI 01/19/2024-[facility]. Subacute cough 01/11/2024 PAD (peripheral artery disease) 05/13/2022 Paroxysmal atrial fibrillation 05/13/2022 PSVT (paroxysmal supraventricular tachycardia) 0 05/13/2022 Iron deficiency anemia 05/13/2022 Coronary artery disease invo lving [place] coronary artery of [place] heart without angina pectoris 07/01/2021 H/O acute [...] in 2013. She follows with PCP in [place] who manages her COPD medications (on multiple [...] Date Smoking Tobacco: Every Day Cigarettes 0.1 44.3 Started: 11/22/1980 Smokeless Tobacco: Never Tobacco Cessation:Ready to Q uit: Not Asked; Counseling Given: Not Answered Comments Unknown Sex and Gender Information Value Date Recorded Sex Assigned at Not on file Legal Sex Female 7:12 PM CUSTOMS AND IMMIGRATION OFFICER Gender Identity Not on file Sexual Orientation Not on file Last Filed Vital Signs Vital Sign Reading Time Taken Comments Blood Pressure 126/60 01/18/2025 11:06 AM CUSTOMS AND IMMIGRATION OFFICER Pulse 56 01/18/2025 11:06 AM CUSTOMS AND IMMIGRATION OFFICER Temperature 36.6 C (97.8 F) 04/17/2020 12:00 PM CDT Respiratory Rate 18 07/22/2021 12:05 PM CDT Oxygen Saturation 92% 01/18/2025 11:06 AM CUSTOMS AND IMMIGRATION OFFICER Inhaled Oxygen Concentration - - Weight 52 kg (114 lb 9.6 oz) 01/18/2025 11:06 AM CUSTOMS AND IMMIGRATION OFFICER Height 149.9 cm (4' 11 ) 01/18/2025 11:06 AM CUSTOMS AND IMMIGRATION OFFICER Body Mass Index 23.15 01/18/2025 11:06 AM CUSTOMS AND IMMIGRATION OFFICER Plan of Treatment Not on file Medical Devices Implanted Type Area Nature Photographer Device Identifier Shelf Expiration Date Model / Serial / Lot [employer] V[employer] [id number] System Coronary Stent Xience Rivka Everolimus L18 Mm Od3 Mm Rapid Exchange - [id number] Implanted:Qty: 1 on 04/15/2020 by Merlin Nunez MD at [facility] [employer] [id number] / / [employer] [id number] System Coronary Stent Xience Rivka Everolimus L38 Mm Od3.5 Mm Rapid Exchange - [id number] Implanted:Qty: 1 on 04/15/2020 by Merlin Nunez MD at [facility] Vascular [id number] / / Insurance [facility] Address: [place] [id number] [facility] Address: [place] [id number] [facility] Address: [address] [address] [place] [address] [facility] Address: [address] [address] [place] [address] Advance Directives For more information, please contact: [phone] * Full Code (Latest Code Status on File) Date Activated Date Inactivated Comments 04/15/2020 5:41 AM 04/17/2020 6:04 PM * Full Code Date Activated Date Inactivated Comments 09/11/2019 7:58 PM 09/15/2019 6:52 PM Care Teams Residency Program Coordinator Relationship Specialty Start Date End Date Roxana Graham NP [address] [place] [address] PCP - General Nurse Practitioner 11/30/23 Merlin Nunez MD Consulting Physician Cardiovascular Disease 04/17/20
--- OUTSIDE RECORDS SUMMARY | 2025-02-28 16:53 | XMS_ITS | CONTINUITY OF CARE DOCUMENT ---
Author Name ruchi, ruchi Address Unknown Organization [facility] Address [address] [place] [address] Phone [phone] Care Team Providers Care Crate Maker Name Role Phone Richard Brown MD Unavailable [phone] SHADI ZIMMER Unavailable SHADI ZIMMER Unavailable PROBLEMS Condition Status Date Provider Notes PVD [...] In-person encounter Office Visit Richard Brown MD [place] [facility] - In-person encounter Office Visit Richard Brown MD [place] Family History of Hypertension: - In-person encounter Office Visit Richard Brown MD [place] [facility] SyncopeDizziness - In-person encounter Office Visit Richard Brown MD [place] [facility] Fatigue - In-person encounter Office Visit Merlin Nunez MD [place] [facility] - In-person encounter Office Visit Steven Duval MD [facility] Office CAD s/p stents to RCA patent on cath 05/11 , [address], incr LVEDPChest painArm pain, leftHTN essentialHyperlipidemiaCOPD - In-person encounter Office Visit Richard Brown MD [facility] VITAL SIGNS Date Observation Value Provider Body Mass Index (Ratio) 25.78 kg/m2 Patel Brown MD blood pressure, diastolic 82 mm[Hg] [facility] blood pressure, systolic 144 mm[Hg] Lizzeth [facility] pulse rate 75 /min [facility] oxygen saturation, oximetry 96 % [facility] respiratory rate E&M 16 /min [facility] blood pressure, cuff size regular [facility] weight E&M 132 [lb_av] [facility] height E&M 60 [in_i] [facility] Body Mass Index (Ratio) 29.96 kg/m2 [...] blood pressure, diastolic 70 mm[Hg] Kr isty [place] blood pressure, systolic 150 mm[Hg] Jb Harris [...] HOUR completed one tab. daily - [facility] Nitrostat 0.4 mg tablet, sublingual active 1 tablet under tongue every two hours as needed eMrlin Nunez MD LASIX 20 MG ORAL TABLET [...] Richard Brown MD smoking status Former smoker aCrmenza myrick social history E&M S moking History: [...] Payer name Policy type / Coverage type Industry red democrat ID UHC MEDICARE COMPLETE HMO Other [id number] ADVANCE DIRECTIVES Name Date DISCUSSED - [...] Cardiology [facility]:Check carotid US and paint prep technician. [facility] follow up Marcus White [...] on 04/15/20 in the setting of an GA. She is currently having symptoms of L arm pain. Also had symptoms of chest pain and diaphoresis last night. Discussed with pt and her daughter the options of doing a stress test or a repeat heart catheterization. Will arrange for repeat cardiac cath with Dr. Nunez. . PTCA stenting of high-grade 100% occlusion [...] Dr. Nunez in the setting of an GA. She is currently having symptoms of L [...]
--- OUTSIDE RECORDS SUMMARY | 2025-02-28 16:53 | XMS_ITS | Clinical Summary ---
Author Organization [facility] Address [address] [place] [address] Care Team Providers Care Financial Coordinator Name Role Phone Merlin Nunez MD Unavailable [phone] Roxana Graham NP Primary Care Provider Allergies Active Allergy Reactions Criticality Noted Date [...] mg SL tabletIndications :Coronary artery disease of [place] artery of [place]osh[place] heart with stable angina pectoris Place 1 tablet (0.4 mg total) under the tongue every 5 (five) minutes as needed for chest pain 25 tablet 3 4 Active losartan (COZAAR) 50 mg tablet TAKE 1 TABLET BY MOUTH EVERY DAY 90 tablet 2 4 Active latanoprost (XALATAN) 0.005 % ophthalmic solution 4 Active pravastatin (PRAVACHOL) 40 mg tabletIndications :Coronary artery disease involving [place] coronary artery of [place] heart without angina pectoris TAKE 1 TABLET [...] Loop Recorder. Dx; PAF, PSVT, Syncope. DOI 01/19/2024-[facility] remote f/u. Subacute cough 01/11/2024 PAD (peripheral artery disease) 05/13/2022 Paroxysmal atrial fibrillation 05/13/2022 PSVT (paroxysmal supraventricular tachycardia) 0 05/13/2022 Iron deficiency anemia 05/13/2022 Coronary artery disease invo lving [place] coronary artery of [place] heart without angina pectoris 07/01/2021 H/O acute [...] in 2013. She follows with PCP in [place] who manages her COPD medications (on multiple [...] Type Department Care Team Description 02/01/2025 Telephone [facility] Cardiology [address] [place] [address] Robi Garcia MD 01/18/2025 11:15 AM TELEGRAPHIC TYPEWRITER MECHANIC Office Visit [facility] Medical [facility] Cardiology [address] [place] [address] Robi Garcia MD Coronary artery disease involving [place] coronary artery of [place] heart without angina pectoris (Primary Dx); PSVT (paroxysmal supraventricular tachycardia); Paroxysmal atrial fibrillation (HCC) from Last 3 Months Surgical History Surgery Date Site/Laterality Comments TOTAL KNEE ARTHROPLASTY Bilateral CHOLECYSTECTOMY BACK SURGERY BLADDER REPAIR Medical History Medical History Date Comments Head and neck cancer (HCC) Lung nodule HTN (hypertension) COPD (chronic obstructive pu lmonary disease) (HCC) Coronary artery disease Arthritis Asthma Myocardial infarction (HCC) 03/2020 Occl uded proximal RCA, stent proximal RCA, stent PDA, Dr. Li, [facility] Depression Mixed hyperlipidemia Chronic back pain Kidney [...] on file Legal Sex Female 7:12 PM TELEGRAPHIC TYPEWRITER MECHANIC Gender Identity Not on file Sexual Orientation Not on file Obstetrics History Last Filed Vital Signs Vital Sign Reading Time Taken Comments Blood Pressure 126/60 01/18/2025 11:06 AM TELEGRAPHIC TYPEWRITER MECHANIC Pulse 56 01/18/2025 11:06 AM TELEGRAPHIC TYPEWRITER MECHANIC Temperature 36.6 C (97.8 F) 04/17/2020 12:00 PM CDT Respiratory Rate 18 07/22/2021 12:05 PM CDT Oxygen Saturation 92% 01/18/2025 11:06 AM TELEGRAPHIC TYPEWRITER MECHANIC Inhaled Oxygen Concentration - - Weight 52 kg (114 lb 9.6 oz) 01/18/2025 11:06 AM TELEGRAPHIC TYPEWRITER MECHANIC Height 149.9 cm (4' 11 ) 01/18/2025 11:06 AM TELEGRAPHIC TYPEWRITER MECHANIC Body Mass Index 23.15 01/18/2025 11:06 AM TELEGRAPHIC TYPEWRITER MECHANIC Plan of Treatment Health Maintenance Due Date Last Done Comments Depression Screening 1940 Osteoporosis Screening-Bone Density Scan 1941 DTaP/Tdap/Td Vaccine (1 - Tdap) 1952 Hepatitis B Screening 1959 Pneumococcal vaccine 65+ (1 of 2 - PCV) 1960 Zoster Vaccine (1 of 2) 1991 Well Visit 65+ 2006 Fall Risk Assessment 04/17/2021 04/17/2020 Influenza Vaccine (#1) 2024 10/19/2016 Medical Devices Implanted Type Area Gasateria Attendant Device Identifier Shelf Expiration Date Model / Serial / Lot [employer] V[employer] [id number] System Coronary Stent Xience Rivka Everolimus L18 Mm Od3 Mm Rapid Exchange - [id number] Implanted:Qty: 1 on 04/15/2020 by Merlin Nunez MD at [facility] [employer] [id number] / / [employer] [id number] System Coronary Stent Xience Rivka Everolimus L38 Mm Od3.5 Mm Rapid Exchange - [id number] Implanted:Qty: 1 on 04/15/2020 by Merlin Nunez MD at [facility] [employer] [id number] / / Insurance [place] [id number] UHC MEDICARE ADVANTAGE [place] [id number] [place] [id number] UHC MEDICARE ADVANTAGE Advance Directives For more information, please contact: [phone] * Full Code (Latest Code Status on File) Date Activated Date Inactivated Comments 04/15/2020 5:41 AM 04/17/2020 6:04 PM * Full Code Date Activated Date Inactivated Comments 09/11/2019 7:58 PM 09/15/2019 6:52 PM Care Teams Financial Coordinator Relationship Specialty Start Date End Date Roxana Graham NP [address] [place] [address] PCP - General Nurse Practitioner 11/30/23 Merlin Nunez MD Consulting Physician Cardiovascular Disease 04/17/20
[2025-02-28 19:04] LABS: Basophils Absolute Auto 0.1 K/mm3 (0.0-0.1); Basophils Percent Auto 0.3 % (0.2-1.2); Eosinophils Absolute Auto 0.2 K/mm3 (0-0.3); Hematocrit 41.5 % (37.0-47.0); Hemoglobin 12.6 g/dL (12.0-15.0); Immature Granulocyte Absolute 0.08 K/mm3 (0.00-0.031); Immature Granulocyte Percent A 0.5 % (0-0.5); Lymphocytes Absolute Auto 2.96 K/mm3 (0.9-3.2); Lymphocytes Percent Auto 18.9 % (18.3-44.2); Mean Corpuscular HGB Conc 30.4 g/dl (32-36); Mean Corpuscular Hemoglobin 27.4 pg (26-34); Mean Corpuscular Volume 90.2 fl (80-100); Mean Platelet Volume 11.3 fl (7.4-10.4); Monocytes Absolute Auto 1.1 K/mm3 (0.1-0.6); Monocytes Percent Auto 6.7 % (2.6-8.5); Neutrophils Absolute Auto 11.4 K/mm3 (1.3-6.7); Neutrophils Percent Auto 72.6 % (45.5-73.1); Platelet Count Result 243 k/mm3 (150-375); Red Cell Distribution Width 16.1 % (11.5-14.5); White Blood Count 15.7 K/mm3 (4.5-10.0)
[2025-02-28 19:35] LABS: Anion Gap 11 mmol/L (4-12); Blood Urea Nitrogen 13 mg/dL (7-17); Calcium 9.5 mg/dL (8.4-10.2); Carbon Dioxide 23 mmol/L (22-30); Chloride 106 mmol/L (98-107); Estimated Glomerular Filt Rate > 60; Glucose 88 mg/dL (65-110); Potassium 3.2 mmol/L (3.4-5.0); Sodium 140 mmol/L (137-145)
[2025-02-28 19:41] LABS: Add Urine Microscopic? NO; Appearance Urine Clear (Clear); Bilirubin Urine Negative (Negative); Blood Urine Negative (Negative); Color Urine Yellow (Yellow); Glucose Urine UA Negative (Negative); Ketones Urine Negative (Negative); Leukocyte Esterase Ur Negative LEU/UL (Negative); Nitrate Urine Negative (Negative); Protein Urine Negative (Negative); Specific Grav Ur 1.016 (1.001-1.035); pH Urine 6.5 (5.0-9.0)
== END 2025-02-28 15:39 | disposition home or self-care (01) ==
LOC: ANHBWCLAB 15:39
PROVIDERS: PCP Nurse Practitioner Adult Health; Visit Provider Nurse Practitioner Adult Health
DX: R53.1 Weakness (principal); J90 Pleural effusion, not elsewhere classified; R39.9 Unspecified symptoms and signs involving the genitourinary system; J44.9 Chronic obstructive pulmonary disease, unspecified; Z87.01 Personal history of pneumonia (recurrent)
CPT/HCPCS: 36415; 71046; 80048; 81003; 85025; 87086

== ENCOUNTER 2025-04-26 13:52 | Outpatient (CLI) | payer MEDICARE, SELFPAY ==
--- NOTE | ~2025-04-26 | MR_ITS ---
MRI of the lumbar spine Clinical History: Radiculopathy Technique: Axial T2-weighted images, and sagittal T1-weighted, T2-weighted, and T2 fat-sat images wer e acquired. Findings: No acute fracture or subluxation evident. 4 mm retrolisthesis of L1 over L2 present. 6 mm r etrolisthesis of L2 over L3 present. 3 mm retrolisthesis of L3 over L4 present. 10 mm anterolisthesis of L4 over L5 present. Osseous alignment is essentially stable from prior exam. No suspicious bone m arrow signal abnormality seen. At L1-L2, there is severe degenerative disc narrowing. Disc bulge and moderate facet arthropathy are present. There is mild central canal stenosis. There is severe bilateral neural foraminal narrowing, right worse than left. At L2-L3, there is severe degenerative tearing. Disc bulge and severe facet arthropathy result in sev ere spinal canal stenosis/thecal sac compression. There is severe bilateral neural foraminal narrowin g. At L3-L4, there is severe degenerative disc narrowing. Disc bulge and advanced facet arthropathy resu lt in moderate to severe spinal canal stenosis. There is severe bilateral neural foraminal narrowing. At L4-L5, there is severe degenerative tearing. Disc bulge/uncovering and severe facet arthropathy ar e present, with severe spinal canal stenosis/thecal sac compression. There is severe bilateral neural foraminal, otherwise. At L5-S1, there is severe degenerative disc narrowing. There is mild disc bulge and severe facet arth ropathy. There is mild central canal stenosis. There is severe bilateral neural foraminal caliber oth erwise. Paravertebral soft tissues are unremarkable. 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 Reviewed, dictated and finalized at location . Impression: Severe degenerative spondylosis throughout the lumbar spine, with multilevel se norma spinal canal stenosis and multilevel severe neural foraminal narrowing indu aterally. 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
== END 2025-04-26 13:53 | disposition home or self-care (01) ==
LOC: MICIMG 13:59
PROVIDERS: PCP Nurse Practitioner Adult Health; Visit Provider Nurse Practitioner Family
DX: M47.816 Spondylosis without myelopathy or radiculopathy, lumbar region (principal); M48.061 Spinal stenosis, lumbar region without neurogenic claudication; M43.16 Spondylolisthesis, lumbar region
CPT/HCPCS: 72148